=== PATIENT | female | born 1965 | race Caucasian/White ===

== ENCOUNTER 2017-02-14 14:12 | Day surgery (SDC) | payer OTHER ==
[~2017-02-14 14:12] MED LIST: METO50TA PO; MULT-65 PO; PROM25TA5 PO
[2017-02-14 14:48] VITALS: BP 124/96; PULSE 86; RESP 18; TEMP 98; O2SAT 98
[2017-02-14] MEDS ORDERED: METO50TA PO (14:54)
[2017-02-14] MEDS ORDERED: PROM12.54 PO (14:54)
[2017-02-14] MEDS ORDERED: MIRT30TA PO (14:54)
[2017-02-14] MEDS ORDERED: VENL75TA PO (14:54)
[2017-02-14] MEDS: SODIUM CHLORID 0.9% 500 ML INJ 500 ML IV SCH (15:15)
[2017-02-14] MEDS ORDERED: INSULIN HUMAN REGULAR 1,000 UNITS/10 ML VIAL SQ PRN (15:15)
[2017-02-14] MEDS ORDERED: POVIDONE IODINE 5% (ANTISEPSIS KIT) 4 APPLICATIONS EACH NARE PRN (15:15)
[2017-02-14] MEDS ORDERED: SODIUM CHLORID 0.9% 500 ML IV PRN (15:15)
[2017-02-14] MEDS ORDERED: METOPROLOL TARTRATE 25 MG TAB PO PRN (15:15)
[2017-02-14] MEDS ORDERED: LORazepam 1 MG TAB SL SCH (15:15)
[2017-02-14] MEDS ORDERED: CHLORHEXIDINE GLUCONATE 2 % 1 PACK (2 CLOTHS) TOPICAL PRN (15:15)
[2017-02-14] MEDS ORDERED: LACTATED RINGER'S 1000 ML IV PRN (15:15)
[2017-02-14] MEDS ORDERED: PROPOFOL 200 MG/20 ML AMP OTHER ONE (15:23)
[2017-02-14 15:24] LABS: AUTOMATED NEUTROPHIL # 3.7 TH/MM3 (1.8-7.7); BASOPHIL % 0.6 % (0.0-2.0); EOSINOPHIL % 0.7 % (0.0-4.0); HEMATOCRIT 39.7 % (35.0-46.0); HEMO FLAGS DIFF FINAL; LYMPH % 27.7 % (9.0-44.0); LYMPHOCYTE # 1.7 TH/MM3 (1.0-4.8); MEAN CELL VOLUME 109.4 FL (80.0-100.0); MEAN CORPUSCULAR HEMOGLOBIN 36.9 PG (27.0-34.0); MEAN CORPUSCULAR HGB CONC 33.7 % (32.0-36.0); MONO % 9.9 % (0.0-8.0); NEUT % 61.1 % (16.0-70.0); PLATELET COUNT 224 TH/MM3 (150-450); RED BLOOD COUNT 3.63 MIL/MM3 (4.00-5.30); RED CELL DISTRIBUTION WIDTH 13.8 % (11.6-17.2)
[2017-02-14 15:28] LABS: BICARBONATE 25.3 MEQ/L (21.0-32.0); POTASSIUM 4.3 MEQ/L (3.5-5.1)
[2017-02-14] MEDS ORDERED: MIDAZOLAM HCL 2 MG/2 ML VIAL ONE (15:28)
[2017-02-14] MEDS ORDERED: ISOPROTERENOL HCL 1 MG/5 ML AMP ONE (15:28)
[2017-02-14 15:35] LABS: APTT (PATIENT) 23.8 SEC (24.3-30.1); PROTHROMBIN TIME - PATIENT 10.5 SEC (9.8-11.6)
--- NOTE | 2017-02-14 17:08 | CATHPROC ---
[employer] HIS Report Study Information Study Number Admission Scheduled Start Study Start [id number] Feb 14 2017 2:12PM 02/14/2017 Feb 14 2017 3:21PM [place] Service Electrophysiology Study Admit Source Facility Department Other [facility] - Tech Ed/Woodshop Teacher Physician and Clinical Staff Initial Marcy Benson Automobile Parts Assembler Glenroy Sal,RT(R) Other Anesthesia, TMR TEACHER Other Leti Kruger,RT(R) TECH2 Recorder Corinna Palomino RN Procedures Performed Procedure Location (Site) Vessel Name RF Ablation Isthmus Other Equipment Time Dairy Specialist Description Size Mfg Part Number Used/Scraped BIOSENSE ARANA CATHETER, CELSIUS, 4MM, D [id number] 16:33 FR 7 Used INC. TYPE QUAD *[id number] 15:24 Virtual[employer] INDUSTRIES PACK, CCL CUSTOM * Used *[id number] 15:24 Virtual[employer] PACER BUCIO, LIMB * 2530 *[id number] Used [id number] 15:24 Dweho BLANKET,WARM AIR CCL * Used *[id number] 15:27 [employer] MEDICAL CATHETER, JSN, QUAD FR 5 Used *[id number] 15:25 [employer] MEDICAL CATHETER, JSN, QUAD FR 5 Used *[id number] 15:25 [employer] MEDICAL CATHETER, JSN, QUAD FR 5 Used *[id number] 15:25 [employer] MEDICAL CATHETER, JSN, QUAD FR 5 Used *[id number] 15:24 [employer] MEDICAL ELECTRODE KIT, UBALDO X SURFACE * [id number] Used [id number] 15:26 [employer] MEDICAL SHEATH, EPS, FR5 FAST CATH FR 5 Used *[id number] 15:26 [employer] MEDICAL SHEATH, EPS, FR5 FAST CATH FR 5 Used *[id number] 15:26 [employer] MEDICAL SHEATH, EPS, FR5 FAST CATH FR 5 Used *[id number] 15:26 [employer] MED[employer] SHEATH, EPS, FR6 FAST CATH FR [address] [id number] Used 15:26 [employer] MED[employer] SHEATH, EPS, FR8 FAST CATH FR 8 [id number] Used [facility], ELECTROSURGICAL 15:24 * [id number] *[id number] Used SURGICAL GROUNDING (BLUE) History: Risk Factors Family History of Hypertension Dyslipidemia Previous ND Previous Heart Failure Premature CAD Yes No No No No Prior Valve Prior PCI Prior CABG Surgery No No No Cerebrovascular Peripheral Artery Chronic Lung On Dialysis Diabetes Disease Disease Disease No No No Yes No Medication Medication Total Dose (Bolus/Oral) Medication Total Dosage/Unit 1% XYLOCAINE 40 mL Medications (Bolus/Oral) Medication Time Given Dosage/Unit Administered By Reason 1% XYLOCAINE 02/14/2017 4:22:07 PM 20 mL George, Matteoseema 20 mL 1% XYLOCAINE given in lab by Marcy Vazquez in Right Groin via Subcutaneous. Ordered by Ananth Vazquez. 1% XYLOCAINE 02/14/2017 4:26:00 PM 20 mL George, Hanscy 20 mL 1% XYLOCAINE given in lab by Marcy Vazquez in Right Groin via Subcutaneous. Ordered by Ananth Vazquez. Initial Case Assessment Cardiovascular HR Rhythm NIBP Chest Pain 87 SR 132/81 0 Edema Present Skin color Skin None Normal Warm Dry Circulatory - Right Pulses Dorsalis Pedis 2 Scale (0,1,2,3,4,d) Circulatory - Left Pulses Dorsalis Pedis 2 Scale (0,1,2,3,4,d) Neurological State Oriented to time-place- Alert Moves all extremities person Respiration - General Respiration Rate SpO2 (%) O2 (lpm) (B/min) 18 100 2 Final Case Assessment Cardiovascular HR Rhythm NIBP Chest Pain 100 ST 94/58 0 Edema Present Skin color Skin None Normal Warm Dry Circulatory - Right Pulses Dorsalis Pedis 2 Scale (0,1,2,3,4,d) Circulatory - Left Pulses Dorsalis Pedis 2 Scale (0,1,2,3,4,d) Neurological State Oriented to time-place- Alert Moves all extremities person Respiration - General Respiration Rate SpO2 (%) O2 (lpm) (B/min) 18 100 2 Chronological Log Time Study Chronological Log 15:23:54 Patient arrived via Bed. 15:23:56 Patient Name, D.O.B, / Armband Verified By R.N. 15:23:57 Consent signed by the physician and the patient and verified by the Tech Ed/Woodshop Teacher staff. 15:23:58 Pre-op and post- op instructions given; patient acknowledges understanding of instructions. 15:24:04 Anesthesia at bedside. Assumes care of patient. SEE RECORDS FOR ALL MEDS AND VITALS DURING PROCEDURE 15:24:05 Presedation assessment performed by Tech Ed/Woodshop Teacher RN. 15:43:52 Patient has been NPO for More than 6Hrs. 15:43:54 Skin Breakdown- RIGHT KNEE SCAB NOTED 15:44:17 Disposable Defibrillator Pads Placed On Patient. 15:44:19 Marcia Prominences Protected 15:44:20 A # 20 IV was noted in the Antecubital (left). Grade = 0 15:44:43 A # 22 IV was noted in the Forearm (right). Grade = 0 15:45:12 History and physical on the chart or being dictated. Assessment: Initial Case, HR=87 BPM, Rhythm=SR, GQBD=764/81 mmhg, Chest Pain=0, Edema=None, Col or=Normal, Skin = Warm, Dry Right Pulses: Gonzalo Ped=2 15:45:13 Left Pulses: Gonzalo Ped=2 Neurological: State=Alert, Ox3, DOZIER Respiration: Resp=18 B/min, WpH8=761 %, O2=2 lpm 15:46:17 Bilateral groins prepped with 2% chlorhexidine, and with a 3 min. waiting time. 15:49:39 Reference ECG taken Time Out. Correct patient, procedure, procedure equipment, site and side verified with physicia n present. Time 16:20:05 concurred by MD, individual staff and TMR TEACHER. Time Out #2 - Consents verified, patient in correct position, all results are labled and displa yed, safety precautions 16:20:10 taken, antibiotics administered. Time out concurred by MD, individual staff and TMR TEACHER in procedu re 16:21:40 Case Start 16:22:07 20 mL 1% XYLOCAINE given in lab by Marcy Vazquez in Right Groin via Subcutaneous. Ordered b y Marcy Vazquez. 16:22:26 Vascular access was obtained in the Fem Vein (left). 16:22:47 Vascular access was obtained in the Fem Vein (left). 16:22:48 Vascular access was obtained in the Fem Vein (left). 16:25:43 A SHEATH, EPS, FR5 FAST CATH FR 5 was advanced into the Fem Vein (left) using the Modified Seldinger technique. 16:25:51 A SHEATH, EPS, FR5 FAST CATH FR 5 was advanced into the Fem Vein (left) using the Modified Seldinger technique. 16:25:55 A SHEATH, EPS, FR5 FAST CATH FR 5 was advanced into the Fem Vein (left) using the Modified Seldinger technique. 16:26:00 20 mL 1% XYLOCAINE given in lab by Marcy Vazquez in Right Groin via Subcutaneous. Ordered b y Marcy Vazquez. 16:26:06 Vascular access was obtained in the Fem Vein (right). 16:26:09 Vascular access was obtained in the Fem Vein (right). 16:26:12 A SHEATH, EPS, FR6 FAST CATH FR 6 was advanced into the Fem Art (right) using the Modified Seldinger technique. 16:26:17 A SHEATH, EPS, FR8 FAST CATH FR 8 was advanced into the Fem Vein (left) using the Modified Seldinger technique. A CATHETER, JSN, QUAD FR 5 was advanced vis Fem Vein (right) and placed in the CS. Placement wa s visually 16:36:32 confirmed under fluoroscopy. A CATHETER, JSN, QUAD FR 5 was advanced vis Fem Vein (left) and placed in the HIS. Placement wa s visually 16:37:16 confirmed under fluoroscopy. A CATHETER, JSN, QUAD FR 5 was advanced vis Fem Vein (left) and placed in the HRA. Placement wa s visually 16:37:23 confirmed under fluoroscopy. A CATHETER, JSN, QUAD FR 5 was advanced vis Fem Vein (left) and placed in the RVA. Placement wa s visually 16:37:30 confirmed under fluoroscopy. 16:37:56 EP STUDY IN PROGRESS A CATHETER, CELSIUS, 4MM, D TYPE QUAD FR 7 was advanced vis Fem Vein (left) and placed in the I sthmus. 16:43:30 Placement was visually confirmed under fluoroscopy. 16:43:49 RF Ablation of the Isthmus with a CATHETER, CELSIUS, 4MM, D TYPE QUAD FR 7. 16:52:46 ABLATION IN PROGRESS 16:56:45 CATHETER REMOVED Assessment: Final Case, PE=636 BPM, Rhythm=ST, NIBP=94/58 mmhg, Chest Pain=0, Edema=None, Color =Normal, Skin = Warm, Dry Right Pulses: Gonzalo Ped=2 17:01:34 Left Pulses: Gonzalo Ped=2 Neurological: State=Alert, Ox3, DOZIER Respiration: Resp=18 B/min, KaC1=431 %, O2=2 lpm 17:01:35 Catheter(s) removed without difficulty 17:01:36 Sheath(s) left in place, will be removed in Holding Area 17:01:38 Case End 17:01:39 Sterile dressing applied to site 17:01:40 No case complications noted. 17:01:41 Cine recording checked. 17:01:42 Bedside Report will be given. 17:01:52 DOCU called. Spoke to LUPE 17:04:19 Defibrillator and ground pads removed. Skin intact. 17:04:20 Verbal Stimulation=2 Physical Stimulation=2 Airway=2 Respiration=2 TOTAL=8. (0=absent, 1=l imited, 2=present) End Study - Contrast Media Used In Study Contrast Total Opened (mL) Total Used (mL) Total Wasted (mL) Unspecified 0 0 0 End Study - Radiation Exposure Fluoro Time (minutes) 5.3 End Study - Patient Disposition Complications Transferred To Interventional Outcome No Telemetry Bed successful
[2017-02-14] MEDS ORDERED: ATROPINE SULFATE 1 MG/ML VIAL IV PRN (18:30)
[2017-02-14] MEDS ORDERED: METOCLOPRAMIDE HCL 10 MG/2 ML VIAL IV PRN (18:30)
[2017-02-14] MEDS ORDERED: LIDOCAINE HCL 1% 50 ML VIAL INFIL PRN (18:30)
[2017-02-14] MEDS ORDERED: SODIUM CHLOR 0.9% 250 ML INJ 250 ML IV PRN (18:30)
[2017-02-14] MEDS ORDERED: oxyCODONE/ACETAMINOPHEN 5 MG/325 MG TAB PO PRN ×2 (18:30)
[2017-02-14] MEDS ORDERED: ONDANSETRON HCL 4 MG/2 ML VIAL IV PRN (18:30)
[2017-02-14] MEDS ORDERED: LORazepam 2 MG/ML VIAL IV PRN (18:30)
--- NOTE | 2017-02-14 19:44 | EKG ---
Date Performed: 02/14/2017 Time Performed: 15:12:16 PTAGE: 51 years EKG: Sinus rhythm Indeterminate axis Borderline ECG NO PREVIOUS TRACING DOCTOR: Isidoro Styles Interpretating Date/Time 02/14/2017 19:42:37
[2017-02-14 20:00] VITALS: BP 118/81; PULSE 93; RESP 20; TEMP 98.4; O2SAT 97
[2017-02-14 21:00] VITALS: PULSE 94
[2017-02-14] MEDS ORDERED: MIRTAZAPINE 15 MG TAB PO SCH (21:00)
[2017-02-14 22:00] VITALS: PULSE 94
[2017-02-14] MEDS ORDERED: BACITRACIN OINT 0.9 GM PKT TOP ONE (22:00)
[2017-02-14] MEDS ORDERED: VENLAFAXINE 75 MG PO SCH (22:00)
--- NOTE | 2017-02-14 22:24 | EKG ---
Date Performed: 02/14/2017 Time Performed: 18:57:36 PTAGE: 51 years EKG: Sinus rhythm Normal ECG PREVIOUS TRACING : 02/14/2017 15.12 No significant change from previous tracing noted. DOCTOR: Isidoro Styles Interpretating Date/Time 02/14/2017 22:23:49
[2017-02-14 23:00] VITALS: PULSE 90
[2017-02-15] VITALS (14 sets, daily range): BP systolic 120–144; BP diastolic 87–96; PULSE 8–103; RESP 18–20; TEMP 98.2–98.4; O2SAT 97
[2017-02-15] MEDS: METOPROLOL TARTRATE 50 MG TAB PO SCH ×2 (00:22→08:48)
[2017-02-15] MEDS: SODIUM CHLORID 0.9% 500 ML INJ 500 ML IV SCH (07:55)
--- NOTE | 2017-02-15 13:13 | HHI.PR ---
Subjective Remarks Feel better. No palpitation. Objective Vital Signs Date Time Temp Pulse Resp B/P Pulse Ox O2 Delivery O2 Flow Rate FiO2 02/15/17 13:00 74 02/15/17 12:00 74 02/15/17 11:37 98.2 74 20 120/88 97 02/15/17 11:00 87 02/15/17 10:00 69 02/15/17 09:00 68 02/15/17 08:00 98.3 74 20 126/91 97 02/15/17 08:00 70 02/15/17 07:00 70 02/15/17 05:00 80 02/15/17 04:00 98.4 70 18 144/96 97 02/15/17 04:00 72 02/15/17 03:00 72 02/15/17 02:00 72 02/15/17 01:00 78 02/15/17 00:00 86 02/15/17 00:00 98.2 103 19 122/87 97 02/14/17 23:00 90 02/14/17 22:00 94 02/14/17 21:00 94 02/14/17 21:00 94 02/14/17 20:00 98.4 93 20 118/81 97 02/14/17 17:23 97 Room Air 02/14/17 14:48 98.0 86 18 124/96 98 I/O 02/14/17 02/14/17 02/14/17 02/15/17 02/15/17 02/15/17 07:00 15:00 23:00 07:00 15:00 23:00 Intake Total 240 ml Output Total 300 ml Balance -60 ml Intake Oral 240 ml Output Urine Total 300 ml Result Diagram: 02/14/17 1445 02/14/17 1445 Imaging Alert, fully oriented Lungs: Ventilated Heart: S1, S2 Abdomen: soft, no mass Ext: no edema Current Medications Medications (Trade) Dose Ordered Sig/Yunier Route Start Time Stop Time Status Last Admin Sodium Chloride 500 ml @ 30 mls/hr [id number] IV 02/14/17 15:15 Lactated Ringer's 1,000 ml @ 30 mls/hr Q24H PRN IV 02/14/17 15:15 02/17/17 15:14 (NS 500 ml Inj) 500 ml @ 30 mls/hr [id number] PRN IV 02/14/17 15:15 02/17/17 15:14 (Percocet 5-325 Mg) 1 tab Q4H PRN PO 02/14/17 18:30 (Percocet 5-325 Mg) 2 tab Q4H PRN PO 02/14/17 18:30 02/15/17 00:22 (Ativan Inj) 0.5 mg UNSCH PRN IV 02/14/17 18:30 02/15/17 18:29 Atropine Sulfate 0.5 mg 0.5 mg UNSCH PRN IV 02/14/17 18:30 (NS 250 ml Inj) 250 ml @ 500 mls/hr ONCE PRN IV 02/14/17 18:30 02/15/17 18:29 (Reglan Inj) 10 mg Q4H PRN IV 02/14/17 18:30 (Zofran Inj) 4 mg Q4H PRN IV 02/14/17 18:30 (Xylocaine 1% Inj (50 ml)) 10 ml UNSCH PRN INFIL 02/14/17 18:30 02/15/17 18:29 (Lopressor) 50 mg BID PO 02/14/17 21:00 02/15/17 08:48 (Remeron) 30 mg HS PO 02/14/17 21:00 02/15/17 00:21 Patient Own Medication PT OWN MED: Venlafax... Q12H PO 02/14/17 22:00 Hold (Pneumovax-23 Inj) 25 mcg ONCE ONCE IM 02/16/17 10:00 02/16/17 10:01 Assessment and Plan Problem List: (1) Palpitations Status: Acute Plan: No new episode reported (2) SVT (supraventricular tachycardia) Status: Acute Plan: SP ablation. Doing well. Will be Marcy Uribe MD Feb 15, 2017 13:13
--- NOTE | 2017-02-15 13:30 | MA ---
cc: IAN REBOLLEDO M.D. 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 INDICATIONS Mrs. Barakat is a 51-year-old female with an episode of frequent tachyarrhythmia previously emergency room visit, referred for electrophysiology study and ablation. The risks, the nature and the benefit of the procedure are clearly stated to her. The risks include pneumothorax, cardiac perforation, stroke, need for open heart surgery and even . The patient understood and agreed to proceed. PROCEDURE After written informed consent was obtained, the patient was brought to the EP lab where she was prepped and draped in the usual sterile fashion. Conscious sedation was initiated and maintained throughout the procedure by anesthesiologist. Once sedation verified, the left inguinal area was anesthetized with 2% Xylocaine. Using modified Seldinger technique, the left femoral vein was cannulated on three occasions and three guidewires were advanced over the wire, three 5-Bangladeshi Hemaquets were advanced. Then the right femoral vein was cannulated on two occasions and two guidewires were advanced. Over the wire, one 6 and one 8-Bangladeshi Hemaquet were advanced. Then under fluoroscopic guidance through the 5 and 6-Bangladeshi the Hemaquet, three 5-Bangladeshi Tatum curved quadripolar electrophysiology catheters were advanced and positioned on the His, upper right atrium, coronary sinus and right ventricular apex. During catheter manipulation, the patient was induced into supraventricular tachyarrhythmia with intracardiac characteristics of AV ann reentrant tachycardia. It was paced terminated. Then atrial pacing protocol was performed. During atrial pacing protocol during incremental atrial pacing, a Wenckebach was not reached. The patient went into AV ann reentrant tachycardia. Then again as program stimulation was performed, jump and echo beat observed and the patient went into a supraventricular tachyarrhythmia with intracardiac characteristics of AV ann reentrant tachycardia. Ventricular pacing protocol was performed. There was VA conduction it was concentric. At that point, through the 8-Bangladeshi Hemaquet, a Cordis Son a D curve 4 mm mapping radiofrequency ablation catheter was advanced. Using [employer] endocardial solution mapping system, a three-dimensional configuration of the right atrium was obtained. Then the catheter was placed at the tricuspid valve annulus. and a small trifurcated observed. Radiofrequency energy was delivered. The patient was in junctional rhythm. Further burn was delivered in the area. Then atrial pacing protocol was performed. Again Wenckebach reached around 380 milliseconds. Then atrial pacing protocol was performed. No tachyarrhythmia was induced. At that point because the heart rate was so high 115, there was no need for an Isuprel infusion. All catheters were removed. The patient tolerated the procedure. Blood loss minimal. No incident report. 1. Electrocardiogram: At baseline, the patient was in sinus, postprocedure electrocardiogram unchanged. 2. Basic interval. The base cycle length was around 610 milliseconds. AH was around 90 and HV was around 50 milliseconds. 3. Atrial pacing protocol. Wenckebach post ablation was around 380 milliseconds. 4. Ventricular pacing protocol. There was VA conduction. It was concentric. 5. Tachyarrhythmia. 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 Slow pathway was mapped and ablated. Ablation was successful. CONCLUSION Successful electrophysiology study, mapping and radiofrequency ablation of AV ann reentrant tachycardia, COMMENT AND RECOMMENDATIONS The patient going to be transferred to the telemetry unit. He will be observed and when stable can be discharged home. MD SADA Alvarado/NATIVIDAD /1:15 PM /1:24 PM
[2017-02-16] MEDS ORDERED: PNEUMOCOCCAL POLYVALENT INJ 25 MCG/0.5 ML SYR IM ONE (10:00)
== END 2017-02-15 13:58 | disposition home or self-care (01) ==
LOC: HDOC 14:12 → HDIC 14:15 → HCIS 20:08 → HDOC 02-15 13:58
PROVIDERS: ATTEND Internal Medicine Interventional Cardiology
DX: I47.1 Supraventricular tachycardia (principal); R00.2 Palpitations; J44.9 Chronic obstructive pulmonary disease, unspecified; F17.210 Nicotine dependence, cigarettes, uncomplicated; R79.1 Abnormal coagulation profile
CPT/HCPCS: 00537; 80048; 85025; 85610; 85730; 86850; 86900; 86901; 93005; 93613; 93623; 93653; C1730; C1732; C2630; J2250; J3010

== ENCOUNTER 2017-12-24 17:34 | Emergency (ER) | payer OTHER ==
[~2017-12-24 17:34] MED LIST changes: +MIRT30TA PO; -MULT-65 PO; +PROM12.54 PO; -PROM25TA5 PO; +VENL75TA PO
[2017-12-24 18:24] VITALS: BP 138/73; PULSE 81; RESP 20; O2SAT 100
[2017-12-24] MEDS ORDERED: LORA-392 PO (18:30)
[2017-12-24] MEDS ORDERED: SERO25TA PO (18:30)
[2017-12-24 19:10] VITALS: BP 96/59; PULSE 119; RESP 32
[2017-12-24 19:35] VITALS: TEMP 99.9
[2017-12-24 19:37] LABS: AUTOMATED NEUTROPHIL # 3.5 TH/MM3 (1.8-7.7); BASOPHIL # 0.1 TH/MM3 (0-0.2); EOSINOPHIL # 0.1 TH/MM3 (0-0.4); EOSINOPHIL % 0.9 % (0.0-4.0); HEMATOCRIT 28.4 % (35.0-46.0); HEMOGLOBIN 9.3 GM/DL (11.6-15.3); LYMPH % 31.3 % (9.0-44.0); LYMPHOCYTE # 1.9 TH/MM3 (1.0-4.8); MEAN CELL VOLUME 105.8 FL (80.0-100.0); MEAN CORPUSCULAR HEMOGLOBIN 34.7 PG (27.0-34.0); MEAN CORPUSCULAR HGB CONC 32.8 % (32.0-36.0); MEAN PLATELET VOLUME 9.5 FL (7.0-11.0); MONO % 9.8 % (0.0-8.0); MONOCYTE # 0.6 TH/MM3 (0-0.9); PLATELET COUNT 326 TH/MM3 (150-450); RED BLOOD COUNT 2.68 MIL/MM3 (4.00-5.30); RED CELL DISTRIBUTION WIDTH 17.8 % (11.6-17.2); WHITE BLOOD COUNT 6.1 TH/MM3 (4.0-11.0)
[2017-12-24 19:55] LABS: ALBUMIN 3.1 GM/DL (3.4-5.0); ALT (GPT) 27 U/L (10-53); AST (GOT) 28 U/L (15-37); BICARBONATE 26.1 MEQ/L (21.0-32.0); BLOOD UREA NITROGEN 15 MG/DL (7-18); CHLORIDE 107 MEQ/L (98-107); CREATININE 1.39 MG/DL (0.50-1.00); GLOMERULAR FILTRATION RATE 40 ML/MIN (>89); GLUCOSE,RANDOM 66 MG/DL (74-106); MAGNESIUM 1.2 MG/DL (1.5-2.5); SODIUM (NA) 142 MEQ/L (136-145)
[2017-12-24 19:57] LABS: ALKALINE PHOSPHATASE 99 U/L (45-117); TOTAL BILIRUBIN ADULT 0.4 MG/DL (0.2-1.0); TOTAL PROTEIN 7.1 GM/DL (6.4-8.2)
--- NOTE | 2017-12-24 19:59 | PD ---
HPI Chief Complaint: Abnormal Results Time Seen by Provider: 18:26 Travel History International Travel<30 days: No Contact w/Intl Traveler<30days: No Traveled to known affect area: No History of Present Illness HPI 52-year-old female that presents to the ED via [facility] for evaluation of abnormal results. Patient currently staying out of the sun but we will nursing center secondary to metabolic encephalopathy believed to be secondary to her alcohol abuse and possible Wernicke's encephalopathy. Patient apparently has been hallucinating having confusion as well as a UTI and kidney failure was evaluated at a different facility. Patient has been in his ROULA secondary to the confusion and behavioral changes. Apparently the had some blood work done today that showed that her hemoglobin was 7.9. She denies any other medical issues. She denies any symptoms to me what she does appear to be actively confused. Unclear if this is her baseline but per medical record she already has confusion. She denies any bowel movement changes but does tell me that her stools have been dark but she also tells me that she was started on iron recently. She denies taking any blood thinners. She denies any chest pain or shortness of breath. No weakness. Per patient she feels "good". Patient came here with paperwork from the SNF that show low hemoglobin of 7.9 blood work done today at outside facility. PFSH Past Medical History Asthma: Yes Bipolar Disorder: Yes Anxiety: Yes Depression: Yes Heart Rhythm Problems: Yes Cancer: No Cardiovascular Problems: Yes (SVT AND PROXIMAL ATERIAL TACHY) High Cholesterol: Yes Chest Pain: No Congestive Heart Failure: No COPD: Yes Diabetes: No Diminished Hearing: No GERD: No Genitourinary: No Hiatal Hernia: No Hypertension: Yes Immune Disorder: No Musculoskeletal: No Neurologic: No Psychiatric: Yes (HALLUCINATIONS) Reproductive: No Respiratory: Yes Immunizations Current: Yes Renal Failure: Yes Sickle Cell Disease: No Thyroid Disease: No Ulcer: No ?: Not Menopausal: Yes : 1 Para: 1 Past Surgical History AICD: No Arteriovenous Shunt: No Gynecologic Surgery: Yes (HYSTERECTOMY) Hysterectomy: Yes Social History Alcohol Use: Yes (DAILY- 3 LIQUOR/DAY) Tobacco Use: Yes (1PPD) Substance Use: No Allergies-Medications (Allergen,Severity, Reaction): Coded Allergies: No Known Allergies (Unverified , 03/07/16) Reported Meds & Prescriptions Reported Meds & Active Scripts Active Reported Seroquel (Quetiapine Fumarate) 25 Mg Tab 75 Mg PO DAILY Ativan (Lorazepam) 0.5 Mg Tab 0.5 Mg PO BID PRN Review of Systems ROS Limitations: Poor Historian Except as stated in HPI: all other systems reviewed are Neg Physical Exam Exam Limitations: Poor Historian Narrative GENERAL: SKIN: Warm and dry. HEAD: Atraumatic. Normocephalic. EYES: Pupils equal and round. No scleral icterus. No injection or drainage. ENT: No nasal bleeding or discharge. Mucous membranes pink and moist. Tongue is midline. No uvula deviation. NECK: Trachea midline. No JVD. CARDIOVASCULAR: Regular rate and rhythm. No murmurs, S3, S4. RESPIRATORY: No accessory muscle use. Clear to auscultation. Breath sounds equal bilaterally. GASTROINTESTINAL: Abdomen soft, non-tender, nondistended. Hepatic and splenic margins not palpable. MUSCULOSKELETAL: Extremities without clubbing, cyanosis, or edema. No obvious deformities. Full range of motion of the upper and lower extremities bilaterally. 2+ pulses bilaterally. NEUROLOGICAL: Awake and alert. No obvious cranial nerve deficits. Motor grossly within normal limits. Five out of 5 muscle strength in the arms and legs. Normal speech. PSYCHIATRIC: confused mood and affect; insight and judgment minimal Data Data Last Documented VS Vital Signs Date Time Temp Pulse Resp B/P (MAP) Pulse Ox O2 Delivery O2 Flow Rate FiO2 12/24/17 19:35 99.9 12/24/17 18:24 81 20 100 Room Air Orders Orders Complete Blood Count With Diff (12/24/17 18:27) Comprehensive Metabolic Panel (12/24/17 18:27) Prothrombin Time / Inr (Pt) (12/24/17 18:27) Act Partial Throm Time (Ptt) (12/24/17 18:27) Magnesium (Mg) (12/24/17 18:27) Iv Access Insert/Monitor (12/24/17 18:27) Type And Screen (12/24/17 18:27) Urinalysis - C+S If Indicated (12/24/17 18:50) Lactic Acid Sepsis Protocol (12/24/17 19:39) Ed Discharge Order (12/24/17 20:59) Labs Laboratory Tests Test 12/24/17 16:35 12/24/17 19:47 White Blood Count 6.1 TH/MM3 Red Blood Count 2.68 MIL/MM3 Hemoglobin 9.3 GM/DL Hematocrit 28.4 % Mean Corpuscular Volume 105.8 FL Mean Corpuscular Hemoglobin 34.7 PG Mean Corpuscular Hemoglobin Concent 32.8 % Red Cell Distribution Width 17.8 % Platelet Count 326 TH/MM3 Mean Platelet Volume 9.5 FL Neutrophils (%) (Auto) 57.0 % Lymphocytes (%) (Auto) 31.3 % Monocytes (%) (Auto) 9.8 % Eosinophils (%) (Auto) 0.9 % Basophils (%) (Auto) 1.0 % Neutrophils # (Auto) 3.5 TH/MM3 Lymphocytes # (Auto) 1.9 TH/MM3 Monocytes # (Auto) 0.6 TH/MM3 Eosinophils # (Auto) 0.1 TH/MM3 Basophils # (Auto) 0.1 TH/MM3 CBC Comment DIFF FINAL Differential Comment Prothrombin Time 9.8 SEC Prothromb Time International Ratio 1.0 RATIO Activated Partial Thromboplast Time 25.2 SEC Blood Urea Nitrogen 15 MG/DL Creatinine 1.39 MG/DL Random Glucose 66 MG/DL Total Protein 7.1 GM/DL Albumin 3.1 GM/DL Calcium Level 9.0 MG/DL Magnesium Level 1.2 MG/DL Alkaline Phosphatase 99 U/L Aspartate Amino Transf (AST/SGOT) 28 U/L Alanine Aminotransferase (ALT/SGPT) 27 U/L Total Bilirubin 0.4 MG/DL Sodium Level 142 MEQ/L Potassium Level 4.3 MEQ/L Chloride Level 107 MEQ/L Carbon Dioxide Level 26.1 MEQ/L Anion Gap 9 MEQ/L Estimat Glomerular Filtration Rate 40 ML/MIN Lactic Acid Level 1.6 mmol/L [facility] Medical Decision Making Medical Screen Exam Complete: Yes Emergency Medical Condition: Yes Medical Record Reviewed: Yes Interpretation(s) CBC & BMP Diagram 12/24/17 16:35 Total Protein 7.1, Albumin 3.1 L, Calcium Level 9.0, Magnesium Level 1.2 L, Alkaline Phosphatase 99, Aspartate Amino Transf (AST/SGOT) 28, Alanine Aminotransferase (ALT/SGPT) 27, Total Bilirubin 0.4 coags WNL Differential Diagnosis Low hemoglobin versus bleeding versus altered mental status Narrative Course 52-year-old female that presents to the ED for evaluation of low hemoglobin. Patient was properly examined and was found to have signs and symptoms of unclear etiology likely secondary to low hemoglobin. Blood work was done here. I reviewed her medical records and she did appear to have some normal hemoglobin on the 10th of this month. Hemoglobin here is in the nines. Hemoccult was done and was negative. Labs and imaging were essentially unremarkable return for low hemoglobin on the 9s. Patient has no signs of active bleeding at this time with Hemoccult negative. Patient's MCV is highly elevated and likely secondary to B12 deficiency secondary to alcohol abuse. Case discussed with my attending Dr Hurd who agrees with discharge back to SNF for further evaluation of anemia. See ED if worst. F/u with PCP. [facility] Point of Care Internal Pos. & Neg. Controls: Passed Fecal Specimen Occult Blood: Negative Diagnosis Primary Impression: Anemia Qualified Codes: D64.9 - Anemia, unspecified Patient Instructions: General Instructions Additional Instructions: F/u with PCP. See ED if worsening symptoms. Med/Other Pt SpecificInfo: No Change to Meds Disposition: 01 DISCHARGE HOME Condition: Stable Fredy Martinez December 24, 2017 19:59
[2017-12-24 20:05] LABS: PROTHROMBIN TIME - PATIENT 9.8 SEC (9.8-11.6)
--- NOTE | 2017-12-25 16:53 | EKG ---
Date Performed: 12/24/2017 Time Performed: 18:35:10 PTAGE: 52 years EKG: Sinus rhythm INDETERMINATE AXIS ATYPICAL ECG PREVIOUS TRACING 02/14/2017 @ 18.57.36 Since the previous tracing, no significant change noted DOCTOR: Richar Mccoy Interpretating Date/Time 12/25/2017 16:50:54
[2017-12-27] MEDS ORDERED: FERR325T18 PO (13:16)
[2017-12-27] MEDS ORDERED: COLA100C5 PO (13:16)
[2017-12-27] MEDS ORDERED: PANT20 PO (13:20)
[2017-12-27] MEDS ORDERED: LORA-392 PO (13:30)
[2017-12-30] MEDS ORDERED: AMLO5TAB2 PO (12:48)
== END 2017-12-24 21:47 | disposition home or self-care (01) ==
LOC: NEPE 17:34
DX: I12.9 Hypertensive chronic kidney disease with stage 1 through stage 4 chronic kidney disease, or unspecified chronic kidney disease (principal); F17.200 Nicotine dependence, unspecified, uncomplicated; N18.9 Chronic kidney disease, unspecified; D63.1 Anemia in chronic kidney disease
CPT/HCPCS: 80053; 83605; 83735; 85025; 85610; 85730; 86850; 86900; 86901; 93005; 99284

== ENCOUNTER 2017-12-26 00:35 | Inpatient (IN) ==
[2018-02-03] MEDS ORDERED: Acetaminophen 325 MG Tablet PO PRN (00:01)
[2018-02-03] MEDS ORDERED: Naloxone Inj 0.4 MG/ML Vial IV.PUSH PRN (00:01)
[2018-02-03] MEDS ORDERED: Bisacodyl 10 MG Supp RECTAL PRN (00:01)
[2018-02-03] MEDS ORDERED: Haloperidol Inj 5 MG/ML Ampul IM PRN (00:01)
[2018-02-03] MEDS: Senna/Docusate Sodium 8.6/50 MG Tablet PO SCH ×2 (08:22→22:04)
[2018-02-03] MEDS: Metoprolol Tartrate 50 MG Tablet PO SCH ×2 (08:22→22:04)
--- NOTE | 2018-02-03 16:22 | P.PNIM ---
Subjective Interval history: No acute changes overnight Physical Exam Vital signs: Intake & Output 02/02/18 02/03/18 02/03/18 18:59 06:59 18:59 Intake Total 444 / 444 Balance 444 / 444 Weight 53.6 kg 53.8 kg Intake: Oral 444 / 444 Other: # Voids 2 # Bowel Movements 0 Narrative: General: NAD, pleasantly confused Chest: CTA Cardiac: Regular Abd: +BS, soft, ND/NT Ext: No edema Results - Labs CBC & Chem 7: 01/07/18 08:55 12/25/17 22:10 Assessment and Plan - Assessment (1) Altered mental status Code(s): R41.82 - Altered mental status, unspecified Status: Acute Plan: - The patient is a 52 year old female with past medical history which includes Abnormal LFTs, EtOH abuse, chronic back pain, COPD, hypertension, SVT. Patient was brought to [facility] on 12/13 by friend for confusion x 2 weeks weakness and flu like symptoms. Patient was admitted to [facility] from 12/13/17 to 12/18/17 treated for metabolic encephalopathy related to UTI and then DC'd to [facility]. Patient was seen in the emergency department related to altered mentation and anemia . The patient at that time was had hemoglobin of 9.3 and her rectal examination was negative for blood. She was deemed safe for discharge with follow-up as an outpatient. Patient again presented to the ER 12/25/17 for increased altered mentation since falling at her half-way at approximately 8 :15 AM 12/25. The patient has a baseline history of altered mentation that is thought to be related to her history of alcohol abuse and Wernicke's encephalopathy. - CT head negative - CXR reviewed the lungs are clear - UA does not indicate UTI, no culture indicated - Patient has ETOH abuse - [facility] protocol - Cont. folic acid and thiamine - Ammonia level 15 - TSH 3.710 - RPR nonreactive - EtOH use and review of prior records patient had been drinking 1.5-2 bottles of wine a day and had been decreasing intake. Patient has recently been admitted to [facility] possibility of EtOH withdrawal causing altered mental status. - PT evaluated - Appreciate Psych evaluation. They did not feel that the patient met criteria for involuntary psychiatric admission. It was felt that the pt may benefit from comprehensive inpatient/outpatient alcohol rehabilitation program. - Supportive care - DC order placed on 12/27/17- case management working on safe DC - CM has enlisted help from Adult Protective Services. No progress has been made to obtain an accepting facility. - Psychiatry re-evaluated 01/08/18- patient does not meet inpatient psych admission criteria - Seroquel to 75mg qPM added on 01/12/18 - Awaiting safe discharge. - Re-consulted psych for competency evaluation, and they declared pt not competent to make her own medical decisions. - [place] [employer] assisting with Medicaid disability application and discharge planning. - Discussed with CM and RN. (2) Anemia Code(s): D64.9 - Anemia, unspecified Status: Chronic Plan: - On admission hgb 7.8, Hct 23.7, MCV 105.1 - 12/27/2017 hemoglobin improved 8.4 - 01/07/18 hemoglobin 10.3, Hct 31.2, MCV 101.9 - patient does have hx of ETOH abuse - B12 359 and folic acid 12.2 - Iron 48, total iron-binding capacity 183, percent saturation 26.2 - GI was consulted for possible EGD but unable to get consent so was recommended for outpt followup (3) Hypomagnesemia Code(s): E83.42 - Hypomagnesemia Status: Acute Plan: - magnesium 1.3 on admission - Pt was given replacement (4) Tachyarrhythmia Code(s): R00.0 - Tachycardia, unspecified Status: Chronic Plan: - Pt with history of tachyarrhythmia - s/p EPS with ablation of AV re-entry node tachycardia Dr. Vazquez 2016 - Pt started on Metoprolol 25mg po BID with initial improvement in HR - increased metoprolol to 50mg BID on 01/11/18, HR stable (5) ETOH abuse Code(s): F10.10 - Alcohol abuse, uncomplicated Status: Chronic Plan: - [facility] protocol - thiamine and folic acid - seizure precautions (6) COPD (chronic obstructive pulmonary disease) Code(s): J44.9 - Chronic obstructive pulmonary disease, unspecified Status: Chronic Plan: - Does not appear to be in acute exacerbation - duonebs if needed (7) HTN (hypertension) Code(s): I10 - Essential (primary) hypertension Status: Chronic Plan: - Blood pressure was elevated during admission - Pt was initially started on amlodipine 5 mg p.o. daily but with tachyarrhythmia the Norvasc was stopped and Metoprolol added - BP has been stable. - Attending Attestation Patient examined. Assessment and plan formulated with Deirdre Olmstead PA-C. I agree with the above. (2) Anemia Qualifiers: Anemia type: unspecified type Qualified Code(s): D64.9 - Anemia, unspecified
[2018-02-03] MEDS: LORazepam 0.5 MG Tablet PO PRN (22:05)
[2018-02-03] MEDS: QUEtiapine 25 MG Tablet PO SCH (22:05)
[2018-02-04] MEDS: Senna/Docusate Sodium 8.6/50 MG Tablet PO SCH ×2 (09:47→21:39)
[2018-02-04] MEDS: Metoprolol Tartrate 50 MG Tablet PO SCH ×2 (09:47→21:39)
[2018-02-04] MEDS: LORazepam 0.5 MG Tablet PO PRN ×2 (10:17→17:06)
--- NOTE | 2018-02-04 16:52 | P.PNIM ---
Subjective Interval history: No new complaints. Physical Exam Vital signs: Vital Signs 02/03/18 21:38 02/04/18 08:00 Temperature 97.5 F L 97.9 F Pulse Rate 90 81 Respiratory Rate 18 17 Blood Pressure 122/82 112/73 Pulse Oximetry 97 98 Intake & Output 02/03/18 02/04/18 02/04/18 18:59 06:59 18:59 Intake Total 600 / 600 Balance 600 / 600 Weight 53.7 kg Intake: Oral 600 / 600 Other: # Voids 3 Narrative: GENERAL: This is a well-nourished, well-developed patient, in no apparent distress. CARDIOVASCULAR: Regular rate and rhythm without murmurs, gallops, or rubs. RESPIRATORY: Clear to auscultation. Breath sounds equal bilaterally. No wheezes , rales, or rhonchi. GASTROINTESTINAL: Abdomen soft, non-tender, nondistended. Normal active bowel sounds MUSCULOSKELETAL: Extremities without clubbing, cyanosis, or edema. NEURO: Alert & Oriented x2, but confused at times. DOZIER Results - Labs CBC & Chem 7: 01/07/18 08:55 12/25/17 22:10 Assessment and Plan - Assessment (1) Altered mental status Code(s): R41.82 - Altered mental status, unspecified Status: Acute Plan: - The patient is a 52 year old female with past medical history which includes Abnormal LFTs, EtOH abuse, chronic back pain, COPD, hypertension, SVT. Patient was brought to [facility] on 12/13 by friend for confusion x 2 weeks weakness and flu like symptoms. Patient was admitted to [facility] from 12/13/17 to 12/18/17 treated for metabolic encephalopathy related to UTI and then DC'd to [facility]. Patient was seen in the emergency department related to altered mentation and anemia . The patient at that time was had hemoglobin of 9.3 and her rectal examination was negative for blood. She was deemed safe for discharge with follow-up as an outpatient. Patient again presented to the ER 12/25/17 for increased altered mentation since falling at her residential at approximately 8 :15 AM 12/25. The patient has a baseline history of altered mentation that is thought to be related to her history of alcohol abuse and Wernicke's encephalopathy. - CT head negative - CXR reviewed the lungs are clear - UA does not indicate UTI, no culture indicated - Patient has ETOH abuse - [facility] protocol - Cont. folic acid and thiamine - Ammonia level 15 - TSH 3.710 - RPR nonreactive - EtOH use and review of prior records patient had been drinking 1.5-2 bottles of wine a day and had been decreasing intake. Patient has recently been admitted to [facility] possibility of EtOH withdrawal causing altered mental status. - PT evaluated - Appreciate Psych evaluation. They did not feel that the patient met criteria for involuntary psychiatric admission. It was felt that the pt may benefit from comprehensive inpatient/outpatient alcohol rehabilitation program. - Supportive care - DC order placed on 12/27/17- case management working on safe DC - CM has enlisted help from Adult Protective Services. No progress has been made to obtain an accepting facility. - Psychiatry re-evaluated 01/08/18- patient does not meet inpatient psych admission criteria - Seroquel to 75mg qPM added on 01/12/18 - Awaiting safe discharge. - Re-consulted psych for competency evaluation, and they declared pt not competent to make her own medical decisions. - [place] [employer] assisting with Medicaid disability application and discharge planning. - Discussed with CM and RN. 02/05/28 - No clinical changes - continue current treatment plan - awaiting safe discharge plan. (2) Anemia Code(s): D64.9 - Anemia, unspecified Status: Chronic Plan: - On admission hgb 7.8, Hct 23.7, MCV 105.1 - 12/27/2017 hemoglobin improved 8.4 - 01/07/18 hemoglobin 10.3, Hct 31.2, MCV 101.9 - patient does have hx of ETOH abuse - B12 359 and folic acid 12.2 - Iron 48, total iron-binding capacity 183, percent saturation 26.2 - GI was consulted for possible EGD but unable to get consent so was recommended for outpt followup (3) Hypomagnesemia Code(s): E83.42 - Hypomagnesemia Status: Acute Plan: - magnesium 1.3 on admission - Pt was given replacement (4) Tachyarrhythmia Code(s): R00.0 - Tachycardia, unspecified Status: Chronic Plan: - Pt with history of tachyarrhythmia - s/p EPS with ablation of AV re-entry node tachycardia Dr. Vazquez 2016 - Pt started on Metoprolol 25mg po BID with initial improvement in HR - increased metoprolol to 50mg BID on 01/11/18, HR stable (5) ETOH abuse Code(s): F10.10 - Alcohol abuse, uncomplicated Status: Chronic Plan: - [facility] protocol - thiamine and folic acid - seizure precautions (6) COPD (chronic obstructive pulmonary disease) Code(s): J44.9 - Chronic obstructive pulmonary disease, unspecified Status: Chronic Plan: - Does not appear to be in acute exacerbation - duonebs if needed (7) HTN (hypertension) Code(s): I10 - Essential (primary) hypertension Status: Chronic Plan: - Blood pressure was elevated during admission - Pt was initially started on amlodipine 5 mg p.o. daily but with tachyarrhythmia the Norvasc was stopped and Metoprolol added - BP has been stable. (2) Anemia Qualifiers: Anemia type: unspecified type Qualified Code(s): D64.9 - Anemia, unspecified
[2018-02-04] MEDS: QUEtiapine 25 MG Tablet PO SCH (21:38)
[2018-02-05] MEDS: Senna/Docusate Sodium 8.6/50 MG Tablet PO SCH ×2 (12:48→22:09)
[2018-02-05] MEDS: Metoprolol Tartrate 50 MG Tablet PO SCH ×2 (12:49→22:09)
[2018-02-05] MEDS: LORazepam 0.5 MG Tablet PO PRN (12:50)
--- NOTE | 2018-02-05 16:09 | P.PNIM ---
Subjective Interval history: No new complaints No new progress on discharge has been made Physical Exam Vital signs: Vital Signs 02/04/18 20:00 02/05/18 08:00 Temperature 97.9 F 97.8 F Pulse Rate 80 81 Respiratory Rate 16 20 Blood Pressure 109/67 118/77 Pulse Oximetry 98 95 Intake & Output 02/04/18 02/05/18 02/05/18 18:59 06:59 18:59 Intake Total 720 / 720 480 / 480 Balance 720 / 720 480 / 480 Weight 53 kg Intake: Oral 720 / 720 480 / 480 Other: # Voids 3 1 # Bowel Movements 0 Narrative: General: GENERAL: NAD, pleasantly confused NECK: Supple, trachea midline. CARDIO: Regular rate and rhythm without murmurs, gallops, or rubs. RESP: Breath sounds equal bilaterally. No accessory muscle use. ABD: Abdomen soft, non-tender, nondistended. EXT: No cyanosis, or edema. Results - Labs CBC & Chem 7: 01/07/18 08:55 12/25/17 22:10 Assessment and Plan - Assessment (1) Altered mental status Code(s): R41.82 - Altered mental status, unspecified Status: Acute Plan: - The patient is a 52 year old female with past medical history which includes Abnormal LFTs, EtOH abuse, chronic back pain, COPD, hypertension, SVT. Patient was brought to [facility] on 12/13 by friend for confusion x 2 weeks weakness and flu like symptoms. Patient was admitted to [facility] from 12/13/17 to 12/18/17 treated for metabolic encephalopathy related to UTI and then DC'd to [facility]. Patient was seen in the emergency department related to altered mentation and anemia . The patient at that time was had hemoglobin of 9.3 and her rectal examination was negative for blood. She was deemed safe for discharge with follow-up as an outpatient. Patient again presented to the ER 12/25/17 for increased altered mentation since falling at her senior care at approximately 8 :15 AM 12/25. The patient has a baseline history of altered mentation that is thought to be related to her history of alcohol abuse and Wernicke's encephalopathy. - CT head negative - CXR reviewed the lungs are clear - UA does not indicate UTI, no culture indicated - Patient has ETOH abuse - [facility] protocol - Cont. folic acid and thiamine - Ammonia level 15 - TSH 3.710 - RPR nonreactive - EtOH use and review of prior records patient had been drinking 1.5-2 bottles of wine a day and had been decreasing intake. Patient has recently been admitted to [facility] possibility of EtOH withdrawal causing altered mental status. - PT evaluated - Appreciate Psych evaluation. They did not feel that the patient met criteria for involuntary psychiatric admission. It was felt that the pt may benefit from comprehensive inpatient/outpatient alcohol rehabilitation program. - Supportive care - DC order placed on 12/27/17- case management working on safe DC - CM has enlisted help from Adult Protective Services. No progress has been made to obtain an accepting facility. - Psychiatry re-evaluated 01/08/18- patient does not meet inpatient psych admission criteria - Seroquel to 75mg qPM added on 01/12/18 - Awaiting safe discharge. - Re-consulted psych for competency evaluation, and they declared pt not competent to make her own medical decisions. - [place] [employer] assisting with Medicaid disability application and discharge planning. - Discussed with CM and RN. (2) Anemia Code(s): D64.9 - Anemia, unspecified Status: Chronic Plan: - On admission hgb 7.8, Hct 23.7, MCV 105.1 - 12/27/2017 hemoglobin improved 8.4 - 01/07/18 hemoglobin 10.3, Hct 31.2, MCV 101.9 - patient does have hx of ETOH abuse - B12 359 and folic acid 12.2 - Iron 48, total iron-binding capacity 183, percent saturation 26.2 - GI was consulted for possible EGD but unable to get consent so was recommended for outpt followup (3) Hypomagnesemia Code(s): E83.42 - Hypomagnesemia Status: Acute Plan: - magnesium 1.3 on admission - Pt was given replacement (4) Tachyarrhythmia Code(s): R00.0 - Tachycardia, unspecified Status: Chronic Plan: - Pt with history of tachyarrhythmia - s/p EPS with ablation of AV re-entry node tachycardia Dr. Vazquez 2016 - Pt started on Metoprolol 25mg po BID with initial improvement in HR - increased metoprolol to 50mg BID on 01/11/18, HR stable (5) ETOH abuse Code(s): F10.10 - Alcohol abuse, uncomplicated Status: Chronic Plan: - [facility] protocol - thiamine and folic acid - seizure precautions (6) COPD (chronic obstructive pulmonary disease) Code(s): J44.9 - Chronic obstructive pulmonary disease, unspecified Status: Chronic Plan: - Does not appear to be in acute exacerbation - duonebs if needed (7) HTN (hypertension) Code(s): I10 - Essential (primary) hypertension Status: Chronic Plan: - Blood pressure was elevated during admission - Pt was initially started on amlodipine 5 mg p.o. daily but with tachyarrhythmia the Norvasc was stopped and Metoprolol added - BP has been stable. - Plan Patient examined. Assessment and plan formulated with Deirdre Olmstead PA-C. I agree with the above. (2) Anemia Qualifiers: Anemia type: unspecified type Qualified Code(s): D64.9 - Anemia, unspecified
[2018-02-05] MEDS: QUEtiapine 25 MG Tablet PO SCH (22:09)
[2018-02-06] MEDS: Metoprolol Tartrate 50 MG Tablet PO SCH ×2 (09:08→21:04)
[2018-02-06] MEDS: Senna/Docusate Sodium 8.6/50 MG Tablet PO SCH ×2 (09:09→21:04)
--- NOTE | 2018-02-06 13:05 | P.PNIM ---
Subjective Interval history: Patient sitting up in room eating lunch offers no medical complaints at this time no new concerns from nursing awaiting safe DC plan Physical Exam Vital signs: Vital Signs 02/05/18 22:05 02/06/18 08:00 Temperature 98.1 F 97.3 F L Pulse Rate 77 71 Respiratory Rate 14 20 Blood Pressure 110/70 115/64 Pulse Oximetry 97 98 Narrative: GENERAL: NAD, pleasantly confused NECK: Supple, trachea midline. CARDIO: Regular rate and rhythm RESP: Breath sounds equal bilaterally. No accessory muscle use. ABD: Abdomen soft, non-tender, nondistended. EXT: No cyanosis, or edema. Results - Labs CBC & Chem 7: 01/07/18 08:55 12/25/17 22:10 Assessment and Plan - Assessment (1) Altered mental status Code(s): R41.82 - Altered mental status, unspecified Status: Acute Plan: - The patient is a 52 year old female with past medical history which includes Abnormal LFTs, EtOH abuse, chronic back pain, COPD, hypertension, SVT. Patient was brought to [facility] on 12/13 by friend for confusion x 2 weeks weakness and flu like symptoms. Patient was admitted to [facility] from 12/13/17 to 12/18/17 treated for metabolic encephalopathy related to UTI and then DC'd to [facility]. Patient was seen in the emergency department related to altered mentation and anemia . The patient at that time was had hemoglobin of 9.3 and her rectal examination was negative for blood. She was deemed safe for discharge with follow-up as an outpatient. Patient again presented to the ER 12/25/17 for increased altered mentation since falling at her senior care at approximately 8 :15 AM 12/25. The patient has a baseline history of altered mentation that is thought to be related to her history of alcohol abuse and Wernicke's encephalopathy. - CT head negative - CXR reviewed the lungs are clear - UA does not indicate UTI, no culture indicated - Patient has ETOH abuse - [facility] protocol - Cont. folic acid and thiamine - Ammonia level 15 - TSH 3.710 - RPR nonreactive - EtOH use and review of prior records patient had been drinking 1.5-2 bottles of wine a day and had been decreasing intake. Patient has recently been admitted to [facility] possibility of EtOH withdrawal causing altered mental status. - PT evaluated - Appreciate Psych evaluation. They did not feel that the patient met criteria for involuntary psychiatric admission. It was felt that the pt may benefit from comprehensive inpatient/outpatient alcohol rehabilitation program. - Supportive care - DC order placed on 12/27/17- case management working on safe DC - CM has enlisted help from Adult Protective Services. No progress has been made to obtain an accepting facility. - Psychiatry re-evaluated 01/08/18- patient does not meet inpatient psych admission criteria - Seroquel to 75mg qPM added on 01/12/18 - Awaiting safe discharge. - Re-consulted psych for competency evaluation, and they declared pt not competent to make her own medical decisions. - [place] [employer] assisting with Medicaid disability application and discharge planning. - Discussed with CM and RN. (2) Anemia Code(s): D64.9 - Anemia, unspecified Status: Chronic Plan: - On admission hgb 7.8, Hct 23.7, MCV 105.1 - 12/27/2017 hemoglobin improved 8.4 - 01/07/18 hemoglobin 10.3, Hct 31.2, MCV 101.9 - patient does have hx of ETOH abuse - B12 359 and folic acid 12.2 - Iron 48, total iron-binding capacity 183, percent saturation 26.2 - GI was consulted for possible EGD but unable to get consent so was recommended for outpt followup (3) Hypomagnesemia Code(s): E83.42 - Hypomagnesemia Status: Acute Plan: - magnesium 1.3 on admission - Pt was given replacement (4) Tachyarrhythmia Code(s): R00.0 - Tachycardia, unspecified Status: Chronic Plan: - Pt with history of tachyarrhythmia - s/p EPS with ablation of AV re-entry node tachycardia Dr. Vazquez 2016 - Pt started on Metoprolol 25mg po BID with initial improvement in HR - increased metoprolol to 50mg BID on 01/11/18, HR stable (5) ETOH abuse Code(s): F10.10 - Alcohol abuse, uncomplicated Status: Chronic Plan: - [facility] protocol - thiamine and folic acid - seizure precautions (6) COPD (chronic obstructive pulmonary disease) Code(s): J44.9 - Chronic obstructive pulmonary disease, unspecified Status: Chronic Plan: - Does not appear to be in acute exacerbation - duonebs if needed (7) HTN (hypertension) Code(s): I10 - Essential (primary) hypertension Status: Chronic Plan: - Blood pressure was elevated during admission - Pt was initially started on amlodipine 5 mg p.o. daily but with tachyarrhythmia the Norvasc was stopped and Metoprolol added - BP has been stable. - Attending Attestation Patient examined. Assessment and plan formulated with Betsy BATEMAN I agree with the above. (2) Anemia Qualifiers: Anemia type: unspecified type Qualified Code(s): D64.9 - Anemia, unspecified
[2018-02-06] MEDS: QUEtiapine 25 MG Tablet PO SCH (21:04)
[2018-02-07] MEDS: Metoprolol Tartrate 50 MG Tablet PO SCH ×2 (08:43→21:01)
[2018-02-07] MEDS: Senna/Docusate Sodium 8.6/50 MG Tablet PO SCH ×2 (08:44→21:01)
--- NOTE | 2018-02-07 17:31 | P.PNIM ---
Subjective Interval history: Patient continues to be pleasantly confused, at mental baseline Offers no new medical complaints Physical Exam Vital signs: Vital Signs 02/06/18 20:00 02/07/18 08:00 02/07/18 15:24 Temperature 98.5 F 98.0 F Pulse Rate 90 77 Respiratory Rate 17 16 Blood Pressure 114/74 105/60 Pulse Oximetry 98 95 95 Intake & Output 02/06/18 02/07/18 02/07/18 18:59 06:59 18:59 Intake Total 480 / 480 Balance 480 / 480 Intake: Oral 480 / 480 Other: # Voids 3 Narrative: GENERAL: NAD, pleasantly confused NECK: Supple, trachea midline. CARDIO: Regular rate and rhythm RESP: Breath sounds equal bilaterally. No accessory muscle use. ABD: Abdomen soft, non-tender, nondistended. EXT: No cyanosis, or edema. Results - Labs CBC & Chem 7: 01/07/18 08:55 12/25/17 22:10 Assessment and Plan - Assessment (1) Altered mental status Code(s): R41.82 - Altered mental status, unspecified Status: Acute Plan: (1) Altered mental status - The patient is a 52 year old female with past medical history which includes Abnormal LFTs, EtOH abuse, chronic back pain, COPD, hypertension, SVT. Patient was brought to [facility] on 12/13 by friend for confusion x 2 weeks weakness and flu like symptoms. Patient was admitted to [facility] from 12/13/17 to 12/18/17 treated for metabolic encephalopathy related to UTI and then DC'd to [facility]. Patient was seen in the emergency department related to altered mentation and anemia . The patient at that time was had hemoglobin of 9.3 and her rectal examination was negative for blood. She was deemed safe for discharge with follow-up as an outpatient. Patient again presented to the ER 12/25/17 for increased altered mentation since falling at her custodial at approximately 8 :15 AM 12/25. The patient has a baseline history of altered mentation that is thought to be related to her history of alcohol abuse and Wernicke's encephalopathy. - CT head negative - CXR reviewed the lungs are clear - UA does not indicate UTI, no culture indicated - Patient has ETOH abuse - [facility] protocol - Cont. folic acid and thiamine - Ammonia level 15 - TSH 3.710 - RPR nonreactive - EtOH use and review of prior records patient had been drinking 1.5-2 bottles of wine a day and had been decreasing intake. Patient has recently been admitted to [facility] possibility of EtOH withdrawal causing altered mental status. - PT evaluated - Appreciate Psych evaluation. They did not feel that the patient met criteria for involuntary psychiatric admission. It was felt that the pt may benefit from comprehensive inpatient/outpatient alcohol rehabilitation program. - Supportive care - DC order placed on 12/27/17- case management working on safe DC - CM has enlisted help from Adult Protective Services. No progress has been made to obtain an accepting facility. - Psychiatry re-evaluated 01/08/18- patient does not meet inpatient psych admission criteria - Seroquel to 75mg qPM added on 01/12/18 - Awaiting safe discharge. - Re-consulted psych for competency evaluation, and they declared pt not competent to make her own medical decisions. - [place] [employer] assisting with Medicaid disability application and discharge planning. - Discussed with RN. (2) Anemia - On admission hgb 7.8, Hct 23.7, MCV 105.1 - 12/27/2017 hemoglobin improved 8.4 - 01/07/18 hemoglobin 10.3, Hct 31.2, MCV 101.9 - patient does have hx of ETOH abuse - B12 359 and folic acid 12.2 - Iron 48, total iron-binding capacity 183, percent saturation 26.2 - GI was consulted for possible EGD but unable to get consent so was recommended for outpt followup (3) Hypomagnesemia - magnesium 1.3 on admission - Pt was given replacement (4) Tachyarrhythmia - Pt with history of tachyarrhythmia - s/p EPS with ablation of AV re-entry node tachycardia Dr. Vazquez 2016 - Pt started on Metoprolol 25mg po BID with initial improvement in HR - increased metoprolol to 50mg BID on 01/11/18, HR stable (5) ETOH abuse - [facility] protocol - thiamine and folic acid - seizure precautions (6) COPD (chronic obstructive pulmonary disease) - Does not appear to be in acute exacerbation - duonebs if needed (7) HTN (hypertension) - Blood pressure was elevated during admission - Pt was initially started on amlodipine 5 mg p.o. daily but with tachyarrhythmia the Norvasc was stopped and Metoprolol added - BP has been stable. (2) Anemia Code(s): D64.9 - Anemia, unspecified Status: Chronic (3) Hypomagnesemia Code(s): E83.42 - Hypomagnesemia Status: Acute (4) Tachyarrhythmia Code(s): R00.0 - Tachycardia, unspecified Status: Chronic (5) ETOH abuse Code(s): F10.10 - Alcohol abuse, uncomplicated Status: Chronic (6) COPD (chronic obstructive pulmonary disease) Code(s): J44.9 - Chronic obstructive pulmonary disease, unspecified Status: Chronic (7) HTN (hypertension) Code(s): I10 - Essential (primary) hypertension Status: Chronic - Plan Patient examined. Assessment and plan formulated with Betsy Newman PA-C. I agree with the above. (2) Anemia Qualifiers: Anemia type: unspecified type Qualified Code(s): D64.9 - Anemia, unspecified
[2018-02-07] MEDS: QUEtiapine 25 MG Tablet PO SCH (21:01)
[2018-02-08] MEDS: Senna/Docusate Sodium 8.6/50 MG Tablet PO SCH ×2 (09:56→20:48)
[2018-02-08] MEDS: Metoprolol Tartrate 50 MG Tablet PO SCH ×2 (09:56→20:48)
--- NOTE | 2018-02-08 14:13 | P.PNIM ---
Subjective Interval history: Patient at mental baseline, pleasantly confused discussed with RN no new concerns awaiting safe DC arrangement Physical Exam Vital signs: Vital Signs 02/07/18 15:24 02/07/18 20:00 02/08/18 08:00 Temperature 97.8 F 97.9 F Pulse Rate 80 92 H Respiratory Rate 16 18 Blood Pressure 117/76 97/67 L Pulse Oximetry 95 99 97 Intake & Output 02/07/18 02/08/18 02/08/18 18:59 06:59 18:59 Intake Total 720 / 720 0 / 0 Output Total 1200 / 1200 Balance 720 / 720 -1200 / -1200 Intake: Oral 720 / 720 0 / 0 Output: Urine 1200 / 1200 Stool 0 / 0 Other: # Voids 3 3 Date of Last Bowel Movement 02/08/18 02/08/18 # Bowel Movements 1 Narrative: GENERAL: NAD, pleasantly confused NECK: Supple, trachea midline. CARDIO: Regular rate and rhythm RESP: Breath sounds equal bilaterally. No accessory muscle use. ABD: Abdomen soft, non-tender, nondistended. EXT: No cyanosis, or edema. Results - Labs CBC & Chem 7: 01/07/18 08:55 12/25/17 22:10 Assessment and Plan - Assessment (1) Altered mental status Code(s): R41.82 - Altered mental status, unspecified Status: Acute Plan: (1) Altered mental status - The patient is a 52 year old female with past medical history which includes Abnormal LFTs, EtOH abuse, chronic back pain, COPD, hypertension, SVT. Patient was brought to [facility] on 12/13 by friend for confusion x 2 weeks weakness and flu like symptoms. Patient was admitted to [facility] from 12/13/17 to 12/18/17 treated for metabolic encephalopathy related to UTI and then DC'd to [facility]. Patient was seen in the emergency department related to altered mentation and anemia . The patient at that time was had hemoglobin of 9.3 and her rectal examination was negative for blood. She was deemed safe for discharge with follow-up as an outpatient. Patient again presented to the ER 12/25/17 for increased altered mentation since falling at her correction at approximately 8 :15 AM 12/25. The patient has a baseline history of altered mentation that is thought to be related to her history of alcohol abuse and Wernicke's encephalopathy. - CT head negative - CXR reviewed the lungs are clear - UA does not indicate UTI, no culture indicated - Patient has ETOH abuse - [facility] protocol - Cont. folic acid and thiamine - Ammonia level 15 - TSH 3.710 - RPR nonreactive - EtOH use and review of prior records patient had been drinking 1.5-2 bottles of wine a day and had been decreasing intake. Patient has recently been admitted to [facility] possibility of EtOH withdrawal causing altered mental status. - PT evaluated - Appreciate Psych evaluation. They did not feel that the patient met criteria for involuntary psychiatric admission. It was felt that the pt may benefit from comprehensive inpatient/outpatient alcohol rehabilitation program. - Supportive care - DC order placed on 12/27/17- case management working on safe DC - CM has enlisted help from Adult Protective Services. No progress has been made to obtain an accepting facility. - Psychiatry re-evaluated 01/08/18- patient does not meet inpatient psych admission criteria - Seroquel to 75mg qPM added on 01/12/18 - Awaiting safe discharge. - Re-consulted psych for competency evaluation, and they declared pt not competent to make her own medical decisions. - [place] [employer] assisting with Medicaid disability application and discharge planning. - Discussed with RN. - awaiting safe DC arrangements (2) Anemia - On admission hgb 7.8, Hct 23.7, MCV 105.1 - 12/27/2017 hemoglobin improved 8.4 - 01/07/18 hemoglobin 10.3, Hct 31.2, MCV 101.9 - patient does have hx of ETOH abuse - B12 359 and folic acid 12.2 - Iron 48, total iron-binding capacity 183, percent saturation 26.2 - GI was consulted for possible EGD but unable to get consent so was recommended for outpt followup (3) Hypomagnesemia - magnesium 1.3 on admission - Pt was given replacement (4) Tachyarrhythmia - Pt with history of tachyarrhythmia - s/p EPS with ablation of AV re-entry node tachycardia Dr. Vazquez 2016 - Pt started on Metoprolol 25mg po BID with initial improvement in HR - increased metoprolol to 50mg BID on 01/11/18, HR stable (5) ETOH abuse - [facility] protocol - thiamine and folic acid - seizure precautions (6) COPD (chronic obstructive pulmonary disease) - Does not appear to be in acute exacerbation - duonebs if needed (7) HTN (hypertension) - Blood pressure was elevated during admission - Pt was initially started on amlodipine 5 mg p.o. daily but with tachyarrhythmia the Norvasc was stopped and Metoprolol added - BP has been stable. (2) Anemia Code(s): D64.9 - Anemia, unspecified Status: Chronic (3) Hypomagnesemia Code(s): E83.42 - Hypomagnesemia Status: Acute (4) Tachyarrhythmia Code(s): R00.0 - Tachycardia, unspecified Status: Chronic (5) ETOH abuse Code(s): F10.10 - Alcohol abuse, uncomplicated Status: Chronic (6) COPD (chronic obstructive pulmonary disease) Code(s): J44.9 - Chronic obstructive pulmonary disease, unspecified Status: Chronic (7) HTN (hypertension) Code(s): I10 - Essential (primary) hypertension Status: Chronic - Plan Patient examined. Assessment and plan formulated with Betsy Newman PA-C. I agree with the above. (2) Anemia Qualifiers: Anemia type: unspecified type Qualified Code(s): D64.9 - Anemia, unspecified
[2018-02-08] MEDS: QUEtiapine 25 MG Tablet PO SCH (20:48)
[2018-02-09] MEDS: Senna/Docusate Sodium 8.6/50 MG Tablet PO SCH ×2 (09:52→21:08)
[2018-02-09] MEDS: Metoprolol Tartrate 50 MG Tablet PO SCH ×2 (09:52→21:08)
--- NOTE | 2018-02-09 12:38 | P.PNIM ---
Subjective Interval history: Patient remains confused offers no medical complaints appear comfortable discussed with RN no concerns Physical Exam Vital signs: Vital Signs 02/09/18 08:00 Temperature 98.0 F Pulse Rate 100 H Respiratory Rate 20 Blood Pressure 96/67 L Pulse Oximetry 97 Intake & Output 02/08/18 02/09/18 02/09/18 18:59 06:59 18:59 Intake Total 800 / 800 Output Total 1200 / 1200 Balance -400 / -400 Weight 52.8 kg Intake: Oral 800 / 800 Output: Urine 1200 / 1200 Stool 0 / 0 Other: # Voids 3 Date of Last Bowel Movement 02/07/18 # Bowel Movements 0 Narrative: GENERAL: NAD, pleasantly confused NECK: Supple, trachea midline. CARDIO: Regular rate and rhythm RESP: Breath sounds equal bilaterally. No accessory muscle use. ABD: Abdomen soft, non-tender, nondistended. EXT: No cyanosis, or edema. Results - Labs CBC & Chem 7: 01/07/18 08:55 12/25/17 22:10 Assessment and Plan - Assessment (1) Altered mental status Code(s): R41.82 - Altered mental status, unspecified Status: Acute Plan: (1) Altered mental status - The patient is a 52 year old female with past medical history which includes Abnormal LFTs, EtOH abuse, chronic back pain, COPD, hypertension, SVT. Patient was brought to [facility] on 12/13 by friend for confusion x 2 weeks weakness and flu like symptoms. Patient was admitted to [facility] from 12/13/17 to 12/18/17 treated for metabolic encephalopathy related to UTI and then DC'd to [facility]. Patient was seen in the emergency department related to altered mentation and anemia . The patient at that time was had hemoglobin of 9.3 and her rectal examination was negative for blood. She was deemed safe for discharge with follow-up as an outpatient. Patient again presented to the ER 12/25/17 for increased altered mentation since falling at her snf at approximately 8 :15 AM 12/25. The patient has a baseline history of altered mentation that is thought to be related to her history of alcohol abuse and Wernicke's encephalopathy. - CT head negative - CXR reviewed the lungs are clear - UA does not indicate UTI, no culture indicated - Patient has ETOH abuse - [facility] protocol - Cont. folic acid and thiamine - Ammonia level 15 - TSH 3.710 - RPR nonreactive - EtOH use and review of prior records patient had been drinking 1.5-2 bottles of wine a day and had been decreasing intake. Patient has recently been admitted to [facility] possibility of EtOH withdrawal causing altered mental status. - PT evaluated - Appreciate Psych evaluation. They did not feel that the patient met criteria for involuntary psychiatric admission. It was felt that the pt may benefit from comprehensive inpatient/outpatient alcohol rehabilitation program. - Supportive care - DC order placed on 12/27/17- case management working on safe DC - CM has enlisted help from Adult Protective Services. No progress has been made to obtain an accepting facility. - Psychiatry re-evaluated 01/08/18- patient does not meet inpatient psych admission criteria - Seroquel to 75mg qPM added on 01/12/18 - Awaiting safe discharge. - Re-consulted psych for competency evaluation, and they declared pt not competent to make her own medical decisions. - [place] [employer] assisting with Medicaid disability application and discharge planning. - Discussed with RN. - awaiting safe DC arrangements - 02/09/18 no changes (2) Anemia - On admission hgb 7.8, Hct 23.7, MCV 105.1 - 12/27/2017 hemoglobin improved 8.4 - 01/07/18 hemoglobin 10.3, Hct 31.2, MCV 101.9 - patient does have hx of ETOH abuse - B12 359 and folic acid 12.2 - Iron 48, total iron-binding capacity 183, percent saturation 26.2 - GI was consulted for possible EGD but unable to get consent so was recommended for outpt followup (3) Hypomagnesemia - magnesium 1.3 on admission - Pt was given replacement (4) Tachyarrhythmia - Pt with history of tachyarrhythmia - s/p EPS with ablation of AV re-entry node tachycardia Dr. Vazquez 2016 - Pt started on Metoprolol 25mg po BID with initial improvement in HR - increased metoprolol to 50mg BID on 01/11/18, HR stable (5) ETOH abuse - [facility] protocol - thiamine and folic acid - seizure precautions (6) COPD (chronic obstructive pulmonary disease) - Does not appear to be in acute exacerbation - duonebs if needed (7) HTN (hypertension) - Blood pressure was elevated during admission - Pt was initially started on amlodipine 5 mg p.o. daily but with tachyarrhythmia the Norvasc was stopped and Metoprolol added - BP has been stable. (2) Anemia Code(s): D64.9 - Anemia, unspecified Status: Chronic (3) Hypomagnesemia Code(s): E83.42 - Hypomagnesemia Status: Acute (4) Tachyarrhythmia Code(s): R00.0 - Tachycardia, unspecified Status: Chronic (5) ETOH abuse Code(s): F10.10 - Alcohol abuse, uncomplicated Status: Chronic (6) COPD (chronic obstructive pulmonary disease) Code(s): J44.9 - Chronic obstructive pulmonary disease, unspecified Status: Chronic (7) HTN (hypertension) Code(s): I10 - Essential (primary) hypertension Status: Chronic - Plan Patient examined. Assessment and plan formulated with Betsy Newman PA-C. I agree with the above. (2) Anemia Qualifiers: Anemia type: unspecified type Qualified Code(s): D64.9 - Anemia, unspecified
[2018-02-09] MEDS: QUEtiapine 25 MG Tablet PO SCH (21:09)
[2018-02-10] MEDS: Metoprolol Tartrate 50 MG Tablet PO SCH ×2 (10:16→22:48)
[2018-02-10] MEDS: Senna/Docusate Sodium 8.6/50 MG Tablet PO SCH ×2 (10:16→22:48)
--- NOTE | 2018-02-10 12:28 | P.PNIM ---
Subjective Interval history: Follow up: Progression of alcoholic dementia awaiting safe DC Patient remains pleasantly confused offers no medical concerns/complaints Nursing staff reports that patient has been having agitation at night Physical Exam Vital signs: Vital Signs 02/09/18 20:00 02/10/18 08:00 Temperature 97.9 F 97.8 F Pulse Rate 92 H 96 H Respiratory Rate 18 17 Blood Pressure 110/65 127/83 Pulse Oximetry 96 98 Intake & Output 02/09/18 02/10/18 02/10/18 18:59 06:59 18:59 Intake Total 480 / 480 Balance 480 / 480 Weight 49 kg Intake: Oral 480 / 480 Other: # Voids 3 Date of Last Bowel Movement 02/07/18 Narrative: GENERAL: NAD, pleasantly confused oriented to self only NECK: Supple, trachea midline. CARDIO: Regular rate and rhythm RESP: Breath sounds equal bilaterally. No accessory muscle use. ABD: Abdomen soft, non-tender, nondistended. EXT: No cyanosis, or edema. Results - Labs CBC & Chem 7: 01/07/18 08:55 12/25/17 22:10 Assessment and Plan - Assessment (1) Altered mental status Code(s): R41.82 - Altered mental status, unspecified Status: Acute Plan: (1) Altered mental status - The patient is a 52 year old female with past medical history which includes Abnormal LFTs, EtOH abuse, chronic back pain, COPD, hypertension, SVT. Patient was brought to [facility] on 12/13 by friend for confusion x 2 weeks weakness and flu like symptoms. Patient was admitted to [facility] from 12/13/17 to 12/18/17 treated for metabolic encephalopathy related to UTI and then DC'd to [facility]. Patient was seen in the emergency department related to altered mentation and anemia . The patient at that time was had hemoglobin of 9.3 and her rectal examination was negative for blood. She was deemed safe for discharge with follow-up as an outpatient. Patient again presented to the ER 12/25/17 for increased altered mentation since falling at her long term at approximately 8 :15 AM 12/25. The patient has a baseline history of altered mentation that is thought to be related to her history of alcohol abuse and Wernicke's encephalopathy. - CT head negative - CXR reviewed the lungs are clear - UA does not indicate UTI, no culture indicated - Patient has ETOH abuse - [facility] protocol - Cont. folic acid and thiamine - Ammonia level 15 - TSH 3.710 - RPR nonreactive - EtOH use and review of prior records patient had been drinking 1.5-2 bottles of wine a day and had been decreasing intake. Patient has recently been admitted to [facility] possibility of EtOH withdrawal causing altered mental status. - PT evaluated - Appreciate Psych evaluation. They did not feel that the patient met criteria for involuntary psychiatric admission. It was felt that the pt may benefit from comprehensive inpatient/outpatient alcohol rehabilitation program. - Supportive care - DC order placed on 12/27/17- case management working on safe DC - CM has enlisted help from Adult Protective Services. No progress has been made to obtain an accepting facility. - Psychiatry re-evaluated 01/08/18- patient does not meet inpatient psych admission criteria - Awaiting safe discharge. - Re-consulted psych for competency evaluation, and they declared pt not competent to make her own medical decisions. - [place] [employer] assisting with Medicaid disability application and discharge planning. - Discussed with RN. - awaiting safe DC arrangements - 02/10/18 increase Seroquel to 100 mg PO QHS (2) Anemia - On admission hgb 7.8, Hct 23.7, MCV 105.1 - 12/27/2017 hemoglobin improved 8.4 - 01/07/18 hemoglobin 10.3, Hct 31.2, MCV 101.9 - patient does have hx of ETOH abuse - B12 359 and folic acid 12.2 - Iron 48, total iron-binding capacity 183, percent saturation 26.2 - GI was consulted for possible EGD but unable to get consent so was recommended for outpt followup (3) Hypomagnesemia - magnesium 1.3 on admission - Pt was given replacement (4) Tachyarrhythmia - Pt with history of tachyarrhythmia - s/p EPS with ablation of AV re-entry node tachycardia Dr. Vazquez 2016 - Pt started on Metoprolol 25mg po BID with initial improvement in HR - increased metoprolol to 50mg BID on 01/11/18, HR stable (5) ETOH abuse - [facility] protocol - thiamine and folic acid - seizure precautions (6) COPD (chronic obstructive pulmonary disease) - Does not appear to be in acute exacerbation - duonebs if needed (7) HTN (hypertension) - Blood pressure was elevated during admission - Pt was initially started on amlodipine 5 mg p.o. daily but with tachyarrhythmia the Norvasc was stopped and Metoprolol added - BP has been stable. (2) Anemia Code(s): D64.9 - Anemia, unspecified Status: Chronic (3) Hypomagnesemia Code(s): E83.42 - Hypomagnesemia Status: Acute (4) Tachyarrhythmia Code(s): R00.0 - Tachycardia, unspecified Status: Chronic (5) ETOH abuse Code(s): F10.10 - Alcohol abuse, uncomplicated Status: Chronic (6) COPD (chronic obstructive pulmonary disease) Code(s): J44.9 - Chronic obstructive pulmonary disease, unspecified Status: Chronic (7) HTN (hypertension) Code(s): I10 - Essential (primary) hypertension Status: Chronic - Plan Patient examined. Assessment and plan formulated with Betsy Newman PA-C. I agree with the above. (2) Anemia Qualifiers: Anemia type: unspecified type Qualified Code(s): D64.9 - Anemia, unspecified
[2018-02-10] MEDS: QUEtiapine 25 MG Tablet PO SCH (21:42)
--- NOTE | 2018-02-11 08:23 | P.PNIM ---
Subjective Interval history: no new events Physical Exam Vital signs: Vital Signs 02/10/18 20:00 Temperature 97.8 F Pulse Rate 86 Respiratory Rate 19 Blood Pressure 95/61 L Pulse Oximetry 98 Intake & Output 02/10/18 02/11/18 02/11/18 18:59 06:59 18:59 Intake Total 380 / 380 480 / 480 Output Total 400 / 400 Balance -20 / -20 480 / 480 Weight 50.2 kg Intake: Oral 380 / 380 480 / 480 Output: Urine 400 / 400 Other: # Voids 3 Date of Last Bowel Movement 02/07/18 # Bowel Movements 0 heent neg heart reg lung cta abd s/nt ext no edema Results - Labs CBC & Chem 7: 01/07/18 08:55 12/25/17 22:10 Assessment and Plan - Assessment (1) Altered mental status Code(s): R41.82 - Altered mental status, unspecified Status: Acute Plan: (1) Altered mental status - The patient is a 52 year old female with past medical history which includes Abnormal LFTs, EtOH abuse, chronic back pain, COPD, hypertension, SVT. Patient was brought to [facility] on 12/13 by friend for confusion x 2 weeks weakness and flu like symptoms. Patient was admitted to [facility] from 12/13/17 to 12/18/17 treated for metabolic encephalopathy related to UTI and then DC'd to [facility]. Patient was seen in the emergency department related to altered mentation and anemia . The patient at that time was had hemoglobin of 9.3 and her rectal examination was negative for blood. She was deemed safe for discharge with follow-up as an outpatient. Patient again presented to the ER 12/25/17 for increased altered mentation since falling at her group home at approximately 8 :15 AM 12/25. The patient has a baseline history of altered mentation that is thought to be related to her history of alcohol abuse and Wernicke's encephalopathy. - CT head negative - CXR reviewed the lungs are clear - UA does not indicate UTI, no culture indicated - Patient has ETOH abuse - [facility] protocol - Cont. folic acid and thiamine - Ammonia level 15 - TSH 3.710 - RPR nonreactive - EtOH use and review of prior records patient had been drinking 1.5-2 bottles of wine a day and had been decreasing intake. Patient has recently been admitted to [facility] possibility of EtOH withdrawal causing altered mental status. - PT evaluated - Appreciate Psych evaluation. They did not feel that the patient met criteria for involuntary psychiatric admission. It was felt that the pt may benefit from comprehensive inpatient/outpatient alcohol rehabilitation program. - Supportive care - DC order placed on 12/27/17- case management working on safe DC - CM has enlisted help from Adult Protective Services. No progress has been made to obtain an accepting facility. - Psychiatry re-evaluated 01/08/18- patient does not meet inpatient psych admission criteria - Awaiting safe discharge. - Re-consulted psych for competency evaluation, and they declared pt not competent to make her own medical decisions. - [place] [employer] assisting with Medicaid disability application and discharge planning. - Discussed with RN. - awaiting safe DC arrangements - 02/10/18 increase Seroquel to 100 mg PO QHS no new events overnight. discussed with RN. (2) Anemia - On admission hgb 7.8, Hct 23.7, MCV 105.1 - 12/27/2017 hemoglobin improved 8.4 - 01/07/18 hemoglobin 10.3, Hct 31.2, MCV 101.9 - patient does have hx of ETOH abuse - B12 359 and folic acid 12.2 - Iron 48, total iron-binding capacity 183, percent saturation 26.2 - GI was consulted for possible EGD but unable to get consent so was recommended for outpt followup (3) Hypomagnesemia - magnesium 1.3 on admission - Pt was given replacement (4) Tachyarrhythmia - Pt with history of tachyarrhythmia - s/p EPS with ablation of AV re-entry node tachycardia Dr. Vazquez 2016 - Pt started on Metoprolol 25mg po BID with initial improvement in HR - increased metoprolol to 50mg BID on 01/11/18, HR stable (5) ETOH abuse - [facility] protocol - thiamine and folic acid - seizure precautions (6) COPD (chronic obstructive pulmonary disease) - Does not appear to be in acute exacerbation - duonebs if needed (7) HTN (hypertension) - Blood pressure was elevated during admission - Pt was initially started on amlodipine 5 mg p.o. daily but with tachyarrhythmia the Norvasc was stopped and Metoprolol added - BP has been stable.
[2018-02-11] MEDS: Senna/Docusate Sodium 8.6/50 MG Tablet PO SCH ×2 (09:21→20:40)
[2018-02-11] MEDS: Metoprolol Tartrate 50 MG Tablet PO SCH ×2 (09:21→20:40)
[2018-02-11] MEDS: QUEtiapine 25 MG Tablet PO SCH (20:40)
--- NOTE | 2018-02-12 09:28 | P.PNIM ---
Subjective Interval history: no new events Physical Exam Vital signs: Vital Signs 02/11/18 20:00 Temperature 98.0 F Pulse Rate 84 Respiratory Rate 18 Blood Pressure 105/61 Pulse Oximetry 98 Intake & Output 02/11/18 02/12/18 02/12/18 18:59 06:59 18:59 Intake Total 480 / 480 Balance 480 / 480 Weight 51.6 kg Intake: Oral 480 / 480 Other: # Voids 1 # Bowel Movements 0 heart reg lung cta abd s/nt ext no edema Results - Labs CBC & Chem 7: 01/07/18 08:55 12/25/17 22:10 Assessment and Plan - Assessment (1) Altered mental status Code(s): R41.82 - Altered mental status, unspecified Status: Acute Plan: (1) Altered mental status - The patient is a 52 year old female with past medical history which includes Abnormal LFTs, EtOH abuse, chronic back pain, COPD, hypertension, SVT. Patient was brought to [facility] on 12/13 by friend for confusion x 2 weeks weakness and flu like symptoms. Patient was admitted to [facility] from 12/13/17 to 12/18/17 treated for metabolic encephalopathy related to UTI and then DC'd to [facility]. Patient was seen in the emergency department related to altered mentation and anemia . The patient at that time was had hemoglobin of 9.3 and her rectal examination was negative for blood. She was deemed safe for discharge with follow-up as an outpatient. Patient again presented to the ER 12/25/17 for increased altered mentation since falling at her snf at approximately 8 :15 AM 12/25. The patient has a baseline history of altered mentation that is thought to be related to her history of alcohol abuse and Wernicke's encephalopathy. - CT head negative - CXR reviewed the lungs are clear - UA does not indicate UTI, no culture indicated - Patient has ETOH abuse - [facility] protocol - Cont. folic acid and thiamine - Ammonia level 15 - TSH 3.710 - RPR nonreactive - EtOH use and review of prior records patient had been drinking 1.5-2 bottles of wine a day and had been decreasing intake. Patient has recently been admitted to [facility] possibility of EtOH withdrawal causing altered mental status. - PT evaluated - Appreciate Psych evaluation. They did not feel that the patient met criteria for involuntary psychiatric admission. It was felt that the pt may benefit from comprehensive inpatient/outpatient alcohol rehabilitation program. - Supportive care - DC order placed on 12/27/17- case management working on safe DC - CM has enlisted help from Adult Protective Services. No progress has been made to obtain an accepting facility. - Psychiatry re-evaluated 01/08/18- patient does not meet inpatient psych admission criteria - Awaiting safe discharge. - Re-consulted psych for competency evaluation, and they declared pt not competent to make her own medical decisions. - [place] [employer] assisting with Medicaid disability application and discharge planning. - Discussed with RN. - awaiting safe DC arrangements - 02/10/18 increase Seroquel to 100 mg PO QHS no new events overnight. cont current management (2) Anemia - On admission hgb 7.8, Hct 23.7, MCV 105.1 - 12/27/2017 hemoglobin improved 8.4 - 01/07/18 hemoglobin 10.3, Hct 31.2, MCV 101.9 - patient does have hx of ETOH abuse - B12 359 and folic acid 12.2 - Iron 48, total iron-binding capacity 183, percent saturation 26.2 - GI was consulted for possible EGD but unable to get consent so was recommended for outpt followup (3) Hypomagnesemia - magnesium 1.3 on admission - Pt was given replacement (4) Tachyarrhythmia - Pt with history of tachyarrhythmia - s/p EPS with ablation of AV re-entry node tachycardia Dr. Vazquez 2016 - Pt started on Metoprolol 25mg po BID with initial improvement in HR - increased metoprolol to 50mg BID on 01/11/18, HR stable (5) ETOH abuse - [facility] protocol - thiamine and folic acid - seizure precautions (6) COPD (chronic obstructive pulmonary disease) - Does not appear to be in acute exacerbation - duonebs if needed (7) HTN (hypertension) - Blood pressure was elevated during admission - Pt was initially started on amlodipine 5 mg p.o. daily but with tachyarrhythmia the Norvasc was stopped and Metoprolol added - BP has been stable.
[2018-02-12] MEDS: Metoprolol Tartrate 50 MG Tablet PO SCH ×2 (10:07→20:35)
[2018-02-12] MEDS: Senna/Docusate Sodium 8.6/50 MG Tablet PO SCH ×2 (10:07→20:35)
[2018-02-12] MEDS: QUEtiapine 25 MG Tablet PO SCH (20:35)
[2018-02-13] MEDS: Senna/Docusate Sodium 8.6/50 MG Tablet PO SCH ×2 (08:13→21:01)
[2018-02-13] MEDS: Metoprolol Tartrate 50 MG Tablet PO SCH ×2 (08:14→21:01)
--- NOTE | 2018-02-13 09:46 | P.PNIM ---
Subjective Interval history: no new problems overnight Physical Exam Vital signs: Vital Signs 02/12/18 20:00 02/13/18 08:00 Temperature 98.4 F 97.6 F Pulse Rate 84 85 Respiratory Rate 20 20 Blood Pressure 101/57 L 105/69 Pulse Oximetry 97 97 Intake & Output 02/12/18 02/13/18 02/13/18 18:59 06:59 18:59 Intake Total 480 / 480 Balance 480 / 480 Intake: Oral 480 / 480 Other: # Voids 1 # Bowel Movements 0 heart reg lung cta abd s/nt ext no edema Results - Labs CBC & Chem 7: 01/07/18 08:55 12/25/17 22:10 Assessment and Plan - Assessment (1) Altered mental status Code(s): R41.82 - Altered mental status, unspecified Status: Acute Plan: (1) Altered mental status - The patient is a 52 year old female with past medical history which includes Abnormal LFTs, EtOH abuse, chronic back pain, COPD, hypertension, SVT. Patient was brought to [facility] on 12/13 by friend for confusion x 2 weeks weakness and flu like symptoms. Patient was admitted to [facility] from 12/13/17 to 12/18/17 treated for metabolic encephalopathy related to UTI and then DC'd to [facility]. Patient was seen in the emergency department related to altered mentation and anemia . The patient at that time was had hemoglobin of 9.3 and her rectal examination was negative for blood. She was deemed safe for discharge with follow-up as an outpatient. Patient again presented to the ER 12/25/17 for increased altered mentation since falling at her longterm at approximately 8 :15 AM 12/25. The patient has a baseline history of altered mentation that is thought to be related to her history of alcohol abuse and Wernicke's encephalopathy. - CT head negative - CXR reviewed the lungs are clear - UA does not indicate UTI, no culture indicated - Patient has ETOH abuse - [facility] protocol - Cont. folic acid and thiamine - Ammonia level 15 - TSH 3.710 - RPR nonreactive - EtOH use and review of prior records patient had been drinking 1.5-2 bottles of wine a day and had been decreasing intake. Patient has recently been admitted to [facility] possibility of EtOH withdrawal causing altered mental status. - PT evaluated - Appreciate Psych evaluation. They did not feel that the patient met criteria for involuntary psychiatric admission. It was felt that the pt may benefit from comprehensive inpatient/outpatient alcohol rehabilitation program. - Supportive care - DC order placed on 12/27/17- case management working on safe DC - CM has enlisted help from Adult Protective Services. No progress has been made to obtain an accepting facility. - Psychiatry re-evaluated 01/08/18- patient does not meet inpatient psych admission criteria - Awaiting safe discharge. - Re-consulted psych for competency evaluation, and they declared pt not competent to make her own medical decisions. - [place] [employer] assisting with Medicaid disability application and discharge planning. - Discussed with RN. - awaiting safe DC arrangements - 02/10/18 increase Seroquel to 100 mg PO QHS cont current rx. await placement. (2) Anemia - On admission hgb 7.8, Hct 23.7, MCV 105.1 - 12/27/2017 hemoglobin improved 8.4 - 01/07/18 hemoglobin 10.3, Hct 31.2, MCV 101.9 - patient does have hx of ETOH abuse - B12 359 and folic acid 12.2 - Iron 48, total iron-binding capacity 183, percent saturation 26.2 - GI was consulted for possible EGD but unable to get consent so was recommended for outpt followup (3) Hypomagnesemia - magnesium 1.3 on admission - Pt was given replacement (4) Tachyarrhythmia - Pt with history of tachyarrhythmia - s/p EPS with ablation of AV re-entry node tachycardia Dr. Vazquez 2016 - Pt started on Metoprolol 25mg po BID with initial improvement in HR - increased metoprolol to 50mg BID on 01/11/18, HR stable (5) ETOH abuse - [facility] protocol - thiamine and folic acid - seizure precautions (6) COPD (chronic obstructive pulmonary disease) - Does not appear to be in acute exacerbation - duonebs if needed (7) HTN (hypertension) - Blood pressure was elevated during admission - Pt was initially started on amlodipine 5 mg p.o. daily but with tachyarrhythmia the Norvasc was stopped and Metoprolol added - BP has been stable.
[2018-02-13] MEDS: QUEtiapine 25 MG Tablet PO SCH (21:01)
--- NOTE | 2018-02-14 08:39 | P.PNIM ---
Subjective Interval history: doing ok. no events. Physical Exam Vital signs: Vital Signs 02/13/18 20:00 Temperature 98.1 F Pulse Rate 75 Respiratory Rate 16 Blood Pressure 108/60 Pulse Oximetry 98 Intake & Output 02/13/18 02/14/18 02/14/18 18:59 06:59 18:59 Intake Total 720 / 720 360 / 360 Output Total 500 / 500 Balance 220 / 220 360 / 360 Weight 51.5 kg Intake: Oral 720 / 720 360 / 360 Output: Urine 500 / 500 Other: # Voids 4 Date of Last Bowel Movement 02/12/18 heent neg heart reg lung cta abd s/nt ext no edema Results - Labs CBC & Chem 7: 01/07/18 08:55 12/25/17 22:10 Assessment and Plan - Assessment (1) Altered mental status Code(s): R41.82 - Altered mental status, unspecified Status: Acute Plan: (1) Altered mental status - The patient is a 52 year old female with past medical history which includes Abnormal LFTs, EtOH abuse, chronic back pain, COPD, hypertension, SVT. Patient was brought to [facility] on 12/13 by friend for confusion x 2 weeks weakness and flu like symptoms. Patient was admitted to [facility] from 12/13/17 to 12/18/17 treated for metabolic encephalopathy related to UTI and then DC'd to [facility]. Patient was seen in the emergency department related to altered mentation and anemia . The patient at that time was had hemoglobin of 9.3 and her rectal examination was negative for blood. She was deemed safe for discharge with follow-up as an outpatient. Patient again presented to the ER 12/25/17 for increased altered mentation since falling at her [facility] at approximately 8 :15 AM 12/25. The patient has a baseline history of altered mentation that is thought to be related to her history of alcohol abuse and Wernicke's encephalopathy. - CT head negative - CXR reviewed the lungs are clear - UA does not indicate UTI, no culture indicated - Patient has ETOH abuse - [facility] protocol - Cont. folic acid and thiamine - Ammonia level 15 - TSH 3.710 - RPR nonreactive - EtOH use and review of prior records patient had been drinking 1.5-2 bottles of wine a day and had been decreasing intake. Patient has recently been admitted to [facility] possibility of EtOH withdrawal causing altered mental status. - PT evaluated - Appreciate Psych evaluation. They did not feel that the patient met criteria for involuntary psychiatric admission. It was felt that the pt may benefit from comprehensive inpatient/outpatient alcohol rehabilitation program. - Supportive care - DC order placed on 12/27/17- case management working on safe DC - CM has enlisted help from Adult Protective Services. No progress has been made to obtain an accepting facility. - Psychiatry re-evaluated 01/08/18- patient does not meet inpatient psych admission criteria - Awaiting safe discharge. - Re-consulted psych for competency evaluation, and they declared pt not competent to make her own medical decisions. - [place] [employer] assisting with Medicaid disability application and discharge planning. - Discussed with RN. - awaiting safe DC arrangements - 02/10/18 increase Seroquel to 100 mg PO QHS cont current rx. await placement. check with CM on current status of her disposition. (2) Anemia - On admission hgb 7.8, Hct 23.7, MCV 105.1 - 12/27/2017 hemoglobin improved 8.4 - 01/07/18 hemoglobin 10.3, Hct 31.2, MCV 101.9 - patient does have hx of ETOH abuse - B12 359 and folic acid 12.2 - Iron 48, total iron-binding capacity 183, percent saturation 26.2 - GI was consulted for possible EGD but unable to get consent so was recommended for outpt followup (3) Hypomagnesemia - magnesium 1.3 on admission - Pt was given replacement (4) Tachyarrhythmia - Pt with history of tachyarrhythmia - s/p EPS with ablation of AV re-entry node tachycardia Dr. Vazquez 2016 - Pt started on Metoprolol 25mg po BID with initial improvement in HR - increased metoprolol to 50mg BID on 01/11/18, HR stable (5) ETOH abuse - [facility] protocol - thiamine and folic acid - seizure precautions (6) COPD (chronic obstructive pulmonary disease) - Does not appear to be in acute exacerbation - duonebs if needed (7) HTN (hypertension) - Blood pressure was elevated during admission - Pt was initially started on amlodipine 5 mg p.o. daily but with tachyarrhythmia the Norvasc was stopped and Metoprolol added - BP has been stable.
[2018-02-14] MEDS: Metoprolol Tartrate 50 MG Tablet PO SCH ×2 (09:06→20:47)
[2018-02-14] MEDS: Senna/Docusate Sodium 8.6/50 MG Tablet PO SCH ×2 (09:06→20:47)
[2018-02-14] MEDS: QUEtiapine 25 MG Tablet PO SCH (20:47)
[2018-02-15] MEDS: Metoprolol Tartrate 50 MG Tablet PO SCH ×2 (09:26→20:53)
[2018-02-15] MEDS: Senna/Docusate Sodium 8.6/50 MG Tablet PO SCH ×2 (09:26→20:52)
--- NOTE | 2018-02-15 09:46 | P.PNIM ---
Subjective Interval history: no new complaints Physical Exam Vital signs: Vital Signs 02/14/18 20:00 02/15/18 08:00 Temperature 98.2 F 98.2 F Pulse Rate 78 70 Respiratory Rate 16 18 Blood Pressure 107/62 Pulse Oximetry 97 98 Intake & Output 02/14/18 02/15/18 02/15/18 18:59 06:59 18:59 Intake Total 720 / 720 Balance 720 / 720 Weight 52.4 kg Intake: Oral 720 / 720 Other: # Voids 3 2 heart reg lng cta abd s/nt ext no edema Results - Labs CBC & Chem 7: 01/07/18 08:55 12/25/17 22:10 Assessment and Plan - Assessment (1) Altered mental status Code(s): R41.82 - Altered mental status, unspecified Status: Acute Plan: (1) Altered mental status - The patient is a 52 year old female with past medical history which includes Abnormal LFTs, EtOH abuse, chronic back pain, COPD, hypertension, SVT. Patient was brought to [facility] on 12/13 by friend for confusion x 2 weeks weakness and flu like symptoms. Patient was admitted to [facility] from 12/13/17 to 12/18/17 treated for metabolic encephalopathy related to UTI and then DC'd to [facility]. Patient was seen in the emergency department related to altered mentation and anemia . The patient at that time was had hemoglobin of 9.3 and her rectal examination was negative for blood. She was deemed safe for discharge with follow-up as an outpatient. Patient again presented to the ER 12/25/17 for increased altered mentation since falling at her [place] [facility] at approximately 8 :15 AM 12/25. The patient has a baseline history of altered mentation that is thought to be related to her history of alcohol abuse and Wernicke's encephalopathy. - CT head negative - CXR reviewed the lungs are clear - UA does not indicate UTI, no culture indicated - Patient has ETOH abuse - [facility] protocol - Cont. folic acid and thiamine - Ammonia level 15 - TSH 3.710 - RPR nonreactive - EtOH use and review of prior records patient had been drinking 1.5-2 bottles of wine a day and had been decreasing intake. Patient has recently been admitted to [facility] possibility of EtOH withdrawal causing altered mental status. - PT evaluated - Appreciate Psych evaluation. They did not feel that the patient met criteria for involuntary psychiatric admission. It was felt that the pt may benefit from comprehensive inpatient/outpatient alcohol rehabilitation program. - Supportive care - DC order placed on 12/27/17- case management working on safe DC - CM has enlisted help from Adult Protective Services. No progress has been made to obtain an accepting facility. - Psychiatry re-evaluated 01/08/18- patient does not meet inpatient psych admission criteria - Awaiting safe discharge. - Re-consulted psych for competency evaluation, and they declared pt not competent to make her own medical decisions. - [place] [employer] assisting with Medicaid disability application and discharge planning. - Discussed with RN. - awaiting safe DC arrangements - 02/10/18 increase Seroquel to 100 mg PO QHS cont current rx. await placement. (2) Anemia - On admission hgb 7.8, Hct 23.7, MCV 105.1 - 12/27/2017 hemoglobin improved 8.4 - 01/07/18 hemoglobin 10.3, Hct 31.2, MCV 101.9 - patient does have hx of ETOH abuse - B12 359 and folic acid 12.2 - Iron 48, total iron-binding capacity 183, percent saturation 26.2 - GI was consulted for possible EGD but unable to get consent so was recommended for outpt followup (3) Hypomagnesemia - magnesium 1.3 on admission - Pt was given replacement (4) Tachyarrhythmia - Pt with history of tachyarrhythmia - s/p EPS with ablation of AV re-entry node tachycardia Dr. Vazquez 2016 - Pt started on Metoprolol 25mg po BID with initial improvement in HR - increased metoprolol to 50mg BID on 01/11/18, HR stable (5) ETOH abuse - [facility] protocol - thiamine and folic acid - seizure precautions (6) COPD (chronic obstructive pulmonary disease) - Does not appear to be in acute exacerbation - duonebs if needed (7) HTN (hypertension) - Blood pressure was elevated during admission - Pt was initially started on amlodipine 5 mg p.o. daily but with tachyarrhythmia the Norvasc was stopped and Metoprolol added - BP has been stable.
[2018-02-15] MEDS: QUEtiapine 25 MG Tablet PO SCH (20:51)
[2018-02-16] MEDS: Metoprolol Tartrate 50 MG Tablet PO SCH ×2 (09:12→20:48)
[2018-02-16] MEDS: Senna/Docusate Sodium 8.6/50 MG Tablet PO SCH ×2 (09:13→20:48)
--- NOTE | 2018-02-16 09:59 | P.PNIM ---
Subjective Interval history: no events Physical Exam Vital signs: Vital Signs 02/15/18 16:00 02/15/18 20:00 02/16/18 08:00 Temperature 98.3 F 97.8 F Pulse Rate 80 82 Respiratory Rate 16 17 Blood Pressure 95/60 L 129/69 Pulse Oximetry 98 96 98 Intake & Output 02/15/18 02/16/18 02/16/18 18:59 06:59 18:59 Intake Total 240 / 240 Balance 240 / 240 Weight 53.1 kg Intake: Oral 240 / 240 Other: # Voids 2 Date of Last Bowel Movement 02/12/18 02/15/18 # Bowel Movements 1 heart reg lung cta abd s/nt ext no edema Results - Labs CBC & Chem 7: 01/07/18 08:55 12/25/17 22:10 Assessment and Plan - Assessment (1) Altered mental status Code(s): R41.82 - Altered mental status, unspecified Status: Acute Plan: (1) Altered mental status - The patient is a 52 year old female with past medical history which includes Abnormal LFTs, EtOH abuse, chronic back pain, COPD, hypertension, SVT. Patient was brought to [facility] on 12/13 by friend for confusion x 2 weeks weakness and flu like symptoms. Patient was admitted to [facility] from 12/13/17 to 12/18/17 treated for metabolic encephalopathy related to UTI and then DC'd to [facility]. Patient was seen in the emergency department related to altered mentation and anemia . The patient at that time was had hemoglobin of 9.3 and her rectal examination was negative for blood. She was deemed safe for discharge with follow-up as an outpatient. Patient again presented to the ER 12/25/17 for increased altered mentation [facility] The patient has a baseline history of altered mentation that is thought to be related to her history of alcohol abuse and Wernicke's encephalopathy. - CT head negative - CXR reviewed the lungs are clear - UA does not indicate UTI, no culture indicated - Patient has ETOH abuse - [facility] protocol - Cont. folic acid and thiamine - Ammonia level 15 - TSH 3.710 - RPR nonreactive - EtOH use and review of prior records patient had been drinking 1.5-2 bottles of wine a day and had been decreasing intake. Patient has recently been admitted to [facility] possibility of EtOH withdrawal causing altered mental status. - PT evaluated - Appreciate Psych evaluation. They did not feel that the patient met criteria for involuntary psychiatric admission. It was felt that the pt may benefit from comprehensive inpatient/outpatient alcohol rehabilitation program. - Supportive care - DC order placed on 12/27/17- case management working on safe DC - CM has enlisted help from Adult Protective Services. No progress has been made to obtain an accepting facility. - Psychiatry re-evaluated 01/08/18- patient does not meet inpatient psych admission criteria - Awaiting safe discharge. - Re-consulted psych for competency evaluation, and they declared pt not competent to make her own medical decisions. - [place] [employer] assisting with Medicaid disability application and discharge planning. - Discussed with RN. - awaiting safe DC arrangements - 02/10/18 increase Seroquel to 100 mg PO QHS cont rx. await placement decisions. (2) Anemia - On admission hgb 7.8, Hct 23.7, MCV 105.1 - 12/27/2017 hemoglobin improved 8.4 - 01/07/18 hemoglobin 10.3, Hct 31.2, MCV 101.9 - patient does have hx of ETOH abuse - B12 359 and folic acid 12.2 - Iron 48, total iron-binding capacity 183, percent saturation 26.2 - GI was consulted for possible EGD but unable to get consent so was recommended for outpt followup (3) Hypomagnesemia - magnesium 1.3 on admission - Pt was given replacement (4) Tachyarrhythmia - Pt with history of tachyarrhythmia - s/p EPS with ablation of AV re-entry node tachycardia Dr. Vazquez 2016 - Pt started on Metoprolol 25mg po BID with initial improvement in HR - increased metoprolol to 50mg BID on 01/11/18, HR stable (5) ETOH abuse - [facility] protocol - thiamine and folic acid - seizure precautions (6) COPD (chronic obstructive pulmonary disease) - Does not appear to be in acute exacerbation - duonebs if needed (7) HTN (hypertension) - Blood pressure was elevated during admission - Pt was initially started on amlodipine 5 mg p.o. daily but with tachyarrhythmia the Norvasc was stopped and Metoprolol added - BP has been stable.
[2018-02-16] MEDS: QUEtiapine 25 MG Tablet PO SCH (20:48)
[2018-02-17] MEDS: Senna/Docusate Sodium 8.6/50 MG Tablet PO SCH ×2 (08:42→19:59)
[2018-02-17] MEDS: Metoprolol Tartrate 50 MG Tablet PO SCH ×2 (08:43→19:59)
--- NOTE | 2018-02-17 09:52 | P.PNIM ---
Subjective Interval history: no events Physical Exam Vital signs: Vital Signs 02/16/18 16:00 02/16/18 20:00 02/17/18 00:00 Temperature 98.3 F Pulse Rate 78 Respiratory Rate 18 Blood Pressure 103/69 Pulse Oximetry 97 98 98 02/17/18 04:00 02/17/18 08:00 Temperature 97.8 F Pulse Rate 69 Respiratory Rate 20 Blood Pressure 101/63 Pulse Oximetry 98 98 Intake & Output 02/16/18 02/17/18 02/17/18 18:59 06:59 18:59 Intake Total 720 / 720 120 / 120 Balance 720 / 720 120 / 120 Weight 51.5 kg Intake: Oral 720 / 720 120 / 120 Other: # Voids 3 2 Date of Last Bowel Movement 02/15/18 # Bowel Movements 0 heart reg lung cta abd s/nt ext no edema Results - Labs CBC & Chem 7: 01/07/18 08:55 12/25/17 22:10 Assessment and Plan - Assessment (1) Altered mental status Code(s): R41.82 - Altered mental status, unspecified Status: Acute Plan: (1) Altered mental status - The patient is a 52 year old female with past medical history which includes Abnormal LFTs, EtOH abuse, chronic back pain, COPD, hypertension, SVT. Patient was brought to [facility] on 12/13 by friend for confusion x 2 weeks weakness and flu like symptoms. Patient was admitted to [facility] from 12/13/17 to 12/18/17 treated for metabolic encephalopathy related to UTI and then DC'd to [facility]. Patient was seen in the emergency department related to altered mentation and anemia . The patient at that time was had hemoglobin of 9.3 and her rectal examination was negative for blood. She was deemed safe for discharge with follow-up as an outpatient. Patient again presented to the ER 12/25/17 for increased altered mentation since falling at her [facility] at approximately 8 :15 AM 12/25. The patient has a baseline history of altered mentation that is thought to be related to her history of alcohol abuse and Wernicke's encephalopathy. - CT head negative - CXR reviewed the lungs are clear - UA does not indicate UTI, no culture indicated - Patient has ETOH abuse - [facility] protocol - Cont. folic acid and thiamine - Ammonia level 15 - TSH 3.710 - RPR nonreactive - EtOH use and review of prior records patient had been drinking 1.5-2 bottles of wine a day and had been decreasing intake. Patient has recently been admitted to [facility] nursing [facility] possibility of EtOH withdrawal causing altered mental status. - PT evaluated - Appreciate Psych evaluation. They did not feel that the patient met criteria for involuntary psychiatric admission. It was felt that the pt may benefit from comprehensive inpatient/outpatient alcohol rehabilitation program. - Supportive care - DC order placed on 12/27/17- case management working on safe DC - CM has enlisted help from Adult Protective Services. No progress has been made to obtain an accepting facility. - Psychiatry re-evaluated 01/08/18- patient does not meet inpatient psych admission criteria - Awaiting safe discharge. - Re-consulted psych for competency evaluation, and they declared pt not competent to make her own medical decisions. - [place] [employer] assisting with Medicaid disability application and discharge planning. - Discussed with RN. - awaiting safe DC arrangements - 02/10/18 increase Seroquel to 100 mg PO QHS cont rx. await placement decisions. (2) Anemia - On admission hgb 7.8, Hct 23.7, MCV 105.1 - 12/27/2017 hemoglobin improved 8.4 - 01/07/18 hemoglobin 10.3, Hct 31.2, MCV 101.9 - patient does have hx of ETOH abuse - B12 359 and folic acid 12.2 - Iron 48, total iron-binding capacity 183, percent saturation 26.2 - GI was consulted for possible EGD but unable to get consent so was recommended for outpt followup (3) Hypomagnesemia - magnesium 1.3 on admission - Pt was given replacement (4) Tachyarrhythmia - Pt with history of tachyarrhythmia - s/p EPS with ablation of AV re-entry node tachycardia Dr. Vazquez 2016 - Pt started on Metoprolol 25mg po BID with initial improvement in HR - increased metoprolol to 50mg BID on 01/11/18, HR stable (5) ETOH abuse - [facility] protocol - thiamine and folic acid - seizure precautions (6) COPD (chronic obstructive pulmonary disease) - Does not appear to be in acute exacerbation - duonebs if needed (7) HTN (hypertension) - Blood pressure was elevated during admission - Pt was initially started on amlodipine 5 mg p.o. daily but with tachyarrhythmia the Norvasc was stopped and Metoprolol added - BP has been stable.
[2018-02-17] MEDS: QUEtiapine 25 MG Tablet PO SCH (19:59)
[2018-02-18] MEDS: Senna/Docusate Sodium 8.6/50 MG Tablet PO SCH ×2 (10:35→21:01)
[2018-02-18] MEDS: Metoprolol Tartrate 50 MG Tablet PO SCH ×2 (10:35→21:04)
--- NOTE | 2018-02-18 14:29 | P.PNIM ---
Subjective Interval history: No new complaints or changes per nursing staff Physical Exam Vital signs: Vital Signs 02/17/18 16:00 02/17/18 20:00 02/18/18 04:00 Temperature 98.1 F Pulse Rate 88 Respiratory Rate 18 Blood Pressure 107/63 Pulse Oximetry 96 97 97 02/18/18 08:00 Temperature 97.3 F L Pulse Rate 76 Respiratory Rate 18 Blood Pressure 109/67 Pulse Oximetry 100 Intake & Output 02/17/18 02/18/18 02/18/18 18:59 06:59 18:59 Intake Total 222 / 222 Balance 222 / 222 Weight 51.8 kg Intake: Oral 222 / 222 Other: # Voids 2 Date of Last Bowel Movement 02/17/18 # Bowel Movements 0 Narrative: GENERAL: NAD, pleasantly confused oriented to self only NECK: Supple, trachea midline. CARDIO: Regular rate and rhythm RESP: Breath sounds equal bilaterally. No accessory muscle use. ABD: Abdomen soft, non-tender, nondistended. EXT: No cyanosis, or edema. Results - Labs CBC & Chem 7: 01/07/18 08:55 12/25/17 22:10 Assessment and Plan - Assessment (1) Altered mental status Code(s): R41.82 - Altered mental status, unspecified Status: Acute Plan: (1) Altered mental status - The patient is a 52 year old female with past medical history which includes Abnormal LFTs, EtOH abuse, chronic back pain, COPD, hypertension, SVT. Patient was brought to [facility] on 12/13 by friend for confusion x 2 weeks weakness and flu like symptoms. Patient was admitted to [facility] from 12/13/17 to 12/18/17 treated for metabolic encephalopathy related to UTI and then DC'd to [facility]. Patient was seen in the emergency department related to altered mentation and anemia . The patient at that time was had hemoglobin of 9.3 and her rectal examination was negative for blood. She was deemed safe for discharge with follow-up as an outpatient. Patient again presented to the ER 12/25/17 for increased altered mentation since falling at her [facility] at approximately 8 :15 AM 12/25. The patient has a baseline history of altered mentation that is thought to be related to her history of alcohol abuse and Wernicke's encephalopathy. - CT head negative - CXR reviewed the lungs are clear - UA does not indicate UTI, no culture indicated - Patient has ETOH abuse - [facility] protocol - Cont. folic acid and thiamine - Ammonia level 15 - TSH 3.710 - RPR nonreactive - EtOH use and review of prior records patient had been drinking 1.5-2 bottles of wine a day and had been decreasing intake. Patient has recently been admitted to [facility] possibility of EtOH withdrawal causing altered mental status. - PT evaluated - Appreciate Psych evaluation. They did not feel that the patient met criteria for involuntary psychiatric admission. It was felt that the pt may benefit from comprehensive inpatient/outpatient alcohol rehabilitation program. - Supportive care - DC order placed on 12/27/17- case management working on safe DC - CM has enlisted help from Adult Protective Services. No progress has been made to obtain an accepting facility. - Psychiatry re-evaluated 01/08/18- patient does not meet inpatient psych admission criteria - Awaiting safe discharge. - Re-consulted psych for competency evaluation, and they declared pt not competent to make her own medical decisions. - [place] [employer] assisting with Medicaid disability application and discharge planning. Discussed with CM on 02/17/18 and pts medicaid application at this point has not been approved so awaiting approval to try to find placement. - Discussed with RN. - Awaiting safe DC arrangements - 02/10/18 increase Seroquel to 100 mg PO QHS (2) Anemia - On admission hgb 7.8, Hct 23.7, MCV 105.1 - 12/27/2017 hemoglobin improved 8.4 - 01/07/18 hemoglobin 10.3, Hct 31.2, MCV 101.9 - patient does have hx of ETOH abuse - B12 359 and folic acid 12.2 - Iron 48, total iron-binding capacity 183, percent saturation 26.2 - GI was consulted for possible EGD but unable to get consent so was recommended for outpt followup (3) Hypomagnesemia - magnesium 1.3 on admission - Pt was given replacement (4) Tachyarrhythmia - Pt with history of tachyarrhythmia - s/p EPS with ablation of AV re-entry node tachycardia Dr. Vazquez 2016 - Pt started on Metoprolol 25mg po BID with initial improvement in HR - increased metoprolol to 50mg BID on 01/11/18, HR stable (5) ETOH abuse - [facility] protocol - thiamine and folic acid - seizure precautions (6) COPD (chronic obstructive pulmonary disease) - Does not appear to be in acute exacerbation - duonebs if needed (7) HTN (hypertension) - Blood pressure was elevated during admission - Pt was initially started on amlodipine 5 mg p.o. daily but with tachyarrhythmia the Norvasc was stopped and Metoprolol added - BP has been stable. (2) Anemia Code(s): D64.9 - Anemia, unspecified Status: Chronic (3) Hypomagnesemia Code(s): E83.42 - Hypomagnesemia Status: Acute (4) Tachyarrhythmia Code(s): R00.0 - Tachycardia, unspecified Status: Chronic (5) ETOH abuse Code(s): F10.10 - Alcohol abuse, uncomplicated Status: Chronic (6) COPD (chronic obstructive pulmonary disease) Code(s): J44.9 - Chronic obstructive pulmonary disease, unspecified Status: Chronic (7) HTN (hypertension) Code(s): I10 - Essential (primary) hypertension Status: Chronic - Plan Patient examined. Assessment and plan formulated with Deirdre Olmstead PA-C. I agree with the above. (2) Anemia Qualifiers: Anemia type: unspecified type Qualified Code(s): D64.9 - Anemia, unspecified
[2018-02-18] MEDS: QUEtiapine 25 MG Tablet PO SCH (21:01)
[2018-02-19] MEDS: Senna/Docusate Sodium 8.6/50 MG Tablet PO SCH ×2 (09:00→21:18)
[2018-02-19] MEDS: Metoprolol Tartrate 50 MG Tablet PO SCH ×2 (09:00→21:17)
--- NOTE | 2018-02-19 14:34 | P.PNIM ---
Subjective Interval history: No new changes overnight Vitals are stable Physical Exam Vital signs: Vital Signs 02/18/18 20:00 02/19/18 08:00 Temperature 97 F L 98.4 F Pulse Rate 78 68 Respiratory Rate 18 18 Blood Pressure 107/64 122/69 Pulse Oximetry 98 99 Intake & Output 02/18/18 02/19/18 02/19/18 18:59 06:59 18:59 Intake Total 720 / 720 240 / 240 Balance 720 / 720 240 / 240 Weight 52.5 kg Intake: Oral 720 / 720 240 / 240 Other: # Voids 1 3 Date of Last Bowel Movement 02/17/18 02/17/18 02/17/18 # Bowel Movements 0 1 Narrative: GENERAL: NAD, pleasantly confused oriented to self only NECK: Supple, trachea midline. CARDIO: Regular rate and rhythm RESP: Breath sounds equal bilaterally. No accessory muscle use. ABD: Abdomen soft, non-tender, nondistended. EXT: No cyanosis, or edema. Results - Labs CBC & Chem 7: 01/07/18 08:55 12/25/17 22:10 Assessment and Plan - Assessment (1) Altered mental status Code(s): R41.82 - Altered mental status, unspecified Status: Acute Plan: (1) Altered mental status - The patient is a 52 year old female with past medical history which includes Abnormal LFTs, EtOH abuse, chronic back pain, COPD, hypertension, SVT. Patient was brought to [facility] on 12/13 by friend for confusion x 2 weeks weakness and flu like symptoms. Patient was admitted to [facility] from 12/13/17 to 12/18/17 treated for metabolic encephalopathy related to UTI and then DC'd to [facility]. Patient was seen in the emergency department related to altered mentation and anemia . The patient at that time was had hemoglobin of 9.3 and her rectal examination was negative for blood. She was deemed safe for discharge with follow-up as an outpatient. Patient again presented to the ER 12/25/17 for increased altered mentation since falling at her [facility] at approximately 8 :15 AM 12/25. The patient has a baseline history of altered mentation that is thought to be related to her history of alcohol abuse and Wernicke's encephalopathy. - CT head negative - CXR reviewed the lungs are clear - UA does not indicate UTI, no culture indicated - Patient has ETOH abuse - [facility] protocol - Cont. folic acid and thiamine - Ammonia level 15 - TSH 3.710 - RPR nonreactive - EtOH use and review of prior records patient had been drinking 1.5-2 bottles of wine a day and had been decreasing intake. Patient has recently been admitted to [facility] possibility of EtOH withdrawal causing altered mental status. - PT evaluated - Appreciate Psych evaluation. They did not feel that the patient met criteria for involuntary psychiatric admission. It was felt that the pt may benefit from comprehensive inpatient/outpatient alcohol rehabilitation program. - Supportive care - DC order placed on 12/27/17- case management working on safe DC - CM has enlisted help from Adult Protective Services. No progress has been made to obtain an accepting facility. - Psychiatry re-evaluated 01/08/18- patient does not meet inpatient psych admission criteria - Re-consulted psych for competency evaluation, and they declared pt not competent to make her own medical decisions. - [place] [employer] assisting with Medicaid disability application and discharge planning. Discussed with CM on 02/17/18 and pts medicaid application at this point has not been approved so awaiting approval to try to find placement. - Discussed with RN. - Awaiting safe DC arrangements - 02/10/18 increase Seroquel to 100 mg PO QHS (2) Anemia - On admission hgb 7.8, Hct 23.7, MCV 105.1 - 12/27/2017 hemoglobin improved 8.4 - 01/07/18 hemoglobin 10.3, Hct 31.2, MCV 101.9 - patient does have hx of ETOH abuse - B12 359 and folic acid 12.2 - Iron 48, total iron-binding capacity 183, percent saturation 26.2 - GI was consulted for possible EGD but unable to get consent so was recommended for outpt followup (3) Hypomagnesemia - magnesium 1.3 on admission - Pt was given replacement (4) Tachyarrhythmia - Pt with history of tachyarrhythmia - s/p EPS with ablation of AV re-entry node tachycardia Dr. Vazquez 2016 - Pt started on Metoprolol 25mg po BID with initial improvement in HR - increased metoprolol to 50mg BID on 01/11/18, HR stable (5) ETOH abuse - [facility] protocol - thiamine and folic acid - seizure precautions (6) COPD (chronic obstructive pulmonary disease) - Does not appear to be in acute exacerbation - duonebs if needed (7) HTN (hypertension) - Blood pressure was elevated during admission - Pt was initially started on amlodipine 5 mg p.o. daily but with tachyarrhythmia the Norvasc was stopped and Metoprolol added - BP has been stable. (2) Anemia Code(s): D64.9 - Anemia, unspecified Status: Chronic (3) Hypomagnesemia Code(s): E83.42 - Hypomagnesemia Status: Acute (4) Tachyarrhythmia Code(s): R00.0 - Tachycardia, unspecified Status: Chronic (5) ETOH abuse Code(s): F10.10 - Alcohol abuse, uncomplicated Status: Chronic (6) COPD (chronic obstructive pulmonary disease) Code(s): J44.9 - Chronic obstructive pulmonary disease, unspecified Status: Chronic (7) HTN (hypertension) Code(s): I10 - Essential (primary) hypertension Status: Chronic - Plan Patient examined. Assessment and plan formulated with Deirdre Olmstead PA-C. I agree with the above. (2) Anemia Qualifiers: Anemia type: unspecified type Qualified Code(s): D64.9 - Anemia, unspecified
[2018-02-19] MEDS: QUEtiapine 25 MG Tablet PO SCH (21:18)
[2018-02-20] MEDS: Senna/Docusate Sodium 8.6/50 MG Tablet PO SCH ×2 (08:24→21:38)
[2018-02-20] MEDS: Metoprolol Tartrate 50 MG Tablet PO SCH ×2 (09:34→21:38)
--- NOTE | 2018-02-20 15:20 | P.PNIM ---
Subjective Interval history: No new complaints. Physical Exam Vital signs: Vital Signs 02/19/18 20:00 02/20/18 08:00 Temperature 98.1 F 98.6 F Pulse Rate 72 72 Respiratory Rate 18 17 Blood Pressure 96/66 L 113/74 Pulse Oximetry 97 99 Intake & Output 02/19/18 02/20/18 02/20/18 18:59 06:59 18:59 Intake Total 240 / 240 Balance 240 / 240 Weight 52.3 kg Intake: Oral 240 / 240 Other: # Voids 1 Date of Last Bowel Movement 02/17/18 02/17/18 02/17/18 Narrative: GENERAL: NAD, pleasantly confused oriented to self only NECK: Supple, trachea midline. CARDIO: Regular rate and rhythm RESP: Breath sounds equal bilaterally. No accessory muscle use. ABD: Abdomen soft, non-tender, nondistended. EXT: No cyanosis, or edema. Results - Labs CBC & Chem 7: 01/07/18 08:55 12/25/17 22:10 Assessment and Plan - Assessment (1) Altered mental status Code(s): R41.82 - Altered mental status, unspecified Status: Acute Plan: (1) Altered mental status - The patient is a 52 year old female with past medical history which includes Abnormal LFTs, EtOH abuse, chronic back pain, COPD, hypertension, SVT. Patient was brought to [facility] on 12/13 by friend for confusion x 2 weeks weakness and flu like symptoms. Patient was admitted to [facility] from 12/13/17 to 12/18/17 treated for metabolic encephalopathy related to UTI and then DC'd to [facility]. Patient was seen in the emergency department related to altered mentation and anemia . The patient at that time was had hemoglobin of 9.3 and her rectal examination was negative for blood. She was deemed safe for discharge with follow-up as an outpatient. Patient again presented to the ER 12/25/17 for increased altered mentation since [facility] at approximately 8 :15 AM 12/25. The patient has a baseline history of altered mentation that is thought to be related to her history of alcohol abuse and Wernicke's encephalopathy. - CT head negative - CXR reviewed the lungs are clear - UA does not indicate UTI, no culture indicated - Patient has ETOH abuse - [facility] protocol - Cont. folic acid and thiamine - Ammonia level 15 - TSH 3.710 - RPR nonreactive - EtOH use and review of prior records patient had been drinking 1.5-2 bottles of wine a day and had been decreasing intake. Patient has recently been admitted to [facility] possibility of EtOH withdrawal causing altered mental status. - PT evaluated - Appreciate Psych evaluation. They did not feel that the patient met criteria for involuntary psychiatric admission. It was felt that the pt may benefit from comprehensive inpatient/outpatient alcohol rehabilitation program. - Supportive care - DC order placed on 12/27/17- case management working on safe DC - CM has enlisted help from Adult Protective Services. No progress has been made to obtain an accepting facility. - Psychiatry re-evaluated 01/08/18- patient does not meet inpatient psych admission criteria - Re-consulted psych for competency evaluation, and they declared pt not competent to make her own medical decisions. - [place] [employer] assisting with Medicaid disability application and discharge planning. Discussed with CM on 02/17/18 and pts medicaid application at this point has not been approved so awaiting approval to try to find placement. - Discussed with RN. - Awaiting safe DC arrangements - 02/10/18 increase Seroquel to 100 mg PO QHS - continue current treatment plan. - awaiting placement arrangements. (2) Anemia - On admission hgb 7.8, Hct 23.7, MCV 105.1 - 12/27/2017 hemoglobin improved 8.4 - 01/07/18 hemoglobin 10.3, Hct 31.2, MCV 101.9 - patient does have hx of ETOH abuse - B12 359 and folic acid 12.2 - Iron 48, total iron-binding capacity 183, percent saturation 26.2 - GI was consulted for possible EGD but unable to get consent so was recommended for outpt followup (3) Hypomagnesemia - magnesium 1.3 on admission - Pt was given replacement (4) Tachyarrhythmia - Pt with history of tachyarrhythmia - s/p EPS with ablation of AV re-entry node tachycardia Dr. Vazquez 2016 - Pt started on Metoprolol 25mg po BID with initial improvement in HR - increased metoprolol to 50mg BID on 01/11/18, HR stable (5) ETOH abuse - [facility] protocol - thiamine and folic acid - seizure precautions (6) COPD (chronic obstructive pulmonary disease) - Does not appear to be in acute exacerbation - duonebs if needed (7) HTN (hypertension) - Blood pressure was elevated during admission - Pt was initially started on amlodipine 5 mg p.o. daily but with tachyarrhythmia the Norvasc was stopped and Metoprolol added - BP has been stable. (2) Anemia Code(s): D64.9 - Anemia, unspecified Status: Chronic Plan: - On admission hgb 7.8, Hct 23.7, MCV 105.1 - 12/27/2017 hemoglobin improved 8.4 - 01/07/18 hemoglobin 10.3, Hct 31.2, MCV 101.9 - patient does have hx of ETOH abuse - B12 359 and folic acid 12.2 - Iron 48, total iron-binding capacity 183, percent saturation 26.2 - GI was consulted for possible EGD but unable to get consent so was recommended for outpt followup (3) Hypomagnesemia Code(s): E83.42 - Hypomagnesemia Status: Acute Plan: - magnesium 1.3 on admission - Pt was given replacement (4) Tachyarrhythmia Code(s): R00.0 - Tachycardia, unspecified Status: Chronic Plan: - Pt with history of tachyarrhythmia - s/p EPS with ablation of AV re-entry node tachycardia Dr. Vazquez 2016 - Pt started on Metoprolol 25mg po BID with initial improvement in HR - increased metoprolol to 50mg BID on 01/11/18, HR stable (5) ETOH abuse Code(s): F10.10 - Alcohol abuse, uncomplicated Status: Chronic Plan: - [facility] protocol - thiamine and folic acid - seizure precautions (6) COPD (chronic obstructive pulmonary disease) Code(s): J44.9 - Chronic obstructive pulmonary disease, unspecified Status: Chronic Plan: - Does not appear to be in acute exacerbation - duonebs if needed (7) HTN (hypertension) Code(s): I10 - Essential (primary) hypertension Status: Chronic Plan: - Blood pressure was elevated during admission - Pt was initially started on amlodipine 5 mg p.o. daily but with tachyarrhythmia the Norvasc was stopped and Metoprolol added - BP has been stable. - Plan Patient examined. Assessment and plan formulated with Deirdre Olmstead PA-C. I agree with the above. (2) Anemia Qualifiers: Anemia type: unspecified type Qualified Code(s): D64.9 - Anemia, unspecified
[2018-02-20] MEDS: QUEtiapine 25 MG Tablet PO SCH (21:39)
[2018-02-21] MEDS: Senna/Docusate Sodium 8.6/50 MG Tablet PO SCH ×2 (08:19→21:14)
[2018-02-21] MEDS: Metoprolol Tartrate 50 MG Tablet PO SCH ×2 (08:55→21:14)
--- NOTE | 2018-02-21 16:45 | P.PN ---
Subjective Interval history: Patient sitting in chair by nursing desk oriented to person only offers no concerns/complaints Physical Exam Vital signs: Vital Signs 02/20/18 20:00 02/21/18 08:00 Temperature 97.8 F 97.0 F L Pulse Rate 69 96 H Respiratory Rate 16 17 Blood Pressure 104/55 L 91/73 L Pulse Oximetry 98 99 Intake & Output 02/20/18 02/21/18 02/21/18 18:59 06:59 18:59 Intake Total 720 / 720 240 / 240 Balance 720 / 720 240 / 240 Intake: Oral 720 / 720 240 / 240 Other: # Voids 4 2 Date of Last Bowel Movement 02/17/18 02/20/18 # Bowel Movements 0 0 Narrative: GENERAL: NAD, pleasantly confused oriented to self only NECK: Supple, trachea midline. CARDIO: Regular rate and rhythm RESP: Breath sounds equal bilaterally. No accessory muscle use. ABD: Abdomen soft, non-tender, nondistended. EXT: No cyanosis, or edema. Results - Labs CBC & Chem 7: 01/07/18 08:55 12/25/17 22:10 Assessment and Plan - Assessment (1) Altered mental status Code(s): R41.82 - Altered mental status, unspecified Status: Acute Plan: (1) Altered mental status - The patient is a 52 year old female with past medical history which includes Abnormal LFTs, EtOH abuse, chronic back pain, COPD, hypertension, SVT. Patient was brought to [facility] on 12/13 by friend for confusion x 2 weeks weakness and flu like symptoms. Patient was admitted to [facility] from 12/13/17 to 12/18/17 treated for metabolic encephalopathy related to UTI and then DC'd to [facility]. Patient was seen in the emergency department related to altered mentation and anemia . The patient at that time was had hemoglobin of 9.3 and her rectal examination was negative for blood. She was deemed safe for discharge with follow-up as an outpatient. Patient again presented to the ER 12/25/17 for increased altered mentation since falling at her assisted at approximately 8 :15 AM 12/25. The patient has a baseline history of altered mentation that is thought to be related to her history of alcohol abuse and Wernicke's encephalopathy. - CT head negative - CXR reviewed the lungs are clear - UA does not indicate UTI, no culture indicated - Patient has ETOH abuse - [facility] protocol - Cont. folic acid and thiamine - Ammonia level 15 - TSH 3.710 - RPR nonreactive - EtOH use and review of prior records patient had been drinking 1.5-2 bottles of wine a day and had been decreasing intake. Patient has recently been admitted to [facility] possibility of EtOH withdrawal causing altered mental status. - PT evaluated - Appreciate Psych evaluation. They did not feel that the patient met criteria for involuntary psychiatric admission. It was felt that the pt may benefit from comprehensive inpatient/outpatient alcohol rehabilitation program. - Supportive care - DC order placed on 12/27/17- case management working on safe DC - CM has enlisted help from Adult Protective Services. No progress has been made to obtain an accepting facility. - Psychiatry re-evaluated 01/08/18- patient does not meet inpatient psych admission criteria - Re-consulted psych for competency evaluation, and they declared pt not competent to make her own medical decisions. - [place] [employer] assisting with Medicaid disability application and discharge planning. Discussed with CM on 02/17/18 and pts medicaid application at this point has not been approved so awaiting approval to try to find placement. - Discussed with RN. - Awaiting safe DC arrangements - 02/10/18 increase Seroquel to 100 mg PO QHS - continue current treatment plan. - awaiting placement arrangements. (2) Anemia - On admission hgb 7.8, Hct 23.7, MCV 105.1 - 12/27/2017 hemoglobin improved 8.4 - 01/07/18 hemoglobin 10.3, Hct 31.2, MCV 101.9 - patient does have hx of ETOH abuse - B12 359 and folic acid 12.2 - Iron 48, total iron-binding capacity 183, percent saturation 26.2 - GI was consulted for possible EGD but unable to get consent so was recommended for outpt followup (3) Hypomagnesemia - magnesium 1.3 on admission - Pt was given replacement (4) Tachyarrhythmia - Pt with history of tachyarrhythmia - s/p EPS with ablation of AV re-entry node tachycardia Dr. Vazquez 2016 - Pt started on Metoprolol 25mg po BID with initial improvement in HR - increased metoprolol to 50mg BID on 01/11/18, HR stable (5) ETOH abuse - [facility] protocol - thiamine and folic acid - seizure precautions (6) COPD (chronic obstructive pulmonary disease) - Does not appear to be in acute exacerbation - duonebs if needed (7) HTN (hypertension) - Blood pressure was elevated during admission - Pt was initially started on amlodipine 5 mg p.o. daily but with tachyarrhythmia the Norvasc was stopped and Metoprolol added - BP has been stable. (2) Anemia Code(s): D64.9 - Anemia, unspecified Status: Chronic (3) Hypomagnesemia Code(s): E83.42 - Hypomagnesemia Status: Acute (4) Tachyarrhythmia Code(s): R00.0 - Tachycardia, unspecified Status: Chronic (5) ETOH abuse Code(s): F10.10 - Alcohol abuse, uncomplicated Status: Chronic (6) COPD (chronic obstructive pulmonary disease) Code(s): J44.9 - Chronic obstructive pulmonary disease, unspecified Status: Chronic (7) HTN (hypertension) Code(s): I10 - Essential (primary) hypertension Status: Chronic - Attending Attestation Patient examined. Assessment and plan formulated with Betsy Newman PA-C. I agree with the above. (2) Anemia Qualifiers: Anemia type: unspecified type Qualified Code(s): D64.9 - Anemia, unspecified
[2018-02-21] MEDS: QUEtiapine 25 MG Tablet PO SCH (21:14)
[2018-02-22] MEDS: Senna/Docusate Sodium 8.6/50 MG Tablet PO SCH ×2 (08:45→21:38)
[2018-02-22] MEDS: Metoprolol Tartrate 50 MG Tablet PO SCH ×2 (08:45→21:38)
--- NOTE | 2018-02-22 14:14 | P.PNIM ---
Subjective Interval history: Patient resting in bed remains pleasantly confused offers no medical complaints, does not appear to be in any acute distress Physical Exam Vital signs: Vital Signs 02/21/18 16:00 02/21/18 20:00 02/21/18 22:27 Temperature 98 F Pulse Rate 88 Respiratory Rate 16 Blood Pressure 98/57 L Pulse Oximetry 99 98 98 02/22/18 08:00 Temperature 97.8 F Pulse Rate 76 Respiratory Rate 20 Blood Pressure 101/59 L Pulse Oximetry 97 Intake & Output 02/21/18 02/22/18 02/22/18 18:59 06:59 18:59 Intake Total 720 / 720 240 / 240 Balance 720 / 720 240 / 240 Weight 53 kg Intake: Oral 720 / 720 240 / 240 Other: # Voids 3 2 Date of Last Bowel Movement 02/20/18 # Bowel Movements 0 0 Narrative: GENERAL: NAD, pleasantly confused oriented to self only NECK: Supple, trachea midline. CARDIO: Regular rate and rhythm RESP: Breath sounds equal bilaterally. No accessory muscle use. ABD: Abdomen soft, non-tender, nondistended. EXT: No cyanosis, or edema. Results - Labs CBC & Chem 7: 01/07/18 08:55 12/25/17 22:10 Assessment and Plan - Assessment (1) Altered mental status Code(s): R41.82 - Altered mental status, unspecified Status: Acute Plan: (1) Altered mental status - The patient is a 52 year old female with past medical history which includes Abnormal LFTs, EtOH abuse, chronic back pain, COPD, hypertension, SVT. Patient was brought to [facility] on 12/13 by friend for confusion x 2 weeks weakness and flu like symptoms. Patient was admitted to [facility] from 12/13/17 to 12/18/17 treated for metabolic encephalopathy related to UTI and then DC'd to [facility]. Patient was seen in the emergency department related to altered mentation and anemia . The patient at that time was had hemoglobin of 9.3 and her rectal examination was negative for blood. She was deemed safe for discharge with follow-up as an outpatient. Patient again presented to the ER 12/25/17 for increased altered mentation [facility] The patient has a baseline history of altered mentation that is thought to be related to her history of alcohol abuse and Wernicke's encephalopathy. - CT head negative - CXR reviewed the lungs are clear - UA does not indicate UTI, no culture indicated - Patient has ETOH abuse - [facility] protocol - Cont. folic acid and thiamine - Ammonia level 15 - TSH 3.710 - RPR nonreactive - EtOH use and review of prior records patient had been drinking 1.5-2 bottles of wine a day and had been decreasing intake. Patient has recently been admitted to [facility] possibility of EtOH withdrawal causing altered mental status. - PT evaluated - Appreciate Psych evaluation. They did not feel that the patient met criteria for involuntary psychiatric admission. It was felt that the pt may benefit from comprehensive inpatient/outpatient alcohol rehabilitation program. - Supportive care - DC order placed on 12/27/17- case management working on safe DC - CM has enlisted help from Adult Protective Services. No progress has been made to obtain an accepting facility. - Psychiatry re-evaluated 01/08/18- patient does not meet inpatient psych admission criteria - Re-consulted psych for competency evaluation, and they declared pt not competent to make her own medical decisions. - [place] [employer] assisting with Medicaid disability application and discharge planning. Discussed with CM on 02/17/18 and pts medicaid application at this point has not been approved so awaiting approval to try to find placement. - Discussed with RN. - Awaiting safe DC arrangements - 02/10/18 increase Seroquel to 100 mg PO QHS - continue current treatment plan. - awaiting placement arrangements. (2) Anemia - On admission hgb 7.8, Hct 23.7, MCV 105.1 - 12/27/2017 hemoglobin improved 8.4 - 01/07/18 hemoglobin 10.3, Hct 31.2, MCV 101.9 - patient does have hx of ETOH abuse - B12 359 and folic acid 12.2 - Iron 48, total iron-binding capacity 183, percent saturation 26.2 - GI was consulted for possible EGD but unable to get consent so was recommended for outpt followup (3) Hypomagnesemia - magnesium 1.3 on admission - Pt was given replacement (4) Tachyarrhythmia - Pt with history of tachyarrhythmia - s/p EPS with ablation of AV re-entry node tachycardia Dr. Vazquez 2016 - Pt started on Metoprolol 25mg po BID with initial improvement in HR - increased metoprolol to 50mg BID on 01/11/18, HR stable (5) ETOH abuse - [facility] protocol - thiamine and folic acid - seizure precautions (6) COPD (chronic obstructive pulmonary disease) - Does not appear to be in acute exacerbation - duonebs if needed (7) HTN (hypertension) - Blood pressure was elevated during admission - Pt was initially started on amlodipine 5 mg p.o. daily but with tachyarrhythmia the Norvasc was stopped and Metoprolol added - BP has been stable. 02/22/18: No medical changes continue to await safe placement (2) Anemia Code(s): D64.9 - Anemia, unspecified Status: Chronic (3) Hypomagnesemia Code(s): E83.42 - Hypomagnesemia Status: Acute (4) Tachyarrhythmia Code(s): R00.0 - Tachycardia, unspecified Status: Chronic (5) ETOH abuse Code(s): F10.10 - Alcohol abuse, uncomplicated Status: Chronic (6) COPD (chronic obstructive pulmonary disease) Code(s): J44.9 - Chronic obstructive pulmonary disease, unspecified Status: Chronic (7) HTN (hypertension) Code(s): I10 - Essential (primary) hypertension Status: Chronic - Plan Discharge Planning: Patient examined. Assessment and plan formulated with Betsy Newman PA-C. I agree with the above. (2) Anemia Qualifiers: Anemia type: unspecified type Qualified Code(s): D64.9 - Anemia, unspecified
[2018-02-22] MEDS: QUEtiapine 25 MG Tablet PO SCH (21:37)
[2018-02-23] MEDS: Senna/Docusate Sodium 8.6/50 MG Tablet PO SCH ×2 (09:50→20:49)
[2018-02-23] MEDS: Metoprolol Tartrate 50 MG Tablet PO SCH ×2 (09:50→20:49)
--- NOTE | 2018-02-23 14:39 | P.PNIM ---
Subjective Interval history: No new issues reported by nursing staff Pt continues to be pleasantly confused. No complaints from the patient. Physical Exam Vital signs: Vital Signs 02/22/18 20:00 02/22/18 20:41 02/23/18 08:00 Temperature 98.0 F 97.8 F Pulse Rate 77 78 Respiratory Rate 18 20 Blood Pressure 94/73 L 111/76 Pulse Oximetry 98 98 99 Intake & Output 02/22/18 02/23/18 02/23/18 18:59 06:59 18:59 Intake Total 480 / 480 720 / 720 Balance 480 / 480 720 / 720 Intake: Oral 480 / 480 720 / 720 Other: # Voids 4 3 Date of Last Bowel Movement 02/20/18 02/20/18 Narrative: GENERAL: NAD, pleasantly confused oriented to self only NECK: Supple, trachea midline. CARDIO: Regular rate and rhythm RESP: Breath sounds equal bilaterally. No accessory muscle use. ABD: Abdomen soft, non-tender, nondistended. EXT: No cyanosis, or edema. Results - Labs CBC & Chem 7: 01/07/18 08:55 12/25/17 22:10 Assessment and Plan - Assessment (1) Altered mental status Code(s): R41.82 - Altered mental status, unspecified Status: Acute Plan: (1) Altered mental status - The patient is a 52 year old female with past medical history which includes Abnormal LFTs, EtOH abuse, chronic back pain, COPD, hypertension, SVT. Patient was brought to [facility] on 12/13 by friend for confusion x 2 weeks weakness and flu like symptoms. Patient was admitted to [facility] from 12/13/17 to 12/18/17 treated for metabolic encephalopathy related to UTI and then DC'd to [facility]. Patient was seen in the emergency department related to altered mentation and anemia . The patient at that time was had hemoglobin of 9.3 and her rectal examination was negative for blood. She was deemed safe for discharge with follow-up as an outpatient. Patient again presented to the ER 12/25/17 for increased altered mentation since [facility] at approximately 8 :15 AM 12/25. The patient has a baseline history of altered mentation that is thought to be related to her history of alcohol abuse and Wernicke's encephalopathy. - CT head negative - CXR reviewed the lungs are clear - UA does not indicate UTI, no culture indicated - Patient has ETOH abuse - [facility] protocol - Cont. folic acid and thiamine - Ammonia level 15 - TSH 3.710 - RPR nonreactive - EtOH use and review of prior records patient had been drinking 1.5-2 bottles of wine a day and had been decreasing intake. Patient has recently been admitted to [facility] possibility of EtOH withdrawal causing altered mental status. - PT evaluated - Appreciate Psych evaluation. They did not feel that the patient met criteria for involuntary psychiatric admission. It was felt that the pt may benefit from comprehensive inpatient/outpatient alcohol rehabilitation program. - Supportive care - DC order placed on 12/27/17- case management working on safe DC - CM has enlisted help from Adult Protective Services. No progress has been made to obtain an accepting facility. - Psychiatry re-evaluated 01/08/18- patient does not meet inpatient psych admission criteria - Re-consulted psych for competency evaluation, and they declared pt not competent to make her own medical decisions. - [place] [employer] assisting with Medicaid disability application and discharge planning. Discussed with CM on 02/17/18 and pts medicaid application at this point has not been approved so awaiting approval to try to find placement. - Discussed with RN. - Awaiting safe DC arrangements - 02/10/18 increase Seroquel to 100 mg PO QHS (2) Anemia - On admission hgb 7.8, Hct 23.7, MCV 105.1 - 12/27/2017 hemoglobin improved 8.4 - 01/07/18 hemoglobin 10.3, Hct 31.2, MCV 101.9 - patient does have hx of ETOH abuse - B12 359 and folic acid 12.2 - Iron 48, total iron-binding capacity 183, percent saturation 26.2 - GI was consulted for possible EGD but unable to get consent so was recommended for outpt followup (3) Hypomagnesemia - magnesium 1.3 on admission - Pt was given replacement (4) Tachyarrhythmia - Pt with history of tachyarrhythmia - s/p EPS with ablation of AV re-entry node tachycardia Dr. Vazquez 2016 - Pt started on Metoprolol 25mg po BID with initial improvement in HR - increased metoprolol to 50mg BID on 01/11/18, HR stable (5) ETOH abuse - [facility] protocol - thiamine and folic acid - seizure precautions (6) COPD (chronic obstructive pulmonary disease) - Does not appear to be in acute exacerbation - duonebs if needed (7) HTN (hypertension) - Blood pressure was elevated during admission - Pt was initially started on amlodipine 5 mg p.o. daily but with tachyarrhythmia the Norvasc was stopped and Metoprolol added - BP has been stable. (2) Anemia Code(s): D64.9 - Anemia, unspecified Status: Chronic (3) Hypomagnesemia Code(s): E83.42 - Hypomagnesemia Status: Acute (4) Tachyarrhythmia Code(s): R00.0 - Tachycardia, unspecified Status: Chronic (5) ETOH abuse Code(s): F10.10 - Alcohol abuse, uncomplicated Status: Chronic (6) COPD (chronic obstructive pulmonary disease) Code(s): J44.9 - Chronic obstructive pulmonary disease, unspecified Status: Chronic (7) HTN (hypertension) Code(s): I10 - Essential (primary) hypertension Status: Chronic - Attending Attestation Patient examined. Assessment and plan formulated with Deirdre Olmstead PA-C. I agree with the above. (2) Anemia Qualifiers: Anemia type: unspecified type Qualified Code(s): D64.9 - Anemia, unspecified
[2018-02-23] MEDS: QUEtiapine 25 MG Tablet PO SCH (20:48)
[2018-02-24] MEDS: Senna/Docusate Sodium 8.6/50 MG Tablet PO SCH ×2 (09:16→20:25)
[2018-02-24] MEDS: Metoprolol Tartrate 50 MG Tablet PO SCH ×2 (09:16→20:25)
--- NOTE | 2018-02-24 09:56 | P.PNIM ---
Subjective Interval history: No new issues overnight No complaints from the patients Physical Exam Vital signs: Vital Signs 02/23/18 20:00 02/24/18 08:00 Temperature 98 F 97.8 F Pulse Rate 69 65 Respiratory Rate 18 20 Blood Pressure 95/54 L 104/62 Pulse Oximetry 99 98 Intake & Output 02/23/18 02/24/18 02/24/18 18:59 06:59 18:59 Intake Total 720 / 720 Balance 720 / 720 Intake: Oral 720 / 720 Other: # Voids 2 Narrative: GENERAL: NAD, pleasantly confused oriented to self only NECK: Supple, trachea midline. CARDIO: Regular rate and rhythm RESP: Breath sounds equal bilaterally. No accessory muscle use. ABD: Abdomen soft, non-tender, nondistended. EXT: No cyanosis, or edema. Results - Labs CBC & Chem 7: 01/07/18 08:55 12/25/17 22:10 Assessment and Plan - Assessment (1) Altered mental status Code(s): R41.82 - Altered mental status, unspecified Status: Acute Plan: (1) Altered mental status - The patient is a 52 year old female with past medical history which includes Abnormal LFTs, EtOH abuse, chronic back pain, COPD, hypertension, SVT. Patient was brought to [facility] on 12/13 by friend for confusion x 2 weeks weakness and flu like symptoms. Patient was admitted to [facility] from 12/13/17 to 12/18/17 treated for metabolic encephalopathy related to UTI and then DC'd to [facility]. Patient was seen in the emergency department related to altered mentation and anemia . The patient at that time was had hemoglobin of 9.3 and her rectal examination was negative for blood. She was deemed safe for discharge with follow-up as an outpatient. Patient again presented to the ER 12/25/17 for increased altered mentation since falling at her residential at approximately 8 :15 AM 12/25. The patient has a baseline history of altered mentation that is thought to be related to her history of alcohol abuse and Wernicke's encephalopathy. - CT head negative - CXR reviewed the lungs are clear - UA does not indicate UTI, no culture indicated - Patient has ETOH abuse - [facility] protocol - Cont. folic acid and thiamine - Ammonia level 15 - TSH 3.710 - RPR nonreactive - EtOH use and review of prior records patient had been drinking 1.5-2 bottles of wine a day and had been decreasing intake. Patient has recently been admitted to [facility] possibility of EtOH withdrawal causing altered mental status. - PT evaluated - Appreciate Psych evaluation. They did not feel that the patient met criteria for involuntary psychiatric admission. It was felt that the pt may benefit from comprehensive inpatient/outpatient alcohol rehabilitation program. - Supportive care - DC order placed on 12/27/17- case management working on safe DC - CM has enlisted help from Adult Protective Services. No progress has been made to obtain an accepting facility. - Psychiatry re-evaluated 01/08/18- patient does not meet inpatient psych admission criteria - Re-consulted psych for competency evaluation, and they declared pt not competent to make her own medical decisions. - [place] [employer] assisting with Medicaid disability application and discharge planning. Discussed with CM on 02/17/18 and pts medicaid application at this point has not been approved so awaiting approval to try to find placement. - Discussed with RN. - Awaiting safe DC arrangements - 02/10/18 increase Seroquel to 100 mg PO QHS (2) Anemia - On admission hgb 7.8, Hct 23.7, MCV 105.1 - 12/27/2017 hemoglobin improved 8.4 - 01/07/18 hemoglobin 10.3, Hct 31.2, MCV 101.9 - patient does have hx of ETOH abuse - B12 359 and folic acid 12.2 - Iron 48, total iron-binding capacity 183, percent saturation 26.2 - GI was consulted for possible EGD but unable to get consent so was recommended for outpt followup (3) Hypomagnesemia - magnesium 1.3 on admission - Pt was given replacement (4) Tachyarrhythmia - Pt with history of tachyarrhythmia - s/p EPS with ablation of AV re-entry node tachycardia Dr. Vazquez 2016 - Pt started on Metoprolol 25mg po BID with initial improvement in HR - increased metoprolol to 50mg BID on 01/11/18, HR stable (5) ETOH abuse - [facility] protocol - thiamine and folic acid - seizure precautions (6) COPD (chronic obstructive pulmonary disease) - Does not appear to be in acute exacerbation - duonebs if needed (7) HTN (hypertension) - Blood pressure was elevated during admission - Pt was initially started on amlodipine 5 mg p.o. daily but with tachyarrhythmia the Norvasc was stopped and Metoprolol added - BP has been stable. (2) Anemia Code(s): D64.9 - Anemia, unspecified Status: Chronic (3) Hypomagnesemia Code(s): E83.42 - Hypomagnesemia Status: Acute (4) Tachyarrhythmia Code(s): R00.0 - Tachycardia, unspecified Status: Chronic (5) ETOH abuse Code(s): F10.10 - Alcohol abuse, uncomplicated Status: Chronic (6) COPD (chronic obstructive pulmonary disease) Code(s): J44.9 - Chronic obstructive pulmonary disease, unspecified Status: Chronic (7) HTN (hypertension) Code(s): I10 - Essential (primary) hypertension Status: Chronic - Attending Attestation Patient examined. Assessment and plan formulated with Deirdre Olmstead PA-C. I agree with the above. (2) Anemia Qualifiers: Anemia type: unspecified type Qualified Code(s): D64.9 - Anemia, unspecified
[2018-02-24] MEDS: QUEtiapine 25 MG Tablet PO SCH (20:25)
[2018-02-25] MEDS: Senna/Docusate Sodium 8.6/50 MG Tablet PO SCH ×2 (08:24→21:01)
[2018-02-25] MEDS: Metoprolol Tartrate 50 MG Tablet PO SCH ×2 (08:24→21:01)
--- NOTE | 2018-02-25 09:52 | P.PNIM ---
Subjective Interval history: no overnight issues Physical Exam Vital signs: Vital Signs 02/24/18 20:00 02/25/18 08:00 Temperature 98.1 F 97.9 F Pulse Rate 71 63 Respiratory Rate 16 19 Blood Pressure 107/59 L 100/70 Pulse Oximetry 97 97 Intake & Output 02/24/18 02/25/18 02/25/18 18:59 06:59 18:59 Intake Total 480 / 480 420 / 420 Balance 480 / 480 420 / 420 Weight 54.2 kg Intake: Oral 480 / 480 420 / 420 Other: # Voids 3 3 nad heart reg lung cta abd s/nt ext no edema Results - Labs CBC & Chem 7: 01/07/18 08:55 12/25/17 22:10 Assessment and Plan - Assessment (1) Altered mental status Code(s): R41.82 - Altered mental status, unspecified Status: Acute Plan: (1) Altered mental status - The patient is a 52 year old female with past medical history which includes Abnormal LFTs, EtOH abuse, chronic back pain, COPD, hypertension, SVT. Patient was brought to [facility] on 12/13 by friend for confusion x 2 weeks weakness and flu like symptoms. Patient was admitted to [facility] from 12/13/17 to 12/18/17 treated for metabolic encephalopathy related to UTI and then DC'd to [facility]. Patient was seen in the emergency department related to altered mentation and anemia . The patient at that time was had hemoglobin of 9.3 and her rectal examination was negative for blood. She was deemed safe for discharge with follow-up as an outpatient. Patient again presented to the ER 12/25/17 for increased altered mentation since [facility]15 [facility]. The patient has a baseline history of altered mentation that is thought to be related to her history of alcohol abuse and Wernicke's encephalopathy. - CT head negative - CXR reviewed the lungs are clear - UA does not indicate UTI, no culture indicated - Patient has ETOH abuse - [facility] protocol - Cont. folic acid and thiamine - Ammonia level 15 - TSH 3.710 - RPR nonreactive - EtOH use and review of prior records patient had been drinking 1.5-2 bottles of wine a day and had been decreasing intake. Patient has recently been admitted to [facility] possibility of EtOH withdrawal causing altered mental status. - PT evaluated - Appreciate Psych evaluation. They did not feel that the patient met criteria for involuntary psychiatric admission. It was felt that the pt may benefit from comprehensive inpatient/outpatient alcohol rehabilitation program. - Supportive care - DC order placed on 12/27/17- case management working on safe DC - CM has enlisted help from Adult Protective Services. No progress has been made to obtain an accepting facility. - Psychiatry re-evaluated 01/08/18- patient does not meet inpatient psych admission criteria - Re-consulted psych for competency evaluation, and they declared pt not competent to make her own medical decisions. - [place] [employer] assisting with Medicaid disability application and discharge planning. Discussed with CM on 02/17/18 and pts medicaid application at this point has not been approved so awaiting approval to try to find placement. - Discussed with RN. - Awaiting safe DC arrangements - 02/10/18 increase Seroquel to 100 mg PO QHS cont current rx. await placement. (2) Anemia - On admission hgb 7.8, Hct 23.7, MCV 105.1 - 12/27/2017 hemoglobin improved 8.4 - 01/07/18 hemoglobin 10.3, Hct 31.2, MCV 101.9 - patient does have hx of ETOH abuse - B12 359 and folic acid 12.2 - Iron 48, total iron-binding capacity 183, percent saturation 26.2 - GI was consulted for possible EGD but unable to get consent so was recommended for outpt followup (3) Hypomagnesemia - magnesium 1.3 on admission - Pt was given replacement (4) Tachyarrhythmia - Pt with history of tachyarrhythmia - s/p EPS with ablation of AV re-entry node tachycardia Dr. Vazquez 2016 - Pt started on Metoprolol 25mg po BID with initial improvement in HR - increased metoprolol to 50mg BID on 01/11/18, HR stable (5) ETOH abuse - [facility] protocol - thiamine and folic acid - seizure precautions (6) COPD (chronic obstructive pulmonary disease) - Does not appear to be in acute exacerbation - duonebs if needed (7) HTN (hypertension) - Blood pressure was elevated during admission - Pt was initially started on amlodipine 5 mg p.o. daily but with tachyarrhythmia the Norvasc was stopped and Metoprolol added - BP has been stable.
[2018-02-25] MEDS: QUEtiapine 25 MG Tablet PO SCH (21:01)
[2018-02-26] MEDS: Senna/Docusate Sodium 8.6/50 MG Tablet PO SCH ×2 (08:13→20:27)
[2018-02-26] MEDS: Metoprolol Tartrate 50 MG Tablet PO SCH ×2 (08:13→20:27)
--- NOTE | 2018-02-26 09:09 | P.PNIM ---
Subjective Interval history: no new events Physical Exam Vital signs: Vital Signs 02/25/18 20:00 Temperature 98.1 F Pulse Rate 69 Respiratory Rate 18 Blood Pressure 98/58 L Pulse Oximetry 97 Intake & Output 02/25/18 02/26/18 02/26/18 18:59 06:59 18:59 Intake Total 240 / 240 Output Total 2 / 2 Balance 238 / 238 Weight 54.9 kg Intake: Oral 240 / 240 Output: Urine 2 / 2 Other: # Bowel Movements 0 heart reg lung cta abd s/nt ext no edema Results - Labs CBC & Chem 7: 01/07/18 08:55 12/25/17 22:10 Assessment and Plan - Assessment (1) Altered mental status Code(s): R41.82 - Altered mental status, unspecified Status: Acute Plan: (1) Altered mental status - The patient is a 52 year old female with past medical history which includes Abnormal LFTs, EtOH abuse, chronic back pain, COPD, hypertension, SVT. Patient was brought to [facility] on 12/13 by friend for confusion x 2 weeks weakness and flu like symptoms. Patient was admitted to [facility] from 12/13/17 to 12/18/17 treated for metabolic encephalopathy related to UTI and then DC'd to [facility]. Patient was seen in the emergency department related to altered mentation and anemia . The patient at that time was had hemoglobin of 9.3 and her rectal examination was negative for blood. She was deemed safe for discharge with follow-up as an outpatient. Patient again presented to the ER 12/25/17 for increased altered mentation since falling at her [facility] at approximately 8 :15 AM 12/25. The patient has a baseline history of altered mentation that is thought to be related to her history of alcohol abuse and Wernicke's encephalopathy. - CT head negative - CXR reviewed the lungs are clear - UA does not indicate UTI, no culture indicated - Patient has ETOH abuse - [facility] protocol - Cont. folic acid and thiamine - Ammonia level 15 - TSH 3.710 - RPR nonreactive - EtOH use and review of prior records patient had been drinking 1.5-2 bottles of wine a day and had been decreasing intake. Patient has recently been admitted to [facility] possibility of EtOH withdrawal causing altered mental status. - PT evaluated - Appreciate Psych evaluation. They did not feel that the patient met criteria for involuntary psychiatric admission. It was felt that the pt may benefit from comprehensive inpatient/outpatient alcohol rehabilitation program. - Supportive care - DC order placed on 12/27/17- case management working on safe DC - CM has enlisted help from Adult Protective Services. No progress has been made to obtain an accepting facility. - Psychiatry re-evaluated 01/08/18- patient does not meet inpatient psych admission criteria - Re-consulted psych for competency evaluation, and they declared pt not competent to make her own medical decisions. - [place] [employer] assisting with Medicaid disability application and discharge planning. Discussed with CM on 02/17/18 and pts medicaid application at this point has not been approved so awaiting approval to try to find placement. - Discussed with RN. - Awaiting safe DC arrangements - 02/10/18 increase Seroquel to 100 mg PO QHS cont current rx plan (2) Anemia - On admission hgb 7.8, Hct 23.7, MCV 105.1 - 12/27/2017 hemoglobin improved 8.4 - 01/07/18 hemoglobin 10.3, Hct 31.2, MCV 101.9 - patient does have hx of ETOH abuse - B12 359 and folic acid 12.2 - Iron 48, total iron-binding capacity 183, percent saturation 26.2 - GI was consulted for possible EGD but unable to get consent so was recommended for outpt followup (3) Hypomagnesemia - magnesium 1.3 on admission - Pt was given replacement (4) Tachyarrhythmia - Pt with history of tachyarrhythmia - s/p EPS with ablation of AV re-entry node tachycardia Dr. Vazquez 2016 - Pt started on Metoprolol 25mg po BID with initial improvement in HR - increased metoprolol to 50mg BID on 01/11/18, HR stable (5) ETOH abuse - [facility] protocol - thiamine and folic acid - seizure precautions (6) COPD (chronic obstructive pulmonary disease) - Does not appear to be in acute exacerbation - duonebs if needed (7) HTN (hypertension) - Blood pressure was elevated during admission - Pt was initially started on amlodipine 5 mg p.o. daily but with tachyarrhythmia the Norvasc was stopped and Metoprolol added - BP has been stable.
[2018-02-26] MEDS: QUEtiapine 25 MG Tablet PO SCH (20:27)
[2018-02-27] MEDS: Senna/Docusate Sodium 8.6/50 MG Tablet PO SCH ×2 (09:35→20:40)
[2018-02-27] MEDS: Metoprolol Tartrate 50 MG Tablet PO SCH ×2 (09:35→20:40)
--- NOTE | 2018-02-27 11:22 | P.PNIM ---
Subjective Interval history: pt on couch looking out window. nad Physical Exam Vital signs: Vital Signs 02/26/18 20:00 02/27/18 08:00 Temperature 97.9 F 97.9 F Pulse Rate 75 64 Respiratory Rate 16 18 Blood Pressure 88/54 L 110/68 Pulse Oximetry 98 98 Intake & Output 02/26/18 02/27/18 02/27/18 18:59 06:59 18:59 Intake Total 120 / 120 Balance 120 / 120 Weight 55.9 kg Intake: Oral 120 / 120 Other: # Voids 2 Date of Last Bowel Movement 02/26/18 # Bowel Movements 0 heart reg lung cta abd s/nt ext no edema Results - Labs CBC & Chem 7: 01/07/18 08:55 12/25/17 22:10 Assessment and Plan - Assessment (1) Altered mental status Code(s): R41.82 - Altered mental status, unspecified Status: Acute Plan: (1) Altered mental status - The patient is a 52 year old female with past medical history which includes Abnormal LFTs, EtOH abuse, chronic back pain, COPD, hypertension, SVT. Patient was brought to [facility] on 12/13 by friend for confusion x 2 weeks weakness and flu like symptoms. Patient was admitted to [facility] from 12/13/17 to 12/18/17 treated for metabolic encephalopathy related to UTI and then DC'd to [facility]. Patient was seen in the emergency department related to altered mentation and anemia . The patient at that time was had hemoglobin of 9.3 and her rectal examination was negative for blood. She was deemed safe for discharge with follow-up as an outpatient. Patient again presented to the ER 12/25/17 for increased altered mentation since falling at her half-way at approximately 8 :15 AM 12/25. The patient has a baseline history of altered mentation that is thought to be related to her history of alcohol abuse and Wernicke's encephalopathy. - CT head negative - CXR reviewed the lungs are clear - UA does not indicate UTI, no culture indicated - Patient has ETOH abuse - [facility] protocol - Cont. folic acid and thiamine - Ammonia level 15 - TSH 3.710 - RPR nonreactive - EtOH use and review of prior records patient had been drinking 1.5-2 bottles of wine a day and had been decreasing intake. Patient has recently been admitted to [facility] possibility of EtOH withdrawal causing altered mental status. - PT evaluated - Appreciate Psych evaluation. They did not feel that the patient met criteria for involuntary psychiatric admission. It was felt that the pt may benefit from comprehensive inpatient/outpatient alcohol rehabilitation program. - Supportive care - DC order placed on 12/27/17- case management working on safe DC - CM has enlisted help from Adult Protective Services. No progress has been made to obtain an accepting facility. - Psychiatry re-evaluated 01/08/18- patient does not meet inpatient psych admission criteria - Re-consulted psych for competency evaluation, and they declared pt not competent to make her own medical decisions. - [place] [employer] assisting with Medicaid disability application and discharge planning. Discussed with CM on 02/17/18 and pts medicaid application at this point has not been approved so awaiting approval to try to find placement. - Discussed with RN. - Awaiting safe DC arrangements - 02/10/18 increase Seroquel to 100 mg PO QHS cont current rx plan. discussed with nurse position classification manager. no placement plan as of now. (2) Anemia - On admission hgb 7.8, Hct 23.7, MCV 105.1 - 12/27/2017 hemoglobin improved 8.4 - 01/07/18 hemoglobin 10.3, Hct 31.2, MCV 101.9 - patient does have hx of ETOH abuse - B12 359 and folic acid 12.2 - Iron 48, total iron-binding capacity 183, percent saturation 26.2 - GI was consulted for possible EGD but unable to get consent so was recommended for outpt followup (3) Hypomagnesemia - magnesium 1.3 on admission - Pt was given replacement (4) Tachyarrhythmia - Pt with history of tachyarrhythmia - s/p EPS with ablation of AV re-entry node tachycardia Dr. Vazquez 2016 - Pt started on Metoprolol 25mg po BID with initial improvement in HR - increased metoprolol to 50mg BID on 01/11/18, HR stable (5) ETOH abuse - [facility] protocol - thiamine and folic acid - seizure precautions (6) COPD (chronic obstructive pulmonary disease) - Does not appear to be in acute exacerbation - duonebs if needed (7) HTN (hypertension) - Blood pressure was elevated during admission - Pt was initially started on amlodipine 5 mg p.o. daily but with tachyarrhythmia the Norvasc was stopped and Metoprolol added - BP has been stable.
[2018-02-27] MEDS: QUEtiapine 25 MG Tablet PO SCH (20:40)
[2018-02-28] MEDS: Metoprolol Tartrate 50 MG Tablet PO SCH ×2 (08:28→20:47)
[2018-02-28] MEDS: Senna/Docusate Sodium 8.6/50 MG Tablet PO SCH ×2 (08:28→20:47)
--- NOTE | 2018-02-28 09:51 | P.PNIM ---
Subjective Interval history: no events. Physical Exam Vital signs: Vital Signs 02/27/18 20:00 02/28/18 08:00 Temperature 98.1 F 97.3 F L Pulse Rate 70 74 Respiratory Rate 18 17 Blood Pressure 93/56 L 102/74 Pulse Oximetry 96 96 Intake & Output 02/27/18 02/28/18 02/28/18 18:59 06:59 18:59 Intake Total 500 / 500 Balance 500 / 500 Weight 55.5 kg Intake: Oral 500 / 500 Other: Date of Last Bowel Movement 02/26/18 02/27/18 heent neg heart reg lung cta abd s/nt ext no edema Results - Labs CBC & Chem 7: 01/07/18 08:55 12/25/17 22:10 Assessment and Plan - Assessment (1) Altered mental status Code(s): R41.82 - Altered mental status, unspecified Status: Acute Plan: (1) Altered mental status - The patient is a 52 year old female with past medical history which includes Abnormal LFTs, EtOH abuse, chronic back pain, COPD, hypertension, SVT. Patient was brought to [facility] on 12/13 by friend for confusion x 2 weeks weakness and flu like symptoms. Patient was admitted to [facility] from 12/13/17 to 12/18/17 treated for metabolic encephalopathy related to UTI and then DC'd to [facility]. Patient was seen in the emergency department related to altered mentation and anemia . The patient at that time was had hemoglobin of 9.3 and her rectal examination was negative for blood. She was deemed safe for discharge with follow-up as an outpatient. Patient again presented to the ER 12/25/17 for increased altered mentation since falling at her group home at approximately 8 :15 AM 12/25. The patient has a baseline history of altered mentation that is thought to be related to her history of alcohol abuse and Wernicke's encephalopathy. - CT head negative - CXR reviewed the lungs are clear - UA does not indicate UTI, no culture indicated - Patient has ETOH abuse - [facility] protocol - Cont. folic acid and thiamine - Ammonia level 15 - TSH 3.710 - RPR nonreactive - EtOH use and review of prior records patient had been drinking 1.5-2 bottles of wine a day and had been decreasing intake. Patient has recently been admitted to [facility] possibility of EtOH withdrawal causing altered mental status. - PT evaluated - Appreciate Psych evaluation. They did not feel that the patient met criteria for involuntary psychiatric admission. It was felt that the pt may benefit from comprehensive inpatient/outpatient alcohol rehabilitation program. - Supportive care - DC order placed on 12/27/17- case management working on safe DC - CM has enlisted help from Adult Protective Services. No progress has been made to obtain an accepting facility. - Psychiatry re-evaluated 01/08/18- patient does not meet inpatient psych admission criteria - Re-consulted psych for competency evaluation, and they declared pt not competent to make her own medical decisions. - [place] Case [employer] assisting with Medicaid disability application and discharge planning. Discussed with CM on 02/17/18 and pts medicaid application at this point has not been approved so awaiting approval to try to find placement. - Discussed with RN. - Awaiting safe DC arrangements - 02/10/18 increase Seroquel to 100 mg PO QHS cont current rx plan. no placement plan as of now. (2) Anemia - On admission hgb 7.8, Hct 23.7, MCV 105.1 - 12/27/2017 hemoglobin improved 8.4 - 01/07/18 hemoglobin 10.3, Hct 31.2, MCV 101.9 - patient does have hx of ETOH abuse - B12 359 and folic acid 12.2 - Iron 48, total iron-binding capacity 183, percent saturation 26.2 - GI was consulted for possible EGD but unable to get consent so was recommended for outpt followup (3) Hypomagnesemia - magnesium 1.3 on admission - Pt was given replacement (4) Tachyarrhythmia - Pt with history of tachyarrhythmia - s/p EPS with ablation of AV re-entry node tachycardia Dr. Vazquez 2016 - Pt started on Metoprolol 25mg po BID with initial improvement in HR - increased metoprolol to 50mg BID on 01/11/18, HR stable (5) ETOH abuse - [facility] protocol - thiamine and folic acid - seizure precautions (6) COPD (chronic obstructive pulmonary disease) - Does not appear to be in acute exacerbation - duonebs if needed (7) HTN (hypertension) - Blood pressure was elevated during admission - Pt was initially started on amlodipine 5 mg p.o. daily but with tachyarrhythmia the Norvasc was stopped and Metoprolol added - BP has been stable.
[2018-02-28] MEDS: QUEtiapine 25 MG Tablet PO SCH (20:47)
[2018-03-01] MEDS: Senna/Docusate Sodium 8.6/50 MG Tablet PO SCH ×2 (09:14→21:06)
[2018-03-01] MEDS: Metoprolol Tartrate 50 MG Tablet PO SCH ×2 (09:14→21:05)
--- NOTE | 2018-03-01 09:59 | P.PNIM ---
Subjective Interval history: no new events. Physical Exam Vital signs: Vital Signs 02/28/18 20:00 03/01/18 08:00 Temperature 98 F 97.6 F Pulse Rate 69 70 Respiratory Rate 16 16 Blood Pressure 96/62 L 104/59 L Pulse Oximetry 98 99 Intake & Output 02/28/18 03/01/18 03/01/18 18:59 06:59 18:59 Intake Total 720 / 720 480 / 480 Balance 720 / 720 480 / 480 Weight 53.9 kg Intake: Oral 720 / 720 480 / 480 Other: # Voids 3 3 Date of Last Bowel Movement 02/27/18 # Bowel Movements 0 0 heart reg lung cta abd s/nt ext no edema Results - Labs CBC & Chem 7: 01/07/18 08:55 12/25/17 22:10 Assessment and Plan - Assessment (1) Altered mental status Code(s): R41.82 - Altered mental status, unspecified Status: Acute Plan: (1) Altered mental status - The patient is a 52 year old female with past medical history which includes Abnormal LFTs, EtOH abuse, chronic back pain, COPD, hypertension, SVT. Patient was brought to [facility] on 12/13 by friend for confusion x 2 weeks weakness and flu like symptoms. Patient was admitted to [facility] from 12/13/17 to 12/18/17 treated for metabolic encephalopathy related to UTI and then DC'd to [facility]. Patient was seen in the emergency department related to altered mentation and anemia . The patient at that time was had hemoglobin of 9.3 and her rectal examination was negative for blood. She was deemed safe for discharge with follow-up as an outpatient. Patient again presented to the ER 12/25/17 for increased altered mentation since [facility] at approximately 8 :15 AM 12/25. The patient has a baseline history of altered mentation that is thought to be related to her history of alcohol abuse and Wernicke's encephalopathy. - CT head negative - CXR reviewed the lungs are clear - UA does not indicate UTI, no culture indicated - Patient has ETOH abuse - [facility] protocol - Cont. folic acid and thiamine - Ammonia level 15 - TSH 3.710 - RPR nonreactive - EtOH use and review of prior records patient had been drinking 1.5-2 bottles of wine a day and had been decreasing intake. Patient has recently been admitted to [facility] nursing [facility] possibility of EtOH withdrawal causing altered mental status. - PT evaluated - Appreciate Psych evaluation. They did not feel that the patient met criteria for involuntary psychiatric admission. It was felt that the pt may benefit from comprehensive inpatient/outpatient alcohol rehabilitation program. - Supportive care - DC order placed on 12/27/17- case management working on safe DC - CM has enlisted help from Adult Protective Services. No progress has been made to obtain an accepting facility. - Psychiatry re-evaluated 01/08/18- patient does not meet inpatient psych admission criteria - Re-consulted psych for competency evaluation, and they declared pt not competent to make her own medical decisions. - [place] [employer] assisting with Medicaid disability application and discharge planning. Discussed with CM on 02/17/18 and pts medicaid application at this point has not been approved so awaiting approval to try to find placement. - Discussed with RN. - Awaiting safe DC arrangements - 02/10/18 increase Seroquel to 100 mg PO QHS cont rx plan. no placement plan as of now. (2) Anemia - On admission hgb 7.8, Hct 23.7, MCV 105.1 - 12/27/2017 hemoglobin improved 8.4 - 01/07/18 hemoglobin 10.3, Hct 31.2, MCV 101.9 - patient does have hx of ETOH abuse - B12 359 and folic acid 12.2 - Iron 48, total iron-binding capacity 183, percent saturation 26.2 - GI was consulted for possible EGD but unable to get consent so was recommended for outpt followup (3) Hypomagnesemia - magnesium 1.3 on admission - Pt was given replacement (4) Tachyarrhythmia - Pt with history of tachyarrhythmia - s/p EPS with ablation of AV re-entry node tachycardia Dr. Vazquez 2016 - Pt started on Metoprolol 25mg po BID with initial improvement in HR - increased metoprolol to 50mg BID on 01/11/18, HR stable (5) ETOH abuse - [facility] protocol - thiamine and folic acid - seizure precautions (6) COPD (chronic obstructive pulmonary disease) - Does not appear to be in acute exacerbation - duonebs if needed (7) HTN (hypertension) - Blood pressure was elevated during admission - Pt was initially started on amlodipine 5 mg p.o. daily but with tachyarrhythmia the Norvasc was stopped and Metoprolol added - BP has been stable.
[2018-03-01] MEDS: QUEtiapine 25 MG Tablet PO SCH (21:05)
[2018-03-02] MEDS: Metoprolol Tartrate 50 MG Tablet PO SCH ×2 (08:11→20:21)
[2018-03-02] MEDS: Senna/Docusate Sodium 8.6/50 MG Tablet PO SCH ×2 (08:11→20:21)
--- NOTE | 2018-03-02 09:39 | P.PNIM ---
Subjective Interval history: no events Physical Exam Vital signs: Vital Signs 03/01/18 20:00 03/02/18 05:49 Temperature 98.7 F 98.0 F Pulse Rate 69 67 Respiratory Rate 14 16 Blood Pressure 117/60 120/68 Pulse Oximetry 99 96 Intake & Output 03/01/18 03/02/18 03/02/18 18:59 06:59 18:59 Intake Total 840 / 840 Balance 840 / 840 Weight 53.9 kg Intake: Oral 840 / 840 Other: # Voids 3 Date of Last Bowel Movement 02/27/18 # Bowel Movements 0 heart reg lung cta abd s/nt ext no edema Results - Labs CBC & Chem 7: 01/07/18 08:55 12/25/17 22:10 Assessment and Plan - Assessment (1) Altered mental status Code(s): R41.82 - Altered mental status, unspecified Status: Acute Plan: (1) Altered mental status - The patient is a 52 year old female with past medical history which includes Abnormal LFTs, EtOH abuse, chronic back pain, COPD, hypertension, SVT. Patient was brought to [facility] on 12/13 by friend for confusion x 2 weeks weakness and flu like symptoms. Patient was admitted to [facility] from 12/13/17 to 12/18/17 treated for metabolic encephalopathy related to UTI and then DC'd to [facility]. Patient was seen in the emergency department related to altered mentation and anemia . The patient at that time was had hemoglobin of 9.3 and her rectal examination was negative for blood. She was deemed safe for discharge with follow-up as an outpatient. Patient again presented to the ER 12/25/17 for increased altered mentation since falling at her [facility] at approximately 8 :15 AM 12/25. The patient has a baseline history of altered mentation that is thought to be related to her history of alcohol abuse and Wernicke's encephalopathy. - CT head negative - CXR reviewed the lungs are clear - UA does not indicate UTI, no culture indicated - Patient has ETOH abuse - [facility] protocol - Cont. folic acid and thiamine - Ammonia level 15 - TSH 3.710 - RPR nonreactive - EtOH use and review of prior records patient had been drinking 1.5-2 bottles of wine a day and had been decreasing intake. Patient has recently been admitted to [facility] possibility of EtOH withdrawal causing altered mental status. - PT evaluated - Appreciate Psych evaluation. They did not feel that the patient met criteria for involuntary psychiatric admission. It was felt that the pt may benefit from comprehensive inpatient/outpatient alcohol rehabilitation program. - Supportive care - DC order placed on 12/27/17- case management working on safe DC - CM has enlisted help from Adult Protective Services. No progress has been made to obtain an accepting facility. - Psychiatry re-evaluated 01/08/18- patient does not meet inpatient psych admission criteria - Re-consulted psych for competency evaluation, and they declared pt not competent to make her own medical decisions. - [place] [employer] assisting with Medicaid disability application and discharge planning. Discussed with CM on 02/17/18 and pts medicaid application at this point has not been approved so awaiting approval to try to find placement. - Discussed with RN. - Awaiting safe DC arrangements - 02/10/18 increase Seroquel to 100 mg PO QHS cont rx plan. no placement plan as of now. (2) Anemia - On admission hgb 7.8, Hct 23.7, MCV 105.1 - 12/27/2017 hemoglobin improved 8.4 - 01/07/18 hemoglobin 10.3, Hct 31.2, MCV 101.9 - patient does have hx of ETOH abuse - B12 359 and folic acid 12.2 - Iron 48, total iron-binding capacity 183, percent saturation 26.2 - GI was consulted for possible EGD but unable to get consent so was recommended for outpt followup (3) Hypomagnesemia - magnesium 1.3 on admission - Pt was given replacement (4) Tachyarrhythmia - Pt with history of tachyarrhythmia - s/p EPS with ablation of AV re-entry node tachycardia Dr. Vazquez 2016 - Pt started on Metoprolol 25mg po BID with initial improvement in HR - increased metoprolol to 50mg BID on 01/11/18, HR stable (5) ETOH abuse - [facility] protocol - thiamine and folic acid - seizure precautions (6) COPD (chronic obstructive pulmonary disease) - Does not appear to be in acute exacerbation - duonebs if needed (7) HTN (hypertension) - Blood pressure was elevated during admission - Pt was initially started on amlodipine 5 mg p.o. daily but with tachyarrhythmia the Norvasc was stopped and Metoprolol added - BP has been stable.
[2018-03-02] MEDS: QUEtiapine 25 MG Tablet PO SCH (20:21)
[2018-03-03] MEDS: Senna/Docusate Sodium 8.6/50 MG Tablet PO SCH ×2 (08:25→20:54)
[2018-03-03] MEDS: Metoprolol Tartrate 50 MG Tablet PO SCH ×2 (08:25→20:54)
--- NOTE | 2018-03-03 09:08 | P.PNIM ---
Subjective Interval history: no reported problems Physical Exam Vital signs: Vital Signs 03/02/18 20:00 Temperature 97.7 F Pulse Rate 67 Respiratory Rate 14 Blood Pressure 111/56 L Pulse Oximetry 94 L Intake & Output 03/02/18 03/03/18 03/03/18 18:59 06:59 18:59 Intake Total 720 / 720 Balance 720 / 720 Weight 54 kg Intake: Oral 720 / 720 Other: # Voids 3 1 heart reg lung cta abd s/nt ext no edema Results - Labs CBC & Chem 7: 01/07/18 08:55 12/25/17 22:10 Assessment and Plan - Assessment (1) Altered mental status Code(s): R41.82 - Altered mental status, unspecified Status: Acute Plan: (1) Altered mental status - The patient is a 52 year old female with past medical history which includes Abnormal LFTs, EtOH abuse, chronic back pain, COPD, hypertension, SVT. Patient was brought to [facility] on 12/13 by friend for confusion x 2 weeks weakness and flu like symptoms. Patient was admitted to [facility] from 12/13/17 to 12/18/17 treated for metabolic encephalopathy related to UTI and then DC'd to [facility]. Patient was seen in the emergency department related to altered mentation and anemia . The patient at that time was had hemoglobin of 9.3 and her rectal examination was negative for blood. She was deemed safe for discharge with follow-up as an outpatient. Patient again presented to the ER 12/25/17 for increased altered mentation since falling at her group home at approximately 8 :15 AM 12/25. The patient has a baseline history of altered mentation that is thought to be related to her history of alcohol abuse and Wernicke's encephalopathy. - CT head negative - CXR reviewed the lungs are clear - UA does not indicate UTI, no culture indicated - Patient has ETOH abuse - [facility] protocol - Cont. folic acid and thiamine - Ammonia level 15 - TSH 3.710 - RPR nonreactive - EtOH use and review of prior records patient had been drinking 1.5-2 bottles of wine a day and had been decreasing intake. Patient has recently been admitted to [facility] possibility of EtOH withdrawal causing altered mental status. - PT evaluated - Appreciate Psych evaluation. They did not feel that the patient met criteria for involuntary psychiatric admission. It was felt that the pt may benefit from comprehensive inpatient/outpatient alcohol rehabilitation program. - Supportive care - DC order placed on 12/27/17- case management working on safe DC - CM has enlisted help from Adult Protective Services. No progress has been made to obtain an accepting facility. - Psychiatry re-evaluated 01/08/18- patient does not meet inpatient psych admission criteria - Re-consulted psych for competency evaluation, and they declared pt not competent to make her own medical decisions. - [place] [employer] assisting with Medicaid disability application and discharge planning. Discussed with CM on 02/17/18 and pts medicaid application at this point has not been approved so awaiting approval to try to find placement. - Discussed with RN. - Awaiting safe DC arrangements - 02/10/18 increase Seroquel to 100 mg PO QHS cont rx plan. (2) Anemia - On admission hgb 7.8, Hct 23.7, MCV 105.1 - 12/27/2017 hemoglobin improved 8.4 - 01/07/18 hemoglobin 10.3, Hct 31.2, MCV 101.9 - patient does have hx of ETOH abuse - B12 359 and folic acid 12.2 - Iron 48, total iron-binding capacity 183, percent saturation 26.2 - GI was consulted for possible EGD but unable to get consent so was recommended for outpt followup (3) Hypomagnesemia - magnesium 1.3 on admission - Pt was given replacement (4) Tachyarrhythmia - Pt with history of tachyarrhythmia - s/p EPS with ablation of AV re-entry node tachycardia Dr. Vazquez 2016 - Pt started on Metoprolol 25mg po BID with initial improvement in HR - increased metoprolol to 50mg BID on 01/11/18, HR stable (5) ETOH abuse - [facility] protocol - thiamine and folic acid - seizure precautions (6) COPD (chronic obstructive pulmonary disease) - Does not appear to be in acute exacerbation - duonebs if needed (7) HTN (hypertension) - Blood pressure was elevated during admission - Pt was initially started on amlodipine 5 mg p.o. daily but with tachyarrhythmia the Norvasc was stopped and Metoprolol added - BP has been stable.
[2018-03-03] MEDS: QUEtiapine 25 MG Tablet PO SCH (20:54)
[2018-03-04] MEDS: Metoprolol Tartrate 50 MG Tablet PO SCH ×2 (08:13→20:35)
[2018-03-04] MEDS: Senna/Docusate Sodium 8.6/50 MG Tablet PO SCH ×2 (08:14→20:33)
--- NOTE | 2018-03-04 12:14 | P.PNIM ---
Subjective Interval history: No new issues overnight. Vitals signs stable Physical Exam Vital signs: Vital Signs 03/03/18 20:00 03/04/18 08:00 Temperature 98.1 F 97.6 F Pulse Rate 77 63 Respiratory Rate 18 16 Blood Pressure 100/59 L 96/54 L Pulse Oximetry 96 98 Intake & Output 03/03/18 03/04/18 03/04/18 18:59 06:59 18:59 Intake Total 480 / 480 240 / 240 Balance 480 / 480 240 / 240 Weight 53.9 kg Intake: Oral 480 / 480 240 / 240 Other: # Voids 3 2 Narrative: GENERAL: NAD, pleasantly confused oriented to self only NECK: Supple, trachea midline. CARDIO: Regular RESP: Breath sounds equal bilaterally. ABD: Abdomen soft, non-tender, nondistended. EXT: No cyanosis, or edema. Results - Labs CBC & Chem 7: 01/07/18 08:55 12/25/17 22:10 Assessment and Plan - Assessment (1) Altered mental status Code(s): R41.82 - Altered mental status, unspecified Status: Acute Plan: (1) Altered mental status - The patient is a 52 year old female with past medical history which includes Abnormal LFTs, EtOH abuse, chronic back pain, COPD, hypertension, SVT. Patient was brought to [facility] on 12/13 by friend for confusion x 2 weeks weakness and flu like symptoms. Patient was admitted to [facility] from 12/13/17 to 12/18/17 treated for metabolic encephalopathy related to UTI and then DC'd to [facility]. Patient was seen in the emergency department related to altered mentation and anemia . The patient at that time was had hemoglobin of 9.3 and her rectal examination was negative for blood. She was deemed safe for discharge with follow-up as an outpatient. Patient again presented to the ER 12/25/17 for increased altered mentation since falling at her [facility] at approximately 8 :15 AM 12/25. The patient has a baseline history of altered mentation that is thought to be related to her history of alcohol abuse and Wernicke's encephalopathy. - CT head negative - CXR reviewed the lungs are clear - UA does not indicate UTI, no culture indicated - Patient has ETOH abuse - [facility] protocol - Cont. folic acid and thiamine - Ammonia level 15 - TSH 3.710 - RPR nonreactive - EtOH use and review of prior records patient had been drinking 1.5-2 bottles of wine a day and had been decreasing intake. Patient has recently been admitted to [facility] possibility of EtOH withdrawal causing altered mental status. - PT evaluated - Appreciate Psych evaluation. They did not feel that the patient met criteria for involuntary psychiatric admission. It was felt that the pt may benefit from comprehensive inpatient/outpatient alcohol rehabilitation program. - Supportive care - DC order placed on 12/27/17- case management working on safe DC - CM has enlisted help from Adult Protective Services. No progress has been made to obtain an accepting facility. - Psychiatry re-evaluated 01/08/18- patient does not meet inpatient psych admission criteria - 02/10/18 increase Seroquel to 100 mg PO QHS - Re-consulted psych for competency evaluation, and they declared pt not competent to make her own medical decisions. - [place] [employer] assisting with Medicaid disability application and discharge planning. Discussed with CM on 02/17/18 and pts medicaid application at this point has not been approved so awaiting approval to try to find placement. - Review of CM notes from 02/27/18 note that the pts mother will be meeting with Kishore form [employer] on Sunday @2:30 to complete application - Discussed with RN. - Awaiting safe DC arrangements (2) Anemia - On admission hgb 7.8, Hct 23.7, MCV 105.1 - 12/27/2017 hemoglobin improved 8.4 - 01/07/18 hemoglobin 10.3, Hct 31.2, MCV 101.9 - patient does have hx of ETOH abuse - B12 359 and folic acid 12.2 - Iron 48, total iron-binding capacity 183, percent saturation 26.2 - GI was consulted for possible EGD but unable to get consent so was recommended for outpt followup (3) Hypomagnesemia - magnesium 1.3 on admission - Pt was given replacement (4) Tachyarrhythmia - Pt with history of tachyarrhythmia - s/p EPS with ablation of AV re-entry node tachycardia Dr. Vazquez 2016 - Pt started on Metoprolol 25mg po BID with initial improvement in HR - increased metoprolol to 50mg BID on 01/11/18, HR stable (5) ETOH abuse - [facility] protocol - thiamine and folic acid - seizure precautions (6) COPD (chronic obstructive pulmonary disease) - Does not appear to be in acute exacerbation - duonebs if needed (7) HTN (hypertension) - Blood pressure was elevated during admission - Pt was initially started on amlodipine 5 mg p.o. daily but with tachyarrhythmia the Norvasc was stopped and Metoprolol added - BP has been stable. (2) Anemia Code(s): D64.9 - Anemia, unspecified Status: Chronic (3) Hypomagnesemia Code(s): E83.42 - Hypomagnesemia Status: Acute (4) Tachyarrhythmia Code(s): R00.0 - Tachycardia, unspecified Status: Chronic (5) ETOH abuse Code(s): F10.10 - Alcohol abuse, uncomplicated Status: Chronic (6) COPD (chronic obstructive pulmonary disease) Code(s): J44.9 - Chronic obstructive pulmonary disease, unspecified Status: Chronic (7) HTN (hypertension) Code(s): I10 - Essential (primary) hypertension Status: Chronic - Attending Attestation Patient examined. Assessment and plan formulated with Deirdre Olmstead PA-C. I agree with the above. (2) Anemia Qualifiers: Anemia type: unspecified type Qualified Code(s): D64.9 - Anemia, unspecified
[2018-03-04] MEDS: QUEtiapine 25 MG Tablet PO SCH (20:33)
[2018-03-05] MEDS: Metoprolol Tartrate 50 MG Tablet PO SCH ×2 (08:44→21:42)
[2018-03-05] MEDS: Senna/Docusate Sodium 8.6/50 MG Tablet PO SCH ×2 (08:45→21:42)
--- NOTE | 2018-03-05 15:01 | P.PNIM ---
Subjective Interval history: No acute events overnight Pt pleasantly confused Physical Exam Vital signs: Vital Signs 03/04/18 20:00 03/05/18 08:00 Temperature 97.9 F 97.5 F L Pulse Rate 70 62 Respiratory Rate 16 16 Blood Pressure 114/56 L 96/54 L Pulse Oximetry 98 96 Intake & Output 03/04/18 03/05/18 03/05/18 18:59 06:59 18:59 Intake Total 485 / 485 240 / 240 Balance 485 / 485 240 / 240 Weight 54.7 kg Intake: Oral 480 / 480 240 / 240 Other Other: # Voids 2 # Bowel Movements 0 Narrative: GENERAL: NAD, pleasantly confused oriented to self only NECK: Supple, trachea midline. CARDIO: Regular RESP: Breath sounds equal bilaterally. ABD: Abdomen soft, non-tender, nondistended. EXT: No cyanosis, or edema. Results - Labs CBC & Chem 7: 01/07/18 08:55 12/25/17 22:10 Assessment and Plan - Assessment (1) Altered mental status Code(s): R41.82 - Altered mental status, unspecified Status: Acute Plan: (1) Altered mental status - The patient is a 52 year old female with past medical history which includes Abnormal LFTs, EtOH abuse, chronic back pain, COPD, hypertension, SVT. Patient was brought to [facility] on 12/13 by friend for confusion x 2 weeks weakness and flu like symptoms. Patient was admitted to [facility] from 12/13/17 to 12/18/17 treated for metabolic encephalopathy related to UTI and then DC'd to [facility]. Patient was seen in the emergency department related to altered mentation and anemia . The patient at that time was had hemoglobin of 9.3 and her rectal examination was negative for blood. She was deemed safe for discharge with follow-up as an outpatient. Patient again presented to the ER 12/25/17 for increased altered mentation since falling at her custodial at approximately 8 :15 AM 12/25. The patient has a baseline history of altered mentation that is thought to be related to her history of alcohol abuse and Wernicke's encephalopathy. - CT head negative - CXR reviewed the lungs are clear - UA does not indicate UTI, no culture indicated - Patient has ETOH abuse - [facility] protocol - Cont. folic acid and thiamine - Ammonia level 15 - TSH 3.710 - RPR nonreactive - EtOH use and review of prior records patient had been drinking 1.5-2 bottles of wine a day and had been decreasing intake. Patient has recently been admitted to [facility] possibility of EtOH withdrawal causing altered mental status. - PT evaluated - Appreciate Psych evaluation. They did not feel that the patient met criteria for involuntary psychiatric admission. It was felt that the pt may benefit from comprehensive inpatient/outpatient alcohol rehabilitation program. - Supportive care - DC order placed on 12/27/17- case management working on safe DC - CM has enlisted help from Adult Protective Services. No progress has been made to obtain an accepting facility. - Psychiatry re-evaluated 01/08/18- patient does not meet inpatient psych admission criteria - 02/10/18 increase Seroquel to 100 mg PO QHS - Re-consulted psych for competency evaluation, and they declared pt not competent to make her own medical decisions. - [place] [employer] assisting with Medicaid disability application and discharge planning. Discussed with CM on 02/17/18 and pts medicaid application at this point has not been approved so awaiting approval to try to find placement. - Review of CM notes from 02/27/18 note that the pts mother will be meeting with Kishore form [employer] on Sunday @2:30 to complete application - Discussed with RN. - Awaiting safe DC arrangements (2) Anemia - On admission hgb 7.8, Hct 23.7, MCV 105.1 - 12/27/2017 hemoglobin improved 8.4 - 01/07/18 hemoglobin 10.3, Hct 31.2, MCV 101.9 - patient does have hx of ETOH abuse - B12 359 and folic acid 12.2 - Iron 48, total iron-binding capacity 183, percent saturation 26.2 - GI was consulted for possible EGD but unable to get consent so was recommended for outpt followup (3) Hypomagnesemia - magnesium 1.3 on admission - Pt was given replacement (4) Tachyarrhythmia - Pt with history of tachyarrhythmia - s/p EPS with ablation of AV re-entry node tachycardia Dr. Vazquez 2016 - Pt started on Metoprolol 25mg po BID with initial improvement in HR - increased metoprolol to 50mg BID on 01/11/18, HR stable (5) ETOH abuse - [facility] protocol - thiamine and folic acid - seizure precautions (6) COPD (chronic obstructive pulmonary disease) - Does not appear to be in acute exacerbation - duonebs if needed (7) HTN (hypertension) - Blood pressure was elevated during admission - Pt was initially started on amlodipine 5 mg p.o. daily but with tachyarrhythmia the Norvasc was stopped and Metoprolol added - BP has been stable. (2) Anemia Code(s): D64.9 - Anemia, unspecified Status: Chronic (3) Hypomagnesemia Code(s): E83.42 - Hypomagnesemia Status: Acute (4) Tachyarrhythmia Code(s): R00.0 - Tachycardia, unspecified Status: Chronic (5) ETOH abuse Code(s): F10.10 - Alcohol abuse, uncomplicated Status: Chronic (6) COPD (chronic obstructive pulmonary disease) Code(s): J44.9 - Chronic obstructive pulmonary disease, unspecified Status: Chronic (7) HTN (hypertension) Code(s): I10 - Essential (primary) hypertension Status: Chronic - Attending Attestation Patient examined. Assessment and plan formulated with Deirdre Olmstead PA-C. I agree with the above. (2) Anemia Qualifiers: Anemia type: unspecified type Qualified Code(s): D64.9 - Anemia, unspecified
[2018-03-05] MEDS: QUEtiapine 25 MG Tablet PO SCH (21:42)
[2018-03-06] MEDS: Metoprolol Tartrate 50 MG Tablet PO SCH ×2 (09:19→20:45)
[2018-03-06] MEDS: Senna/Docusate Sodium 8.6/50 MG Tablet PO SCH ×2 (09:19→20:46)
--- NOTE | 2018-03-06 15:07 | P.PNIM ---
Subjective Interval history: Pt has NO new complaints. Pt ambulating in the hallways without difficulties. Physical Exam Vital signs: Vital Signs 03/05/18 20:00 03/06/18 08:00 Temperature 97.6 F 97.4 F L Pulse Rate 78 60 Respiratory Rate 16 17 Blood Pressure 112/66 106/62 Pulse Oximetry 98 98 Narrative: GENERAL: NAD, pleasantly confused oriented to self only NECK: Supple, trachea midline. CARDIO: Regular RESP: Breath sounds equal bilaterally. ABD: Abdomen soft, non-tender, nondistended. EXT: No cyanosis, or edema. Results - Labs CBC & Chem 7: 01/07/18 08:55 12/25/17 22:10 Assessment and Plan - Assessment (1) Altered mental status Code(s): R41.82 - Altered mental status, unspecified Status: Acute Plan: (1) Altered mental status - The patient is a 52 year old female with past medical history which includes Abnormal LFTs, EtOH abuse, chronic back pain, COPD, hypertension, SVT. Patient was brought to [facility] on 12/13 by friend for confusion x 2 weeks weakness and flu like symptoms. Patient was admitted to [facility] from 12/13/17 to 12/18/17 treated for metabolic encephalopathy related to UTI and then DC'd to [facility]. Patient was seen in the emergency department related to altered mentation and anemia . The patient at that time was had hemoglobin of 9.3 and her rectal examination was negative for blood. She was deemed safe for discharge with follow-up as an outpatient. Patient again presented to the ER 12/25/17 for increased altered mentation since [facility] at approximately 8 :15 AM 12/25. The patient has a baseline history of altered mentation that is thought to be related to her history of alcohol abuse and Wernicke's encephalopathy. - CT head negative - CXR reviewed the lungs are clear - UA does not indicate UTI, no culture indicated - Patient has ETOH abuse - [facility] protocol - Cont. folic acid and thiamine - Ammonia level 15 - TSH 3.710 - RPR nonreactive - EtOH use and review of prior records patient had been drinking 1.5-2 bottles of wine a day and had been decreasing intake. Patient has recently been admitted to [facility] possibility of EtOH withdrawal causing altered mental status. - PT evaluated - Appreciate Psych evaluation. They did not feel that the patient met criteria for involuntary psychiatric admission. It was felt that the pt may benefit from comprehensive inpatient/outpatient alcohol rehabilitation program. - Supportive care - DC order placed on 12/27/17- case management working on safe DC - CM has enlisted help from Adult Prote[employer] Services. No progress has been made to obtain an accepting facility. - Psychiatry re-evaluated 01/08/18- patient does not meet inpatient psych admission criteria - 02/10/18 increase Seroquel to 100 mg PO QHS - Re-consulted psych for competency evaluation, and they declared pt not competent to make her own medical decisions. - [place] [employer] assisting with Medicaid disability application and discharge planning. Discussed with CM on 02/17/18 and pts medicaid application at this point has not been approved so awaiting approval to try to find placement. - Review of CM notes from 02/27/18 note that the pts mother will be meeting with Kishore form [employer] on Sunday @2:30 to complete application - Discussed with RN. - Pt has NO new clinical medical issues - continue to await safe discharge arrangements. (2) Anemia - On admission hgb 7.8, Hct 23.7, MCV 105.1 - 12/27/2017 hemoglobin improved 8.4 - 01/07/18 hemoglobin 10.3, Hct 31.2, MCV 101.9 - patient does have hx of ETOH abuse - B12 359 and folic acid 12.2 - Iron 48, total iron-binding capacity 183, percent saturation 26.2 - GI was consulted for possible EGD but unable to get consent so was recommended for outpt followup (3) Hypomagnesemia - magnesium 1.3 on admission - Pt was given replacement (4) Tachyarrhythmia - Pt with history of tachyarrhythmia - s/p EPS with ablation of AV re-entry node tachycardia Dr. Vazquez 2016 - Pt started on Metoprolol 25mg po BID with initial improvement in HR - increased metoprolol to 50mg BID on 01/11/18, HR stable (5) ETOH abuse - [facility] protocol - thiamine and folic acid - seizure precautions (6) COPD (chronic obstructive pulmonary disease) - Does not appear to be in acute exacerbation - duonebs if needed (7) HTN (hypertension) - Blood pressure was elevated during admission - Pt was initially started on amlodipine 5 mg p.o. daily but with tachyarrhythmia the Norvasc was stopped and Metoprolol added - BP has been stable. (2) Anemia Code(s): D64.9 - Anemia, unspecified Status: Chronic Plan: - On admission hgb 7.8, Hct 23.7, MCV 105.1 - 12/27/2017 hemoglobin improved 8.4 - 01/07/18 hemoglobin 10.3, Hct 31.2, MCV 101.9 - patient does have hx of ETOH abuse - B12 359 and folic acid 12.2 - Iron 48, total iron-binding capacity 183, percent saturation 26.2 - GI was consulted for possible EGD but unable to get consent so was recommended for outpt followup (3) Hypomagnesemia Code(s): E83.42 - Hypomagnesemia Status: Acute Plan: - magnesium 1.3 on admission - Pt was given replacement (4) Tachyarrhythmia Code(s): R00.0 - Tachycardia, unspecified Status: Chronic Plan: - Pt with history of tachyarrhythmia - s/p EPS with ablation of AV re-entry node tachycardia Dr. Vazquez 2016 - Pt started on Metoprolol 25mg po BID with initial improvement in HR - increased metoprolol to 50mg BID on 01/11/18, HR stable (5) ETOH abuse Code(s): F10.10 - Alcohol abuse, uncomplicated Status: Chronic Plan: - [facility] protocol - thiamine and folic acid - seizure precautions (6) COPD (chronic obstructive pulmonary disease) Code(s): J44.9 - Chronic obstructive pulmonary disease, unspecified Status: Chronic Plan: - Does not appear to be in acute exacerbation - duonebs if needed (7) HTN (hypertension) Code(s): I10 - Essential (primary) hypertension Status: Chronic Plan: - Blood pressure was elevated during admission - Pt was initially started on amlodipine 5 mg p.o. daily but with tachyarrhythmia the Norvasc was stopped and Metoprolol added - BP has been stable. - Plan Patient examined. Assessment and plan formulated with Deirdre BATEMAN I agree with the above. Discharge Planning: Patient examined. Assessment and plan formulated with Betsy BATEMAN I agree with the above. (2) Anemia Qualifiers: Anemia type: unspecified type Qualified Code(s): D64.9 - Anemia, unspecified
[2018-03-06] MEDS: QUEtiapine 25 MG Tablet PO SCH (20:46)
[2018-03-07] MEDS: Senna/Docusate Sodium 8.6/50 MG Tablet PO SCH ×2 (09:08→20:02)
[2018-03-07] MEDS: Metoprolol Tartrate 50 MG Tablet PO SCH ×2 (09:08→20:02)
[2018-03-07 09:41] LABS: Baso % (Auto) 0.8 % (0.0-2.0); Eos # (Auto) 0.1 th/mm3 (0.0-0.4); Eos % (Auto) 2.4 % (0.0-4.0); Hematocrit 38.4 % (35.0-46.0); Hemoglobin 12.8 gm/dL (11.6-15.3); Lymph # (Auto) 2.6 th/mm3 (1.0-4.8); Lymph % (Auto) 43.7 % (9.0-44.0); Mean Corpuscular HGB Conc 33.4 % (32.0-36.0); Mean Platelet Volume 9.5 fL (7.0-11.0); Mono # (Auto) 0.6 th/mm3 (0.0-0.9); Mono % (Auto) 9.3 % (0.0-8.0); Neut # (Auto) 2.6 th/mm3 (1.8-7.7); Neut % (Auto) 43.8 % (16.0-70.0); Platelet Count 226 th/mm3 (150-450); Red Blood Count 4.13 mil/mm3 (4.00-5.30)
[2018-03-07 10:06] LABS: Carbon Dioxide 27.5 meq/L (21.0-32.0); Magnesium 1.6 mg/dL (1.5-2.5); Potassium 3.8 meq/L (3.5-5.1)
--- NOTE | 2018-03-07 14:01 | P.PNIM ---
Subjective Interval history: Patient remains pleasantly confused Offers no new medical complaints Physical Exam Vital signs: Vital Signs 03/06/18 20:43 03/07/18 04:00 03/07/18 08:00 Temperature 98.2 F 98 F 97.4 F L Pulse Rate 68 71 74 Respiratory Rate 20 16 18 Blood Pressure 100/64 95/52 L 100/66 Pulse Oximetry 98 96 98 Intake & Output 03/06/18 03/07/18 03/07/18 18:59 06:59 18:59 Intake Total 720 / 720 Balance 720 / 720 Weight 53.9 kg Intake: Oral 720 / 720 Other: # Voids 3 Date of Last Bowel Movement 02/27/18 02/27/18 02/27/18 # Bowel Movements 0 Narrative: GENERAL: NAD, pleasantly confused oriented to self only NECK: Supple, trachea midline. CARDIO: Regular RESP: Breath sounds equal bilaterally. ABD: Abdomen soft, non-tender, nondistended. EXT: No cyanosis, or edema. Results - Labs CBC & Chem 7: 03/07/18 08:25 03/09/18 08:00 Laboratory Results - last 24 hr 03/07/18 03/07/18 08:25 08:25 WBC 6.0 RBC 4.13 Hgb 12.8 Hct 38.4 MCV 93.0 MCH 31.0 MCHC 33.4 RDW 13.0 Plt Count 226 MPV 9.5 Neut % (Auto) 43.8 Lymph % (Auto) 43.7 Teller % (Auto) 9.3 H Eos % (Auto) 2.4 Baso % (Auto) 0.8 Neut # (Auto) 2.6 Lymph # (Auto) 2.6 Teller # (Auto) 0.6 Eos # (Auto) 0.1 Baso # (Auto) 0.0 WBC Differential . Differential Comment Auto diff final Sodium 139 Potassium 3.8 Chloride 102 Carbon Dioxide 27.5 Anion Gap 10 BUN 28 H Creatinine 1.38 H Estimated GFR 40 L Random Glucose 88 Calcium 11.0 H Magnesium 1.6 Assessment and Plan - Assessment (1) Altered mental status Code(s): R41.82 - Altered mental status, unspecified Status: Acute Plan: (1) Altered mental status - The patient is a 52 year old female with past medical history which includes Abnormal LFTs, EtOH abuse, chronic back pain, COPD, hypertension, SVT. Patient was brought to [facility] on 12/13 by friend for confusion x 2 weeks weakness and flu like symptoms. Patient was admitted to [facility] from 12/13/17 to 12/18/17 treated for metabolic encephalopathy related to UTI and then DC'd to [facility]. Patient was seen in the emergency department related to altered mentation and anemia . The patient at that time was had hemoglobin of 9.3 and her rectal examination was negative for blood. She was deemed safe for discharge with follow-up as an outpatient. Patient again presented to the ER 12/25/17 for increased altered mentation since falling at her retirement at approximately 8 :15 AM 12/25. The patient has a baseline history of altered mentation that is thought to be related to her history of alcohol abuse and Wernicke's encephalopathy. - CT head negative - CXR reviewed the lungs are clear - UA does not indicate UTI, no culture indicated - Patient has ETOH abuse - [facility] protocol - Cont. folic acid and thiamine - Ammonia level 15 - TSH 3.710 - RPR nonreactive - EtOH use and review of prior records patient had been drinking 1.5-2 bottles of wine a day and had been decreasing intake. Patient has recently been admitted to [facility] nursing [facility] possibility of EtOH withdrawal causing altered mental status. - PT evaluated - Appreciate Psych evaluation. They did not feel that the patient met criteria for involuntary psychiatric admission. It was felt that the pt may benefit from comprehensive inpatient/outpatient alcohol rehabilitation program. - Supportive care - DC order placed on 12/27/17- case management working on safe DC - CM has enlisted help from Adult Protective Services. No progress has been made to obtain an accepting facility. - Psychiatry re-evaluated 01/08/18- patient does not meet inpatient psych admission criteria - 02/10/18 increase Seroquel to 100 mg PO QHS - Re-consulted psych for competency evaluation, and they declared pt not competent to make her own medical decisions. - [place] [employer] assisting with Medicaid disability application and discharge planning. Discussed with CM on 02/17/18 and pts medicaid application at this point has not been approved so awaiting approval to try to find placement. - Review of CM notes from 02/27/18 note that the pts mother will be meeting with Kishore form [employer] on Sunday @2:30 to complete application - Discussed with RN. - Pt has NO new clinical medical issues - continue to await safe discharge arrangements. (2) Anemia - On admission hgb 7.8, Hct 23.7, MCV 105.1 - 12/27/2017 hemoglobin improved 8.4 - 01/07/18 hemoglobin 10.3, Hct 31.2, MCV 101.9 - patient does have hx of ETOH abuse - B12 359 and folic acid 12.2 - Iron 48, total iron-binding capacity 183, percent saturation 26.2 - GI was consulted for possible EGD but unable to get consent so was recommended for outpt followup (3) Hypomagnesemia - magnesium 1.3 on admission - Pt was given replacement (4) Tachyarrhythmia - Pt with history of tachyarrhythmia - s/p EPS with ablation of AV re-entry node tachycardia Dr. Vazquez 2016 - Pt started on Metoprolol 25mg po BID with initial improvement in HR - increased metoprolol to 50mg BID on 01/11/18, HR stable (5) ETOH abuse - [facility] protocol - thiamine and folic acid - seizure precautions (6) COPD (chronic obstructive pulmonary disease) - Does not appear to be in acute exacerbation - duonebs if needed (7) HTN (hypertension) - Blood pressure was elevated during admission - Pt was initially started on amlodipine 5 mg p.o. daily but with tachyarrhythmia the Norvasc was stopped and Metoprolol added - BP has been stable. (03/07/18) BUN 28, creatinine 1.38, GFR 40 encourage PO hydration recheck BMP in 2 days - Plan Patient examined. Assessment and plan formulated with Betsy BATEMAN I agree with the above.
[2018-03-07] MEDS: QUEtiapine 25 MG Tablet PO SCH (20:02)
[2018-03-08] MEDS: Metoprolol Tartrate 50 MG Tablet PO SCH ×2 (09:37→21:26)
[2018-03-08] MEDS: Senna/Docusate Sodium 8.6/50 MG Tablet PO SCH ×2 (09:37→21:26)
--- NOTE | 2018-03-08 10:53 | P.PNIM ---
Subjective Interval history: Patient resting in bed offers no medical complaints at this time discussed with nursing no new concerns awaiting safe placement Physical Exam Vital signs: Vital Signs 03/07/18 20:00 03/08/18 08:00 Temperature 97.8 F 97.4 F L Pulse Rate 73 70 Respiratory Rate 18 18 Blood Pressure 103/66 100/64 Pulse Oximetry 97 98 Intake & Output 03/07/18 03/08/18 03/08/18 18:59 06:59 18:59 Intake Total 720 / 720 Balance 720 / 720 Intake: Oral 720 / 720 Other 0 / 0 Other: # Voids 3 Date of Last Bowel Movement 02/27/18 Narrative: GENERAL: NAD, pleasantly confused oriented to self only NECK: Supple, trachea midline. CARDIO: Regular RESP: Breath sounds equal bilaterally. ABD: Abdomen soft, non-tender, nondistended. EXT: No cyanosis, or edema. Results - Labs CBC & Chem 7: 03/07/18 08:25 03/09/18 08:00 Assessment and Plan - Assessment (1) Altered mental status Code(s): R41.82 - Altered mental status, unspecified Status: Acute Plan: (1) Altered mental status - The patient is a 52 year old female with past medical history which includes Abnormal LFTs, EtOH abuse, chronic back pain, COPD, hypertension, SVT. Patient was brought to [facility] on 12/13 by friend for confusion x 2 weeks weakness and flu like symptoms. Patient was admitted to [facility] from 12/13/17 to 12/18/17 treated for metabolic encephalopathy related to UTI and then DC'd to [facility]. Patient was seen in the emergency department related to altered mentation and anemia . The patient at that time was had hemoglobin of 9.3 and her rectal examination was negative for blood. She was deemed safe for discharge with follow-up as an outpatient. Patient again presented to the ER 12/25/17 for increased altered mentation since falling at her senior living at approximately 8 :15 AM 12/25. The patient has a baseline history of altered mentation that is thought to be related to her history of alcohol abuse and Wernicke's encephalopathy. - CT head negative - CXR reviewed the lungs are clear - UA does not indicate UTI, no culture indicated - Patient has ETOH abuse - [facility] protocol - Cont. folic acid and thiamine - Ammonia level 15 - TSH 3.710 - RPR nonreactive - EtOH use and review of prior records patient had been drinking 1.5-2 bottles of wine a day and had been decreasing intake. Patient has recently been admitted to [facility] nursing [facility] possibility of EtOH withdrawal causing altered mental status. - PT evaluated - Appreciate Psych evaluation. They did not feel that the patient met criteria for involuntary psychiatric admission. It was felt that the pt may benefit from comprehensive inpatient/outpatient alcohol rehabilitation program. - Supportive care - DC order placed on 12/27/17- case management working on safe DC - CM has enlisted help from Adult Protective Services. No progress has been made to obtain an accepting facility. - Psychiatry re-evaluated 01/08/18- patient does not meet inpatient psych admission criteria - 02/10/18 increase Seroquel to 100 mg PO QHS - Re-consulted psych for competency evaluation, and they declared pt not competent to make her own medical decisions. - [place] [employer] assisting with Medicaid disability application and discharge planning. Discussed with CM on 02/17/18 and pts medicaid application at this point has not been approved so awaiting approval to try to find placement. - Review of CM notes from 02/27/18 note that the pts mother will be meeting with Kishore form [employer] on Sunday @2:30 to complete application - Discussed with RN. - Pt has NO new clinical medical issues - continue to await safe discharge arrangements. (2) Anemia - On admission hgb 7.8, Hct 23.7, MCV 105.1 - 12/27/2017 hemoglobin improved 8.4 - 01/07/18 hemoglobin 10.3, Hct 31.2, MCV 101.9 - patient does have hx of ETOH abuse - B12 359 and folic acid 12.2 - Iron 48, total iron-binding capacity 183, percent saturation 26.2 - GI was consulted for possible EGD but unable to get consent so was recommended for outpt followup (3) Hypomagnesemia - magnesium 1.3 on admission - Pt was given replacement (4) Tachyarrhythmia - Pt with history of tachyarrhythmia - s/p EPS with ablation of AV re-entry node tachycardia Dr. Vazquez 2016 - Pt started on Metoprolol 25mg po BID with initial improvement in HR - increased metoprolol to 50mg BID on 01/11/18, HR stable (5) ETOH abuse - [facility] protocol - thiamine and folic acid - seizure precautions (6) COPD (chronic obstructive pulmonary disease) - Does not appear to be in acute exacerbation - duonebs if needed (7) HTN (hypertension) - Blood pressure was elevated during admission - Pt was initially started on amlodipine 5 mg p.o. daily but with tachyarrhythmia the Norvasc was stopped and Metoprolol added - BP has been stable. (03/07/18) BUN 28, creatinine 1.38, GFR 40 encourage PO hydration recheck BMP in AM - Attending Attestation Patient examined. Assessment and plan formulated with Betsy Newman PA-C. I agree with the above.
[2018-03-08] MEDS: QUEtiapine 25 MG Tablet PO SCH (21:26)
[2018-03-09 10:05] LABS: Calcium 10.6 mg/dL (8.5-10.1); Carbon Dioxide 26.8 meq/L (21.0-32.0); Potassium 3.8 meq/L (3.5-5.1)
[2018-03-09] MEDS: Metoprolol Tartrate 50 MG Tablet PO SCH ×2 (10:43→20:57)
[2018-03-09] MEDS: Senna/Docusate Sodium 8.6/50 MG Tablet PO SCH ×2 (10:43→20:57)
--- NOTE | 2018-03-09 10:43 | P.PNIM ---
Subjective Interval history: Patient remains pleasantly confused offer no medical complaints at this time discussed with nursing - offers no new concerns Physical Exam Vital signs: Vital Signs 03/08/18 20:00 03/09/18 08:00 Temperature 97.7 F 97.7 F Pulse Rate 81 64 Respiratory Rate 16 18 Blood Pressure 92/65 L 108/63 Pulse Oximetry 97 98 Intake & Output 03/08/18 03/09/18 03/09/18 18:59 06:59 18:59 Intake Total 480 / 480 360 / 360 Balance 480 / 480 360 / 360 Weight 53.1 kg Intake: Oral 480 / 480 360 / 360 Other: # Voids 3 2 Date of Last Bowel Movement 03/08/18 # Bowel Movements 0 Narrative: GENERAL: NAD, pleasantly confused oriented to self only NECK: Supple, trachea midline. CARDIO: Regular RESP: Breath sounds equal bilaterally. ABD: Abdomen soft, non-tender, nondistended. EXT: No cyanosis, or edema. Results - Labs CBC & Chem 7: 03/07/18 08:25 03/09/18 08:00 Laboratory Results - last 24 hr 03/09/18 08:00 Sodium 138 Potassium 3.8 Chloride 102 Carbon Dioxide 26.8 Anion Gap 9 BUN 26 H Creatinine 1.37 H Estimated GFR 40 L Random Glucose 80 Calcium 10.6 H Assessment and Plan - Assessment (1) Altered mental status Code(s): R41.82 - Altered mental status, unspecified Status: Acute Plan: (1) Altered mental status - The patient is a 52 year old female with past medical history which includes Abnormal LFTs, EtOH abuse, chronic back pain, COPD, hypertension, SVT. Patient was brought to [facility] on 12/13 by friend for confusion x 2 weeks weakness and flu like symptoms. Patient was admitted to [facility] from 12/13/17 to 12/18/17 treated for metabolic encephalopathy related to UTI and then DC'd to [facility]. Patient was seen in the emergency department related to altered mentation and anemia . The patient at that time was had hemoglobin of 9.3 and her rectal examination was negative for blood. She was deemed safe for discharge with follow-up as an outpatient. Patient again presented to the ER 12/25/17 for increased altered mentation since falling at her longterm at approximately 8 :15 AM 12/25. The patient has a baseline history of altered mentation that is thought to be related to her history of alcohol abuse and Wernicke's encephalopathy. - CT head negative - CXR reviewed the lungs are clear - UA does not indicate UTI, no culture indicated - Patient has ETOH abuse - [facility] protocol - Cont. folic acid and thiamine - Ammonia level 15 - TSH 3.710 - RPR nonreactive - EtOH use and review of prior records patient had been drinking 1.5-2 bottles of wine a day and had been decreasing intake. Patient has recently been admitted to [facility] possibility of EtOH withdrawal causing altered mental status. - PT evaluated - Appreciate Psych evaluation. They did not feel that the patient met criteria for involuntary psychiatric admission. It was felt that the pt may benefit from comprehensive inpatient/outpatient alcohol rehabilitation program. - Supportive care - DC order placed on 12/27/17- case management working on safe DC - CM has enlisted help from Adult Protective Services. No progress has been made to obtain an accepting facility. - Psychiatry re-evaluated 01/08/18- patient does not meet inpatient psych admission criteria - 02/10/18 increase Seroquel to 100 mg PO QHS - Re-consulted psych for competency evaluation, and they declared pt not competent to make her own medical decisions. - [place] [facility] assisting with Medicaid disability application and discharge planning. Discussed with CM on 02/17/18 and pts medicaid application at this point has not been approved so awaiting approval to try to find placement. - Review of CM notes from 02/27/18 note that the pts mother will be meeting with Kishore form [facility] on Sunday @2:30 to complete application - Discussed with RN. - Pt has NO new clinical medical issues - continue to await safe discharge arrangements. (2) Anemia - On admission hgb 7.8, Hct 23.7, MCV 105.1 - 12/27/2017 hemoglobin improved 8.4 - 01/07/18 hemoglobin 10.3, Hct 31.2, MCV 101.9 - patient does have hx of ETOH abuse - B12 359 and folic acid 12.2 - Iron 48, total iron-binding capacity 183, percent saturation 26.2 - GI was consulted for possible EGD but unable to get consent so was recommended for outpt followup (3) Hypomagnesemia - magnesium 1.3 on admission - Pt was given replacement (4) Tachyarrhythmia - Pt with history of tachyarrhythmia - s/p EPS with ablation of AV re-entry node tachycardia Dr. Vazquez 2016 - Pt started on Metoprolol 25mg po BID with initial improvement in HR - increased metoprolol to 50mg BID on 01/11/18, HR stable (5) ETOH abuse - [facility] protocol - thiamine and folic acid - seizure precautions (6) COPD (chronic obstructive pulmonary disease) - Does not appear to be in acute exacerbation - duonebs if needed (7) HTN (hypertension) - Blood pressure was elevated during admission - Pt was initially started on amlodipine 5 mg p.o. daily but with tachyarrhythmia the Norvasc was stopped and Metoprolol added - BP has been stable. (03/07/18) BUN 28, creatinine 1.38, GFR 40 encourage PO hydration (03/09/18) recheck BMP appears stable continue to encourage PO fluid intake - Plan Patient examined. Assessment and plan formulated with Betsy BATEMAN I agree with the above.
[2018-03-09] MEDS: QUEtiapine 25 MG Tablet PO SCH (20:57)
[2018-03-10] MEDS: Senna/Docusate Sodium 8.6/50 MG Tablet PO SCH ×2 (08:53→20:57)
[2018-03-10] MEDS: Metoprolol Tartrate 50 MG Tablet PO SCH ×2 (08:54→20:58)
--- NOTE | 2018-03-10 12:57 | P.PNIM ---
Subjective Interval history: Patient remains pleasantly confused offer no medical complaints at this time appears to be in no acute distress awaiting placement Physical Exam Vital signs: Vital Signs 03/09/18 20:00 03/10/18 08:00 Temperature 97.9 F 97.5 F L Pulse Rate 78 64 Respiratory Rate 17 20 Blood Pressure 106/75 90/50 L Pulse Oximetry 99 98 Intake & Output 03/09/18 03/10/18 03/10/18 18:59 06:59 18:59 Intake Total 600 / 600 Balance 600 / 600 Weight 53.8 kg Intake: Oral 600 / 600 Other: # Voids 3 Date of Last Bowel Movement 03/08/18 03/08/18 # Bowel Movements 1 Narrative: GENERAL: NAD, pleasantly confused oriented to self only NECK: Supple, trachea midline. CARDIO: Regular RESP: Breath sounds equal bilaterally. ABD: Abdomen soft, non-tender, nondistended. EXT: No cyanosis, or edema. Results - Labs CBC & Chem 7: 03/07/18 08:25 03/09/18 08:00 Assessment and Plan - Assessment (1) Altered mental status Code(s): R41.82 - Altered mental status, unspecified Status: Acute Plan: (1) Altered mental status - The patient is a 52 year old female with past medical history which includes Abnormal LFTs, EtOH abuse, chronic back pain, COPD, hypertension, SVT. Patient was brought to [facility] on 12/13 by friend for confusion x 2 weeks weakness and flu like symptoms. Patient was admitted to [facility] from 12/13/17 to 12/18/17 treated for metabolic encephalopathy related to UTI and then DC'd to [facility]. Patient was seen in the emergency department related to altered mentation and anemia . The patient at that time was had hemoglobin of 9.3 and her rectal examination was negative for blood. She was deemed safe for discharge with follow-up as an outpatient. Patient again presented to the ER 12/25/17 for increased altered mentation since falling at her group home at approximately 8 :15 AM 12/25. The patient has a baseline history of altered mentation that is thought to be related to her history of alcohol abuse and Wernicke's encephalopathy. - CT head negative - CXR reviewed the lungs are clear - UA does not indicate UTI, no culture indicated - Patient has ETOH abuse - [facility] protocol - Cont. folic acid and thiamine - Ammonia level 15 - TSH 3.710 - RPR nonreactive - EtOH use and review of prior records patient had been drinking 1.5-2 bottles of wine a day and had been decreasing intake. Patient has recently been admitted to [facility] possibility of EtOH withdrawal causing altered mental status. - PT evaluated - Appreciate Psych evaluation. They did not feel that the patient met criteria for involuntary psychiatric admission. It was felt that the pt may benefit from comprehensive inpatient/outpatient alcohol rehabilitation program. - Supportive care - DC order placed on 12/27/17- case management working on safe DC - CM has enlisted help from Adult Protective Services. No progress has been made to obtain an accepting facility. - Psychiatry re-evaluated 01/08/18- patient does not meet inpatient psych admission criteria - 02/10/18 increase Seroquel to 100 mg PO QHS - Re-consulted psych for competency evaluation, and they declared pt not competent to make her own medical decisions. - [place] [facility] assisting with Medicaid disability application and discharge planning. Discussed with CM on 02/17/18 and pts medicaid application at this point has not been approved so awaiting approval to try to find placement. - Review of CM notes from 02/27/18 note that the pts mother will be meeting with Kishore form [employer] on Sunday @2:30 to complete application - Discussed with RN. - Pt has NO new clinical medical issues - continue to await safe discharge arrangements. (2) Anemia - On admission hgb 7.8, Hct 23.7, MCV 105.1 - 12/27/2017 hemoglobin improved 8.4 - 01/07/18 hemoglobin 10.3, Hct 31.2, MCV 101.9 - patient does have hx of ETOH abuse - B12 359 and folic acid 12.2 - Iron 48, total iron-binding capacity 183, percent saturation 26.2 - GI was consulted for possible EGD but unable to get consent so was recommended for outpt followup (3) Hypomagnesemia - magnesium 1.3 on admission - Pt was given replacement (4) Tachyarrhythmia - Pt with history of tachyarrhythmia - s/p EPS with ablation of AV re-entry node tachycardia Dr. Vazquez 2016 - Pt started on Metoprolol 25mg po BID with initial improvement in HR - increased metoprolol to 50mg BID on 01/11/18, HR stable (5) ETOH abuse - [facility] protocol - thiamine and folic acid - seizure precautions (6) COPD (chronic obstructive pulmonary disease) - Does not appear to be in acute exacerbation - duonebs if needed (7) HTN (hypertension) - Blood pressure was elevated during admission - Pt was initially started on amlodipine 5 mg p.o. daily but with tachyarrhythmia the Norvasc was stopped and Metoprolol added - BP has been stable. (03/07/18) BUN 28, creatinine 1.38, GFR 40 encourage PO hydration (03/09/18) recheck BMP appears stable continue to encourage PO fluid intake (03/10/18) No changes - Attending Attestation Patient examined. Assessment and plan formulated with Betsy BATEMAN I agree with the above.
[2018-03-10] MEDS: QUEtiapine 25 MG Tablet PO SCH (20:57)
[2018-03-11] MEDS: Senna/Docusate Sodium 8.6/50 MG Tablet PO SCH ×2 (08:23→21:13)
[2018-03-11] MEDS: Metoprolol Tartrate 50 MG Tablet PO SCH ×2 (08:24→21:13)
--- NOTE | 2018-03-11 10:18 | P.PNIM ---
Subjective Interval history: Patient remains pleasantly confused offer no medical complaints at this time appears to be in no acute distress awaiting placement Physical Exam Vital signs: Vital Signs 03/10/18 20:00 Temperature 97.7 F Pulse Rate 75 Respiratory Rate 18 Blood Pressure 109/61 Pulse Oximetry 98 Intake & Output 03/10/18 03/11/18 03/11/18 18:59 06:59 18:59 Intake Total 240 / 240 Balance 240 / 240 Weight 55.1 kg Intake: Oral 240 / 240 Other: # Voids 2 Date of Last Bowel Movement 03/08/18 03/10/18 # Bowel Movements 1 Narrative: GENERAL: NAD, pleasantly confused oriented to self only NECK: Supple, trachea midline. CARDIO: Regular RESP: Breath sounds equal bilaterally. ABD: Abdomen soft, non-tender, nondistended. EXT: No cyanosis, or edema. Results - Labs CBC & Chem 7: 03/07/18 08:25 03/09/18 08:00 Assessment and Plan - Assessment (1) Altered mental status Code(s): R41.82 - Altered mental status, unspecified Status: Acute Plan: (1) Altered mental status - The patient is a 52 year old female with past medical history which includes Abnormal LFTs, EtOH abuse, chronic back pain, COPD, hypertension, SVT. Patient was brought to [facility] on 12/13 by friend for confusion x 2 weeks weakness and flu like symptoms. Patient was admitted to [facility] from 12/13/17 to 12/18/17 treated for metabolic encephalopathy related to UTI and then DC'd to [facility]. Patient was seen in the emergency department related to altered mentation and anemia . The patient at that time was had hemoglobin of 9.3 and her rectal examination was negative for blood. She was deemed safe for discharge with follow-up as an outpatient. Patient again presented to the ER 12/25/17 for increased altered mentation since falling at her snf at approximately 8 :15 AM 12/25. The patient has a baseline history of altered mentation that is thought to be related to her history of alcohol abuse and Wernicke's encephalopathy. - CT head negative - CXR reviewed the lungs are clear - UA does not indicate UTI, no culture indicated - Patient has ETOH abuse - [facility] protocol - Cont. folic acid and thiamine - Ammonia level 15 - TSH 3.710 - RPR nonreactive - EtOH use and review of prior records patient had been drinking 1.5-2 bottles of wine a day and had been decreasing intake. Patient has recently been admitted to [facility] possibility of EtOH withdrawal causing altered mental status. - PT evaluated - Appreciate Psych evaluation. They did not feel that the patient met criteria for involuntary psychiatric admission. It was felt that the pt may benefit from comprehensive inpatient/outpatient alcohol rehabilitation program. - Supportive care - DC order placed on 12/27/17- case management working on safe DC - CM has enlisted help from Adult Protective Services. No progress has been made to obtain an accepting facility. - Psychiatry re-evaluated 01/08/18- patient does not meet inpatient psych admission criteria - 02/10/18 increase Seroquel to 100 mg PO QHS - Re-consulted psych for competency evaluation, and they declared pt not competent to make her own medical decisions. - [place] [facility] assisting with Medicaid disability application and discharge planning. Discussed with CM on 02/17/18 and pts medicaid application at this point has not been approved so awaiting approval to try to find placement. - Review of CM notes from 02/27/18 note that the pts mother will be meeting with Kishore form [employer] on Sunday @2:30 to complete application - Discussed with RN. - Pt has NO new clinical medical issues - continue to await safe discharge arrangements. (2) Anemia - On admission hgb 7.8, Hct 23.7, MCV 105.1 - 12/27/2017 hemoglobin improved 8.4 - 01/07/18 hemoglobin 10.3, Hct 31.2, MCV 101.9 - patient does have hx of ETOH abuse - B12 359 and folic acid 12.2 - Iron 48, total iron-binding capacity 183, percent saturation 26.2 - GI was consulted for possible EGD but unable to get consent so was recommended for outpt followup (3) Hypomagnesemia - magnesium 1.3 on admission - Pt was given replacement (4) Tachyarrhythmia - Pt with history of tachyarrhythmia - s/p EPS with ablation of AV re-entry node tachycardia Dr. Vazquez 2016 - Pt started on Metoprolol 25mg po BID with initial improvement in HR - increased metoprolol to 50mg BID on 6/8/18, HR stable (5) ETOH abuse - [facility] protocol - thiamine and folic acid - seizure precautions (6) COPD (chronic obstructive pulmonary disease) - Does not appear to be in acute exacerbation - duonebs if needed (7) HTN (hypertension) - Blood pressure was elevated during admission - Pt was initially started on amlodipine 5 mg p.o. daily but with tachyarrhythmia the Norvasc was stopped and Metoprolol added - BP has been running low will decrease metoprolol to 25 mg PO BID with hold parameters (03/07/18) BUN 28, creatinine 1.38, GFR 40 encourage PO hydration (03/09/18) recheck BMP appears stable continue to encourage PO fluid intake The exam, history, and the medical decision-making described in the above note were completed with the assistance of the mid-level provider. I reviewed and agree with the findings presented. I attest that I had a [id number] encounter with the patient on the same day, and personally performed and documented my assessment and findings in the medical record.
[2018-03-11] MEDS ORDERED: Metoprolol Tartrate 50 MG Tablet PO SCH (10:30)
[2018-03-11] MEDS: QUEtiapine 25 MG Tablet PO SCH (21:14)
--- NOTE | 2018-03-12 10:14 | P.PNIM ---
Subjective Interval history: no events Physical Exam Vital signs: Vital Signs 03/11/18 20:00 Temperature 98 F Pulse Rate 85 Respiratory Rate 16 Blood Pressure 109/65 Pulse Oximetry 95 Intake & Output 03/11/18 03/12/18 03/12/18 18:59 06:59 18:59 Intake Total 240 / 240 Balance 240 / 240 Intake: Oral 240 / 240 Other: # Voids 2 # Bowel Movements 0 heart reg lung cta abd s/nt ext no edema Results - Labs CBC & Chem 7: 03/07/18 08:25 03/09/18 08:00 Assessment and Plan - Assessment (1) Altered mental status Code(s): R41.82 - Altered mental status, unspecified Status: Acute Plan: (1) Altered mental status - The patient is a 52 year old female with past medical history which includes Abnormal LFTs, EtOH abuse, chronic back pain, COPD, hypertension, SVT. Patient was brought to [facility] on 12/13 by friend for confusion x 2 weeks weakness and flu like symptoms. Patient was admitted to [facility] from 12/13/17 to 12/18/17 treated for metabolic encephalopathy related to UTI and then DC'd to [facility]. Patient was seen in the emergency department related to altered mentation and anemia . The patient at that time was had hemoglobin of 9.3 and her rectal examination was negative for blood. She was deemed safe for discharge with follow-up as an outpatient. Patient again presented to the ER 12/25/17 for increased altered mentation since falling at her alf at approximately 8 :15 AM 12/25. The patient has a baseline history of altered mentation that is thought to be related to her history of alcohol abuse and Wernicke's encephalopathy. - CT head negative - CXR reviewed the lungs are clear - UA does not indicate UTI, no culture indicated - Patient has ETOH abuse - [facility] protocol - Cont. folic acid and thiamine - Ammonia level 15 - TSH 3.710 - RPR nonreactive - EtOH use and review of prior records patient had been drinking 1.5-2 bottles of wine a day and had been decreasing intake. Patient has recently been admitted to [facility] possibility of EtOH withdrawal causing altered mental status. - PT evaluated - Appreciate Psych evaluation. They did not feel that the patient met criteria for involuntary psychiatric admission. It was felt that the pt may benefit from comprehensive inpatient/outpatient alcohol rehabilitation program. - Supportive care - DC order placed on 12/27/17- case management working on safe DC - CM has enlisted help from Adult Protective Services. No progress has been made to obtain an accepting facility. - Psychiatry re-evaluated 01/08/18- patient does not meet inpatient psych admission criteria - 02/10/18 increase Seroquel to 100 mg PO QHS - Re-consulted psych for competency evaluation, and they declared pt not competent to make her own medical decisions. - [place] [facility] [employer] assisting with Medicaid disability application and discharge planning. Discussed with CM on 02/17/18 and pts medicaid application at this point has not been approved so awaiting approval to try to find placement. - Review of CM notes from 02/27/18 note that the pts mother will be meeting with Kishore alcaraz [employer] on Sunday @2:30 to complete application - Discussed with RN. - Pt has NO new clinical medical issues - continue to await safe discharge arrangements. (2) Anemia - On admission hgb 7.8, Hct 23.7, MCV 105.1 - 12/27/2017 hemoglobin improved 8.4 - 01/07/18 hemoglobin 10.3, Hct 31.2, MCV 101.9 - patient does have hx of ETOH abuse - B12 359 and folic acid 12.2 - Iron 48, total iron-binding capacity 183, percent saturation 26.2 - GI was consulted for possible EGD but unable to get consent so was recommended for outpt followup (3) Hypomagnesemia - magnesium 1.3 on admission - Pt was given replacement (4) Tachyarrhythmia - Pt with history of tachyarrhythmia - s/p EPS with ablation of AV re-entry node tachycardia Dr. Vazquez 2017 cont current bb dose (5) ETOH abuse - [facility] protocol - thiamine and folic acid - seizure precautions (6) COPD (chronic obstructive pulmonary disease) - Does not appear to be in acute exacerbation - duonebs if needed (7) HTN (hypertension) - Blood pressure was elevated during admission - Pt was initially started on amlodipine 5 mg p.o. daily but with tachyarrhythmia the Norvasc was stopped and Metoprolol added - BP has been running low will decrease metoprolol to 25 mg PO BID with hold parameters (03/07/18) BUN 28, creatinine 1.38, GFR 40 encourage PO hydration (03/09/18) recheck BMP appears stable continue to encourage PO fluid intake
[2018-03-12] MEDS: Senna/Docusate Sodium 8.6/50 MG Tablet PO SCH ×2 (10:19→20:26)
[2018-03-12] MEDS: Metoprolol Tartrate 50 MG Tablet PO SCH ×2 (10:19→20:25)
[2018-03-12] MEDS: QUEtiapine 25 MG Tablet PO SCH (20:26)
[2018-03-13] MEDS: Senna/Docusate Sodium 8.6/50 MG Tablet PO SCH ×2 (09:51→20:43)
[2018-03-13] MEDS: Metoprolol Tartrate 50 MG Tablet PO SCH ×2 (09:51→20:43)
--- NOTE | 2018-03-13 10:09 | P.PNIM ---
Subjective Interval history: doing ok. no events. Physical Exam Vital signs: Vital Signs 03/12/18 20:00 Temperature 97.6 F Pulse Rate 75 Respiratory Rate 16 Blood Pressure 114/60 Pulse Oximetry 98 Intake & Output 03/12/18 03/13/18 03/13/18 18:59 06:59 18:59 Intake Total 600 / 600 240 / 240 Balance 600 / 600 240 / 240 Weight 55.6 kg Intake: Oral 600 / 600 240 / 240 Other: # Voids 1 2 Date of Last Bowel Movement 03/12/18 # Bowel Movements 0 1 heart reg lung cta abd s/nt ext no edema Results - Labs CBC & Chem 7: 03/07/18 08:25 03/09/18 08:00 Assessment and Plan - Assessment (1) Altered mental status Code(s): R41.82 - Altered mental status, unspecified Status: Acute Plan: (1) Altered mental status - The patient is a 52 year old female with past medical history which includes Abnormal LFTs, EtOH abuse, chronic back pain, COPD, hypertension, SVT. Patient was brought to [facility] [place] on 12/13 by friend for confusion x 2 weeks weakness and flu like symptoms. Patient was admitted to [facility] [place] from 12/13/17 to 12/18/17 treated for metabolic encephalopathy related to UTI and then DC'd to [facility]. Patient was seen in the emergency department related to altered mentation and anemia . The patient at that time was had hemoglobin of 9.3 and her rectal examination was negative for blood. She was deemed safe for discharge with follow-up as an outpatient. Patient again presented to the ER 12/25/17 for increased altered mentation since [facility] at approximately 8 :15 AM 12/25. The patient has a baseline history of altered mentation that is thought to be related to her history of alcohol abuse and Wernicke's encephalopathy. - CT head negative - CXR reviewed the lungs are clear - UA does not indicate UTI, no culture indicated - Patient has ETOH abuse - [facility] protocol - Cont. folic acid and thiamine - Ammonia level 15 - TSH 3.710 - RPR nonreactive - EtOH use and review of prior records patient had been drinking 1.5-2 bottles of wine a day and had been decreasing intake. Patient has recently been admitted to [facility] possibility of EtOH withdrawal causing altered mental status. - PT evaluated - Appreciate Psych evaluation. They did not feel that the patient met criteria for involuntary psychiatric admission. It was felt that the pt may benefit from comprehensive inpatient/outpatient alcohol rehabilitation program. - Supportive care - DC order placed on 12/27/17- case management working on safe DC - CM has enlisted help from Adult Protective Services. No progress has been made to obtain an accepting facility. - Psychiatry re-evaluated 01/08/18- patient does not meet inpatient psych admission criteria - 02/10/18 increase Seroquel to 100 mg PO QHS - Re-consulted psych for competency evaluation, and they declared pt not competent to make her own medical decisions. - [place] [employer] assisting with Medicaid disability application and discharge planning. Discussed with CM on 02/17/18 and pts medicaid application at this point has not been approved so awaiting approval to try to find placement. - Review of CM notes from 02/27/18 note that the pts mother will be meeting with Kishore form [employer] on Sunday @2:30 to complete application - Discussed with RN. - Pt has NO new clinical medical issues - continue to await safe discharge arrangements. cont current rx (2) Anemia - On admission hgb 7.8, Hct 23.7, MCV 105.1 - 12/27/2017 hemoglobin improved 8.4 - 01/07/18 hemoglobin 10.3, Hct 31.2, MCV 101.9 - patient does have hx of ETOH abuse - B12 359 and folic acid 12.2 - Iron 48, total iron-binding capacity 183, percent saturation 26.2 - GI was consulted for possible EGD but unable to get consent so was recommended for outpt followup (3) Hypomagnesemia - magnesium 1.3 on admission - Pt was given replacement (4) Tachyarrhythmia - Pt with history of tachyarrhythmia - s/p EPS with ablation of AV re-entry node tachycardia Dr. Vazquez 2016 cont current bb dose (5) ETOH abuse - [facility] protocol - thiamine and folic acid - seizure precautions (6) COPD (chronic obstructive pulmonary disease) - Does not appear to be in acute exacerbation - duonebs if needed (7) HTN (hypertension) - Blood pressure was elevated during admission - Pt was initially started on amlodipine 5 mg p.o. daily but with tachyarrhythmia the Norvasc was stopped and Metoprolol added - BP has been running low will decrease metoprolol to 25 mg PO BID with hold parameters (03/07/18) BUN 28, creatinine 1.38, GFR 40 encourage PO hydration (03/09/18) recheck BMP appears stable continue to encourage PO fluid intake
[2018-03-13] MEDS: QUEtiapine 25 MG Tablet PO SCH (20:43)
[2018-03-14] MEDS: Metoprolol Tartrate 50 MG Tablet PO SCH ×2 (08:42→20:04)
[2018-03-14] MEDS: Senna/Docusate Sodium 8.6/50 MG Tablet PO SCH ×2 (08:44→20:04)
--- NOTE | 2018-03-14 12:20 | P.PNIM ---
Subjective Interval history: doing ok. no events Physical Exam Vital signs: Vital Signs 03/13/18 20:00 03/14/18 08:00 Temperature 98.5 F 97.9 F Pulse Rate 88 87 Respiratory Rate 18 17 Blood Pressure 114/70 95/46 L Pulse Oximetry 96 97 Intake & Output 03/13/18 03/14/18 03/14/18 18:59 06:59 18:59 Intake Total 840 / 840 240 / 240 Output Total 1000 / 1000 Balance -160 / -160 240 / 240 Weight 57.9 kg Intake: Oral 840 / 840 240 / 240 Output: Urine 1000 / 1000 Other: # Voids 1 Date of Last Bowel Movement 03/12/18 03/12/18 # Bowel Movements 1 heart reg lung cta abd s/nt ext no edema Results - Labs CBC & Chem 7: 03/07/18 08:25 03/09/18 08:00 Assessment and Plan - Assessment (1) Altered mental status Code(s): R41.82 - Altered mental status, unspecified Status: Acute Plan: (1) Altered mental status - The patient is a 52 year old female with past medical history which includes Abnormal LFTs, EtOH abuse, chronic back pain, COPD, hypertension, SVT. Patient was brought to [facility] on 12/13 by friend for confusion x 2 weeks weakness and flu like symptoms. Patient was admitted to [facility] from 12/13/17 to 12/18/17 treated for metabolic encephalopathy related to UTI and then DC'd to [facility]. Patient was seen in the emergency department related to altered mentation and anemia . The patient at that time was had hemoglobin of 9.3 and her rectal examination was negative for blood. She was deemed safe for discharge with follow-up as an outpatient. Patient again presented to the ER 12/25/17 for increased altered mentation since falling at her assisted at approximately 8 :15 AM 12/25. The patient has a baseline history of altered mentation that is thought to be related to her history of alcohol abuse and Wernicke's encephalopathy. - CT head negative - CXR reviewed the lungs are clear - UA does not indicate UTI, no culture indicated - Patient has ETOH abuse - [facility] protocol - Cont. folic acid and thiamine - Ammonia level 15 - TSH 3.710 - RPR nonreactive - EtOH use and review of prior records patient had been drinking 1.5-2 bottles of wine a day and had been decreasing intake. Patient has recently been admitted to [facility] possibility of EtOH withdrawal causing altered mental status. - PT evaluated - Appreciate Psych evaluation. They did not feel that the patient met criteria for involuntary psychiatric admission. It was felt that the pt may benefit from comprehensive inpatient/outpatient alcohol rehabilitation program. - Supportive care - DC order placed on 12/27/17- case management working on safe DC - CM has enlisted help from Adult Prote[employer] Services. No progress has been made to obtain an accepting facility. - Psychiatry re-evaluated 01/08/18- patient does not meet inpatient psych admission criteria - 02/10/18 increase Seroquel to 100 mg PO QHS - Re-consulted psych for competency evaluation, and they declared pt not competent to make her own medical decisions. - [place] [employer] assisting with Medicaid disability application and discharge planning. Discussed with CM on 02/17/18 and pts medicaid application at this point has not been approved so awaiting approval to try to find placement. - Review of CM notes from 02/27/18 note that the pts mother will be meeting with Kishore form [employer] on Sunday @2:30 to complete application - Discussed with RN. - Pt has NO new clinical medical issues - continue to await safe discharge arrangements. cont current rx. (2) Anemia - On admission hgb 7.8, Hct 23.7, MCV 105.1 - 12/27/2017 hemoglobin improved 8.4 - 01/07/18 hemoglobin 10.3, Hct 31.2, MCV 101.9 - patient does have hx of ETOH abuse - B12 359 and folic acid 12.2 - Iron 48, total iron-binding capacity 183, percent saturation 26.2 - GI was consulted for possible EGD but unable to get consent so was recommended for outpt followup (3) Hypomagnesemia - magnesium 1.3 on admission - Pt was given replacement (4) Tachyarrhythmia - Pt with history of tachyarrhythmia - s/p EPS with ablation of AV re-entry node tachycardia Dr. Vazquez 2016 cont current bb dose (5) ETOH abuse - [facility] protocol - thiamine and folic acid - seizure precautions (6) COPD (chronic obstructive pulmonary disease) - Does not appear to be in acute exacerbation - duonebs if needed (7) HTN (hypertension) - Blood pressure was elevated during admission - Pt was initially started on amlodipine 5 mg p.o. daily but with tachyarrhythmia the Norvasc was stopped and Metoprolol added - BP has been running low will decrease metoprolol to 25 mg PO BID with hold parameters (03/07/18) BUN 28, creatinine 1.38, GFR 40 encourage PO hydration (03/09/18) recheck BMP appears stable continue to encourage PO fluid intake
[2018-03-14] MEDS: QUEtiapine 25 MG Tablet PO SCH (20:04)
[2018-03-15] MEDS: Senna/Docusate Sodium 8.6/50 MG Tablet PO SCH ×2 (09:05→21:23)
[2018-03-15] MEDS: Metoprolol Tartrate 50 MG Tablet PO SCH ×2 (09:05→21:23)
--- NOTE | 2018-03-15 11:23 | P.PNIM ---
Subjective Interval history: no new events. Physical Exam Vital signs: Vital Signs 03/14/18 19:55 03/15/18 08:00 Temperature 98.6 F 97.1 F L Pulse Rate 93 H 63 Respiratory Rate 18 18 Blood Pressure 104/63 111/71 Pulse Oximetry 98 98 Intake & Output 03/14/18 03/15/18 03/15/18 18:59 06:59 18:59 Intake Total 240 / 240 Balance 240 / 240 Weight 55.7 kg Intake: Oral 240 / 240 Other: # Voids 2 heart reg lung cta abd s/nt ext no edema Results - Labs CBC & Chem 7: 03/07/18 08:25 03/09/18 08:00 Assessment and Plan - Assessment (1) Altered mental status Code(s): R41.82 - Altered mental status, unspecified Status: Acute Plan: (1) Altered mental status - The patient is a 52 year old female with past medical history which includes Abnormal LFTs, EtOH abuse, chronic back pain, COPD, hypertension, SVT. Patient was brought to [facility] on 12/13 by friend for confusion x 2 weeks weakness and flu like symptoms. Patient was admitted to [facility] from 12/13/17 to 12/18/17 treated for metabolic encephalopathy related to UTI and then DC'd to [facility]. Patient was seen in the emergency department related to altered mentation and anemia . The patient at that time was had hemoglobin of 9.3 and her rectal examination was negative for blood. She was deemed safe for discharge with follow-up as an outpatient. Patient again presented to the ER 12/25/17 for increased altered mentation since [facility] at approximately 8 :15 AM 12/25. The patient has a baseline history of altered mentation that is thought to be related to her history of alcohol abuse and Wernicke's encephalopathy. - CT head negative - CXR reviewed the lungs are clear - UA does not indicate UTI, no culture indicated - Patient has ETOH abuse - [facility] protocol - Cont. folic acid and thiamine - Ammonia level 15 - TSH 3.710 - RPR nonreactive - EtOH use and review of prior records patient had been drinking 1.5-2 bottles of wine a day and had been decreasing intake. Patient has recently been admitted to [facility] [place] possibility of EtOH withdrawal causing altered mental status. - PT evaluated - Appreciate Psych evaluation. They did not feel that the patient met criteria for involuntary psychiatric admission. It was felt that the pt may benefit from comprehensive inpatient/outpatient alcohol rehabilitation program. - Supportive care - DC order placed on 12/27/17- case management working on safe DC - CM has enlisted help from Adult Prote[employer] Services. No progress has been made to obtain an accepting facility. - Psychiatry re-evaluated 01/08/18- patient does not meet inpatient psych admission criteria - 02/10/18 increase Seroquel to 100 mg PO QHS - Re-consulted psych for competency evaluation, and they declared pt not competent to make her own medical decisions. - [place] [employer] assisting with Medicaid disability application and discharge planning. Discussed with CM on 02/17/18 and pts medicaid application at this point has not been approved so awaiting approval to try to find placement. - Review of CM notes from 02/27/18 note that the pts mother will be meeting with Kishore form [employer] on Sunday @2:30 to complete application - Discussed with RN. - Pt has NO new clinical medical issues - continue to await safe discharge arrangements. cont current rx. (2) Anemia - On admission hgb 7.8, Hct 23.7, MCV 105.1 - 12/27/2017 hemoglobin improved 8.4 - 01/07/18 hemoglobin 10.3, Hct 31.2, MCV 101.9 - patient does have hx of ETOH abuse - B12 359 and folic acid 12.2 - Iron 48, total iron-binding capacity 183, percent saturation 26.2 - GI was consulted for possible EGD but unable to get consent so was recommended for outpt followup (3) Hypomagnesemia - magnesium 1.3 on admission - Pt was given replacement (4) Tachyarrhythmia - Pt with history of tachyarrhythmia - s/p EPS with ablation of AV re-entry node tachycardia Dr. Vazquez 2016 cont current bb dose (5) ETOH abuse - [facility] protocol - thiamine and folic acid - seizure precautions (6) COPD (chronic obstructive pulmonary disease) - Does not appear to be in acute exacerbation - duonebs if needed (7) HTN (hypertension) - Blood pressure was elevated during admission - Pt was initially started on amlodipine 5 mg p.o. daily but with tachyarrhythmia the Norvasc was stopped and Metoprolol added - BP has been running low will decrease metoprolol to 25 mg PO BID with hold parameters (03/07/18) BUN 28, creatinine 1.38, GFR 40 encourage PO hydration (03/09/18) recheck BMP appears stable continue to encourage PO fluid intake
[2018-03-15] MEDS: QUEtiapine 25 MG Tablet PO SCH (21:23)
[2018-03-16] MEDS: Senna/Docusate Sodium 8.6/50 MG Tablet PO SCH ×2 (09:39→21:22)
[2018-03-16] MEDS: Metoprolol Tartrate 50 MG Tablet PO SCH ×2 (09:39→21:22)
--- NOTE | 2018-03-16 11:49 | P.PNIM ---
Subjective Interval history: no events Physical Exam Vital signs: Vital Signs 03/16/18 02:25 Temperature 97.5 F L Pulse Rate 77 Respiratory Rate 18 Blood Pressure 139/85 Pulse Oximetry 99 Intake & Output 03/15/18 03/16/18 03/16/18 18:59 06:59 18:59 Intake Total 240 / 240 Balance 240 / 240 Weight 57.5 kg Intake: Oral 240 / 240 Other: # Voids 2 Date of Last Bowel Movement 03/12/18 heart reg lung cta abd s/nt ext no edema Results - Labs CBC & Chem 7: 03/07/18 08:25 03/09/18 08:00 Assessment and Plan - Assessment (1) Altered mental status Code(s): R41.82 - Altered mental status, unspecified Status: Acute Plan: (1) Altered mental status - The patient is a 52 year old female with past medical history which includes Abnormal LFTs, EtOH abuse, chronic back pain, COPD, hypertension, SVT. Patient was brought to [facility] on 12/13 by friend for confusion x 2 weeks weakness and flu like symptoms. Patient was admitted to [facility] from 12/13/17 to 12/18/17 treated for metabolic encephalopathy related to UTI and then DC'd to [facility]. Patient was seen in the emergency department related to altered mentation and anemia . The patient at that time was had hemoglobin of 9.3 and her rectal examination was negative for blood. She was deemed safe for discharge with follow-up as an outpatient. Patient again presented to the ER 12/25/17 for increased altered mentation since falling at her detention at approximately 8 :15 AM 12/25. The patient has a baseline history of altered mentation that is thought to be related to her history of alcohol abuse and Wernicke's encephalopathy. - CT head negative - CXR reviewed the lungs are clear - UA does not indicate UTI, no culture indicated - Patient has ETOH abuse - [facility] protocol - Cont. folic acid and thiamine - Ammonia level 15 - TSH 3.710 - RPR nonreactive - EtOH use and review of prior records patient had been drinking 1.5-2 bottles of wine a day and had been decreasing intake. Patient has recently been admitted to [facility] possibility of EtOH withdrawal causing altered mental status. - PT evaluated - Appreciate Psych evaluation. They did not feel that the patient met criteria for involuntary psychiatric admission. It was felt that the pt may benefit from comprehensive inpatient/outpatient alcohol rehabilitation program. - Supportive care - DC order placed on 12/27/17- case management working on safe DC - CM has enlisted help from Adult Prote[employer] Services. No progress has been made to obtain an accepting facility. - Psychiatry re-evaluated 01/08/18- patient does not meet inpatient psych admission criteria - 02/10/18 increase Seroquel to 100 mg PO QHS - Re-consulted psych for competency evaluation, and they declared pt not competent to make her own medical decisions. - [place] [employer] assisting with Medicaid disability application and discharge planning. Discussed with CM on 02/17/18 and pts medicaid application at this point has not been approved so awaiting approval to try to find placement. - Review of CM notes from 02/27/18 note that the pts mother will be meeting with Kishore form [employer] on Sunday @2:30 to complete application - Discussed with RN. - Pt has NO new clinical medical issues - continue to await safe discharge arrangements. cont current rx. (2) Anemia - On admission hgb 7.8, Hct 23.7, MCV 105.1 - 12/27/2017 hemoglobin improved 8.4 - 01/07/18 hemoglobin 10.3, Hct 31.2, MCV 101.9 - patient does have hx of ETOH abuse - B12 359 and folic acid 12.2 - Iron 48, total iron-binding capacity 183, percent saturation 26.2 - GI was consulted for possible EGD but unable to get consent so was recommended for outpt followup (3) Hypomagnesemia - magnesium 1.3 on admission - Pt was given replacement (4) Tachyarrhythmia - Pt with history of tachyarrhythmia - s/p EPS with ablation of AV re-entry node tachycardia Dr. Vazquez 2016 cont current bb dose (5) ETOH abuse - [facility] protocol - thiamine and folic acid - seizure precautions (6) COPD (chronic obstructive pulmonary disease) - Does not appear to be in acute exacerbation - duonebs if needed (7) HTN (hypertension) - Blood pressure was elevated during admission - Pt was initially started on amlodipine 5 mg p.o. daily but with tachyarrhythmia the Norvasc was stopped and Metoprolol added - BP has been running low will decrease metoprolol to 25 mg PO BID with hold parameters (03/07/18) BUN 28, creatinine 1.38, GFR 40 encourage PO hydration (03/09/18) recheck BMP appears stable continue to encourage PO fluid intake
[2018-03-16] MEDS: QUEtiapine 25 MG Tablet PO SCH (21:22)
[2018-03-17] MEDS: Metoprolol Tartrate 50 MG Tablet PO SCH ×2 (08:19→21:30)
[2018-03-17] MEDS: Senna/Docusate Sodium 8.6/50 MG Tablet PO SCH ×2 (08:19→21:30)
--- NOTE | 2018-03-17 10:06 | P.PNIM ---
Subjective Interval history: no new problems Physical Exam Vital signs: Vital Signs 03/16/18 20:00 Temperature 98.7 F Pulse Rate 106 H Respiratory Rate 18 Blood Pressure 149/83 H Pulse Oximetry 94 L Intake & Output 03/16/18 03/17/18 03/17/18 18:59 06:59 18:59 Intake Total 360 / 360 Balance 360 / 360 Weight 57.8 kg Intake: Oral 360 / 360 Other: # Voids 2 Date of Last Bowel Movement 03/12/18 03/12/18 # Bowel Movements 0 heart reg lung cta abd s/nt ext no edema Results - Labs CBC & Chem 7: 03/07/18 08:25 03/09/18 08:00 Assessment and Plan - Assessment (1) Altered mental status Code(s): R41.82 - Altered mental status, unspecified Status: Acute Plan: (1) Altered mental status - The patient is a 52 year old female with past medical history which includes Abnormal LFTs, EtOH abuse, chronic back pain, COPD, hypertension, SVT. Patient was brought to [facility] on 12/13 by friend for confusion x 2 weeks weakness and flu like symptoms. Patient was admitted to [facility] from 12/13/17 to 12/18/17 treated for metabolic encephalopathy related to UTI and then DC'd to [facility]. Patient was seen in the emergency department related to altered mentation and anemia . The patient at that time was had hemoglobin of 9.3 and her rectal examination was negative for blood. She was deemed safe for discharge with follow-up as an outpatient. Patient again presented to the ER 12/25/17 for increased altered mentation since falling [facility] her [facility] at approximately 8 :15 AM 12/25. The patient has a baseline history of altered mentation that is thought to be related to her history of alcohol abuse and Wernicke's encephalopathy. - CT head negative - CXR reviewed the lungs are clear - UA does not indicate UTI, no culture indicated - Patient has ETOH abuse - [facility] protocol - Cont. folic acid and thiamine - Ammonia level 15 - TSH 3.710 - RPR nonreactive - EtOH use and review of prior records patient had been drinking 1.5-2 bottles of wine a day and had been decreasing intake. Patient has recently been admitted to [facility] possibility of EtOH withdrawal causing altered mental status. - PT evaluated - Appreciate Psych evaluation. They did not feel that the patient met criteria for involuntary psychiatric admission. It was felt that the pt may benefit from comprehensive inpatient/outpatient alcohol rehabilitation program. - Supportive care - DC order placed on 12/27/17- case management working on safe DC - CM has enlisted help from Adult Prote[employer] Services. No progress has been made to obtain an accepting facility. - Psychiatry re-evaluated 01/08/18- patient does not meet inpatient psych admission criteria - 02/10/18 increase Seroquel to 100 mg PO QHS - Re-consulted psych for competency evaluation, and they declared pt not competent to make her own medical decisions. - [place] [employer] assisting with Medicaid disability application and discharge planning. Discussed with CM on 02/17/18 and pts medicaid application at this point has not been approved so awaiting approval to try to find placement. - Review of CM notes from 02/27/18 note that the pts mother will be meeting with Kishore form [employer] on Sunday @2:30 to complete application - Discussed with RN. - Pt has NO new clinical medical issues - continue to await safe discharge arrangements. no changes. (2) Anemia - On admission hgb 7.8, Hct 23.7, MCV 105.1 - 12/27/2017 hemoglobin improved 8.4 - 01/07/18 hemoglobin 10.3, Hct 31.2, MCV 101.9 - patient does have hx of ETOH abuse - B12 359 and folic acid 12.2 - Iron 48, total iron-binding capacity 183, percent saturation 26.2 - GI was consulted for possible EGD but unable to get consent so was recommended for outpt followup (3) Hypomagnesemia - magnesium 1.3 on admission - Pt was given replacement (4) Tachyarrhythmia - Pt with history of tachyarrhythmia - s/p EPS with ablation of AV re-entry node tachycardia Dr. Vazquez 2017 cont current bb dose (5) ETOH abuse - [facility] protocol - thiamine and folic acid - seizure precautions (6) COPD (chronic obstructive pulmonary disease) - Does not appear to be in acute exacerbation - duonebs if needed (7) HTN (hypertension) - Blood pressure was elevated during admission - Pt was initially started on amlodipine 5 mg p.o. daily but with tachyarrhythmia the Norvasc was stopped and Metoprolol added - BP has been running low will decrease metoprolol to 25 mg PO BID with hold parameters (03/07/18) BUN 28, creatinine 1.38, GFR 40 encourage PO hydration (03/09/18) recheck BMP appears stable continue to encourage PO fluid intake
[2018-03-17] MEDS: QUEtiapine 25 MG Tablet PO SCH (21:30)
[2018-03-18] MEDS: Metoprolol Tartrate 50 MG Tablet PO SCH ×2 (08:19→20:45)
[2018-03-18] MEDS: Senna/Docusate Sodium 8.6/50 MG Tablet PO SCH ×2 (08:19→20:45)
--- NOTE | 2018-03-18 10:09 | P.PNIM ---
Subjective Interval history: Patient resting in bed offers no new concerns/complaints continues to be pleasantly confused Physical Exam Vital signs: Vital Signs 03/17/18 20:00 03/18/18 08:00 Temperature 98.1 F 98.0 F Pulse Rate 71 70 Respiratory Rate 18 18 Blood Pressure 93/66 L 94/84 L Pulse Oximetry 98 94 L Intake & Output 03/17/18 03/18/18 03/18/18 18:59 06:59 18:59 Intake Total 480 / 480 Balance 480 / 480 Weight 57.8 kg Intake: Oral 480 / 480 Other: # Voids 2 Date of Last Bowel Movement 03/12/18 # Bowel Movements 0 Narrative: GENERAL: NAD, pleasantly confused oriented to self only NECK: Supple, trachea midline. CARDIO: Regular RESP: Breath sounds equal bilaterally. ABD: Abdomen soft, non-tender, nondistended. EXT: No cyanosis, or edema. Results - Labs CBC & Chem 7: 03/07/18 08:25 03/09/18 08:00 Assessment and Plan - Assessment (1) Altered mental status Code(s): R41.82 - Altered mental status, unspecified Status: Acute Plan: (1) Altered mental status - The patient is a 52 year old female with past medical history which includes Abnormal LFTs, EtOH abuse, chronic back pain, COPD, hypertension, SVT. Patient was brought to [facility] on 12/13 by friend for confusion x 2 weeks weakness and flu like symptoms. Patient was admitted to [facility] from 12/13/17 to 12/18/17 treated for metabolic encephalopathy related to UTI and then DC'd to [facility]. Patient was seen in the emergency department related to altered mentation and anemia . The patient at that time was had hemoglobin of 9.3 and her rectal examination was negative for blood. She was deemed safe for discharge with follow-up as an outpatient. Patient again presented to the ER 12/25/17 for increased altered mentation since falling at her skilled nursing at approximately 8 :15 AM 12/25. The patient has a baseline history of altered mentation that is thought to be related to her history of alcohol abuse and Wernicke's encephalopathy. - CT head negative - CXR reviewed the lungs are clear - UA does not indicate UTI, no culture indicated - Patient has ETOH abuse - [facility] protocol - Cont. folic acid and thiamine - Ammonia level 15 - TSH 3.710 - RPR nonreactive - EtOH use and review of prior records patient had been drinking 1.5-2 bottles of wine a day and had been decreasing intake. Patient has recently been admitted to [facility] nursing [facility] possibility of EtOH withdrawal causing altered mental status. - PT evaluated - Appreciate Psych evaluation. They did not feel that the patient met criteria for involuntary psychiatric admission. It was felt that the pt may benefit from comprehensive inpatient/outpatient alcohol rehabilitation program. - Supportive care - DC order placed on 12/27/17- case management working on safe DC - CM has enlisted help from Adult Protective Services. No progress has been made to obtain an accepting facility. - Psychiatry re-evaluated 01/08/18- patient does not meet inpatient psych admission criteria - 02/10/18 increase Seroquel to 100 mg PO QHS - Re-consulted psych for competency evaluation, and they declared pt not competent to make her own medical decisions. - [place] [facility] assisting with Medicaid disability application and discharge planning. Discussed with CM on 02/17/18 and pts medicaid application at this point has not been approved so awaiting approval to try to find placement. - Review of CM notes from 02/27/18 note that the pts mother will be meeting with Kishore form [employer] on Sunday @2:30 to complete application - Discussed with RN. - Pt has NO new clinical medical issues - continue to await safe discharge arrangements. no changes. (2) Anemia - On admission hgb 7.8, Hct 23.7, MCV 105.1 - 12/27/2017 hemoglobin improved 8.4 - 01/07/18 hemoglobin 10.3, Hct 31.2, MCV 101.9 - patient does have hx of ETOH abuse - B12 359 and folic acid 12.2 - Iron 48, total iron-binding capacity 183, percent saturation 26.2 - GI was consulted for possible EGD but unable to get consent so was recommended for outpt followup (3) Hypomagnesemia - magnesium 1.3 on admission - Pt was given replacement (4) Tachyarrhythmia - Pt with history of tachyarrhythmia - s/p EPS with ablation of AV re-entry node tachycardia Dr. Vazquez 2017 cont current bb dose (5) ETOH abuse - [facility] protocol - thiamine and folic acid - seizure precautions (6) COPD (chronic obstructive pulmonary disease) - Does not appear to be in acute exacerbation - duonebs if needed (7) HTN (hypertension) - Blood pressure was elevated during admission - Pt was initially started on amlodipine 5 mg p.o. daily but with tachyarrhythmia the Norvasc was stopped and Metoprolol added - BP has been running low will decrease metoprolol to 25 mg PO BID with hold parameters (03/07/18) BUN 28, creatinine 1.38, GFR 40 encourage PO hydration (03/09/18) recheck BMP appears stable continue to encourage PO fluid intake
[2018-03-18] MEDS: QUEtiapine 25 MG Tablet PO SCH (20:45)
[2018-03-19] MEDS: Metoprolol Tartrate 50 MG Tablet PO SCH ×2 (09:48→21:46)
[2018-03-19] MEDS: Senna/Docusate Sodium 8.6/50 MG Tablet PO SCH ×2 (09:49→21:46)
--- NOTE | 2018-03-19 18:30 | P.PNIM ---
Subjective Interval history: Patient remains pleasantly confused no new concerns/complaints Physical Exam Vital signs: Vital Signs 03/18/18 20:00 03/19/18 08:00 Temperature 98.0 F 98.0 F Pulse Rate 77 71 Respiratory Rate 17 18 Blood Pressure 102/66 112/67 Pulse Oximetry 98 99 Intake & Output 03/18/18 03/19/18 03/19/18 18:59 06:59 18:59 Intake Total 480 / 480 600 / 600 Balance 480 / 480 600 / 600 Weight 58.8 kg Intake: Oral 480 / 480 600 / 600 Other: # Voids 2 2 Date of Last Bowel Movement 03/12/18 Narrative: GENERAL: NAD, pleasantly confused oriented to self only NECK: Supple, trachea midline. CARDIO: Regular RESP: Breath sounds equal bilaterally. ABD: Abdomen soft, non-tender, nondistended. EXT: No cyanosis, or edema. Results - Labs CBC & Chem 7: 03/07/18 08:25 03/09/18 08:00 Assessment and Plan - Assessment (1) Altered mental status Code(s): R41.82 - Altered mental status, unspecified Status: Acute Plan: (1) Altered mental status - The patient is a 52 year old female with past medical history which includes Abnormal LFTs, EtOH abuse, chronic back pain, COPD, hypertension, SVT. Patient was brought to [facility] on 12/13 by friend for confusion x 2 weeks weakness and flu like symptoms. Patient was admitted to [facility] from 12/13/17 to 12/18/17 treated for metabolic encephalopathy related to UTI and then DC'd to [facility]. Patient was seen in the emergency department related to altered mentation and anemia . The patient at that time was had hemoglobin of 9.3 and her rectal examination was negative for blood. She was deemed safe for discharge with follow-up as an outpatient. Patient again presented to the ER 12/25/17 for increased altered mentation since falling at her [facility] at approximately 8 :15 AM 12/25. The patient has a baseline history of altered mentation that is thought to be related to her history of alcohol abuse and Wernicke's encephalopathy. - CT head negative - CXR reviewed the lungs are clear - UA does not indicate UTI, no culture indicated - Patient has ETOH abuse - [facility] protocol - Cont. folic acid and thiamine - Ammonia level 15 - TSH 3.710 - RPR nonreactive - EtOH use and review of prior records patient had been drinking 1.5-2 bottles of wine a day and had been decreasing intake. Patient has recently been admitted to [facility] nursing [facility] possibility of EtOH withdrawal causing altered mental status. - PT evaluated - Appreciate Psych evaluation. They did not feel that the patient met criteria for involuntary psychiatric admission. It was felt that the pt may benefit from comprehensive inpatient/outpatient alcohol rehabilitation program. - Supportive care - DC order placed on 12/27/17- case management working on safe DC - CM has enlisted help from Adult Protective Services. No progress has been made to obtain an accepting facility. - Psychiatry re-evaluated 01/08/18- patient does not meet inpatient psych admission criteria - 02/10/18 increase Seroquel to 100 mg PO QHS - Re-consulted psych for competency evaluation, and they declared pt not competent to make her own medical decisions. - [place] [facility] assisting with Medicaid disability application and discharge planning. Discussed with CM on 02/17/18 and pts medicaid application at this point has not been approved so awaiting approval to try to find placement. - Review of CM notes from 02/27/18 note that the pts mother will be meeting with Kishore form [employer] on Sunday @2:30 to complete application - Discussed with RN. - Pt has NO new clinical medical issues - continue to await safe discharge arrangements. no changes. (2) Anemia - On admission hgb 7.8, Hct 23.7, MCV 105.1 - 12/27/2017 hemoglobin improved 8.4 - 01/07/18 hemoglobin 10.3, Hct 31.2, MCV 101.9 - patient does have hx of ETOH abuse - B12 359 and folic acid 12.2 - Iron 48, total iron-binding capacity 183, percent saturation 26.2 - GI was consulted for possible EGD but unable to get consent so was recommended for outpt followup (3) Hypomagnesemia - magnesium 1.3 on admission - Pt was given replacement (4) Tachyarrhythmia - Pt with history of tachyarrhythmia - s/p EPS with ablation of AV re-entry node tachycardia Dr. Vazquez 2016 cont current bb dose (5) ETOH abuse - [facility] protocol - thiamine and folic acid - seizure precautions (6) COPD (chronic obstructive pulmonary disease) - Does not appear to be in acute exacerbation - duonebs if needed (7) HTN (hypertension) - Blood pressure was elevated during admission - Pt was initially started on amlodipine 5 mg p.o. daily but with tachyarrhythmia the Norvasc was stopped and Metoprolol added - BP has been running low will decrease metoprolol to 25 mg PO BID with hold parameters (03/07/18) BUN 28, creatinine 1.38, GFR 40 encourage PO hydration (03/09/18) recheck BMP appears stable continue to encourage PO fluid intake - Attending Attestation Patient examined. Assessment and plan formulated with Betsy BATEMAN I agree with the above.
[2018-03-19] MEDS: QUEtiapine 25 MG Tablet PO SCH (21:46)
[2018-03-20] MEDS: Senna/Docusate Sodium 8.6/50 MG Tablet PO SCH ×2 (08:55→21:01)
[2018-03-20] MEDS: Metoprolol Tartrate 50 MG Tablet PO SCH ×2 (08:55→21:01)
--- NOTE | 2018-03-20 12:34 | P.PNIM ---
Subjective Interval history: patient remains pleasantly confused no new medical concerns awaiting placement Physical Exam Vital signs: Vital Signs 03/19/18 20:00 03/20/18 08:00 Temperature 97.5 F L 98.0 F Pulse Rate 87 79 Respiratory Rate 18 18 Blood Pressure 120/81 133/77 Pulse Oximetry 96 100 Intake & Output 03/19/18 03/20/18 03/20/18 18:59 06:59 18:59 Intake Total 600 / 600 240 / 240 Balance 600 / 600 240 / 240 Weight 58.9 kg Intake: Oral 600 / 600 240 / 240 Other: # Voids 2 3 # Bowel Movements 0 Narrative: GENERAL: NAD, pleasantly confused oriented to self only NECK: Supple, trachea midline. CARDIO: Regular RESP: Breath sounds equal bilaterally. ABD: Abdomen soft, non-tender, nondistended. EXT: No cyanosis, or edema. Results - Labs CBC & Chem 7: 03/07/18 08:25 03/09/18 08:00 Assessment and Plan - Assessment (1) Altered mental status Code(s): R41.82 - Altered mental status, unspecified Status: Acute Plan: (1) Altered mental status - The patient is a 52 year old female with past medical history which includes Abnormal LFTs, EtOH abuse, chronic back pain, COPD, hypertension, SVT. Patient was brought to [facility] on 12/13 by friend for confusion x 2 weeks weakness and flu like symptoms. Patient was admitted to [facility] from 12/13/17 to 12/18/17 treated for metabolic encephalopathy related to UTI and then DC'd to [facility]. Patient was seen in the emergency department related to altered mentation and anemia . The patient at that time was had hemoglobin of 9.3 and her rectal examination was negative for blood. She was deemed safe for discharge with follow-up as an outpatient. Patient again presented to the ER 12/25/17 for increased altered mentation since falling at her [facility] at approximately 8 :15 AM 12/25. The patient has a baseline history of altered mentation that is thought to be related to her history of alcohol abuse and Wernicke's encephalopathy. - CT head negative - CXR reviewed the lungs are clear - UA does not indicate UTI, no culture indicated - Patient has ETOH abuse - [facility] protocol - Cont. folic acid and thiamine - Ammonia level 15 - TSH 3.710 - RPR nonreactive - EtOH use and review of prior records patient had been drinking 1.5-2 bottles of wine a day and had been decreasing intake. Patient has recently been admitted to [facility] nursing [facility] possibility of EtOH withdrawal causing altered mental status. - PT evaluated - Appreciate Psych evaluation. They did not feel that the patient met criteria for involuntary psychiatric admission. It was felt that the pt may benefit from comprehensive inpatient/outpatient alcohol rehabilitation program. - Supportive care - DC order placed on 12/27/17- case management working on safe DC - CM has enlisted help from Adult Protective Services. No progress has been made to obtain an accepting facility. - Psychiatry re-evaluated 01/08/18- patient does not meet inpatient psych admission criteria - 02/10/18 increase Seroquel to 100 mg PO QHS - Re-consulted psych for competency evaluation, and they declared pt not competent to make her own medical decisions. - [place] [facility] [employer] assisting with Medicaid disability application and discharge planning. Discussed with CM on 02/17/18 and pts medicaid application at this point has not been approved so awaiting approval to try to find placement. - Review of CM notes from 02/27/18 note that the pts mother will be meeting with Kishore form [employer] on Sunday @2:30 to complete application - Discussed with RN. - Pt has NO new clinical medical issues - continue to await safe discharge arrangements. no changes. (2) Anemia - On admission hgb 7.8, Hct 23.7, MCV 105.1 - 12/27/2017 hemoglobin improved 8.4 - 01/07/18 hemoglobin 10.3, Hct 31.2, MCV 101.9 - patient does have hx of ETOH abuse - B12 359 and folic acid 12.2 - Iron 48, total iron-binding capacity 183, percent saturation 26.2 - GI was consulted for possible EGD but unable to get consent so was recommended for outpt followup (3) Hypomagnesemia - magnesium 1.3 on admission - Pt was given replacement (4) Tachyarrhythmia - Pt with history of tachyarrhythmia - s/p EPS with ablation of AV re-entry node tachycardia Dr. Vazquez 2017 cont current bb dose (5) ETOH abuse - [facility] protocol - thiamine and folic acid - seizure precautions (6) COPD (chronic obstructive pulmonary disease) - Does not appear to be in acute exacerbation - duonebs if needed (7) HTN (hypertension) - Blood pressure was elevated during admission - Pt was initially started on amlodipine 5 mg p.o. daily but with tachyarrhythmia the Norvasc was stopped and Metoprolol added - BP has been running low will decrease metoprolol to 25 mg PO BID with hold parameters (03/07/18) BUN 28, creatinine 1.38, GFR 40 encourage PO hydration (03/09/18) recheck BMP appears stable continue to encourage PO fluid intake no new medical concerns, awaiting placement - Attending Attestation Patient examined. Assessment and plan formulated with Betsy Newman PA-C. I agree with the above.
[2018-03-20] MEDS: QUEtiapine 25 MG Tablet PO SCH (21:02)
[2018-03-20] MEDS: LORazepam 0.5 MG Tablet PO PRN (21:02)
[2018-03-21] MEDS: Senna/Docusate Sodium 8.6/50 MG Tablet PO SCH ×2 (08:49→20:37)
[2018-03-21] MEDS: Metoprolol Tartrate 50 MG Tablet PO SCH ×2 (08:49→20:37)
--- NOTE | 2018-03-21 16:04 | P.PNIM ---
Subjective Interval history: No new complaints. Physical Exam Vital signs: Vital Signs 03/21/18 08:00 Temperature 97.9 F Pulse Rate 82 Respiratory Rate 16 Blood Pressure 106/68 Pulse Oximetry 98 Narrative: GENERAL: NAD, pleasantly confused oriented to self only NECK: Supple, trachea midline. CARDIO: Regular RESP: Breath sounds equal bilaterally. ABD: Abdomen soft, non-tender, nondistended. EXT: No cyanosis, or edema. Results - Labs CBC & Chem 7: 03/07/18 08:25 03/09/18 08:00 Assessment and Plan - Assessment (1) Altered mental status Code(s): R41.82 - Altered mental status, unspecified Status: Acute Plan: (1) Altered mental status - The patient is a 52 year old female with past medical history which includes Abnormal LFTs, EtOH abuse, chronic back pain, COPD, hypertension, SVT. Patient was brought to [facility] on 12/13 by friend for confusion x 2 weeks weakness and flu like symptoms. Patient was admitted to [facility] from 12/13/17 to 12/18/17 treated for metabolic encephalopathy related to UTI and then DC'd to [facility]. Patient was seen in the emergency department related to altered mentation and anemia . The patient at that time was had hemoglobin of 9.3 and her rectal examination was negative for blood. She was deemed safe for discharge with follow-up as an outpatient. Patient again presented to the ER 12/25/17 for increased altered mentation since falling at her [facility] at approximately 8 :15 AM 12/25. The patient has a baseline history of altered mentation that is thought to be related to her history of alcohol abuse and Wernicke's encephalopathy. - CT head negative - CXR reviewed the lungs are clear - UA does not indicate UTI, no culture indicated - Patient has ETOH abuse - [facility] protocol - Cont. folic acid and thiamine - Ammonia level 15 - TSH 3.710 - RPR nonreactive - EtOH use and review of prior records patient had been drinking 1.5-2 bottles of wine a day and had been decreasing intake. Patient has recently been admitted to [facility] possibility of EtOH withdrawal causing altered mental status. - PT evaluated - Appreciate Psych evaluation. They did not feel that the patient met criteria for involuntary psychiatric admission. It was felt that the pt may benefit from comprehensive inpatient/outpatient alcohol rehabilitation program. - Supportive care - DC order placed on 12/27/17- case management working on safe DC - CM has enlisted help from Adult Protective Services. No progress has been made to obtain an accepting facility. - Psychiatry re-evaluated 01/08/18- patient does not meet inpatient psych admission criteria - 02/10/18 increase Seroquel to 100 mg PO QHS - Re-consulted psych for competency evaluation, and they declared pt not competent to make her own medical decisions. - [place] [facility] [employer] assisting with Medicaid disability application and discharge planning. Discussed with CM on 02/17/18 and pts medicaid application at this point has not been approved so awaiting approval to try to find placement. - Review of CM notes from 02/27/18 note that the pts mother will be meeting with Kishore form [employer] on Sunday @2:30 to complete application - Discussed with RN. - Pt has NO new clinical medical issues - continue to await safe discharge arrangements. no changes. (2) Anemia - On admission hgb 7.8, Hct 23.7, MCV 105.1 - 12/27/2017 hemoglobin improved 8.4 - 01/07/18 hemoglobin 10.3, Hct 31.2, MCV 101.9 - patient does have hx of ETOH abuse - B12 359 and folic acid 12.2 - Iron 48, total iron-binding capacity 183, percent saturation 26.2 - GI was consulted for possible EGD but unable to get consent so was recommended for outpt followup (3) Hypomagnesemia - magnesium 1.3 on admission - Pt was given replacement (4) Tachyarrhythmia - Pt with history of tachyarrhythmia - s/p EPS with ablation of AV re-entry node tachycardia Dr. Vazquez 2017 cont current bb dose (5) ETOH abuse - [facility] protocol - thiamine and folic acid - seizure precautions (6) COPD (chronic obstructive pulmonary disease) - Does not appear to be in acute exacerbation - duonebs if needed (7) HTN (hypertension) - Blood pressure was elevated during admission - Pt was initially started on amlodipine 5 mg p.o. daily but with tachyarrhythmia the Norvasc was stopped and Metoprolol added - BP has been running low will decrease metoprolol to 25 mg PO BID with hold parameters (03/07/18) BUN 28, creatinine 1.38, GFR 40 encourage PO hydration (03/09/18) recheck BMP appears stable continue to encourage PO fluid intake no new medical concerns, awaiting placement
[2018-03-21] MEDS: QUEtiapine 25 MG Tablet PO SCH (20:37)
[2018-03-22] MEDS: Metoprolol Tartrate 50 MG Tablet PO SCH ×2 (08:56→21:19)
--- NOTE | 2018-03-22 11:56 | P.PNIM ---
Subjective Interval history: in no acute distress. looks comfortable. d/w the RN and no acute issues over night. Physical Exam Vital signs: Vital Signs 03/21/18 19:53 03/21/18 20:00 03/22/18 08:00 Temperature 97.5 F L 97.5 F L 97.7 F Pulse Rate 77 77 71 Respiratory Rate 16 16 20 Blood Pressure 105/72 105/72 95/60 L Pulse Oximetry 98 98 98 Intake & Output 03/21/18 03/22/18 03/22/18 18:59 06:59 18:59 Intake Total 740 / 740 240 / 240 Balance 740 / 740 240 / 240 Intake: Oral 740 / 740 240 / 240 Other: # Voids 3 2 Date of Last Bowel Movement 03/20/18 # Bowel Movements 0 0 - Constitutional no acute distress - Routine Respiratory Exam Present: CTA bilaterally - Routine Cardiovascular Exam Present: RRR - Routine Abdominal Exam Present: soft - Routine Extremities Exam Comments: no pedal edema. - Routine Neurological Exam Present: alert Results - Labs CBC & Chem 7: 03/07/18 08:25 03/09/18 08:00 Assessment and Plan - Assessment (1) Altered mental status Code(s): R41.82 - Altered mental status, unspecified Status: Acute Plan: (1) Altered mental status - The patient is a 52 year old female with past medical history which includes Abnormal LFTs, EtOH abuse, chronic back pain, COPD, hypertension, SVT. Patient was brought to [facility] on 12/13 by friend for confusion x 2 weeks weakness and flu like symptoms. Patient was admitted to [facility] from 12/13/17 to 12/18/17 treated for metabolic encephalopathy related to UTI and then DC'd to [facility]. Patient was seen in the emergency department related to altered mentation and anemia . The patient at that time was had hemoglobin of 9.3 and her rectal examination was negative for blood. She was deemed safe for discharge with follow-up as an outpatient. Patient again presented to the ER 12/25/17 for increased altered mentation since falling at her skilled nursing at approximately 8 :15 AM 12/25. The patient has a baseline history of altered mentation that is thought to be related to her history of alcohol abuse and Wernicke's encephalopathy. - CT head negative - CXR reviewed the lungs are clear - UA does not indicate UTI, no culture indicated - Patient has ETOH abuse - [facility] protocol - Cont. folic acid and thiamine - Ammonia level 15 - TSH 3.710 - RPR nonreactive - EtOH use and review of prior records patient had been drinking 1.5-2 bottles of wine a day and had been decreasing intake. Patient has recently been admitted to [facility] possibility of EtOH withdrawal causing altered mental status. - PT evaluated - Appreciate Psych evaluation. They did not feel that the patient met criteria for involuntary psychiatric admission. It was felt that the pt may benefit from comprehensive inpatient/outpatient alcohol rehabilitation program. - Supportive care - DC order placed on 12/27/17- case management working on safe DC - CM has enlisted help from Adult Protective Services. No progress has been made to obtain an accepting facility. - Psychiatry re-evaluated 01/08/18- patient does not meet inpatient psych admission criteria - 02/10/18 increase Seroquel to 100 mg PO QHS - Re-consulted psych for competency evaluation, and they declared pt not competent to make her own medical decisions. - [place] [employer] assisting with Medicaid disability application and discharge planning. (2) Anemia - On admission hgb 7.8, Hct 23.7, MCV 105.1 - 12/27/2017 hemoglobin improved 8.4 - 01/07/18 hemoglobin 10.3, Hct 31.2, MCV 101.9 - patient does have hx of ETOH abuse - B12 359 and folic acid 12.2 - Iron 48, total iron-binding capacity 183, percent saturation 26.2 - GI was consulted for possible EGD but unable to get consent so was recommended for outpt followup (3) Hypomagnesemia - magnesium 1.3 on admission - Pt was given replacement (4) Tachyarrhythmia - Pt with history of tachyarrhythmia - s/p EPS with ablation of AV re-entry node tachycardia Dr. Vazquez 2016 cont current bb dose (5) ETOH abuse - [facility] protocol - thiamine and folic acid - seizure precautions (6) COPD (chronic obstructive pulmonary disease) - Does not appear to be in acute exacerbation - duonebs if needed (7) HTN (hypertension) - Blood pressure was elevated during admission - Pt was initially started on amlodipine 5 mg p.o. daily but with tachyarrhythmia the Norvasc was stopped and Metoprolol added - continue with BB with holding parameters. - Plan Discharge Planning: awaiting placement.
[2018-03-22] MEDS: Senna/Docusate Sodium 8.6/50 MG Tablet PO SCH ×2 (15:09→21:19)
[2018-03-22] MEDS: QUEtiapine 25 MG Tablet PO SCH (21:19)
[2018-03-23] MEDS: Senna/Docusate Sodium 8.6/50 MG Tablet PO SCH ×3 (09:16→20:40)
[2018-03-23] MEDS: Metoprolol Tartrate 50 MG Tablet PO SCH ×3 (09:16→20:40)
--- NOTE | 2018-03-23 11:02 | P.PNIM ---
Subjective Interval history: in no acute distress. no new complaints. Physical Exam Vital signs: Vital Signs 03/22/18 20:00 03/23/18 08:00 Temperature 97.8 F 97.7 F Pulse Rate 75 81 Respiratory Rate 20 18 Blood Pressure 97/60 L 113/78 Pulse Oximetry 98 97 Intake & Output 03/22/18 03/23/18 03/23/18 18:59 06:59 18:59 Intake Total 480 / 480 Balance 480 / 480 Weight 56.2 kg Intake: Oral 480 / 480 Other: # Voids 2 Date of Last Bowel Movement 03/21/18 # Bowel Movements 0 - Constitutional no acute distress - Routine Respiratory Exam Present: CTA bilaterally - Routine Cardiovascular Exam Present: RRR - Routine Abdominal Exam Present: soft Results - Labs CBC & Chem 7: 03/07/18 08:25 03/09/18 08:00 Assessment and Plan - Assessment (1) Altered mental status Code(s): R41.82 - Altered mental status, unspecified Status: Acute Plan: - Plan (1) Altered mental status - The patient is a 52 year old female with past medical history which includes Abnormal LFTs, EtOH abuse, chronic back pain, COPD, hypertension, SVT. Patient was brought to [facility] on 12/13 by friend for confusion x 2 weeks weakness and flu like symptoms. Patient was admitted to [facility] from 12/13/17 to 12/18/17 treated for metabolic encephalopathy related to UTI and then DC'd to [facility]. Patient was seen in the emergency department related to altered mentation and anemia . The patient at that time was had hemoglobin of 9.3 and her rectal examination was negative for blood. She was deemed safe for discharge with follow-up as an outpatient. Patient again presented to the ER 12/25/17 for increased altered mentation since [facility] at approximately 8 :15 AM 12/25. The patient has a baseline history of altered mentation that is thought to be related to her history of alcohol abuse and Wernicke's encephalopathy. - CT head negative - CXR reviewed the lungs are clear - UA does not indicate UTI, no culture indicated - Patient has ETOH abuse - [facility] protocol - Cont. folic acid and thiamine - Ammonia level 15 - TSH 3.710 - RPR nonreactive - EtOH use and review of prior records patient had been drinking 1.5-2 bottles of wine a day and had been decreasing intake. Patient has recently been admitted to [facility] possibility of EtOH withdrawal causing altered mental status. - PT evaluated - Appreciate Psych evaluation. They did not feel that the patient met criteria for involuntary psychiatric admission. It was felt that the pt may benefit from comprehensive inpatient/outpatient alcohol rehabilitation program. - Supportive care - DC order placed on 12/27/17- case management working on safe DC - CM has enlisted help from Adult Protective Services. No progress has been made to obtain an accepting facility. - Psychiatry re-evaluated 01/08/18- patient does not meet inpatient psych admission criteria - 02/10/18 increase Seroquel to 100 mg PO QHS - Re-consulted psych for competency evaluation, and they declared pt not competent to make her own medical decisions. - [place] [employer] assisting with Medicaid disability application and discharge planning. (2) Anemia - On admission hgb 7.8, Hct 23.7, MCV 105.1 - 12/27/2017 hemoglobin improved 8.4 - 01/07/18 hemoglobin 10.3, Hct 31.2, MCV 101.9 - patient does have hx of ETOH abuse - B12 359 and folic acid 12.2 - Iron 48, total iron-binding capacity 183, percent saturation 26.2 - GI was consulted for possible EGD but unable to get consent so was recommended for outpt followup (3) Hypomagnesemia - magnesium 1.3 on admission - Pt was given replacement (4) Tachyarrhythmia - Pt with history of tachyarrhythmia - s/p EPS with ablation of AV re-entry node tachycardia Dr. Vazquez 2017 cont current bb dose (5) ETOH abuse - [facility] protocol - thiamine and folic acid - seizure precautions (6) COPD (chronic obstructive pulmonary disease) - Does not appear to be in acute exacerbation - duonebs if needed (7) HTN (hypertension) - Blood pressure was elevated during admission - Pt was initially started on amlodipine 5 mg p.o. daily but with tachyarrhythmia the Norvasc was stopped and Metoprolol added - continue with BB with holding parameters. Discharge Planning: awaiting placement.
[2018-03-23] MEDS: QUEtiapine 25 MG Tablet PO SCH (20:40)
[2018-03-24] MEDS: Metoprolol Tartrate 50 MG Tablet PO SCH ×2 (08:57→20:15)
[2018-03-24] MEDS: Senna/Docusate Sodium 8.6/50 MG Tablet PO SCH ×2 (08:57→20:15)
--- NOTE | 2018-03-24 10:35 | P.PNIM ---
Subjective Interval history: in no distress. no new complaints. d/w the RN and no acute issues over night. Physical Exam Vital signs: Vital Signs 03/23/18 20:00 03/24/18 08:00 Temperature 98 F 97.8 F Pulse Rate 83 76 Respiratory Rate 19 16 Blood Pressure 100/67 93/64 L Pulse Oximetry 97 Intake & Output 03/23/18 03/24/18 03/24/18 18:59 06:59 18:59 Intake Total 720 / 720 240 / 240 Balance 720 / 720 240 / 240 Weight 57 kg Intake: Oral 720 / 720 240 / 240 Other: # Voids 4 2 Date of Last Bowel Movement 03/21/18 03/23/18 - Constitutional no acute distress - Routine Respiratory Exam Present: CTA bilaterally - Routine Cardiovascular Exam Present: RRR - Routine Abdominal Exam Present: soft Results - Labs CBC & Chem 7: 03/07/18 08:25 03/09/18 08:00 Assessment and Plan - Assessment (1) Altered mental status Code(s): R41.82 - Altered mental status, unspecified Status: Acute Plan: - Plan (1) Altered mental status - The patient is a 52 year old female with past medical history which includes Abnormal LFTs, EtOH abuse, chronic back pain, COPD, hypertension, SVT. Patient was brought to [facility] on 12/13 by friend for confusion x 2 weeks weakness and flu like symptoms. Patient was admitted to [facility] from 12/13/17 to 12/18/17 treated for metabolic encephalopathy related to UTI and then DC'd to [facility]. Patient was seen in the emergency department related to altered mentation and anemia . The patient at that time was had hemoglobin of 9.3 and her rectal examination was negative for blood. She was deemed safe for discharge with follow-up as an outpatient. Patient again presented to the ER 12/25/17 for increased altered mentation since falling at her retirement at approximately 8 :15 AM 12/25. The patient has a baseline history of altered mentation that is thought to be related to her history of alcohol abuse and Wernicke's encephalopathy. - CT head negative - CXR reviewed the lungs are clear - UA does not indicate UTI, no culture indicated - Patient has ETOH abuse - [facility] protocol - Cont. folic acid and thiamine - Ammonia level 15 - TSH 3.710 - RPR nonreactive - EtOH use and review of prior records patient had been drinking 1.5-2 bottles of wine a day and had been decreasing intake. Patient has recently been admitted to [facility] possibility of EtOH withdrawal causing altered mental status. - PT evaluated - Appreciate Psych evaluation. They did not feel that the patient met criteria for involuntary psychiatric admission. It was felt that the pt may benefit from comprehensive inpatient/outpatient alcohol rehabilitation program. - Supportive care - DC order placed on 12/27/17- case management working on safe DC - CM has enlisted help from Adult Protective Services. No progress has been made to obtain an accepting facility. - Psychiatry re-evaluated 01/08/18- patient does not meet inpatient psych admission criteria - 02/10/18 increase Seroquel to 100 mg PO QHS - Re-consulted psych for competency evaluation, and they declared pt not competent to make her own medical decisions. - [place] [employer] assisting with Medicaid disability application and discharge planning. (2) Anemia - On admission hgb 7.8, Hct 23.7, MCV 105.1 - 12/27/2017 hemoglobin improved 8.4 - 01/07/18 hemoglobin 10.3, Hct 31.2, MCV 101.9 - patient does have hx of ETOH abuse - B12 359 and folic acid 12.2 - Iron 48, total iron-binding capacity 183, percent saturation 26.2 - GI was consulted for possible EGD but unable to get consent so was recommended for outpt followup (3) Hypomagnesemia - magnesium 1.3 on admission - Pt was given replacement (4) Tachyarrhythmia - Pt with history of tachyarrhythmia - s/p EPS with ablation of AV re-entry node tachycardia Dr. Vazquez 2017 cont current bb dose (5) ETOH abuse - [facility] protocol - thiamine and folic acid - seizure precautions (6) COPD (chronic obstructive pulmonary disease) - Does not appear to be in acute exacerbation - duonebs if needed (7) HTN (hypertension) - Blood pressure was elevated during admission - Pt was initially started on amlodipine 5 mg p.o. daily but with tachyarrhythmia the Norvasc was stopped and Metoprolol added - continue with BB with holding parameters. Discharge Planning: awaiting placement.
[2018-03-24] MEDS: QUEtiapine 25 MG Tablet PO SCH (20:15)
[2018-03-25] MEDS: Senna/Docusate Sodium 8.6/50 MG Tablet PO SCH ×2 (09:34→20:53)
[2018-03-25] MEDS: Metoprolol Tartrate 50 MG Tablet PO SCH ×2 (09:35→20:53)
--- NOTE | 2018-03-25 11:14 | P.PNIM ---
Subjective Interval history: in no distress. clinically the same. no new complaints. Physical Exam Vital signs: Vital Signs 03/24/18 20:00 03/25/18 08:00 Temperature 98.1 F 97.6 F Pulse Rate 84 104 H Respiratory Rate 17 20 Blood Pressure 114/70 104/70 Pulse Oximetry 99 96 Intake & Output 03/24/18 03/25/18 03/25/18 18:59 06:59 18:59 Intake Total 240 / 240 Balance 240 / 240 Weight 56.6 kg Intake: Oral 240 / 240 Other: # Voids 2 Date of Last Bowel Movement 03/23/18 # Bowel Movements 1 - Constitutional no acute distress - Routine Respiratory Exam Present: CTA bilaterally - Routine Cardiovascular Exam Present: RRR - Routine Abdominal Exam Present: soft Results - Labs CBC & Chem 7: 03/07/18 08:25 03/09/18 08:00 Assessment and Plan - Assessment (1) Altered mental status Code(s): R41.82 - Altered mental status, unspecified Status: Acute Plan: - Plan (1) Altered mental status - The patient is a 52 year old female with past medical history which includes Abnormal LFTs, EtOH abuse, chronic back pain, COPD, hypertension, SVT. Patient was brought to [facility] on 12/13 by friend for confusion x 2 weeks weakness and flu like symptoms. Patient was admitted to [facility] from 12/13/17 to 12/18/17 treated for metabolic encephalopathy related to UTI and then DC'd to [facility]. Patient was seen in the emergency department related to altered mentation and anemia . The patient at that time was had hemoglobin of 9.3 and her rectal examination was negative for blood. She was deemed safe for discharge with follow-up as an outpatient. Patient again presented to the ER 12/25/17 for increased altered mentation since falling at her [facility] at approximately 8 :15 AM 12/25. The patient has a baseline history of altered mentation that is thought to be related to her history of alcohol abuse and Wernicke's encephalopathy. - CT head negative - CXR reviewed the lungs are clear - UA does not indicate UTI, no culture indicated - Patient has ETOH abuse - [facility] protocol - Cont. folic acid and thiamine - Ammonia level 15 - TSH 3.710 - RPR nonreactive - EtOH use and review of prior records patient had been drinking 1.5-2 bottles of wine a day and had been decreasing intake. Patient has recently been admitted to [facility] possibility of EtOH withdrawal causing altered mental status. - PT evaluated - Appreciate Psych evaluation. They did not feel that the patient met criteria for involuntary psychiatric admission. It was felt that the pt may benefit from comprehensive inpatient/outpatient alcohol rehabilitation program. - Supportive care - DC order placed on 12/27/17- case management working on safe DC - CM has enlisted help from Adult Protective Services. No progress has been made to obtain an accepting facility. - Psychiatry re-evaluated 01/08/18- patient does not meet inpatient psych admission criteria - 02/10/18 increase Seroquel to 100 mg PO QHS - Re-consulted psych for competency evaluation, and they declared pt not competent to make her own medical decisions. - [place] [employer] assisting with Medicaid disability application and discharge planning. (2) Anemia - On admission hgb 7.8, Hct 23.7, MCV 105.1 - 12/27/2017 hemoglobin improved 8.4 - 01/07/18 hemoglobin 10.3, Hct 31.2, MCV 101.9 - patient does have hx of ETOH abuse - B12 359 and folic acid 12.2 - Iron 48, total iron-binding capacity 183, percent saturation 26.2 - GI was consulted for possible EGD but unable to get consent so was recommended for outpt followup (3) Hypomagnesemia - magnesium 1.3 on admission - Pt was given replacement (4) Tachyarrhythmia - Pt with history of tachyarrhythmia - s/p EPS with ablation of AV re-entry node tachycardia Dr. Vazquez 2017 cont current bb dose (5) ETOH abuse - [facility] protocol - thiamine and folic acid - seizure precautions (6) COPD (chronic obstructive pulmonary disease) - Does not appear to be in acute exacerbation - duonebs if needed (7) HTN (hypertension) - Blood pressure was elevated during admission - Pt was initially started on amlodipine 5 mg p.o. daily but with tachyarrhythmia the Norvasc was stopped and Metoprolol added - continue with BB with holding parameters. Discharge Planning: awaiting placement.
[2018-03-25] MEDS: QUEtiapine 25 MG Tablet PO SCH (20:53)
[2018-03-26] MEDS: Metoprolol Tartrate 50 MG Tablet PO SCH ×4 (08:57→20:18)
[2018-03-26] MEDS: Senna/Docusate Sodium 8.6/50 MG Tablet PO SCH ×2 (08:58→20:19)
--- NOTE | 2018-03-26 11:45 | P.PNIM ---
Subjective Interval history: in no distress. no new complaints. Physical Exam Vital signs: Vital Signs 03/25/18 20:00 03/26/18 08:00 Temperature 97.4 F L 97.6 F Pulse Rate 77 76 Respiratory Rate 18 18 Blood Pressure 97/73 L 93/63 L Pulse Oximetry 100 95 Intake & Output 03/25/18 03/26/18 03/26/18 18:59 06:59 18:59 Intake Total 240 / 240 Balance 240 / 240 Weight 57.6 kg Intake: Oral 240 / 240 Other: # Voids 2 Date of Last Bowel Movement 03/23/18 # Bowel Movements 0 - Constitutional no acute distress - Routine Respiratory Exam Present: CTA bilaterally - Routine Cardiovascular Exam Present: RRR - Routine Abdominal Exam Present: soft Results - Labs CBC & Chem 7: 03/07/18 08:25 03/09/18 08:00 Assessment and Plan - Assessment (1) Altered mental status Code(s): R41.82 - Altered mental status, unspecified Status: Acute Plan: - Plan (1) Altered mental status - The patient is a 52 year old female with past medical history which includes Abnormal LFTs, EtOH abuse, chronic back pain, COPD, hypertension, SVT. Patient was brought to [facility] on 12/13 by friend for confusion x 2 weeks weakness and flu like symptoms. Patient was admitted to [facility] from 12/13/17 to 12/18/17 treated for metabolic encephalopathy related to UTI and then DC'd to [facility]. Patient was seen in the emergency department related to altered mentation and anemia . The patient at that time was had hemoglobin of 9.3 and her rectal examination was negative for blood. She was deemed safe for discharge with follow-up as an outpatient. Patient again presented to the ER 12/25/17 for increased altered mentation since falling at her residential at approximately 8 :15 AM 12/25. The patient has a baseline history of altered mentation that is thought to be related to her history of alcohol abuse and Wernicke's encephalopathy. - CT head negative - CXR reviewed the lungs are clear - UA does not indicate UTI, no culture indicated - Patient has ETOH abuse - [facility] protocol - Cont. folic acid and thiamine - Ammonia level 15 - TSH 3.710 - RPR nonreactive - EtOH use and review of prior records patient had been drinking 1.5-2 bottles of wine a day and had been decreasing intake. Patient has recently been admitted to [facility] nursing [facility] possibility of EtOH withdrawal causing altered mental status. - PT evaluated - Appreciate Psych evaluation. They did not feel that the patient met criteria for involuntary psychiatric admission. It was felt that the pt may benefit from comprehensive inpatient/outpatient alcohol rehabilitation program. - Supportive care - DC order placed on 12/27/17- case management working on safe DC - CM has enlisted help from Adult Protective Services. No progress has been made to obtain an accepting facility. - Psychiatry re-evaluated 01/08/18- patient does not meet inpatient psych admission criteria - 02/10/18 increase Seroquel to 100 mg PO QHS - Re-consulted psych for competency evaluation, and they declared pt not competent to make her own medical decisions. - [place] [employer] assisting with Medicaid disability application and discharge planning. (2) Anemia - On admission hgb 7.8, Hct 23.7, MCV 105.1 - 12/27/2017 hemoglobin improved 8.4 - 01/07/18 hemoglobin 10.3, Hct 31.2, MCV 101.9 - patient does have hx of ETOH abuse - B12 359 and folic acid 12.2 - Iron 48, total iron-binding capacity 183, percent saturation 26.2 - GI was consulted for possible EGD but unable to get consent so was recommended for outpt followup (3) Hypomagnesemia - magnesium 1.3 on admission - Pt was given replacement (4) Tachyarrhythmia - Pt with history of tachyarrhythmia - s/p EPS with ablation of AV re-entry node tachycardia Dr. Vazquez 2017 cont current bb dose (5) ETOH abuse - [facility] protocol - thiamine and folic acid - seizure precautions (6) COPD (chronic obstructive pulmonary disease) - Does not appear to be in acute exacerbation - duonebs if needed (7) HTN (hypertension) - Blood pressure was elevated during admission - Pt was initially started on amlodipine 5 mg p.o. daily but with tachyarrhythmia the Norvasc was stopped and Metoprolol added - continue with BB with holding parameters. Discharge Planning: awaiting placement.
[2018-03-26] MEDS: QUEtiapine 25 MG Tablet PO SCH (20:18)
[2018-03-27] MEDS: LORazepam 0.5 MG Tablet PO PRN (01:39)
[2018-03-27] MEDS: Metoprolol Tartrate 50 MG Tablet PO SCH ×2 (08:57→20:32)
[2018-03-27] MEDS: Senna/Docusate Sodium 8.6/50 MG Tablet PO SCH ×2 (08:58→20:32)
--- NOTE | 2018-03-27 11:18 | P.PNIM ---
Subjective Interval history: in no distress. no new complaints. Physical Exam Vital signs: Vital Signs 03/26/18 20:00 03/27/18 08:00 Temperature 97.7 F 98.0 F Pulse Rate 107 H 87 Respiratory Rate 18 18 Blood Pressure 112/78 83/60 L Pulse Oximetry 98 96 Intake & Output 03/26/18 03/27/18 03/27/18 18:59 06:59 18:59 Weight 57.3 kg - Constitutional no acute distress - Routine Respiratory Exam Present: CTA bilaterally - Routine Cardiovascular Exam Present: RRR - Routine Abdominal Exam Present: soft Results - Labs CBC & Chem 7: 03/07/18 08:25 03/09/18 08:00 Assessment and Plan - Assessment (1) Altered mental status Code(s): R41.82 - Altered mental status, unspecified Status: Acute Plan: - Plan (1) Altered mental status - The patient is a 52 year old female with past medical history which includes Abnormal LFTs, EtOH abuse, chronic back pain, COPD, hypertension, SVT. Patient was brought to [facility] on 12/13 by friend for confusion x 2 weeks weakness and flu like symptoms. Patient was admitted to [facility] from 12/13/17 to 12/18/17 treated for metabolic encephalopathy related to UTI and then DC'd to [facility]. Patient was seen in the emergency department related to altered mentation and anemia . The patient at that time was had hemoglobin of 9.3 and her rectal examination was negative for blood. She was deemed safe for discharge with follow-up as an outpatient. Patient again presented to the ER 12/25/17 for increased altered mentation since falling at her longterm at approximately 8 :15 AM 12/25. The patient has a baseline history of altered mentation that is thought to be related to her history of alcohol abuse and Wernicke's encephalopathy. - CT head negative - CXR reviewed the lungs are clear - UA does not indicate UTI, no culture indicated - Patient has ETOH abuse - [facility] protocol - Cont. folic acid and thiamine - Ammonia level 15 - TSH 3.710 - RPR nonreactive - EtOH use and review of prior records patient had been drinking 1.5-2 bottles of wine a day and had been decreasing intake. Patient has recently been admitted to [facility] possibility of EtOH withdrawal causing altered mental status. - PT evaluated - Appreciate Psych evaluation. They did not feel that the patient met criteria for involuntary psychiatric admission. It was felt that the pt may benefit from comprehensive inpatient/outpatient alcohol rehabilitation program. - Supportive care - DC order placed on 12/27/17- case management working on safe DC - CM has enlisted help from Adult Protective Services. No progress has been made to obtain an accepting facility. - Psychiatry re-evaluated 01/08/18- patient does not meet inpatient psych admission criteria - 02/10/18 increase Seroquel to 100 mg PO QHS - Re-consulted psych for competency evaluation, and they declared pt not competent to make her own medical decisions. - [place] [employer] assisting with Medicaid disability application and discharge planning. (2) Anemia - On admission hgb 7.8, Hct 23.7, MCV 105.1 - 12/27/2017 hemoglobin improved 8.4 - 01/07/18 hemoglobin 10.3, Hct 31.2, MCV 101.9 - patient does have hx of ETOH abuse - B12 359 and folic acid 12.2 - Iron 48, total iron-binding capacity 183, percent saturation 26.2 - GI was consulted for possible EGD but unable to get consent so was recommended for outpt followup (3) Hypomagnesemia - magnesium 1.3 on admission - Pt was given replacement (4) Tachyarrhythmia - Pt with history of tachyarrhythmia - s/p EPS with ablation of AV re-entry node tachycardia Dr. Vazquez 2017 cont current bb dose (5) ETOH abuse - [facility] protocol - thiamine and folic acid - seizure precautions (6) COPD (chronic obstructive pulmonary disease) - Does not appear to be in acute exacerbation - duonebs if needed (7) HTN (hypertension) - Blood pressure was elevated during admission - Pt was initially started on amlodipine 5 mg p.o. daily but with tachyarrhythmia the Norvasc was stopped and Metoprolol added - continue with BB with holding parameters. Discharge Planning: awaiting placement.
[2018-03-27] MEDS: QUEtiapine 25 MG Tablet PO SCH (20:32)
[2018-03-28] MEDS: Metoprolol Tartrate 50 MG Tablet PO SCH ×2 (08:25→20:16)
[2018-03-28] MEDS: Senna/Docusate Sodium 8.6/50 MG Tablet PO SCH ×2 (08:25→20:16)
--- NOTE | 2018-03-28 11:16 | P.PNIM ---
Subjective Interval history: in no distress. no new complaints. Physical Exam Vital signs: Vital Signs 03/27/18 20:00 03/28/18 08:00 Temperature 98.2 F 97.3 F L Pulse Rate 65 97 H Respiratory Rate 18 17 Blood Pressure 100/65 104/59 L Pulse Oximetry 97 98 Intake & Output 03/27/18 03/28/18 03/28/18 18:59 06:59 18:59 Intake Total 720 / 720 Balance 720 / 720 Intake: Oral 720 / 720 Other: # Voids 5 Date of Last Bowel Movement 03/25/18 03/26/18 - Constitutional no acute distress - Routine Respiratory Exam Present: CTA bilaterally - Routine Cardiovascular Exam Present: RRR - Routine Abdominal Exam Present: soft Results - Labs CBC & Chem 7: 03/07/18 08:25 03/09/18 08:00 Assessment and Plan - Assessment (1) Altered mental status Code(s): R41.82 - Altered mental status, unspecified Status: Acute Plan: - Plan (1) Altered mental status - The patient is a 52 year old female with past medical history which includes Abnormal LFTs, EtOH abuse, chronic back pain, COPD, hypertension, SVT. Patient was brought to [facility] on 12/13 by friend for confusion x 2 weeks weakness and flu like symptoms. Patient was admitted to [facility] from 12/13/17 to 12/18/17 treated for metabolic encephalopathy related to UTI and then DC'd to [facility]. Patient was seen in the emergency department related to altered mentation and anemia . The patient at that time was had hemoglobin of 9.3 and her rectal examination was negative for blood. She was deemed safe for discharge with follow-up as an outpatient. Patient again presented to the ER 12/25/17 for increased altered mentation since falling at her long term at approximately 8 :15 AM 12/25. The patient has a baseline history of altered mentation that is thought to be related to her history of alcohol abuse and Wernicke's encephalopathy. - CT head negative - CXR reviewed the lungs are clear - UA does not indicate UTI, no culture indicated - Patient has ETOH abuse - [facility] protocol - Cont. folic acid and thiamine - Ammonia level 15 - TSH 3.710 - RPR nonreactive - EtOH use and review of prior records patient had been drinking 1.5-2 bottles of wine a day and had been decreasing intake. Patient has recently been admitted to [facility] nursing [facility] possibility of EtOH withdrawal causing altered mental status. - PT evaluated - Appreciate Psych evaluation. They did not feel that the patient met criteria for involuntary psychiatric admission. It was felt that the pt may benefit from comprehensive inpatient/outpatient alcohol rehabilitation program. - Supportive care - DC order placed on 12/27/17- case management working on safe DC - CM has enlisted help from Adult Protective Services. No progress has been made to obtain an accepting facility. - Psychiatry re-evaluated 01/08/18- patient does not meet inpatient psych admission criteria - 02/10/18 increase Seroquel to 100 mg PO QHS - Re-consulted psych for competency evaluation, and they declared pt not competent to make her own medical decisions. - [place] [employer] assisting with Medicaid disability application and discharge planning. (2) Anemia - On admission hgb 7.8, Hct 23.7, MCV 105.1 - 12/27/2017 hemoglobin improved 8.4 - 01/07/18 hemoglobin 10.3, Hct 31.2, MCV 101.9 - patient does have hx of ETOH abuse - B12 359 and folic acid 12.2 - Iron 48, total iron-binding capacity 183, percent saturation 26.2 - GI was consulted for possible EGD but unable to get consent so was recommended for outpt followup (3) Hypomagnesemia - magnesium 1.3 on admission - Pt was given replacement (4) Tachyarrhythmia - Pt with history of tachyarrhythmia - s/p EPS with ablation of AV re-entry node tachycardia Dr. Vazquez 2017 cont current bb dose (5) ETOH abuse - [facility] protocol - thiamine and folic acid - seizure precautions (6) COPD (chronic obstructive pulmonary disease) - Does not appear to be in acute exacerbation - duonebs if needed (7) HTN (hypertension) - Blood pressure was elevated during admission - Pt was initially started on amlodipine 5 mg p.o. daily but with tachyarrhythmia the Norvasc was stopped and Metoprolol added - continue with BB with holding parameters. Discharge Planning: awaiting placement.
[2018-03-28] MEDS: QUEtiapine 25 MG Tablet PO SCH (20:17)
[2018-03-29] MEDS: Senna/Docusate Sodium 8.6/50 MG Tablet PO SCH ×2 (10:25→20:40)
[2018-03-29] MEDS: Metoprolol Tartrate 50 MG Tablet PO SCH ×2 (10:26→20:40)
--- NOTE | 2018-03-29 12:08 | P.PNIM ---
Subjective Interval history: in no distress. clinically no change with no new complaints. Physical Exam Vital signs: Vital Signs 03/28/18 20:00 03/29/18 08:00 Temperature 98.5 F 97.8 F Pulse Rate 112 H 73 Respiratory Rate 18 18 Blood Pressure 117/78 115/69 Pulse Oximetry 96 98 Intake & Output 03/28/18 03/29/18 03/29/18 18:59 06:59 18:59 Intake Total 480 / 480 Balance 480 / 480 Weight 57.3 kg Intake: Oral 480 / 480 Other: # Voids 2 Date of Last Bowel Movement 03/26/18 03/26/18 03/26/18 - Constitutional no acute distress - Routine Respiratory Exam Present: CTA bilaterally - Routine Cardiovascular Exam Present: RRR - Routine Abdominal Exam Present: soft Results - Labs CBC & Chem 7: 03/07/18 08:25 03/09/18 08:00 Assessment and Plan - Assessment (1) Altered mental status Code(s): R41.82 - Altered mental status, unspecified Status: Acute Plan: - Plan (1) Altered mental status - The patient is a 52 year old female with past medical history which includes Abnormal LFTs, EtOH abuse, chronic back pain, COPD, hypertension, SVT. Patient was brought to [facility] on 12/13 by friend for confusion x 2 weeks weakness and flu like symptoms. Patient was admitted to [facility] from 12/13/17 to 12/18/17 treated for metabolic encephalopathy related to UTI and then DC'd to [facility]. Patient was seen in the emergency department related to altered mentation and anemia . The patient at that time was had hemoglobin of 9.3 and her rectal examination was negative for blood. She was deemed safe for discharge with follow-up as an outpatient. Patient again presented to the ER 12/25/17 for increased altered mentation since falling at her [facility] at approximately 8 :15 AM 12/25. The patient has a baseline history of altered mentation that is thought to be related to her history of alcohol abuse and Wernicke's encephalopathy. - CT head negative - CXR reviewed the lungs are clear - UA does not indicate UTI, no culture indicated - Patient has ETOH abuse - [facility] protocol - Cont. folic acid and thiamine - Ammonia level 15 - TSH 3.710 - RPR nonreactive - EtOH use and review of prior records patient had been drinking 1.5-2 bottles of wine a day and had been decreasing intake. Patient has recently been admitted to [facility] nursing [facility] possibility of EtOH withdrawal causing altered mental status. - PT evaluated - Appreciate Psych evaluation. They did not feel that the patient met criteria for involuntary psychiatric admission. It was felt that the pt may benefit from comprehensive inpatient/outpatient alcohol rehabilitation program. - Supportive care - DC order placed on 12/27/17- case management working on safe DC - CM has enlisted help from Adult Protective Services. No progress has been made to obtain an accepting facility. - Psychiatry re-evaluated 01/08/18- patient does not meet inpatient psych admission criteria - 02/10/18 increase Seroquel to 100 mg PO QHS - Re-consulted psych for competency evaluation, and they declared pt not competent to make her own medical decisions. - [place] [employer] assisting with Medicaid disability application and discharge planning. (2) Anemia - On admission hgb 7.8, Hct 23.7, MCV 105.1 - patient does have hx of ETOH abuse - B12 359 and folic acid 12.2 - Iron 48, total iron-binding capacity 183, percent saturation 26.2 - GI was consulted for possible EGD but unable to get consent so was recommended for outpt followup (3) Hypomagnesemia - magnesium 1.3 on admission - Pt was given replacement (4) Tachyarrhythmia - Pt with history of tachyarrhythmia - s/p EPS with ablation of AV re-entry node tachycardia Dr. Vazquez 2017 cont current bb dose (5) ETOH abuse - [facility] protocol - thiamine and folic acid - seizure precautions (6) COPD (chronic obstructive pulmonary disease) - Does not appear to be in acute exacerbation - duonebs if needed (7) HTN (hypertension) - Blood pressure was elevated during admission - Pt was initially started on amlodipine 5 mg p.o. daily but with tachyarrhythmia the Norvasc was stopped and Metoprolol added - continue with BB with holding parameters. Discharge Planning: awaiting placement.
[2018-03-29] MEDS: QUEtiapine 25 MG Tablet PO SCH (20:40)
[2018-03-30] MEDS: Metoprolol Tartrate 50 MG Tablet PO SCH ×2 (09:56→20:36)
[2018-03-30] MEDS: Senna/Docusate Sodium 8.6/50 MG Tablet PO SCH ×2 (09:56→20:36)
--- NOTE | 2018-03-30 15:52 | P.PNIM ---
Subjective Interval history: Nursing denies any deterioration since last night. Patient herself is alert and oriented 3. Physical Exam Vital signs: Vital Signs 03/29/18 20:00 03/30/18 08:00 Temperature 98.3 F 97.8 F Pulse Rate 81 86 Respiratory Rate 17 20 Blood Pressure 111/68 106/73 Pulse Oximetry 99 96 Intake & Output 03/29/18 03/30/18 03/30/18 18:59 06:59 18:59 Intake Total 560 / 560 Balance 560 / 560 Weight 57.3 kg Intake: Oral 560 / 560 Other: # Voids 4 Date of Last Bowel Movement 03/26/18 Narrative: Heart sounds regular rhythm, no murmurs Lungs are clear bilaterally, unlabored breathing Alert and oriented 3, pleasant demeanor Results - Labs CBC & Chem 7: 03/07/18 08:25 03/09/18 08:00 Assessment and Plan - Assessment (1) Altered mental status Code(s): R41.82 - Altered mental status, unspecified Status: Acute Plan: - Plan (1) Altered mental status - The patient is a 52 year old female with past medical history which includes Abnormal LFTs, EtOH abuse, chronic back pain, COPD, hypertension, SVT. Patient was brought to [facility] on 12/13 by friend for confusion x 2 weeks weakness and flu like symptoms. Patient was admitted to [facility] from 12/13/17 to 12/18/17 treated for metabolic encephalopathy related to UTI and then DC'd to [facility]. Patient was seen in the emergency department related to altered mentation and anemia . The patient at that time was had hemoglobin of 9.3 and her rectal examination was negative for blood. She was deemed safe for discharge with follow-up as an outpatient. Patient again presented to the ER 12/25/17 for increased altered mentation since [facility] at approximately 8 :15 AM 12/25. The patient has a baseline history of altered mentation that is thought to be related to her history of alcohol abuse and Wernicke's encephalopathy. - CT head negative - CXR reviewed the lungs are clear - UA does not indicate UTI, no culture indicated - Patient has ETOH abuse - [facility] protocol - Cont. folic acid and thiamine - Ammonia level 15 - TSH 3.710 - RPR nonreactive - EtOH use and review of prior records patient had been drinking 1.5-2 bottles of wine a day and had been decreasing intake. Patient has recently been admitted to [facility] nursing [facility] possibility of EtOH withdrawal causing altered mental status. - PT evaluated - Appreciate Psych evaluation. They did not feel that the patient met criteria for involuntary psychiatric admission. It was felt that the pt may benefit from comprehensive inpatient/outpatient alcohol rehabilitation program. - Supportive care - DC order placed on 12/27/17- case management working on safe DC - CM has enlisted help from Adult Protective Services. No progress has been made to obtain an accepting facility. - Psychiatry re-evaluated 01/08/18- patient does not meet inpatient psych admission criteria - 02/10/18 increase Seroquel to 100 mg PO QHS - Re-consulted psych for competency evaluation, and they declared pt not competent to make her own medical decisions. - [place] [employer] assisting with Medicaid disability application and discharge planning. (2) Anemia - On admission hgb 7.8, Hct 23.7, MCV 105.1 - patient does have hx of ETOH abuse - B12 359 and folic acid 12.2 - Iron 48, total iron-binding capacity 183, percent saturation 26.2 - GI was consulted for possible EGD but unable to get consent so was recommended for outpt followup (3) Hypomagnesemia - magnesium 1.3 on admission - Pt was given replacement (4) Tachyarrhythmia - Pt with history of tachyarrhythmia - s/p EPS with ablation of AV re-entry node tachycardia Dr. Vazquez 2017 cont current bb dose (5) ETOH abuse - [facility] protocol - thiamine and folic acid - seizure precautions (6) COPD (chronic obstructive pulmonary disease) - Does not appear to be in acute exacerbation - duonebs if needed (7) HTN (hypertension) - Blood pressure was elevated during admission - Pt was initially started on amlodipine 5 mg p.o. daily but with tachyarrhythmia the Norvasc was stopped and Metoprolol added - continue with BB with holding parameters.
[2018-03-30] MEDS: QUEtiapine 25 MG Tablet PO SCH (20:36)
[2018-03-31] MEDS: Metoprolol Tartrate 50 MG Tablet PO SCH ×2 (09:37→21:19)
[2018-03-31] MEDS: Senna/Docusate Sodium 8.6/50 MG Tablet PO SCH ×2 (09:37→21:19)
--- NOTE | 2018-03-31 15:22 | P.PNIM ---
Subjective Interval history: Nursing denies any deterioration since last night. Patient herself is pleasant. She asks me if she is only here because she just needs to deliver a baby. Physical Exam Vital signs: Vital Signs 03/30/18 20:00 03/31/18 08:00 Temperature 97.9 F 98 F Pulse Rate 69 69 Respiratory Rate 16 18 Blood Pressure 109/74 96/64 L Pulse Oximetry 97 100 Intake & Output 03/30/18 03/31/18 03/31/18 18:59 06:59 18:59 Weight 57.3 kg Narrative: Lying in bed, awake, alert, no acute distress Clear lungs bilaterally, unlabored breathing Heart sounds regular rate and rhythm Results - Labs CBC & Chem 7: 03/07/18 08:25 03/09/18 08:00 Assessment and Plan - Assessment (1) Altered mental status Code(s): R41.82 - Altered mental status, unspecified Status: Acute Plan: - Plan (1) Altered mental status - The patient is a 52 year old female with past medical history which includes Abnormal LFTs, EtOH abuse, chronic back pain, COPD, hypertension, SVT. Patient was brought to [facility] on 12/13 by friend for confusion x 2 weeks weakness and flu like symptoms. Patient was admitted to [facility] from 12/13/17 to 12/18/17 treated for metabolic encephalopathy related to UTI and then DC'd to [facility]. Patient was seen in the emergency department related to altered mentation and anemia . The patient at that time was had hemoglobin of 9.3 and her rectal examination was negative for blood. She was deemed safe for discharge with follow-up as an outpatient. Patient again presented to the ER 12/25/17 for increased altered mentation since falling at her assisted at approximately 8 :15 AM 12/25. The patient has a baseline history of altered mentation that is thought to be related to her history of alcohol abuse and Wernicke's encephalopathy. Psychiatry is to clear the patient not competent to make her own medical decisions. - CT head negative - Cont. folic acid and thiamine - Ammonia level 15 - TSH 3.710 - RPR nonreactive - EtOH use and review of prior records patient had been drinking 1.5-2 bottles of wine a day and had been decreasing intake. Patient has recently been admitted to [facility] possibility of EtOH withdrawal causing altered mental status. - PT evaluated - Appreciate Psych evaluation. They did not feel that the patient met criteria for involuntary psychiatric admission. It was felt that the pt may benefit from comprehensive inpatient/outpatient alcohol rehabilitation program. - Supportive care - DC order placed on 12/27/17- case management working on safe DC - CM has enlisted help from Adult Protective Services. No progress has been made to obtain an accepting facility. - Psychiatry re-evaluated 01/08/18- patient does not meet inpatient psych admission criteria - 02/10/18 increase Seroquel to 100 mg PO QHS - Re-consulted psych for competency evaluation, and they declared pt not competent to make her own medical decisions. - [place] [employer] assisting with Medicaid disability application and discharge planning. (2) Anemia - On admission hgb 7.8, Hct 23.7, MCV 105.1 - patient does have hx of ETOH abuse - B12 359 and folic acid 12.2 - Iron 48, total iron-binding capacity 183, percent saturation 26.2 - GI was consulted for possible EGD but unable to get consent so was recommended for outpt followup (3) Hypomagnesemia - replace as warranted (4) Tachyarrhythmia - resolved - s/p EPS with ablation of AV re-entry node tachycardia Dr. Vazquez 2017 cont current bb dose (5) ETOH abuse -- thiamine and folic acid - seizure precautions (6) COPD (chronic obstructive pulmonary disease) - duonebs if needed (7) HTN (hypertension) - Blood pressure was elevated during admission - Pt was initially started on amlodipine 5 mg p.o. daily but with tachyarrhythmia the Norvasc was stopped and Metoprolol added - continue with BB with holding parameters.
[2018-03-31] MEDS: QUEtiapine 25 MG Tablet PO SCH (21:19)
[2018-04-01] MEDS: Senna/Docusate Sodium 8.6/50 MG Tablet PO SCH ×2 (09:01→21:40)
[2018-04-01] MEDS: Metoprolol Tartrate 50 MG Tablet PO SCH ×2 (09:01→21:40)
--- NOTE | 2018-04-01 16:23 | P.PNIM ---
Subjective Interval history: Nursing denies any deterioration since last night. Patient herself has no complaints. Physical Exam Vital signs: Vital Signs 03/31/18 20:00 04/01/18 08:00 Temperature 97.8 F 97.8 F Pulse Rate 87 64 Respiratory Rate 18 16 Blood Pressure 156/69 H 107/60 Pulse Oximetry 98 98 Intake & Output 03/31/18 04/01/18 04/01/18 18:59 06:59 18:59 Weight 57.8 kg Other: Date of Last Bowel Movement 03/26/18 Narrative: Lying in bed, sleeping, easily woken, no acute distress, unlabored breathing, pleasant demeanor Results - Labs CBC & Chem 7: 03/07/18 08:25 03/09/18 08:00 Assessment and Plan - Assessment (1) Altered mental status Code(s): R41.82 - Altered mental status, unspecified Status: Acute Plan: - Plan (1) Altered mental status - The patient is a 52 year old female with past medical history which includes Abnormal LFTs, EtOH abuse, chronic back pain, COPD, hypertension, SVT. Patient was brought to [facility] on 12/13 by friend for confusion x 2 weeks weakness and flu like symptoms. Patient was admitted to [facility] from 12/13/17 to 12/18/17 treated for metabolic encephalopathy related to UTI and then DC'd to [facility]. Patient was seen in the emergency department related to altered mentation and anemia . The patient at that time was had hemoglobin of 9.3 and her rectal examination was negative for blood. She was deemed safe for discharge with follow-up as an outpatient. Patient again presented to the ER 12/25/17 for increased altered mentation since falling at her fpc at approximately 8 :15 AM 12/25. The patient has a baseline history of altered mentation that is thought to be related to her history of alcohol abuse and Wernicke's encephalopathy. Psychiatry is to clear the patient not competent to make her own medical decisions. - CT head negative - Cont. folic acid and thiamine - Ammonia level 15 - TSH 3.710 - RPR nonreactive - EtOH use and review of prior records patient had been drinking 1.5-2 bottles of wine a day and had been decreasing intake. Patient has recently been admitted to [facility] possibility of EtOH withdrawal causing altered mental status. - PT evaluated - Appreciate Psych evaluation. They did not feel that the patient met criteria for involuntary psychiatric admission. It was felt that the pt may benefit from comprehensive inpatient/outpatient alcohol rehabilitation program. - Supportive care - DC order placed on 12/27/17- case management working on safe DC - CM has enlisted help from Adult Protective Services. No progress has been made to obtain an accepting facility. - Psychiatry re-evaluated 01/08/18- patient does not meet inpatient psych admission criteria - 02/10/18 increase Seroquel to 100 mg PO QHS - Re-consulted psych for competency evaluation, and they declared pt not competent to make her own medical decisions. - [place] [employer] assisting with Medicaid disability application and discharge planning. (2) Anemia - On admission hgb 7.8, Hct 23.7, MCV 105.1 - patient does have hx of ETOH abuse - B12 359 and folic acid 12.2 - Iron 48, total iron-binding capacity 183, percent saturation 26.2 - GI was consulted for possible EGD but unable to get consent so was recommended for outpt followup (3) Hypomagnesemia - replace as warranted (4) Tachyarrhythmia - resolved - s/p EPS with ablation of AV re-entry node tachycardia Dr. Vazquez 2017 cont current bb dose (5) ETOH abuse -- thiamine and folic acid - seizure precautions (6) COPD (chronic obstructive pulmonary disease) - duonebs if needed (7) HTN (hypertension) - Blood pressure was elevated during admission - Pt was initially started on amlodipine 5 mg p.o. daily but with tachyarrhythmia the Norvasc was stopped and Metoprolol added - continue with BB with holding parameters.
[2018-04-01] MEDS: QUEtiapine 25 MG Tablet PO SCH (21:40)
[2018-04-02] MEDS: Metoprolol Tartrate 50 MG Tablet PO SCH ×2 (09:00→20:11)
[2018-04-02] MEDS: Senna/Docusate Sodium 8.6/50 MG Tablet PO SCH ×2 (09:01→20:11)
--- NOTE | 2018-04-02 14:27 | P.PNIM ---
Subjective Interval history: Nursing denies any deterioration since last night. Patient herself has no new complaints. She asks me who I am, I tell her I am her doctor. Physical Exam Vital signs: Vital Signs 04/01/18 20:00 04/02/18 08:00 Temperature 97.8 F 98.2 F Pulse Rate 73 69 Respiratory Rate 17 20 Blood Pressure 150/65 H 118/57 L Pulse Oximetry 95 96 Intake & Output 04/01/18 04/02/18 04/02/18 18:59 06:59 18:59 Intake Total 240 / 240 Balance 240 / 240 Weight 58 kg Intake: Oral 240 / 240 Other: # Voids 2 Date of Last Bowel Movement 03/26/18 03/31/18 03/31/18 # Bowel Movements 1 Narrative: Lying in bed, sleeping easily, easily woken Unlabored breathing, no acute distress, pleasant demeanor Results - Labs CBC & Chem 7: 03/07/18 08:25 03/09/18 08:00 Assessment and Plan - Assessment (1) Altered mental status Code(s): R41.82 - Altered mental status, unspecified Status: Acute Plan: - Plan (1) Altered mental status - The patient is a 52 year old female with past medical history which includes Abnormal LFTs, EtOH abuse, chronic back pain, COPD, hypertension, SVT. Patient was brought to [facility] on 12/13 by friend for confusion x 2 weeks weakness and flu like symptoms. Patient was admitted to [facility] from 12/13/17 to 12/18/17 treated for metabolic encephalopathy related to UTI and then DC'd to [facility]. Patient was seen in the emergency department related to altered mentation and anemia . The patient at that time was had hemoglobin of 9.3 and her rectal examination was negative for blood. She was deemed safe for discharge with follow-up as an outpatient. Patient again presented to the ER 12/25/17 for increased altered mentation since falling at her assisted at approximately 8 :15 AM 12/25. The patient has a baseline history of altered mentation that is thought to be related to her history of alcohol abuse and Wernicke's encephalopathy. Psychiatry is to clear the patient not competent to make her own medical decisions. - CT head negative - Cont. folic acid and thiamine - Ammonia level 15 - TSH 3.710 - RPR nonreactive - EtOH use and review of prior records patient had been drinking 1.5-2 bottles of wine a day and had been decreasing intake. Patient has recently been admitted to [facility] possibility of EtOH withdrawal causing altered mental status. - PT evaluated - Appreciate Psych evaluation. They did not feel that the patient met criteria for involuntary psychiatric admission. It was felt that the pt may benefit from comprehensive inpatient/outpatient alcohol rehabilitation program. - Supportive care - DC order placed on 12/27/17- case management working on safe DC - CM has enlisted help from Adult Protective Services. No progress has been made to obtain an accepting facility. - Psychiatry re-evaluated 01/08/18- patient does not meet inpatient psych admission criteria - 02/10/18 increase Seroquel to 100 mg PO QHS - Re-consulted psych for competency evaluation, and they declared pt not competent to make her own medical decisions. - [place] [employer] assisting with Medicaid disability application and discharge planning. (2) Anemia - On admission hgb 7.8, Hct 23.7, MCV 105.1 - patient does have hx of ETOH abuse - B12 359 and folic acid 12.2 - Iron 48, total iron-binding capacity 183, percent saturation 26.2 - GI was consulted for possible EGD but unable to get consent so was recommended for outpt followup (3) Hypomagnesemia - replace as warranted (4) Tachyarrhythmia - resolved - s/p EPS with ablation of AV re-entry node tachycardia Dr. Vazquez 2017 cont current bb dose (5) ETOH abuse -- thiamine and folic acid - seizure precautions (6) COPD (chronic obstructive pulmonary disease) - duonebs if needed (7) HTN (hypertension) - Blood pressure was elevated during admission - Pt was initially started on amlodipine 5 mg p.o. daily but with tachyarrhythmia the Norvasc was stopped and Metoprolol added - continue with BB with holding parameters.
[2018-04-02] MEDS: QUEtiapine 25 MG Tablet PO SCH (20:12)
[2018-04-03] MEDS: Metoprolol Tartrate 50 MG Tablet PO SCH ×2 (08:46→20:33)
[2018-04-03] MEDS: Senna/Docusate Sodium 8.6/50 MG Tablet PO SCH ×2 (08:46→20:32)
--- NOTE | 2018-04-03 14:44 | P.PNIM ---
Subjective Interval history: Nursing denies any deterioration. Admits she has to adequate appetite. Physical Exam Vital signs: Vital Signs 04/02/18 20:00 04/03/18 08:00 Temperature 98 F 97.9 F Pulse Rate 95 H 80 Respiratory Rate 15 16 Blood Pressure 126/57 L 95/58 L Pulse Oximetry 98 98 Intake & Output 04/02/18 04/03/18 04/03/18 18:59 06:59 18:59 Intake Total 600 / 600 Balance 600 / 600 Weight 58.1 kg Intake: Oral 600 / 600 Other: # Voids 3 Date of Last Bowel Movement 03/31/18 04/01/18 # Bowel Movements 0 Narrative: Lying in bed, easily awoken, no acute distress, pleasant mood Results - Labs CBC & Chem 7: 03/07/18 08:25 03/09/18 08:00 Assessment and Plan - Assessment (1) Altered mental status Code(s): R41.82 - Altered mental status, unspecified Status: Acute Plan: - Plan (1) Altered mental status - The patient is a 52 year old female with past medical history which includes Abnormal LFTs, EtOH abuse, chronic back pain, COPD, hypertension, SVT. Patient was brought to [facility] on 12/13 by friend for confusion x 2 weeks weakness and flu like symptoms. Patient was admitted to [facility] from 12/13/17 to 12/18/17 treated for metabolic encephalopathy related to UTI and then DC'd to [facility]. Patient was seen in the emergency department related to altered mentation and anemia . The patient at that time was had hemoglobin of 9.3 and her rectal examination was negative for blood. She was deemed safe for discharge with follow-up as an outpatient. Patient again presented to the ER 12/25/17 for increased altered mentation since falling at her snf at approximately 8 :15 AM 12/25. The patient has a baseline history of altered mentation that is thought to be related to her history of alcohol abuse and Wernicke's encephalopathy. Psychiatry is to clear the patient not competent to make her own medical decisions. - CT head negative - Cont. folic acid and thiamine - Ammonia level 15 - TSH 3.710 - RPR nonreactive - EtOH use and review of prior records patient had been drinking 1.5-2 bottles of wine a day and had been decreasing intake. Patient has recently been admitted to [facility] possibility of EtOH withdrawal causing altered mental status. - PT evaluated - Appreciate Psych evaluation. They did not feel that the patient met criteria for involuntary psychiatric admission. It was felt that the pt may benefit from comprehensive inpatient/outpatient alcohol rehabilitation program. - Supportive care - DC order placed on 12/27/17- case management working on safe DC - CM has enlisted help from Adult Protective Services. No progress has been made to obtain an accepting facility. - Psychiatry re-evaluated 01/08/18- patient does not meet inpatient psych admission criteria - 02/10/18 increase Seroquel to 100 mg PO QHS - Re-consulted psych for competency evaluation, and they declared pt not competent to make her own medical decisions. - [place] [employer] assisting with Medicaid disability application and discharge planning. (2) Anemia - On admission hgb 7.8, Hct 23.7, MCV 105.1 - patient does have hx of ETOH abuse - B12 359 and folic acid 12.2 - Iron 48, total iron-binding capacity 183, percent saturation 26.2 - GI was consulted for possible EGD but unable to get consent so was recommended for outpt followup (3) Hypomagnesemia - replace as warranted (4) Tachyarrhythmia - resolved - s/p EPS with ablation of AV re-entry node tachycardia Dr. Vazquez 2017 cont current bb dose (5) ETOH abuse -- thiamine and folic acid - seizure precautions (6) COPD (chronic obstructive pulmonary disease) - duonebs if needed (7) HTN (hypertension) - Blood pressure was elevated during admission - Pt was initially started on amlodipine 5 mg p.o. daily but with tachyarrhythmia the Norvasc was stopped and Metoprolol added - continue with BB with holding parameters.
[2018-04-03] MEDS: QUEtiapine 25 MG Tablet PO SCH (20:29)
[2018-04-04] MEDS: Metoprolol Tartrate 50 MG Tablet PO SCH ×2 (09:56→21:12)
[2018-04-04] MEDS: Senna/Docusate Sodium 8.6/50 MG Tablet PO SCH ×2 (09:56→21:12)
--- NOTE | 2018-04-04 16:13 | P.PNIM ---
Subjective Interval history: Nursing denies any deterioration since last night. Patient has no new complaints. Physical Exam Vital signs: Vital Signs 04/03/18 20:00 04/04/18 08:00 Temperature 98.1 F 97.9 F Pulse Rate 81 77 Respiratory Rate 20 18 Blood Pressure 105/74 107/63 Pulse Oximetry 98 98 Intake & Output 04/03/18 04/04/18 04/04/18 18:59 06:59 18:59 Intake Total 360 / 360 Balance 360 / 360 Weight 57 kg Intake: Oral 360 / 360 Other: # Voids 2 Date of Last Bowel Movement 04/01/18 # Bowel Movements 0 Narrative: Seen standing, ambulating in hallway Results - Labs CBC & Chem 7: 03/07/18 08:25 03/09/18 08:00 Assessment and Plan - Assessment (1) Altered mental status Code(s): R41.82 - Altered mental status, unspecified Status: Acute Plan: - Plan (1) Altered mental status - The patient is a 52 year old female with past medical history which includes Abnormal LFTs, EtOH abuse, chronic back pain, COPD, hypertension, SVT. Patient was brought to [facility] on 12/13 by friend for confusion x 2 weeks weakness and flu like symptoms. Patient was admitted to [facility] from 12/13/17 to 12/18/17 treated for metabolic encephalopathy related to UTI and then DC'd to [facility]. Patient was seen in the emergency department related to altered mentation and anemia . The patient at that time was had hemoglobin of 9.3 and her rectal examination was negative for blood. She was deemed safe for discharge with follow-up as an outpatient. Patient again presented to the ER 12/25/17 for increased altered mentation since falling at her custodial at approximately 8 :15 AM 12/25. The patient has a baseline history of altered mentation that is thought to be related to her history of alcohol abuse and Wernicke's encephalopathy. Psychiatry is to clear the patient not competent to make her own medical decisions. - CT head negative - Cont. folic acid and thiamine - Ammonia level 15 - TSH 3.710 - RPR nonreactive - EtOH use and review of prior records patient had been drinking 1.5-2 bottles of wine a day and had been decreasing intake. Patient has recently been admitted to [facility] possibility of EtOH withdrawal causing altered mental status. - PT evaluated - Appreciate Psych evaluation. They did not feel that the patient met criteria for involuntary psychiatric admission. It was felt that the pt may benefit from comprehensive inpatient/outpatient alcohol rehabilitation program. - Supportive care - DC order placed on 12/27/17- case management working on safe DC - CM has enlisted help from Adult Protective Services. No progress has been made to obtain an accepting facility. - Psychiatry re-evaluated 01/08/18- patient does not meet inpatient psych admission criteria - 02/10/18 increase Seroquel to 100 mg PO QHS - Re-consulted psych for competency evaluation, and they declared pt not competent to make her own medical decisions. - [place] [employer] assisting with Medicaid disability application and discharge planning. (2) Anemia - On admission hgb 7.8, Hct 23.7, MCV 105.1 - patient does have hx of ETOH abuse - B12 359 and folic acid 12.2 - Iron 48, total iron-binding capacity 183, percent saturation 26.2 - GI was consulted for possible EGD but unable to get consent so was recommended for outpt followup (3) Hypomagnesemia - replace as warranted (4) Tachyarrhythmia - resolved - s/p EPS with ablation of AV re-entry node tachycardia Dr. Vazquez 2017 cont current bb dose (5) ETOH abuse -- thiamine and folic acid - seizure precautions (6) COPD (chronic obstructive pulmonary disease) - duonebs if needed (7) HTN (hypertension) - Blood pressure was elevated during admission - Pt was initially started on amlodipine 5 mg p.o. daily but with tachyarrhythmia the Norvasc was stopped and Metoprolol added - continue with BB with holding parameters.
[2018-04-04] MEDS: QUEtiapine 25 MG Tablet PO SCH (21:13)
[2018-04-04] MEDS: LORazepam 0.5 MG Tablet PO PRN (21:13)
[2018-04-05] MEDS: Senna/Docusate Sodium 8.6/50 MG Tablet PO SCH ×2 (09:36→21:22)
[2018-04-05] MEDS: Metoprolol Tartrate 50 MG Tablet PO SCH ×2 (09:37→21:00)
--- NOTE | 2018-04-05 17:08 | P.PNIM ---
Subjective Interval history: Any deterioration since last night. Patient herself has no new complaints. She asks me who I am, as I say I am her doctor, she is happy with my response. Physical Exam Vital signs: Vital Signs 04/04/18 20:00 04/05/18 08:00 Temperature 98.2 F 97.9 F Pulse Rate 86 68 Respiratory Rate 16 18 Blood Pressure 124/62 89/58 L Pulse Oximetry 96 96 Intake & Output 04/04/18 04/05/18 04/05/18 18:59 06:59 18:59 Intake Total 480 / 480 Balance 480 / 480 Weight 57 kg 52.1 kg Intake: Oral 480 / 480 Other: # Voids 4 Narrative: Lying in bed, sleeping comfortably Easily woken, no acute distress, unlabored breathing Results - Labs CBC & Chem 7: 03/07/18 08:25 03/09/18 08:00 Assessment and Plan - Assessment (1) Altered mental status Code(s): R41.82 - Altered mental status, unspecified Status: Acute Plan: - Plan (1) Altered mental status - The patient is a 52 year old female with past medical history which includes Abnormal LFTs, EtOH abuse, chronic back pain, COPD, hypertension, SVT. Patient was brought to [facility] on 12/13 by friend for confusion x 2 weeks weakness and flu like symptoms. Patient was admitted to [facility] from 12/13/17 to 12/18/17 treated for metabolic encephalopathy related to UTI and then DC'd to [facility]. Patient was seen in the emergency department related to altered mentation and anemia . The patient at that time was had hemoglobin of 9.3 and her rectal examination was negative for blood. She was deemed safe for discharge with follow-up as an outpatient. Patient again presented to the ER 12/25/17 for increased altered mentation since falling at her [facility] at approximately 8 :15 AM 12/25. The patient has a baseline history of altered mentation that is thought to be related to her history of alcohol abuse and Wernicke's encephalopathy. Psychiatry is to clear the patient not competent to make her own medical decisions. - CT head negative - Cont. folic acid and thiamine - Ammonia level 15 - TSH 3.710 - RPR nonreactive - EtOH use and review of prior records patient had been drinking 1.5-2 bottles of wine a day and had been decreasing intake. Patient has recently been admitted to [facility] nursing [facility] possibility of EtOH withdrawal causing altered mental status. - PT evaluated - Appreciate Psych evaluation. They did not feel that the patient met criteria for involuntary psychiatric admission. It was felt that the pt may benefit from comprehensive inpatient/outpatient alcohol rehabilitation program. - Supportive care - DC order placed on 12/27/17- case management working on safe DC - CM has enlisted help from Adult Protective Services. No progress has been made to obtain an accepting facility. - Psychiatry re-evaluated 01/08/18- patient does not meet inpatient psych admission criteria - 02/10/18 increase Seroquel to 100 mg PO QHS - Re-consulted psych for competency evaluation, and they declared pt not competent to make her own medical decisions. - [place] [employer] assisting with Medicaid disability application and discharge planning. (2) Anemia - On admission hgb 7.8, Hct 23.7, MCV 105.1 - patient does have hx of ETOH abuse - B12 359 and folic acid 12.2 - Iron 48, total iron-binding capacity 183, percent saturation 26.2 - GI was consulted for possible EGD but unable to get consent so was recommended for outpt followup (3) Hypomagnesemia - replace as warranted (4) Tachyarrhythmia - resolved - s/p EPS with ablation of AV re-entry node tachycardia Dr. Vazquez 2017 cont current bb dose (5) ETOH abuse -- thiamine and folic acid - seizure precautions (6) COPD (chronic obstructive pulmonary disease) - duonebs if needed (7) HTN (hypertension) - Blood pressure was elevated during admission - Pt was initially started on amlodipine 5 mg p.o. daily but with tachyarrhythmia the Norvasc was stopped and Metoprolol added - continue with BB with holding parameters.
[2018-04-05] MEDS: QUEtiapine 25 MG Tablet PO SCH (21:22)
[2018-04-06] MEDS: Metoprolol Tartrate 50 MG Tablet PO SCH ×2 (08:36→20:38)
[2018-04-06] MEDS: Senna/Docusate Sodium 8.6/50 MG Tablet PO SCH ×2 (08:37→20:38)
--- NOTE | 2018-04-06 13:03 | P.PN ---
Subjective Interval history: No change in status per nursing staff. Patient remains pleasantly confused. Physical Exam Vital signs: Vital Signs 04/05/18 20:00 04/06/18 08:00 Temperature 98 F 97.7 F Pulse Rate 86 79 Respiratory Rate 18 18 Blood Pressure 105/56 L 89/58 L Pulse Oximetry 98 96 Intake & Output 04/05/18 04/06/18 04/06/18 18:59 06:59 18:59 Weight 52.1 kg Other: Date of Last Bowel Movement 04/05/18 04/05/18 Narrative: Gen: Patient sitting at the side of her bed, eating breakfast, very pleasant Skin: Warm and dry CV: Regular rate and rhythm Resp: CTAB, unlabored breathing Abd: Normoactive bowel sounds, NTTP Ext: No cyanosis or edema, calves nontender to palpation Psych: Normal affect Results - Labs CBC & Chem 7: 03/07/18 08:25 03/09/18 08:00 Assessment and Plan - Assessment (1) Altered mental status Code(s): R41.82 - Altered mental status, unspecified Status: Chronic (2) Anemia Code(s): D64.9 - Anemia, unspecified Status: Chronic (3) Hypomagnesemia Code(s): E83.42 - Hypomagnesemia Status: Chronic (4) Tachyarrhythmia Code(s): R00.0 - Tachycardia, unspecified Status: Chronic (5) ETOH abuse Code(s): F10.10 - Alcohol abuse, uncomplicated Status: Chronic (6) COPD (chronic obstructive pulmonary disease) Code(s): J44.9 - Chronic obstructive pulmonary disease, unspecified Status: Chronic (7) HTN (hypertension) Code(s): I10 - Essential (primary) hypertension Status: Chronic - Plan (1) Altered mental status - The patient is a 52 year old female with past medical history which includes Abnormal LFTs, EtOH abuse, chronic back pain, COPD, hypertension, SVT. Patient was brought to [facility] on 12/13 by friend for confusion x 2 weeks weakness and flu like symptoms. Patient was admitted to [facility] from 12/13/17 to 12/18/17 treated for metabolic encephalopathy related to UTI and then DC'd to [facility]. Patient was seen in the emergency department related to altered mentation and anemia . The patient at that time was had hemoglobin of 9.3 and her rectal examination was negative for blood. She was deemed safe for discharge with follow-up as an outpatient. Patient again presented to the ER 12/25/17 for increased altered mentation since falling at her detention at approximately 8 :15 AM 12/25. The patient has a baseline history of altered mentation that is thought to be related to her history of alcohol abuse and Wernicke's encephalopathy. Psychiatry determined that she is not competent to make her own medical decisions. - CT head negative - Cont. folic acid and thiamine - Ammonia level 15 - TSH 3.710 - RPR nonreactive - EtOH use and review of prior records patient had been drinking 1.5-2 bottles of wine a day and had been decreasing intake. Patient has recently been admitted to [facility] possibility of EtOH withdrawal causing altered mental status. - PT evaluated - Appreciate Psych evaluation. They did not feel that the patient met criteria for involuntary psychiatric admission. It was felt that the pt may benefit from comprehensive inpatient/outpatient alcohol rehabilitation program. - Supportive care - DC order placed on 12/27/17- case management working on safe DC - CM has enlisted help from Adult Protective Services. No progress has been made to obtain an accepting facility. - Psychiatry re-evaluated 01/08/18- patient does not meet inpatient psych admission criteria - 02/10/18 increase Seroquel to 100 mg PO QHS - Re-consulted psych for competency evaluation, and they declared pt not competent to make her own medical decisions. - [place] [employer] assisting with Medicaid disability application and discharge planning. (2) Anemia - On admission hgb 7.8, Hct 23.7, MCV 105.1 - Patient does have hx of ETOH abuse - B12 359 and folic acid 12.2 - Iron 48, total iron-binding capacity 183, percent saturation 26.2 - GI was consulted for possible EGD but unable to get consent so was recommended for outpt followup (3) Hypomagnesemia - replace as warranted (4) Tachyarrhythmia - resolved - s/p EPS with ablation of AV re-entry node tachycardia Dr. Vazquez 2017 cont current bb dose (5) ETOH abuse -- thiamine and folic acid - seizure precautions (6) COPD (chronic obstructive pulmonary disease) - duonebs if needed (7) HTN (hypertension) - Blood pressure was elevated during admission - continue with BB with holding parameters (2) Anemia Qualifiers: Anemia type: unspecified type Qualified Code(s): D64.9 - Anemia, unspecified
[2018-04-06] MEDS: QUEtiapine 25 MG Tablet PO SCH (20:38)
--- NOTE | 2018-04-07 07:40 | P.PN ---
Subjective Interval history: Patient this morning. When asked how she is doing, she stated that she has had better days because she is trying to decide where to go from year. She does not remember when she leaves but states that she lived with her grandmother. Otherwise, she has no physical or clinical symptoms or complaints. Physical Exam Vital signs: Vital Signs 04/06/18 08:00 04/06/18 20:00 Temperature 97.7 F 98.0 F Pulse Rate 79 78 Respiratory Rate 18 17 Blood Pressure 89/58 L 114/64 Pulse Oximetry 96 98 Intake & Output 04/06/18 04/07/18 04/07/18 18:59 06:59 18:59 Intake Total 480 / 480 240 / 240 Balance 480 / 480 240 / 240 Weight 55.4 kg Intake: Oral 480 / 480 240 / 240 Other: # Voids 4 2 Date of Last Bowel Movement 04/05/18 04/06/18 Narrative: Gen: Patient lying in bed, in no acute distress Skin: Warm and dry CV: Regular rate and rhythm Resp: CTAB, unlabored breathing Abd: Normoactive bowel sounds, NTTP Ext: No cyanosis or edema, calves nontender to palpation Psych: Normal affect Results - Labs CBC & Chem 7: 03/07/18 08:25 03/09/18 08:00 Assessment and Plan - Assessment (1) Altered mental status Code(s): R41.82 - Altered mental status, unspecified Status: Chronic (2) Anemia Code(s): D64.9 - Anemia, unspecified Status: Chronic (3) Hypomagnesemia Code(s): E83.42 - Hypomagnesemia Status: Chronic (4) Tachyarrhythmia Code(s): R00.0 - Tachycardia, unspecified Status: Chronic (5) ETOH abuse Code(s): F10.10 - Alcohol abuse, uncomplicated Status: Chronic (6) COPD (chronic obstructive pulmonary disease) Code(s): J44.9 - Chronic obstructive pulmonary disease, unspecified Status: Chronic (7) HTN (hypertension) Code(s): I10 - Essential (primary) hypertension Status: Chronic - Plan (1) Altered mental status - The patient is a 52 year old female with past medical history which includes Abnormal LFTs, EtOH abuse, chronic back pain, COPD, hypertension, SVT. Patient was brought to [facility] on 12/13 by friend for confusion x 2 weeks weakness and flu like symptoms. Patient was admitted to [facility] from 12/13/17 to 12/18/17 treated for metabolic encephalopathy related to UTI and then DC'd to [facility]. Patient was seen in the emergency department related to altered mentation and anemia . The patient at that time was had hemoglobin of 9.3 and her rectal examination was negative for blood. She was deemed safe for discharge with follow-up as an outpatient. Patient again presented to the ER 12/25/17 for increased altered mentation since falling at her detention at approximately 8 :15 AM 12/25. The patient has a baseline history of altered mentation that is thought to be related to her history of alcohol abuse and Wernicke's encephalopathy. Psychiatry determined that she is not competent to make her own medical decisions. - CT head negative - Cont. folic acid and thiamine - Ammonia level 15 - TSH 3.710 - RPR nonreactive - EtOH use and review of prior records patient had been drinking 1.5-2 bottles of wine a day and had been decreasing intake. Patient has recently been admitted to [facility] possibility of EtOH withdrawal causing altered mental status. - PT evaluated - Appreciate Psych evaluation. They did not feel that the patient met criteria for involuntary psychiatric admission. It was felt that the pt may benefit from comprehensive inpatient/outpatient alcohol rehabilitation program. - Supportive care - DC order placed on 12/27/17- case management working on safe DC - CM has enlisted help from Adult Protective Services. No progress has been made to obtain an accepting facility. - Psychiatry re-evaluated 01/08/18- patient does not meet inpatient psych admission criteria - 02/10/18 increase Seroquel to 100 mg PO QHS - Re-consulted psych for competency evaluation, and they declared pt not competent to make her own medical decisions. - [place] [employer] assisting with Medicaid disability application and discharge planning. (2) Anemia - On admission hgb 7.8, Hct 23.7, MCV 105.1 - Patient does have hx of ETOH abuse - B12 359 and folic acid 12.2 - Iron 48, total iron-binding capacity 183, percent saturation 26.2 - GI was consulted for possible EGD but unable to get consent so was recommended for outpt followup (3) Hypomagnesemia - replace as warranted (4) Tachyarrhythmia - resolved - s/p EPS with ablation of AV re-entry node tachycardia Dr. Vazquez 2017 cont current bb dose (5) ETOH abuse -- thiamine and folic acid - seizure precautions (6) COPD (chronic obstructive pulmonary disease) - duonebs if needed (7) HTN (hypertension) - Blood pressure was elevated during admission - continue with BB with holding parameters (2) Anemia Qualifiers: Anemia type: unspecified type Qualified Code(s): D64.9 - Anemia, unspecified
[2018-04-07] MEDS: Metoprolol Tartrate 50 MG Tablet PO SCH ×2 (09:12→21:57)
[2018-04-07] MEDS: Senna/Docusate Sodium 8.6/50 MG Tablet PO SCH ×2 (09:12→21:57)
[2018-04-07] MEDS: QUEtiapine 25 MG Tablet PO SCH (21:50)
[2018-04-08] MEDS: Metoprolol Tartrate 50 MG Tablet PO SCH ×2 (09:37→20:54)
[2018-04-08] MEDS: Senna/Docusate Sodium 8.6/50 MG Tablet PO SCH ×2 (09:37→20:53)
--- NOTE | 2018-04-08 16:55 | P.PNIM ---
Subjective Interval history: Patient says she is feeling right. Denies any chest pain shortness of breath. She volunteers that she is afraid of leaving the hospital as she has nowhere to go. Physical Exam Vital signs: Vital Signs 04/07/18 20:00 04/08/18 07:53 Temperature 98.1 F 97.5 F L Pulse Rate 78 63 Respiratory Rate 20 17 Blood Pressure 109/64 94/58 L Pulse Oximetry 98 98 Intake & Output 04/07/18 04/08/18 04/08/18 18:59 06:59 18:59 Intake Total 500 / 500 Balance 500 / 500 Weight 55.4 kg Intake: Oral 500 / 500 Other: # Voids 4 Date of Last Bowel Movement 04/06/18 Narrative: GENERAL: Patient sitting up in bed. Appears comfortable. SKIN: Warm and dry. HEAD: Normocephalic. EYES: No scleral icterus. No injection or drainage. NECK: Supple, trachea midline. No JVD. CARDIOVASCULAR: Regular rate and rhythm without murmurs, gallops, or rubs. RESPIRATORY: Breath sounds equal bilaterally. No accessory muscle use. GASTROINTESTINAL: Abdomen soft, non-tender, nondistended. MUSCULOSKELETAL: No cyanosis, or edema. BACK: Nontender without obvious deformity. No CVA tenderness. Results - Labs CBC & Chem 7: 03/07/18 08:25 03/09/18 08:00 Assessment and Plan - Assessment (1) Altered mental status Code(s): R41.82 - Altered mental status, unspecified Status: Chronic Plan: - Plan = 04/08. Patient seen and examined. Discussed with case management and nursing. No changes in medical management. //Altered mental status - The patient is a 52 year old female with past medical history which includes Abnormal LFTs, EtOH abuse, chronic back pain, COPD, hypertension, SVT. Patient was brought to [facility] on 12/13 by friend for confusion x 2 weeks weakness and flu like symptoms. Patient was admitted to [facility] from 12/13/17 to 12/18/17 treated for metabolic encephalopathy related to UTI and then DC'd to [facility]. Patient was seen in the emergency department related to altered mentation and anemia . The patient at that time was had hemoglobin of 9.3 and her rectal examination was negative for blood. She was deemed safe for discharge with follow-up as an outpatient. Patient again presented to the ER 12/25/17 for increased altered mentation since falling at her [facility] at approximately 8 :15 AM 12/25. The patient has a baseline history of altered mentation that is thought to be related to her history of alcohol abuse and Wernicke's encephalopathy. Psychiatry determined that she is not competent to make her own medical decisions. - CT head negative - Cont. folic acid and thiamine - Ammonia level 15 - TSH 3.710 - RPR nonreactive - EtOH use and review of prior records patient had been drinking 1.5-2 bottles of wine a day and had been decreasing intake. Patient has recently been admitted to [facility] possibility of EtOH withdrawal causing altered mental status. - PT evaluated - Appreciate Psych evaluation. They did not feel that the patient met criteria for involuntary psychiatric admission. It was felt that the pt may benefit from comprehensive inpatient/outpatient alcohol rehabilitation program. - Supportive care - DC order placed on 12/27/17- case management working on safe DC - CM has enlisted help from Adult Protective Services. No progress has been made to obtain an accepting facility. - Psychiatry re-evaluated 01/08/18- patient does not meet inpatient psych admission criteria - 02/10/18 increase Seroquel to 100 mg PO QHS - Re-consulted psych for competency evaluation, and they declared pt not competent to make her own medical decisions. - [place] [employer] assisting with Medicaid disability application and discharge planning. //Anemia - On admission hgb 7.8, Hct 23.7, MCV 105.1 - Patient does have hx of ETOH abuse - B12 359 and folic acid 12.2 - Iron 48, total iron-binding capacity 183, percent saturation 26.2 - GI was consulted for possible EGD but unable to get consent so was recommended for outpt followup //Hypomagnesemia - replace as warranted //Tachyarrhythmia - resolved - s/p EPS with ablation of AV re-entry node tachycardia Dr. Vazquez 2016 cont current bb dose //ETOH abuse -- thiamine and folic acid - seizure precautions //COPD (chronic obstructive pulmonary disease) - duonebs if needed //HTN (hypertension) - Blood pressure was elevated during admission - continue with BB with holding parameters Discussed Condition With: Patient, nurse, keycase assembler.
[2018-04-08] MEDS: QUEtiapine 25 MG Tablet PO SCH (20:53)
[2018-04-09] MEDS: Metoprolol Tartrate 50 MG Tablet PO SCH ×2 (09:04→20:06)
[2018-04-09] MEDS: Senna/Docusate Sodium 8.6/50 MG Tablet PO SCH ×2 (09:05→20:07)
--- NOTE | 2018-04-09 11:37 | P.PNIM ---
Subjective Interval history: Patient says she is feeling right. No complaints. Says she is pleased to meet me, does not remember meeting me yesterday. Physical Exam Vital signs: Vital Signs 04/08/18 20:00 04/09/18 08:00 Temperature 97.9 F 97.7 F Pulse Rate 80 71 Respiratory Rate 18 18 Blood Pressure 114/80 113/66 Pulse Oximetry 99 98 Intake & Output 04/08/18 04/09/18 04/09/18 18:59 06:59 18:59 Intake Total 420 / 420 Balance 420 / 420 Weight 55.8 kg Intake: Oral 420 / 420 Other: # Voids 4 Date of Last Bowel Movement 04/06/18 # Bowel Movements 0 Narrative: GENERAL: Patient sleeping, wakes up for exam. Appears comfortable. SKIN: Warm and dry. HEAD: Normocephalic. EYES: No scleral icterus. No injection or drainage. NECK: Supple, trachea midline. No JVD. CARDIOVASCULAR: Regular rate and rhythm without murmurs, gallops, or rubs. RESPIRATORY: Breath sounds equal bilaterally. No accessory muscle use. GASTROINTESTINAL: Abdomen soft, non-tender, nondistended. MUSCULOSKELETAL: No cyanosis, or edema. BACK: Nontender without obvious deformity. No CVA tenderness. Results - Labs CBC & Chem 7: 03/07/18 08:25 03/09/18 08:00 Assessment and Plan - Assessment (1) Altered mental status Code(s): R41.82 - Altered mental status, unspecified Status: Chronic Plan: - Plan = 04/09. Patient seen and examined. Discussed with case management and nursing. Continue to work on safe discharge. No changes in medical management. //Altered mental status - The patient is a 52 year old female with past medical history which includes Abnormal LFTs, EtOH abuse, chronic back pain, COPD, hypertension, SVT. Patient was brought to [facility] on 12/13 by friend for confusion x 2 weeks weakness and flu like symptoms. Patient was admitted to [facility] from 12/13/17 to 12/18/17 treated for metabolic encephalopathy related to UTI and then DC'd to [facility]. Patient was seen in the emergency department related to altered mentation and anemia . The patient at that time was had hemoglobin of 9.3 and her rectal examination was negative for blood. She was deemed safe for discharge with follow-up as an outpatient. Patient again presented to the ER 12/25/17 for increased altered mentation since falling at her custodial at approximately 8 :15 AM 12/25. The patient has a baseline history of altered mentation that is thought to be related to her history of alcohol abuse and Wernicke's encephalopathy. Psychiatry determined that she is not competent to make her own medical decisions. - CT head negative - Cont. folic acid and thiamine - Ammonia level 15 - TSH 3.710 - RPR nonreactive - EtOH use and review of prior records patient had been drinking 1.5-2 bottles of wine a day and had been decreasing intake. Patient has recently been admitted to [facility] possibility of EtOH withdrawal causing altered mental status. - PT evaluated - Appreciate Psych evaluation. They did not feel that the patient met criteria for involuntary psychiatric admission. It was felt that the pt may benefit from comprehensive inpatient/outpatient alcohol rehabilitation program. - Supportive care - DC order placed on 12/27/17- case management working on safe DC - CM has enlisted help from Adult Protective Services. No progress has been made to obtain an accepting facility. - Psychiatry re-evaluated 01/08/18- patient does not meet inpatient psych admission criteria - 02/10/18 increase Seroquel to 100 mg PO QHS - Re-consulted psych for competency evaluation, and they declared pt not competent to make her own medical decisions. - [place] [employer] assisting with Medicaid disability application and discharge planning. //Anemia - On admission hgb 7.8, Hct 23.7, MCV 105.1 - Patient does have hx of ETOH abuse - B12 359 and folic acid 12.2 - Iron 48, total iron-binding capacity 183, percent saturation 26.2 - GI was consulted for possible EGD but unable to get consent so was recommended for outpt followup //Hypomagnesemia - replace as warranted //Tachyarrhythmia - resolved - s/p EPS with ablation of AV re-entry node tachycardia Dr. Vazquez 2016 cont current bb dose //ETOH abuse -- thiamine and folic acid - seizure precautions //COPD (chronic obstructive pulmonary disease) - duonebs if needed //HTN (hypertension) - Blood pressure was elevated during admission - continue with BB with holding parameters
[2018-04-09] MEDS: QUEtiapine 25 MG Tablet PO SCH (20:07)
[2018-04-10] MEDS: Metoprolol Tartrate 50 MG Tablet PO SCH ×2 (09:13→20:11)
[2018-04-10] MEDS: Senna/Docusate Sodium 8.6/50 MG Tablet PO SCH ×2 (09:15→20:11)
--- NOTE | 2018-04-10 17:11 | P.PNIM ---
Subjective Interval history: Patient says he feeling all right. Denies any chest pain shortness of breath. Denies nausea or vomiting. Says it is nice to meet me Physical Exam Vital signs: Vital Signs 04/09/18 20:00 04/10/18 08:00 Temperature 98.6 F 97.4 F L Pulse Rate 92 H 87 Respiratory Rate 16 18 Blood Pressure 95/70 L 97/80 L Pulse Oximetry 100 97 Intake & Output 04/09/18 04/10/18 04/10/18 18:59 06:59 18:59 Intake Total 480 / 480 Balance 480 / 480 Weight 55.8 kg Intake: Oral 480 / 480 Other: # Voids 5 Narrative: GENERAL: Patient sleeping, wakes up for exam. Appears comfortable. Exam unchanged from yesterday. SKIN: Warm and dry. HEAD: Normocephalic. EYES: No scleral icterus. No injection or drainage. NECK: Supple, trachea midline. No JVD. CARDIOVASCULAR: Regular rate and rhythm without murmurs, gallops, or rubs. RESPIRATORY: Breath sounds equal bilaterally. No accessory muscle use. GASTROINTESTINAL: Abdomen soft, non-tender, nondistended. MUSCULOSKELETAL: No cyanosis, or edema. BACK: Nontender without obvious deformity. No CVA tenderness. Results - Labs CBC & Chem 7: 03/07/18 08:25 03/09/18 08:00 Assessment and Plan - Assessment (1) Altered mental status Code(s): R41.82 - Altered mental status, unspecified Status: Chronic Plan: - Plan = 04/10. Patient seen and examined again. Discussed with case management and nursing. Continue to work on safe discharge. No changes in medical management. //Altered mental status - The patient is a 52 year old female with past medical history which includes Abnormal LFTs, EtOH abuse, chronic back pain, COPD, hypertension, SVT. Patient was brought to [facility] on 12/13 by friend for confusion x 2 weeks weakness and flu like symptoms. Patient was admitted to [facility] from 12/13/17 to 12/18/17 treated for metabolic encephalopathy related to UTI and then DC'd to [facility]. Patient was seen in the emergency department related to altered mentation and anemia . The patient at that time was had hemoglobin of 9.3 and her rectal examination was negative for blood. She was deemed safe for discharge with follow-up as an outpatient. Patient again presented to the ER 12/25/17 for increased altered mentation since falling at her long-term at approximately 8 :15 AM 12/25. The patient has a baseline history of altered mentation that is thought to be related to her history of alcohol abuse and Wernicke's encephalopathy. Psychiatry determined that she is not competent to make her own medical decisions. - CT head negative - Cont. folic acid and thiamine - Ammonia level 15 - TSH 3.710 - RPR nonreactive - EtOH use and review of prior records patient had been drinking 1.5-2 bottles of wine a day and had been decreasing intake. Patient has recently been admitted to [facility] possibility of EtOH withdrawal causing altered mental status. - PT evaluated - Appreciate Psych evaluation. They did not feel that the patient met criteria for involuntary psychiatric admission. It was felt that the pt may benefit from comprehensive inpatient/outpatient alcohol rehabilitation program. - Supportive care - DC order placed on 12/27/17- case management working on safe DC - CM has enlisted help from Adult Protective Services. No progress has been made to obtain an accepting facility. - Psychiatry re-evaluated 01/08/18- patient does not meet inpatient psych admission criteria - 02/10/18 increase Seroquel to 100 mg PO QHS - Re-consulted psych for competency evaluation, and they declared pt not competent to make her own medical decisions. - [place] [employer] assisting with Medicaid disability application and discharge planning. //Anemia - On admission hgb 7.8, Hct 23.7, MCV 105.1 - Patient does have hx of ETOH abuse - B12 359 and folic acid 12.2 - Iron 48, total iron-binding capacity 183, percent saturation 26.2 - GI was consulted for possible EGD but unable to get consent so was recommended for outpt followup //Hypomagnesemia - replace as warranted //Tachyarrhythmia - resolved - s/p EPS with ablation of AV re-entry node tachycardia Dr. Vazquez 2016 cont current bb dose //ETOH abuse -- thiamine and folic acid - seizure precautions //COPD (chronic obstructive pulmonary disease) - duonebs if needed //HTN (hypertension) - Blood pressure was elevated during admission - continue with BB with holding parameters Discharge Planning: Discussed with case management and nursing and MDR. Continue to await safe discharge plan.
[2018-04-10] MEDS: QUEtiapine 25 MG Tablet PO SCH (20:11)
[2018-04-11] MEDS: Senna/Docusate Sodium 8.6/50 MG Tablet PO SCH ×2 (09:20→20:51)
[2018-04-11] MEDS: Metoprolol Tartrate 50 MG Tablet PO SCH ×2 (09:21→20:51)
--- NOTE | 2018-04-11 19:10 | P.PNIM ---
Subjective Interval history: patient says she is feeling all right. Says it is nice to see me again. Physical Exam Vital signs: Vital Signs 04/10/18 19:52 04/11/18 08:00 Temperature 98.2 F 98.1 F Pulse Rate 100 H 76 Respiratory Rate 18 16 Blood Pressure 126/83 90/51 L Pulse Oximetry 100 95 Intake & Output 04/11/18 04/11/18 04/12/18 06:59 18:59 06:59 Intake Total 600 / 600 Balance 600 / 600 Weight 55.7 kg Intake: Oral 600 / 600 Other: # Voids 3 Date of Last Bowel Movement 04/10/18 # Bowel Movements 0 Narrative: GENERAL: Patient sleeping, wakes up for exam. Appears comfortable. exam unchanged. SKIN: Warm and dry. HEAD: Normocephalic. EYES: No scleral icterus. No injection or drainage. NECK: Supple, trachea midline. No JVD. CARDIOVASCULAR: Regular rate and rhythm without murmurs, gallops, or rubs. RESPIRATORY: Breath sounds equal bilaterally. No accessory muscle use. GASTROINTESTINAL: Abdomen soft, non-tender, nondistended. MUSCULOSKELETAL: No cyanosis, or edema. BACK: Nontender without obvious deformity. No CVA tenderness. Results - Labs CBC & Chem 7: 03/07/18 08:25 03/09/18 08:00 Assessment and Plan - Assessment (1) Altered mental status Code(s): R41.82 - Altered mental status, unspecified Status: Chronic Plan: - Plan = 04/11. Patient seen and examined. Discussed with case management and nursing at [facility]. no changes in management. //Altered mental status - The patient is a 52 year old female with past medical history which includes Abnormal LFTs, EtOH abuse, chronic back pain, COPD, hypertension, SVT. Patient was brought to [facility] on 12/13 by friend for confusion x 2 weeks weakness and flu like symptoms. Patient was admitted to [facility] from 12/13/17 to 12/18/17 treated for metabolic encephalopathy related to UTI and then DC'd to [facility]. Patient was seen in the emergency department related to altered mentation and anemia . The patient at that time was had hemoglobin of 9.3 and her rectal examination was negative for blood. She was deemed safe for discharge with follow-up as an outpatient. Patient again presented to the ER 12/25/17 for increased altered mentation since [facility] at approximately 8 :15 AM 12/25. The patient has a baseline history of altered mentation that is thought to be related to her history of alcohol abuse and Wernicke's encephalopathy. Psychiatry determined that she is not competent to make her own medical decisions. - CT head negative - Cont. folic acid and thiamine - Ammonia level 15 - TSH 3.710 - RPR nonreactive - EtOH use and review of prior records patient had been drinking 1.5-2 bottles of wine a day and had been decreasing intake. Patient has recently been admitted to [facility] possibility of EtOH withdrawal causing altered mental status. - PT evaluated - Appreciate Psych evaluation. They did not feel that the patient met criteria for involuntary psychiatric admission. It was felt that the pt may benefit from comprehensive inpatient/outpatient alcohol rehabilitation program. - Supportive care - DC order placed on 12/27/17- case management working on safe DC - CM has enlisted help from Adult Protective Services. No progress has been made to obtain an accepting facility. - Psychiatry re-evaluated 01/08/18- patient does not meet inpatient psych admission criteria - 02/10/18 increase Seroquel to 100 mg PO QHS - Re-consulted psych for competency evaluation, and they declared pt not competent to make her own medical decisions. - [place] [employer] assisting with Medicaid disability application and discharge planning. //Anemia - On admission hgb 7.8, Hct 23.7, MCV 105.1 - Patient does have hx of ETOH abuse - B12 359 and folic acid 12.2 - Iron 48, total iron-binding capacity 183, percent saturation 26.2 - GI was consulted for possible EGD but unable to get consent so was recommended for outpt followup //Hypomagnesemia - replace as warranted //Tachyarrhythmia - resolved - s/p EPS with ablation of AV re-entry node tachycardia Dr. Vazquez 2016 cont current bb dose //ETOH abuse -- thiamine and folic acid - seizure precautions //COPD (chronic obstructive pulmonary disease) - duonebs if needed //HTN (hypertension) - Blood pressure was elevated during admission - continue with BB with holding parameters Discharge Planning: Discussed with case management and nursing and MDR. Continue to await safe discharge plan.
[2018-04-11] MEDS: QUEtiapine 25 MG Tablet PO SCH (20:50)
[2018-04-12] MEDS: Metoprolol Tartrate 50 MG Tablet PO SCH ×2 (08:00→21:14)
[2018-04-12] MEDS: Senna/Docusate Sodium 8.6/50 MG Tablet PO SCH ×2 (08:05→21:14)
--- NOTE | 2018-04-12 15:53 | P.PNIM ---
Subjective Interval history: Smells like E cigarettes in the room. Patient says she used to smoke E cigarettes but has not since she has been here. Then she says it is nice to see me again, wants to make sure she is going to stay here over the weekend. Physical Exam Vital signs: Vital Signs 04/11/18 20:00 04/12/18 08:00 Temperature 98.5 F 97.6 F Pulse Rate 88 70 Respiratory Rate 17 19 Blood Pressure 126/65 96/60 L Pulse Oximetry 97 99 Intake & Output 04/11/18 04/12/18 04/12/18 18:59 06:59 18:59 Intake Total 600 / 600 240 / 240 Balance 600 / 600 240 / 240 Weight 54.9 kg Intake: Oral 600 / 600 240 / 240 Other: # Voids 3 2 Date of Last Bowel Movement 04/10/18 04/10/18 # Bowel Movements 0 Narrative: GENERAL: Patient sleeping, wakes up for exam. Appears comfortable. exam again unchanged. SKIN: Warm and dry. HEAD: Normocephalic. EYES: No scleral icterus. No injection or drainage. NECK: Supple, trachea midline. No JVD. CARDIOVASCULAR: Regular rate and rhythm without murmurs, gallops, or rubs. RESPIRATORY: Breath sounds equal bilaterally. No accessory muscle use. GASTROINTESTINAL: Abdomen soft, non-tender, nondistended. MUSCULOSKELETAL: No cyanosis, or edema. BACK: Nontender without obvious deformity. No CVA tenderness. Results - Labs CBC & Chem 7: 03/07/18 08:25 03/09/18 08:00 Assessment and Plan - Assessment (1) Altered mental status Code(s): R41.82 - Altered mental status, unspecified Status: Chronic Plan: - Plan = 04/12. Patient seen and examined. Discussed with case management and nursing at [facility]. no changes in management. //Altered mental status - The patient is a 52 year old female with past medical history which includes Abnormal LFTs, EtOH abuse, chronic back pain, COPD, hypertension, SVT. Patient was brought to [facility] on 12/13 by friend for confusion x 2 weeks weakness and flu like symptoms. Patient was admitted to [facility] from 12/13/17 to 12/18/17 treated for metabolic encephalopathy related to UTI and then DC'd to [facility]. Patient was seen in the emergency department related to altered mentation and anemia . The patient at that time was had hemoglobin of 9.3 and her rectal examination was negative for blood. She was deemed safe for discharge with follow-up as an outpatient. Patient again presented to the ER 12/25/17 for increased altered mentation since falling at her group home at approximately 8 :15 AM 12/25. The patient has a baseline history of altered mentation that is thought to be related to her history of alcohol abuse and Wernicke's encephalopathy. Psychiatry determined that she is not competent to make her own medical decisions. - CT head negative - Cont. folic acid and thiamine - Ammonia level 15 - TSH 3.710 - RPR nonreactive - EtOH use and review of prior records patient had been drinking 1.5-2 bottles of wine a day and had been decreasing intake. Patient has recently been admitted to [facility] possibility of EtOH withdrawal causing altered mental status. - PT evaluated - Appreciate Psych evaluation. They did not feel that the patient met criteria for involuntary psychiatric admission. It was felt that the pt may benefit from comprehensive inpatient/outpatient alcohol rehabilitation program. - Supportive care - DC order placed on 12/27/17- case management working on safe DC - CM has enlisted help from Adult Protective Services. No progress has been made to obtain an accepting facility. - Psychiatry re-evaluated 01/08/18- patient does not meet inpatient psych admission criteria - 02/10/18 increase Seroquel to 100 mg PO QHS - Re-consulted psych for competency evaluation, and they declared pt not competent to make her own medical decisions. - [place] [employer] assisting with Medicaid disability application and discharge planning. //Anemia - On admission hgb 7.8, Hct 23.7, MCV 105.1 - Patient does have hx of ETOH abuse - B12 359 and folic acid 12.2 - Iron 48, total iron-binding capacity 183, percent saturation 26.2 - GI was consulted for possible EGD but unable to get consent so was recommended for outpt followup //Hypomagnesemia - replace as warranted //Tachyarrhythmia - resolved - s/p EPS with ablation of AV re-entry node tachycardia Dr. Vazquez 2016 cont current bb dose //ETOH abuse -- thiamine and folic acid - seizure precautions //COPD (chronic obstructive pulmonary disease) - duonebs if needed //HTN (hypertension) - Blood pressure was elevated during admission - continue with BB with holding parameters Discharge Planning: Discussed with case management and nursing and MDR. Continue to await safe discharge plan.
[2018-04-12] MEDS: QUEtiapine 25 MG Tablet PO SCH (21:13)
[2018-04-13] MEDS: Senna/Docusate Sodium 8.6/50 MG Tablet PO SCH ×2 (11:52→20:53)
[2018-04-13] MEDS: Metoprolol Tartrate 50 MG Tablet PO SCH ×2 (11:52→20:52)
--- NOTE | 2018-04-13 15:34 | P.PNIM ---
Subjective Interval history: Patient says she is feeling right. Denies any chest pain shortness of breath. Physical Exam Vital signs: Vital Signs 04/12/18 20:00 04/13/18 08:00 Temperature 98.7 F 98.2 F Pulse Rate 76 67 Respiratory Rate 15 20 Blood Pressure 118/65 112/62 Pulse Oximetry 95 99 Intake & Output 04/12/18 04/13/18 04/13/18 18:59 06:59 18:59 Intake Total 240 / 240 Balance 240 / 240 Weight 57.9 kg Intake: Oral 240 / 240 Other: # Voids 2 Date of Last Bowel Movement 04/10/18 Narrative: GENERAL: Awake, alert. Oriented to place. SKIN: Warm and dry. HEAD: Normocephalic. EYES: No scleral icterus. No injection or drainage. NECK: Supple, trachea midline. No JVD. CARDIOVASCULAR: Regular rate and rhythm without murmurs, gallops, or rubs. RESPIRATORY: Breath sounds equal bilaterally. No accessory muscle use. GASTROINTESTINAL: Abdomen soft, non-tender, nondistended. MUSCULOSKELETAL: No cyanosis, or edema. BACK: Nontender without obvious deformity. No CVA tenderness. Results - Labs CBC & Chem 7: 03/07/18 08:25 03/09/18 08:00 Assessment and Plan - Assessment (1) Altered mental status Code(s): R41.82 - Altered mental status, unspecified Status: Chronic Plan: - Plan 04/13. Patient seen and examined again. No bowel movement recorded in several days. Order laxative. There is an odor of the e-cigarette use, and room will be search by nursing. Appreciate assistance. No other changes in management. = 04/12. Patient seen and examined. Discussed with case management and nursing at [facility]. no changes in management. //Altered mental status - The patient is a 52 year old female with past medical history which includes Abnormal LFTs, EtOH abuse, chronic back pain, COPD, hypertension, SVT. Patient was brought to [facility] on 12/13 by friend for confusion x 2 weeks weakness and flu like symptoms. Patient was admitted to [facility] from 12/13/17 to 12/18/17 treated for metabolic encephalopathy related to UTI and then DC'd to [facility]. Patient was seen in the emergency department related to altered mentation and anemia . The patient at that time was had hemoglobin of 9.3 and her rectal examination was negative for blood. She was deemed safe for discharge with follow-up as an outpatient. Patient again presented to the ER 12/25/17 for increased altered mentation since falling at her [facility] at approximately 8 :15 AM 12/25. The patient has a baseline history of altered mentation that is thought to be related to her history of alcohol abuse and Wernicke's encephalopathy. Psychiatry determined that she is not competent to make her own medical decisions. - CT head negative - Cont. folic acid and thiamine - Ammonia level 15 - TSH 3.710 - RPR nonreactive - EtOH use and review of prior records patient had been drinking 1.5-2 bottles of wine a day and had been decreasing intake. Patient has recently been admitted to [facility] possibility of EtOH withdrawal causing altered mental status. - PT evaluated - Appreciate Psych evaluation. They did not feel that the patient met criteria for involuntary psychiatric admission. It was felt that the pt may benefit from comprehensive inpatient/outpatient alcohol rehabilitation program. - Supportive care - DC order placed on 12/27/17- case management working on safe DC - CM has enlisted help from Adult Protective Services. No progress has been made to obtain an accepting facility. - Psychiatry re-evaluated 01/08/18- patient does not meet inpatient psych admission criteria - 02/10/18 increase Seroquel to 100 mg PO QHS - Re-consulted psych for competency evaluation, and they declared pt not competent to make her own medical decisions. - [place] [employer] assisting with Medicaid disability application and discharge planning. //Anemia - On admission hgb 7.8, Hct 23.7, MCV 105.1 - Patient does have hx of ETOH abuse - B12 359 and folic acid 12.2 - Iron 48, total iron-binding capacity 183, percent saturation 26.2 - GI was consulted for possible EGD but unable to get consent so was recommended for outpt followup //Hypomagnesemia - replace as warranted //Tachyarrhythmia - resolved - s/p EPS with ablation of AV re-entry node tachycardia Dr. Vazquez 2016 cont current bb dose //ETOH abuse -- thiamine and folic acid - seizure precautions //COPD (chronic obstructive pulmonary disease) - duonebs if needed //HTN (hypertension) - Blood pressure was elevated during admission - continue with BB with holding parameters Discharge Planning: Discussed with case management and nursing and MDR. Continue to await safe discharge plan.
[2018-04-13] MEDS: QUEtiapine 25 MG Tablet PO SCH (20:52)
--- NOTE | 2018-04-14 08:50 | P.PNIM ---
Subjective Interval history: Patient sleeping, wakes up for exam. Denies any chest pain or shortness of breath. She is feeling well. Physical Exam Vital signs: Vital Signs 04/13/18 20:00 Temperature 97.9 F Pulse Rate 82 Respiratory Rate 20 Blood Pressure 117/71 Pulse Oximetry 99 Intake & Output 04/13/18 04/14/18 04/14/18 18:59 06:59 18:59 Intake Total 720 / 720 480 / 480 Balance 720 / 720 480 / 480 Weight 57.9 kg Intake: Oral 720 / 720 480 / 480 Other: # Voids 3 1 Date of Last Bowel Movement 04/10/18 Narrative: GENERAL: Sleeping, wakes up for exam. Awake, alert. Oriented to place. No change on exam. SKIN: Warm and dry. HEAD: Normocephalic. EYES: No scleral icterus. No injection or drainage. NECK: Supple, trachea midline. No JVD. CARDIOVASCULAR: Regular rate and rhythm without murmurs, gallops, or rubs. RESPIRATORY: Breath sounds equal bilaterally. No accessory muscle use. GASTROINTESTINAL: Abdomen soft, non-tender, nondistended. MUSCULOSKELETAL: No cyanosis, or edema. BACK: Nontender without obvious deformity. No CVA tenderness. Results - Labs CBC & Chem 7: 03/07/18 08:25 03/09/18 08:00 Assessment and Plan - Assessment (1) Altered mental status Code(s): R41.82 - Altered mental status, unspecified Status: Chronic Plan: - Plan 04/14. Patient seen and examined again. No changes in management. Last bowel movement 04/10. Follow-up Dr. Blank evaluation. //Altered mental status - The patient is a 52 year old female with past medical history which includes Abnormal LFTs, EtOH abuse, chronic back pain, COPD, hypertension, SVT. Patient was brought to [facility] on 12/13 by friend for confusion x 2 weeks weakness and flu like symptoms. Patient was admitted to [facility] from 12/13/17 to 12/18/17 treated for metabolic encephalopathy related to UTI and then DC'd to [facility]. Patient was seen in the emergency department related to altered mentation and anemia . The patient at that time was had hemoglobin of 9.3 and her rectal examination was negative for blood. She was deemed safe for discharge with follow-up as an outpatient. Patient again presented to the ER 12/25/17 for increased altered mentation since falling at her [facility] at approximately 8 :15 AM 12/25. The patient has a baseline history of altered mentation that is thought to be related to her history of alcohol abuse and Wernicke's encephalopathy. Psychiatry determined that she is not competent to make her own medical decisions. - CT head negative - Cont. folic acid and thiamine - Ammonia level 15 - TSH 3.710 - RPR nonreactive - EtOH use and review of prior records patient had been drinking 1.5-2 bottles of wine a day and had been decreasing intake. Patient has recently been admitted to [facility] possibility of EtOH withdrawal causing altered mental status. - PT evaluated - Appreciate Psych evaluation. They did not feel that the patient met criteria for involuntary psychiatric admission. It was felt that the pt may benefit from comprehensive inpatient/outpatient alcohol rehabilitation program. - Supportive care - DC order placed on 12/27/17- case management working on safe DC - CM has enlisted help from Adult Protective Services. No progress has been made to obtain an accepting facility. - Psychiatry re-evaluated 01/08/18- patient does not meet inpatient psych admission criteria - 02/10/18 increase Seroquel to 100 mg PO QHS - Re-consulted psych for competency evaluation, and they declared pt not competent to make her own medical decisions. - [place] [employer] assisting with Medicaid disability application and discharge planning. //Anemia - On admission hgb 7.8, Hct 23.7, MCV 105.1 - Patient does have hx of ETOH abuse - B12 359 and folic acid 12.2 - Iron 48, total iron-binding capacity 183, percent saturation 26.2 - GI was consulted for possible EGD but unable to get consent so was recommended for outpt followup //Hypomagnesemia - replace as warranted //Tachyarrhythmia - resolved - s/p EPS with ablation of AV re-entry node tachycardia Dr. Vazquez 2016 cont current bb dose //ETOH abuse -- thiamine and folic acid - seizure precautions //COPD (chronic obstructive pulmonary disease) - duonebs if needed //HTN (hypertension) - Blood pressure was elevated during admission - continue with BB with holding parameters Discharge Planning: Discussed with case management and nursing and MDR. Continue to await safe discharge plan.
[2018-04-14] MEDS: Metoprolol Tartrate 50 MG Tablet PO SCH ×2 (09:00→20:36)
[2018-04-14] MEDS: Senna/Docusate Sodium 8.6/50 MG Tablet PO SCH ×2 (10:20→20:36)
[2018-04-14] MEDS: QUEtiapine 25 MG Tablet PO SCH (20:36)
--- NOTE | 2018-04-15 09:35 | P.PNIM ---
Subjective Interval history: Patient sleeping, wakes of her exam. Denies any chest pain shortness of breath. Feeling well. Physical Exam Vital signs: Intake & Output 04/14/18 04/15/18 04/15/18 18:59 06:59 18:59 Intake Total 360 / 360 Balance 360 / 360 Weight 60.2 kg Intake: Oral 360 / 360 Other: # Voids 2 Date of Last Bowel Movement 04/10/18 # Bowel Movements 0 Narrative: GENERAL: Sleeping, wakes up for exam. Awake, alert. Oriented to place. Again , no change on exam. SKIN: Warm and dry. HEAD: Normocephalic. EYES: No scleral icterus. No injection or drainage. NECK: Supple, trachea midline. No JVD. CARDIOVASCULAR: Regular rate and rhythm without murmurs, gallops, or rubs. RESPIRATORY: Breath sounds equal bilaterally. No accessory muscle use. GASTROINTESTINAL: Abdomen soft, non-tender, nondistended. MUSCULOSKELETAL: No cyanosis, or edema. BACK: Nontender without obvious deformity. No CVA tenderness. Results - Labs CBC & Chem 7: 03/07/18 08:25 03/09/18 08:00 Assessment and Plan - Assessment (1) Altered mental status Code(s): R41.82 - Altered mental status, unspecified Status: Chronic Plan: - Plan 04/15. Patient seen and examined again. No changes in management. Last bowel movement 04/10. Follow-up Dr. Blank evaluation. //Altered mental status - The patient is a 52 year old female with past medical history which includes Abnormal LFTs, EtOH abuse, chronic back pain, COPD, hypertension, SVT. Patient was brought to [facility] on 12/13 by friend for confusion x 2 weeks weakness and flu like symptoms. Patient was admitted to [facility] from 12/13/17 to 12/18/17 treated for metabolic encephalopathy related to UTI and then DC'd to [facility]. Patient was seen in the emergency department related to altered mentation and anemia . The patient at that time was had hemoglobin of 9.3 and her rectal examination was negative for blood. She was deemed safe for discharge with follow-up as an outpatient. Patient again presented to the ER 12/25/17 for increased altered mentation since falling [facility] her [facility] at approximately 8 :15 AM 12/25. The patient has a baseline history of altered mentation that is thought to be related to her history of alcohol abuse and Wernicke's encephalopathy. Psychiatry determined that she is not competent to make her own medical decisions. - CT head negative - Cont. folic acid and thiamine - Ammonia level 15 - TSH 3.710 - RPR nonreactive - EtOH use and review of prior records patient had been drinking 1.5-2 bottles of wine a day and had been decreasing intake. Patient has recently been admitted to [facility] possibility of EtOH withdrawal causing altered mental status. - PT evaluated - Appreciate Psych evaluation. They did not feel that the patient met criteria for involuntary psychiatric admission. It was felt that the pt may benefit from comprehensive inpatient/outpatient alcohol rehabilitation program. - Supportive care - DC order placed on 12/27/17- case management working on safe DC - CM has enlisted help from Adult Protective Services. No progress has been made to obtain an accepting facility. - Psychiatry re-evaluated 01/08/18- patient does not meet inpatient psych admission criteria - 02/10/18 increase Seroquel to 100 mg PO QHS - Re-consulted psych for competency evaluation, and they declared pt not competent to make her own medical decisions. - [place] [employer] assisting with Medicaid disability application and discharge planning. //Anemia - On admission hgb 7.8, Hct 23.7, MCV 105.1 - Patient does have hx of ETOH abuse - B12 359 and folic acid 12.2 - Iron 48, total iron-binding capacity 183, percent saturation 26.2 - GI was consulted for possible EGD but unable to get consent so was recommended for outpt followup //Hypomagnesemia - replace as warranted //Tachyarrhythmia - resolved - s/p EPS with ablation of AV re-entry node tachycardia Dr. Vazquez 2017 cont current bb dose //ETOH abuse -- thiamine and folic acid - seizure precautions //COPD (chronic obstructive pulmonary disease) - duonebs if needed //HTN (hypertension) - Blood pressure was elevated during admission - continue with BB with holding parameters Discharge Planning: Discussed with case management and nursing and MDR. Continue to await safe discharge plan.
[2018-04-15] MEDS: Metoprolol Tartrate 50 MG Tablet PO SCH ×2 (10:24→21:32)
[2018-04-15] MEDS: Senna/Docusate Sodium 8.6/50 MG Tablet PO SCH ×2 (10:24→21:32)
--- NOTE | 2018-04-15 11:53 | P.NPEVAL ---
Disclaimer Patient was given an explanation of the nature and purpose of the evaluation. Patient agreed to proceed with the evaluation and treatment plan. History - Reason for Referral The patient is a 52 year old right handed woman who initially was admitted on 05/2018 for metabolic encephalopathy and returned to a SNF, but then presented to the ED formental status changes and anemia on 12/24/2017 and again on 2017. This patient has a history of alcohol dependence, elevated LFTs, low back pain and COPD. Her LFTs are now normal, but her renal values are elevated. She is presently behaviorally managed on Seroquel 100 HS. 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 In fact, other than these details, she was an exceptionally poor historian. She is referred for baseline neuropsychological evaluation to assess cognitive, behavioral and emotional aspects of her medical condition and to provide treatment recommendations. - Additional Psychosocial History Hx Substance Use: Yes Education Level: >12 Years Hand Dominance: Right Medications Active Medications Acetaminophen (Tylenol) 650 mg PO Q4H PRN PRN Reason: TEMP > 100.4 Al Hydroxide/Mg Hydroxide (Milk Of [place] Liq) 30 ml PO Q12H PRN PRN Reason: MILD CONSTIPATION Albuterol (Duoneb Neb (Prn)) 1 ampul NEB Q2HR NEB PRN PRN Reason: SOB/WHEEZING Bisacodyl (Dulcolax Supp) 10 mg RECTAL DAILY PRN PRN Reason: SEVERE CONSTIPATION Flumazenil (Romazecon Inj) 0.2 mg IV.PUSH Q1M PRN PRN Reason: SEE LABEL COMMENTS Haloperidol Lactate (Haldol Inj) 5 mg IM Q8H PRN PRN Reason: AGGRESSIVE BEHAVIOR &AGITATION Lactulose (Lactulose Liq) 30 ml PO DAILY PRN PRN Reason: SEVERE CONSTIPATION Lorazepam (Ativan) 0.5 mg PO Q8HR PRN PRN Reason: ANXIETY AND/OR AGITATION Last Admin: 04/04/18 21:13 Dose: 0.5 mg Lorazepam (Ativan Inj) 0.5 mg IV.PUSH Q6H PRN PRN Reason: AGITATION/AGGRESSION Metoprolol Tartrate (Lopressor) 25 mg PO Q12HR JAVIER Last Admin: 04/15/18 10:24 Dose: Not Given Naloxone HCl (Narcan Inj) 0.4 mg IV.PUSH UNSCH PRN PRN Reason: SEE LABEL COMMENTS Pantoprazole Sodium (Protonix) 40 mg PO DAILY [facility] Last Admin: 04/15/18 10:24 Dose: 40 mg Quetiapine Fumarate (Seroquel) 100 mg PO HS [facility] Last Admin: 04/14/18 20:36 Dose: 100 mg Senna/Docusate Sodium (Kristy-Colace) 1 tab PO BID [facility] Last Admin: 04/15/18 10:24 Dose: 1 tab Sennosides (Senokot) 17.2 mg PO Q12H PRN PRN Reason: MODERATE CONSTIPATION Thiamine HCl (Vitamin B1) 100 mg PO DAILY [facility] Last Admin: 04/15/18 10:24 Dose: 100 mg Mental Status Assessment - Mental Status Orientation: oriented to: Self, disoriented to: Place, Time, Situation Mental Status: WFL: Thought processing, Language/interactions, Attention, Problem-solving, Visuospatial/construction, Impaired: Learning/memory Absent: Hallucinations, Delusions Adjustment/Coping Assessment - Adjustment/Coping Adjustment/Coping: Severe: Awareness, Insight, Not Assessed: Depression Affect: Full range - Observation In terms of emotional functioning, the patient demonstrated challenges. This patient demonstrated no signs of agitation, impulsivity or disinhibition, nor was there remarkable evidence of a formal thought disorder or psychosis. There was questionable evidence of depression or anxiety. The Geriatric Depression Scale-Short Form was administered given the ease to which it is administered to persons with known neurological pathology, and the patient endorsed 6 of 15 symptoms, which falls within the mildly depressed range. However, it is noted that her responses were no internally consistent, with calls into question the validity of her self-report. Thought content was free from suicidal, homicidal or paranoid ideation, and thought processes were tangential and somewhat perseverative. The patients mood was indifferent but overall euthymic, and her affect was stable and appropriate. The patient appears to possess minimal insight and awareness into their situation and within the limits of this brief evaluation, poor judgment. Effort Effort: Average Cognition Assessment - Attention/Processing Speed Rating: WFL: Attention/processing, Language, Visual perception, Spatial judgment , Impaired: Immediate & delayed memory, Awareness - insight adjustment Observation: The patient was alert and oriented to person only. She was not oriented to place , time or circumstances surrounding the recent hospitalization. The Mini-Mental State Exam was administered, and the patient obtained a score of 22 out of 30 points, which falls in the impaired range. However, on further evaluation, specific deficits were identified. In terms of attention skills, the patient exhibited relatively normal abilities. The patient was able to remain on task and remember basic and complex verbal instructions. The patient was able to spell the word WORLD backwards, complete oral arithmetic problems and recite word lists after one trial. In terms of memory functioning, the patient exhibited profound challenges. The patients initial registration of verbal information was normal, and the patient was only minimally able to improve her memory with repetition. After a period of delay, the patient was unable to recall any this information from memory. More specifically, on the Luria Memory Words Test-Short Form, the patients trial one performance was 3 of 7 words, trial five performance was 6 of 7 words, the patients Total Learning score was 25 (at cut-off), and the patients Delayed recall score was 0 of 7 words (profoundly below cut-off). The patients ability to recall verbal information in a paragraph format was considerably abnormal, as she was unable to recall any of this information after a brief delay, and recognition cues did not help her. In terms of speech and language skills, the patient demonstrated normal abilities. The patients initiated spontaneous conversation throughout the assessment. Speech was characterized by adequate prosody, grammar, articulation, volume and rate. No remarkable dysnomic or paraphasic errors were noted either during conversational speech or on confrontation naming tasks. Reading recognition skills were adequate, as were writing skills. She earned a standard score of 90 (percentile rank of 25%). The patients comprehension for basic one- and two-stage commands was normal. In terms of problem-solving skills, the patient exhibited normal abilities except in regard to her lack of insight, awareness and judgment. The patients ability to understand abstraction reasoning was normal, as reflected in her ability to abstract essential shared characteristics of objects and concepts. Mathematical reasoning skills were also normal. Speed of information processing , as evaluated by both the Letter and Category Fluency Tests was normal. Finally, there was no evidence of ideomotor apraxia or constructional difficulties during this brief evaluation. 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 Otherwise, her sustained attention, language skills, abstraction, calculation and processing speed skills were normal. Emotionally, she demonstrates an indifference to her situation, and her depression self-report is not internally consistent,. She lacks insight, awareness and judgment. 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 Recommendations Recommendations: This patient lacks the cognitive decision making capacity to make decisions of a legal, financial and medical nature. She demonstrates the impaired ability to appreciate a situation and its likely consequences, and her dense memory disorder interferes with her ability to manipulate information rationally. She will require a structured living situation on discharge, as she will decompensate in a less structured setting. Complete abstinence from alcohol going forward is an absolute necessity.
[2018-04-15] MEDS: QUEtiapine 25 MG Tablet PO SCH (21:32)
[2018-04-16] MEDS: Metoprolol Tartrate 50 MG Tablet PO SCH ×2 (11:11→21:10)
[2018-04-16] MEDS: Senna/Docusate Sodium 8.6/50 MG Tablet PO SCH ×2 (11:11→21:09)
--- NOTE | 2018-04-16 18:42 | P.PNIM ---
Subjective Interval history: patient says she is feeling all right. Denies any chest pain or shortness of breath. No acute changes per nursing. patient asked if she can leave this for a few days to see her family. SH she cannot because her memory is not very good. She says we may see her memory start to improve in the next few days. Physical Exam Vital signs: Vital Signs 04/15/18 20:00 04/16/18 08:00 Temperature 98.1 F 97.7 F Pulse Rate 108 H 75 Respiratory Rate 18 18 Blood Pressure 116/86 112/67 Pulse Oximetry 99 96 Intake & Output 04/15/18 04/16/18 04/16/18 18:59 06:59 18:59 Intake Total 240 / 240 360 / 360 Balance 240 / 240 360 / 360 Weight 55.3 kg Intake: Oral 240 / 240 360 / 360 Other: # Voids 2 2 Date of Last Bowel Movement 04/10/18 # Bowel Movements 1 Narrative: GENERAL: Sleeping, wakes up for exam. Awake, alert. Oriented to place. Again , no change on exam. SKIN: Warm and dry. HEAD: Normocephalic. EYES: No scleral icterus. No injection or drainage. NECK: Supple, trachea midline. No JVD. CARDIOVASCULAR: Regular rate and rhythm without murmurs, gallops, or rubs. RESPIRATORY: Breath sounds equal bilaterally. No accessory muscle use. GASTROINTESTINAL: Abdomen soft, non-tender, nondistended. MUSCULOSKELETAL: No cyanosis, or edema. BACK: Nontender without obvious deformity. No CVA tenderness. Results - Labs CBC & Chem 7: 03/07/18 08:25 03/09/18 08:00 Assessment and Plan - Assessment (1) Altered mental status Code(s): R41.82 - Altered mental status, unspecified Status: Chronic Plan: - Plan 04/16. Patient seen and examined again. no changes in management. Appreciate neuropsychology evaluation. //Altered mental status - The patient is a 52 year old female with past medical history which includes Abnormal LFTs, EtOH abuse, chronic back pain, COPD, hypertension, SVT. Patient was brought to [facility] on 12/13 by friend for confusion x 2 weeks weakness and flu like symptoms. Patient was admitted to [facility] from 12/13/17 to 12/18/17 treated for metabolic encephalopathy related to UTI and then DC'd to [facility]. Patient was seen in the emergency department related to altered mentation and anemia . The patient at that time was had hemoglobin of 9.3 and her rectal examination was negative for blood. She was deemed safe for discharge with follow-up as an outpatient. Patient again presented to the ER 12/25/17 for increased altered mentation since falling at her [facility] at approximately 8 :15 AM 12/25. The patient has a baseline history of altered mentation that is thought to be related to her history of alcohol abuse and Wernicke's encephalopathy. Psychiatry determined that she is not competent to make her own medical decisions. - CT head negative - Cont. folic acid and thiamine - Ammonia level 15 - TSH 3.710 - RPR nonreactive - EtOH use and review of prior records patient had been drinking 1.5-2 bottles of wine a day and had been decreasing intake. Patient has recently been admitted to [facility] possibility of EtOH withdrawal causing altered mental status. - PT evaluated - Appreciate Psych evaluation. They did not feel that the patient met criteria for involuntary psychiatric admission. It was felt that the pt may benefit from comprehensive inpatient/outpatient alcohol rehabilitation program. - Supportive care - DC order placed on 12/27/17- case management working on safe DC - CM has enlisted help from Adult Protective Services. No progress has been made to obtain an accepting facility. - Psychiatry re-evaluated 01/08/18- patient does not meet inpatient psych admission criteria - 02/10/18 increase Seroquel to 100 mg PO QHS - Re-consulted psych for competency evaluation, and they declared pt not competent to make her own medical decisions. - [place] [employer] assisting with Medicaid disability application and discharge planning. //Anemia - On admission hgb 7.8, Hct 23.7, MCV 105.1 - Patient does have hx of ETOH abuse - B12 359 and folic acid 12.2 - Iron 48, total iron-binding capacity 183, percent saturation 26.2 - GI was consulted for possible EGD but unable to get consent so was recommended for outpt followup //Hypomagnesemia - replace as warranted //Tachyarrhythmia - resolved - s/p EPS with ablation of AV re-entry node tachycardia Dr. Vazquez 2016 cont current bb dose //ETOH abuse -- thiamine and folic acid - seizure precautions //COPD (chronic obstructive pulmonary disease) - duonebs if needed //HTN (hypertension) - Blood pressure was elevated during admission - continue with BB with holding parameters Discharge Planning: Discussed with case management and nursing and MDR. Continue to await safe discharge plan.
[2018-04-16] MEDS: QUEtiapine 25 MG Tablet PO SCH (21:09)
[2018-04-17] MEDS: Senna/Docusate Sodium 8.6/50 MG Tablet PO SCH ×2 (09:00→21:00)
[2018-04-17] MEDS: Metoprolol Tartrate 50 MG Tablet PO SCH ×2 (09:00→21:00)
--- NOTE | 2018-04-17 10:02 | P.PNIM ---
Subjective Interval history: Says she is feeling right. Denies any chest pain shortness of breath. Denies nausea vomiting. Physical Exam Vital signs: Vital Signs 04/16/18 20:00 04/17/18 08:00 Temperature 98.1 F 97.8 F Pulse Rate 86 66 Respiratory Rate 15 18 Blood Pressure 115/71 105/56 L Pulse Oximetry 94 L 95 Intake & Output 04/16/18 04/17/18 04/17/18 18:59 06:59 18:59 Intake Total 360 / 360 420 / 420 Balance 360 / 360 420 / 420 Weight 57 kg Intake: Oral 360 / 360 420 / 420 Other: # Voids 2 4 Narrative: GENERAL: Sleeping, wakes up for exam. Awake, alert. Oriented to place. no change on exam. SKIN: Warm and dry. HEAD: Normocephalic. EYES: No scleral icterus. No injection or drainage. NECK: Supple, trachea midline. No JVD. CARDIOVASCULAR: Regular rate and rhythm without murmurs, gallops, or rubs. RESPIRATORY: Breath sounds equal bilaterally. No accessory muscle use. GASTROINTESTINAL: Abdomen soft, non-tender, nondistended. MUSCULOSKELETAL: No cyanosis, or edema. BACK: Nontender without obvious deformity. No CVA tenderness. Results - Labs CBC & Chem 7: 03/07/18 08:25 03/09/18 08:00 Assessment and Plan - Assessment (1) Altered mental status Code(s): R41.82 - Altered mental status, unspecified Status: Chronic Plan: - Plan 04/17. Patient seen and examined. no changes in management. //Altered mental status - The patient is a 52 year old female with past medical history which includes Abnormal LFTs, EtOH abuse, chronic back pain, COPD, hypertension, SVT. Patient was brought to [facility] on 12/13 by friend for confusion x 2 weeks weakness and flu like symptoms. Patient was admitted to [facility] from 12/13/17 to 12/18/17 treated for metabolic encephalopathy related to UTI and then DC'd to [facility]. Patient was seen in the emergency department related to altered mentation and anemia . The patient at that time was had hemoglobin of 9.3 and her rectal examination was negative for blood. She was deemed safe for discharge with follow-up as an outpatient. Patient again presented to the ER 5/22/18 for increased altered mentation since falling at her half-way at approximately 8 :15 AM 12/25. The patient has a baseline history of altered mentation that is thought to be related to her history of alcohol abuse and Wernicke's encephalopathy. Psychiatry determined that she is not competent to make her own medical decisions. - CT head negative - Cont. folic acid and thiamine - Ammonia level 15 - TSH 3.710 - RPR nonreactive - EtOH use and review of prior records patient had been drinking 1.5-2 bottles of wine a day and had been decreasing intake. Patient has recently been admitted to [facility] possibility of EtOH withdrawal causing altered mental status. - PT evaluated - Appreciate Psych evaluation. They did not feel that the patient met criteria for involuntary psychiatric admission. It was felt that the pt may benefit from comprehensive inpatient/outpatient alcohol rehabilitation program. - Supportive care - DC order placed on 12/27/17- case management working on safe DC - CM has enlisted help from Adult Protective Services. No progress has been made to obtain an accepting facility. - Psychiatry re-evaluated 01/08/18- patient does not meet inpatient psych admission criteria - 02/10/18 increase Seroquel to 100 mg PO QHS - Re-consulted psych as well as neuropsychology for competency evaluation, and they declared pt not competent to make her own medical decisions. - [place] [employer] assisting with Medicaid disability application and discharge planning. //Anemia - On admission hgb 7.8, Hct 23.7, MCV 105.1 - Patient does have hx of ETOH abuse - B12 359 and folic acid 12.2 - Iron 48, total iron-binding capacity 183, percent saturation 26.2 - GI was consulted for possible EGD but unable to get consent so was recommended for outpt followup //Hypomagnesemia - replace as warranted //Tachyarrhythmia - resolved - s/p EPS with ablation of AV re-entry node tachycardia Dr. Vazquez 2016 cont current bb dose //ETOH abuse -- thiamine and folic acid - seizure precautions //COPD (chronic obstructive pulmonary disease) - duonebs if needed //HTN (hypertension) - Blood pressure was elevated during admission - continue with BB with holding parameters Discharge Planning: Discussed with case management and nursing and MDR. Continue to await safe discharge plan.
[2018-04-17] MEDS: QUEtiapine 25 MG Tablet PO SCH (21:00)
[2018-04-18] MEDS: Metoprolol Tartrate 50 MG Tablet PO SCH ×2 (10:23→21:36)
[2018-04-18] MEDS: Senna/Docusate Sodium 8.6/50 MG Tablet PO SCH ×2 (10:23→21:36)
--- NOTE | 2018-04-18 14:19 | P.PNIM ---
Subjective Interval history: Patient remembered my name today. Denies any chest pain or shortness of breath. Says she feels well. Physical Exam Vital signs: Vital Signs 04/17/18 20:00 04/18/18 12:00 Temperature 98.4 F 97.6 F Pulse Rate 91 H 82 Respiratory Rate 17 20 Blood Pressure 109/74 96/72 L Pulse Oximetry 99 99 Intake & Output 04/17/18 04/18/18 04/18/18 18:59 06:59 18:59 Intake Total 480 / 480 Balance 480 / 480 Weight 56.7 kg Intake: Oral 480 / 480 Other: # Voids 2 Narrative: GENERAL: Sleeping, wakes up for exam. Awake, alert. Oriented to place. Remembers my name. No other changes. SKIN: Warm and dry. HEAD: Normocephalic. EYES: No scleral icterus. No injection or drainage. NECK: Supple, trachea midline. No JVD. CARDIOVASCULAR: Regular rate and rhythm without murmurs, gallops, or rubs. RESPIRATORY: Breath sounds equal bilaterally. No accessory muscle use. GASTROINTESTINAL: Abdomen soft, non-tender, nondistended. MUSCULOSKELETAL: No cyanosis, or edema. BACK: Nontender without obvious deformity. No CVA tenderness. Results - Labs CBC & Chem 7: 03/07/18 08:25 03/09/18 08:00 Assessment and Plan - Assessment (1) Altered mental status Code(s): R41.82 - Altered mental status, unspecified Status: Chronic Plan: - Plan 04/18. Patient seen and examined. Reviewed my name, however no changes in management. //Altered mental status - The patient is a 52 year old female with past medical history which includes Abnormal LFTs, EtOH abuse, chronic back pain, COPD, hypertension, SVT. Patient was brought to [facility] on 12/13 by friend for confusion x 2 weeks weakness and flu like symptoms. Patient was admitted to [facility] from 12/13/17 to 12/18/17 treated for metabolic encephalopathy related to UTI and then DC'd to [facility]. Patient was seen in the emergency department related to altered mentation and anemia . The patient at that time was had hemoglobin of 9.3 and her rectal examination was negative for blood. She was deemed safe for discharge with follow-up as an outpatient. Patient again presented to the ER 12/25/17 for increased altered mentation since falling at her detention at approximately 8 :15 AM 12/25. The patient has a baseline history of altered mentation that is thought to be related to her history of alcohol abuse and Wernicke's encephalopathy. Psychiatry determined that she is not competent to make her own medical decisions. - CT head negative - Cont. folic acid and thiamine - Ammonia level 15 - TSH 3.710 - RPR nonreactive - EtOH use and review of prior records patient had been drinking 1.5-2 bottles of wine a day and had been decreasing intake. Patient has recently been admitted to [facility] possibility of EtOH withdrawal causing altered mental status. - PT evaluated - Appreciate Psych evaluation. They did not feel that the patient met criteria for involuntary psychiatric admission. It was felt that the pt may benefit from comprehensive inpatient/outpatient alcohol rehabilitation program. - Supportive care - DC order placed on 12/27/17- case management working on safe DC - CM has enlisted help from Adult Protective Services. No progress has been made to obtain an accepting facility. - Psychiatry re-evaluated 01/08/18- patient does not meet inpatient psych admission criteria - 02/10/18 increase Seroquel to 100 mg PO QHS - Re-consulted psych as well as neuropsychology for competency evaluation, and they declared pt not competent to make her own medical decisions. - [place] [employer] assisting with Medicaid disability application and discharge planning. //Anemia - On admission hgb 7.8, Hct 23.7, MCV 105.1 - Patient does have hx of ETOH abuse - B12 359 and folic acid 12.2 - Iron 48, total iron-binding capacity 183, percent saturation 26.2 - GI was consulted for possible EGD but unable to get consent so was recommended for outpt followup //Hypomagnesemia - replace as warranted //Tachyarrhythmia - resolved - s/p EPS with ablation of AV re-entry node tachycardia Dr. Vazquez 2016 cont current bb dose //ETOH abuse -- thiamine and folic acid - seizure precautions //COPD (chronic obstructive pulmonary disease) - duonebs if needed //HTN (hypertension) - Blood pressure was elevated during admission - continue with BB with holding parameters Discharge Planning: Discussed with case management and nursing and MDR. Continue to await safe discharge plan.
[2018-04-18] MEDS: QUEtiapine 25 MG Tablet PO SCH (21:36)
[2018-04-19] MEDS: Senna/Docusate Sodium 8.6/50 MG Tablet PO SCH ×2 (11:15→21:46)
[2018-04-19] MEDS: Metoprolol Tartrate 50 MG Tablet PO SCH ×2 (11:15→21:46)
--- NOTE | 2018-04-19 16:06 | P.PNIM ---
Subjective Interval history: Patient voices no complaints today, she remains somewhat confused at baseline. Physical Exam Vital signs: Vital Signs 04/18/18 20:00 04/18/18 21:37 04/19/18 08:00 Temperature 98.0 F 97.4 F L Pulse Rate 74 76 79 Respiratory Rate 18 20 Blood Pressure 93/53 L 109/84 102/76 Pulse Oximetry 74 L 97 Intake & Output 04/18/18 04/19/18 04/19/18 18:59 06:59 18:59 Intake Total 480 / 480 Balance 480 / 480 Weight 59.2 kg Intake: Oral 480 / 480 Other: # Voids 4 Narrative: GENERAL: AAOx2, no acute distress SKIN: Warm and dry. No rashes HEAD: Atruamtic, normocephalic. EYES: No scleral icterus. No injection or drainage. ENT: Moist mucous membranes, patent nares, no erythema of oropharynx. NECK: Supple, trachea midline. No JVD or lymphadenopathy. Normal thyroid. CARDIOVASCULAR: Regular rate and rhythm. No murmurs, gallops, or rubs. RESPIRATORY: Breath sounds clear equal bilaterally. No crackles or wheezes. No accessory muscle use. GASTROINTESTINAL: Abdomen soft, non-tender, nondistended, normal active bowel sounds MUSCULOSKELETAL: No cyanosis, or edema. NEURO: CN II-XII grossly intact, no focal deficits, no slurring of speech Results - Labs CBC & Chem 7: 03/07/18 08:25 03/09/18 08:00 Assessment and Plan - Assessment (1) Altered mental status Code(s): R41.82 - Altered mental status, unspecified Status: Chronic Plan: - Plan The patient is a 52 year old female with past medical history which includes Abnormal LFTs, EtOH abuse, chronic back pain, COPD, hypertension, SVT. Patient was brought to [facility] on 12/13 by friend for confusion x 2 weeks weakness and flu like symptoms. Patient was admitted to [facility] from 12/13/17 to 12/18/17 treated for metabolic encephalopathy related to UTI and then DC'd to [facility]. Patient was seen in the emergency department related to altered mentation and anemia . The patient at that time was had hemoglobin of 9.3 and her rectal examination was negative for blood. She was deemed safe for discharge with follow-up as an outpatient. Patient again presented to the ER 12/25/17 for increased altered mentation since falling at her [facility] living at approximately 8 :15 AM 12/25. The patient has a baseline history of altered mentation that is thought to be related to her history of alcohol abuse and Wernicke's encephalopathy. Psychiatry determined that she is not competent to make her own medical decisions. Altered mental status CT head negative, normal TSH, normal RPR, normal ammonia level Consider Warneke's encephalopathy, continue folic acid and thiamine, continue seizure precautions Psych declined admission, they feel this is alcohol-related Continuing Seroquel 100 mg nightly Psychiatry declined admission, they feel this is alcohol related, they declare patient is not competent to make her own decisions Case management working on guardianship appointment to obtain accepting facility Anemia On admission hgb 7.8, Hct 23.7, MCV 105.1 Gastroenterology consulted, recommends outpatient follow-up h/o COPD Duo nebs as needed Hypertension Continue beta-nela
[2018-04-19] MEDS: QUEtiapine 25 MG Tablet PO SCH (21:46)
[2018-04-20] MEDS: Metoprolol Tartrate 50 MG Tablet PO SCH ×2 (09:45→20:35)
[2018-04-20] MEDS: Senna/Docusate Sodium 8.6/50 MG Tablet PO SCH ×2 (09:45→20:35)
--- NOTE | 2018-04-20 11:10 | P.PNIM ---
Subjective Interval history: Patient is resting in bed today. She spends a lot of time in bed despite being ambulatory. She has no new complaints. Physical Exam Vital signs: Vital Signs 04/19/18 20:00 04/19/18 21:00 04/20/18 00:00 Temperature 97.8 F 97.9 F Pulse Rate 77 76 Respiratory Rate 18 20 20 Blood Pressure 103/61 98/68 L Pulse Oximetry 98 04/20/18 04:00 04/20/18 08:00 Temperature 97.7 F Pulse Rate 82 Respiratory Rate 18 16 Blood Pressure 94/55 L Pulse Oximetry 98 Intake & Output 04/19/18 04/20/18 04/20/18 18:59 06:59 18:59 Intake Total 600 / 600 Balance 600 / 600 Weight 58.2 kg Intake: Oral 600 / 600 Other: # Voids 2 Date of Last Bowel Movement 04/10/18 # Bowel Movements 0 Narrative: GENERAL: AAOx2, no acute distress SKIN: Warm and dry. No rashes HEAD: Atruamtic, normocephalic. EYES: No scleral icterus. No injection or drainage. ENT: Moist mucous membranes, patent nares, no erythema of oropharynx. NECK: Supple, trachea midline. No JVD or lymphadenopathy. Normal thyroid. CARDIOVASCULAR: Regular rate and rhythm. No murmurs, gallops, or rubs. RESPIRATORY: Breath sounds clear equal bilaterally. No crackles or wheezes. No accessory muscle use. GASTROINTESTINAL: Abdomen soft, non-tender, nondistended, normal active bowel sounds MUSCULOSKELETAL: No cyanosis, or edema. NEURO: CN II-XII grossly intact, no focal deficits, no slurring of speech Results - Labs CBC & Chem 7: 03/07/18 08:25 03/09/18 08:00 Assessment and Plan - Assessment (1) Altered mental status Code(s): R41.82 - Altered mental status, unspecified Status: Chronic Plan: - Plan The patient is a 52 year old female with past medical history which includes Abnormal LFTs, EtOH abuse, chronic back pain, COPD, hypertension, SVT. Patient was brought to [facility] on 12/13 by friend for confusion x 2 weeks weakness and flu like symptoms. Patient was admitted to [facility] from 12/13/17 to 12/18/17 treated for metabolic encephalopathy related to UTI and then DC'd to [facility]. Patient was seen in the emergency department related to altered mentation and anemia . The patient at that time was had hemoglobin of 9.3 and her rectal examination was negative for blood. She was deemed safe for discharge with follow-up as an outpatient. Patient again presented to the ER 12/25/17 for increased altered mentation since falling at her halfway at approximately 8 :15 AM 12/25. The patient has a baseline history of altered mentation that is thought to be related to her history of alcohol abuse and Wernicke's encephalopathy. Psychiatry determined that she is not competent to make her own medical decisions. 04/20/18 = patient is intermittently confused, family is unwilling to take on her care. No new complaints. No change to care plan. Altered mental status CT head negative, normal TSH, normal RPR, normal ammonia level Consider Warneke's encephalopathy, continue folic acid and thiamine, continue seizure precautions Psych declined admission, they feel this is alcohol-related Continuing Seroquel 100 mg nightly Psychiatry declined admission, they feel this is alcohol related, they declare patient is not competent to make her own decisions Case management working on guardianship appointment to obtain accepting facility Anemia On admission hgb 7.8, Hct 23.7, MCV 105.1 Gastroenterology consulted, recommends outpatient follow-up h/o COPD Duo nebs as needed Hypertension Continue beta-nela
[2018-04-20] MEDS: QUEtiapine 25 MG Tablet PO SCH (20:35)
[2018-04-21] MEDS: Senna/Docusate Sodium 8.6/50 MG Tablet PO SCH ×2 (09:35→21:23)
[2018-04-21] MEDS: Metoprolol Tartrate 50 MG Tablet PO SCH ×2 (09:36→21:23)
--- NOTE | 2018-04-21 11:44 | P.PNIM ---
Subjective Interval history: Patient is more awake today but still low energy. She states she has not been feeling herself lately. Denies fevers or dysuria but generally smells of urine. Physical Exam Vital signs: Vital Signs 04/20/18 20:00 04/21/18 00:00 04/21/18 04:00 Temperature 97.7 F Pulse Rate 95 H Respiratory Rate 18 20 20 Blood Pressure 109/68 Pulse Oximetry 100 04/21/18 08:00 Temperature 97.4 F L Pulse Rate 68 Respiratory Rate 20 Blood Pressure 100/64 Pulse Oximetry 96 Intake & Output 04/20/18 04/21/18 04/21/18 18:59 06:59 18:59 Intake Total 460 / 460 Balance 460 / 460 Weight 58.2 kg Intake: Oral 460 / 460 Other: # Voids 8 Date of Last Bowel Movement 04/19/18 # Bowel Movements 1 Narrative: GENERAL: AAOx2, no acute distress SKIN: Warm and dry. No rashes HEAD: Atruamtic, normocephalic. EYES: No scleral icterus. No injection or drainage. ENT: Moist mucous membranes, patent nares, no erythema of oropharynx. NECK: Supple, trachea midline. No JVD or lymphadenopathy. Normal thyroid. CARDIOVASCULAR: Regular rate and rhythm. No murmurs, gallops, or rubs. RESPIRATORY: Breath sounds clear equal bilaterally. No crackles or wheezes. No accessory muscle use. GASTROINTESTINAL: Abdomen soft, non-tender, nondistended, normal active bowel sounds MUSCULOSKELETAL: No cyanosis, or edema. NEURO: CN II-XII grossly intact, no focal deficits, no slurring of speech Results - Labs CBC & Chem 7: 03/07/18 08:25 03/09/18 08:00 Assessment and Plan - Assessment (1) Altered mental status Code(s): R41.82 - Altered mental status, unspecified Status: Chronic Plan: - Plan The patient is a 52 year old female with past medical history which includes Abnormal LFTs, EtOH abuse, chronic back pain, COPD, hypertension, SVT. Patient was brought to [facility] on 12/13 by friend for confusion x 2 weeks weakness and flu like symptoms. Patient was admitted to [facility] from 12/13/17 to 12/18/17 treated for metabolic encephalopathy related to UTI and then DC'd to [facility]. Patient was seen in the emergency department related to altered mentation and anemia . The patient at that time was had hemoglobin of 9.3 and her rectal examination was negative for blood. She was deemed safe for discharge with follow-up as an outpatient. Patient again presented to the ER 12/25/17 for increased altered mentation since [facility] at [facility] 8 :15 AM 12/25. The patient has a baseline history of altered mentation that is thought to be related to her history of alcohol abuse and Wernicke's encephalopathy. Psychiatry determined that she is not competent to make her own medical decisions. 04/20/18 = patient is intermittently confused, family is unwilling to take on her care. No new complaints. No change to care plan. 04/21/18 = patient states she feels low energy recently, looking into possible UTI and screening with a.m. given history of anemia Altered mental status CT head negative, normal TSH, normal RPR, normal ammonia level Consider Warneke's encephalopathy, continue folic acid and thiamine, continue seizure precautions Psych declined admission, they feel this is alcohol-related Continuing Seroquel 100 mg nightly Psychiatry declined admission, they feel this is alcohol related, they declare patient is not competent to make her own decisions Case management working on guardianship appointment to obtain accepting facility Generalized weakness Recent onset, consider urinary tract infection, lungs are clear Screening urinalysis today Check a.m. labs, CBC and BMP Anemia On admission hgb 7.8, Hct 23.7, MCV 105.1 Gastroenterology consulted, recommends outpatient follow-up h/o COPD Duo nebs as needed Hypertension Continue beta-nela
[2018-04-21 15:21] LABS: Bilirubin,Urine Negative (Negative); Clarity,Urine Clear (Clear); Color,Urine Yellow (Yellw/Straw); Glucose,Urine (UA) Negative (Negative); Leukocyte Esterase,Urine Negative (Negative); Nitrite,Urine Negative (Negative); Squamous Epithelial Cell,Urine <1 /hpf (0-5)
[2018-04-21] MEDS: QUEtiapine 25 MG Tablet PO SCH (21:23)
[2018-04-22 07:59] LABS: Hematocrit 31.4 % (35.0-46.0); Hemoglobin 10.8 gm/dL (11.6-15.3); Mean Corpuscular HGB Conc 34.5 % (32.0-36.0); Mean Corpuscular Hemoglobin 30.2 pg (27.0-34.0); Mean Corpuscular Volume 87.4 fL (80.0-100.0); Mean Platelet Volume 9.2 fL (7.0-11.0); Platelet Count 190 th/mm3 (150-450); Red Blood Count 3.59 mil/mm3 (4.00-5.30); Red Cell Distribution Width 13.2 % (11.6-17.2); White Blood Count 4.5 th/mm3 (4.0-11.0)
[2018-04-22 08:14] LABS: Calcium 9.9 mg/dL (8.5-10.1); Carbon Dioxide 27.2 meq/L (21.0-32.0); Potassium 3.7 meq/L (3.5-5.1)
[2018-04-22] MEDS: Senna/Docusate Sodium 8.6/50 MG Tablet PO SCH ×2 (09:10→20:32)
[2018-04-22] MEDS: Metoprolol Tartrate 50 MG Tablet PO SCH ×2 (09:11→20:32)
--- NOTE | 2018-04-22 12:37 | P.PNIM ---
Subjective Interval history: Remains somewhat sleepy today, this is not like her baseline. Urinalysis collected yesterday was negative for any infection. Her lung sounds are clear. She has no complaints. Physical Exam Vital signs: Vital Signs 04/21/18 20:00 04/22/18 08:00 Temperature 97.8 F 97.3 F L Pulse Rate 104 H 71 Respiratory Rate 20 18 Blood Pressure 102/72 99/58 L Pulse Oximetry 94 L 94 L Intake & Output 04/21/18 04/22/18 04/22/18 18:59 06:59 18:59 Intake Total 440 / 440 Balance 440 / 440 Weight 58.2 kg Intake: Oral 440 / 440 Other: # Voids 6 Date of Last Bowel Movement 04/19/18 04/19/18 # Bowel Movements 1 Narrative: GENERAL: AAOx2, no acute distress SKIN: Warm and dry. No rashes HEAD: Atruamtic, normocephalic. EYES: No scleral icterus. No injection or drainage. ENT: Moist mucous membranes, patent nares, no erythema of oropharynx. NECK: Supple, trachea midline. No JVD or lymphadenopathy. Normal thyroid. CARDIOVASCULAR: Regular rate and rhythm. No murmurs, gallops, or rubs. RESPIRATORY: Breath sounds clear equal bilaterally. No crackles or wheezes. No accessory muscle use. GASTROINTESTINAL: Abdomen soft, non-tender, nondistended, normal active bowel sounds MUSCULOSKELETAL: No cyanosis, or edema. NEURO: CN II-XII grossly intact, no focal deficits, no slurring of speech Results - Labs CBC & Chem 7: 04/22/18 06:45 04/22/18 06:45 Laboratory Results - last 24 hr 04/21/18 04/22/18 04/22/18 15:00 06:45 06:45 WBC 4.5 RBC 3.59 L Hgb 10.8 L Hct 31.4 L MCV 87.4 MCH 30.2 MCHC 34.5 RDW 13.2 Plt Count 190 MPV 9.2 Sodium 141 Potassium 3.7 Chloride 103 Carbon Dioxide 27.2 Anion Gap 11 BUN 35 H Creatinine 1.43 H Estimated GFR 38 L Random Glucose 86 Calcium 9.9 Urine Color Yellow Urine Clarity Clear Urine pH 7.0 Ur Specific Prichard 1.010 Urine Protein Negative Urine Glucose (UA) Negative Urine Ketones Negative Urine Occult Blood Negative Urine Nitrate Negative Urine Bilirubin Negative Urine Urobilinogen Less than 2 Ur Leukocyte Esterase Negative Urine RBC Less than 1 Urine WBC Less than 1 Ur Squamous Epith Cells <1 Micro UA Comment Culture not ind Ur Microscopic Review Not Reportable Urine Culture Comments Culture not ind Assessment and Plan - Assessment (1) Altered mental status Code(s): R41.82 - Altered mental status, unspecified Status: Chronic Plan: - Plan The patient is a 52 year old female with past medical history which includes Abnormal LFTs, EtOH abuse, chronic back pain, COPD, hypertension, SVT. Patient was brought to [facility] on 12/13 by friend for confusion x 2 weeks weakness and flu like symptoms. Patient was admitted to [facility] from 12/13/17 to 12/18/17 treated for metabolic encephalopathy related to UTI and then DC'd to [facility]. Patient was seen in the emergency department related to altered mentation and anemia . The patient at that time was had hemoglobin of 9.3 and her rectal examination was negative for blood. She was deemed safe for discharge with follow-up as an outpatient. Patient again presented to the ER 12/25/17 for increased altered mentation since falling at her intermediate at approximately 8 :15 AM 12/25. The patient has a baseline history of altered mentation that is thought to be related to her history of alcohol abuse and Wernicke's encephalopathy. Psychiatry determined that she is not competent to make her own medical decisions. 04/20/18 = patient is intermittently confused, family is unwilling to take on her care. No new complaints. No change to care plan. 04/21/18 = patient states she feels low energy recently, looking into possible UTI and screening with a.m. given history of anemia 04/22/18 = urinalysis was negative for any infection, no anemia, no electrolyte imbalance. Will check ammonia with a.m. labs Altered mental status CT head negative, normal TSH, normal RPR, normal ammonia level Consider Wernike's encephalopathy, continue folic acid and thiamine, continue seizure precautions Psych declined admission, they feel this is alcohol-related Continuing Seroquel 100 mg nightly Psychiatry declined admission, they feel this is alcohol related, they declare patient is not competent to make her own decisions Case management working on guardianship appointment to obtain accepting facility Generalized weakness Recent onset, consider urinary tract infection, lungs are clear Screening urinalysis today Check a.m. labs, CBC and BMP Anemia On admission hgb 7.8, Hct 23.7, MCV 105.1 Gastroenterology consulted, recommends outpatient follow-up h/o COPD Duo nebs as needed Hypertension Continue beta-nela
[2018-04-22] MEDS: QUEtiapine 25 MG Tablet PO SCH (20:32)
[2018-04-23] MEDS: Metoprolol Tartrate 50 MG Tablet PO SCH ×2 (08:46→21:22)
[2018-04-23] MEDS: Senna/Docusate Sodium 8.6/50 MG Tablet PO SCH ×2 (08:46→21:23)
--- NOTE | 2018-04-23 14:41 | P.PN ---
Subjective Interval history: Follow-up visit anemia, encephalopathy. Patient seen and examined today. Reports she is doing well. Eating well. Has been walking around the unit without any difficulty. Denies pain and discomfort. Denies SOB/ dyspnea. Denies chest pain, palpitations, headaches, dizziness. Denies fevers, chills, n/ v/d. Denies hematuria, dysuria. Physical Exam Vital signs: Vital Signs 04/22/18 20:00 04/23/18 08:00 Temperature 98 F 97.8 F Pulse Rate 75 73 Respiratory Rate 14 16 Blood Pressure 103/68 93/59 L Pulse Oximetry 95 95 Intake & Output 04/22/18 04/23/18 04/23/18 18:59 06:59 18:59 Intake Total 480 / 480 Balance 480 / 480 Weight 58.8 kg Intake: Oral 480 / 480 Other: # Voids 2 Date of Last Bowel Movement 04/19/18 04/21/18 # Bowel Movements 0 Narrative: GENERAL: This is a thin appearing, well-developed patient, in no apparent distress. SKIN: Warm and dry. HEENT: Normocephalic. Pupils equal round and reactive. Nose without bleeding. Airway patent. NECK: Trachea midline. CARDIOVASCULAR: Regular rate and rhythm without murmurs, gallops, or rubs. RESPIRATORY: Clear to auscultation. Breath sounds equal bilaterally. No wheezes , rales, or rhonchi. GASTROINTESTINAL: Abdomen soft, non-tender, nondistended. Bowel Sounds normoactive x4. MUSCULOSKELETAL: Extremities without clubbing, cyanosis, or edema. NEUROLOGICAL: Awake and alert. Periods of confusion recently oriented. No focal neuro deficit. Moves all extremities. Normal speech. Results - Labs CBC & Chem 7: 04/22/18 06:45 04/22/18 06:45 Laboratory Results - last 24 hr 04/23/18 06:20 Ammonia 22 Assessment and Plan - Assessment (1) Altered mental status Code(s): R41.82 - Altered mental status, unspecified Status: Chronic Plan: - Plan The patient is a 52 year old female with past medical history which includes Abnormal LFTs, EtOH abuse, chronic back pain, COPD, hypertension, SVT. Patient was brought to [facility] on 12/13 by friend for confusion x 2 weeks weakness and flu like symptoms. Patient was admitted to [facility] from 12/13/17 to 12/18/17 treated for metabolic encephalopathy related to UTI and then DC'd to [facility]. Patient was seen in the emergency department related to altered mentation and anemia . The patient at that time was had hemoglobin of 9.3 and her rectal examination was negative for blood. She was deemed safe for discharge with follow-up as an outpatient. Patient again presented to the ER 12/25/17 for increased altered mentation since falling at her residential at approximately 8 :15 AM 12/25. The patient has a baseline history of altered mentation that is thought to be related to her history of alcohol abuse and Wernicke's encephalopathy. Psychiatry determined that she is not competent to make her own medical decisions. Altered mental status -CT head negative, normal TSH, normal RPR, normal ammonia level -Consider Wernike's encephalopathy, continue folic acid and thiamine, continue seizure precautions -Psych declined admission, they feel this is alcohol-related -Continuing Seroquel 100 mg nightly -Psychiatry declined admission, they feel this is alcohol related, they declare patient is not competent to make her own decisions -Case management working on guardianship appointment to obtain accepting facility -Continues to have confusion. Family willing to take care of the patient. Generalized weakness -Continue to encourage physical activity such as walking around the unit -UA negative, no electrolyte imbalance noted Anemia -On admission hgb 7.8, Hct 23.7, MCV 105.1 -Gastroenterology consulted, recommends outpatient follow-up -H&H improved, stable EtOH -Counseled on cessation -Continue vitamin D h/o COPD -Duo nebs as needed Hypertension -Continue beta-nela DVT Prop ambulatory Code Status: Full Code Discussed Condition With: Patient, nurse Discharge Planning: DC when arrangements are made. Difficult DC no placement. CM following
[2018-04-23] MEDS: QUEtiapine 25 MG Tablet PO SCH (21:23)
[2018-04-24] MEDS: Metoprolol Tartrate 50 MG Tablet PO SCH (08:14)
[2018-04-24] MEDS: Senna/Docusate Sodium 8.6/50 MG Tablet PO SCH ×2 (08:14→21:48)
--- NOTE | 2018-04-24 14:17 | P.PN ---
Subjective Interval history: Follow-up visit anemia, encephalopathy. Patient seen and examined today. Reports she is doing well. Denies pain and discomfort. Denies SOB/ dyspnea. Denies chest pain, palpitations, headaches, dizziness. Denies fevers, chills, n/ v/d. Denies hematuria, dysuria. As per nursing, patient's blood pressure on the lower side at Metroprolol has been held. Physical Exam Vital signs: Vital Signs 04/23/18 20:00 04/24/18 08:00 Temperature 99.1 F 97.6 F Pulse Rate 88 74 Respiratory Rate 18 18 Blood Pressure 99/57 L 81/50 L Pulse Oximetry 96 97 Intake & Output 04/23/18 04/24/18 04/24/18 18:59 06:59 18:59 Weight 58.6 kg Narrative: GENERAL: This is a thin appearing, well-developed patient, in no apparent distress. SKIN: Warm and dry. HEENT: Normocephalic. Pupils equal round and reactive. Nose without bleeding. Airway patent. NECK: Trachea midline. CARDIOVASCULAR: Regular rate and rhythm without murmurs, gallops, or rubs. RESPIRATORY: Clear to auscultation. Breath sounds equal bilaterally. No wheezes , rales, or rhonchi. GASTROINTESTINAL: Abdomen soft, non-tender, nondistended. Bowel Sounds normoactive x4. MUSCULOSKELETAL: Extremities without clubbing, cyanosis, or edema. NEUROLOGICAL: Awake and alert. Periods of confusion recently oriented. No focal neuro deficit. Moves all extremities. Normal speech. Results - Labs CBC & Chem 7: 04/22/18 06:45 04/22/18 06:45 Assessment and Plan - Assessment (1) Altered mental status Code(s): R41.82 - Altered mental status, unspecified Status: Chronic Plan: - Plan The patient is a 52 year old female with past medical history which includes Abnormal LFTs, EtOH abuse, chronic back pain, COPD, hypertension, SVT. Patient was brought to [facility] on 12/13 by friend for confusion x 2 weeks weakness and flu like symptoms. Patient was admitted to [facility] from 12/13/17 to 12/18/17 treated for metabolic encephalopathy related to UTI and then DC'd to [facility]. Patient was seen in the emergency department related to altered mentation and anemia . The patient at that time was had hemoglobin of 9.3 and her rectal examination was negative for blood. She was deemed safe for discharge with follow-up as an outpatient. Patient again presented to the ER 12/25/17 for increased altered mentation since falling at her senior living at approximately 8 :15 AM 12/25. The patient has a baseline history of altered mentation that is thought to be related to her history of alcohol abuse and Wernicke's encephalopathy. Psychiatry determined that she is not competent to make her own medical decisions. Lower BP -Decrease metoprolol 12.5 mg twice daily, parameters in place. -May possibly wean off patient if necessary. Altered mental status -CT head negative, normal TSH, normal RPR, normal ammonia level -Consider Wernike's encephalopathy, continue folic acid and thiamine, continue seizure precautions -Psych declined admission, they feel this is alcohol-related -Continuing Seroquel 100 mg nightly -Psychiatry declined admission, they feel this is alcohol related, they declare patient is not competent to make her own decisions -Case management working on guardianship appointment to obtain accepting facility -Continues to have confusion. Family unwilling to take care of the patient. Generalized weakness -Continue to encourage physical activity such as walking around the unit -UA negative, no electrolyte imbalance noted Anemia -On admission hgb 7.8, Hct 23.7, MCV 105.1 -Gastroenterology consulted, recommends outpatient follow-up -H&H improved, stable EtOH -Counseled on cessation -Continue vitamin D h/o COPD -Duo nebs as needed Hypertension -Continue beta-nela DVT Prop ambulatory Code Status: Full Code Discussed Condition With: Patient, nursing Discharge Planning: DC when arrangements are made. Difficult DC no placement. CM following
[2018-04-24] MEDS: QUEtiapine 25 MG Tablet PO SCH (21:48)
[2018-04-24] MEDS: Metoprolol Tartrate 25 MG Tablet PO SCH (21:49)
[2018-04-25] MEDS: Metoprolol Tartrate 25 MG Tablet PO SCH ×2 (09:17→20:37)
[2018-04-25] MEDS: Senna/Docusate Sodium 8.6/50 MG Tablet PO SCH ×2 (09:17→20:37)
--- NOTE | 2018-04-25 14:39 | P.PN ---
Subjective Interval history: no complaints- good po intake up and ambulating Physical Exam Vital signs: Vital Signs 04/24/18 20:00 04/24/18 21:45 04/25/18 08:00 Temperature 98.0 F 97.3 F L Pulse Rate 91 H 84 77 Respiratory Rate 20 16 Blood Pressure 104/77 115/78 95/52 L Pulse Oximetry 99 97 Intake & Output 04/24/18 04/25/18 04/25/18 18:59 06:59 18:59 Intake Total 560 / 560 Balance 560 / 560 Weight 58.8 kg Intake: Oral 560 / 560 Other: # Voids 3 # Bowel Movements 0 Narrative: GENERAL: in no apparent distress. SKIN: Warm and dry. HEENT: Normocephalic. Pupils equal round and reactive. Nose without bleeding. Airway patent. NECK: Trachea midline. CARDIOVASCULAR: Regular rate and rhythm without murmurs, gallops, or rubs. RESPIRATORY: Clear to auscultation. Breath sounds equal bilaterally. No wheezes , rales, or rhonchi. GASTROINTESTINAL: Abdomen soft, non-tender, nondistended. Bowel Sounds normoactive x4. MUSCULOSKELETAL: Extremities without clubbing, cyanosis, or edema. NEUROLOGICAL: Awake and alert oriented x 3, speech clear. Moves all extremities. Normal speech. Results - Labs CBC & Chem 7: 04/22/18 06:45 04/22/18 06:45 Assessment and Plan - Assessment (1) Altered mental status Code(s): R41.82 - Altered mental status, unspecified Status: Chronic Plan: - Plan The patient is a 52 year old female with past medical history which includes Abnormal LFTs, EtOH abuse, chronic back pain, COPD, hypertension, SVT. Patient was brought to [facility] on 12/13 by friend for confusion x 2 weeks weakness and flu like symptoms. Patient was admitted to [facility] from 12/13/17 to 12/18/17 treated for metabolic encephalopathy related to UTI and then DC'd to [facility]. Patient was seen in the emergency department related to altered mentation and anemia . The patient at that time was had hemoglobin of 9.3 and her rectal examination was negative for blood. She was deemed safe for discharge with follow-up as an outpatient. Patient again presented to the ER 12/25/17 for increased altered mentation since [facility] 8 :15 AM 12/25. The patient has a baseline history of altered mentation that is thought to be related to her history of alcohol abuse and Wernicke's encephalopathy. Psychiatry determined that she is not competent to make her own medical decisions. History of PAT S/P AV ann ablation in the past Jul 2017 Lower BP -Decrease metoprolol 6.25 mg po bid today 04/25 -May possibly wean off patient if necessary. Altered mental status- cooeprative and appropriate on today's exam -CT head negative, normal TSH, normal RPR, normal ammonia level -Consider Wernike's encephalopathy, continue folic acid and thiamine, continue seizure precautions -Psych declined admission, they feel this is alcohol-related -Continuing Seroquel 100 mg nightly -Psychiatry declined admission, they feel this is alcohol related, they declare patient is not competent to make her own decisions -Case management working on guardianship appointment to obtain accepting facility -Continues to have confusion. Family unwilling to take care of the patient. reveiwed meds- has not been getting Ativan prn since 02/05- - will discontinue from [facility] Generalized weakness- improved, good po -Continue to encourage physical activity such as walking around the unit -UA negative, no electrolyte imbalance noted Anemia -On admission hgb 7.8, Hct 23.7, MCV 105.1 -Gastroenterology consulted, recommends outpatient follow-up -H&H improved, stable EtOH -Counseled on cessation -Continue vitamin D h/o COPD -Duo nebs as needed Hypertension -Continue beta-nela DVT Prop ambulatory Code Status: Full Code Discussed Condition With: Patient, nursing Discharge Planning: DC when arrangements are made. Difficult DC no placement. CM following
[2018-04-25] MEDS: QUEtiapine 25 MG Tablet PO SCH (20:36)
[2018-04-26] MEDS: Senna/Docusate Sodium 8.6/50 MG Tablet PO SCH ×2 (08:33→20:12)
[2018-04-26] MEDS: Metoprolol Tartrate 25 MG Tablet PO SCH ×2 (08:33→20:13)
--- NOTE | 2018-04-26 12:34 | P.PN ---
Subjective Interval history: no complainst doing well Physical Exam Vital signs: Vital Signs 04/25/18 20:00 04/26/18 08:00 Temperature 97.6 F 97.4 F L Pulse Rate 87 106 H Respiratory Rate 16 16 Blood Pressure 102/73 100/65 Pulse Oximetry 99 97 Intake & Output 04/25/18 04/26/18 04/26/18 18:59 06:59 18:59 Intake Total 540 / 540 Balance 540 / 540 Weight 57.9 kg Intake: Oral 540 / 540 Other: # Voids 2 # Bowel Movements 0 Narrative: GENERAL: in no apparent distress. SKIN: Warm and dry. HEENT: Normocephalic. Pupils equal round and reactive. Nose without bleeding. Airway patent. NECK: Trachea midline. CARDIOVASCULAR: Regular rate and rhythm without murmurs, gallops, or rubs. RESPIRATORY: Clear to auscultation. Breath sounds equal bilaterally. No wheezes , rales, or rhonchi. GASTROINTESTINAL: Abdomen soft, non-tender, nondistended. Bowel Sounds normoactive x4. MUSCULOSKELETAL: Extremities without clubbing, cyanosis, or edema. NEUROLOGICAL: Awake and alert oriented x 3, speech clear. Moves all extremities. Normal speech. Results - Labs CBC & Chem 7: 04/22/18 06:45 04/22/18 06:45 Assessment and Plan - Assessment (1) Altered mental status Code(s): R41.82 - Altered mental status, unspecified Status: Chronic Plan: - Plan The patient is a 52 year old female with past medical history which includes Abnormal LFTs, EtOH abuse, chronic back pain, COPD, hypertension, SVT. Patient was brought to [facility] on 12/13 by friend for confusion x 2 weeks weakness and flu like symptoms. Patient was admitted to [facility] from 12/13/17 to 12/18/17 treated for metabolic encephalopathy related to UTI and then DC'd to [facility]. Patient was seen in the emergency department related to altered mentation and anemia . The patient at that time was had hemoglobin of 9.3 and her rectal examination was negative for blood. She was deemed safe for discharge with follow-up as an outpatient. Patient again presented to the ER 12/25/17 for increased altered mentation since falling at her skilled nursing at approximately 8 :15 AM 12/25. The patient has a baseline history of altered mentation that is thought to be related to her history of alcohol abuse and Wernicke's encephalopathy. Psychiatry determined that she is not competent to make her own medical decisions. History of PAT S/P AV ann ablation in the past Jul 2017 Lower BP- stble -Decrease metoprolol 6.25 mg po bid today 04/25 -May possibly wean off patient if necessary. Altered mental status- cooeprative and appropriate -CT head negative, normal TSH, normal RPR, normal ammonia level -Consider Wernike's encephalopathy, continue folic acid and thiamine, continue seizure precautions -Psych declined admission, they feel this is alcohol-related -Continuing Seroquel 100 mg nightly -Psychiatry declined admission, they feel this is alcohol related, they declare patient is not competent to make her own decisions -Case management working on guardianship appointment to obtain accepting facility -Continues to have confusion. Family unwilling to take care of the patient. reveiwed meds- has not been getting Ativan prn since 02/05- - will discontinue from [facility] 04/26 Generalized weakness- improved, good po -Continue to encourage physical activity such as walking around the unit -UA negative, no electrolyte imbalance noted Anemia -On admission hgb 7.8, Hct 23.7, MCV 105.1 -Gastroenterology consulted, recommends outpatient follow-up -H&H improved, stable EtOH -Counseled on cessation -Continue vitamin D h/o COPD -Duo nebs as needed Hypertension -Continue beta-nela DVT Prop ambulatory Code Status: Full Code Discussed Condition With: Patient, nursing Discharge Planning: DC when arrangements are made. Difficult DC no placement. CM following
[2018-04-26] MEDS: QUEtiapine 25 MG Tablet PO SCH (20:12)
[2018-04-27] MEDS: Metoprolol Tartrate 25 MG Tablet PO SCH ×2 (08:20→20:39)
[2018-04-27] MEDS: Senna/Docusate Sodium 8.6/50 MG Tablet PO SCH ×2 (08:21→20:39)
--- NOTE | 2018-04-27 12:37 | P.PN ---
Subjective Interval history: stable- no complains Physical Exam Vital signs: Vital Signs 04/26/18 16:00 04/26/18 20:00 04/27/18 08:00 Temperature 98.4 F 98.0 F Pulse Rate 81 74 Respiratory Rate 14 20 Blood Pressure 103/81 123/76 Pulse Oximetry 97 98 97 Intake & Output 04/26/18 04/27/18 04/27/18 18:59 06:59 18:59 Intake Total 480 / 480 420 / 420 Balance 480 / 480 420 / 420 Weight 58.9 kg Intake: Oral 480 / 480 420 / 420 Other: # Voids 3 3 # Bowel Movements 0 Narrative: in no apparent distress. SKIN: Warm and dry. HEENT: Normocephalic. Pupils equal round and reactive. Nose without bleeding. Airway patent. NECK: Trachea midline. CARDIOVASCULAR: Regular rate and rhythm without murmurs, gallops, or rubs. RESPIRATORY: Clear to auscultation. Breath sounds equal bilaterally. No wheezes , rales, or rhonchi. GASTROINTESTINAL: Abdomen soft, non-tender, nondistended. Bowel Sounds normoactive x4. MUSCULOSKELETAL: Extremities without clubbing, cyanosis, or edema. NEUROLOGICAL: Awake and alert oriented x 3, speech clear. Moves all extremities. Normal speech. Results - Labs CBC & Chem 7: 04/22/18 06:45 04/22/18 06:45 Assessment and Plan - Assessment (1) Altered mental status Code(s): R41.82 - Altered mental status, unspecified Status: Chronic Plan: - Plan The patient is a 52 year old female with past medical history which includes Abnormal LFTs, EtOH abuse, chronic back pain, COPD, hypertension, SVT. Patient was brought to [facility] on 12/13 by friend for confusion x 2 weeks weakness and flu like symptoms. Patient was admitted to [facility] from 12/13/17 to 12/18/17 treated for metabolic encephalopathy related to UTI and then DC'd to [facility]. Patient was seen in the emergency department related to altered mentation and anemia . The patient at that time was had hemoglobin of 9.3 and her rectal examination was negative for blood. She was deemed safe for discharge with follow-up as an outpatient. Patient again presented to the ER 12/25/17 for increased altered mentation since [facility] :15 AM 12/[facility]. The patient has a baseline history of altered mentation that is thought to be related to her history of alcohol abuse and Wernicke's encephalopathy. Psychiatry determined that she is not competent to make her own medical decisions. History of PAT S/P AV ann ablation in the past Jul 2017 - stable BP readings -Decrease metoprolol 6.25 mg po bid 04/25- good readings- rate controlled -May possibly wean off patient if necessary. Altered mental status- cooperative and appropriate -CT head negative, normal TSH, normal RPR, normal ammonia level -Consider Wernike's encephalopathy, continue folic acid and thiamine, continue seizure precautions -Psych declined admission, they feel this is alcohol-related -Continuing Seroquel 100 mg nightly -Psychiatry declined admission, they feel this is alcohol related, they declare patient is not competent to make her own decisions -Case management working on guardianship appointment to obtain accepting facility -Continues to have confusion. Family unwilling to take care of the patient. reveiwed meds- has not been getting Ativan prn since 02/05- - will discontinue from [facility] 04/26 Generalized weakness- improved, good po - up and ambulating -Continue to encourage physical activity such as walking around the unit -UA negative, no electrolyte imbalance noted Anemia -On admission hgb 7.8, Hct 23.7, MCV 105.1 -Gastroenterology consulted, recommends outpatient follow-up -H&H improved, stable EtOH -Counseled on cessation -Continue vitamin D h/o COPD -Duo nebs as needed Hypertension -Continue beta-nela DVT Prop ambulatory Code Status: Full Code Discussed Condition With: Patient, nursing Discharge Planning: DC when arrangements are made. Difficult DC no placement. CM following
[2018-04-27] MEDS: QUEtiapine 25 MG Tablet PO SCH (20:39)
[2018-04-28] MEDS: Senna/Docusate Sodium 8.6/50 MG Tablet PO SCH ×2 (08:28→20:37)
[2018-04-28] MEDS: Metoprolol Tartrate 25 MG Tablet PO SCH ×3 (09:17→20:38)
--- NOTE | 2018-04-28 09:20 | P.PN ---
Subjective Interval history: tachy on exam- sinus around 110s when examined no complains Physical Exam Vital signs: Vital Signs 04/27/18 20:00 04/28/18 08:00 Temperature 98 F 97.5 F L Pulse Rate 83 93 H Respiratory Rate 20 16 Blood Pressure 116/71 101/63 Pulse Oximetry 95 95 Intake & Output 04/27/18 04/28/18 04/28/18 18:59 06:59 18:59 Intake Total 480 / 480 Balance 480 / 480 Intake: Oral 480 / 480 Other: # Voids 4 Date of Last Bowel Movement 04/27/18 Narrative: in no apparent distress. SKIN: Warm and dry. HEENT: Normocephalic. Pupils equal round and reactive. Nose without bleeding. Airway patent. NECK: Trachea midline. CARDIOVASCULAR: Regular rhythm without murmurs, gallops, or rubs. tachycardic periodically RESPIRATORY: Clear to auscultation. Breath sounds equal bilaterally. No wheezes , rales, or rhonchi. GASTROINTESTINAL: Abdomen soft, non-tender, nondistended. Bowel Sounds normoactive x4. MUSCULOSKELETAL: Extremities without clubbing, cyanosis, or edema. NEUROLOGICAL: Awake and alert oriented x 3, speech clear. Moves all extremities. Normal speech. Results - Labs CBC & Chem 7: 04/22/18 06:45 04/22/18 06:45 Assessment and Plan - Assessment (1) Altered mental status Code(s): R41.82 - Altered mental status, unspecified Status: Chronic Plan: - Plan The patient is a 52 year old female with past medical history which includes Abnormal LFTs, EtOH abuse, chronic back pain, COPD, hypertension, SVT. Patient was brought to [facility] on 12/13 by friend for confusion x 2 weeks weakness and flu like symptoms. Patient was admitted to [facility] from 12/13/17 to 12/18/17 treated for metabolic encephalopathy related to UTI and then DC'd to [facility]. Patient was seen in the emergency department related to altered mentation and anemia . The patient at that time was had hemoglobin of 9.3 and her rectal examination was negative for blood. She was deemed safe for discharge with follow-up as an outpatient. Patient again presented to the ER 12/25/17 for increased altered mentation since falling at her care home at approximately 8 :15 AM 12/25. The patient has a baseline history of altered mentation that is thought to be related to her history of alcohol abuse and Wernicke's encephalopathy. Psychiatry determined that she is not competent to make her own medical decisions. History of PAT S/P AV ann ablation in the past Jul 2017 - stable BP readings HR up on exam- place back on telemetry -Decrease metoprolol 6.25 mg po bid 04/25-- increase t0 12.5 mg po bid today and monitor Altered mental status- cooperative and appropriate -CT head negative, normal TSH, normal RPR, normal ammonia level -Consider Wernike's encephalopathy, continue folic acid and thiamine, continue seizure precautions -Psych declined admission, they feel this is alcohol-related -Continuing Seroquel 100 mg nightly -Psychiatry declined admission, they feel this is alcohol related, they declare patient is not competent to make her own decisions -Case management working on guardianship appointment to obtain accepting facility -Continues to have confusion. Family unwilling to take care of the patient. reveiwed meds- has not been getting Ativan prn since 02/05- - will discontinue from [facility] 04/26 Generalized weakness- improved, good po - up and ambulating -Continue to encourage physical activity such as walking around the unit -UA negative, no electrolyte imbalance noted Anemia -On admission hgb 7.8, Hct 23.7, MCV 105.1 -Gastroenterology consulted, recommends outpatient follow-up -H&H improved, stable EtOH -Counseled on cessation -Continue vitamin D h/o COPD -Duo nebs as needed Hypertension -Continue beta-nela DVT Prop ambulatory Code Status: Full Code Discussed Condition With: Patient, nursing Discharge Planning: DC when arrangements are made. Difficult DC no placement. CM following
[2018-04-28] MEDS: QUEtiapine 25 MG Tablet PO SCH (20:37)
[2018-04-29] MEDS: Metoprolol Tartrate 25 MG Tablet PO SCH ×2 (09:36→20:26)
[2018-04-29] MEDS: Senna/Docusate Sodium 8.6/50 MG Tablet PO SCH ×2 (09:37→20:26)
--- NOTE | 2018-04-29 09:48 | P.PN ---
Subjective Interval history: Heart rate - improvedup and ambualting no complains Physical Exam Vital signs: Vital Signs 04/28/18 12:01 04/28/18 16:00 04/28/18 19:37 Temperature 97.8 F Pulse Rate 75 75 86 Respiratory Rate 18 Blood Pressure 99/68 L Pulse Oximetry 95 04/28/18 20:00 04/28/18 20:42 04/28/18 23:54 Temperature Pulse Rate 107 H 109 H Respiratory Rate Blood Pressure 106/75 Pulse Oximetry 04/29/18 04:00 Temperature Pulse Rate 81 Respiratory Rate Blood Pressure Pulse Oximetry Intake & Output 04/28/18 04/29/18 04/29/18 18:59 06:59 18:59 Intake Total 480 / 480 Balance 480 / 480 Intake: Oral 480 / 480 Other: # Voids 3 Date of Last Bowel Movement 04/27/18 # Bowel Movements 0 Narrative: in no apparent distress. SKIN: Warm and dry. HEENT: Normocephalic. Pupils equal round and reactive. Nose without bleeding. Airway patent. NECK: Trachea midline. CARDIOVASCULAR: Regular rhythm without murmurs, gallops, or rubs. tachycardic periodically RESPIRATORY: Clear to auscultation. Breath sounds equal bilaterally. No wheezes , rales, or rhonchi. GASTROINTESTINAL: Abdomen soft, non-tender, nondistended. Bowel Sounds normoactive x4. MUSCULOSKELETAL: Extremities without clubbing, cyanosis, or edema. NEUROLOGICAL: Awake and alert oriented x 3, speech clear. Moves all extremities. Normal speech. Results - Labs CBC & Chem 7: 04/22/18 06:45 04/22/18 06:45 Assessment and Plan - Assessment (1) Altered mental status Code(s): R41.82 - Altered mental status, unspecified Status: Chronic Plan: - Plan The patient is a 52 year old female with past medical history which includes Abnormal LFTs, EtOH abuse, chronic back pain, COPD, hypertension, SVT. Patient was brought to [facility] on 12/13 by friend for confusion x 2 weeks weakness and flu like symptoms. Patient was admitted to [facility] from 12/13/17 to 12/18/17 treated for metabolic encephalopathy related to UTI and then DC'd to [facility]. Patient was seen in the emergency department related to altered mentation and anemia . The patient at that time was had hemoglobin of 9.3 and her rectal examination was negative for blood. She was deemed safe for discharge with follow-up as an outpatient. Patient again presented to the ER 12/25/17 for increased altered mentation since [facility] at approximately 8 :15 AM 12/25. The patient has a baseline history of altered mentation that is thought to be related to her history of alcohol abuse and Wernicke's encephalopathy. Psychiatry determined that she is not competent to make her own medical decisions. History of PAT S/P AV ann ablation in the past Jul 2017- HR better 90s - stable BP readings HR up on exam- place back on telemetry -Decrease metoprolol 6.25 mg po bid 04/25-- increase t0 12.5 mg po bid 04/28 and monitor Altered mental status- Improved cooperative and appropriate -CT head negative, normal TSH, normal RPR, normal ammonia level -Consider Wernike's encephalopathy, continue folic acid and thiamine, continue seizure precautions -Psych declined admission, they feel this is alcohol-related -Continuing Seroquel 100 mg nightly -Psychiatry declined admission, they feel this is alcohol related, they declare patient is not competent to make her own decisions -Case management working on guardianship appointment to obtain accepting facility -Continues to have confusion. Family unwilling to take care of the patient. reveiwed meds- has not been getting Ativan prn since 02/05- - will discontinue from [facility] 04/26 Generalized weakness- improved, good po - up and ambulating -Continue to encourage physical activity such as walking around the unit -UA negative, no electrolyte imbalance noted Anemia -On admission hgb 7.8, Hct 23.7, MCV 105.1 -Gastroenterology consulted, recommends outpatient follow-up -H&H improved, stable EtOH -Counseled on cessation -Continue vitamin D h/o COPD -Duo nebs as needed Hypertension -Continue beta-nela DVT Prop ambulatory Code Status: Full Code Discussed Condition With: Patient, nursing Discharge Planning: DC when arrangements are made. Difficult DC no placement. CM following
[2018-04-29] MEDS: QUEtiapine 25 MG Tablet PO SCH (20:25)
[2018-04-30] MEDS: Senna/Docusate Sodium 8.6/50 MG Tablet PO SCH ×2 (08:30→21:13)
[2018-04-30] MEDS: Metoprolol Tartrate 25 MG Tablet PO SCH ×2 (08:33→21:13)
--- NOTE | 2018-04-30 11:57 | P.PNIM ---
Subjective Interval history: in no distress. no new complaints. Physical Exam Vital signs: Vital Signs 04/29/18 20:00 04/30/18 01:29 04/30/18 04:00 Temperature 97.9 F Pulse Rate 87 82 77 Respiratory Rate 20 Blood Pressure 107/80 Pulse Oximetry 99 04/30/18 08:00 Temperature 97.5 F L Pulse Rate 67 Respiratory Rate 16 Blood Pressure 117/64 Pulse Oximetry Intake & Output 04/29/18 04/30/18 04/30/18 18:59 06:59 18:59 Weight 58.9 kg Other: Date of Last Bowel Movement 04/27/18 - Constitutional no acute distress - Routine Respiratory Exam Present: CTA bilaterally - Routine Cardiovascular Exam Present: RRR - Routine Abdominal Exam Present: soft Results - Labs CBC & Chem 7: 04/22/18 06:45 04/22/18 06:45 Assessment and Plan - Assessment (1) Altered mental status Code(s): R41.82 - Altered mental status, unspecified Status: Chronic Plan: - Plan The patient is a 52 year old female with past medical history which includes Abnormal LFTs, EtOH abuse, chronic back pain, COPD, hypertension, SVT. Patient was brought to [facility] on 12/13 by friend for confusion x 2 weeks weakness and flu like symptoms. Patient was admitted to [facility] from 12/13/17 to 12/18/17 treated for metabolic encephalopathy related to UTI and then DC'd to [facility]. Patient was seen in the emergency department related to altered mentation and anemia . The patient at that time was had hemoglobin of 9.3 and her rectal examination was negative for blood. She was deemed safe for discharge with follow-up as an outpatient. Patient again presented to the ER 12/25/17 for increased altered mentation since [facility] at approximately 8 :15 AM 12/25. The patient has a baseline history of altered mentation that is thought to be related to her history of alcohol abuse and Wernicke's encephalopathy. Psychiatry determined that she is not competent to make her own medical decisions. History of PAT S/P AV ann ablation in the past Jul 2017- HR better 90s - stable BP readings HR up on exam- placed back on telemetry -on metoprolol t0 12.5 mg po bid - will monitor. Altered mental status- Improved cooperative and appropriate -CT head negative, normal TSH, normal RPR, normal ammonia level -Consider Wernike's encephalopathy, continue folic acid and thiamine, continue seizure precautions -Psych declined admission, they feel this is alcohol-related -Continuing Seroquel 100 mg nightly -Psychiatry declined admission, they feel this is alcohol related, they declare patient is not competent to make her own decisions -Case management working on guardianship appointment to obtain accepting facility -Continues to have confusion. Family unwilling to take care of the patient. Generalized weakness- improved, good po - up and ambulating -Continue to encourage physical activity such as walking around the unit -UA negative, no electrolyte imbalance noted Anemia -On admission hgb 7.8, Hct 23.7, MCV 105.1 -Gastroenterology consulted, recommends outpatient follow-up -H&H improved, stable EtOH -Counseled on cessation -Continue vitamin D h/o COPD -Duo nebs as needed Hypertension -Continue beta-nela DVT Prop ambulatory Code Status: Full Code Discussed Condition With: Patient, nursing Discharge Planning: awaiting placement.
[2018-04-30] MEDS: QUEtiapine 25 MG Tablet PO SCH (21:13)
--- NOTE | 2018-04-30 22:44 | ECG ---
Date Performed: 04/30/2018 Time Performed: 13:14:41 PTAGE: 52 years EKG: Sinus rhythm WITH FIRST DEGREE AV BLOCK INDETERMINATE AXIS ABNORMAL ECG PREVIOUS TRACING : 12/31/2017 10.19 Compared to previous tracing, rate slower DOCTOR: Jose Levine Interpretating Date/Time 04/30/2018 22:43:55
[2018-05-01] MEDS: Metoprolol Tartrate 25 MG Tablet PO SCH ×2 (08:57→21:10)
[2018-05-01] MEDS: Senna/Docusate Sodium 8.6/50 MG Tablet PO SCH ×2 (08:57→21:11)
--- NOTE | 2018-05-01 12:07 | P.PNIM ---
Subjective Interval history: in no acute distress. no new complaints; no change. Physical Exam Vital signs: Vital Signs 04/30/18 16:00 04/30/18 19:45 04/30/18 20:00 Temperature 98.2 F Pulse Rate 115 H 99 H 72 Respiratory Rate 20 Blood Pressure 106/73 Pulse Oximetry 99 05/01/18 00:00 05/01/18 03:50 05/01/18 08:00 Temperature 97.9 F Pulse Rate 70 79 89 Respiratory Rate 17 Blood Pressure 100/54 L Pulse Oximetry 98 Intake & Output 04/30/18 05/01/18 05/01/18 18:59 06:59 18:59 Intake Total 221 / 221 Balance 221 / 221 Weight 58.9 kg Intake: Oral 221 / 221 Other: # Voids 3 - Constitutional no acute distress (clinically no change.) Results - Labs CBC & Chem 7: 04/22/18 06:45 04/22/18 06:45 Assessment and Plan - Assessment (1) Altered mental status Code(s): R41.82 - Altered mental status, unspecified Status: Chronic Plan: - Plan The patient is a 52 year old female with past medical history which includes Abnormal LFTs, EtOH abuse, chronic back pain, COPD, hypertension, SVT. Patient was brought to [facility] on 12/13 by friend for confusion x 2 weeks weakness and flu like symptoms. Patient was admitted to [facility] from 12/13/17 to 12/18/17 treated for metabolic encephalopathy related to UTI and then DC'd to [facility]. Patient was seen in the emergency department related to altered mentation and anemia . The patient at that time was had hemoglobin of 9.3 and her rectal examination was negative for blood. She was deemed safe for discharge with follow-up as an outpatient. Patient again presented to the ER 12/25/17 for increased altered mentation since falling at her group home at approximately 8 :15 AM 12/25. The patient has a baseline history of altered mentation that is thought to be related to her history of alcohol abuse and Wernicke's encephalopathy. Psychiatry determined that she is not competent to make her own medical decisions. History of PAT S/P AV ann ablation in the past Jul 2017- HR better 90s - stable BP readings HR up on exam- placed back on telemetry -on metoprolol t0 12.5 mg po bid - will monitor. Altered mental status- Improved cooperative and appropriate -CT head negative, normal TSH, normal RPR, normal ammonia level -Consider Wernike's encephalopathy, continue folic acid and thiamine, continue seizure precautions -Psych declined admission, they feel this is alcohol-related -Continuing Seroquel 100 mg nightly -Psychiatry declined admission, they feel this is alcohol related, they declare patient is not competent to make her own decisions -Case management working on guardianship appointment to obtain accepting facility -Continues to have confusion. Family unwilling to take care of the patient. Generalized weakness- improved, good po - up and ambulating -Continue to encourage physical activity such as walking around the unit -UA negative, no electrolyte imbalance noted Anemia -On admission hgb 7.8, Hct 23.7, MCV 105.1 -Gastroenterology consulted, recommends outpatient follow-up -H&H improved, stable EtOH -Counseled on cessation -Continue vitamin D h/o COPD -Duo nebs as needed Hypertension -Continue beta-nela DVT Prop ambulatory Code Status: Full Code Discussed Condition With: Discharge Planning: awaiting placement.
[2018-05-01] MEDS: QUEtiapine 25 MG Tablet PO SCH (21:10)
[2018-05-02] MEDS: Metoprolol Tartrate 25 MG Tablet PO SCH ×2 (09:14→20:38)
[2018-05-02] MEDS: Senna/Docusate Sodium 8.6/50 MG Tablet PO SCH ×2 (09:14→20:38)
--- NOTE | 2018-05-02 11:40 | P.PNIM ---
Subjective Interval history: in no distress. clinically no change. Physical Exam Vital signs: Vital Signs 05/01/18 12:00 05/01/18 16:00 05/01/18 20:00 Temperature 97.7 F Pulse Rate 73 73 78 Respiratory Rate Blood Pressure 110/69 Pulse Oximetry 98 05/01/18 20:20 05/01/18 23:50 05/02/18 04:00 Temperature Pulse Rate 73 76 72 Respiratory Rate Blood Pressure Pulse Oximetry 05/02/18 08:00 Temperature 97.2 F L Pulse Rate 62 Respiratory Rate 18 Blood Pressure 104/65 Pulse Oximetry 100 Intake & Output 05/01/18 05/02/18 05/02/18 18:59 06:59 18:59 Intake Total 720 / 720 Balance 720 / 720 Weight 58.7 kg Intake: Oral 720 / 720 Other: # Voids 3 # Bowel Movements 0 - Constitutional no acute distress (clinically the same.) Results - Labs CBC & Chem 7: 04/22/18 06:45 04/22/18 06:45 Assessment and Plan - Assessment (1) Altered mental status Code(s): R41.82 - Altered mental status, unspecified Status: Chronic Plan: - Plan The patient is a 52 year old female with past medical history which includes Abnormal LFTs, EtOH abuse, chronic back pain, COPD, hypertension, SVT. Patient was brought to [facility] on 12/13 by friend for confusion x 2 weeks weakness and flu like symptoms. Patient was admitted to [facility] from 12/13/17 to 12/18/17 treated for metabolic encephalopathy related to UTI and then DC'd to [facility]. Patient was seen in the emergency department related to altered mentation and anemia . The patient at that time was had hemoglobin of 9.3 and her rectal examination was negative for blood. She was deemed safe for discharge with follow-up as an outpatient. Patient again presented to the ER 12/25/17 for increased altered mentation since falling at her group home at approximately 8 :15 AM 12/25. The patient has a baseline history of altered mentation that is thought to be related to her history of alcohol abuse and Wernicke's encephalopathy. Psychiatry determined that she is not competent to make her own medical decisions. History of PAT S/P AV ann ablation in the past Jul 2017- HR better 90s - stable BP readings HR up on exam- placed back on telemetry -on metoprolol t0 12.5 mg po bid - will monitor. Altered mental status- Improved cooperative and appropriate -CT head negative, normal TSH, normal RPR, normal ammonia level -Consider Wernike's encephalopathy, continue folic acid and thiamine, continue seizure precautions -Psych declined admission, they feel this is alcohol-related -Continuing Seroquel 100 mg nightly -Psychiatry declined admission, they feel this is alcohol related, they declare patient is not competent to make her own decisions -Case management working on guardianship appointment to obtain accepting facility -Continues to have confusion. Family unwilling to take care of the patient. Generalized weakness- improved, good po - up and ambulating -Continue to encourage physical activity such as walking around the unit -UA negative, no electrolyte imbalance noted Anemia -On admission hgb 7.8, Hct 23.7, MCV 105.1 -Gastroenterology consulted, recommends outpatient follow-up -H&H improved, stable EtOH -Counseled on cessation -Continue vitamin D h/o COPD -Duo nebs as needed Hypertension -Continue beta-nela DVT Prop ambulatory Code Status: Full Code Discussed Condition With: Discharge Planning: awaiting placement.
[2018-05-02] MEDS: QUEtiapine 25 MG Tablet PO SCH (20:37)
[2018-05-03] MEDS: Metoprolol Tartrate 25 MG Tablet PO SCH ×2 (08:54→20:12)
[2018-05-03] MEDS: Senna/Docusate Sodium 8.6/50 MG Tablet PO SCH ×2 (08:54→20:12)
--- NOTE | 2018-05-03 11:20 | P.PNIM ---
Subjective Interval history: in no distress. clinically no change. Physical Exam Vital signs: Vital Signs 05/02/18 12:00 05/02/18 16:00 05/02/18 20:00 Temperature 97.7 F Pulse Rate 61 78 80 Respiratory Rate 18 Blood Pressure 107/78 Pulse Oximetry 98 05/03/18 00:00 05/03/18 04:00 05/03/18 08:00 Temperature 98.1 F Pulse Rate 91 H 80 84 Respiratory Rate 18 Blood Pressure 99/61 L Pulse Oximetry 97 Intake & Output 05/02/18 05/03/18 05/03/18 18:59 06:59 18:59 Intake Total 960 / 960 Balance 960 / 960 Weight 58.1 kg Intake: Oral 960 / 960 Other: # Voids 4 Date of Last Bowel Movement 04/27/18 05/02/18 - Constitutional no acute distress (no change clinically.) Results - Labs CBC & Chem 7: 04/22/18 06:45 04/22/18 06:45 Assessment and Plan - Assessment (1) Altered mental status Code(s): R41.82 - Altered mental status, unspecified Status: Chronic Plan: - Plan The patient is a 52 year old female with past medical history which includes Abnormal LFTs, EtOH abuse, chronic back pain, COPD, hypertension, SVT. Patient was brought to [facility] on 12/13 by friend for confusion x 2 weeks weakness and flu like symptoms. Patient was admitted to [facility] from 12/13/17 to 12/18/17 treated for metabolic encephalopathy related to UTI and then DC'd to [facility]. Patient was seen in the emergency department related to altered mentation and anemia . The patient at that time was had hemoglobin of 9.3 and her rectal examination was negative for blood. She was deemed safe for discharge with follow-up as an outpatient. Patient again presented to the ER 12/25/17 for increased altered mentation since falling at her shelter at approximately 8 :15 AM 12/25. The patient has a baseline history of altered mentation that is thought to be related to her history of alcohol abuse and Wernicke's encephalopathy. Psychiatry determined that she is not competent to make her own medical decisions. History of PAT S/P AV ann ablation in the past Jul 2017- HR better 90s - stable BP readings HR up on exam- placed back on telemetry -on metoprolol t0 12.5 mg po bid - will monitor. Altered mental status- Improved cooperative and appropriate -CT head negative, normal TSH, normal RPR, normal ammonia level -Consider Wernike's encephalopathy, continue folic acid and thiamine, continue seizure precautions -Psych declined admission, they feel this is alcohol-related -Continuing Seroquel 100 mg nightly -Psychiatry declined admission, they feel this is alcohol related, they declare patient is not competent to make her own decisions -Case management working on guardianship appointment to obtain accepting facility -Continues to have confusion. Family unwilling to take care of the patient. Generalized weakness- improved, good po - up and ambulating -Continue to encourage physical activity such as walking around the unit -UA negative, no electrolyte imbalance noted Anemia -On admission hgb 7.8, Hct 23.7, MCV 105.1 -Gastroenterology consulted, recommends outpatient follow-up -H&H improved, stable EtOH -Counseled on cessation -Continue vitamin D h/o COPD -Duo nebs as needed Hypertension -Continue beta-nela DVT Prop ambulatory Code Status: Full Code Discussed Condition With: Discharge Planning: awaiting placement.
[2018-05-03] MEDS: QUEtiapine 25 MG Tablet PO SCH (20:12)
[2018-05-04] MEDS: Metoprolol Tartrate 25 MG Tablet PO SCH ×2 (09:46→20:28)
[2018-05-04] MEDS: Senna/Docusate Sodium 8.6/50 MG Tablet PO SCH ×2 (09:46→20:28)
--- NOTE | 2018-05-04 10:55 | P.PNIM ---
Subjective Interval history: in no acute distress. no new complaints. Physical Exam Vital signs: Vital Signs 05/03/18 12:00 05/03/18 16:00 05/03/18 20:00 Temperature 97.8 F Pulse Rate 84 74 99 H Respiratory Rate 18 Blood Pressure 99/65 L Pulse Oximetry 97 05/04/18 00:00 05/04/18 04:00 05/04/18 07:29 Temperature Pulse Rate 77 64 72 Respiratory Rate Blood Pressure Pulse Oximetry 05/04/18 08:00 Temperature 97.6 F Pulse Rate 72 Respiratory Rate 16 Blood Pressure 128/70 Pulse Oximetry 98 Intake & Output 05/03/18 05/04/18 05/04/18 18:59 06:59 18:59 Intake Total 358 / 358 Output Total 1250 / 1250 Balance 358 / 358 -1250 / -1250 Weight 57.5 kg Intake: Oral 358 / 358 Output: Urine 1250 / 1250 Other: # Voids 2 Date of Last Bowel Movement 05/02/18 - Constitutional no acute distress (no change clinically.) Results - Labs CBC & Chem 7: 04/22/18 06:45 04/22/18 06:45 Assessment and Plan - Assessment (1) Altered mental status Code(s): R41.82 - Altered mental status, unspecified Status: Chronic Plan: - Plan The patient is a 52 year old female with past medical history which includes Abnormal LFTs, EtOH abuse, chronic back pain, COPD, hypertension, SVT. Patient was brought to [facility] on 12/13 by friend for confusion x 2 weeks weakness and flu like symptoms. Patient was admitted to [facility] from 12/13/17 to 12/18/17 treated for metabolic encephalopathy related to UTI and then DC'd to [facility]. Patient was seen in the emergency department related to altered mentation and anemia . The patient at that time was had hemoglobin of 9.3 and her rectal examination was negative for blood. She was deemed safe for discharge with follow-up as an outpatient. Patient again presented to the ER 12/25/17 for increased altered mentation since falling at her assisted at approximately 8 :15 AM 12/25. The patient has a baseline history of altered mentation that is thought to be related to her history of alcohol abuse and Wernicke's encephalopathy. Psychiatry determined that she is not competent to make her own medical decisions. History of PAT S/P AV ann ablation in the past Jul 2017- HR better 90s - stable BP readings HR up on exam- placed back on telemetry -on metoprolol t0 12.5 mg po bid - will monitor. Altered mental status- Improved cooperative and appropriate -CT head negative, normal TSH, normal RPR, normal ammonia level -Consider Wernike's encephalopathy, continue folic acid and thiamine, continue seizure precautions -Psych declined admission, they feel this is alcohol-related -Continuing Seroquel 100 mg nightly -Psychiatry declined admission, they feel this is alcohol related, they declare patient is not competent to make her own decisions -Case management working on guardianship appointment to obtain accepting facility -Continues to have confusion. Family unwilling to take care of the patient. Generalized weakness- improved, good po - up and ambulating -Continue to encourage physical activity such as walking around the unit -UA negative, no electrolyte imbalance noted Anemia -On admission hgb 7.8, Hct 23.7, MCV 105.1 -Gastroenterology consulted, recommends outpatient follow-up -H&H improved, stable EtOH -Counseled on cessation -Continue vitamin D h/o COPD -Duo nebs as needed Hypertension -Continue beta-nela DVT Prop ambulatory Code Status: Full Code Discussed Condition With: Discharge Planning: awaiting placement.
[2018-05-04] MEDS: QUEtiapine 25 MG Tablet PO SCH (20:28)
[2018-05-05] MEDS: Senna/Docusate Sodium 8.6/50 MG Tablet PO SCH ×2 (09:10→20:37)
[2018-05-05] MEDS: Metoprolol Tartrate 25 MG Tablet PO SCH ×2 (09:10→20:37)
--- NOTE | 2018-05-05 11:46 | P.PNIM ---
Subjective Interval history: in no acute distress. no new complaints. Physical Exam Vital signs: Vital Signs 05/04/18 11:59 05/04/18 16:00 05/04/18 20:00 Temperature 97.8 F Pulse Rate 73 94 H 97 H Respiratory Rate 18 Blood Pressure 99/68 L Pulse Oximetry 97 05/05/18 00:00 05/05/18 04:00 05/05/18 07:30 Temperature Pulse Rate 74 66 66 Respiratory Rate Blood Pressure Pulse Oximetry 05/05/18 08:00 Temperature 97.6 F Pulse Rate 73 Respiratory Rate 18 Blood Pressure 101/59 L Pulse Oximetry 96 Intake & Output 05/04/18 05/05/18 05/05/18 18:59 06:59 18:59 Intake Total 480 / 480 420 / 420 Balance 480 / 480 420 / 420 Weight 58 kg Intake: Oral 480 / 480 420 / 420 Other: # Voids 3 2 Date of Last Bowel Movement 05/03/18 05/03/18 - Constitutional no acute distress - Routine Respiratory Exam Present: CTA bilaterally - Routine Cardiovascular Exam Present: RRR - Routine Abdominal Exam Present: soft - Routine Extremities Exam Comments: no pedal edema. - Routine Neurological Exam Present: alert, oriented X3 Results - Labs CBC & Chem 7: 04/22/18 06:45 04/22/18 06:45 Assessment and Plan - Assessment (1) Altered mental status Code(s): R41.82 - Altered mental status, unspecified Status: Chronic Plan: - Plan The patient is a 52 year old female with past medical history which includes Abnormal LFTs, EtOH abuse, chronic back pain, COPD, hypertension, SVT. Patient was brought to [facility] on 12/13 by friend for confusion x 2 weeks weakness and flu like symptoms. Patient was admitted to [facility] from 12/13/17 to 12/18/17 treated for metabolic encephalopathy related to UTI and then DC'd to [facility]. Patient was seen in the emergency department related to altered mentation and anemia . The patient at that time was had hemoglobin of 9.3 and her rectal examination was negative for blood. She was deemed safe for discharge with follow-up as an outpatient. Patient again presented to the ER 12/25/17 for increased altered mentation since falling at her halfway at approximately 8 :15 AM 12/25. The patient has a baseline history of altered mentation that is thought to be related to her history of alcohol abuse and Wernicke's encephalopathy. Psychiatry determined that she is not competent to make her own medical decisions. History of PAT S/P AV ann ablation in the past Jul 2017- - stable BP readings -on metoprolol t0 12.5 mg po bid - will monitor. Altered mental status- Improved cooperative and appropriate -CT head negative, normal TSH, normal RPR, normal ammonia level -Consider Wernike's encephalopathy, continue folic acid and thiamine, continue seizure precautions -Psych declined admission, they feel this is alcohol-related -Continuing Seroquel 100 mg nightly -Psychiatry declined admission, they feel this is alcohol related, they declare patient is not competent to make her own decisions -Case management working on guardianship appointment to obtain accepting facility -Continues to have confusion. Family unwilling to take care of the patient. Generalized weakness- improved, good po - up and ambulating -Continue to encourage physical activity such as walking around the unit -UA negative, no electrolyte imbalance noted Anemia -On admission hgb 7.8, Hct 23.7, MCV 105.1 -Gastroenterology consulted, recommends outpatient follow-up -H&H improved, stable EtOH -Counseled on cessation -Continue vitamin D h/o COPD -Duo nebs as needed Hypertension -Continue beta-nela DVT Prop ambulatory Code Status: Full Code Discussed Condition With: Discharge Planning: awaiting placement.
[2018-05-05] MEDS: QUEtiapine 25 MG Tablet PO SCH (20:37)
[2018-05-06] MEDS: Metoprolol Tartrate 25 MG Tablet PO SCH ×2 (08:55→21:19)
[2018-05-06] MEDS: Senna/Docusate Sodium 8.6/50 MG Tablet PO SCH ×2 (08:55→21:20)
--- NOTE | 2018-05-06 18:06 | P.PNIM ---
Physical Exam Vital signs: Vital Signs 05/05/18 20:00 05/06/18 00:00 05/06/18 04:00 Temperature 98.0 F Pulse Rate 85 77 75 Respiratory Rate 18 Blood Pressure 110/64 Pulse Oximetry 98 05/06/18 08:00 05/06/18 12:00 Temperature 97.5 F L Pulse Rate 66 69 Respiratory Rate 18 Blood Pressure 103/65 Pulse Oximetry 98 Intake & Output 05/05/18 05/06/18 05/06/18 18:59 06:59 18:59 Intake Total 240 / 240 Balance 240 / 240 Weight 58.2 kg Intake: Oral 240 / 240 Other: # Voids 1 Date of Last Bowel Movement 05/03/18 05/05/18 05/05/18 Results - Labs CBC & Chem 7: 04/22/18 06:45 04/22/18 06:45 Assessment and Plan - Assessment (1) Altered mental status Code(s): R41.82 - Altered mental status, unspecified Status: Chronic Plan: - Plan The patient is a 52 year old female with past medical history which includes Abnormal LFTs, EtOH abuse, chronic back pain, COPD, hypertension, SVT. Patient was brought to [facility] on 12/13 by friend for confusion x 2 weeks weakness and flu like symptoms. Patient was admitted to [facility] from 12/13/17 to 12/18/17 treated for metabolic encephalopathy related to UTI and then DC'd to [facility]. Patient was seen in the emergency department related to altered mentation and anemia . The patient at that time was had hemoglobin of 9.3 and her rectal examination was negative for blood. She was deemed safe for discharge with follow-up as an outpatient. Patient again presented to the ER 12/25/17 for increased altered mentation since falling at her snf at approximately 8 :15 AM 12/25. The patient has a baseline history of altered mentation that is thought to be related to her history of alcohol abuse and Wernicke's encephalopathy. Psychiatry determined that she is not competent to make her own medical decisions. History of PAT S/P AV ann ablation in the past Jul 2017 - HR controlled, stable BP readings -on metoprolol t0 12.5 mg po bid -monitor HR and BP Altered mental status- Improved cooperative and appropriate -CT head negative, normal TSH, normal RPR, normal ammonia level -Consider Wernike's encephalopathy, continue folic acid and thiamine, continue seizure precautions -Psych declined admission, they feel this is alcohol-related -Continuing Seroquel 100 mg nightly -Psychiatry declined admission, they feel this is alcohol related, they declare patient is not competent to make her own decisions -Case management working on guardianship appointment to obtain accepting facility -Continues to have confusion. Family unwilling to take care of the patient. Generalized weakness- improved, good po - up and ambulating -Continue to encourage physical activity such as walking around the unit -UA negative, no electrolyte imbalance noted Anemia -Recent hgb 10.8, Hct 31.4, MCV 87.4 -Gastroenterology consulted, recommends outpatient follow-up -H&H improved, stable EtOH -Counseled on cessation -Continue vitamin D h/o COPD no SOB -Duonebs as needed Hypertension BP controlled -Continue beta-nela DVT Prophylaxis: ambulatory Discharge Planning: Senior Instrumentation Engineer consult: for Placement
[2018-05-06] MEDS: QUEtiapine 25 MG Tablet PO SCH (21:19)
[2018-05-07 07:26] LABS: Hematocrit 33.6 % (35.0-46.0); Hemoglobin 11.2 gm/dL (11.6-15.3); Mean Corpuscular HGB Conc 33.3 % (32.0-36.0); Mean Corpuscular Hemoglobin 29.6 pg (27.0-34.0); Mean Corpuscular Volume 88.7 fL (80.0-100.0); Mean Platelet Volume 9.1 fL (7.0-11.0); Platelet Count 186 th/mm3 (150-450); Red Blood Count 3.78 mil/mm3 (4.00-5.30); White Blood Count 4.3 th/mm3 (4.0-11.0)
[2018-05-07 07:47] LABS: Calcium 10.7 mg/dL (8.5-10.1); Carbon Dioxide 26.1 meq/L (21.0-32.0); Potassium 3.9 meq/L (3.5-5.1)
[2018-05-07] MEDS: Metoprolol Tartrate 25 MG Tablet PO SCH ×2 (08:22→21:02)
[2018-05-07] MEDS: Senna/Docusate Sodium 8.6/50 MG Tablet PO SCH ×2 (08:22→21:02)
--- NOTE | 2018-05-07 18:06 | P.PNIM ---
Subjective Interval history: Follow-up altered mental status, EtOH, anemia, general weakness. Patient laying in bed sleeping, nurse reported patient sleeping all day and awake all night. Patient awakened for assessment, pleasant, answers questions appropriately alert and oriented x2. Patient denies any pain or shortness of breath, denies any headache or dizziness, denies any nausea or vomiting, denies diarrhea or constipation. Patient denies any fever or chills. Nurse denies any patient complaints. Physical Exam Vital signs: Vital Signs 05/06/18 19:50 05/06/18 20:20 05/07/18 00:00 Temperature 97.3 F L Pulse Rate 90 74 86 Respiratory Rate 14 Blood Pressure 102/69 Pulse Oximetry 99 05/07/18 04:00 05/07/18 08:00 05/07/18 12:00 Temperature 97.3 F L Pulse Rate 88 68 59 L Respiratory Rate 17 Blood Pressure 91/67 L Pulse Oximetry 95 Intake & Output 05/06/18 05/07/18 05/07/18 18:59 06:59 18:59 Weight 58 kg Other: Date of Last Bowel Movement 05/05/18 05/05/18 05/05/18 Narrative: GENERAL: Well-developed, well-nourished, alert and oriented x2, in no apparent distress SKIN: Warm and dry. HEAD: Atraumatic. Normocephalic. EYES: Pupils equal and round. No scleral icterus. No injection or drainage. ENT: No nasal bleeding or discharge. Mucous membranes pink and moist. NECK: Trachea midline. No JVD. CARDIOVASCULAR: Regular rate and rhythm. RESPIRATORY: No accessory muscle use. Clear to auscultation. Breath sounds equal bilaterally. GASTROINTESTINAL: Abdomen flat, soft, non-tender, nondistended. Hepatic and splenic margins not palpable. MUSCULOSKELETAL: Extremities without clubbing, cyanosis, or edema. No obvious deformities. NEUROLOGICAL: Awake and alert. No obvious cranial nerve deficits. Motor grossly within normal limits. Moving all all 4 extremities. Normal speech. PSYCHIATRIC: Appropriate mood and affect; insight and judgment unreliable. Results - Labs CBC & Chem 7: 05/07/18 06:45 05/07/18 06:45 Laboratory Results - last 24 hr 05/07/18 05/07/18 06:45 06:45 WBC 4.3 RBC 3.78 L Hgb 11.2 L Hct 33.6 L MCV 88.7 MCH 29.6 MCHC 33.3 RDW 14.0 Plt Count 186 MPV 9.1 Sodium 141 Potassium 3.9 Chloride 104 Carbon Dioxide 26.1 Anion Gap 11 BUN 28 H Creatinine 1.41 H Estimated GFR 39 L Random Glucose 88 Calcium 10.7 H Assessment and Plan - Assessment (1) Altered mental status Code(s): R41.82 - Altered mental status, unspecified Status: Chronic Plan: - Plan The patient is a 52 year old female with past medical history which includes Abnormal LFTs, EtOH abuse, chronic back pain, COPD, hypertension, SVT. Patient was brought to [facility] on 12/13 by friend for confusion x 2 weeks weakness and flu like symptoms. Patient was admitted to [facility] from 12/13/17 to 12/18/17 treated for metabolic encephalopathy related to UTI and then DC'd to [facility]. Patient was seen in the emergency department related to altered mentation and anemia . The patient at that time was had hemoglobin of 9.3 and her rectal examination was negative for blood. She was deemed safe for discharge with follow-up as an outpatient. Patient again presented to the ER 12/25/17 for increased altered mentation since falling at her correction at approximately 8 :15 AM 12/25. The patient has a baseline history of altered mentation that is thought to be related to her history of alcohol abuse and Wernicke's encephalopathy. Psychiatry determined that she is not competent to make her own medical decisions. History of PAT S/P AV ann ablation in the past Jul 2017 - HR controlled, stable BP readings -on metoprolol t0 12.5 mg po bid -monitor HR and BP Altered mental status- Improved cooperative and appropriate -CT head negative, normal TSH, normal RPR, normal ammonia level -Consider Wernike's encephalopathy, continue folic acid and thiamine, continue seizure precautions -Psych declined admission, they feel this is alcohol-related -Continuing Seroquel 100 mg nightly -Psychiatry declined admission, they feel this is alcohol related, they declare patient is not competent to make her own decisions -Case management working on guardianship appointment to obtain accepting facility -Continues to have confusion. Family unwilling to take care of the patient. Generalized weakness- improved, good po - up and ambulating -Continue to encourage physical activity such as walking around the unit -UA negative, no electrolyte imbalance noted Anemia -Recent hgb 10.8, Hct 31.4, MCV 87.4 -Gastroenterology consulted, recommends outpatient follow-up -H&H improved, stable EtOH -Counseled on cessation -Continue vitamin D h/o COPD no SOB -Duonebs as needed Hypertension BP controlled -Continue beta-nela DVT Prophylaxis: ambulatory Discharge Planning: Business Office Director consult: for Placement
[2018-05-07] MEDS: QUEtiapine 25 MG Tablet PO SCH (21:02)
[2018-05-08] MEDS: Metoprolol Tartrate 25 MG Tablet PO SCH ×2 (09:29→20:12)
[2018-05-08] MEDS: Senna/Docusate Sodium 8.6/50 MG Tablet PO SCH ×2 (09:29→20:12)
--- NOTE | 2018-05-08 17:42 | P.PNIM ---
Subjective Interval history: Follow-up altered mental status, EtOH, anemia, general weakness and hypertension. Patient seen and examined laying in bed, pleasant lady, awake alert and oriented x2. Patient denies any pain, chest pain or shortness of breath, denies any headache or dizziness, denies any nausea or vomiting, denies any diarrhea or constipation. Patient denies any complaint. Patient addressed concerned that she wants to go home. Physical Exam Vital signs: Vital Signs 05/07/18 20:00 05/08/18 00:00 05/08/18 04:00 Temperature 97.8 F Pulse Rate 120 H 72 68 Respiratory Rate 14 Blood Pressure 107/85 Pulse Oximetry 97 05/08/18 08:00 05/08/18 12:00 05/08/18 16:00 Temperature 97.4 F L Pulse Rate 58 L 65 98 H Respiratory Rate 16 Blood Pressure 112/58 L Pulse Oximetry 99 Intake & Output 05/07/18 05/08/18 05/08/18 18:59 06:59 18:59 Intake Total 480 / 480 Balance 480 / 480 Weight 57.9 kg Intake: Oral 480 / 480 Other: # Voids 7 Date of Last Bowel Movement 05/05/18 05/05/18 # Bowel Movements 0 Narrative: GENERAL: Well-developed, thin female, alert and oriented x2, in no apparent distress SKIN: Warm and dry. HEAD: Atraumatic. Normocephalic. EYES: Pupils equal and round. No scleral icterus. No injection or drainage. ENT: No nasal bleeding or discharge. Mucous membranes pink and moist. NECK: Trachea midline. No JVD. CARDIOVASCULAR: Regular rate and rhythm. RESPIRATORY: No accessory muscle use. Clear to auscultation. Breath sounds equal bilaterally. GASTROINTESTINAL: Abdomen flat, soft, non-tender, nondistended. Hepatic and splenic margins not palpable. MUSCULOSKELETAL: Extremities without clubbing, cyanosis, or edema. No obvious deformities. NEUROLOGICAL: Awake and alert. No obvious cranial nerve deficits. Motor grossly within normal limits. Moving all all 4 extremities. Normal speech. PSYCHIATRIC: Appropriate mood and affect; insight and judgment unreliable. Cooperative Results - Labs CBC & Chem 7: 05/07/18 06:45 05/07/18 06:45 Assessment and Plan - Assessment (1) Altered mental status Code(s): R41.82 - Altered mental status, unspecified Status: Chronic Plan: - Plan The patient is a 52 year old female with past medical history which includes Abnormal LFTs, EtOH abuse, chronic back pain, COPD, hypertension, SVT. Patient was brought to [facility] on 12/13 by friend for confusion x 2 weeks weakness and flu like symptoms. Patient was admitted to [facility] from 12/13/17 to 12/18/17 treated for metabolic encephalopathy related to UTI and then DC'd to [facility]. Patient was seen in the emergency department related to altered mentation and anemia . The patient at that time was had hemoglobin of 9.3 and her rectal examination was negative for blood. She was deemed safe for discharge with follow-up as an outpatient. Patient again presented to the ER 12/25/17 for increased altered mentation since falling at her snf at approximately 8 :15 AM 12/25. The patient has a baseline history of altered mentation that is thought to be related to her history of alcohol abuse and Wernicke's encephalopathy. Psychiatry determined that she is not competent to make her own medical decisions. History of PAT S/P AV ann ablation in the past Jul 2017 No chest pain, no shortness of breath - HR labile, blood pressure stable in the low side -on metoprolol decreased to 12.5 mg po bid -monitor HR and BP Altered mental status- Improved cooperative and appropriate -CT head negative, normal TSH, normal RPR, normal ammonia level -Consider Wernike's encephalopathy, continue folic acid and thiamine, continue seizure precautions -Psych declined admission, they feel this is alcohol-related -Continuing Seroquel 100 mg nightly -Psychiatry declined admission, they feel this is alcohol related, they declare patient is not competent to make her own decisions -Case management working on guardianship appointment to obtain accepting facility -Continues to have confusion. Family unwilling to take care of the patient. Generalized weakness- improved, good po - up and ambulating -Continue to encourage physical activity such as walking around the unit -UA negative, no electrolyte imbalance noted Anemia -Recent hgb 11.2, Hct 33.6, MCV 87.4 -Gastroenterology consulted, recommends outpatient follow-up -H&H improved, stable - monitor CBC EtOH -Counseled on cessation -Continue vitamin D h/o COPD no SOB -Duonebs as needed Hypertension BP in the low side -metoprolol dose decreased, on for SVT/PAT -monitor BP and HR DVT Prophylaxis: ambulatory Code Status: Full code Discussed Condition With: Discussed with patient and nurse Discharge Planning: Transformer Molder consult: for Placement
[2018-05-08] MEDS: QUEtiapine 25 MG Tablet PO SCH (20:12)
[2018-05-09] MEDS: Senna/Docusate Sodium 8.6/50 MG Tablet PO SCH ×2 (09:55→20:51)
[2018-05-09] MEDS: Metoprolol Tartrate 25 MG Tablet PO SCH ×2 (09:56→20:51)
--- NOTE | 2018-05-09 16:24 | P.PNIM ---
Subjective Interval history: Follow-up altered mental status/EtOH, anemia, general weakness and hypertension. Patient walking around in the room without difficulty moving all extremities, without any pain or discomfort. Patient seen and examined, alert and oriented x2, pleasant lady, denies any pain or shortness of breath. Denies any headache or seeing dizziness, denies any abdominal pain nausea, vomiting, denies any fever or chills. Physical Exam Vital signs: Vital Signs 05/08/18 20:00 05/09/18 00:00 05/09/18 04:00 Temperature 98 F Pulse Rate 101 H 78 77 Respiratory Rate 16 Blood Pressure 105/76 Pulse Oximetry 98 05/09/18 08:00 05/09/18 12:00 Temperature 98.1 F Pulse Rate 71 71 Respiratory Rate 18 Blood Pressure 90/51 L Pulse Oximetry 95 Intake & Output 05/08/18 05/09/18 05/09/18 18:59 06:59 18:59 Intake Total 600 / 600 120 / 120 Balance 600 / 600 120 / 120 Weight 57.3 kg Intake: Oral 600 / 600 120 / 120 Other: # Voids 3 2 Date of Last Bowel Movement 05/05/18 05/05/18 # Bowel Movements 0 0 Narrative: GENERAL: Well-developed, thin female, alert and oriented x2, in no apparent distress SKIN: Warm and dry. HEAD: Atraumatic. Normocephalic. EYES: Pupils equal and round. No scleral icterus. No injection or drainage. ENT: No nasal bleeding or discharge. Mucous membranes pink and moist. NECK: Trachea midline. No JVD. CARDIOVASCULAR: Regular rate and rhythm. RESPIRATORY: No accessory muscle use. Clear to auscultation. Breath sounds equal bilaterally. GASTROINTESTINAL: Abdomen flat, soft, non-tender, nondistended. Hepatic and splenic margins not palpable. MUSCULOSKELETAL: Extremities without clubbing, cyanosis, or edema. No obvious deformities. NEUROLOGICAL: Awake and alert. No obvious cranial nerve deficits. Motor grossly within normal limits. Moving all all 4 extremities. Normal speech. PSYCHIATRIC: Appropriate mood and affect; insight and judgment unreliable. Cooperative Results - Labs CBC & Chem 7: 05/07/18 06:45 05/07/18 06:45 Assessment and Plan - Assessment (1) Altered mental status Code(s): R41.82 - Altered mental status, unspecified Status: Chronic Plan: - Plan The patient is a 52 year old female with past medical history which includes Abnormal LFTs, EtOH abuse, chronic back pain, COPD, hypertension, SVT. Patient was brought to [facility] on 12/13 by friend for confusion x 2 weeks weakness and flu like symptoms. Patient was admitted to [facility] from 12/13/17 to 12/18/17 treated for metabolic encephalopathy related to UTI and then DC'd to [facility]. Patient was seen in the emergency department related to altered mentation and anemia . The patient at that time was had hemoglobin of 9.3 and her rectal examination was negative for blood. She was deemed safe for discharge with follow-up as an outpatient. Patient again presented to the ER 12/25/17 for increased altered mentation since falling at her [place] [facility] at approximately 8 :15 AM 12/25. The patient has a baseline history of altered mentation that is thought to be related to her history of alcohol abuse and Wernicke's encephalopathy. Psychiatry determined that she is not competent to make her own medical decisions. History of PAT S/P AV ann ablation in the past Jul 2017 No chest pain, no shortness of breath - HR labile, blood pressure stable in the low side -on metoprolol decreased to 12.5 mg po bid -monitor HR and BP Altered mental status- Improved cooperative and appropriate -CT head negative, normal TSH, normal RPR, normal ammonia level -Consider Wernike's encephalopathy, continue folic acid and thiamine, continue seizure precautions -Psych declined admission, they feel this is alcohol-related -Continuing Seroquel 100 mg nightly -Psychiatry declined admission, they feel this is alcohol related, they declare patient is not competent to make her own decisions -Case management working on guardianship appointment to obtain accepting facility -Continues to have confusion. Family unwilling to take care of the patient. Generalized weakness- improved, good po - up and ambulating -Continue to encourage physical activity such as walking around the unit -UA negative, no electrolyte imbalance noted Anemia -Recent hgb 11.2, Hct 33.6, MCV 87.4 -Gastroenterology consulted, recommends outpatient follow-up -H&H improved, stable - monitor CBC EtOH -Counseled on cessation -Continue vitamin D h/o COPD no SOB -Duonebs as needed Hypertension BP in the low side -metoprolol dose decreased, on for SVT/PAT -monitor BP and HR -Encourage increase fluid intake DVT Prophylaxis: ambulatory Code Status: full code Discussed Condition With: patient and nurse Discharge Planning: Fitting Room Operator consult: for Placement
[2018-05-09] MEDS: QUEtiapine 25 MG Tablet PO SCH (20:51)
[2018-05-10] MEDS: Senna/Docusate Sodium 8.6/50 MG Tablet PO SCH ×2 (09:17→20:56)
[2018-05-10] MEDS: Metoprolol Tartrate 25 MG Tablet PO SCH ×2 (09:17→20:56)
--- NOTE | 2018-05-10 17:25 | P.PNIM ---
Subjective Interval history: Follow-up altered mental status, EtOH, anemia, general weakness and hypertension. Patient seen and examined laying in bed, denies any discomfort. Patient alert and oriented x2 but pleasant. Patient up moving around in her room and in the hallway with no difficulty. Patient denies any headache or dizziness, denies any chest pain or shortness of breath, denies any nausea or vomiting, denies any diarrhea or constipation. Patient denies any fever or chills. Patient stated she is just waiting for a place to go home. Physical Exam Vital signs: Vital Signs 05/09/18 20:00 05/10/18 00:00 05/10/18 04:00 Temperature 98.1 F Pulse Rate 72 66 70 Respiratory Rate 16 Blood Pressure 113/77 Pulse Oximetry 94 L 05/10/18 08:00 05/10/18 12:00 Temperature 97.7 F Pulse Rate 67 60 Respiratory Rate 20 Blood Pressure 112/64 Pulse Oximetry 100 Intake & Output 05/09/18 05/10/18 05/10/18 18:59 06:59 18:59 Intake Total 480 / 480 420 / 420 Balance 480 / 480 420 / 420 Weight 56.9 kg Intake: Oral 480 / 480 420 / 420 Other: # Voids 2 4 Date of Last Bowel Movement 05/05/18 05/05/18 Narrative: GENERAL: Well-developed, thin female, alert and oriented x2, in no apparent distress SKIN: Warm and dry. HEAD: Atraumatic. Normocephalic. EYES: Pupils equal and round. No scleral icterus. No injection or drainage. ENT: No nasal bleeding or discharge. Mucous membranes pink and moist. NECK: Trachea midline. No JVD. CARDIOVASCULAR: Regular rate and rhythm. RESPIRATORY: No accessory muscle use. Clear to auscultation. Breath sounds equal bilaterally. GASTROINTESTINAL: Abdomen flat, soft, non-tender, nondistended. Hepatic and splenic margins not palpable. MUSCULOSKELETAL: Extremities without clubbing, cyanosis, or edema. No obvious deformities. NEUROLOGICAL: Awake and alert. No obvious cranial nerve deficits. Motor grossly within normal limits. Moving all all 4 extremities. Normal speech. PSYCHIATRIC: Appropriate mood and affect; insight and judgment unreliable. Cooperative Results - Labs CBC & Chem 7: 05/07/18 06:45 05/07/18 06:45 Assessment and Plan - Assessment (1) Altered mental status Code(s): R41.82 - Altered mental status, unspecified Status: Chronic Plan: - Plan The patient is a 52 year old female with past medical history which includes Abnormal LFTs, EtOH abuse, chronic back pain, COPD, hypertension, SVT. Patient was brought to [facility] on 12/13 by friend for confusion x 2 weeks weakness and flu like symptoms. Patient was admitted to [facility] from 12/13/17 to 12/18/17 treated for metabolic encephalopathy related to UTI and then DC'd to [facility]. Patient was seen in the emergency department related to altered mentation and anemia . The patient at that time was had hemoglobin of 9.3 and her rectal examination was negative for blood. She was deemed safe for discharge with follow-up as an outpatient. Patient again presented to the ER 12/25/17 for increased altered mentation since falling [facility] at approximately 8 :15 AM 12/25. The patient has a baseline history of altered mentation that is thought to be related to her history of alcohol abuse and Wernicke's encephalopathy. Psychiatry determined that she is not competent to make her own medical decisions. History of PAT S/P AV ann ablation in the past Jul 2017 No chest pain, no shortness of breath - HR labile, blood pressure stable in the low side -on metoprolol decreased to 12.5 mg po bid -monitor HR and BP Acute kidney injury on chronic -Creatinine 1.41 -Avoid nephrotoxins -Encourage increase fluid intake -monitor BMP Altered mental status- Improved cooperative and appropriate -CT head negative, normal TSH, normal RPR, normal ammonia level -Consider Wernike's encephalopathy, continue folic acid and thiamine, continue seizure precautions -Psych declined admission, they feel this is alcohol-related -Continuing Seroquel 100 mg nightly -Psychiatry declined admission, they feel this is alcohol related, they declare patient is not competent to make her own decisions -Case management working on guardianship appointment to obtain accepting facility -Continues to have confusion. Family unwilling to take care of the patient. Generalized weakness- improved, good po - up and ambulating -Continue to encourage physical activity such as walking around the unit -UA negative, no electrolyte imbalance noted Anemia -Recent hgb 11.2, Hct 33.6, MCV 87.4 -Gastroenterology consulted, recommends outpatient follow-up -H&H improved, stable - monitor CBC EtOH -Counseled on cessation -Continue vitamin D h/o COPD no SOB -Duonebs as needed Hypertension BP in the low side -metoprolol dose decreased, on for SVT/PAT -monitor BP and HR -Encourage increase fluid intake DVT Prophylaxis: ambulatory Code Status: dull code Discussed Condition With: patient and nursing Discharge Planning: Battery Container Inspector consult: for Placement
[2018-05-10] MEDS: QUEtiapine 25 MG Tablet PO SCH (20:56)
[2018-05-11] MEDS: Senna/Docusate Sodium 8.6/50 MG Tablet PO SCH ×2 (08:56→20:15)
[2018-05-11] MEDS: Metoprolol Tartrate 25 MG Tablet PO SCH ×2 (10:13→20:15)
--- NOTE | 2018-05-11 16:04 | P.PNIM ---
Subjective Interval history: Follow-up altered mental status, EtOH, anemia, general weakness and hypertension. Patient lying in bed asleep awaken with confusion patient stated she is confused, did not know where she got, asking why am I here for, thought she had a baby, and acute baby. Discussed with the patient might have been dreaming. Patient stated yes but is a good dream. Patient was able to identify her name and date of , however cannot tell how old she is. And identified she is in the hospital. Reminded patient we are just looking for her placement. And then she remembers and said oh yes. Patient denies any pain, chest pain or shortness of breath, denies any headache or dizziness, denies any abdominal pain, nausea, vomiting, constipation or diarrhea. Patient denies any fever or chills. Physical Exam Vital signs: Vital Signs 05/10/18 16:00 05/10/18 20:00 05/10/18 20:04 Temperature 97.8 F Pulse Rate 66 86 99 H Respiratory Rate 18 Blood Pressure 119/81 Pulse Oximetry 95 05/11/18 00:00 05/11/18 04:06 05/11/18 08:00 Temperature Pulse Rate 69 61 58 L Respiratory Rate Blood Pressure Pulse Oximetry 05/11/18 12:00 Temperature Pulse Rate 78 Respiratory Rate Blood Pressure Pulse Oximetry Intake & Output 05/10/18 05/11/18 05/11/18 18:59 06:59 18:59 Intake Total 120 / 120 680 / 680 Balance 120 / 120 680 / 680 Weight 55.4 kg Intake: Oral 120 / 120 680 / 680 Other: # Voids 2 2 Date of Last Bowel Movement 05/05/18 # Bowel Movements 1 Narrative: GENERAL: Well-developed, thin female, alert and oriented x2, in no apparent distress SKIN: Warm and dry. HEAD: Atraumatic. Normocephalic. EYES: Pupils equal and round. No scleral icterus. No injection or drainage. ENT: No nasal bleeding or discharge. Mucous membranes pink and moist. NECK: Trachea midline. No JVD. CARDIOVASCULAR: Regular rate and rhythm. RESPIRATORY: No accessory muscle use. Clear to auscultation. Breath sounds equal bilaterally. GASTROINTESTINAL: Abdomen flat, soft, non-tender, nondistended. Hepatic and splenic margins not palpable. MUSCULOSKELETAL: Extremities without clubbing, cyanosis, or edema. No obvious deformities. NEUROLOGICAL: Awake and alert. No obvious cranial nerve deficits. Motor grossly within normal limits. Moving all all 4 extremities. Normal speech. PSYCHIATRIC: Appropriate mood and affect; insight and judgment unreliable. Cooperative Results - Labs CBC & Chem 7: 05/07/18 06:45 05/07/18 06:45 Assessment and Plan - Assessment (1) Altered mental status Code(s): R41.82 - Altered mental status, unspecified Status: Chronic Plan: - Plan The patient is a 52 year old female with past medical history which includes Abnormal LFTs, EtOH abuse, chronic back pain, COPD, hypertension, SVT. Patient was brought to [facility] on 12/13 by friend for confusion x 2 weeks weakness and flu like symptoms. Patient was admitted to [facility] from 12/13/17 to 12/18/17 treated for metabolic encephalopathy related to UTI and then DC'd [facility]. Patient was seen in the emergency department related to altered mentation and anemia . The patient at that time was had hemoglobin of 9.3 and her rectal examination was negative for blood. She was deemed safe for discharge with follow-up as an outpatient. Patient again presented to the ER 12/25/17 for increased altered mentation since falling at her detention at approximately 8 :15 AM 12/25. The patient has a baseline history of altered mentation that is thought to be related to her history of alcohol abuse and Wernicke's encephalopathy. Psychiatry determined that she is not competent to make her own medical decisions. History of PAT S/P AV ann ablation in the past Jul 2017 No chest pain, no shortness of breath - HR labile, blood pressure stable in the low side -on metoprolol decreased to 12.5 mg po bid -monitor HR and BP Acute kidney injury on chronic -Creatinine 1.41 -Avoid nephrotoxins -Encourage increase fluid intake -monitor BMP Altered mental status- Improved cooperative and appropriate -CT head negative, normal TSH, normal RPR, normal ammonia level -Consider Wernike's encephalopathy, continue folic acid and thiamine, continue seizure precautions -Psych declined admission, they feel this is alcohol-related -Continuing Seroquel 100 mg nightly -Psychiatry declined admission, they feel this is alcohol related, they declare patient is not competent to make her own decisions -Case management working on guardianship appointment to obtain accepting facility -Continues to have confusion. Family unwilling to take care of the patient. Generalized weakness- improved, good po - up and ambulating -Continue to encourage physical activity such as walking around the unit -UA negative, no electrolyte imbalance noted Anemia -Recent hgb 11.2, Hct 33.6, MCV 87.4 -Gastroenterology consulted, recommends outpatient follow-up -H&H improved, stable - monitor CBC EtOH -Counseled on cessation -Continue vitamin D h/o COPD no SOB -Duonebs as needed Hypertension BP in the low side -metoprolol dose decreased, on for SVT/PAT -monitor BP and HR -Encourage increase fluid intake DVT Prophylaxis: ambulatory Discharge Planning: [employer] consult: for Placement
[2018-05-11] MEDS: QUEtiapine 25 MG Tablet PO SCH (20:14)
[2018-05-12] MEDS: Senna/Docusate Sodium 8.6/50 MG Tablet PO SCH ×2 (08:36→20:58)
[2018-05-12] MEDS: Metoprolol Tartrate 25 MG Tablet PO SCH ×2 (08:36→20:58)
--- NOTE | 2018-05-12 16:21 | P.PNIM ---
Subjective Interval history: Follow-up altered mental status,EtOH, anemia, general weakness and hypertension. Patient seen and examined laying in bed, sleeping awakened for examination. Patient stated she is still confused, patient states that she do not know where she is, able to identify her name and date of breath. Patient denies any pain or shortness of breath denies any headache or dizziness denies any nausea or vomiting denies any diarrhea or constipation. Patient patient's lunch tray found still sitting at the bedside, and breakfast tray in the counter. Discussed with patient increase of p.o. intake, patient stated she will it now. Patient assisted and set up for the trach. Will discuss with nursing to encourage and remind patient at mealtimes. Physical Exam Vital signs: Vital Signs 05/11/18 20:00 05/12/18 00:00 05/12/18 04:00 Temperature 97.7 F Pulse Rate 125 H 71 63 Respiratory Rate 18 Blood Pressure 102/63 Pulse Oximetry 91 L 05/12/18 08:00 05/12/18 12:00 Temperature 97.7 F Pulse Rate 60 62 Respiratory Rate 20 Blood Pressure 94/67 L Pulse Oximetry 97 Intake & Output 05/11/18 05/12/18 05/12/18 18:59 06:59 18:59 Intake Total 480 / 480 Balance 480 / 480 Weight 56 kg Intake: Oral 480 / 480 Other: # Voids 2 3 Date of Last Bowel Movement 05/05/18 # Bowel Movements 0 Narrative: GENERAL: Well-developed, thin female, alert and oriented x2, in no apparent distress SKIN: Warm and dry. HEAD: Atraumatic. Normocephalic. EYES: Pupils equal and round. No scleral icterus. No injection or drainage. ENT: No nasal bleeding or discharge. Mucous membranes pink and moist. NECK: Trachea midline. No JVD. CARDIOVASCULAR: Regular rate and rhythm. RESPIRATORY: No accessory muscle use. Clear to auscultation. Breath sounds equal bilaterally. GASTROINTESTINAL: Abdomen flat, soft, non-tender, nondistended. Hepatic and splenic margins not palpable. MUSCULOSKELETAL: Extremities without clubbing, cyanosis, or edema. No obvious deformities. NEUROLOGICAL: Awake and alert. No obvious cranial nerve deficits. Motor grossly within normal limits. Moving all all 4 extremities. Normal speech. PSYCHIATRIC: Pleasant, appropriate mood and affect; insight and judgment unreliable. Cooperative Results - Labs CBC & Chem 7: 05/07/18 06:45 05/07/18 06:45 Assessment and Plan - Assessment (1) Altered mental status Code(s): R41.82 - Altered mental status, unspecified Status: Chronic Plan: (2) Anemia Code(s): D64.9 - Anemia, unspecified Status: Chronic Plan: - On admission hgb 7.8, Hct 23.7, MCV 105.1 - 12/27/2017 hemoglobin improved 8.4 - 01/07/18 hemoglobin 10.3, Hct 31.2, MCV 101.9 - patient does have hx of ETOH abuse - B12 359 and folic acid 12.2 - Iron 48, total iron-binding capacity 183, percent saturation 26.2 - GI was consulted for possible EGD but unable to get consent so was recommended for outpt followup (3) Tachyarrhythmia Code(s): R00.0 - Tachycardia, unspecified Status: Chronic Plan: - Pt with history of tachyarrhythmia - s/p EPS with ablation of AV re-entry node tachycardia Dr. Vazquze 2016 - Pt started on Metoprolol 25mg po BID with initial improvement in HR - increased metoprolol to 50mg BID on 01/11/18, HR stable (4) COPD (chronic obstructive pulmonary disease) Code(s): J44.9 - Chronic obstructive pulmonary disease, unspecified Status: Chronic Plan: - Does not appear to be in acute exacerbation - duonebs if needed (5) HTN (hypertension) Code(s): I10 - Essential (primary) hypertension Status: Chronic Plan: - Blood pressure was elevated during admission - Pt was initially started on amlodipine 5 mg p.o. daily but with tachyarrhythmia the Norvasc was stopped and Metoprolol added - BP has been stable. 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 Patient was brought to [facility] on 12/13 by friend for confusion x 2 weeks weakness and flu like symptoms. Patient was admitted to [facility] from 12/13/17 to 12/18/17 treated for metabolic encephalopathy related to UTI and then DC'd to [facility]. Patient was seen in the emergency department related to altered mentation and anemia . The patient at that time was had hemoglobin of 9.3 and her rectal examination was negative for blood. She was deemed safe for discharge with follow-up as an outpatient. Patient again presented to the ER 12/25/17 for increased altered mentation since falling at her [facility] at approximately 8 :15 AM 12/25. The patient has a baseline history of altered mentation that is thought to be related to her history of alcohol abuse and Wernicke's encephalopathy. Psychiatry determined that she is not competent to make her own medical decisions. History of PAT /Hypertension S/P AV ann ablation in the past Jul 2017 No chest pain, no shortness of breath - HR improving, blood pressure stable in the low side -Continue on low-dose metoprolol 12.5 mg po bid -monitor HR and BP Acute kidney injury on chronic -Creatinine 1.41 -Avoid nephrotoxins -Encourage increase fluid intake -monitor BMP Altered mental status- Improved cooperative and appropriate -CT head negative, normal TSH, normal RPR, normal ammonia level -Consider Wernike's encephalopathy, continue folic acid and thiamine, continue seizure precautions -Psych declined admission, they feel this is alcohol-related -Continuing Seroquel 100 mg nightly -Psychiatry declined admission, they feel this is alcohol related, they declare patient is not competent to make her own decisions -Case management working on guardianship appointment to obtain accepting facility -Continues to have confusion. Family unwilling to take care of the patient. Generalized weakness - improved, up and ambulating -Continue to encourage physical activity such as walking around the unit -UA negative, no electrolyte imbalance noted -Staff to encourage and remind patient at mealtimes to increase p.o. intake Anemia -Recent hgb 11.2, Hct 33.6, MCV 87.4 -Gastroenterology consulted, recommends outpatient follow-up -H&H improved, stable - monitor CBC EtOH -Counseled on cessation -Continue vitamin D h/o COPD no SOB -Duonebs as needed DVT Prophylaxis: ambulatory Code Status: Full code Discussed Condition With: Patient and nursing Discharge Planning: [employer] consult: for Placement (2) Anemia Qualifiers: Anemia type: unspecified type Qualified Code(s): D64.9 - Anemia, unspecified
[2018-05-12] MEDS: QUEtiapine 25 MG Tablet PO SCH (20:58)
[2018-05-13] MEDS: Metoprolol Tartrate 25 MG Tablet PO SCH ×2 (08:27→20:37)
[2018-05-13] MEDS: Senna/Docusate Sodium 8.6/50 MG Tablet PO SCH ×2 (08:28→20:37)
--- NOTE | 2018-05-13 15:24 | P.PNIM ---
Subjective Interval history: 10- Follow-up altered mental status,EtOH, anemia, general weakness and hypertension. Patient seen and examined laying in bed, sleeping awakened for examination. Patient stated she is still confused, patient states that she do not know where she is, able to identify her name and date of breath. Patient denies any pain or shortness of breath denies any headache or dizziness denies any nausea or vomiting denies any diarrhea or constipation. Patient patient's lunch tray found still sitting at the bedside, and breakfast tray in the counter. Discussed with patient increase of p.o. intake, patient stated she will it now. Patient assisted and set up for the trach. Will discuss with nursing to encourage and remind patient at mealtimes. 10 NO NEW COMPLAINTS AWAIT PLACEMENT NO NEW ISSUES DW RN AND PT AND CM Physical Exam Vital signs: Vital Signs 05/12/18 16:00 05/12/18 20:00 05/13/18 00:00 Temperature 97.9 F Pulse Rate 64 73 74 Respiratory Rate 18 Blood Pressure 98/60 L Pulse Oximetry 96 05/13/18 04:00 05/13/18 08:00 Temperature 98.0 F Pulse Rate 63 65 Respiratory Rate 16 Blood Pressure 110/56 L Pulse Oximetry 96 Intake & Output 05/12/18 05/13/18 05/13/18 18:59 06:59 18:59 Intake Total 120 / 120 Balance 120 / 120 Weight 57.1 kg Intake: Oral 120 / 120 Other: # Voids 2 Date of Last Bowel Movement 05/05/18 05/12/18 # Bowel Movements 0 Narrative: GENERAL: Well-developed, thin female, alert and oriented x2, in no apparent distress SKIN: Warm and dry. HEAD: Atraumatic. Normocephalic. EYES: Pupils equal and round. No scleral icterus. No injection or drainage. ENT: No nasal bleeding or discharge. Mucous membranes pink and moist. NECK: Trachea midline. No JVD. CARDIOVASCULAR: Regular rate and rhythm. RESPIRATORY: No accessory muscle use. Clear to auscultation. Breath sounds equal bilaterally. GASTROINTESTINAL: Abdomen flat, soft, non-tender, nondistended. Hepatic and splenic margins not palpable. MUSCULOSKELETAL: Extremities without clubbing, cyanosis, or edema. No obvious deformities. NEUROLOGICAL: Awake and alert. No obvious cranial nerve deficits. Motor grossly within normal limits. Moving all all 4 extremities. Normal speech. PSYCHIATRIC: Pleasant, appropriate mood and affect; insight and judgment unreliable. Cooperative Results - Labs CBC & Chem 7: 05/07/18 06:45 05/07/18 06:45 Assessment and Plan - Assessment (1) Altered mental status Code(s): R41.82 - Altered mental status, unspecified Status: Chronic Plan: .. (2) Anemia Code(s): D64.9 - Anemia, unspecified Status: Chronic Plan: .. (3) Tachyarrhythmia Code(s): R00.0 - Tachycardia, unspecified Status: Chronic Plan: .. (4) COPD (chronic obstructive pulmonary disease) Code(s): J44.9 - Chronic obstructive pulmonary disease, unspecified Status: Chronic Plan: .. (5) HTN (hypertension) Code(s): I10 - Essential (primary) hypertension Status: Chronic Plan: .. 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 Patient was brought to [facility] on 12/13 by friend for confusion x 2 weeks weakness and flu like symptoms. Patient was admitted to [facility] from 12/13/17 to 12/18/17 treated for metabolic encephalopathy related to UTI and then DC'd to [facility]. Patient was seen in the emergency department related to altered mentation and anemia . The patient at that time was had hemoglobin of 9.3 and her rectal examination was negative for blood. She was deemed safe for discharge with follow-up as an outpatient. Patient again presented to the ER 12/25/17 for increased altered mentation since falling at her [facility] at approximately 8 :15 AM 12/25. The patient has a baseline history of altered mentation that is thought to be related to her history of alcohol abuse and Wernicke's encephalopathy. Psychiatry determined that she is not competent to make her own medical decisions. History of PAT /Hypertension S/P AV ann ablation in the past Jul 2017 No chest pain, no shortness of breath - HR improving, blood pressure stable in the low side -Continue on low-dose metoprolol 12.5 mg po bid -monitor HR and BP Acute kidney injury on chronic -Creatinine 1.41 -Avoid nephrotoxins -Encourage increase fluid intake -monitor BMP Altered mental status- Improved cooperative and appropriate -CT head negative, normal TSH, normal RPR, normal ammonia level -Consider Wernike's encephalopathy, continue folic acid and thiamine, continue seizure precautions -Psych declined admission, they feel this is alcohol-related -Continuing Seroquel 100 mg nightly -Psychiatry declined admission, they feel this is alcohol related, they declare patient is not competent to make her own decisions -Case management working on guardianship appointment to obtain accepting facility -Continues to have confusion. Family unwilling to take care of the patient. Generalized weakness - improved, up and ambulating -Continue to encourage physical activity such as walking around the unit -UA negative, no electrolyte imbalance noted -Staff to encourage and remind patient at mealtimes to increase p.o. intake Anemia -Recent hgb 11.2, Hct 33.6, MCV 87.4 -Gastroenterology consulted, recommends outpatient follow-up -H&H improved, stable - monitor CBC EtOH -Counseled on cessation -Continue vitamin D h/o COPD no SOB -Duonebs as needed DVT Prophylaxis: ambulatory Code Status: FULL CODE Discussed Condition With: RN AND PT AND CM Discharge Planning: SAFE PLACEMENT (2) Anemia Qualifiers: Anemia type: unspecified type Qualified Code(s): D64.9 - Anemia, unspecified
[2018-05-13] MEDS: QUEtiapine 25 MG Tablet PO SCH (20:37)
[2018-05-14] MEDS: Senna/Docusate Sodium 8.6/50 MG Tablet PO SCH ×2 (12:30→21:48)
[2018-05-14] MEDS: Metoprolol Tartrate 25 MG Tablet PO SCH ×2 (12:30→21:47)
--- NOTE | 2018-05-14 15:15 | P.PNIM ---
Subjective Interval history: 10-7 Follow-up altered mental status,EtOH, anemia, general weakness and hypertension. Patient seen and examined laying in bed, sleeping awakened for examination. Patient stated she is still confused, patient states that she do not know where she is, able to identify her name and date of breath. Patient denies any pain or shortness of breath denies any headache or dizziness denies any nausea or vomiting denies any diarrhea or constipation. Patient patient's lunch tray found still sitting at the bedside, and breakfast tray in the counter. Discussed with patient increase of p.o. intake, patient stated she will it now. Patient assisted and set up for the trach. Will discuss with nursing to encourage and remind patient at mealtimes. 10-8 NO NEW COMPLAINTS AWAIT PLACEMENT NO NEW ISSUES DW RN AND PT AND CM 10-9 NO NEW ISSUES NO COMPLAINTS AWAIT SAFE PLACEMENT DW RN AND PT AND CM Physical Exam Vital signs: Vital Signs 05/13/18 16:00 05/13/18 20:00 05/14/18 00:00 Temperature 98.1 F Pulse Rate 83 94 H 70 Respiratory Rate 17 Blood Pressure 111/66 Pulse Oximetry 98 05/14/18 04:00 05/14/18 08:00 05/14/18 12:00 Temperature 97.5 F L 97.5 F L Pulse Rate 70 74 83 Respiratory Rate 23 23 Blood Pressure 117/61 117/61 Pulse Oximetry 98 98 Intake & Output 05/13/18 05/14/18 05/14/18 18:59 06:59 18:59 Intake Total 480 / 480 Balance 480 / 480 Weight 57.3 kg Intake: Oral 480 / 480 Other: # Voids 2 Date of Last Bowel Movement 05/12/18 Narrative: GENERAL: Well-developed, thin female, alert and oriented x2, in no apparent distress SKIN: Warm and dry. HEAD: Atraumatic. Normocephalic. EYES: Pupils equal and round. No scleral icterus. No injection or drainage. ENT: No nasal bleeding or discharge. Mucous membranes pink and moist. NECK: Trachea midline. No JVD. CARDIOVASCULAR: Regular rate and rhythm. RESPIRATORY: No accessory muscle use. Clear to auscultation. Breath sounds equal bilaterally. GASTROINTESTINAL: Abdomen flat, soft, non-tender, nondistended. Hepatic and splenic margins not palpable. MUSCULOSKELETAL: Extremities without clubbing, cyanosis, or edema. No obvious deformities. NEUROLOGICAL: Awake and alert. No obvious cranial nerve deficits. Motor grossly within normal limits. Moving all all 4 extremities. Normal speech. PSYCHIATRIC: Pleasant, appropriate mood and affect; insight and judgment unreliable. Cooperative Results - Labs CBC & Chem 7: 05/07/18 06:45 05/07/18 06:45 Assessment and Plan - Assessment (1) Altered mental status Code(s): R41.82 - Altered mental status, unspecified Status: Chronic Plan: .. (2) Anemia Code(s): D64.9 - Anemia, unspecified Status: Chronic Plan: .. (3) Tachyarrhythmia Code(s): R00.0 - Tachycardia, unspecified Status: Chronic Plan: .. (4) COPD (chronic obstructive pulmonary disease) Code(s): J44.9 - Chronic obstructive pulmonary disease, unspecified Status: Chronic Plan: .. (5) HTN (hypertension) Code(s): I10 - Essential (primary) hypertension Status: Chronic Plan: .. 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 Patient was brought to [facility] on 12/13 by friend for confusion x 2 weeks weakness and flu like symptoms. Patient was admitted to [facility] from 12/13/17 to 12/18/17 treated for metabolic encephalopathy related to UTI and then DC'd to [facility]. Patient was seen in the emergency department related to altered mentation and anemia . The patient at that time was had hemoglobin of 9.3 and her rectal examination was negative for blood. She was deemed safe for discharge with follow-up as an outpatient. Patient again presented to the ER 12/25/17 for increased altered mentation since falling at her [facility] at approximately 8 :15 AM 12/25. The patient has a baseline history of altered mentation that is thought to be related to her history of alcohol abuse and Wernicke's encephalopathy. Psychiatry determined that she is not competent to make her own medical decisions. History of PAT /Hypertension S/P AV ann ablation in the past Jul 2017 No chest pain, no shortness of breath - HR improving, blood pressure stable in the low side -Continue on low-dose metoprolol 12.5 mg po bid -monitor HR and BP Acute kidney injury on chronic -Creatinine 1.41 -Avoid nephrotoxins -Encourage increase fluid intake -monitor BMP Altered mental status- Improved cooperative and appropriate -CT head negative, normal TSH, normal RPR, normal ammonia level -Consider Wernike's encephalopathy, continue folic acid and thiamine, continue seizure precautions -Psych declined admission, they feel this is alcohol-related -Continuing Seroquel 100 mg nightly -Psychiatry declined admission, they feel this is alcohol related, they declare patient is not competent to make her own decisions -Case management working on guardianship appointment to obtain accepting facility -Continues to have confusion. Family unwilling to take care of the patient. Generalized weakness - improved, up and ambulating -Continue to encourage physical activity such as walking around the unit -UA negative, no electrolyte imbalance noted -Staff to encourage and remind patient at mealtimes to increase p.o. intake Anemia -Recent hgb 11.2, Hct 33.6, MCV 87.4 -Gastroenterology consulted, recommends outpatient follow-up -H&H improved, stable - monitor CBC EtOH -Counseled on cessation -Continue vitamin D h/o COPD no SOB -Duonebs as needed DVT Prophylaxis: ambulatory Code Status: FULL CODE Discussed Condition With: RN AND PT AND CM Discharge Planning: SAFE PLACEMENT (2) Anemia Qualifiers: Anemia type: unspecified type Qualified Code(s): D64.9 - Anemia, unspecified
[2018-05-14] MEDS: QUEtiapine 25 MG Tablet PO SCH (21:48)
--- NOTE | 2018-05-15 14:18 | P.PNIM ---
Subjective Interval history: 10-7 Follow-up altered mental status,EtOH, anemia, general weakness and hypertension. Patient seen and examined laying in bed, sleeping awakened for examination. Patient stated she is still confused, patient states that she do not know where she is, able to identify her name and date of breath. Patient denies any pain or shortness of breath denies any headache or dizziness denies any nausea or vomiting denies any diarrhea or constipation. Patient patient's lunch tray found still sitting at the bedside, and breakfast tray in the counter. Discussed with patient increase of p.o. intake, patient stated she will it now. Patient assisted and set up for the trach. Will discuss with nursing to encourage and remind patient at mealtimes. 10-8 NO NEW COMPLAINTS AWAIT PLACEMENT NO NEW ISSUES DW RN AND PT AND CM 10-9 NO NEW ISSUES NO COMPLAINTS AWAIT SAFE PLACEMENT DW RN AND PT AND CM 10-10 [place] NO NEW ISSUES AWAIT SAFE PLACEMENT DW RN AND PT AND CM Physical Exam Vital signs: Vital Signs 05/14/18 16:00 05/14/18 20:00 05/15/18 00:00 Temperature 97.8 F Pulse Rate 86 72 75 Respiratory Rate 20 Blood Pressure 99/66 L Pulse Oximetry 97 05/15/18 04:00 05/15/18 08:00 05/15/18 12:00 Temperature 97.9 F Pulse Rate 80 85 96 H Respiratory Rate 20 Blood Pressure 101/63 Pulse Oximetry 96 Intake & Output 05/14/18 05/15/18 05/15/18 18:59 06:59 18:59 Intake Total 960 / 960 Balance 960 / 960 Weight 56.6 kg Intake: Oral 960 / 960 Other: # Voids 4 Results - Labs CBC & Chem 7: 05/07/18 06:45 05/07/18 06:45 Assessment and Plan - Assessment (1) Altered mental status Code(s): R41.82 - Altered mental status, unspecified Status: Chronic Plan: .. (2) Anemia Code(s): D64.9 - Anemia, unspecified Status: Chronic Plan: .. (3) Tachyarrhythmia Code(s): R00.0 - Tachycardia, unspecified Status: Chronic Plan: .. (4) COPD (chronic obstructive pulmonary disease) Code(s): J44.9 - Chronic obstructive pulmonary disease, unspecified Status: Chronic Plan: .. (5) HTN (hypertension) Code(s): I10 - Essential (primary) hypertension Status: Chronic Plan: .. 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 Patient was brought to [facility] on 12/13 by friend for confusion x 2 weeks weakness and flu like symptoms. Patient was admitted to [facility] from 12/13/17 to 12/18/17 treated for metabolic encephalopathy related to UTI and then DC'd to [facility]. Patient was seen in the emergency department related to altered mentation and anemia . The patient at that time was had hemoglobin of 9.3 and her rectal examination was negative for blood. She was deemed safe for discharge with follow-up as an outpatient. Patient again presented to the ER 12/25/17 for increased altered mentation since falling at her [facility] at approximately 8 :15 AM 12/25. The patient has a baseline history of altered mentation that is thought to be related to her history of alcohol abuse and Wernicke's encephalopathy. Psychiatry determined that she is not competent to make her own medical decisions. History of PAT /Hypertension S/P AV ann ablation in the past Jul 2017 No chest pain, no shortness of breath - HR improving, blood pressure stable in the low side -Continue on low-dose metoprolol 12.5 mg po bid -monitor HR and BP Acute kidney injury on chronic -Creatinine 1.41 -Avoid nephrotoxins -Encourage increase fluid intake -monitor BMP Altered mental status- Improved cooperative and appropriate -CT head negative, normal TSH, normal RPR, normal ammonia level -Consider Wernike's encephalopathy, continue folic acid and thiamine, continue seizure precautions -Psych declined admission, they feel this is alcohol-related -Continuing Seroquel 100 mg nightly -Psychiatry declined admission, they feel this is alcohol related, they declare patient is not competent to make her own decisions -Case management working on guardianship appointment to obtain accepting facility -Continues to have confusion. Family unwilling to take care of the patient. Generalized weakness - improved, up and ambulating -Continue to encourage physical activity such as walking around the unit -UA negative, no electrolyte imbalance noted -Staff to encourage and remind patient at mealtimes to increase p.o. intake Anemia -Recent hgb 11.2, Hct 33.6, MCV 87.4 -Gastroenterology consulted, recommends outpatient follow-up -H&H improved, stable - monitor CBC EtOH -Counseled on cessation -Continue vitamin D h/o COPD no SOB -Duonebs as needed DVT Prophylaxis: ambulatory Discharge Planning: SAFE PLACEMENT (2) Anemia Qualifiers: Anemia type: unspecified type Qualified Code(s): D64.9 - Anemia, unspecified
[2018-05-15] MEDS: Metoprolol Tartrate 25 MG Tablet PO SCH ×2 (14:40→20:20)
[2018-05-15] MEDS: Senna/Docusate Sodium 8.6/50 MG Tablet PO SCH ×2 (14:40→20:20)
[2018-05-15] MEDS: QUEtiapine 25 MG Tablet PO SCH (20:21)
[2018-05-16] MEDS: Metoprolol Tartrate 25 MG Tablet PO SCH ×2 (09:21→20:55)
[2018-05-16] MEDS: Senna/Docusate Sodium 8.6/50 MG Tablet PO SCH ×2 (09:22→20:55)
--- NOTE | 2018-05-16 11:40 | P.PNIM ---
Subjective Interval history: 10-7 Follow-up altered mental status,EtOH, anemia, general weakness and hypertension. Patient seen and examined laying in bed, sleeping awakened for examination. Patient stated she is still confused, patient states that she do not know where she is, able to identify her name and date of breath. Patient denies any pain or shortness of breath denies any headache or dizziness denies any nausea or vomiting denies any diarrhea or constipation. Patient patient's lunch tray found still sitting at the bedside, and breakfast tray in the counter. Discussed with patient increase of p.o. intake, patient stated she will it now. Patient assisted and set up for the trach. Will discuss with nursing to encourage and remind patient at mealtimes. 10-8 NO NEW COMPLAINTS AWAIT PLACEMENT NO NEW ISSUES DW RN AND PT AND CM 10-9 NO NEW ISSUES NO COMPLAINTS AWAIT SAFE PLACEMENT DW RN AND PT AND CM 10-10 [place] NO NEW ISSUES AWAIT SAFE PLACEMENT DW RN AND PT AND CM 10-11 NO NEW ISSUES DW RN AND PT AND CM Physical Exam Vital signs: Vital Signs 05/15/18 12:00 05/15/18 16:00 05/15/18 19:51 Temperature Pulse Rate 96 H 72 97 H Respiratory Rate Blood Pressure Pulse Oximetry 05/15/18 20:00 05/16/18 00:00 05/16/18 03:49 Temperature 97.4 F L Pulse Rate 90 86 67 Respiratory Rate 19 Blood Pressure 102/68 Pulse Oximetry 99 05/16/18 08:00 Temperature 97.5 F L Pulse Rate 69 Respiratory Rate 18 Blood Pressure 91/54 L Pulse Oximetry 97 Intake & Output 05/15/18 05/16/18 05/16/18 18:59 06:59 18:59 Intake Total 380 / 380 240 / 240 Balance 380 / 380 240 / 240 Weight 58 kg Intake: Oral 380 / 380 240 / 240 Other: # Voids 6 3 # Bowel Movements 1 0 Narrative: GENERAL: Well-developed, thin female, alert and oriented x2, in no apparent distress SKIN: Warm and dry. HEAD: Atraumatic. Normocephalic. EYES: Pupils equal and round. No scleral icterus. No injection or drainage. ENT: No nasal bleeding or discharge. Mucous membranes pink and moist. NECK: Trachea midline. No JVD. CARDIOVASCULAR: Regular rate and rhythm. RESPIRATORY: No accessory muscle use. Clear to auscultation. Breath sounds equal bilaterally. GASTROINTESTINAL: Abdomen flat, soft, non-tender, nondistended. Hepatic and splenic margins not palpable. MUSCULOSKELETAL: Extremities without clubbing, cyanosis, or edema. No obvious deformities. NEUROLOGICAL: Awake and alert. No obvious cranial nerve deficits. Motor grossly within normal limits. Moving all all 4 extremities. Normal speech. PSYCHIATRIC: Pleasant, appropriate mood and affect; insight and judgment unreliable. Cooperative Results - Labs CBC & Chem 7: 05/07/18 06:45 05/07/18 06:45 Assessment and Plan - Assessment (1) Altered mental status Code(s): R41.82 - Altered mental status, unspecified Status: Chronic Plan: .. (2) Anemia Code(s): D64.9 - Anemia, unspecified Status: Chronic Plan: .. (3) Tachyarrhythmia Code(s): R00.0 - Tachycardia, unspecified Status: Chronic Plan: .. (4) COPD (chronic obstructive pulmonary disease) Code(s): J44.9 - Chronic obstructive pulmonary disease, unspecified Status: Chronic Plan: .. (5) HTN (hypertension) Code(s): I10 - Essential (primary) hypertension Status: Chronic Plan: .. 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 Patient was brought to [facility] on 12/13 by friend for confusion x 2 weeks weakness and flu like symptoms. Patient was admitted to [facility] from 12/13/17 to 12/18/17 treated for metabolic encephalopathy related to UTI and then DC'd to [facility]. Patient was seen in the emergency department related to altered mentation and anemia . The patient at that time was had hemoglobin of 9.3 and her rectal examination was negative for blood. She was deemed safe for discharge with follow-up as an outpatient. Patient again presented to the ER 12/25/17 for increased altered mentation since [facility] at approximately 8 :15 AM 12/25. The patient has a baseline history of altered mentation that is thought to be related to her history of alcohol abuse and Wernicke's encephalopathy. Psychiatry determined that she is not competent to make her own medical decisions. History of PAT /Hypertension S/P AV ann ablation in the past Jul 2017 No chest pain, no shortness of breath - HR improving, blood pressure stable in the low side -Continue on low-dose metoprolol 12.5 mg po bid -monitor HR and BP Acute kidney injury on chronic -Creatinine 1.41 -Avoid nephrotoxins -Encourage increase fluid intake -monitor BMP Altered mental status- Improved cooperative and appropriate -CT head negative, normal TSH, normal RPR, normal ammonia level -Consider Wernike's encephalopathy, continue folic acid and thiamine, continue seizure precautions -Psych declined admission, they feel this is alcohol-related -Continuing Seroquel 100 mg nightly -Psychiatry declined admission, they feel this is alcohol related, they declare patient is not competent to make her own decisions -Case management working on guardianship appointment to obtain accepting facility -Continues to have confusion. Family unwilling to take care of the patient. Generalized weakness - improved, up and ambulating -Continue to encourage physical activity such as walking around the unit -UA negative, no electrolyte imbalance noted -Staff to encourage and remind patient at mealtimes to increase p.o. intake Anemia -Recent hgb 11.2, Hct 33.6, MCV 87.4 -Gastroenterology consulted, recommends outpatient follow-up -H&H improved, stable - monitor CBC EtOH -Counseled on cessation -Continue vitamin D h/o COPD no SOB -Duonebs as needed DVT Prophylaxis: ambulatory Code Status: FULL CODE Discussed Condition With: CM AND RN AND PT Discharge Planning: SAFE PLACEMENT (2) Anemia Qualifiers: Anemia type: unspecified type Qualified Code(s): D64.9 - Anemia, unspecified
[2018-05-16] MEDS: QUEtiapine 25 MG Tablet PO SCH (20:55)
[2018-05-17] MEDS: Senna/Docusate Sodium 8.6/50 MG Tablet PO SCH ×2 (08:50→21:24)
[2018-05-17] MEDS: Metoprolol Tartrate 25 MG Tablet PO SCH ×2 (08:51→21:24)
--- NOTE | 2018-05-17 12:40 | P.PNIM ---
Subjective Interval history: 10-7 Follow-up altered mental status,EtOH, anemia, general weakness and hypertension. Patient seen and examined laying in bed, sleeping awakened for examination. Patient stated she is still confused, patient states that she do not know where she is, able to identify her name and date of breath. Patient denies any pain or shortness of breath denies any headache or dizziness denies any nausea or vomiting denies any diarrhea or constipation. Patient patient's lunch tray found still sitting at the bedside, and breakfast tray in the counter. Discussed with patient increase of p.o. intake, patient stated she will it now. Patient assisted and set up for the trach. Will discuss with nursing to encourage and remind patient at mealtimes. 10-8 NO NEW COMPLAINTS AWAIT PLACEMENT NO NEW ISSUES DW RN AND PT AND CM 10-9 NO NEW ISSUES NO COMPLAINTS AWAIT SAFE PLACEMENT DW RN AND PT AND CM 10-10 [place] NO NEW ISSUES AWAIT SAFE PLACEMENT DW RN AND PT AND CM 10-11 NO NEW ISSUES DW RN AND PT AND CM 10-12 AWAIT SAFE PLACEMENT [place] TODAY DW RN AND PT AND CM Physical Exam Vital signs: Vital Signs 05/16/18 16:00 05/16/18 20:00 05/17/18 00:00 Temperature 97.4 F L Pulse Rate 65 77 85 Respiratory Rate 18 Blood Pressure 112/62 Pulse Oximetry 97 05/17/18 04:00 05/17/18 08:00 Temperature 97.4 F L Pulse Rate 70 64 Respiratory Rate 20 Blood Pressure 95/56 L Pulse Oximetry 99 Intake & Output 05/16/18 05/17/18 05/17/18 18:59 06:59 18:59 Intake Total 480 / 480 Balance 480 / 480 Weight 58.1 kg Intake: Oral 480 / 480 Other: # Voids 4 Date of Last Bowel Movement 05/16/18 05/16/18 Narrative: GENERAL: Well-developed, thin female, alert and oriented x2, in no apparent distress SKIN: Warm and dry. HEAD: Atraumatic. Normocephalic. EYES: Pupils equal and round. No scleral icterus. No injection or drainage. ENT: No nasal bleeding or discharge. Mucous membranes pink and moist. NECK: Trachea midline. No JVD. CARDIOVASCULAR: Regular rate and rhythm. RESPIRATORY: No accessory muscle use. Clear to auscultation. Breath sounds equal bilaterally. GASTROINTESTINAL: Abdomen flat, soft, non-tender, nondistended. Hepatic and splenic margins not palpable. MUSCULOSKELETAL: Extremities without clubbing, cyanosis, or edema. No obvious deformities. NEUROLOGICAL: Awake and alert. No obvious cranial nerve deficits. Motor grossly within normal limits. Moving all all 4 extremities. Normal speech. PSYCHIATRIC: Pleasant, appropriate mood and affect; insight and judgment unreliable. Cooperative Results - Labs CBC & Chem 7: 05/07/18 06:45 05/07/18 06:45 Assessment and Plan - Assessment (1) Altered mental status Code(s): R41.82 - Altered mental status, unspecified Status: Chronic Plan: .. (2) Anemia Code(s): D64.9 - Anemia, unspecified Status: Chronic Plan: .. (3) Tachyarrhythmia Code(s): R00.0 - Tachycardia, unspecified Status: Chronic Plan: .. (4) COPD (chronic obstructive pulmonary disease) Code(s): J44.9 - Chronic obstructive pulmonary disease, unspecified Status: Chronic Plan: .. (5) HTN (hypertension) Code(s): I10 - Essential (primary) hypertension Status: Chronic Plan: .. 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 Patient was brought to [facility] on 12/13 by friend for confusion x 2 weeks weakness and flu like symptoms. Patient was admitted to [facility] from 12/13/17 to 12/18/17 treated for metabolic encephalopathy related to UTI and then DC'd to [facility]. Patient was seen in the emergency department related to altered mentation and anemia . The patient at that time was had hemoglobin of 9.3 and her rectal examination was negative for blood. She was deemed safe for discharge with follow-up as an outpatient. Patient again presented to the ER 12/25/17 for increased altered mentation since falling at her [facility] at approximately 8 :15 AM 12/25. The patient has a baseline history of altered mentation that is thought to be related to her history of alcohol abuse and Wernicke's encephalopathy. Psychiatry determined that she is not competent to make her own medical decisions. History of PAT /Hypertension S/P AV ann ablation in the past Jul 2017 No chest pain, no shortness of breath - HR improving, blood pressure stable in the low side -Continue on low-dose metoprolol 12.5 mg po bid -monitor HR and BP Acute kidney injury on chronic -Creatinine 1.41 -Avoid nephrotoxins -Encourage increase fluid intake -monitor BMP Altered mental status- Improved cooperative and appropriate -CT head negative, normal TSH, normal RPR, normal ammonia level -Consider Wernicke's encephalopathy, continue folic acid and thiamine, continue seizure precautions -Psych declined admission, they feel this is alcohol-related -Continuing Seroquel 100 mg nightly -Psychiatry declined admission, they feel this is alcohol related, they declare patient is not competent to make her own decisions -Case management working on guardianship appointment to obtain accepting facility -Continues to have confusion. Family unwilling to take care of the patient. Generalized weakness - improved, up and ambulating -Continue to encourage physical activity such as walking around the unit -UA negative, no electrolyte imbalance noted -Staff to encourage and remind patient at mealtimes to increase p.o. intake Anemia -Recent hgb 11.2, Hct 33.6, MCV 87.4 -Gastroenterology consulted, recommends outpatient follow-up -H&H improved, stable - monitor CBC EtOH -Counseled on cessation -Continue vitamin D h/o COPD no SOB -Duonebs as needed DVT Prophylaxis: ambulatory Code Status: FULL CODE Discussed Condition With: RN AND PT AND CM Discharge Planning: SAFE PLACEMENT (2) Anemia Qualifiers: Anemia type: unspecified type Qualified Code(s): D64.9 - Anemia, unspecified
[2018-05-17] MEDS: QUEtiapine 25 MG Tablet PO SCH (21:25)
[2018-05-18] MEDS: Metoprolol Tartrate 25 MG Tablet PO SCH ×2 (08:33→21:57)
[2018-05-18] MEDS: Senna/Docusate Sodium 8.6/50 MG Tablet PO SCH ×2 (08:34→21:57)
--- NOTE | 2018-05-18 16:51 | P.PN ---
Subjective Interval history: Follow-up altered mental status,EtOH, anemia, general weakness and hypertension. Patient seen and examined laying in bed, sleeping, awakes to voice. Oriented x2. States that she did not sleep very much. Denies any chest pain, no shortness of breath. No acute changes overnight. Has not eaten her breakfast. Waiting for placement. Physical Exam Vital signs: Vital Signs 05/17/18 20:00 05/18/18 00:00 05/18/18 04:00 Temperature 97.9 F Pulse Rate 87 66 86 Respiratory Rate 18 Blood Pressure 110/76 Pulse Oximetry 98 05/18/18 08:00 Temperature 97.7 F Pulse Rate 75 Respiratory Rate 18 Blood Pressure 88/55 L Pulse Oximetry 97 Intake & Output 05/17/18 05/18/18 05/18/18 18:59 06:59 18:59 Intake Total 720 / 720 Balance 720 / 720 Weight 57.8 kg Intake: Oral 720 / 720 Other: # Voids 2 Date of Last Bowel Movement 05/16/18 Narrative: GENERAL: Well-developed, thin female, alert and oriented x2, in no apparent distress SKIN: Warm and dry. HEAD: Atraumatic. Normocephalic. EYES: Pupils equal and round. No scleral icterus. No injection or drainage. ENT: No nasal bleeding or discharge. Mucous membranes pink and moist. NECK: Trachea midline. No JVD. CARDIOVASCULAR: Regular rate and rhythm. RESPIRATORY: No accessory muscle use. Clear to auscultation. Breath sounds equal bilaterally. GASTROINTESTINAL: Abdomen flat, soft, non-tender, nondistended. Hepatic and splenic margins not palpable. MUSCULOSKELETAL: Extremities without clubbing, cyanosis, or edema. No obvious deformities. NEUROLOGICAL: Awakes to voice, oriented x2. No obvious cranial nerve deficits. Motor grossly within normal limits. Moving all all 4 extremities. Normal speech. PSYCHIATRIC: Pleasant, appropriate mood and affect; insight and judgment unreliable. Cooperative Results - Labs CBC & Chem 7: 05/07/18 06:45 05/07/18 06:45 Assessment and Plan - Assessment (1) Altered mental status Code(s): R41.82 - Altered mental status, unspecified Status: Chronic (2) Anemia Code(s): D64.9 - Anemia, unspecified Status: Chronic Plan: .. (3) Tachyarrhythmia Code(s): R00.0 - Tachycardia, unspecified Status: Chronic Plan: .. (4) COPD (chronic obstructive pulmonary disease) Code(s): J44.9 - Chronic obstructive pulmonary disease, unspecified Status: Chronic Plan: .. (5) HTN (hypertension) Code(s): I10 - Essential (primary) hypertension Status: Chronic Plan: .. 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 Patient was brought to [facility] on 12/13 by friend for confusion x 2 weeks weakness and flu like symptoms. Patient was admitted to [facility] from 12/13/17 to 12/18/17 treated for metabolic encephalopathy related to UTI and then DC'd to [facility]. Patient was seen in the emergency department related to altered mentation and anemia 12/24/18. The patient at that time was had hemoglobin of 9.3 and her rectal examination was negative for blood. She was deemed safe for discharge with follow-up as an outpatient. Patient again presented to the ER 12/25/17 for increased altered mentation since [facility] at approximately 8:15 AM 12/25. The patient has a baseline history of altered mentation that is thought to be related to her history of alcohol abuse and Wernicke's encephalopathy. Psychiatry determined that she is not competent to make her own medical decisions. History of PAT /Hypertension S/P AV ann ablation in the past Jul 2017 No chest pain, no shortness of breath -HR improving, blood pressure stable in the low side -Continue on low-dose metoprolol 12.5 mg po bid -hold parameters in place. -Discontinue telemetry. Acute kidney injury on chronic -Creatinine 1.41 -Avoid nephrotoxins -Encourage increase fluid intake -monitor BMP intermittently. Altered mental status- Improved cooperative and appropriate -CT head negative, normal TSH, normal RPR, normal ammonia level -Consider Wernicke's encephalopathy, continue folic acid and thiamine, continue seizure precautions -Psych declined admission, they feel this is alcohol-related -Continuing Seroquel 100 mg nightly -Psychiatry declined admission, they feel this is alcohol related, they declare patient is not competent to make her own decisions -Case management working on guardianship appointment to obtain accepting facility -Continues to have confusion. Family unwilling to take care of the patient. Generalized weakness - improved, up and ambulating -Continue to encourage physical activity such as walking around the unit -UA negative, no electrolyte imbalance noted -Staff to encourage and remind patient at mealtimes to increase p.o. intake Anemia -Recent hgb 11.2, Hct 33.6, MCV 87.4 -Gastroenterology consulted, recommends outpatient follow-up -H&H improved, stable -monitor CBC EtOH -Counseled on cessation -Continue vitamin D h/o COPD no SOB -Duonebs as needed DVT Prophylaxis: ambulatory Code Status: Full code Discussed Condition With: RN, pt, CM Discharge Planning: Waiting for placement (2) Anemia Qualifiers: Anemia type: unspecified type Qualified Code(s): D64.9 - Anemia, unspecified
[2018-05-18] MEDS: QUEtiapine 25 MG Tablet PO SCH (21:57)
[2018-05-19] MEDS: Senna/Docusate Sodium 8.6/50 MG Tablet PO SCH ×2 (09:12→22:02)
[2018-05-19] MEDS: Metoprolol Tartrate 25 MG Tablet PO SCH ×2 (09:12→22:02)
--- NOTE | 2018-05-19 11:46 | P.PNIM ---
Subjective Interval history: 10- Follow-up altered mental status,EtOH, anemia, general weakness and hypertension. Patient seen and examined laying in bed, sleeping awakened for examination. Patient stated she is still confused, patient states that she do not know where she is, able to identify her name and date of breath. Patient denies any pain or shortness of breath denies any headache or dizziness denies any nausea or vomiting denies any diarrhea or constipation. Patient patient's lunch tray found still sitting at the bedside, and breakfast tray in the counter. Discussed with patient increase of p.o. intake, patient stated she will it now. Patient assisted and set up for the trach. Will discuss with nursing to encourage and remind patient at mealtimes. 10-8 NO NEW COMPLAINTS AWAIT PLACEMENT NO NEW ISSUES DW RN AND PT AND CM 10-9 NO NEW ISSUES NO COMPLAINTS AWAIT SAFE PLACEMENT DW RN AND PT AND CM 10-10 [place] NO NEW ISSUES AWAIT SAFE PLACEMENT DW RN AND PT AND CM 10-11 NO NEW ISSUES DW RN AND PT AND CM 10-12 AWAIT SAFE PLACEMENT [place] TODAY DW RN AND PT AND CM 10-13 Follow-up altered mental status,EtOH, anemia, general weakness and hypertension. Patient seen and examined laying in bed, sleeping, awakes to voice. Oriented x2. States that she did not sleep very much. Denies any chest pain, no shortness of breath. No acute changes overnight. Has not eaten her breakfast. Waiting for placement. 10-14 NO NEW ISSUES VERY PLEAS[place] DW RN AND PT AND CM Physical Exam Vital signs: Vital Signs 05/18/18 20:00 05/19/18 00:00 05/19/18 04:22 Temperature 98.1 F Pulse Rate 86 Respiratory Rate Blood Pressure 111/72 Pulse Oximetry 94 L 05/19/18 08:00 Temperature 98.0 F Pulse Rate 70 Respiratory Rate 23 Blood Pressure 104/55 L Pulse Oximetry 98 Intake & Output 05/18/18 05/19/18 05/19/18 18:59 06:59 18:59 Intake Total 1440 / 1440 480 / 480 Balance 1440 / 1440 480 / 480 Weight 56.4 kg Intake: Oral 1440 / 1440 480 / 480 Other: # Voids 2 2 Date of Last Bowel Movement 05/16/18 # Bowel Movements 1 Narrative: GENERAL: Well-developed, thin female, alert and oriented x2, in no apparent distress SKIN: Warm and dry. HEAD: Atraumatic. Normocephalic. EYES: Pupils equal and round. No scleral icterus. No injection or drainage. ENT: No nasal bleeding or discharge. Mucous membranes pink and moist. NECK: Trachea midline. No JVD. CARDIOVASCULAR: Regular rate and rhythm. RESPIRATORY: No accessory muscle use. Clear to auscultation. Breath sounds equal bilaterally. GASTROINTESTINAL: Abdomen flat, soft, non-tender, nondistended. Hepatic and splenic margins not palpable. MUSCULOSKELETAL: Extremities without clubbing, cyanosis, or edema. No obvious deformities. NEUROLOGICAL: Awakes to voice, oriented x2. No obvious cranial nerve deficits. Motor grossly within normal limits. Moving all all 4 extremities. Normal speech. PSYCHIATRIC: Pleasant, appropriate mood and affect; insight and judgment unreliable. Cooperative Results - Labs CBC & Chem 7: 05/07/18 06:45 05/07/18 06:45 Assessment and Plan - Assessment (1) Altered mental status Code(s): R41.82 - Altered mental status, unspecified Status: Chronic Plan: .. (2) Anemia Code(s): D64.9 - Anemia, unspecified Status: Chronic Plan: .. (3) Tachyarrhythmia Code(s): R00.0 - Tachycardia, unspecified Status: Chronic Plan: .. (4) COPD (chronic obstructive pulmonary disease) Code(s): J44.9 - Chronic obstructive pulmonary disease, unspecified Status: Chronic Plan: .. (5) HTN (hypertension) Code(s): I10 - Essential (primary) hypertension Status: Chronic Plan: .. 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 Patient was brought to [facility] on 12/13 by friend for confusion x 2 weeks weakness and flu like symptoms. Patient was admitted to [facility] from 12/13/17 to 12/18/17 treated for metabolic encephalopathy related to UTI and then DC'd to [facility]. Patient was seen in the emergency department related to altered mentation and anemia 12/24/18. The patient at that time was had hemoglobin of 9.3 and her rectal examination was negative for blood. She was deemed safe for discharge with follow-up as an outpatient. Patient again presented to the ER 12/25/17 for increased altered mentation since falling at her residential at approximately 8:15 AM 12/25. The patient has a baseline history of altered mentation that is thought to be related to her history of alcohol abuse and Wernicke's encephalopathy. Psychiatry determined that she is not competent to make her own medical decisions. History of PAT /Hypertension S/P AV ann ablation in the past Jul 2017 No chest pain, no shortness of breath -HR improving, blood pressure stable in the low side -Continue on low-dose metoprolol 12.5 mg po bid -hold parameters in place. -Discontinue telemetry. Acute kidney injury on chronic -Creatinine 1.41 -Avoid nephrotoxins -Encourage increase fluid intake -monitor BMP intermittently. Altered mental status- Improved cooperative and appropriate -CT head negative, normal TSH, normal RPR, normal ammonia level -Consider Wernicke's encephalopathy, continue folic acid and thiamine, continue seizure precautions -Psych declined admission, they feel this is alcohol-related -Continuing Seroquel 100 mg nightly -Psychiatry declined admission, they feel this is alcohol related, they declare patient is not competent to make her own decisions -Case management working on guardianship appointment to obtain accepting facility -Continues to have confusion. Family unwilling to take care of the patient. Generalized weakness - improved, up and ambulating -Continue to encourage physical activity such as walking around the unit -UA negative, no electrolyte imbalance noted -Staff to encourage and remind patient at mealtimes to increase p.o. intake Anemia -Recent hgb 11.2, Hct 33.6, MCV 87.4 -Gastroenterology consulted, recommends outpatient follow-up -H&H improved, stable -monitor CBC EtOH -Counseled on cessation -Continue vitamin D h/o COPD no SOB -Duonebs as needed DVT Prophylaxis: ambulatory Code Status: FULL CODE Discussed Condition With: RN AND PT AND CM Discharge Planning: SAFE PLACEMENT (2) Anemia Qualifiers: Anemia type: unspecified type Qualified Code(s): D64.9 - Anemia, unspecified
[2018-05-19] MEDS: QUEtiapine 25 MG Tablet PO SCH (22:03)
[2018-05-20] MEDS: Metoprolol Tartrate 25 MG Tablet PO SCH ×2 (09:06→20:53)
[2018-05-20] MEDS: Senna/Docusate Sodium 8.6/50 MG Tablet PO SCH ×2 (09:07→20:53)
--- NOTE | 2018-05-20 12:27 | P.PNIM ---
Subjective Interval history: 10-7 Follow-up altered mental status,EtOH, anemia, general weakness and hypertension. Patient seen and examined laying in bed, sleeping awakened for examination. Patient stated she is still confused, patient states that she do not know where she is, able to identify her name and date of breath. Patient denies any pain or shortness of breath denies any headache or dizziness denies any nausea or vomiting denies any diarrhea or constipation. Patient patient's lunch tray found still sitting at the bedside, and breakfast tray in the counter. Discussed with patient increase of p.o. intake, patient stated she will it now. Patient assisted and set up for the trach. Will discuss with nursing to encourage and remind patient at mealtimes. 10-8 NO NEW COMPLAINTS AWAIT PLACEMENT NO NEW ISSUES DW RN AND PT AND CM 10-9 NO NEW ISSUES NO COMPLAINTS AWAIT SAFE PLACEMENT DW RN AND PT AND CM 10-10 [place] NO NEW ISSUES AWAIT SAFE PLACEMENT DW RN AND PT AND CM 10-11 NO NEW ISSUES DW RN AND PT AND CM 10-12 AWAIT SAFE PLACEMENT [place] TODAY DW RN AND PT AND CM 10-13 Follow-up altered mental status,EtOH, anemia, general weakness and hypertension. Patient seen and examined laying in bed, sleeping, awakes to voice. Oriented x2. States that she did not sleep very much. Denies any chest pain, no shortness of breath. No acute changes overnight. Has not eaten her breakfast. Waiting for placement. 10-14 NO NEW ISSUES VERY [place] DW RN AND PT AND CM 10-15 NO ISSUES RESTING IN BED DW RN AND PT AND CM NEEDS SAFE PLACEMENT Physical Exam Vital signs: Vital Signs 05/19/18 20:00 05/20/18 04:00 05/20/18 08:00 Temperature 97.6 F 97.8 F Pulse Rate 99 H 73 Respiratory Rate 16 18 16 Blood Pressure 112/88 85/59 L Pulse Oximetry 98 97 Intake & Output 05/19/18 05/20/18 05/20/18 18:59 06:59 18:59 Intake Total 480 / 480 Balance 480 / 480 Weight 54.9 kg Intake: Oral 480 / 480 Other: # Voids 2 Date of Last Bowel Movement 05/16/18 Narrative: GENERAL: Well-developed, thin female, alert and oriented x2, in no apparent distress SKIN: Warm and dry. HEAD: Atraumatic. Normocephalic. EYES: Pupils equal and round. No scleral icterus. No injection or drainage. ENT: No nasal bleeding or discharge. Mucous membranes pink and moist. NECK: Trachea midline. No JVD. CARDIOVASCULAR: Regular rate and rhythm. RESPIRATORY: No accessory muscle use. Clear to auscultation. Breath sounds equal bilaterally. GASTROINTESTINAL: Abdomen flat, soft, non-tender, nondistended. Hepatic and splenic margins not palpable. MUSCULOSKELETAL: Extremities without clubbing, cyanosis, or edema. No obvious deformities. NEUROLOGICAL: Awakes to voice, oriented x2. No obvious cranial nerve deficits. Motor grossly within normal limits. Moving all all 4 extremities. Normal speech. PSYCHIATRIC: Pleasant, appropriate mood and affect; insight and judgment unreliable. Cooperative Results - Labs CBC & Chem 7: 05/07/18 06:45 05/07/18 06:45 Assessment and Plan - Assessment (1) Altered mental status Code(s): R41.82 - Altered mental status, unspecified Status: Chronic Plan: .. (2) Anemia Code(s): D64.9 - Anemia, unspecified Status: Chronic Plan: .. (3) Tachyarrhythmia Code(s): R00.0 - Tachycardia, unspecified Status: Chronic Plan: .. (4) COPD (chronic obstructive pulmonary disease) Code(s): J44.9 - Chronic obstructive pulmonary disease, unspecified Status: Chronic Plan: .. (5) HTN (hypertension) Code(s): I10 - Essential (primary) hypertension Status: Chronic Plan: .. 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 Patient was brought to [facility] on 12/13 by friend for confusion x 2 weeks weakness and flu like symptoms. Patient was admitted to [facility] from 12/13/17 to 12/18/17 treated for metabolic encephalopathy related to UTI and then DC'd to [facility]. Patient was seen in the emergency department related to altered mentation and anemia 12/24/18. The patient at that time was had hemoglobin of 9.3 and her rectal examination was negative for blood. She was deemed safe for discharge with follow-up as an outpatient. Patient again presented to the ER 12/25/17 for increased altered mentation since falling at her retirement at approximately 8:15 AM 12/25. The patient has a baseline history of altered mentation that is thought to be related to her history of alcohol abuse and Wernicke's encephalopathy. Psychiatry determined that she is not competent to make her own medical decisions. History of PAT /Hypertension S/P AV ann ablation in the past Jul 2017 No chest pain, no shortness of breath -HR improving, blood pressure stable in the low side -Continue on low-dose metoprolol 12.5 mg po bid -hold parameters in place. -Discontinue telemetry. Acute kidney injury on chronic -Creatinine 1.41 -Avoid nephrotoxins -Encourage increase fluid intake -monitor BMP intermittently. Altered mental status- Improved cooperative and appropriate -CT head negative, normal TSH, normal RPR, normal ammonia level -Consider Wernicke's encephalopathy, continue folic acid and thiamine, continue seizure precautions -Psych declined admission, they feel this is alcohol-related -Continuing Seroquel 100 mg nightly -Psychiatry declined admission, they feel this is alcohol related, they declare patient is not competent to make her own decisions -Case management working on guardianship appointment to obtain accepting facility -Continues to have confusion. Family unwilling to take care of patient at home. Generalized weakness - improved, up and ambulating -Continue to encourage physical activity such as walking around the unit -UA negative, no electrolyte imbalance noted -Staff to encourage and remind patient at mealtimes to increase p.o. intake Anemia -Recent hgb 11.2, Hct 33.6, MCV 87.4 -Gastroenterology consulted, recommends outpatient follow-up -H&H improved, stable -monitor CBC EtOH -Counseled on cessation -Continue vitamin D h/o COPD no SOB -Duonebs as needed DVT Prophylaxis: ambulatory Code Status: FULL CODE Discussed Condition With: RN AND PT AND CM Discharge Planning: SAFE PLACEMENT (2) Anemia Qualifiers: Anemia type: unspecified type Qualified Code(s): D64.9 - Anemia, unspecified
[2018-05-20] MEDS: QUEtiapine 25 MG Tablet PO SCH (20:53)
[2018-05-21] MEDS: Senna/Docusate Sodium 8.6/50 MG Tablet PO SCH ×2 (08:42→20:03)
[2018-05-21] MEDS: Metoprolol Tartrate 25 MG Tablet PO SCH ×2 (08:42→20:03)
--- NOTE | 2018-05-21 11:47 | P.PNIM ---
Subjective Interval history: 10-7 Follow-up altered mental status,EtOH, anemia, general weakness and hypertension. Patient seen and examined laying in bed, sleeping awakened for examination. Patient stated she is still confused, patient states that she do not know where she is, able to identify her name and date of breath. Patient denies any pain or shortness of breath denies any headache or dizziness denies any nausea or vomiting denies any diarrhea or constipation. Patient patient's lunch tray found still sitting at the bedside, and breakfast tray in the counter. Discussed with patient increase of p.o. intake, patient stated she will it now. Patient assisted and set up for the trach. Will discuss with nursing to encourage and remind patient at mealtimes. 10-8 NO NEW COMPLAINTS AWAIT PLACEMENT NO NEW ISSUES DW RN AND PT AND CM 10-9 NO NEW ISSUES NO COMPLAINTS AWAIT SAFE PLACEMENT DW RN AND PT AND CM 10-10 [place] NO NEW ISSUES AWAIT SAFE PLACEMENT DW RN AND PT AND CM 10-11 NO NEW ISSUES DW RN AND PT AND CM 10-12 AWAIT SAFE PLACEMENT [place] TODAY DW RN AND PT AND CM 10-13 Follow-up altered mental status,EtOH, anemia, general weakness and hypertension. Patient seen and examined laying in bed, sleeping, awakes to voice. Oriented x2. States that she did not sleep very much. Denies any chest pain, no shortness of breath. No acute changes overnight. Has not eaten her breakfast. Waiting for placement. 10-14 NO NEW ISSUES VERY [place] DW RN AND PT AND CM 10-15 NO ISSUES RESTING IN BED DW RN AND PT AND CM NEEDS SAFE PLACEMENT 10-16 NO NEW COMPLAINTS TODAY DW RN AND PT AND CM AWAIT PLACEMENT Physical Exam Vital signs: Vital Signs 05/20/18 20:30 05/21/18 08:00 Temperature 98.2 F 97.9 F Pulse Rate 96 H 74 Respiratory Rate 20 20 Blood Pressure 100/64 102/57 L Pulse Oximetry 98 97 Intake & Output 05/20/18 05/21/18 05/21/18 18:59 06:59 18:59 Intake Total 360 / 360 Balance 360 / 360 Weight 56.2 kg Intake: Oral 360 / 360 Other: # Voids 2 Narrative: GENERAL: Well-developed, thin female, alert and oriented x2, in no apparent distress SKIN: Warm and dry. HEAD: Atraumatic. Normocephalic. EYES: Pupils equal and round. No scleral icterus. No injection or drainage. ENT: No nasal bleeding or discharge. Mucous membranes pink and moist. NECK: Trachea midline. No JVD. CARDIOVASCULAR: Regular rate and rhythm. RESPIRATORY: No accessory muscle use. Clear to auscultation. Breath sounds equal bilaterally. GASTROINTESTINAL: Abdomen flat, soft, non-tender, nondistended. Hepatic and splenic margins not palpable. MUSCULOSKELETAL: Extremities without clubbing, cyanosis, or edema. No obvious deformities. NEUROLOGICAL: Awakes to voice, oriented x2. No obvious cranial nerve deficits. Motor grossly within normal limits. Moving all all 4 extremities. Normal speech. PSYCHIATRIC: Pleasant, appropriate mood and affect; insight and judgment unreliable. Cooperative Results - Labs CBC & Chem 7: 05/07/18 06:45 05/07/18 06:45 Assessment and Plan - Assessment (1) Altered mental status Code(s): R41.82 - Altered mental status, unspecified Status: Chronic Plan: .. (2) Anemia Code(s): D64.9 - Anemia, unspecified Status: Chronic Plan: .. (3) Tachyarrhythmia Code(s): R00.0 - Tachycardia, unspecified Status: Chronic Plan: .. (4) COPD (chronic obstructive pulmonary disease) Code(s): J44.9 - Chronic obstructive pulmonary disease, unspecified Status: Chronic Plan: .. (5) HTN (hypertension) Code(s): I10 - Essential (primary) hypertension Status: Chronic Plan: .. 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 Patient was brought to [facility] on 12/13 by friend for confusion x 2 weeks weakness and flu like symptoms. Patient was admitted to [facility] from 12/13/17 to 12/18/17 treated for metabolic encephalopathy related to UTI and then DC'd to [facility]. Patient was seen in the emergency department related to altered mentation and anemia 12/24/18. The patient at that time was had hemoglobin of 9.3 and her rectal examination was negative for blood. She was deemed safe for discharge with follow-up as an outpatient. Patient again presented to the ER 12/25/17 for increased altered mentation since falling at her longterm at approximately 8:15 AM 12/25. The patient has a baseline history of altered mentation that is thought to be related to her history of alcohol abuse and Wernicke's encephalopathy. Psychiatry determined that she is not competent to make her own medical decisions. History of PAT /Hypertension S/P AV ann ablation in the past Jul 2017 No chest pain, no shortness of breath -HR improving, blood pressure stable in the low side -Continue on low-dose metoprolol 12.5 mg po bid -hold parameters in place. -Discontinue telemetry. Acute kidney injury on chronic -Creatinine 1.41 -Avoid nephrotoxins -Encourage increase fluid intake -monitor BMP intermittently. Altered mental status- Improved cooperative and appropriate -CT head negative, normal TSH, normal RPR, normal ammonia level -Consider Wernicke's encephalopathy, continue folic acid and thiamine, continue seizure precautions -Psych declined admission, they feel this is alcohol-related -Continuing Seroquel 100 mg nightly -Psychiatry declined admission, they feel this is alcohol related, they declare patient is not competent to make her own decisions -Case management working on guardianship appointment to obtain accepting facility -Continues to have confusion. Family unwilling to take care of patient at home. Generalized weakness - improved, up and ambulating -Continue to encourage physical activity such as walking around the unit -UA negative, no electrolyte imbalance noted -Staff to encourage and remind patient at mealtimes to increase p.o. intake Anemia -Recent hgb 11.2, Hct 33.6, MCV 87.4 -Gastroenterology consulted, recommends outpatient follow-up -H&H improved, stable -monitor CBC EtOH -Counseled on cessation -Continue vitamin D h/o COPD no SOB -Duonebs as needed DVT Prophylaxis: ambulatory Code Status: FULL CODE Discussed Condition With: KENDALL RN AND PT AND CM Discharge Planning: SAFE PLACEMENT (2) Anemia Qualifiers: Anemia type: unspecified type Qualified Code(s): D64.9 - Anemia, unspecified
[2018-05-21] MEDS: QUEtiapine 25 MG Tablet PO SCH (20:03)
[2018-05-22] MEDS: Metoprolol Tartrate 25 MG Tablet PO SCH ×2 (08:24→20:15)
[2018-05-22] MEDS: Senna/Docusate Sodium 8.6/50 MG Tablet PO SCH ×2 (08:24→20:14)
[2018-05-22] MEDS: QUEtiapine 25 MG Tablet PO SCH (09:00)
--- NOTE | 2018-05-22 12:08 | P.PNIM ---
Subjective Interval history: Follow up. Patient is awaiting placement. NO new complaints. Patient resting in bed, no chest pain. Physical Exam Vital signs: Vital Signs 05/21/18 19:46 05/22/18 08:00 Temperature 97.8 F 97.3 F L Pulse Rate 112 H 68 Respiratory Rate 18 16 Blood Pressure 93/67 L 110/54 L Pulse Oximetry 97 Intake & Output 05/21/18 05/22/18 05/22/18 18:59 06:59 18:59 Intake Total 360 / 360 Balance 360 / 360 Weight 57.2 kg Intake: Oral 360 / 360 Other: # Voids 1 3 # Bowel Movements 0 Narrative: GENERAL: Well-developed, thin female, alert and oriented x2, in no apparent distress SKIN: Warm and dry. HEAD: Atraumatic. Normocephalic. EYES: Pupils equal and round. No scleral icterus. No injection or drainage. ENT: No nasal bleeding or discharge. Mucous membranes pink and moist. NECK: Trachea midline. No JVD. CARDIOVASCULAR: Regular rate and rhythm. RESPIRATORY: No accessory muscle use. Clear to auscultation. Breath sounds equal bilaterally. GASTROINTESTINAL: Abdomen flat, soft, non-tender, nondistended. Hepatic and splenic margins not palpable. MUSCULOSKELETAL: Extremities without clubbing, cyanosis, or edema. No obvious deformities. NEUROLOGICAL: Awakes to voice, oriented x2. No obvious cranial nerve deficits. Motor grossly within normal limits. Moving all all 4 extremities. Normal speech. PSYCHIATRIC: Pleasant, appropriate mood and affect; insight and judgment unreliable. Cooperative Results - Labs CBC & Chem 7: 05/07/18 06:45 05/07/18 06:45 Assessment and Plan - Assessment (1) Altered mental status Code(s): R41.82 - Altered mental status, unspecified Status: Chronic Plan: .. (2) Anemia Code(s): D64.9 - Anemia, unspecified Status: Chronic Plan: .. (3) Tachyarrhythmia Code(s): R00.0 - Tachycardia, unspecified Status: Chronic Plan: .. (4) COPD (chronic obstructive pulmonary disease) Code(s): J44.9 - Chronic obstructive pulmonary disease, unspecified Status: Chronic Plan: .. (5) HTN (hypertension) Code(s): I10 - Essential (primary) hypertension Status: Chronic Plan: .. 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 Patient was brought to [facility] on 12/13 by friend for confusion x 2 weeks weakness and flu like symptoms. Patient was admitted to [facility] from 12/13/17 to 12/18/17 treated for metabolic encephalopathy related to UTI and then DC'd to [facility]. Patient was seen in the emergency department related to altered mentation and anemia 12/24/18. The patient at that time was had hemoglobin of 9.3 and her rectal examination was negative for blood. She was deemed safe for discharge with follow-up as an outpatient. Patient again presented to the ER 12/25/17 for increased altered mentation since falling at her long term at approximately 8:15 AM 12/25. The patient has a baseline history of altered mentation that is thought to be related to her history of alcohol abuse and Wernicke's encephalopathy. Psychiatry determined that she is not competent to make her own medical decisions. History of PAT /Hypertension S/P AV ann ablation in the past Jul 2017 No chest pain, no shortness of breath -HR improving, blood pressure stable in the low side -Continue on low-dose metoprolol 12.5 mg po bid -hold parameters in place. -Discontinue telemetry. Acute kidney injury on chronic -Creatinine 1.41 -Avoid nephrotoxins -Encourage increase fluid intake -monitor BMP intermittently. Altered mental status- Improved cooperative and appropriate -CT head negative, normal TSH, normal RPR, normal ammonia level -Consider Wernicke's encephalopathy, continue folic acid and thiamine, continue seizure precautions -Psych declined admission, they feel this is alcohol-related -Continuing Seroquel 100 mg nightly -Psychiatry declined admission, they feel this is alcohol related, they declare patient is not competent to make her own decisions -Case management working on guardianship appointment to obtain accepting facility -Continues to have confusion. Family unwilling to take care of patient at home. Generalized weakness - improved, up and ambulating -Continue to encourage physical activity such as walking around the unit -UA negative, no electrolyte imbalance noted -Staff to encourage and remind patient at mealtimes to increase p.o. intake Anemia -Recent hgb 11.2, Hct 33.6, MCV 87.4 -Gastroenterology consulted, recommends outpatient follow-up -H&H improved, stable -monitor CBC EtOH -Counseled on cessation -Continue vitamin D h/o COPD no SOB -Duonebs as needed DVT Prophylaxis: ambulatory Discussed Condition With: Patient and supervisory investigative specialist Planning: awaiting placement (2) Anemia Qualifiers: Anemia type: unspecified type Qualified Code(s): D64.9 - Anemia, unspecified
[2018-05-23] MEDS: QUEtiapine 25 MG Tablet PO SCH ×2 (08:00→20:00)
[2018-05-23] MEDS: Senna/Docusate Sodium 8.6/50 MG Tablet PO SCH ×2 (09:27→20:00)
[2018-05-23] MEDS: Metoprolol Tartrate 25 MG Tablet PO SCH ×2 (09:27→20:00)
--- NOTE | 2018-05-23 13:09 | P.PN ---
Subjective Interval history: no complains "nice to see you" Physical Exam Vital signs: Vital Signs 05/22/18 19:45 05/23/18 08:00 Temperature 97.8 F 97.9 F Pulse Rate 105 H 83 Respiratory Rate 17 16 Blood Pressure 114/78 110/84 Pulse Oximetry 100 97 Intake & Output 05/22/18 05/23/18 05/23/18 18:59 06:59 18:59 Intake Total 360 / 360 Output Total 400 / 400 Balance -40 / -40 Weight 57.2 kg Intake: Oral 360 / 360 Output: Urine 400 / 400 Other: Date of Last Bowel Movement 05/16/18 # Bowel Movements 0 Narrative: GENERAL: oriented x 3, speech clear, pleasant and cooperative SKIN: Warm and dry. HEAD: Atraumatic. Normocephalic. EYES: Pupils equal and round. No scleral icterus. No injection or drainage. ENT: No nasal bleeding or discharge. Mucous membranes pink and moist. NECK: Trachea midline. No JVD. CARDIOVASCULAR: Regular rate and rhythm. RESPIRATORY: No accessory muscle use. Clear to auscultation. Breath sounds equal bilaterally. GASTROINTESTINAL: Abdomen flat, soft, non-tender, nondistended. MUSCULOSKELETAL: Extremities without clubbing, cyanosis, or edema. No obvious deformities. NEUROLOGICAL: Awakes to voice, oriented x2. No obvious cranial nerve deficits. Motor grossly within normal limits. Moving all all 4 extremities. Normal speech. PSYCHIATRIC: Pleasant, appropriate mood and affect; insight and judgment unreliable. Cooperative Results - Labs CBC & Chem 7: 05/07/18 06:45 05/07/18 06:45 Assessment and Plan - Assessment (1) Altered mental status Code(s): R41.82 - Altered mental status, unspecified Status: Chronic Plan: .. (2) Anemia Code(s): D64.9 - Anemia, unspecified Status: Chronic Plan: .. (3) Tachyarrhythmia Code(s): R00.0 - Tachycardia, unspecified Status: Chronic Plan: .. (4) COPD (chronic obstructive pulmonary disease) Code(s): J44.9 - Chronic obstructive pulmonary disease, unspecified Status: Chronic Plan: .. (5) HTN (hypertension) Code(s): I10 - Essential (primary) hypertension Status: Chronic Plan: .. 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 Patient was brought to [facility] on 12/13 by friend for confusion x 2 weeks weakness and flu like symptoms. Patient was admitted to [facility] from 12/13/17 to 12/18/17 treated for metabolic encephalopathy related to UTI and then DC'd to [facility]. Patient was seen in the emergency department related to altered mentation and anemia 12/24/18. The patient at that time was had hemoglobin of 9.3 and her rectal examination was negative for blood. She was deemed safe for discharge with follow-up as an outpatient. Patient again presented to the ER 12/25/17 for increased altered mentation since falling at her [facility] at approximately 8:15 AM 12/25. The patient has a baseline history of altered mentation that is thought to be related to her history of alcohol abuse and Wernicke's encephalopathy. Psychiatry determined that she is not competent to make her own medical decisions. History of PAT /Hypertension S/P AV ann ablation in the past Jul 2017 No chest pain, no shortness of breath -HR improving, blood pressure stable in the low side -Continue on low-dose metoprolol 12.5 mg po bid -hold parameters in place. -Discontinue telemetry. Acute kidney injury on chronic -Creatinine 1.41 -Avoid nephrotoxins -Encourage increase fluid intake -monitor BMP intermittently. Altered mental status- Improved cooperative and appropriate -CT head negative, normal TSH, normal RPR, normal ammonia level -Consider Wernicke's encephalopathy, continue folic acid and thiamine, continue seizure precautions -Psych declined admission, they feel this is alcohol-related -Continuing Seroquel 100 mg nightly -Psychiatry declined admission, they feel this is alcohol related, they declare patient is not competent to make her own decisions -Case management working on guardianship appointment to obtain accepting facility -Continues to have confusion. Family unwilling to take care of patient at home. Generalized weakness - improved, up and ambulating -Continue to encourage physical activity such as walking around the unit -UA negative, no electrolyte imbalance noted -Staff to encourage and remind patient at mealtimes to increase p.o. intake Anemia -Recent hgb 11.2, Hct 33.6, MCV 87.4 -Gastroenterology consulted, recommends outpatient follow-up -H&H improved, stable -monitor CBC EtOH -Counseled on cessation -Continue vitamin D h/o COPD no SOB -Duonebs as needed DVT Prophylaxis: ambulatory Discussed Condition With: Patient and plate developer Planning: awaiting placement (2) Anemia Qualifiers: Anemia type: unspecified type Qualified Code(s): D64.9 - Anemia, unspecified The patient is a 52 year old female with past medical history which includes Abnormal LFTs, EtOH abuse, chronic back pain, COPD, hypertension, SVT. Patient was brought to [facility] on 12/13 by friend for confusion x 2 weeks weakness and flu like symptoms. Patient was admitted to [facility] from 12/13/17 to 12/18/17 treated for metabolic encephalopathy related to UTI and then DC'd to [facility]. Patient was seen in the emergency department related to altered mentation and anemia . The patient at that time was had hemoglobin of 9.3 and her rectal examination was negative for blood. She was deemed safe for discharge with follow-up as an outpatient. Patient again presented to the ER 12/25/17 for increased altered mentation since falling at her [facility] at approximately 8 :15 AM 12/25. The patient has a baseline history of altered mentation that is thought to be related to her history of alcohol abuse and Wernicke's encephalopathy. Psychiatry determined that she is not competent to make her own medical decisions. History of PAT S/P AV ann ablation in the past Jul 2017- HR better 90s - stable BP readings HR up on exam- place back on telemetry -Decrease metoprolol 6.25 mg po bid 04/25-- increase t0 12.5 mg po bid 04/28 and monitor Altered mental status- Improved cooperative and appropriate -CT head negative, normal TSH, normal RPR, normal ammonia level -Consider Wernike's encephalopathy, continue folic acid and thiamine, continue seizure precautions -Psych declined admission, they feel this is alcohol-related -Continuing Seroquel 100 mg nightly -Psychiatry declined admission, they feel this is alcohol related, they declare patient is not competent to make her own decisions -Case management working on guardianship appointment to obtain accepting facility -Continues to have confusion. Family unwilling to take care of the patient. reveiwed meds- has not been getting Ativan prn since 02/05- - will discontinue from [facility] 04/26 Generalized weakness- improved, good po - up and ambulating -Continue to encourage physical activity such as walking around the unit -UA negative, no electrolyte imbalance noted Anemia- Improved -On admission hgb 7.8, Hct 23.7, MCV 105.1 -Gastroenterology consulted, recommends outpatient follow-up -H&H improved, stable EtOH -Counseled on cessation -Continue vitamin D h/o COPD -Duo nebs as needed Hypertension -Continue beta-nela DVT Prop ambulatory Code Status: Full Code Discussed Condition With: Patient, nursing Discharge Planning: DC when arrangements are made. Difficult DC no placement. CM following (2) Anemia Qualifiers: Anemia type: unspecified type Qualified Code(s): D64.9 - Anemia, unspecified
[2018-05-24] MEDS: Senna/Docusate Sodium 8.6/50 MG Tablet PO SCH ×2 (08:11→20:44)
[2018-05-24] MEDS: Metoprolol Tartrate 25 MG Tablet PO SCH ×2 (08:11→20:44)
--- NOTE | 2018-05-24 12:59 | P.PN ---
Subjective Interval history: no complainsup and ambulating states her sister is willing to take her to go home wiht her Physical Exam Vital signs: Vital Signs 05/23/18 20:00 05/24/18 08:00 Temperature 98.4 F 98.0 F Pulse Rate 79 71 Respiratory Rate 18 15 Blood Pressure 111/67 105/65 Pulse Oximetry 100 98 Intake & Output 05/23/18 05/24/18 05/24/18 18:59 06:59 18:59 Intake Total 680 / 680 Balance 680 / 680 Weight 58.7 kg Intake: Oral 680 / 680 Other: # Voids 2 Date of Last Bowel Movement 05/16/18 Narrative: GENERAL: oriented x 3, speech clear, pleasant and cooperative SKIN: Warm and dry. HEAD: Atraumatic. Normocephalic. EYES: Pupils equal and round. No scleral icterus. No injection or drainage. ENT: No nasal bleeding or discharge. Mucous membranes pink and moist. NECK: Trachea midline. No JVD. CARDIOVASCULAR: Regular rate and rhythm. RESPIRATORY: No accessory muscle use. Clear to auscultation. Breath sounds equal bilaterally. GASTROINTESTINAL: Abdomen flat, soft, non-tender, nondistended. MUSCULOSKELETAL: Extremities without clubbing, cyanosis, or edema. No obvious deformities. NEUROLOGICAL: Awakes to voice, oriented x2. No obvious cranial nerve deficits. Motor grossly within normal limits. Moving all all 4 extremities. Normal speech. PSYCHIATRIC: Pleasant, appropriate mood and affect; i Cooperative Results - Labs CBC & Chem 7: 05/07/18 06:45 05/07/18 06:45 Assessment and Plan - Assessment (1) Altered mental status Code(s): R41.82 - Altered mental status, unspecified Status: Chronic Plan: .. (2) Anemia Code(s): D64.9 - Anemia, unspecified Status: Chronic Plan: .. (3) Tachyarrhythmia Code(s): R00.0 - Tachycardia, unspecified Status: Chronic Plan: .. (4) COPD (chronic obstructive pulmonary disease) Code(s): J44.9 - Chronic obstructive pulmonary disease, unspecified Status: Chronic Plan: .. (5) HTN (hypertension) Code(s): I10 - Essential (primary) hypertension Status: Chronic Plan: .. 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 Patient was brought to [facility] on 12/13 by friend for confusion x 2 weeks weakness and flu like symptoms. Patient was admitted to [facility] from 12/13/17 to 12/18/17 treated for metabolic encephalopathy related to UTI and then DC'd to [facility]. Patient was seen in the emergency department related to altered mentation and anemia 12/24/18. The patient at that time was had hemoglobin of 9.3 and her rectal examination was negative for blood. She was deemed safe for discharge with follow-up as an outpatient. Patient again presented to the ER 12/25/17 for increased altered mentation since falling at her [facility] at approximately 8:15 AM 12/25. The patient has a baseline history of altered mentation that is thought to be related to her history of alcohol abuse and Wernicke's encephalopathy. Psychiatry determined that she is not competent to make her own medical decisions. History of PAT /Hypertension S/P AV ann ablation in the past Jul 2017 No chest pain, no shortness of breath -HR improving, blood pressure stable in the low side -Continue on low-dose metoprolol 12.5 mg po bid -hold parameters in place. -Discontinue telemetry. Acute kidney injury on chronic -Creatinine 1.41 -Avoid nephrotoxins -Encourage increase fluid intake -monitor BMP intermittently. Altered mental status- Improved cooperative and appropriate -CT head negative, normal TSH, normal RPR, normal ammonia level -Consider Wernicke's encephalopathy, continue folic acid and thiamine, continue seizure precautions -Psych declined admission, they feel this is alcohol-related -Continuing Seroquel 100 mg nightly -Psychiatry declined admission, they feel this is alcohol related, they declare patient is not competent to make her own decisions -Case management working on guardianship appointment to obtain accepting facility -Continues to have confusion. Family unwilling to take care of patient at home. Generalized weakness - improved, up and ambulating -Continue to encourage physical activity such as walking around the unit -UA negative, no electrolyte imbalance noted -Staff to encourage and remind patient at mealtimes to increase p.o. 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 Patient was brought to [facility] on 12/13 by friend for confusion x 2 weeks weakness and flu like symptoms. Patient was admitted to [facility] from 12/13/17 to 12/18/17 treated for metabolic encephalopathy related to UTI and then DC'd to [facility]. Patient was seen in the emergency department related to altered mentation and anemia . The patient at that time was had hemoglobin of 9.3 and her rectal examination was negative for blood. She was deemed safe for discharge with follow-up as an outpatient. Patient again presented to the ER 12/25/17 for increased altered mentation since falling at her [facility] at approximately 8 :15 AM 12/25. The patient has a baseline history of altered mentation that is thought to be related to her history of alcohol abuse and Wernicke's encephalopathy. Psychiatry determined that she is not competent to make her own medical decisions. History of PAT S/P AV ann ablation in the past Jul 2017- HR better 90s - stable BP readings HR up on exam- place back on telemetry -Decrease metoprolol 6.25 mg po bid 04/25-- increase t0 12.5 mg po bid 04/28 and monitor Altered mental status- Improved cooperative and appropriate -CT head negative, normal TSH, normal RPR, normal ammonia level -Consider Wernike's encephalopathy, continue folic acid and thiamine, continue seizure precautions -Psych declined admission, they feel this is alcohol-related -Continuing Seroquel 100 mg nightly -Psychiatry declined admission, they feel this is alcohol related, they declare patient is not competent to make her own decisions -Case management working on guardianship appointment to obtain accepting facility -Continues to have confusion. Family unwilling to take care of the patient. reveiwed meds- has not been getting Ativan prn since 02/05- - will discontinue from [facility] 04/26 Generalized weakness- improved, good po - up and ambulating -Continue to encourage physical activity such as walking around the unit -UA negative, no electrolyte imbalance noted Anemia- IMproved -On admission hgb 7.8, Hct 23.7, MCV 105.1 -Gastroenterology consulted, recommends outpatient follow-up -H&H improved, stable EtOH -Counseled on cessation -Continue vitamin D h/o COPD -Duo nebs as needed Hypertension -Continue beta-nela DVT Prop ambulatory Code Status: Full Code Discussed Condition With: Patient, nursing Discharge Planning: DC when arrangements are made. Difficult DC no placement. CM following (2) Anemia Qualifiers: Anemia type: unspecified type Qualified Code(s): D64.9 - Anemia, unspecified
[2018-05-25] MEDS: Metoprolol Tartrate 25 MG Tablet PO SCH ×2 (08:41→21:09)
[2018-05-25] MEDS: Senna/Docusate Sodium 8.6/50 MG Tablet PO SCH ×2 (08:41→21:09)
--- NOTE | 2018-05-25 10:28 | P.PN ---
Subjective Interval history: no complains goo dpo up and ambulating Physical Exam Vital signs: Vital Signs 05/24/18 20:00 Temperature 97.7 F Pulse Rate 68 Respiratory Rate 16 Blood Pressure 112/59 L Pulse Oximetry 98 Intake & Output 05/24/18 05/25/18 05/25/18 18:59 06:59 18:59 Intake Total 480 / 480 120 / 120 Balance 480 / 480 120 / 120 Weight 56.8 kg Intake: Oral 480 / 480 120 / 120 Other: # Voids 3 3 Date of Last Bowel Movement 05/16/18 # Bowel Movements 0 0 Narrative: GENERAL: oriented x 3, speech clear, pleasant and cooperative HEAD: Atraumatic. Normocephalic. EYES: Pupils equal and round. No scleral icterus. NECK: Trachea midline. No JVD. CARDIOVASCULAR: Regular rate and rhythm. RESPIRATORY: No accessory muscle use. Clear to auscultation. Breath sounds equal bilaterally. GASTROINTESTINAL: Abdomen flat, soft, non-tender, nondistended. MUSCULOSKELETAL: Extremities without clubbing, cyanosis, or edema. No obvious deformities. NEUROLOGICAL: Awakes to voice, oriented x3 today . No obvious cranial nerve deficits. Motor grossly within normal limits. Moving all all 4 extremities. Normal speech. PSYCHIATRIC: Pleasant, appropriate mood and affect; i Cooperative Results - Labs CBC & Chem 7: 05/07/18 06:45 05/07/18 06:45 Assessment and Plan - Assessment (1) Altered mental status Code(s): R41.82 - Altered mental status, unspecified Status: Chronic Plan: .. (2) Anemia Code(s): D64.9 - Anemia, unspecified Status: Chronic Plan: .. (3) Tachyarrhythmia Code(s): R00.0 - Tachycardia, unspecified Status: Chronic Plan: .. (4) COPD (chronic obstructive pulmonary disease) Code(s): J44.9 - Chronic obstructive pulmonary disease, unspecified Status: Chronic Plan: .. (5) HTN (hypertension) Code(s): I10 - Essential (primary) hypertension Status: Chronic Plan: The patient is a 52 year old female with past medical history which includes Abnormal LFTs, EtOH abuse, chronic back pain, COPD, hypertension, SVT. Patient was brought to [facility] on 12/13 by friend for confusion x 2 weeks weakness and flu like symptoms. Patient was admitted to [facility] from 12/13/17 to 12/18/17 treated for metabolic encephalopathy related to UTI and then DC'd to [facility]. Patient was seen in the emergency department related to altered mentation and anemia . The patient at that time was had hemoglobin of 9.3 and her rectal examination was negative for blood. She was deemed safe for discharge with follow-up as an outpatient. Patient again presented to the ER 12/25/17 for increased altered mentation since falling at her long term at approximately 8 :15 AM 12/25. The patient has a baseline history of altered mentation that is thought to be related to her history of alcohol abuse and Wernicke's encephalopathy. Psychiatry determined that she is not competent to make her own medical decisions. History of PAT S/P AV ann ablation in the past Jul 2017- HR better 90s - stable BP readings HR up on exam- place back on telemetry -Decrease metoprolol 6.25 mg po bid 04/25-- increase t0 12.5 mg po bid 04/28 and monitor Altered mental status- Improved cooperative and appropriate -CT head negative, normal TSH, normal RPR, normal ammonia level -Consider Wernike's encephalopathy, continue folic acid and thiamine, continue seizure precautions -Psych declined admission, they feel this is alcohol-related -Continuing Seroquel 100 mg nightly -Psychiatry declined admission, they feel this is alcohol related, they declare patient is not competent to make her own decisions -Case management working on guardianship appointment to obtain accepting facility -Continues to have confusion. Family unwilling to take care of the patient. reveiwed meds- has not been getting Ativan prn since 02/05- - will discontinue from [facility] 04/26 Generalized weakness- improved, good po - up and ambulating -Continue to encourage physical activity such as walking around the unit -UA negative, no electrolyte imbalance noted Anemia- IMproved -On admission hgb 7.8, Hct 23.7, MCV 105.1 -Gastroenterology consulted, recommends outpatient follow-up -H&H improved, stable EtOH -Counseled on cessation -Continue vitamin D h/o COPD -Duo nebs as needed Hypertension -Continue beta-nela DVT Prop ambulatory Code Status: Full Code Discussed Condition With: Patient, nursing Discharge Planning: DC when arrangements are made. Difficult DC no placement. CM following (2) Anemia Qualifiers: Anemia type: unspecified type Qualified Code(s): D64.9 - Anemia, unspecified .. 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 Patient was brought to [facility] on 12/13 by friend for confusion x 2 weeks weakness and flu like symptoms. Patient was admitted to [facility] from 12/13/17 to 12/18/17 treated for metabolic encephalopathy related to UTI and then DC'd to [facility]. Patient was seen in the emergency department related to altered mentation and anemia . The patient at that time was had hemoglobin of 9.3 and her rectal examination was negative for blood. She was deemed safe for discharge with follow-up as an outpatient. Patient again presented to the ER 12/25/17 for increased altered mentation since falling at her long term at approximately 8 :15 AM 12/25. The patient has a baseline history of altered mentation that is thought to be related to her history of alcohol abuse and Wernicke's encephalopathy. Psychiatry determined that she is not competent to make her own medical decisions. History of PAT S/P AV ann ablation in the past Jul 2017- HR better 90s - stable BP readings HR up on exam- place back on telemetry -Decrease metoprolol 6.25 mg po bid 04/25-- increase t0 12.5 mg po bid 04/28 and monitor Altered mental status- Improved cooperative and appropriate -CT head negative, normal TSH, normal RPR, normal ammonia level -Consider Wernike's encephalopathy, continue folic acid and thiamine, continue seizure precautions -Psych declined admission, they feel this is alcohol-related -Continuing Seroquel 100 mg nightly -Psychiatry declined admission, they feel this is alcohol related, they declare patient is not competent to make her own decisions -Case management working on guardianship appointment to obtain accepting facility -Continues to have confusion. Family unwilling to take care of the patient. reveiwed meds- has not been getting Ativan prn since 02/05- - will discontinue from [facility] 04/26 Generalized weakness- improved, good po - up and ambulating -Continue to encourage physical activity such as walking around the unit -UA negative, no electrolyte imbalance noted Anemia- IMproved -On admission hgb 7.8, Hct 23.7, MCV 105.1 -Gastroenterology consulted, recommends outpatient follow-up -H&H improved, stable EtOH -Counseled on cessation -Continue vitamin D h/o COPD -Duo nebs as needed Hypertension -Continue beta-nela DVT Prop ambulatory Code Status: Full Code Discussed Condition With: Patient, nursing Discharge Planning: DC when arrangements are made. Difficult DC no placement. CM following (2) Anemia Qualifiers: Anemia type: unspecified type Qualified Code(s): D64.9 - Anemia, unspecified - Plan The patient is a 52 year old female with past medical history which includes Abnormal LFTs, EtOH abuse, chronic back pain, COPD, hypertension, SVT. Patient was brought to [facility] on 12/13 by friend for confusion x 2 weeks weakness and flu like symptoms. Patient was admitted to [facility] from 12/13/17 to 12/18/17 treated for metabolic encephalopathy related to UTI and then DC'd to [facility]. Patient was seen in the emergency department related to altered mentation and anemia . The patient at that time was had hemoglobin of 9.3 and her rectal examination was negative for blood. She was deemed safe for discharge with follow-up as an outpatient. Patient again presented to the ER 12/25/17 for increased altered mentation since falling at her long term at approximately 8 :15 AM 12/25. The patient has a baseline history of altered mentation that is thought to be related to her history of alcohol abuse and Wernicke's encephalopathy. Psychiatry determined that she is not competent to make her own medical decisions. History of PAT S/P AV ann ablation in the past Jul 2017- Hypertension- controlled -Continue beta-nela on Lopressor 12.5 mg po bid Altered mental status- Improved cooperative and appropriate -CT head negative, normal TSH, normal RPR, normal ammonia level -Consider Wernike's encephalopathy, continue folic acid and thiamine, continue seizure precautions -Psych declined admission, they feel this is alcohol-related -Continuing Seroquel 100 mg nightly -Psychiatry declined admission, they feel this is alcohol related, they declare patient is not competent to make her own decisions -Case management working on guardianship appointment to obtain accepting facility -Continues to have confusion. Family unwilling to take care of the patient. reveiwed meds- has not been getting Ativan prn since 02/05- - will discontinue from [facility] 04/26 Generalized weakness- improved, good po - up and ambulating -Continue to encourage physical activity such as walking around the unit -UA negative, no electrolyte imbalance noted Anemia- IMproved -On admission hgb 7.8, Hct 23.7, MCV 105.1 -Gastroenterology consulted, recommends outpatient follow-up -H&H improved, stable EtOH -Counseled on cessation -Continue vitamin D h/o COPD -Duo nebs as needed DVT Prop ambulatory Code Status: Full Code Discussed Condition With: Patient, nursing Discharge Planning: DC when arrangements are made. Difficult DC no placement. CM following (2) Anemia Qualifiers: Anemia type: unspecified type Qualified Code(s): D64.9 - Anemia, unspecified
[2018-05-25] MEDS: QUEtiapine 25 MG Tablet PO SCH (21:09)
[2018-05-26] MEDS: Senna/Docusate Sodium 8.6/50 MG Tablet PO SCH ×2 (08:25→21:12)
[2018-05-26] MEDS: Metoprolol Tartrate 25 MG Tablet PO SCH ×2 (08:26→21:12)
--- NOTE | 2018-05-26 09:51 | P.PN ---
Subjective Interval history: no complains Physical Exam Vital signs: Vital Signs 05/25/18 20:00 05/26/18 08:00 Temperature 97.9 F 97.6 F Pulse Rate 86 80 Respiratory Rate 18 19 Blood Pressure 108/71 113/70 Pulse Oximetry 99 98 Intake & Output 05/25/18 05/26/18 05/26/18 18:59 06:59 18:59 Intake Total 120 / 120 Balance 120 / 120 Intake: Oral 120 / 120 Other: # Voids 2 Date of Last Bowel Movement 05/16/18 # Bowel Movements 0 Narrative: GENERAL: oriented x 3, speech clear, pleasant and cooperative NECK: Trachea midline. No JVD. CARDIOVASCULAR: Regular rate and rhythm. RESPIRATORY: No accessory muscle use. Clear to auscultation. Breath sounds equal bilaterally. GASTROINTESTINAL: Abdomen flat, soft, non-tender, nondistended. MUSCULOSKELETAL: Extremities without clubbing, cyanosis, or edema. No obvious deformities. NEUROLOGICAL: Awakes to voice, oriented x3 today -neuro intact PSYCHIATRIC: Pleasant, appropriate mood and affect; i Cooperative Results - Labs CBC & Chem 7: 05/07/18 06:45 05/07/18 06:45 Assessment and Plan - Assessment (1) Altered mental status Code(s): R41.82 - Altered mental status, unspecified Status: Chronic Plan: .. (2) Anemia Code(s): D64.9 - Anemia, unspecified Status: Chronic Plan: .. (3) Tachyarrhythmia Code(s): R00.0 - Tachycardia, unspecified Status: Chronic Plan: .. (4) COPD (chronic obstructive pulmonary disease) Code(s): J44.9 - Chronic obstructive pulmonary disease, unspecified Status: Chronic Plan: .. (5) HTN (hypertension) Code(s): I10 - Essential (primary) hypertension Status: Chronic Plan: The patient is a 52 year old female with past medical history which includes Abnormal LFTs, EtOH abuse, chronic back pain, COPD, hypertension, SVT. Patient was brought to [facility] on 12/13 by friend for confusion x 2 weeks weakness and flu like symptoms. Patient was admitted to [facility] from 12/13/17 to 12/18/17 treated for metabolic encephalopathy related to UTI and then DC'd to [facility]. Patient was seen in the emergency department related to altered mentation and anemia . The patient at that time was had hemoglobin of 9.3 and her rectal examination was negative for blood. She was deemed safe for discharge with follow-up as an outpatient. Patient again presented to the ER 12/25/17 for increased altered mentation since falling at her fdc at approximately 8 :15 AM 12/25. The patient has a baseline history of altered mentation that is thought to be related to her history of alcohol abuse and Wernicke's encephalopathy. Psychiatry determined that she is not competent to make her own medical decisions. History of PAT S/P AV ann ablation in the past Jul 2017- HR better 90s - stable BP readings HR up on exam- place back on telemetry -Decrease metoprolol 6.25 mg po bid 04/25-- increase t0 12.5 mg po bid 04/28 and monitor Altered mental status- Improved cooperative and appropriate -CT head negative, normal TSH, normal RPR, normal ammonia level -Consider Wernike's encephalopathy, continue folic acid and thiamine, continue seizure precautions -Psych declined admission, they feel this is alcohol-related -Continuing Seroquel 100 mg nightly -Psychiatry declined admission, they feel this is alcohol related, they declare patient is not competent to make her own decisions -Case management working on guardianship appointment to obtain accepting facility -Continues to have confusion. Family unwilling to take care of the patient. reveiwed meds- has not been getting Ativan prn since 02/05- - will discontinue from [facility] 04/26 Generalized weakness- improved, good po - up and ambulating -Continue to encourage physical activity such as walking around the unit -UA negative, no electrolyte imbalance noted Anemia- IMproved -On admission hgb 7.8, Hct 23.7, MCV 105.1 -Gastroenterology consulted, recommends outpatient follow-up -H&H improved, stable EtOH -Counseled on cessation -Continue vitamin D h/o COPD -Duo nebs as needed Hypertension -Continue beta-nela DVT Prop ambulatory Code Status: Full Code Discussed Condition With: Patient, nursing Discharge Planning: DC when arrangements are made. Difficult DC no placement. CM following (2) Anemia Qualifiers: Anemia type: unspecified type Qualified Code(s): D64.9 - Anemia, unspecified .. 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 Patient was brought to [facility] on 12/13 by friend for confusion x 2 weeks weakness and flu like symptoms. Patient was admitted to [facility] from 12/13/17 to 12/18/17 treated for metabolic encephalopathy related to UTI and then DC'd to [facility]. Patient was seen in the emergency department related to altered mentation and anemia . The patient at that time was had hemoglobin of 9.3 and her rectal examination was negative for blood. She was deemed safe for discharge with follow-up as an outpatient. Patient again presented to the ER 12/25/17 for increased altered mentation since falling at her fdc at approximately 8 :15 AM 12/25. The patient has a baseline history of altered mentation that is thought to be related to her history of alcohol abuse and Wernicke's encephalopathy. Psychiatry determined that she is not competent to make her own medical decisions. History of PAT S/P AV ann ablation in the past Jul 2017- HR better 90s - stable BP readings HR up on exam- place back on telemetry -Decrease metoprolol 6.25 mg po bid 04/25-- increase t0 12.5 mg po bid 04/28 and monitor Altered mental status- Improved cooperative and appropriate -CT head negative, normal TSH, normal RPR, normal ammonia level -Consider Wernike's encephalopathy, continue folic acid and thiamine, continue seizure precautions -Psych declined admission, they feel this is alcohol-related -Continuing Seroquel 100 mg nightly -Psychiatry declined admission, they feel this is alcohol related, they declare patient is not competent to make her own decisions -Case management working on guardianship appointment to obtain accepting facility -Continues to have confusion. Family unwilling to take care of the patient. reveiwed meds- has not been getting Ativan prn since 02/05- - will discontinue from [facility] 04/26 Generalized weakness- improved, good po - up and ambulating -Continue to encourage physical activity such as walking around the unit -UA negative, no electrolyte imbalance noted Anemia- IMproved -On admission hgb 7.8, Hct 23.7, MCV 105.1 -Gastroenterology consulted, recommends outpatient follow-up -H&H improved, stable EtOH -Counseled on cessation -Continue vitamin D h/o COPD -Duo nebs as needed Hypertension -Continue beta-nela DVT Prop ambulatory Code Status: Full Code Discussed Condition With: Patient, nursing Discharge Planning: DC when arrangements are made. Difficult DC no placement. CM following (2) Anemia Qualifiers: Anemia type: unspecified type Qualified Code(s): D64.9 - Anemia, unspecified - Plan The patient is a 52 year old female with past medical history which includes Abnormal LFTs, EtOH abuse, chronic back pain, COPD, hypertension, SVT. Patient was brought to [facility] on 12/13 by friend for confusion x 2 weeks weakness and flu like symptoms. Patient was admitted to [facility] from 12/13/17 to 12/18/17 treated for metabolic encephalopathy related to UTI and then DC'd to [facility]. Patient was seen in the emergency department related to altered mentation and anemia . The patient at that time was had hemoglobin of 9.3 and her rectal examination was negative for blood. She was deemed safe for discharge with follow-up as an outpatient. Patient again presented to the ER 12/25/17 for increased altered mentation since falling at her fdc at approximately 8 :15 AM 12/25. The patient has a baseline history of altered mentation that is thought to be related to her history of alcohol abuse and Wernicke's encephalopathy. Psychiatry determined that she is not competent to make her own medical decisions. History of PAT S/P AV ann ablation in the past Jul 2017- Hypertension- controlled -Continue beta-nela on Lopressor 12.5 mg po bid Altered mental status- Improved cooperative and appropriate -CT head negative, normal TSH, normal RPR, normal ammonia level -Consider Wernike's encephalopathy, continue folic acid and thiamine, continue seizure precautions -Psych declined admission, they feel this is alcohol-related -Continuing Seroquel 100 mg nightly -Psychiatry declined admission, they feel this is alcohol related, they declare patient is not competent to make her own decisions -Case management working on guardianship appointment to obtain accepting facility -Continues to have confusion. Family unwilling to take care of the patient. reveiwed meds- has not been getting Ativan prn since 02/05- - discontinue from [facility] 04/26 Generalized weakness- improved, good po - up and ambulating -Continue to encourage physical activity such as walking around the unit -UA negative, no electrolyte imbalance noted Anemia- IMproved -On admission hgb 7.8, Hct 23.7, MCV 105.1 -Gastroenterology consulted, recommends outpatient follow-up -H&H improved, stable EtOH use -Counseled on cessation -Continue vitamin D h/o COPD -Duo nebs as needed DVT Prop ambulatory Code Status: Full Code Discussed Condition With: Patient, nursing Discharge Planning: DC when arrangements are made. Difficult DC no placement. CM following (2) Anemia Qualifiers: Anemia type: unspecified type Qualified Code(s): D64.9 - Anemia, unspecified
[2018-05-26] MEDS: QUEtiapine 25 MG Tablet PO SCH (21:12)
[2018-05-27] MEDS: Metoprolol Tartrate 25 MG Tablet PO SCH ×2 (08:21→21:01)
[2018-05-27] MEDS: Senna/Docusate Sodium 8.6/50 MG Tablet PO SCH ×2 (08:22→21:01)
--- NOTE | 2018-05-27 14:07 | P.PN ---
Subjective Interval history: Follow up on patient with encephalopathy. Patient seen and examined. Patient is asking where she is. She does not know why she is in the hospital. She does not know if she lives in [place]. She does not know the year. She reports feeling tired but has no other acute medical complaints. She denies any acute medical complaints. Physical Exam Vital signs: Vital Signs 05/26/18 20:00 05/27/18 08:00 Temperature 97.4 F L 97.3 F L Pulse Rate 88 59 L Respiratory Rate 18 20 Blood Pressure 115/75 97/64 L Pulse Oximetry 98 98 Intake & Output 05/26/18 05/27/18 05/27/18 18:59 06:59 18:59 Intake Total 720 / 720 Balance 720 / 720 Weight 55.1 kg Intake: Oral 720 / 720 Other: # Voids 4 Date of Last Bowel Movement 05/16/18 # Bowel Movements 1 Narrative: GENERAL: WDWN female INAD. Awake and alert. Oriented to self only. SKIN: Warm and dry. HEENT: Atraumatic. Normocephalic. Pupils equal and round. No scleral icterus. No injection or drainage. No nasal bleeding or discharge. Mucous membranes pink and moist. NECK: Trachea midline. CARDIOVASCULAR: Regular rate and rhythm. RESPIRATORY: No accessory muscle use. Clear to auscultation. Breath sounds equal bilaterally. GASTROINTESTINAL: Abdomen soft, non-tender, nondistended. MUSCULOSKELETAL: Extremities without clubbing, cyanosis, or edema. No obvious deformities. NEUROLOGICAL: Awake and alert. No obvious cranial nerve deficits. Motor grossly within normal limits. Able to move all extremities spontaneously. Normal speech. PSYCHIATRIC: Pleasant and cooperative. Results - Labs CBC & Chem 7: 05/07/18 06:45 05/07/18 06:45 Assessment and Plan - Assessment (1) Altered mental status Code(s): R41.82 - Altered mental status, unspecified Status: Chronic Plan: .. (2) Anemia Code(s): D64.9 - Anemia, unspecified Status: Chronic Plan: .. (3) Tachyarrhythmia Code(s): R00.0 - Tachycardia, unspecified Status: Chronic Plan: .. (4) COPD (chronic obstructive pulmonary disease) Code(s): J44.9 - Chronic obstructive pulmonary disease, unspecified Status: Chronic Plan: .. (5) HTN (hypertension) Code(s): I10 - Essential (primary) hypertension Status: Chronic Plan: The patient is a 52 year old female with past medical history which includes Abnormal LFTs, EtOH abuse, chronic back pain, COPD, hypertension, SVT. Patient was brought to [facility] on 12/13 by friend for confusion x 2 weeks weakness and flu like symptoms. Patient was admitted to [facility] from 12/13/17 to 12/18/17 treated for metabolic encephalopathy related to UTI and then DC'd to [facility]. Patient was seen in the emergency department related to altered mentation and anemia . The patient at that time was had hemoglobin of 9.3 and her rectal examination was negative for blood. She was deemed safe for discharge with follow-up as an outpatient. Patient again presented to the ER 12/25/17 for increased altered mentation since falling at her [facility] at approximately 8 :15 AM 12/25. The patient has a baseline history of altered mentation that is thought to be related to her history of alcohol abuse and Wernicke's encephalopathy. Psychiatry determined that she is not competent to make her own medical decisions. History of PAT S/P AV ann ablation in the past Jul 2017- HR better 90s - stable BP readings HR up on exam- place back on telemetry -Decrease metoprolol 6.25 mg po bid 04/25-- increase t0 12.5 mg po bid 04/28 and monitor Altered mental status- Improved cooperative and appropriate -CT head negative, normal TSH, normal RPR, normal ammonia level -Consider Wernike's encephalopathy, continue folic acid and thiamine, continue seizure precautions -Psych declined admission, they feel this is alcohol-related -Continuing Seroquel 100 mg nightly -Psychiatry declined admission, they feel this is alcohol related, they declare patient is not competent to make her own decisions -Case management working on guardianship appointment to obtain accepting facility -Continues to have confusion. Family unwilling to take care of the patient. reveiwed meds- has not been getting Ativan prn since 02/05- - will discontinue from [facility] 04/26 Generalized weakness- improved, good po - up and ambulating -Continue to encourage physical activity such as walking around the unit -UA negative, no electrolyte imbalance noted Anemia- IMproved -On admission hgb 7.8, Hct 23.7, MCV 105.1 -Gastroenterology consulted, recommends outpatient follow-up -H&H improved, stable EtOH -Counseled on cessation -Continue vitamin D h/o COPD -Duo nebs as needed Hypertension -Continue beta-nela DVT Prop ambulatory Code Status: Full Code Discussed Condition With: Patient, nursing Discharge Planning: DC when arrangements are made. Difficult DC no placement. CM following (2) Anemia Qualifiers: Anemia type: unspecified type Qualified Code(s): D64.9 - Anemia, unspecified .. 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 Patient was brought to [facility] on 12/13 by friend for confusion x 2 weeks weakness and flu like symptoms. Patient was admitted to [facility] from 12/13/17 to 12/18/17 treated for metabolic encephalopathy related to UTI and then DC'd to [facility]. Patient was seen in the emergency department related to altered mentation and anemia . The patient at that time was had hemoglobin of 9.3 and her rectal examination was negative for blood. She was deemed safe for discharge with follow-up as an outpatient. Patient again presented to the ER 12/25/17 for increased altered mentation since falling at her [facility] at approximately 8 :15 AM 12/25. The patient has a baseline history of altered mentation that is thought to be related to her history of alcohol abuse and Wernicke's encephalopathy. Psychiatry determined that she is not competent to make her own medical decisions. History of PAT S/P AV ann ablation in the past Jul 2017- HR better 90s - stable BP readings HR up on exam- place back on telemetry -Decrease metoprolol 6.25 mg po bid 04/25-- increase t0 12.5 mg po bid 04/28 and monitor Altered mental status- Improved cooperative and appropriate -CT head negative, normal TSH, normal RPR, normal ammonia level -Consider Wernike's encephalopathy, continue folic acid and thiamine, continue seizure precautions -Psych declined admission, they feel this is alcohol-related -Continuing Seroquel 100 mg nightly -Psychiatry declined admission, they feel this is alcohol related, they declare patient is not competent to make her own decisions -Case management working on guardianship appointment to obtain accepting facility -Continues to have confusion. Family unwilling to take care of the patient. reveiwed meds- has not been getting Ativan prn since 02/05- - will discontinue from [facility] 04/26 Generalized weakness- improved, good po - up and ambulating -Continue to encourage physical activity such as walking around the unit -UA negative, no electrolyte imbalance noted Anemia- IMproved -On admission hgb 7.8, Hct 23.7, MCV 105.1 -Gastroenterology consulted, recommends outpatient follow-up -H&H improved, stable EtOH -Counseled on cessation -Continue vitamin D h/o COPD -Duo nebs as needed Hypertension -Continue beta-nela DVT Prop ambulatory Code Status: Full Code Discussed Condition With: Patient, nursing Discharge Planning: DC when arrangements are made. Difficult DC no placement. CM following (2) Anemia Qualifiers: Anemia type: unspecified type Qualified Code(s): D64.9 - Anemia, unspecified - Plan 52 year old female with past medical history which includes Abnormal LFTs, EtOH abuse, chronic back pain, COPD, hypertension, SVT. Patient was brought to [facility] on 12/13 by friend for confusion x 2 weeks weakness and flu like symptoms. Patient was admitted to [facility] from 12/13/17 to 12/18/17 treated for metabolic encephalopathy related to UTI and then DC'd to [facility]. Patient was seen in the emergency department related to altered mentation and anemia 12/24/18. The patient at that time was had hemoglobin of 9.3 and her rectal examination was negative for blood. She was deemed safe for discharge with follow-up as an outpatient. Patient again presented to the ER 12/25/17 for increased altered mentation since falling at her [facility] at approximately 8:15 AM 12/25. The patient has a baseline history of altered mentation that is thought to be related to her history of alcohol abuse and Wernicke's encephalopathy. Psychiatry determined that she is not competent to make her own medical decisions. History of PAT S/P AV ann ablation in the past Jul 2017- HR better -BP low 97/64, ? due to Seroquel dose. Will decrease dose of Seroquel to 50mg nightly. Decrease metoprolol dose to 6.25mg BID with hold parameters -Continue to monitor heart rate Altered mental status- Improved cooperative and appropriate -CT head negative, normal TSH, normal RPR, normal ammonia level -Consider Wernike's encephalopathy, continue folic acid and thiamine, continue seizure precautions -Continuing Seroquel 100 mg nightly - changed to 50mg nightly due to low BP -Psychiatry declined admission, they feel this is alcohol related, they declare patient is not competent to make her own decisions -Case management working on guardianship appointment to obtain accepting facility -Continues to have confusion. Family unwilling to take care of the patient. Generalized weakness- improved, good po - up and ambulating -Continue to encourage physical activity such as walking around the unit -UA negative, no electrolyte imbalance noted Anemia- Improved -On admission hgb 7.8, Hct 23.7, MCV 105.1 -Gastroenterology consulted, recommends outpatient follow-up -H&H improved, stable EtOH -Counseled on cessation -Continue vitamin D h/o COPD, not in acute exacerbation -Duo nebs as needed Hypertension -Continue beta-nela Renal insufficiency -Creatinine appears to be at baseline -Avoid nephrotoxic agents -Monitor kidney function as indicated DVT Prop ambulatory Discussed Condition With: patient, nursing staff Discharge Planning: Difficult placement. CM assists with ongoing discharge planning. (2) Anemia Qualifiers: Anemia type: unspecified type Qualified Code(s): D64.9 - Anemia, unspecified
[2018-05-27] MEDS: QUEtiapine 25 MG Tablet PO SCH (21:01)
[2018-05-28] MEDS: Metoprolol Tartrate 25 MG Tablet PO SCH ×2 (08:05→21:05)
[2018-05-28] MEDS: Senna/Docusate Sodium 8.6/50 MG Tablet PO SCH ×2 (08:06→21:07)
--- NOTE | 2018-05-28 08:30 | P.PN ---
Subjective Interval history: no complains good po up and ambulating Physical Exam Vital signs: Vital Signs 05/27/18 20:00 Temperature 97.7 F Pulse Rate 78 Respiratory Rate 18 Blood Pressure 104/64 Pulse Oximetry 99 Intake & Output 05/27/18 05/28/18 05/28/18 18:59 06:59 18:59 Intake Total 1200 / 1200 440 / 440 Balance 1200 / 1200 440 / 440 Weight 57.7 kg Intake: Oral 1200 / 1200 440 / 440 Other: # Voids 5 2 Date of Last Bowel Movement 05/27/18 Narrative: GENERAL: WDWN female INAD. Awake and alert. on exam today- pleasant and cooperative, speech clear, oriented to person and place "hospital" knows the President "[place]" SKIN: Warm and dry. HEENT: Atraumatic. Normocephalic. Pupils equal and round. No scleral icterus. NMucous membranes pink and moist. NECK: Trachea midline. CARDIOVASCULAR: Regular rate and rhythm. RESPIRATORY: No accessory muscle use. Clear to auscultation. Breath sounds equal bilaterally. GASTROINTESTINAL: Abdomen soft, non-tender, nondistended. MUSCULOSKELETAL: Extremities without clubbing, cyanosis, or edema. No obvious deformities. NEUROLOGICAL: Awake and alert. No obvious cranial nerve deficits. Motor grossly within normal limits. Able to move all extremities spontaneously. Normal speech. gait steady PSYCHIATRIC: Pleasant and cooperative. Results - Labs CBC & Chem 7: 05/07/18 06:45 05/07/18 06:45 Assessment and Plan - Assessment (1) Altered mental status Code(s): R41.82 - Altered mental status, unspecified Status: Chronic Plan: .. (2) Anemia Code(s): D64.9 - Anemia, unspecified Status: Chronic Plan: .. (3) Tachyarrhythmia Code(s): R00.0 - Tachycardia, unspecified Status: Chronic Plan: .. (4) COPD (chronic obstructive pulmonary disease) Code(s): J44.9 - Chronic obstructive pulmonary disease, unspecified Status: Chronic Plan: .. (5) HTN (hypertension) Code(s): I10 - Essential (primary) hypertension Status: Chronic Plan: The patient is a 52 year old female with past medical history which includes Abnormal LFTs, EtOH abuse, chronic back pain, COPD, hypertension, SVT. Patient was brought to [facility] on 12/13 by friend for confusion x 2 weeks weakness and flu like symptoms. Patient was admitted to [facility] from 12/13/17 to 12/18/17 treated for metabolic encephalopathy related to UTI and then DC'd to [facility]. Patient was seen in the emergency department related to altered mentation and anemia . The patient at that time was had hemoglobin of 9.3 and her rectal examination was negative for blood. She was deemed safe for discharge with follow-up as an outpatient. Patient again presented to the ER 12/25/17 for increased altered mentation since falling at her shelter at approximately 8 :15 AM 12/25. The patient has a baseline history of altered mentation that is thought to be related to her history of alcohol abuse and Wernicke's encephalopathy. Psychiatry determined that she is not competent to make her own medical decisions. History of PAT S/P AV ann ablation in the past Jul 2017- HR better 90s - stable BP readings HR up on exam- place back on telemetry -Decrease metoprolol 6.25 mg po bid 04/25-- increase t0 12.5 mg po bid 04/28 and monitor Altered mental status- Improved cooperative and appropriate -CT head negative, normal TSH, normal RPR, normal ammonia level -Consider Wernike's encephalopathy, continue folic acid and thiamine, continue seizure precautions -Psych declined admission, they feel this is alcohol-related -Continuing Seroquel 100 mg nightly -Psychiatry declined admission, they feel this is alcohol related, they declare patient is not competent to make her own decisions -Case management working on guardianship appointment to obtain accepting facility -Continues to have confusion. Family unwilling to take care of the patient. reveiwed meds- has not been getting Ativan prn since 02/05- - will discontinue from [facility] 04/26 Generalized weakness- improved, good po - up and ambulating -Continue to encourage physical activity such as walking around the unit -UA negative, no electrolyte imbalance noted Anemia- IMproved -On admission hgb 7.8, Hct 23.7, MCV 105.1 -Gastroenterology consulted, recommends outpatient follow-up -H&H improved, stable EtOH -Counseled on cessation -Continue vitamin D h/o COPD -Duo nebs as needed Hypertension -Continue beta-nela DVT Prop ambulatory Code Status: Full Code Discussed Condition With: Patient, nursing Discharge Planning: DC when arrangements are made. Difficult DC no placement. CM following (2) Anemia Qualifiers: Anemia type: unspecified type Qualified Code(s): D64.9 - Anemia, unspecified .. 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 Patient was brought to [facility] on 12/13 by friend for confusion x 2 weeks weakness and flu like symptoms. Patient was admitted to [facility] from 12/13/17 to 12/18/17 treated for metabolic encephalopathy related to UTI and then DC'd to [facility]. Patient was seen in the emergency department related to altered mentation and anemia . The patient at that time was had hemoglobin of 9.3 and her rectal examination was negative for blood. She was deemed safe for discharge with follow-up as an outpatient. Patient again presented to the ER 12/25/17 for increased altered mentation since falling at her shelter at approximately 8 :15 AM 12/25. The patient has a baseline history of altered mentation that is thought to be related to her history of alcohol abuse and Wernicke's encephalopathy. Psychiatry determined that she is not competent to make her own medical decisions. History of PAT S/P AV ann ablation in the past Jul 2017- HR better 90s - stable BP readings HR up on exam- place back on telemetry -Decrease metoprolol 6.25 mg po bid 04/25-- increase t0 12.5 mg po bid 04/28 and monitor Altered mental status- Improved cooperative and appropriate -CT head negative, normal TSH, normal RPR, normal ammonia level -Consider Wernike's encephalopathy, continue folic acid and thiamine, continue seizure precautions -Psych declined admission, they feel this is alcohol-related -Continuing Seroquel 100 mg nightly -Psychiatry declined admission, they feel this is alcohol related, they declare patient is not competent to make her own decisions -Case management working on guardianship appointment to obtain accepting facility -Continues to have confusion. Family unwilling to take care of the patient. reveiwed meds- has not been getting Ativan prn since 02/05- - will discontinue from [facility] 04/26 Generalized weakness- improved, good po - up and ambulating -Continue to encourage physical activity such as walking around the unit -UA negative, no electrolyte imbalance noted Anemia- IMproved -On admission hgb 7.8, Hct 23.7, MCV 105.1 -Gastroenterology consulted, recommends outpatient follow-up -H&H improved, stable EtOH -Counseled on cessation -Continue vitamin D h/o COPD -Duo nebs as needed Hypertension -Continue beta-nela DVT Prop ambulatory Code Status: Full Code Discussed Condition With: Patient, nursing Discharge Planning: DC when arrangements are made. Difficult DC no placement. CM following (2) Anemia Qualifiers: Anemia type: unspecified type Qualified Code(s): D64.9 - Anemia, unspecified - Plan The patient is a 52 year old female with past medical history which includes Abnormal LFTs, EtOH abuse, chronic back pain, COPD, hypertension, SVT. Patient was brought to [facility] on 12/13 by friend for confusion x 2 weeks weakness and flu like symptoms. Patient was admitted to [facility] from 12/13/17 to 12/18/17 treated for metabolic encephalopathy related to UTI and then DC'd to [facility]. Patient was seen in the emergency department related to altered mentation and anemia . The patient at that time was had hemoglobin of 9.3 and her rectal examination was negative for blood. She was deemed safe for discharge with follow-up as an outpatient. Patient again presented to the ER 12/25/17 for increased altered mentation since falling at her shelter at approximately 8 :15 AM 12/25. The patient has a baseline history of altered mentation that is thought to be related to her history of alcohol abuse and Wernicke's encephalopathy. Psychiatry determined that she is not competent to make her own medical decisions. History of PAT S/P AV ann ablation in the past Jul 2017- Hypertension- controlled -Continue beta-nela on Lopressor 6.25 mg po bid Altered mental status- Improved -CT head negative, normal TSH, normal RPR, normal ammonia level Wernike's encephalopathy- pleasant and cooperative, appreciative of care she is getting , per staff- "she is a sweetheart" poor short term memory- Intermittent confusion but cooperative and not disruptive of care continue folic acid and thiamine, continue seizure precautions -Psych declined admission, they feel this is alcohol-related -Continuing Seroquel 100 mg nightly -Psychiatry declined admission, they feel this is alcohol related, they declare patient is not competent to make her own decisions -Case management working on guardianship appointment to obtain accepting facility Family unwilling to take care of the patient. reveiwed meds- has not been getting Ativan prn since 02/05- - discontinue from [facility] 04/26 Generalized weakness- improved, good po - up and ambulating -Continue to encourage physical activity such as walking around the unit -UA negative, no electrolyte imbalance noted Anemia- IMproved -On admission hgb 7.8, Hct 23.7, MCV 105.1 -Gastroenterology consulted, recommends outpatient follow-up -H&H improved, stable EtOH use -Counseled on cessation -Continue vitamin D h/o COPD -Duo nebs as needed DVT Prop ambulatory Code Status: Full Code Discussed Condition With: Patient, nursing Discharge Planning: DC when arrangements are made. Difficult DC no placement. CM following (2) Anemia Qualifiers: Anemia type: unspecified type Qualified Code(s): D64.9 - Anemia, unspecified
[2018-05-28] MEDS: QUEtiapine 25 MG Tablet PO SCH (21:06)
[2018-05-29] MEDS: Senna/Docusate Sodium 8.6/50 MG Tablet PO SCH ×2 (08:51→21:07)
[2018-05-29] MEDS: Metoprolol Tartrate 25 MG Tablet PO SCH ×3 (08:51→21:14)
--- NOTE | 2018-05-29 18:51 | P.PN ---
Subjective Interval history: Nursing denies any deterioration since last night. Pt seen ambulating in hallway. Physical Exam Vital signs: Vital Signs 05/28/18 20:00 05/29/18 08:00 Temperature 98.3 F 97.9 F Pulse Rate 73 73 Respiratory Rate 16 14 Blood Pressure 107/69 95/68 L Pulse Oximetry 97 96 Intake & Output 05/28/18 05/29/18 05/29/18 18:59 06:59 18:59 Intake Total 440 / 440 Balance 440 / 440 Weight 57.1 kg Intake: Oral 440 / 440 Other: # Voids 3 Date of Last Bowel Movement 05/27/18 Narrative: Patient ambulating through the hallway, in good spirits, no acute distress Results - Labs CBC & Chem 7: 05/07/18 06:45 05/07/18 06:45 Assessment and Plan - Assessment (1) Altered mental status Code(s): R41.82 - Altered mental status, unspecified Status: Chronic Plan: .. (2) Anemia Code(s): D64.9 - Anemia, unspecified Status: Chronic Plan: .. (3) Tachyarrhythmia Code(s): R00.0 - Tachycardia, unspecified Status: Chronic Plan: .. (4) COPD (chronic obstructive pulmonary disease) Code(s): J44.9 - Chronic obstructive pulmonary disease, unspecified Status: Chronic Plan: .. (5) HTN (hypertension) Code(s): I10 - Essential (primary) hypertension Status: Chronic Plan: The patient is a 52 year old female with past medical history which includes Abnormal LFTs, EtOH abuse, chronic back pain, COPD, hypertension, SVT. Patient was brought to [facility] on 12/13 by friend for confusion x 2 weeks weakness and flu like symptoms. Patient was admitted to [facility] from 12/13/17 to 12/18/17 treated for metabolic encephalopathy related to UTI and then DC'd to [facility]. Patient was seen in the emergency department related to altered mentation and anemia . The patient at that time was had hemoglobin of 9.3 and her rectal examination was negative for blood. She was deemed safe for discharge with follow-up as an outpatient. Patient again presented to the ER 12/25/17 for increased altered mentation [facility] The patient has a baseline history of altered mentation that is thought to be related to her history of alcohol abuse and Wernicke's encephalopathy. Psychiatry determined that she is not competent to make her own medical decisions. History of PAT S/P AV ann ablation in the past Jul 2017- HR better 90s - stable BP readings HR up on exam- place back on telemetry -Decrease metoprolol 6.25 mg po bid 04/25-- increase t0 12.5 mg po bid 04/28 and monitor Altered mental status- Improved cooperative and appropriate -CT head negative, normal TSH, normal RPR, normal ammonia level -Consider Wernike's encephalopathy, continue folic acid and thiamine, continue seizure precautions -Psych declined admission, they feel this is alcohol-related -Continuing Seroquel 100 mg nightly -Psychiatry declined admission, they feel this is alcohol related, they declare patient is not competent to make her own decisions -Case management working on guardianship appointment to obtain accepting facility -Continues to have confusion. Family unwilling to take care of the patient. reveiwed meds- has not been getting Ativan prn since 02/05- - will discontinue from [facility] 04/26 Generalized weakness- improved, good po - up and ambulating -Continue to encourage physical activity such as walking around the unit -UA negative, no electrolyte imbalance noted Anemia- IMproved -On admission hgb 7.8, Hct 23.7, MCV 105.1 -Gastroenterology consulted, recommends outpatient follow-up -H&H improved, stable EtOH -Counseled on cessation -Continue vitamin D h/o COPD -Duo nebs as needed Hypertension -Continue beta-nela DVT Prop ambulatory Code Status: Full Code Discussed Condition With: Patient, nursing Discharge Planning: DC when arrangements are made. Difficult DC no placement. CM following (2) Anemia Qualifiers: Anemia type: unspecified type Qualified Code(s): D64.9 - Anemia, unspecified .. 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 Patient was brought to [facility] on 12/13 by friend for confusion x 2 weeks weakness and flu like symptoms. Patient was admitted to [facility] from 12/13/17 to 12/18/17 treated for metabolic encephalopathy related to UTI and then DC'd to [facility]. Patient was seen in the emergency department related to altered mentation and anemia . The patient at that time was had hemoglobin of 9.3 and her rectal examination was negative for blood. She was deemed safe for discharge with follow-up as an outpatient. Patient again presented to the ER 12/25/17 for increased altered mentation since [facility] at approximately 8 :15 AM 12/25. The patient has a baseline history of altered mentation that is thought to be related to her history of alcohol abuse and Wernicke's encephalopathy. Psychiatry determined that she is not competent to make her own medical decisions. History of PAT S/P AV ann ablation in the past Jul 2017- HR better 90s - stable BP readings HR up on exam- place back on telemetry -Decrease metoprolol 6.25 mg po bid 04/25-- increase t0 12.5 mg po bid 04/28 and monitor Altered mental status- Improved cooperative and appropriate -CT head negative, normal TSH, normal RPR, normal ammonia level -Consider Wernike's encephalopathy, continue folic acid and thiamine, continue seizure precautions -Psych declined admission, they feel this is alcohol-related -Continuing Seroquel 100 mg nightly -Psychiatry declined admission, they feel this is alcohol related, they declare patient is not competent to make her own decisions -Case management working on guardianship appointment to obtain accepting facility -Continues to have confusion. Family unwilling to take care of the patient. reveiwed meds- has not been getting Ativan prn since 02/05- - will discontinue from [facility] 04/26 Generalized weakness- improved, good po - up and ambulating -Continue to encourage physical activity such as walking around the unit -UA negative, no electrolyte imbalance noted Anemia- IMproved -On admission hgb 7.8, Hct 23.7, MCV 105.1 -Gastroenterology consulted, recommends outpatient follow-up -H&H improved, stable EtOH -Counseled on cessation -Continue vitamin D h/o COPD -Duo nebs as needed Hypertension -Continue beta-nela DVT Prop ambulatory Code Status: Full Code Discussed Condition With: Patient, nursing Discharge Planning: DC when arrangements are made. Difficult DC no placement. CM following (2) Anemia Qualifiers: Anemia type: unspecified type Qualified Code(s): D64.9 - Anemia, unspecified - Plan (1) Altered mental status - The patient is a 52 year old female with past medical history which includes Abnormal LFTs, EtOH abuse, chronic back pain, COPD, hypertension, SVT. Patient was brought to [facility] on 12/13 by friend for confusion x 2 weeks weakness and flu like symptoms. Patient was admitted to [facility] from 12/13/17 to 12/18/17 treated for metabolic encephalopathy related to UTI and then DC'd to [facility]. Patient was seen in the emergency department related to altered mentation and anemia . The patient at that time was had hemoglobin of 9.3 and her rectal examination was negative for blood. She was deemed safe for discharge with follow-up as an outpatient. Patient again presented to the ER 12/25/17 for increased altered mentation since [facility] at approximately 8 :15 AM 12/25. The patient has a baseline history of altered mentation that is thought to be related to her history of alcohol abuse and Wernicke's encephalopathy. Psychiatry is to clear the patient not competent to make her own medical decisions. - CT head negative - Cont. folic acid and thiamine - Ammonia level 15 - TSH 3.710 - RPR nonreactive - EtOH use and review of prior records patient had been drinking 1.5-2 bottles of wine a day and had been decreasing intake. Patient has recently been admitted to [facility] possibility of EtOH withdrawal causing altered mental status. - PT evaluated - Appreciate Psych evaluation. They did not feel that the patient met criteria for involuntary psychiatric admission. It was felt that the pt may benefit from comprehensive inpatient/outpatient alcohol rehabilitation program. - Supportive care - DC order placed on 12/27/17- case management working on safe DC - CM has enlisted help from Adult Protective Services. No progress has been made to obtain an accepting facility. - Psychiatry re-evaluated 01/08/18- patient does not meet inpatient psych admission criteria - 02/10/18 increase Seroquel to 100 mg PO QHS - Re-consulted psych for competency evaluation, and they declared pt not competent to make her own medical decisions. - [place] Case Mgmt assisting with Medicaid disability application and discharge planning. (2) Anemia - On admission hgb 7.8, Hct 23.7, MCV 105.1 - patient does have hx of ETOH abuse - B12 359 and folic acid 12.2 - Iron 48, total iron-binding capacity 183, percent saturation 26.2 - GI was consulted for possible EGD but unable to get consent so was recommended for outpt followup (3) Hypomagnesemia - replace as warranted (4) Tachyarrhythmia - resolved - s/p EPS with ablation of AV re-entry node tachycardia Dr. Vazquez 2017 cont current bb dose (5) ETOH abuse -- thiamine and folic acid - seizure precautions (6) COPD (chronic obstructive pulmonary disease) - duonebs if needed (7) HTN (hypertension) - Blood pressure was elevated during admission - Pt was initially started on amlodipine 5 mg p.o. daily but with tachyarrhythmia the Norvasc was stopped and Metoprolol added - continue with BB with holding parameters. 05/29: no deteriorations or significant clinical changes overnight. (2) Anemia Qualifiers: Anemia type: unspecified type Qualified Code(s): D64.9 - Anemia, unspecified
[2018-05-29] MEDS: QUEtiapine 25 MG Tablet PO SCH (21:07)
[2018-05-30] MEDS: Metoprolol Tartrate 25 MG Tablet PO SCH ×2 (09:34→21:07)
[2018-05-30] MEDS: Senna/Docusate Sodium 8.6/50 MG Tablet PO SCH ×2 (09:35→21:07)
--- NOTE | 2018-05-30 14:23 | P.PN ---
Subjective Interval history: Nursing denies any deterioration since last night. Patient lying in bed, pleasant mood. Physical Exam Vital signs: Vital Signs 05/29/18 20:00 05/29/18 21:00 05/30/18 08:00 Temperature 97.9 F 97.5 F L Pulse Rate 101 H 92 H Respiratory Rate 18 18 Blood Pressure 97/69 L 106/69 124/77 Pulse Oximetry 100 99 Intake & Output 05/29/18 05/30/18 05/30/18 18:59 06:59 18:59 Weight 56.1 kg Other: # Voids 3 Date of Last Bowel Movement 05/27/18 05/27/18 Narrative: Heart sounds regular rate rhythm, no murmurs Results - Labs CBC & Chem 7: 05/07/18 06:45 05/07/18 06:45 Assessment and Plan - Assessment (1) Altered mental status Code(s): R41.82 - Altered mental status, unspecified Status: Chronic Plan: .. (2) Anemia Code(s): D64.9 - Anemia, unspecified Status: Chronic Plan: .. (3) Tachyarrhythmia Code(s): R00.0 - Tachycardia, unspecified Status: Chronic Plan: .. (4) COPD (chronic obstructive pulmonary disease) Code(s): J44.9 - Chronic obstructive pulmonary disease, unspecified Status: Chronic Plan: .. (5) HTN (hypertension) Code(s): I10 - Essential (primary) hypertension Status: Chronic Plan: (2) Anemia Qualifiers: Anemia type: unspecified type Qualified Code(s): D64.9 - Anemia, unspecified .. 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 Patient was brought to [facility] on 12/13 by friend for confusion x 2 weeks weakness and flu like symptoms. Patient was admitted to [facility] from 12/13/17 to 12/18/17 treated for metabolic encephalopathy related to UTI and then DC'd to [facility]. Patient was seen in the emergency department related to altered mentation and anemia . The patient at that time was had hemoglobin of 9.3 and her rectal examination was negative for blood. She was deemed safe for discharge with follow-up as an outpatient. Patient again presented to the ER 12/25/17 for increased altered mentation [facility] 8 :15 AM 12/25. he patient has a baseline history of confusion that is thought to be related to her history of alcohol abuse and Wernicke's encephalopathy. CT head negative, normal TSH RPR and ammonia results. Psychiatry determined that she is not competent to make her own medical decisions. GI recommended outpt f/ u for stable anemia. History of PAT S/P AV ann ablation in the past Jul 2017- Hypertension- controlled -Continue lopressor Wernike's encephalopathy- pleasant and cooperative, appreciative of care she is getting , per staff- "she is a sweetheart" poor short term memory- Intermittent confusion but cooperative and not disruptive of care continue folic acid and thiamine, continue seizure precautions -Psych declined admission, they feel this is alcohol-related -Continuing Seroquel 100 mg nightly -Psychiatry declined admission, they feel this is alcohol related, they declare patient is not competent to make her own decisions -Case management working on guardianship appointment to obtain accepting facility Family unwilling to take care of the patient. Anemia- -stable, outpt GI f/u EtOH use -Continue vitamin D h/o COPD -Duo nebs as needed DVT Prop ambulatory Code Status: Full Code Discharge Planning: DC when arrangements are made. Difficult DC no placement. CM following 05/30: no significant clinical changes. (2) Anemia Qualifiers: Anemia type: unspecified type Qualified Code(s): D64.9 - Anemia, unspecified
[2018-05-30] MEDS: QUEtiapine 25 MG Tablet PO SCH (21:07)
[2018-05-31] MEDS: Senna/Docusate Sodium 8.6/50 MG Tablet PO SCH ×2 (09:39→21:22)
[2018-05-31] MEDS: Metoprolol Tartrate 25 MG Tablet PO SCH ×2 (09:40→21:22)
--- NOTE | 2018-05-31 14:39 | P.PN ---
Subjective Interval history: Nursing denies any acute changes overnight. Patient offers no complaints. Physical Exam Vital signs: Vital Signs 05/30/18 20:00 05/31/18 08:00 Temperature 98.7 F 97.5 F L Pulse Rate 81 63 Respiratory Rate 18 16 Blood Pressure 110/67 101/56 L Pulse Oximetry 99 98 Intake & Output 05/30/18 05/31/18 05/31/18 18:59 06:59 18:59 Intake Total 480 / 480 1150 / 1150 Balance 480 / 480 1150 / 1150 Weight 55.8 kg Intake: Oral 480 / 480 1150 / 1150 Other: # Voids 1 5 Date of Last Bowel Movement 05/27/18 05/29/18 # Bowel Movements 0 Narrative: Heart sounds regular rate rhythm, no murmurs Lying in bed, awake, no acute distress Results - Labs CBC & Chem 7: 05/07/18 06:45 05/07/18 06:45 Assessment and Plan - Assessment (1) Altered mental status Code(s): R41.82 - Altered mental status, unspecified Status: Chronic Plan: .. (2) Anemia Code(s): D64.9 - Anemia, unspecified Status: Chronic Plan: .. (3) Tachyarrhythmia Code(s): R00.0 - Tachycardia, unspecified Status: Chronic Plan: .. (4) COPD (chronic obstructive pulmonary disease) Code(s): J44.9 - Chronic obstructive pulmonary disease, unspecified Status: Chronic Plan: .. (5) HTN (hypertension) Code(s): I10 - Essential (primary) hypertension Status: Chronic Plan: .. 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 Patient was brought to [facility] on 12/13 by friend for confusion x 2 weeks weakness and flu like symptoms. Patient was admitted to [facility] from 12/13/17 to 12/18/17 treated for metabolic encephalopathy related to UTI and then DC'd to [facility]. Patient was seen in the emergency department related to altered mentation and anemia . The patient at that time was had hemoglobin of 9.3 and her rectal examination was negative for blood. She was deemed safe for discharge with follow-up as an outpatient. Patient again presented to the ER 12/25/17 for increased altered mentation since [facility] at approximately 8 :15 AM 12/25. The patient has a baseline history of confusion that is thought to be related to her history of alcohol abuse and Wernicke's encephalopathy. CT head negative, normal TSH RPR and ammonia results. Psychiatry determined that she is not competent to make her own medical decisions. GI recommended outpt f/u for stable anemia. History of PAT S/P AV ann ablation in the past Jul 2017- Hypertension- controlled -Continue Lopressor Wernike's encephalopathy- pleasant and cooperative, appreciative of care she is getting , per staff- "she is a sweetheart" poor short term memory- Intermittent confusion but cooperative and not disruptive of care continue folic acid and thiamine, continue seizure precautions -Psych declined admission, they feel this is alcohol-related -Continuing Seroquel 100 mg nightly -Psychiatry declined admission, they feel this is alcohol related, they declare patient is not competent to make her own decisions -Case management working on guardianship appointment to obtain accepting facility -Family unwilling to take care of the patient. anemia- stable EtOH use -Continue vitamin D h/o COPD -Duo nebs as needed DVT Prop ambulatory Code Status: Full Code Discussed Condition With: Patient, nursing Discharge Planning: DC when arrangements are made. Difficult DC no placement. CM following 05/31: no significant clinical changes. (2) Anemia Qualifiers: Anemia type: unspecified type Qualified Code(s): D64.9 - Anemia, unspecified
[2018-05-31] MEDS: QUEtiapine 25 MG Tablet PO SCH (21:22)
[2018-06-01] MEDS: Senna/Docusate Sodium 8.6/50 MG Tablet PO SCH ×2 (09:03→20:54)
[2018-06-01] MEDS: Metoprolol Tartrate 25 MG Tablet PO SCH ×2 (09:03→20:52)
--- NOTE | 2018-06-01 14:32 | P.PN ---
Subjective Interval history: No acute events noted overnight. Patient herself is looking outside the window. Physical Exam Vital signs: Vital Signs 05/31/18 20:00 06/01/18 08:00 Temperature 97.7 F 97.5 F L Pulse Rate 94 H 89 Respiratory Rate 21 18 Blood Pressure 118/61 107/60 Pulse Oximetry 96 99 Intake & Output 05/31/18 06/01/18 06/01/18 18:59 06:59 18:59 Intake Total 480 / 480 Balance 480 / 480 Weight 55.8 kg Intake: Oral 480 / 480 Other: # Voids 4 Date of Last Bowel Movement 05/30/18 05/30/18 Narrative: Patient in her room, awake, alert, staring outside the window, no acute distress , unlabored breathing Results - Labs CBC & Chem 7: 05/07/18 06:45 05/07/18 06:45 Assessment and Plan - Assessment (1) Altered mental status Code(s): R41.82 - Altered mental status, unspecified Status: Chronic (2) Anemia Code(s): D64.9 - Anemia, unspecified Status: Chronic (3) Tachyarrhythmia Code(s): R00.0 - Tachycardia, unspecified Status: Chronic (4) COPD (chronic obstructive pulmonary disease) Code(s): J44.9 - Chronic obstructive pulmonary disease, unspecified Status: Chronic (5) HTN (hypertension) Code(s): I10 - Essential (primary) hypertension Status: Chronic (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 Patient was brought to [facility] on 12/13 by friend for confusion x 2 weeks weakness and flu like symptoms. Patient was admitted to [facility] from 12/13/17 to 12/18/17 treated for metabolic encephalopathy related to UTI and then DC'd to [facility]. Patient was seen in the emergency department related to altered mentation and anemia . The patient at that time was had hemoglobin of 9.3 and her rectal examination was negative for blood. She was deemed safe for discharge with follow-up as an outpatient. Patient again presented to the ER 12/25/17 for increased altered mentation since [facility] at approximately 8 :15 AM 12/25. he patient has a baseline history of confusion that is thought to be related to her history of alcohol abuse and Wernicke's encephalopathy. CT head negative, normal TSH RPR and ammonia results. Psychiatry determined that she is not competent to make her own medical decisions. GI recommended outpt f/ u for stable anemia. History of PAT S/P AV ann ablation in the past Jul 2017- Hypertension- controlled -Continue lopressor Wernike's encephalopathy- pleasant and cooperative, appreciative of care she is getting , per staff- "she is a sweetheart" poor short term memory- Intermittent confusion but cooperative and not disruptive of care continue folic acid and thiamine, continue seizure precautions -Psych declined admission, they feel this is alcohol-related -Continuing Seroquel 100 mg nightly -Psychiatry declined admission, they feel this is alcohol related, they declare patient is not competent to make her own decisions -Case management working on guardianship appointment to obtain accepting facility Family unwilling to take care of the patient. Anemia- -stable, outpt GI f/u EtOH use -Continue vitamin D h/o COPD -Duo nebs as needed DVT Prop ambulatory Code Status: Full Code Discharge Planning: DC when arrangements are made. Difficult DC no placement. CM following 06/01: no significant clinical changes. Resting comfortably (2) Anemia Qualifiers: Anemia type: unspecified type Qualified Code(s): D64.9 - Anemia, unspecified
[2018-06-01] MEDS: QUEtiapine 25 MG Tablet PO SCH (20:54)
[2018-06-02] MEDS: Metoprolol Tartrate 25 MG Tablet PO SCH ×2 (08:50→20:52)
[2018-06-02] MEDS: Senna/Docusate Sodium 8.6/50 MG Tablet PO SCH ×2 (08:50→20:50)
--- NOTE | 2018-06-02 14:28 | P.PN ---
Subjective Interval history: Nursing denies any deterioration since last night. Patient herself is sleeping , easily awoken in no acute distress. Physical Exam Vital signs: Vital Signs 06/01/18 20:00 06/02/18 08:00 Temperature 98.1 F 97.6 F Pulse Rate 69 72 Respiratory Rate 18 20 Blood Pressure 122/71 123/62 Pulse Oximetry 100 96 Intake & Output 06/01/18 06/02/18 06/02/18 18:59 06:59 18:59 Intake Total 210 / 210 Balance 210 / 210 Weight 56 kg Intake: Oral 210 / 210 Other: # Voids 1 Date of Last Bowel Movement 05/30/18 Narrative: Heart sounds regular rate rhythm Results - Labs CBC & Chem 7: 05/07/18 06:45 05/07/18 06:45 Assessment and Plan - Assessment (1) Altered mental status Code(s): R41.82 - Altered mental status, unspecified Status: Chronic Plan: .. (2) Anemia Code(s): D64.9 - Anemia, unspecified Status: Chronic Plan: .. (3) Tachyarrhythmia Code(s): R00.0 - Tachycardia, unspecified Status: Chronic Plan: .. (4) COPD (chronic obstructive pulmonary disease) Code(s): J44.9 - Chronic obstructive pulmonary disease, unspecified Status: Chronic Plan: .. (5) HTN (hypertension) Code(s): I10 - Essential (primary) hypertension Status: Chronic Plan: (2) Anemia Qualifiers: Anemia type: unspecified type Qualified Code(s): D64.9 - Anemia, unspecified .. 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 Patient was brought to [facility] on 12/13 by friend for confusion x 2 weeks weakness and flu like symptoms. Patient was admitted to [facility] from 12/13/17 to 12/18/17 treated for metabolic encephalopathy related to UTI and then DC'd to [facility]. Patient was seen in the emergency department related to altered mentation and anemia . The patient at that time was had hemoglobin of 9.3 and her rectal examination was negative for blood. She was deemed safe for discharge with follow-up as an outpatient. Patient again presented to the ER 12/25/17 for increased altered mentation since [facility] at approximately 8 :15 AM 12/25. he patient has a baseline history of confusion that is thought to be related to her history of alcohol abuse and Wernicke's encephalopathy. CT head negative, normal TSH RPR and ammonia results. Psychiatry determined that she is not competent to make her own medical decisions. GI recommended outpt f/ u for stable anemia. History of PAT S/P AV ann ablation in the past Jul 2017- Hypertension- controlled -Continue lopressor Wernike's encephalopathy- pleasant and cooperative, appreciative of care she is getting poor short term memory- Intermittent confusion but cooperative and not disruptive of care continue folic acid and thiamine, continue seizure precautions -Psych declined admission, they feel this is alcohol-related -Continuing Seroquel -Psychiatry declined admission, they feel this is alcohol related, they declare patient is not competent to make her own decisions -Case management working on guardianship appointment to obtain accepting facility Family unwilling to take care of the patient. Anemia- -stable, outpt GI f/u EtOH use -Continue vitamin D h/o COPD -Duo nebs as needed DVT Prop ambulatory Code Status: Full Code Discharge Planning: DC when arrangements are made. Difficult DC no placement. CM following 06/02: no significant clinical changes. Resting comfortably (2) Anemia Qualifiers: Anemia type: unspecified type Qualified Code(s): D64.9 - Anemia, unspecified
[2018-06-02] MEDS: QUEtiapine 25 MG Tablet PO SCH (20:50)
[2018-06-03] MEDS: Senna/Docusate Sodium 8.6/50 MG Tablet PO SCH ×2 (08:29→20:50)
[2018-06-03] MEDS: Metoprolol Tartrate 25 MG Tablet PO SCH ×2 (08:29→20:50)
--- NOTE | 2018-06-03 16:07 | P.PN ---
Subjective Interval history: No acute events reported overnight. Patient is very receptive to examination Physical Exam Vital signs: Vital Signs 06/02/18 20:00 06/03/18 08:00 Temperature 97.9 F 97.6 F Pulse Rate 93 H 68 Respiratory Rate 18 16 Blood Pressure 114/79 121/69 Pulse Oximetry 99 99 Narrative: Heart sounds regular rate rhythm, lying in bed, sleeping, easily woken, no acute distress Results - Labs CBC & Chem 7: 05/07/18 06:45 05/07/18 06:45 Assessment and Plan - Assessment (1) Altered mental status Code(s): R41.82 - Altered mental status, unspecified Status: Chronic Plan: .. (2) Anemia Code(s): D64.9 - Anemia, unspecified Status: Chronic Plan: .. (3) Tachyarrhythmia Code(s): R00.0 - Tachycardia, unspecified Status: Chronic Plan: .. (4) COPD (chronic obstructive pulmonary disease) Code(s): J44.9 - Chronic obstructive pulmonary disease, unspecified Status: Chronic Plan: .. (5) HTN (hypertension) Code(s): I10 - Essential (primary) hypertension Status: Chronic Plan: (2) Anemia Qualifiers: Anemia type: unspecified type Qualified Code(s): D64.9 - Anemia, unspecified .. 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 Patient was brought to [facility] on 12/13 by friend for confusion x 2 weeks weakness and flu like symptoms. Patient was admitted to [facility] from 12/13/17 to 12/18/17 treated for metabolic encephalopathy related to UTI and then DC'd to [facility]. Patient was seen in the emergency department related to altered mentation and anemia . The patient at that time was had hemoglobin of 9.3 and her rectal examination was negative for blood. She was deemed safe for discharge with follow-up as an outpatient. Patient again presented to the ER 12/25/17 for increased altered mentation since [facility] at [facility] :15 AM 12/[facility]. he patient has a baseline history of confusion that is thought to be related to her history of alcohol abuse and Wernicke's encephalopathy. CT head negative, normal TSH RPR and ammonia results. Psychiatry determined that she is not competent to make her own medical decisions. GI recommended outpt f/ u for stable anemia. History of PAT S/P AV ann ablation in the past Jul 2017- Hypertension- controlled -Continue lopressor Wernike's encephalopathy- pleasant and cooperative, appreciative of care she is getting poor short term memory- Intermittent confusion but cooperative and not disruptive of care continue folic acid and thiamine, continue seizure precautions -Psych declined admission, they feel this is alcohol-related -Continuing Seroquel -Psychiatry declined admission, they feel this is alcohol related, they declare patient is not competent to make her own decisions -Case management working on guardianship appointment to obtain accepting facility Family unwilling to take care of the patient. Anemia- -stable, outpt GI f/u EtOH use -Continue vitamin D h/o COPD -Duo nebs as needed DVT Prop ambulatory Code Status: Full Code Discharge Planning: DC when arrangements are made. Difficult DC no placement. CM following 06/03: no clinical changes. Resting (2) Anemia Qualifiers: Anemia type: unspecified type Qualified Code(s): D64.9 - Anemia, unspecified
[2018-06-03] MEDS: QUEtiapine 25 MG Tablet PO SCH (20:49)
[2018-06-04] MEDS: Metoprolol Tartrate 25 MG Tablet PO SCH ×2 (08:37→20:12)
[2018-06-04] MEDS: Senna/Docusate Sodium 8.6/50 MG Tablet PO SCH ×2 (08:37→20:12)
--- NOTE | 2018-06-04 10:44 | P.PN ---
Subjective Interval history: Follow-up altered mental status,EtOH, anemia, general weakness and hypertension. Patient seen and examined laying in bed, sleeping, awakes to voice. Oriented x2. Forgetful, asking how long she has been in hospital. Has no complaints. Physical Exam Vital signs: Vital Signs 06/03/18 20:00 06/04/18 08:00 Temperature 97.7 F 97.7 F Pulse Rate 87 68 Respiratory Rate 18 17 Blood Pressure 114/87 106/57 L Pulse Oximetry 95 100 Intake & Output 06/03/18 06/04/18 06/04/18 18:59 06:59 18:59 Intake Total 365 / 365 Balance 365 / 365 Weight 56.5 kg Intake: Oral Other: # Voids 3 Narrative: GENERAL: Well-nourished, well-developed patient in no apparent distress. SKIN: Warm and dry. HEAD: Atraumatic. Normocephalic. EYES: Pupils equal and round. No scleral icterus. No injection or drainage. ENT: No nasal bleeding or discharge. Mucous membranes pink and moist. NECK: Trachea midline. No JVD. CARDIOVASCULAR: Regular rate and rhythm. RESPIRATORY: No accessory muscle use. Clear to auscultation. Breath sounds equal bilaterally. GASTROINTESTINAL: Abdomen soft, non-tender, nondistended. Hepatic and splenic margins not palpable. MUSCULOSKELETAL: Extremities without clubbing, cyanosis, or edema. No obvious deformities. NEUROLOGICAL: Awakes to voice, oriented x2. No focal deficit PSYCHIATRIC: Forgetful, cooperative with care. Results - Labs CBC & Chem 7: 05/07/18 06:45 05/07/18 06:45 Assessment and Plan - Assessment (1) Altered mental status Code(s): R41.82 - Altered mental status, unspecified Status: Chronic Plan: .. (2) Anemia Code(s): D64.9 - Anemia, unspecified Status: Chronic Plan: .. (3) Tachyarrhythmia Code(s): R00.0 - Tachycardia, unspecified Status: Chronic Plan: .. (4) COPD (chronic obstructive pulmonary disease) Code(s): J44.9 - Chronic obstructive pulmonary disease, unspecified Status: Chronic Plan: .. (5) HTN (hypertension) Code(s): I10 - Essential (primary) hypertension Status: Chronic Plan: (2) Anemia Qualifiers: Anemia type: unspecified type Qualified Code(s): D64.9 - Anemia, unspecified .. 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 Patient was brought to [facility] on 12/13 by friend for confusion x 2 weeks weakness and flu like symptoms. Patient was admitted to [facility] from 12/13/17 to 12/18/17 treated for metabolic encephalopathy related to UTI and then DC'd to [facility]. Patient was seen in the emergency department related to altered mentation and anemia 12/24/18. The patient at that time was had hemoglobin of 9.3 and her rectal examination was negative for blood. She was deemed safe for discharge with follow-up as an outpatient. Patient again presented to the ER 12/25/17 for increased altered mentation since falling at her assisted at approximately 8:15 AM 12/25. The patient has a baseline history of altered mentation that is thought to be related to her history of alcohol abuse and Wernicke's encephalopathy. Psychiatry determined that she is not competent to make her own medical decisions. 06/04/2018-no acute changes overnight, pt. stable History of PAT /Hypertension S/P AV ann ablation in the past Jul 2017 No chest pain, no shortness of breath -Continue on low-dose metoprolol 6.25 mg po bid -hold parameters in place. -stable, telemetry was discontinued Acute kidney injury on chronic -Creatinine 1.41 -Avoid nephrotoxins -Encourage increase fluid intake -monitor BMP intermittently. Altered mental status- Improved cooperative and appropriate -CT head negative, normal TSH, normal RPR, normal ammonia level -Consider Wernicke's encephalopathy, continue folic acid and thiamine, continue seizure precautions -Psych declined admission, they feel this is alcohol-related. Not competent to make decisions. -Continuing Seroquel 100 mg nightly -Case management working on guardianship appointment to obtain accepting facility -Continues to have confusion. Family unwilling to take care of the patient. Generalized weakness - improved, up and ambulating -Continue to encourage physical activity such as walking around the unit -UA negative, no electrolyte imbalance noted -Staff to encourage and remind patient at mealtimes to increase p.o. intake Anemia -Recent hgb 11.2, Hct 33.6, MCV 87.4 -Gastroenterology consulted, recommends outpatient follow-up -H&H improved, stable -monitor CBC EtOH -Counseled on cessation -Continue vitamin D h/o COPD no SOB -Duonebs as needed DVT Prophylaxis: ambulatory Code Status: Full code Discussed Condition With: RN, pt, CM Discharge Planning: Waiting for placement (2) Anemia Qualifiers: Anemia type: unspecified type Qualified Code(s): D64.9 - Anemia, unspecified
[2018-06-04] MEDS: QUEtiapine 25 MG Tablet PO SCH (20:12)
[2018-06-05] MEDS: Senna/Docusate Sodium 8.6/50 MG Tablet PO SCH ×2 (08:34→20:19)
[2018-06-05] MEDS: Metoprolol Tartrate 25 MG Tablet PO SCH ×2 (08:34→20:19)
--- NOTE | 2018-06-05 13:59 | P.PN ---
Subjective Interval history: Follow-up altered mental status,EtOH, anemia, general weakness and hypertension. Patient seen and examined laying in bed, forgetful. Has no complaints. No acute changes overnight Physical Exam Vital signs: Vital Signs 06/04/18 20:00 Temperature 98.1 F Pulse Rate 79 Respiratory Rate 16 Blood Pressure 110/74 Pulse Oximetry 99 Intake & Output 06/04/18 06/05/18 06/05/18 18:59 06:59 18:59 Intake Total 560 / 560 Balance 560 / 560 Weight 54.7 kg Intake: Oral 560 / 560 Other: # Voids 5 # Bowel Movements 1 Narrative: GENERAL: Well-nourished, well-developed patient in no apparent distress. SKIN: Warm and dry. HEAD: Atraumatic. Normocephalic. EYES: Pupils equal and round. No scleral icterus. No injection or drainage. ENT: No nasal bleeding or discharge. Mucous membranes pink and moist. NECK: Trachea midline. No JVD. CARDIOVASCULAR: Regular rate and rhythm. RESPIRATORY: No accessory muscle use. Clear to auscultation. Breath sounds equal bilaterally. GASTROINTESTINAL: Abdomen soft, non-tender, nondistended. Hepatic and splenic margins not palpable. MUSCULOSKELETAL: Extremities without clubbing, cyanosis, or edema. No obvious deformities. NEUROLOGICAL: Awakes to voice, oriented x2. No focal deficit PSYCHIATRIC: Forgetful, cooperative with care. Results - Labs CBC & Chem 7: 05/07/18 06:45 05/07/18 06:45 Assessment and Plan - Assessment (1) Altered mental status Code(s): R41.82 - Altered mental status, unspecified Status: Chronic Plan: .. (2) Anemia Code(s): D64.9 - Anemia, unspecified Status: Chronic Plan: .. (3) Tachyarrhythmia Code(s): R00.0 - Tachycardia, unspecified Status: Chronic Plan: .. (4) COPD (chronic obstructive pulmonary disease) Code(s): J44.9 - Chronic obstructive pulmonary disease, unspecified Status: Chronic Plan: .. (5) HTN (hypertension) Code(s): I10 - Essential (primary) hypertension Status: Chronic Plan: (2) Anemia Qualifiers: Anemia type: unspecified type Qualified Code(s): D64.9 - Anemia, unspecified .. 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 Patient was brought to [facility] on 12/13 by friend for confusion x 2 weeks weakness and flu like symptoms. Patient was admitted to [facility] from 12/13/17 to 12/18/17 treated for metabolic encephalopathy related to UTI and then DC'd to [facility]. Patient was seen in the emergency department related to altered mentation and anemia 12/24/18. The patient at that time was had hemoglobin of 9.3 and her rectal examination was negative for blood. She was deemed safe for discharge with follow-up as an outpatient. Patient again presented to the ER 12/25/17 for increased altered mentation since falling at her [facility]way at approximately 8:15 AM 12/25. The patient has a baseline history of altered mentation that is thought to be related to her history of alcohol abuse and Wernicke's encephalopathy. Psychiatry determined that she is not competent to make her own medical decisions. 06/04/2018-no acute changes overnight, pt. stable 06/05/2018-no changes History of PAT /Hypertension S/P AV ann ablation in the past Jul 2017 No chest pain, no shortness of breath -Continue on low-dose metoprolol 6.25 mg po bid -hold parameters in place. -stable, telemetry was discontinued Acute kidney injury on chronic -Creatinine 1.41 -Avoid nephrotoxins -Encourage increase fluid intake -monitor BMP intermittently. Altered mental status- Improved cooperative and appropriate -CT head negative, normal TSH, normal RPR, normal ammonia level -Consider Wernicke's encephalopathy, continue folic acid and thiamine, continue seizure precautions -Psych declined admission, they feel this is alcohol-related. Not competent to make decisions. -Continuing Seroquel 100 mg nightly -Case management working on guardianship appointment to obtain accepting facility -Continues to have confusion. Family unwilling to take care of the patient. Generalized weakness - improved, up and ambulating -Continue to encourage physical activity such as walking around the unit -UA negative, no electrolyte imbalance noted -Staff to encourage and remind patient at mealtimes to increase p.o. intake Anemia -Recent hgb 11.2, Hct 33.6, MCV 87.4 -Gastroenterology consulted, recommends outpatient follow-up -H&H improved, stable -monitor CBC EtOH -Counseled on cessation -Continue vitamin D h/o COPD no SOB -Duonebs as needed DVT Prophylaxis: ambulatory Code Status: Full code Discussed Condition With: RN, pt, CM Discharge Planning: Waiting for placement (2) Anemia Qualifiers: Anemia type: unspecified type Qualified Code(s): D64.9 - Anemia, unspecified
[2018-06-05] MEDS: QUEtiapine 25 MG Tablet PO SCH (20:19)
[2018-06-06] MEDS: Metoprolol Tartrate 25 MG Tablet PO SCH ×2 (08:35→20:15)
[2018-06-06] MEDS: Senna/Docusate Sodium 8.6/50 MG Tablet PO SCH ×2 (08:36→20:15)
--- NOTE | 2018-06-06 15:22 | P.PN ---
Subjective Interval history: Follow-up altered mental status,EtOH, anemia, general weakness and hypertension. Patient seen and examined laying in bed, forgetful. Awakes to voice, no complaints Physical Exam Vital signs: Vital Signs 06/05/18 20:00 06/06/18 08:00 Temperature 98.1 F 97.6 F Pulse Rate 104 H 73 Respiratory Rate 16 16 Blood Pressure 122/78 125/74 Pulse Oximetry 97 98 Intake & Output 06/05/18 06/06/18 06/06/18 18:59 06:59 18:59 Intake Total 840 / 840 240 / 240 Balance 840 / 840 240 / 240 Weight 55.1 kg Intake: Oral 840 / 840 240 / 240 Other: # Voids 1 2 Date of Last Bowel Movement 06/04/18 # Bowel Movements 0 0 Narrative: GENERAL: Well-nourished, well-developed patient in no apparent distress. SKIN: Warm and dry. HEAD: Atraumatic. Normocephalic. EYES: Pupils equal and round. No scleral icterus. No injection or drainage. ENT: No nasal bleeding or discharge. Mucous membranes pink and moist. NECK: Trachea midline. No JVD. CARDIOVASCULAR: Regular rate and rhythm. RESPIRATORY: No accessory muscle use. Clear to auscultation. Breath sounds equal bilaterally. GASTROINTESTINAL: Abdomen soft, non-tender, nondistended. Hepatic and splenic margins not palpable. MUSCULOSKELETAL: Extremities without clubbing, cyanosis, or edema. No obvious deformities. NEUROLOGICAL: Awakes to voice, oriented x2. No focal deficit PSYCHIATRIC: Forgetful, cooperative with care. Results - Labs CBC & Chem 7: 05/07/18 06:45 05/07/18 06:45 Assessment and Plan - Assessment (1) Altered mental status Code(s): R41.82 - Altered mental status, unspecified Status: Chronic Plan: .. (2) Anemia Code(s): D64.9 - Anemia, unspecified Status: Chronic Plan: .. (3) Tachyarrhythmia Code(s): R00.0 - Tachycardia, unspecified Status: Chronic Plan: .. (4) COPD (chronic obstructive pulmonary disease) Code(s): J44.9 - Chronic obstructive pulmonary disease, unspecified Status: Chronic Plan: .. (5) HTN (hypertension) Code(s): I10 - Essential (primary) hypertension Status: Chronic Plan: (2) Anemia Qualifiers: Anemia type: unspecified type Qualified Code(s): D64.9 - Anemia, unspecified .. 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 Patient was brought to [facility] on 12/13 by friend for confusion x 2 weeks weakness and flu like symptoms. Patient was admitted to [facility] from 12/13/17 to 12/18/17 treated for metabolic encephalopathy related to UTI and then DC'd to [facility]. Patient was seen in the emergency department related to altered mentation and anemia 12/24/18. The patient at that time was had hemoglobin of 9.3 and her rectal examination was negative for blood. She was deemed safe for discharge with follow-up as an outpatient. Patient again presented to the ER 12/25/17 for increased altered mentation since falling at her care home at approximately 8:15 AM 12/25. The patient has a baseline history of altered mentation that is thought to be related to her history of alcohol abuse and Wernicke's encephalopathy. Psychiatry determined that she is not competent to make her own medical decisions. 06/04/2018-no acute changes overnight, pt. stable 06/05/2018-no changes 06/06/2018-no acute changes. History of PAT /Hypertension S/P AV ann ablation in the past Jul 2017 No chest pain, no shortness of breath -Continue on low-dose metoprolol 6.25 mg po bid -hold parameters in place. -stable, telemetry was discontinued Acute kidney injury on chronic -Creatinine 1.41 -Avoid nephrotoxins -Encourage increase fluid intake -monitor BMP intermittently. Altered mental status- Improved cooperative and appropriate -CT head negative, normal TSH, normal RPR, normal ammonia level -Consider Wernicke's encephalopathy, continue folic acid and thiamine, continue seizure precautions -Psych declined admission, they feel this is alcohol-related. Not competent to make decisions. -Continuing Seroquel 100 mg nightly -Case management working on guardianship appointment to obtain accepting facility -Continues to have confusion. Family unwilling to take care of the patient. Generalized weakness - improved, up and ambulating -Continue to encourage physical activity such as walking around the unit -UA negative, no electrolyte imbalance noted -Staff to encourage and remind patient at mealtimes to increase p.o. intake Anemia -Recent hgb 11.2, Hct 33.6, MCV 87.4 -Gastroenterology consulted, recommends outpatient follow-up -H&H improved, stable -monitor CBC EtOH -Counseled on cessation -Continue vitamin D h/o COPD no SOB -Duonebs as needed DVT Prophylaxis: ambulatory Check BMP and CBC in am Code Status: Full code Discussed Condition With: RN, pt , Cm Discharge Planning: Waiting for placement (2) Anemia Qualifiers: Anemia type: unspecified type Qualified Code(s): D64.9 - Anemia, unspecified
[2018-06-06] MEDS: QUEtiapine 25 MG Tablet PO SCH (20:14)
[2018-06-07] MEDS: Senna/Docusate Sodium 8.6/50 MG Tablet PO SCH ×2 (08:00→21:47)
[2018-06-07] MEDS: Metoprolol Tartrate 25 MG Tablet PO SCH ×2 (08:00→21:47)
[2018-06-07 08:56] LABS: Hematocrit 31.8 % (35.0-46.0); Mean Corpuscular HGB Conc 34.4 % (32.0-36.0); Mean Corpuscular Volume 89.9 fL (80.0-100.0); Mean Platelet Volume 9.2 fL (7.0-11.0); Platelet Count 196 th/mm3 (150-450); Red Blood Count 3.54 mil/mm3 (4.00-5.30); Red Cell Distribution Width 14.8 % (11.6-17.2); White Blood Count 5.1 th/mm3 (4.0-11.0)
[2018-06-07 09:24] LABS: Calcium 9.8 mg/dL (8.5-10.1); Carbon Dioxide 29.5 meq/L (21.0-32.0); Potassium 3.6 meq/L (3.5-5.1)
--- NOTE | 2018-06-07 12:45 | P.PN ---
Subjective Interval history: Follow-up altered mental status,EtOH, anemia, general weakness and hypertension. Patient seen and examined laying in bed, awakes to voice. No fever. No acute changes overnight. Physical Exam Vital signs: Vital Signs 06/06/18 20:00 06/07/18 08:00 Temperature 97.9 F 98.0 F Pulse Rate 86 91 H Respiratory Rate 14 18 Blood Pressure 109/69 108/73 Pulse Oximetry 98 93 L Intake & Output 06/06/18 06/07/18 06/07/18 18:59 06:59 18:59 Intake Total 240 / 240 Balance 240 / 240 Weight 55.3 kg Intake: Oral 240 / 240 Other: # Voids 2 # Bowel Movements 0 Narrative: GENERAL: Well-nourished, well-developed patient in no apparent distress. SKIN: Warm and dry. HEAD: Atraumatic. Normocephalic. EYES: Pupils equal and round. No scleral icterus. No injection or drainage. ENT: No nasal bleeding or discharge. Mucous membranes pink and moist. NECK: Trachea midline. No JVD. CARDIOVASCULAR: Regular rate and rhythm. RESPIRATORY: No accessory muscle use. Clear to auscultation. Breath sounds equal bilaterally. GASTROINTESTINAL: Abdomen soft, non-tender, nondistended. Hepatic and splenic margins not palpable. MUSCULOSKELETAL: Extremities without clubbing, cyanosis, or edema. No obvious deformities. NEUROLOGICAL: Awakes to voice, oriented x2. No focal deficit PSYCHIATRIC: Forgetful, cooperative with care. Results - Labs CBC & Chem 7: 06/07/18 07:51 06/07/18 07:51 Laboratory Results - last 24 hr 06/07/18 06/07/18 07:51 07:51 WBC 5.1 RBC 3.54 L Hgb 11.0 L Hct 31.8 L MCV 89.9 MCH 31.0 MCHC 34.4 RDW 14.8 Plt Count 196 MPV 9.2 Sodium 142 Potassium 3.6 Chloride 104 Carbon Dioxide 29.5 Anion Gap 9 BUN 29 H Creatinine 1.47 H Estimated GFR 37 L Random Glucose 81 Calcium 9.8 Assessment and Plan - Assessment (1) Altered mental status Code(s): R41.82 - Altered mental status, unspecified Status: Chronic Plan: .. (2) Anemia Code(s): D64.9 - Anemia, unspecified Status: Chronic Plan: .. (3) Tachyarrhythmia Code(s): R00.0 - Tachycardia, unspecified Status: Chronic Plan: .. (4) COPD (chronic obstructive pulmonary disease) Code(s): J44.9 - Chronic obstructive pulmonary disease, unspecified Status: Chronic Plan: .. (5) HTN (hypertension) Code(s): I10 - Essential (primary) hypertension Status: Chronic Plan: (2) Anemia Qualifiers: Anemia type: unspecified type Qualified Code(s): D64.9 - Anemia, unspecified .. 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 Patient was brought to [facility] on 12/13 by friend for confusion x 2 weeks weakness and flu like symptoms. Patient was admitted to [facility] from 12/13/17 to 12/18/17 treated for metabolic encephalopathy related to UTI and then DC'd to [facility]. Patient was seen in the emergency department related to altered mentation and anemia 12/24/18. The patient at that time was had hemoglobin of 9.3 and her rectal examination was negative for blood. She was deemed safe for discharge with follow-up as an outpatient. Patient again presented to the ER 12/25/17 for increased altered mentation since [facility] at [facility]:15 AM [facility]. The patient has a baseline history of altered mentation that is thought to be related to her history of alcohol abuse and Wernicke's encephalopathy. Psychiatry determined that she is not competent to make her own medical decisions. 06/04/2018-no acute changes overnight, pt. stable 06/05/2018-no changes 06/06/2018-no acute changes. 06/07/2018-no changes. History of PAT /Hypertension S/P AV ann ablation in the past Jul 2017 No chest pain, no shortness of breath -Continue on low-dose metoprolol 6.25 mg po bid -hold parameters in place. -stable, telemetry was discontinued Acute kidney injury on chronic -Creatinine 1.41 -Avoid nephrotoxins -Encourage increase fluid intake -monitor BMP intermittently. Altered mental status- Improved cooperative and appropriate -CT head negative, normal TSH, normal RPR, normal ammonia level -Consider Wernicke's encephalopathy, continue folic acid and thiamine, continue seizure precautions -Psych declined admission, they feel this is alcohol-related. Not competent to make decisions. -Continuing Seroquel 100 mg nightly -Case management working on guardianship appointment to obtain accepting facility -Continues to have confusion. Family unwilling to take care of the patient. Generalized weakness - improved, up and ambulating -Continue to encourage physical activity such as walking around the unit -UA negative, no electrolyte imbalance noted -Staff to encourage and remind patient at mealtimes to increase p.o. intake Anemia -Recent hgb 11, Hct 31.8, MCV 89.9 -Gastroenterology consulted, recommends outpatient follow-up -H&H improved, stable EtOH -Counseled on cessation -Continue vitamin D h/o COPD no SOB -Duonebs as needed DVT Prophylaxis: ambulatory labs reviewed, stable Code Status: Full code Discussed Condition With: RN, pt, CM Discharge Planning: Waiting for placement (2) Anemia Qualifiers: Anemia type: unspecified type Qualified Code(s): D64.9 - Anemia, unspecified
[2018-06-07] MEDS: QUEtiapine 25 MG Tablet PO SCH (21:46)
[2018-06-08] MEDS: Senna/Docusate Sodium 8.6/50 MG Tablet PO SCH ×2 (08:10→21:57)
[2018-06-08] MEDS: Metoprolol Tartrate 25 MG Tablet PO SCH ×2 (08:10→21:56)
--- NOTE | 2018-06-08 17:05 | P.PN ---
Subjective Interval history: Follow-up altered mental status,EtOH, anemia, general weakness and hypertension. Patient seen and examined, she is getting dressed. Indicates she is getting ready to walk around unit. Has no complaints. Asking if she can be discharged for an overnight or a weekend so she can go stay with her mom. She is forgetful, was not sure if she was in a hospital or a [facility] facility. Physical Exam Vital signs: Vital Signs 06/07/18 20:00 06/08/18 08:00 Temperature 98.6 F 97.2 F L Pulse Rate 73 74 Respiratory Rate 18 18 Blood Pressure 121/63 93/60 L Pulse Oximetry 97 94 L Intake & Output 06/07/18 06/08/18 06/08/18 18:59 06:59 18:59 Intake Total 480 / 480 Balance 480 / 480 Weight 54.8 kg Intake: Oral 480 / 480 Other: # Voids 3 Narrative: GENERAL: Well-nourished, well-developed patient in no apparent distress. SKIN: Warm and dry. HEAD: Atraumatic. Normocephalic. EYES: Pupils equal and round. No scleral icterus. No injection or drainage. ENT: No nasal bleeding or discharge. Mucous membranes pink and moist. NECK: Trachea midline. No JVD. CARDIOVASCULAR: Regular rate and rhythm. RESPIRATORY: No accessory muscle use. Clear to auscultation. Breath sounds equal bilaterally. GASTROINTESTINAL: Abdomen soft, non-tender, nondistended. Hepatic and splenic margins not palpable. MUSCULOSKELETAL: Extremities without clubbing, cyanosis, or edema. No obvious deformities. NEUROLOGICAL: Awake, oriented x2. No focal deficits. PSYCHIATRIC: Forgetful, cooperative with care. Results - Labs CBC & Chem 7: 06/07/18 07:51 06/07/18 07:51 Assessment and Plan - Assessment (1) Altered mental status Code(s): R41.82 - Altered mental status, unspecified Status: Chronic Plan: .. (2) Anemia Code(s): D64.9 - Anemia, unspecified Status: Chronic Plan: .. (3) Tachyarrhythmia Code(s): R00.0 - Tachycardia, unspecified Status: Chronic Plan: .. (4) COPD (chronic obstructive pulmonary disease) Code(s): J44.9 - Chronic obstructive pulmonary disease, unspecified Status: Chronic Plan: .. (5) HTN (hypertension) Code(s): I10 - Essential (primary) hypertension Status: Chronic Plan: (2) Anemia Qualifiers: Anemia type: unspecified type Qualified Code(s): D64.9 - Anemia, unspecified .. 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 Patient was brought to [facility] on 12/13 by friend for confusion x 2 weeks weakness and flu like symptoms. Patient was admitted to [facility] from 12/13/17 to 12/18/17 treated for metabolic encephalopathy related to UTI and then DC'd to [facility]. Patient was seen in the emergency department related to altered mentation and anemia 12/24/18. The patient at that time was had hemoglobin of 9.3 and her rectal examination was negative for blood. She was deemed safe for discharge with follow-up as an outpatient. Patient again presented to the ER 12/25/17 for increased altered mentation since falling at her [facility] at approximately 8:15 AM 12/25. The patient has a baseline history of altered mentation that is thought to be related to her history of alcohol abuse and Wernicke's encephalopathy. Psychiatry determined that she is not competent to make her own medical decisions. 06/04/2018-no acute changes overnight, pt. stable 06/05/2018-no changes 06/06/2018-no acute changes. 06/07/2018-no changes. 06/08/2018-no changes History of PAT /Hypertension S/P AV ann ablation in the past Jul 2017 No chest pain, no shortness of breath -Continue on low-dose metoprolol 6.25 mg po bid -hold parameters in place. -stable, telemetry was discontinued Acute kidney injury on chronic -Creatinine 1.41 -Avoid nephrotoxins -Encourage increase fluid intake -monitor BMP intermittently. Altered mental status- Improved cooperative and appropriate -CT head negative, normal TSH, normal RPR, normal ammonia level -Consider Wernicke's encephalopathy, continue folic acid and thiamine, continue seizure precautions -Psych declined admission, they feel this is alcohol-related. Not competent to make decisions. -Continuing Seroquel 100 mg nightly -Case management working on guardianship appointment to obtain accepting facility -Continues to have confusion. Family unwilling to take care of the patient. Generalized weakness - improved, up and ambulating -Continue to encourage physical activity such as walking around the unit -UA negative, no electrolyte imbalance noted -Staff to encourage and remind patient at mealtimes to increase p.o. intake Anemia -Recent hgb 11, Hct 31.8, MCV 89.9 -Gastroenterology consulted, recommends outpatient follow-up -H&H improved, stable EtOH -Counseled on cessation -Continue vitamin D h/o COPD no SOB -Duonebs as needed DVT Prophylaxis: ambulatory Code Status: Full code Discussed Condition With: RN, pt, CM Discharge Planning: Waiting for placement (2) Anemia Qualifiers: Anemia type: unspecified type Qualified Code(s): D64.9 - Anemia, unspecified
[2018-06-08] MEDS: QUEtiapine 25 MG Tablet PO SCH (21:57)
[2018-06-09] MEDS: Metoprolol Tartrate 25 MG Tablet PO SCH ×2 (08:24→20:16)
[2018-06-09] MEDS: Senna/Docusate Sodium 8.6/50 MG Tablet PO SCH ×2 (08:25→20:17)
--- NOTE | 2018-06-09 12:26 | P.PN ---
Subjective Interval history: Follow-up altered mental status,EtOH, anemia, general weakness and hypertension. Patient seen and examined. Yesterday she was caught by elevator asking visitors for cigarette. Patient indicates she is having urges, was put on patch yesterday and is helping. Has no complaints. Forgetful, again asking if she can go stay with her mother for 1 night Physical Exam Vital signs: Vital Signs 06/08/18 20:00 06/09/18 08:00 Temperature 97.4 F L 98.2 F Pulse Rate 98 H 85 Respiratory Rate 18 18 Blood Pressure 119/75 108/58 L Pulse Oximetry 98 97 Intake & Output 06/08/18 06/09/18 06/09/18 19:59 06:59 18:59 Intake Total Balance Weight Intake: Oral Other: # Voids Narrative: GENERAL: Well-nourished, well-developed patient in no apparent distress. SKIN: Warm and dry. HEAD: Atraumatic. Normocephalic. EYES: Pupils equal and round. No scleral icterus. No injection or drainage. ENT: No nasal bleeding or discharge. Mucous membranes pink and moist. NECK: Trachea midline. No JVD. CARDIOVASCULAR: Regular rate and rhythm. RESPIRATORY: No accessory muscle use. Clear to auscultation. Breath sounds equal bilaterally. GASTROINTESTINAL: Abdomen soft, non-tender, nondistended. Hepatic and splenic margins not palpable. MUSCULOSKELETAL: Extremities without clubbing, cyanosis, or edema. No obvious deformities. NEUROLOGICAL: Awake, oriented x2. No focal deficits. PSYCHIATRIC: Forgetful, cooperative with care. Results - Labs CBC & Chem 7: 06/07/18 07:51 06/07/18 07:51 Assessment and Plan - Assessment (1) Altered mental status Code(s): R41.82 - Altered mental status, unspecified Status: Chronic Plan: .. (2) Anemia Code(s): D64.9 - Anemia, unspecified Status: Chronic Plan: .. (3) Tachyarrhythmia Code(s): R00.0 - Tachycardia, unspecified Status: Chronic Plan: .. (4) COPD (chronic obstructive pulmonary disease) Code(s): J44.9 - Chronic obstructive pulmonary disease, unspecified Status: Chronic Plan: .. (5) HTN (hypertension) Code(s): I10 - Essential (primary) hypertension Status: Chronic Plan: (2) Anemia Qualifiers: Anemia type: unspecified type Qualified Code(s): D64.9 - Anemia, unspecified .. 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 Patient was brought to [facility] on 12/13 by friend for confusion x 2 weeks weakness and flu like symptoms. Patient was admitted to [facility] from 12/13/17 to 12/18/17 treated for metabolic encephalopathy related to UTI and then DC'd to [facility]. Patient was seen in the emergency department related to altered mentation and anemia 12/24/18. The patient at that time was had hemoglobin of 9.3 and her rectal examination was negative for blood. She was deemed safe for discharge with follow-up as an outpatient. Patient again presented to the ER 12/25/17 for increased altered mentation since falling at her [facility] at approximately 8:15 AM 12/25. The patient has a baseline history of altered mentation that is thought to be related to her history of alcohol abuse and Wernicke's encephalopathy. Psychiatry determined that she is not competent to make her own medical decisions. 06/04/2018-no acute changes overnight, pt. stable 06/05/2018-no changes 06/06/2018-no acute changes. 06/07/2018-no changes. 06/08/2018-no changes 06/09/2018-Nicotine patch added History of PAT /Hypertension S/P AV ann ablation in the past Jul 2017 No chest pain, no shortness of breath -Continue on low-dose metoprolol 6.25 mg po bid -hold parameters in place. -stable, telemetry was discontinued Acute kidney injury on chronic -Creatinine 1.41 -Avoid nephrotoxins -Encourage increase fluid intake -monitor BMP intermittently. Altered mental status- Improved cooperative and appropriate -CT head negative, normal TSH, normal RPR, normal ammonia level -Consider Wernicke's encephalopathy, continue folic acid and thiamine, continue seizure precautions -Psych declined admission, they feel this is alcohol-related. Not competent to make decisions. -Continuing Seroquel 100 mg nightly -Case management working on guardianship appointment to obtain accepting facility -Continues to have confusion. Family unwilling to take care of the patient. Generalized weakness - improved, up and ambulating -Continue to encourage physical activity such as walking around the unit -UA negative, no electrolyte imbalance noted -Staff to encourage and remind patient at mealtimes to increase p.o. intake Anemia -Recent hgb 11, Hct 31.8, MCV 89.9 -Gastroenterology consulted, recommends outpatient follow-up -H&H improved, stable EtOH -Counseled on cessation -Continue vitamin D h/o COPD no SOB -Duonebs as needed DVT Prophylaxis: ambulatory Code Status: Full code Discussed Condition With: RN, pt, CM Discharge Planning: Waiting for placement (2) Anemia Qualifiers: Anemia type: unspecified type Qualified Code(s): D64.9 - Anemia, unspecified
[2018-06-09] MEDS: QUEtiapine 25 MG Tablet PO SCH (20:16)
[2018-06-10] MEDS: Metoprolol Tartrate 25 MG Tablet PO SCH ×2 (09:25→20:40)
[2018-06-10] MEDS: Senna/Docusate Sodium 8.6/50 MG Tablet PO SCH ×2 (09:25→20:41)
--- NOTE | 2018-06-10 12:51 | P.PN ---
Subjective Interval history: Follow-up altered mental status,EtOH, anemia, general weakness and hypertension. Patient seen and examined. Again asking if she can go home with her mother. Has no complaints. Ambulatory. No fever. Physical Exam Vital signs: Vital Signs 06/09/18 20:00 06/10/18 08:00 Temperature 98 F 98 F Pulse Rate 91 H 72 Respiratory Rate 17 18 Blood Pressure 142/79 H 106/65 Pulse Oximetry 95 98 Intake & Output 06/09/18 06/10/18 06/10/18 18:59 06:59 18:59 Intake Total 480 / 480 Balance 480 / 480 Weight 54.2 kg Intake: Oral 480 / 480 Other: # Voids 2 Date of Last Bowel Movement 06/08/18 Narrative: GENERAL: Well-nourished, well-developed patient in no apparent distress. SKIN: Warm and dry. HEAD: Atraumatic. Normocephalic. EYES: Pupils equal and round. No scleral icterus. No injection or drainage. ENT: No nasal bleeding or discharge. Mucous membranes pink and moist. NECK: Trachea midline. No JVD. CARDIOVASCULAR: Regular rate and rhythm. RESPIRATORY: No accessory muscle use. Clear to auscultation. Breath sounds equal bilaterally. GASTROINTESTINAL: Abdomen soft, non-tender, nondistended. Hepatic and splenic margins not palpable. MUSCULOSKELETAL: Extremities without clubbing, cyanosis, or edema. No obvious deformities. NEUROLOGICAL: Awake, oriented x2. No focal deficits. PSYCHIATRIC: Forgetful, cooperative with care. Results - Labs CBC & Chem 7: 06/07/18 07:51 06/07/18 07:51 Assessment and Plan - Assessment (1) Altered mental status Code(s): R41.82 - Altered mental status, unspecified Status: Chronic Plan: .. (2) Anemia Code(s): D64.9 - Anemia, unspecified Status: Chronic Plan: .. (3) Tachyarrhythmia Code(s): R00.0 - Tachycardia, unspecified Status: Chronic Plan: .. (4) COPD (chronic obstructive pulmonary disease) Code(s): J44.9 - Chronic obstructive pulmonary disease, unspecified Status: Chronic Plan: .. (5) HTN (hypertension) Code(s): I10 - Essential (primary) hypertension Status: Chronic Plan: (2) Anemia Qualifiers: Anemia type: unspecified type Qualified Code(s): D64.9 - Anemia, unspecified .. 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 Patient was brought to [facility] on 12/13 by friend for confusion x 2 weeks weakness and flu like symptoms. Patient was admitted to [facility] from 12/13/17 to 12/18/17 treated for metabolic encephalopathy related to UTI and then DC'd to [facility]. Patient was seen in the emergency department related to altered mentation and anemia 12/24/18. The patient at that time was had hemoglobin of 9.3 and her rectal examination was negative for blood. She was deemed safe for discharge with follow-up as an outpatient. Patient again presented to the ER 12/25/17 for increased altered mentation since falling at her residential at approximately 8:15 AM 12/25. The patient has a baseline history of altered mentation that is thought to be related to her history of alcohol abuse and Wernicke's encephalopathy. Psychiatry determined that she is not competent to make her own medical decisions. 06/04/2018-no acute changes overnight, pt. stable 06/05/2018-no changes 06/06/2018-no acute changes. 06/07/2018-no changes. 06/08/2018-no changes 06/09/2018-Nicotine patch added 06/10/2019-no changes History of PAT /Hypertension S/P AV ann ablation in the past Jul 2017 No chest pain, no shortness of breath -Continue on low-dose metoprolol 6.25 mg po bid -hold parameters in place. -stable, telemetry was discontinued Acute kidney injury on chronic -Creatinine 1.41 -Avoid nephrotoxins -Encourage increase fluid intake -monitor BMP intermittently. Altered mental status- Improved cooperative and appropriate -CT head negative, normal TSH, normal RPR, normal ammonia level -Consider Wernicke's encephalopathy, continue folic acid and thiamine, continue seizure precautions -Psych declined admission, they feel this is alcohol-related. Not competent to make decisions. -Continuing Seroquel 100 mg nightly -Case management working on guardianship appointment to obtain accepting facility -Continues to have confusion. Family unwilling to take care of the patient. Generalized weakness - improved, up and ambulating -Continue to encourage physical activity such as walking around the unit -UA negative, no electrolyte imbalance noted -Staff to encourage and remind patient at mealtimes to increase p.o. intake Anemia -Recent hgb 11, Hct 31.8, MCV 89.9 -Gastroenterology consulted, recommends outpatient follow-up -H&H improved, stable EtOH -Counseled on cessation -Continue vitamin D h/o COPD no SOB -Duonebs as needed DVT Prophylaxis: ambulatory Code Status: Full code Discussed Condition With: RN, pt, CM Discharge Planning: Waiting for placement (2) Anemia Qualifiers: Anemia type: unspecified type Qualified Code(s): D64.9 - Anemia, unspecified
[2018-06-10] MEDS: QUEtiapine 25 MG Tablet PO SCH (20:41)
[2018-06-11] MEDS: Senna/Docusate Sodium 8.6/50 MG Tablet PO SCH ×2 (08:39→21:16)
[2018-06-11] MEDS: Metoprolol Tartrate 25 MG Tablet PO SCH ×2 (08:39→21:16)
--- NOTE | 2018-06-11 14:10 | P.PN ---
Subjective Interval history: Patient seen and examined Stable No acute event overnight Physical Exam Vital signs: Vital Signs 06/10/18 20:00 06/11/18 08:00 Temperature 98.9 F 97.6 F Pulse Rate 84 88 Respiratory Rate 16 18 Blood Pressure 123/68 114/72 Pulse Oximetry 99 100 Intake & Output 06/10/18 06/11/18 06/11/18 18:59 06:59 18:59 Intake Total 1300 / 1300 Output Total 750 / 750 Balance 550 / 550 Weight 54.6 kg Intake: Oral 1300 / 1300 Output: Urine 750 / 750 Other: # Voids 3 Date of Last Bowel Movement 06/10/18 06/10/18 # Bowel Movements 0 Narrative: GENERAL: Well-nourished, well-developed patient in no apparent distress. SKIN: Warm and dry. HEAD: Atraumatic. Normocephalic. EYES: Pupils equal and round. No scleral icterus. No injection or drainage. ENT: No nasal bleeding or discharge. Mucous membranes pink and moist. NECK: Trachea midline. No JVD. CARDIOVASCULAR: Regular rate and rhythm. RESPIRATORY: No accessory muscle use. Clear to auscultation. Breath sounds equal bilaterally. GASTROINTESTINAL: Abdomen soft, non-tender, nondistended. Hepatic and splenic margins not palpable. MUSCULOSKELETAL: Extremities without clubbing, cyanosis, or edema. No obvious deformities. NEUROLOGICAL: Awake, oriented x2. No focal deficits. PSYCHIATRIC: cooperative with care. Results - Labs CBC & Chem 7: 06/07/18 07:51 06/07/18 07:51 Assessment and Plan - Assessment (1) Altered mental status Code(s): R41.82 - Altered mental status, unspecified Status: Chronic Plan: .. (2) Anemia Code(s): D64.9 - Anemia, unspecified Status: Chronic Plan: .. (3) Tachyarrhythmia Code(s): R00.0 - Tachycardia, unspecified Status: Chronic Plan: .. (4) COPD (chronic obstructive pulmonary disease) Code(s): J44.9 - Chronic obstructive pulmonary disease, unspecified Status: Chronic Plan: .. (5) HTN (hypertension) Code(s): I10 - Essential (primary) hypertension Status: Chronic Plan: (2) Anemia Qualifiers: Anemia type: unspecified type Qualified Code(s): D64.9 - Anemia, unspecified .. 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 Acute kidney injury on chronic -Creatinine 1.41 -Avoid nephrotoxins Altered mental status- Improved cooperative and appropriate -CT head negative, normal TSH, normal RPR, normal ammonia level -Consider Wernicke's encephalopathy, continue folic acid and thiamine, continue seizure precautions -Psych declined admission, they feel this is alcohol-related. Not competent to make decisions. -Continuing Seroquel 100 mg nightly -Case management working on guardianship appointment to obtain accepting facility -Continues to have confusion. Family unwilling to take care of the patient. Generalized weakness - improved, up and ambulating -UA negative, no electrolyte imbalance noted Anemia -Recent hgb 11, Hct 31.8, MCV 89.9 -Gastroenterology consulted, recommends outpatient follow-up -H&H improved, stable EtOH -Counseled on cessation -Continue vitamin D h/o COPD no SOB -Duonebs as needed DVT Prophylaxis: ambulatory Continue current treatment as of June 11, 2018 (2) Anemia Qualifiers: Anemia type: unspecified type Qualified Code(s): D64.9 - Anemia, unspecified
[2018-06-11] MEDS: QUEtiapine 25 MG Tablet PO SCH (21:17)
[2018-06-12] MEDS: Metoprolol Tartrate 25 MG Tablet PO SCH ×2 (09:11→22:24)
[2018-06-12] MEDS: Senna/Docusate Sodium 8.6/50 MG Tablet PO SCH ×2 (09:11→22:24)
--- NOTE | 2018-06-12 10:44 | P.PN ---
Subjective Interval history: Patient seen and examined Sleeping, however stable. Physical Exam Vital signs: Vital Signs 06/11/18 20:00 06/12/18 00:00 06/12/18 04:00 Temperature 97.7 F Pulse Rate 86 Respiratory Rate 18 20 20 Blood Pressure 121/82 Pulse Oximetry 99 06/12/18 08:00 06/12/18 08:30 Temperature 97.8 F Pulse Rate 74 Respiratory Rate 20 20 Blood Pressure 105/68 Pulse Oximetry 97 Intake & Output 06/11/18 06/12/18 06/12/18 18:59 06:59 18:59 Weight 53.8 kg Other: # Voids 2 Date of Last Bowel Movement 06/11/18 06/11/18 06/11/18 Narrative: GENERAL: Well-nourished, well-developed patient in no apparent distress but sleeping this morning SKIN: Warm and dry. HEAD: Atraumatic. Normocephalic. EYES: Pupils equal and round. No scleral icterus. No injection or drainage. ENT: No nasal bleeding or discharge. Mucous membranes pink and moist. NECK: Trachea midline. No JVD. CARDIOVASCULAR: Regular rate and rhythm. RESPIRATORY: No accessory muscle use. Clear to auscultation. Breath sounds equal bilaterally. GASTROINTESTINAL: Abdomen soft, non-tender, nondistended. Hepatic and splenic margins not palpable. MUSCULOSKELETAL: Extremities without clubbing, cyanosis, or edema. No obvious deformities. NEUROLOGICAL: No focal deficits. Results - Labs CBC & Chem 7: 06/07/18 07:51 06/07/18 07:51 Assessment and Plan - Assessment (1) Altered mental status Code(s): R41.82 - Altered mental status, unspecified Status: Chronic Plan: .. (2) Anemia Code(s): D64.9 - Anemia, unspecified Status: Chronic Plan: .. (3) Tachyarrhythmia Code(s): R00.0 - Tachycardia, unspecified Status: Chronic Plan: .. (4) COPD (chronic obstructive pulmonary disease) Code(s): J44.9 - Chronic obstructive pulmonary disease, unspecified Status: Chronic Plan: .. (5) HTN (hypertension) Code(s): I10 - Essential (primary) hypertension Status: Chronic Plan: (2) Anemia Qualifiers: Anemia type: unspecified type Qualified Code(s): D64.9 - Anemia, unspecified .. 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 Acute kidney injury on chronic -Creatinine 1.41 -Avoid nephrotoxins Altered mental status- Improved cooperative and appropriate -CT head negative, normal TSH, normal RPR, normal ammonia level -Consider Wernicke's encephalopathy, continue folic acid and thiamine, continue seizure precautions -Psych declined admission, they feel this is alcohol-related. Not competent to make decisions. -Continuing Seroquel 100 mg nightly -Case management working on guardianship appointment to obtain accepting facility -Continues to have confusion. Family unwilling to take care of the patient. Generalized weakness - improved, up and ambulating -UA negative, no electrolyte imbalance noted Anemia -Recent hgb 11, Hct 31.8, MCV 89.9 -Gastroenterology consulted, recommends outpatient follow-up -H&H improved, stable EtOH -Counseled on cessation -Continue vitamin D h/o COPD no SOB -Duonebs as needed DVT Prophylaxis: ambulatory Continue current treatment as of June 12, 2018 (2) Anemia Qualifiers: Anemia type: unspecified type Qualified Code(s): D64.9 - Anemia, unspecified
[2018-06-12] MEDS: QUEtiapine 25 MG Tablet PO SCH (22:24)
[2018-06-13] MEDS: Metoprolol Tartrate 25 MG Tablet PO SCH ×2 (10:05→22:31)
[2018-06-13] MEDS: Senna/Docusate Sodium 8.6/50 MG Tablet PO SCH ×2 (10:06→22:31)
--- NOTE | 2018-06-13 11:13 | P.PN ---
Subjective Interval history: Follow up for inability to care for self, encephalopathy. The patient has no medical complaints today. Denies any fevers, headache, chest pain, shortness of breath, or abdominal complaints. Vital signs reviewed and stable. Physical Exam Vital signs: Vital Signs 06/12/18 20:00 06/13/18 08:00 Temperature 98.1 F 97.6 F Pulse Rate 73 68 Respiratory Rate 18 18 Blood Pressure 97/64 L 116/76 Pulse Oximetry 97 99 Intake & Output 06/12/18 06/13/18 06/13/18 18:59 06:59 18:59 Intake Total 120 / 120 Balance 120 / 120 Weight 55.1 kg Intake: Oral 120 / 120 Other: # Voids 2 1 Date of Last Bowel Movement 06/11/18 06/12/18 # Bowel Movements 1 Narrative: GENERAL: Pleasant thin female patient in NAD. SKIN: Warm and dry. HEAD: Atraumatic. Normocephalic. EYES: Pupils equal and round. No scleral icterus. No injection or drainage. ENT: No nasal bleeding or discharge. Mucous membranes pink and moist. NECK: Trachea midline. No JVD. CARDIOVASCULAR: Regular rate and rhythm. RESPIRATORY: No accessory muscle use. Clear to auscultation. Breath sounds equal bilaterally. GASTROINTESTINAL: Abdomen soft, non-tender, nondistended. Hepatic and splenic margins not palpable. MUSCULOSKELETAL: Extremities without clubbing, cyanosis, or edema. No obvious deformities. NEUROLOGICAL: No focal deficits. Results - Labs CBC & Chem 7: 06/07/18 07:51 06/07/18 07:51 Assessment and Plan - Assessment (1) Altered mental status Code(s): R41.82 - Altered mental status, unspecified Status: Chronic Plan: .. (2) Anemia Code(s): D64.9 - Anemia, unspecified Status: Chronic Plan: .. (3) Tachyarrhythmia Code(s): R00.0 - Tachycardia, unspecified Status: Chronic Plan: .. (4) COPD (chronic obstructive pulmonary disease) Code(s): J44.9 - Chronic obstructive pulmonary disease, unspecified Status: Chronic Plan: .. (5) HTN (hypertension) Code(s): I10 - Essential (primary) hypertension Status: Chronic Plan: (2) Anemia Qualifiers: Anemia type: unspecified type Qualified Code(s): D64.9 - Anemia, unspecified .. 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 Acute kidney injury on chronic -Creatinine 1.41 -Avoid nephrotoxins Altered mental status- Improved cooperative and appropriate -CT head negative, normal TSH, normal RPR, normal ammonia level -Consider Wernicke's encephalopathy, continue folic acid and thiamine, continue seizure precautions -Psych declined admission, they feel this is alcohol-related. Not competent to make decisions. -Continuing Seroquel 100 mg nightly -Case management working on guardianship appointment to obtain accepting facility -Continues to have confusion. Family unwilling to take care of the patient. Generalized weakness - improved, up and ambulating -UA negative, no electrolyte imbalance noted Anemia -Recent hgb 11, Hct 31.8, MCV 89.9 -Gastroenterology consulted, recommends outpatient follow-up -H&H improved, stable EtOH -Counseled on cessation -Continue vitamin D h/o COPD no SOB -Duonebs as needed DVT Prophylaxis: ambulatory 06/13 - No change, stable. (2) Anemia Qualifiers: Anemia type: unspecified type Qualified Code(s): D64.9 - Anemia, unspecified
[2018-06-13] MEDS: QUEtiapine 25 MG Tablet PO SCH (22:32)
[2018-06-14] MEDS: Senna/Docusate Sodium 8.6/50 MG Tablet PO SCH ×2 (09:03→20:23)
[2018-06-14] MEDS: Metoprolol Tartrate 25 MG Tablet PO SCH ×2 (09:05→20:21)
--- NOTE | 2018-06-14 09:08 | P.PN ---
Subjective Interval history: Follow up for inability to care for self, encephalopathy. Patient seen resting in bed. She is oriented to self, [facility], President Darwin, states the month is July and does not know the year. She denies any new medical complaints. She is tolerating oral intake. Vital signs reviewed and stable. Physical Exam Vital signs: Vital Signs 06/13/18 20:00 Temperature 98.2 F Pulse Rate 70 Respiratory Rate 20 Blood Pressure 130/58 L Pulse Oximetry 96 Intake & Output 06/13/18 06/14/18 06/14/18 18:59 06:59 18:59 Intake Total 960 / 960 Balance 960 / 960 Intake: Oral 960 / 960 Other: # Voids 1 Date of Last Bowel Movement 06/13/18 Narrative: GENERAL: Pleasant thin female patient in NAD. SKIN: Warm and dry. HEENT: Atraumatic. Normocephalic. Pupils equal and round. Mucous membranes pink and moist. NECK: Trachea midline. CARDIOVASCULAR: Regular rate and rhythm. No murmur appreciated. RESPIRATORY: No accessory muscle use. Clear to auscultation. Breath sounds equal bilaterally. GASTROINTESTINAL: Abdomen soft, non-tender, nondistended. Normoactive bowel sounds x4. MUSCULOSKELETAL: Extremities without clubbing, cyanosis, or edema. No obvious deformities. NEUROLOGICAL: No focal deficits. Normal speech. Oriented x3 out of 4. Follows commands. Results - Labs CBC & Chem 7: 06/07/18 07:51 06/07/18 07:51 Assessment and Plan - Assessment (1) Altered mental status Code(s): R41.82 - Altered mental status, unspecified Status: Chronic Plan: .. (2) Anemia Code(s): D64.9 - Anemia, unspecified Status: Chronic Plan: .. (3) Tachyarrhythmia Code(s): R00.0 - Tachycardia, unspecified Status: Chronic Plan: .. (4) COPD (chronic obstructive pulmonary disease) Code(s): J44.9 - Chronic obstructive pulmonary disease, unspecified Status: Chronic Plan: .. (5) HTN (hypertension) Code(s): I10 - Essential (primary) hypertension Status: Chronic Plan: (2) Anemia Qualifiers: Anemia type: unspecified type Qualified Code(s): D64.9 - Anemia, unspecified .. 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 Acute kidney injury on chronic -Creatinine 1.41 -Avoid nephrotoxins Altered mental status- Improved cooperative and appropriate -CT head negative, normal TSH, normal RPR, normal ammonia level -Consider Wernicke's encephalopathy, continue folic acid and thiamine, continue seizure precautions -Psych declined admission, they feel this is alcohol-related. Not competent to make decisions. -Continuing Seroquel 100 mg nightly -Case management working on guardianship appointment to obtain accepting facility -Continues to have intermittent confusion, although mostly oriented. Family unwilling to take care of the patient. Generalized weakness - improved, up and ambulating -UA negative, no electrolyte imbalance noted Anemia -Recent hgb 11, Hct 31.8, MCV 89.9 -Gastroenterology consulted, recommends outpatient follow-up -H&H improved, stable EtOH -Counseled on cessation -Continue vitamin D h/o COPD no SOB -Duonebs as needed DVT Prophylaxis: ambulatory 06/14 - No change in treatment, stable. (2) Anemia Qualifiers: Anemia type: unspecified type Qualified Code(s): D64.9 - Anemia, unspecified
[2018-06-14] MEDS: QUEtiapine 25 MG Tablet PO SCH (20:23)
[2018-06-15] MEDS: Metoprolol Tartrate 25 MG Tablet PO SCH ×2 (08:46→21:02)
[2018-06-15] MEDS: Senna/Docusate Sodium 8.6/50 MG Tablet PO SCH ×2 (08:46→21:02)
--- NOTE | 2018-06-15 15:16 | P.PN ---
Subjective Interval history: In nad. Denies chest pain or sob No fever or chills. Shari appears in nad NO events overnight Per nurse she gets upsed and sad at times. Physical Exam Vital signs: Vital Signs 06/14/18 20:00 06/15/18 08:00 Temperature 97.9 F 97.7 F Pulse Rate 79 64 Respiratory Rate 18 14 Blood Pressure 93/56 L 105/69 Pulse Oximetry 98 96 Intake & Output 06/14/18 06/15/18 06/15/18 18:59 06:59 18:59 Intake Total 960 / 960 240 / 240 Balance 960 / 960 240 / 240 Weight 54.8 kg Intake: Oral 960 / 960 240 / 240 Other: # Bowel Movements 1 Narrative: GENERAL: Shari 52 thin female, appears in NAD. CARDIOVASCULAR: Regular rate and rhythm. No murmur appreciated. RESPIRATORY: No accessory muscle use. Clear to auscultation. Breath sounds equal bilaterally. GASTROINTESTINAL: Abdomen soft, non-tender, nondistended. Normoactive bowel sounds x4. MUSCULOSKELETAL: Extremities without clubbing, cyanosis, or edema. No obvious deformities. NEUROLOGICAL: No focal deficits. Normal speech. Oriented x3 out of 4. Follows commands. Results - Labs CBC & Chem 7: 06/07/18 07:51 06/07/18 07:51 Assessment and Plan - Assessment (1) Altered mental status Code(s): R41.82 - Altered mental status, unspecified Status: Chronic Plan: .. (2) Anemia Code(s): D64.9 - Anemia, unspecified Status: Chronic Plan: .. (3) Tachyarrhythmia Code(s): R00.0 - Tachycardia, unspecified Status: Chronic Plan: .. (4) COPD (chronic obstructive pulmonary disease) Code(s): J44.9 - Chronic obstructive pulmonary disease, unspecified Status: Chronic Plan: .. (5) HTN (hypertension) Code(s): I10 - Essential (primary) hypertension Status: Chronic Plan: (2) Anemia Qualifiers: Anemia type: unspecified type Qualified Code(s): D64.9 - Anemia, unspecified .. 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 52-year-old female with History of PAT /Hypertension S/P AV ann ablation in the past Jul 2017 -Continue on low-dose metoprolol 6.25 mg po bid -hold parameters in place. Acute kidney injury on chronic -Creatinine 1.41 -Avoid nephrotoxins Altered mental status- Improved cooperative and appropriate -CT head negative, normal TSH, normal RPR, normal ammonia level -Consider Wernicke's encephalopathy, continue folic acid and thiamine, continue seizure precautions -Psych declined admission, they feel this is alcohol-related. Not competent to make decisions. -Continuing Seroquel 100 mg nightly -Case management working on guardianship appointment to obtain accepting facility -Continues to have intermittent confusion, although mostly oriented. Family unwilling to take care of the patient. Generalized weakness - improved, up and ambulating -UA negative, no electrolyte imbalance noted Anemia -Recent hgb 11, Hct 31.8, MCV 89.9 -Gastroenterology consulted, recommends outpatient follow-up -H&H improved, stable EtOH -Counseled on cessation -Continue vitamin D h/o COPD no SOB -Duonebs as needed DVT Prophylaxis: ambulatory (2) Anemia Qualifiers: Anemia type: unspecified type Qualified Code(s): D64.9 - Anemia, unspecified
[2018-06-15] MEDS: QUEtiapine 25 MG Tablet PO SCH (21:03)
[2018-06-16] MEDS: Metoprolol Tartrate 25 MG Tablet PO SCH ×2 (08:02→20:25)
[2018-06-16] MEDS: Senna/Docusate Sodium 8.6/50 MG Tablet PO SCH ×2 (08:02→20:24)
--- NOTE | 2018-06-16 13:16 | P.PN ---
Subjective Interval history: She is sleepy appears in not acute distress. She is walking on the hallways during the day without any problems. Eating well. No events overnight. Physical Exam Vital signs: Vital Signs 06/15/18 20:00 06/16/18 08:00 Temperature 98.1 F 97.6 F Pulse Rate 77 69 Respiratory Rate 17 18 Blood Pressure 125/87 100/69 Pulse Oximetry 94 L 100 Intake & Output 06/15/18 06/16/18 06/16/18 18:59 06:59 18:59 Intake Total 240 / 240 480 / 480 Balance 240 / 240 480 / 480 Weight 54.8 kg 55 kg Intake: Oral 240 / 240 480 / 480 Other: # Voids 2 # Bowel Movements 1 Narrative: GENERAL: Pleasant 52 thin female, appears in NAD. CARDIOVASCULAR: Regular rate and rhythm. No murmur appreciated. RESPIRATORY: No accessory muscle use. Clear to auscultation. Breath sounds equal bilaterally. GASTROINTESTINAL: Abdomen soft, non-tender, nondistended. Normoactive bowel sounds x4. MUSCULOSKELETAL: Extremities without clubbing, cyanosis, or edema. No obvious deformities. NEUROLOGICAL: No focal deficits. Normal speech. Oriented x3 out of 4. Follows commands. Results - Labs CBC & Chem 7: 06/07/18 07:51 06/07/18 07:51 Assessment and Plan - Assessment (1) Altered mental status Code(s): R41.82 - Altered mental status, unspecified Status: Chronic Plan: .. (2) Anemia Code(s): D64.9 - Anemia, unspecified Status: Chronic Plan: .. (3) Tachyarrhythmia Code(s): R00.0 - Tachycardia, unspecified Status: Chronic Plan: .. (4) COPD (chronic obstructive pulmonary disease) Code(s): J44.9 - Chronic obstructive pulmonary disease, unspecified Status: Chronic Plan: .. (5) HTN (hypertension) Code(s): I10 - Essential (primary) hypertension Status: Chronic Plan: (2) Anemia Qualifiers: Anemia type: unspecified type Qualified Code(s): D64.9 - Anemia, unspecified .. 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 52-year-old female with History of PAT /Hypertension S/P AV ann ablation in the past Jul 2017 -Continue on low-dose metoprolol 6.25 mg po bid -hold parameters in place. Acute kidney injury on chronic -Creatinine 1.41 -Avoid nephrotoxins Altered mental status- Improved cooperative and appropriate -CT head negative, normal TSH, normal RPR, normal ammonia level -Consider Wernicke's encephalopathy, continue folic acid and thiamine, continue seizure precautions -Psych declined admission, they feel this is alcohol-related. Not competent to make decisions. -Continuing Seroquel 100 mg nightly -Case management working on guardianship appointment to obtain accepting facility -Continues to have intermittent confusion, although mostly oriented. Family unwilling to take care of the patient. Generalized weakness - improved, up and ambulating -UA negative, no electrolyte imbalance noted Anemia -Recent hgb 11, Hct 31.8, MCV 89.9 -Gastroenterology consulted, recommends outpatient follow-up -H&H improved, stable EtOH -Counseled on cessation -Continue vitamin D h/o COPD no SOB -Duonebs as needed DVT Prophylaxis: ambulatory Difficult discharge. Case management is following for discharge plan (2) Anemia Qualifiers: Anemia type: unspecified type Qualified Code(s): D64.9 - Anemia, unspecified
[2018-06-16] MEDS: QUEtiapine 25 MG Tablet PO SCH (20:24)
[2018-06-17] MEDS: Senna/Docusate Sodium 8.6/50 MG Tablet PO SCH ×2 (09:20→20:40)
[2018-06-17] MEDS: Metoprolol Tartrate 25 MG Tablet PO SCH ×2 (09:21→20:39)
[2018-06-17] MEDS ORDERED: Influenza (Quadrivalent) Vaccine 0.5 ML Syringe IM ONE (14:15)
--- NOTE | 2018-06-17 14:17 | P.PN ---
Subjective Interval history: She is in bed says she feels cold and has blankets. She is ambulating in the hallways without problems during the day. No events overnight. Physical Exam Vital signs: Vital Signs 06/16/18 20:00 06/17/18 08:00 Temperature 97.9 F 97.4 F L Pulse Rate 78 73 Respiratory Rate 15 16 Blood Pressure 121/93 H 103/58 L Pulse Oximetry 100 97 Intake & Output 06/16/18 06/17/18 06/17/18 18:59 06:59 18:59 Intake Total 480 / 480 Balance 480 / 480 Weight 55.1 kg Intake: Oral 480 / 480 Other: # Voids 2 # Bowel Movements 1 Narrative: GENERAL: Pleasant 52 thin female, appears in NAD. CARDIOVASCULAR: Regular rate and rhythm. No murmur appreciated. RESPIRATORY: No accessory muscle use. Clear to auscultation. Breath sounds equal bilaterally. GASTROINTESTINAL: Abdomen soft, non-tender, nondistended. Normoactive bowel sounds x4. MUSCULOSKELETAL: Extremities without clubbing, cyanosis, or edema. No obvious deformities. NEUROLOGICAL: No focal deficits. Normal speech. Oriented x3 out of 4. Follows commands. Results - Labs CBC & Chem 7: 06/07/18 07:51 06/07/18 07:51 Assessment and Plan - Assessment (1) Altered mental status Code(s): R41.82 - Altered mental status, unspecified Status: Chronic Plan: .. (2) Anemia Code(s): D64.9 - Anemia, unspecified Status: Chronic Plan: .. (3) Tachyarrhythmia Code(s): R00.0 - Tachycardia, unspecified Status: Chronic Plan: .. (4) COPD (chronic obstructive pulmonary disease) Code(s): J44.9 - Chronic obstructive pulmonary disease, unspecified Status: Chronic Plan: .. (5) HTN (hypertension) Code(s): I10 - Essential (primary) hypertension Status: Chronic Plan: (2) Anemia Qualifiers: Anemia type: unspecified type Qualified Code(s): D64.9 - Anemia, unspecified .. 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 Consulted Dr. Blank neuropsychology 52-year-old female with History of PAT /Hypertension S/P AV ann ablation in the past Jul 2017 -Continue on low-dose metoprolol 6.25 mg po bid -hold parameters in place. Acute kidney injury on chronic -Creatinine 1.41 -Avoid nephrotoxins Altered mental status- Improved cooperative and appropriate -CT head negative, normal TSH, normal RPR, normal ammonia level -Consider Wernicke's encephalopathy, continue folic acid and thiamine, continue seizure precautions -Psych declined admission, they feel this is alcohol-related. Not competent to make decisions. -Continuing Seroquel 100 mg nightly -Case management working on guardianship appointment to obtain accepting facility -Continues to have intermittent confusion, although mostly oriented. Family unwilling to take care of the patient. Generalized weakness - improved, up and ambulating -UA negative, no electrolyte imbalance noted Anemia -Recent hgb 11, Hct 31.8, MCV 89.9 -Gastroenterology consulted, recommends outpatient follow-up -H&H improved, stable EtOH -Counseled on cessation -Continue vitamin D h/o COPD no SOB -Duonebs as needed DVT Prophylaxis: ambulatory Difficult discharge. Case management is following for discharge plan Consult neuropsychology Dr. Blank (2) Anemia Qualifiers: Anemia type: unspecified type Qualified Code(s): D64.9 - Anemia, unspecified
[2018-06-17] MEDS: QUEtiapine 25 MG Tablet PO SCH (20:40)
[2018-06-18] MEDS: Senna/Docusate Sodium 8.6/50 MG Tablet PO SCH ×2 (08:32→20:16)
[2018-06-18] MEDS: Metoprolol Tartrate 25 MG Tablet PO SCH ×2 (08:32→20:17)
--- NOTE | 2018-06-18 16:26 | P.PN ---
Subjective Interval history: In bed she appears in not acute distress. She is however able to walk in the hallways. Says she did not sleep well last night and she feels sleepy at this time. No nausea vomiting or diarrhea constipation. Eating fairly well. Physical Exam Vital signs: Vital Signs 06/17/18 20:00 06/18/18 08:00 06/18/18 09:00 Temperature 97.7 F 97.1 F L Pulse Rate 117 H 105 H Respiratory Rate 18 18 Blood Pressure 123/77 86/68 L 111/76 Pulse Oximetry 98 100 Intake & Output 06/17/18 06/18/18 06/18/18 18:59 06:59 18:59 Weight 56.2 kg Other: # Voids 3 Date of Last Bowel Movement 06/17/18 # Bowel Movements 2 Narrative: GENERAL: Pleasant 52 thin female, appears in NAD. CARDIOVASCULAR: Regular rate and rhythm. No murmur appreciated. RESPIRATORY: No accessory muscle use. Clear to auscultation. Breath sounds equal bilaterally. GASTROINTESTINAL: Abdomen soft, non-tender, nondistended. Normoactive bowel sounds x4. MUSCULOSKELETAL: Extremities without clubbing, cyanosis, or edema. No obvious deformities. NEUROLOGICAL: No focal deficits. Normal speech. Oriented x3 out of 4. Follows commands. Results - Labs CBC & Chem 7: 06/07/18 07:51 06/07/18 07:51 Assessment and Plan - Assessment (1) Altered mental status Code(s): R41.82 - Altered mental status, unspecified Status: Chronic Plan: .. (2) Anemia Code(s): D64.9 - Anemia, unspecified Status: Chronic Plan: .. (3) Tachyarrhythmia Code(s): R00.0 - Tachycardia, unspecified Status: Chronic Plan: .. (4) COPD (chronic obstructive pulmonary disease) Code(s): J44.9 - Chronic obstructive pulmonary disease, unspecified Status: Chronic Plan: .. (5) HTN (hypertension) Code(s): I10 - Essential (primary) hypertension Status: Chronic Plan: (2) Anemia Qualifiers: Anemia type: unspecified type Qualified Code(s): D64.9 - Anemia, unspecified .. 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 Will consult psychiatry for evaluation/ of decision making consulted Dr. Blank neuropsychology. 52-year-old female with History of PAT /Hypertension S/P AV ann ablation in the past Jul 2017 -Continue on low-dose metoprolol 6.25 mg po bid -hold parameters in place. Acute kidney injury on chronic -Creatinine 1.41 -Avoid nephrotoxins Altered mental status- Improved cooperative and appropriate -CT head negative, normal TSH, normal RPR, normal ammonia level -Consider Wernicke's encephalopathy, continue folic acid and thiamine, continue seizure precautions -Psych declined admission, they feel this is alcohol-related. Not competent to make decisions. -Continuing Seroquel 100 mg nightly -Case management working on guardianship appointment to obtain accepting facility -Continues to have intermittent confusion, although mostly oriented. Family unwilling to take care of the patient. Generalized weakness - improved, up and ambulating -UA negative, no electrolyte imbalance noted Anemia -Recent hgb 11, Hct 31.8, MCV 89.9 -Gastroenterology consulted, recommends outpatient follow-up -H&H improved, stable EtOH -Counseled on cessation -Continue vitamin D h/o COPD no SOB -Duonebs as needed DVT Prophylaxis: ambulatory Difficult discharge. Case management is following for discharge plan Consult neuropsychology Dr. Blank (2) Anemia Qualifiers: Anemia type: unspecified type Qualified Code(s): D64.9 - Anemia, unspecified
[2018-06-18] MEDS: QUEtiapine 25 MG Tablet PO SCH (20:16)
[2018-06-19] MEDS: Metoprolol Tartrate 25 MG Tablet PO SCH ×2 (11:21→21:47)
[2018-06-19] MEDS: Senna/Docusate Sodium 8.6/50 MG Tablet PO SCH ×2 (11:22→21:48)
--- NOTE | 2018-06-19 13:01 | P.PNPSY ---
Subjective Remarks: I have seen and examined this patient for psychiatric reevaluation of a decision -making capacity today as a request of Dr Newton. I also have reviewed the EMR. The patient is found calm, cooperative, very pleasant. She reports to be in an good mood "but I want to go home". She is in a good spirit, denies depression , denies hopelessness, denies helplessness, denies worthlessness, denies suicidal and homicidal ideation, denies visual and auditory hallucinations. She denies pain or distress. However, the patient is completely disoriented in time and place, she does not even know the reason she is in the hospital, unable to verbalize an understanding and appreciation of her current medical situation, unable to even verbalize a logical choice regarding her medical conditions, she has a prominent confabulatory thought process, with prominent empiric content with the reality, but no prominent paranoia, no agitation, no ideas of reference, no internal preoccupation present. Patient thinks that she is in a hotel, she says that we are at the beginning of 2011. Her Folstein Mini -Mental is 16/30 and her draw a clock shows a significant impairment in cognition. Mental Status Examination Appearance: Appropriate Consciousness: Alert Orientation: Person Motor Activity: Normal gait Speech: Unremarkable Language: Adequate Fund of Knowledge: Adequate Attention and Concentration: Adequate Memory: Unremarkable, Impaired Mood: Appropriate Affect: Appropriate Thought Process & Associations: Intact Thought Content: Appropriate Hallucination Type: None Delusion Type: None Suicidal Ideation: No Suicidal Plan: No Suicidal Intention: No Homicidal Ideation: No Homicidal Plan: No Homicidal Intention: No Insight: Poor Judgment: Poor Assessment and Plan - Assessment (1) 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 There is not acute neuropsychiatric symptoms that require immediate psychiatric intervention. Patient is unable to verbalize appreciation or understanding of current medical situation, not even able to verbalize a logical choice regarding her medical conditions. MMS is 16/30. Continue current psychotropic regimen. The patient does not meet criteria for involuntary psychiatric admission. The patient has no decision-making capacity to participate in treatment and discharge plan at this moment given her improvement in condition. Justification for Continued Inpatient Stay: No admission is indicated
--- NOTE | 2018-06-19 16:00 | P.PN ---
Subjective Interval history: Says she wants to go home and ex will take care of her however she is not sure ... Seen by psychiatry Dr. Mayen's who says patient does not have ability to make decisions. Otherwise patient is in not acute distress has no other complaints. Physical Exam Vital signs: Vital Signs 06/18/18 20:00 06/19/18 08:00 Temperature 98.3 F 97.8 F Pulse Rate 83 73 Respiratory Rate 18 17 Blood Pressure 114/86 102/63 Pulse Oximetry 99 97 Intake & Output 06/18/18 06/19/18 06/19/18 18:59 06:59 18:59 Intake Total 240 / 240 Balance 240 / 240 Weight 56.2 kg 56.4 kg Intake: Oral 240 / 240 Other: # Voids 3 2 # Bowel Movements 2 0 Narrative: GENERAL: Pleasant 52 thin female, appears in NAD. CARDIOVASCULAR: Regular rate and rhythm. No murmur appreciated. RESPIRATORY: No accessory muscle use. Clear to auscultation. Breath sounds equal bilaterally. GASTROINTESTINAL: Abdomen soft, non-tender, nondistended. Normoactive bowel sounds x4. MUSCULOSKELETAL: Extremities without clubbing, cyanosis, or edema. No obvious deformities. NEUROLOGICAL: No focal deficits. Normal speech. Oriented x3 out of 4. Follows commands. Results - Labs CBC & Chem 7: 06/07/18 07:51 06/07/18 07:51 Assessment and Plan - Assessment (1) Altered mental status Code(s): R41.82 - Altered mental status, unspecified Status: Chronic Plan: .. (2) Anemia Code(s): D64.9 - Anemia, unspecified Status: Chronic Plan: .. (3) Tachyarrhythmia Code(s): R00.0 - Tachycardia, unspecified Status: Chronic Plan: .. (4) COPD (chronic obstructive pulmonary disease) Code(s): J44.9 - Chronic obstructive pulmonary disease, unspecified Status: Chronic Plan: .. (5) HTN (hypertension) Code(s): I10 - Essential (primary) hypertension Status: Chronic Plan: (2) Anemia Qualifiers: Anemia type: unspecified type Qualified Code(s): D64.9 - Anemia, unspecified .. 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 Serrano, notes reviewed. Patient is not able to make decision on her own. Continue the same management. 06/18- No change in treatment, stable. Will consult psychiatry for evaluation/ of decision making consulted Dr. Blank neuropsychology. 52-year-old female with History of PAT /Hypertension S/P AV ann ablation in the past Jul 2017 -Continue on low-dose metoprolol 6.25 mg po bid -hold parameters in place. Acute kidney injury on chronic -Creatinine 1.41 -Avoid nephrotoxins Altered mental status- Improved cooperative and appropriate -CT head negative, normal TSH, normal RPR, normal ammonia level -Consider Wernicke's encephalopathy, continue folic acid and thiamine, continue seizure precautions -Psych declined admission, they feel this is alcohol-related. Not competent to make decisions. -Continuing Seroquel 100 mg nightly -Case management working on guardianship appointment to obtain accepting facility -Continues to have intermittent confusion, although mostly oriented. Family unwilling to take care of the patient. Generalized weakness - improved, up and ambulating -UA negative, no electrolyte imbalance noted Anemia -Recent hgb 11, Hct 31.8, MCV 89.9 -Gastroenterology consulted, recommends outpatient follow-up -H&H improved, stable EtOH -Counseled on cessation -Continue vitamin D h/o COPD no SOB -Duonebs as needed DVT Prophylaxis: ambulatory Difficult discharge. Case management is following for discharge plan. Consult neuropsychology Dr. Blank Seen by psychiatry Dr. Serrano. Patient is not able to make decisions on her own. (2) Anemia Qualifiers: Anemia type: unspecified type Qualified Code(s): D64.9 - Anemia, unspecified
[2018-06-19] MEDS: QUEtiapine 25 MG Tablet PO SCH (21:48)
--- NOTE | 2018-06-20 10:36 | P.PN ---
Subjective Interval history: PT and OT at bedside working with the patient. Patient does not have any concerns at this time. No nausea or vomiting no diarrhea constipation. Physical Exam Vital signs: Vital Signs 06/19/18 20:00 06/20/18 04:00 06/20/18 08:00 Temperature 98.3 F 97.3 F L Pulse Rate 89 94 H Respiratory Rate 18 20 16 Blood Pressure 122/81 93/62 L Pulse Oximetry 18 L 98 Intake & Output 06/19/18 06/20/18 06/20/18 18:59 06:59 18:59 Intake Total 360 / 360 840 / 840 Balance 360 / 360 840 / 840 Weight 55.6 kg Intake: Oral 360 / 360 840 / 840 Other: # Voids 3 3 Date of Last Bowel Movement 06/18/18 # Bowel Movements 0 0 Narrative: GENERAL: Pleasant 52 thin female, appears in NAD. CARDIOVASCULAR: Regular rate and rhythm. No murmur appreciated. RESPIRATORY: No accessory muscle use. Clear to auscultation. Breath sounds equal bilaterally. GASTROINTESTINAL: Abdomen soft, non-tender, nondistended. Normoactive bowel sounds x4. MUSCULOSKELETAL: Extremities without clubbing, cyanosis, or edema. No obvious deformities. NEUROLOGICAL: No focal deficits. Normal speech. Oriented x3 out of 4. Follows commands. Results - Labs CBC & Chem 7: 06/07/18 07:51 06/07/18 07:51 Assessment and Plan - Assessment (1) Altered mental status Code(s): R41.82 - Altered mental status, unspecified Status: Chronic Plan: .. (2) Anemia Code(s): D64.9 - Anemia, unspecified Status: Chronic Plan: .. (3) Tachyarrhythmia Code(s): R00.0 - Tachycardia, unspecified Status: Chronic Plan: .. (4) COPD (chronic obstructive pulmonary disease) Code(s): J44.9 - Chronic obstructive pulmonary disease, unspecified Status: Chronic Plan: .. (5) HTN (hypertension) Code(s): I10 - Essential (primary) hypertension Status: Chronic Plan: (2) Anemia Qualifiers: Anemia type: unspecified type Qualified Code(s): D64.9 - Anemia, unspecified .. 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 Continue the same management. VSS. 06/[address] Serrano, notes reviewed. Patient is not able to make decision on her own. Continue the same management. 06/18- No change in treatment, stable. Will consult psychiatry for evaluation/ of decision making consulted Dr. Blank neuropsychology. 52-year-old female with History of PAT /Hypertension S/P AV ann ablation in the past Jul 2017 -Continue on low-dose metoprolol 6.25 mg po bid -hold parameters in place. Acute kidney injury on chronic -Creatinine 1.41 -Avoid nephrotoxins Altered mental status- Improved cooperative and appropriate -CT head negative, normal TSH, normal RPR, normal ammonia level -Consider Wernicke's encephalopathy, continue folic acid and thiamine, continue seizure precautions -Psych declined admission, they feel this is alcohol-related. Not competent to make decisions. -Continuing Seroquel 100 mg nightly -Case management working on guardianship appointment to obtain accepting facility -Continues to have intermittent confusion, although mostly oriented. Family unwilling to take care of the patient. Generalized weakness - improved, up and ambulating -UA negative, no electrolyte imbalance noted Anemia -Recent hgb 11, Hct 31.8, MCV 89.9 -Gastroenterology consulted, recommends outpatient follow-up -H&H improved, stable EtOH -Counseled on cessation -Continue vitamin D h/o COPD no SOB -Duonebs as needed DVT Prophylaxis: ambulatory Difficult discharge. Case management is following for discharge plan. Consult neuropsychology Dr. Blank Seen by psychiatry Dr. Serrano. Patient is not able to make decisions on her own. (2) Anemia Qualifiers: Anemia type: unspecified type Qualified Code(s): D64.9 - Anemia, unspecified
[2018-06-20] MEDS: Metoprolol Tartrate 25 MG Tablet PO SCH ×2 (12:57→21:29)
[2018-06-20] MEDS: Senna/Docusate Sodium 8.6/50 MG Tablet PO SCH ×2 (13:00→21:30)
[2018-06-20] MEDS: QUEtiapine 25 MG Tablet PO SCH (21:30)
[2018-06-21] MEDS: Senna/Docusate Sodium 8.6/50 MG Tablet PO SCH ×2 (08:25→21:30)
[2018-06-21] MEDS: Metoprolol Tartrate 25 MG Tablet PO SCH ×2 (09:00→21:30)
--- NOTE | 2018-06-21 10:03 | P.PNIM ---
Subjective Interval history: in no acute distress. resting comfortably. Physical Exam Vital signs: Vital Signs 06/20/18 20:00 06/21/18 08:00 Temperature 97.9 F 97.6 F Pulse Rate 80 77 Respiratory Rate 14 18 Blood Pressure 109/71 96/76 L Pulse Oximetry 97 97 Intake & Output 06/20/18 06/21/18 06/21/18 18:59 06:59 18:59 Intake Total 480 / 480 Balance 480 / 480 Weight 55.1 kg Intake: Oral 480 / 480 Other: # Voids 2 Date of Last Bowel Movement 06/19/18 - Constitutional no acute distress - Routine Respiratory Exam Present: CTA bilaterally - Routine Cardiovascular Exam Present: RRR - Routine Abdominal Exam Present: soft - Routine Extremities Exam Comments: no pedal edema. - Routine Neurological Exam Present: alert Results - Labs CBC & Chem 7: 06/07/18 07:51 06/07/18 07:51 Assessment and Plan - Assessment (1) Altered mental status Code(s): R41.82 - Altered mental status, unspecified Status: Chronic Plan: .. (2) Anemia Code(s): D64.9 - Anemia, unspecified Status: Chronic Plan: .. (3) Tachyarrhythmia Code(s): R00.0 - Tachycardia, unspecified Status: Chronic Plan: .. (4) COPD (chronic obstructive pulmonary disease) Code(s): J44.9 - Chronic obstructive pulmonary disease, unspecified Status: Chronic Plan: .. (5) HTN (hypertension) Code(s): I10 - Essential (primary) hypertension Status: Chronic Plan: (2) Anemia Qualifiers: Anemia type: unspecified type Qualified Code(s): D64.9 - Anemia, unspecified .. 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 Acute kidney injury on chronic -Creatinine 1.41 -Avoid nephrotoxins Altered mental status- Improved cooperative and appropriate -CT head negative, normal TSH, normal RPR, normal ammonia level -Consider Wernicke's encephalopathy, continue thiamine, continue seizure precautions -Psych declined admission, they feel this is alcohol-related. Not competent to make decisions. -Continuing Seroquel 50 mg nightly -Case management working on guardianship appointment to obtain accepting facility -Continues to have intermittent confusion, although mostly oriented. Family unwilling to take care of the patient. Generalized weakness - improved, up and ambulating -UA negative, no electrolyte imbalance noted Anemia -Gastroenterology consulted, recommends outpatient follow-up -H&H improved, stable EtOH -Counseled on cessation -Continue vitamin D h/o COPD no SOB DVT Prophylaxis: ambulatory Discharge Planning: awaiting placement. (2) Anemia Qualifiers: Anemia type: unspecified type Qualified Code(s): D64.9 - Anemia, unspecified
[2018-06-21] MEDS: QUEtiapine 25 MG Tablet PO SCH (21:31)
--- NOTE | 2018-06-22 09:01 | P.PNIM ---
Subjective Interval history: in no acute distress. no new complaints. Physical Exam Vital signs: Vital Signs 06/21/18 20:00 Temperature 98.2 F Pulse Rate 107 H Respiratory Rate 16 Blood Pressure 134/86 Pulse Oximetry 97 Intake & Output 06/21/18 06/22/18 06/22/18 18:59 06:59 18:59 Intake Total 420 / 420 Balance 420 / 420 Weight 55.6 kg Intake: Oral 420 / 420 Other: # Voids 2 - Constitutional no acute distress (clinically no change.) Results - Labs CBC & Chem 7: 06/07/18 07:51 06/07/18 07:51 Assessment and Plan - Assessment (1) Altered mental status Code(s): R41.82 - Altered mental status, unspecified Status: Chronic Plan: .. (2) Anemia Code(s): D64.9 - Anemia, unspecified Status: Chronic Plan: .. (3) Tachyarrhythmia Code(s): R00.0 - Tachycardia, unspecified Status: Chronic Plan: .. (4) COPD (chronic obstructive pulmonary disease) Code(s): J44.9 - Chronic obstructive pulmonary disease, unspecified Status: Chronic Plan: .. (5) HTN (hypertension) Code(s): I10 - Essential (primary) hypertension Status: Chronic Plan: (2) Anemia Qualifiers: Anemia type: unspecified type Qualified Code(s): D64.9 - Anemia, unspecified .. 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 Acute kidney injury on chronic -Creatinine 1.41 -Avoid nephrotoxins Altered mental status- Improved cooperative and appropriate -CT head negative, normal TSH, normal RPR, normal ammonia level -Consider Wernicke's encephalopathy, continue thiamine, continue seizure precautions -Psych declined admission, they feel this is alcohol-related. Not competent to make decisions. -Continuing Seroquel 50 mg nightly -Case management working on guardianship appointment to obtain accepting facility -Continues to have intermittent confusion, although mostly oriented. Family unwilling to take care of the patient. Generalized weakness - improved, up and ambulating -UA negative, no electrolyte imbalance noted Anemia -Gastroenterology consulted, recommends outpatient follow-up -H&H improved, stable EtOH -Counseled on cessation -Continue vitamin D h/o COPD no SOB DVT Prophylaxis: ambulatory Discharge Planning: awaiting placement. (2) Anemia Qualifiers: Anemia type: unspecified type Qualified Code(s): D64.9 - Anemia, unspecified
[2018-06-22] MEDS: Metoprolol Tartrate 25 MG Tablet PO SCH ×2 (10:34→21:18)
[2018-06-22] MEDS: Senna/Docusate Sodium 8.6/50 MG Tablet PO SCH ×2 (10:36→21:19)
[2018-06-22] MEDS: QUEtiapine 25 MG Tablet PO SCH (21:19)
[2018-06-23] MEDS: Metoprolol Tartrate 25 MG Tablet PO SCH ×2 (09:20→21:32)
[2018-06-23] MEDS: Senna/Docusate Sodium 8.6/50 MG Tablet PO SCH ×2 (09:20→21:32)
--- NOTE | 2018-06-23 10:42 | P.PNIM ---
Subjective Interval history: in no distress. clinically no change. Physical Exam Vital signs: Vital Signs 06/22/18 20:00 06/23/18 08:00 Temperature 97.9 F 97.3 F L Pulse Rate 89 94 H Respiratory Rate 20 16 Blood Pressure 139/88 139/66 Pulse Oximetry 98 99 Intake & Output 06/22/18 06/23/18 06/23/18 18:59 06:59 18:59 Weight 55.5 kg Other: # Voids 3 Date of Last Bowel Movement 06/20/18 06/21/18 06/21/18 # Bowel Movements 1 - Constitutional no acute distress (clinically no change.) Results - Labs CBC & Chem 7: 06/07/18 07:51 06/07/18 07:51 Assessment and Plan - Assessment (1) Altered mental status Code(s): R41.82 - Altered mental status, unspecified Status: Chronic Plan: .. (2) Anemia Code(s): D64.9 - Anemia, unspecified Status: Chronic Plan: .. (3) Tachyarrhythmia Code(s): R00.0 - Tachycardia, unspecified Status: Chronic Plan: .. (4) COPD (chronic obstructive pulmonary disease) Code(s): J44.9 - Chronic obstructive pulmonary disease, unspecified Status: Chronic Plan: .. (5) HTN (hypertension) Code(s): I10 - Essential (primary) hypertension Status: Chronic Plan: (2) Anemia Qualifiers: Anemia type: unspecified type Qualified Code(s): D64.9 - Anemia, unspecified .. 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 Acute kidney injury on chronic -stable -Avoid nephrotoxins Altered mental status- Improved cooperative and appropriate -CT head negative, normal TSH, normal RPR, normal ammonia level -Consider Wernicke's encephalopathy, continue thiamine, continue seizure precautions -Psych declined admission, they feel this is alcohol-related. Not competent to make decisions. -Continuing Seroquel 50 mg nightly -Case management working on guardianship appointment to obtain accepting facility -Continues to have intermittent confusion, although mostly oriented. Family unwilling to take care of the patient. Generalized weakness - improved, up and ambulating -UA negative, no electrolyte imbalance noted Anemia -Gastroenterology consulted, recommends outpatient follow-up -H&H improved, stable EtOH -Counseled on cessation -Continue vitamin D h/o COPD no SOB DVT Prophylaxis: ambulatory Discharge Planning: awaiting placement. (2) Anemia Qualifiers: Anemia type: unspecified type Qualified Code(s): D64.9 - Anemia, unspecified
[2018-06-23] MEDS: QUEtiapine 25 MG Tablet PO SCH (21:32)
[2018-06-24] MEDS: Metoprolol Tartrate 25 MG Tablet PO SCH ×2 (08:48→21:37)
[2018-06-24] MEDS: Senna/Docusate Sodium 8.6/50 MG Tablet PO SCH ×2 (08:49→21:38)
--- NOTE | 2018-06-24 10:51 | P.PNIM ---
Subjective Interval history: in no acute distress. no new complaints. Physical Exam Vital signs: Vital Signs 06/23/18 20:00 06/24/18 08:00 Temperature 98.5 F 97.7 F Pulse Rate 100 H 75 Respiratory Rate 21 16 Blood Pressure 102/62 112/79 Pulse Oximetry 97 100 Intake & Output 06/23/18 06/24/18 06/24/18 18:59 06:59 18:59 Intake Total 900 / 900 Balance 900 / 900 Weight 55.5 kg Intake: Oral 900 / 900 Other: # Voids 2 3 Date of Last Bowel Movement 06/21/18 06/22/18 06/22/18 - Constitutional no acute distress (clinically no change.) Results - Labs CBC & Chem 7: 06/07/18 07:51 06/07/18 07:51 Assessment and Plan - Assessment (1) Altered mental status Code(s): R41.82 - Altered mental status, unspecified Status: Chronic Plan: .. (2) Anemia Code(s): D64.9 - Anemia, unspecified Status: Chronic Plan: .. (3) Tachyarrhythmia Code(s): R00.0 - Tachycardia, unspecified Status: Chronic Plan: .. (4) COPD (chronic obstructive pulmonary disease) Code(s): J44.9 - Chronic obstructive pulmonary disease, unspecified Status: Chronic Plan: .. (5) HTN (hypertension) Code(s): I10 - Essential (primary) hypertension Status: Chronic Plan: (2) Anemia Qualifiers: Anemia type: unspecified type Qualified Code(s): D64.9 - Anemia, unspecified .. 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 Acute kidney injury on chronic -stable -Avoid nephrotoxins Altered mental status- Improved cooperative and appropriate -CT head negative, normal TSH, normal RPR, normal ammonia level -Consider Wernicke's encephalopathy, continue thiamine, continue seizure precautions -Psych declined admission, they feel this is alcohol-related. Not competent to make decisions. -Continuing Seroquel 50 mg nightly -Case management working on guardianship appointment to obtain accepting facility -Continues to have intermittent confusion, although mostly oriented. Family unwilling to take care of the patient. Generalized weakness - improved, up and ambulating -UA negative, no electrolyte imbalance noted Anemia -Gastroenterology consulted, recommends outpatient follow-up -H&H improved, stable EtOH -Counseled on cessation -Continue vitamin D h/o COPD no SOB DVT Prophylaxis: ambulatory Discharge Planning: awaiting placement. (2) Anemia Qualifiers: Anemia type: unspecified type Qualified Code(s): D64.9 - Anemia, unspecified
[2018-06-24] MEDS: QUEtiapine 25 MG Tablet PO SCH (21:37)
[2018-06-25] MEDS: Metoprolol Tartrate 25 MG Tablet PO SCH ×2 (08:56→21:04)
[2018-06-25] MEDS: Senna/Docusate Sodium 8.6/50 MG Tablet PO SCH ×2 (08:57→21:05)
--- NOTE | 2018-06-25 10:54 | P.PNIM ---
Subjective Interval history: in no acute distress. no new complaints. Physical Exam Vital signs: Vital Signs 06/24/18 20:00 06/25/18 08:00 Temperature 98.7 F 97.5 F L Pulse Rate 98 H 93 H Respiratory Rate 19 16 Blood Pressure 100/68 96/68 L Pulse Oximetry 96 99 Intake & Output 06/24/18 06/25/18 06/25/18 18:59 06:59 18:59 Intake Total 720 / 720 Balance 720 / 720 Weight 55.5 kg Intake: Oral 720 / 720 Other: # Voids 2 Date of Last Bowel Movement 06/22/18 06/24/18 # Bowel Movements 0 - Constitutional no acute distress (no change clinically.) Results - Labs CBC & Chem 7: 06/07/18 07:51 06/07/18 07:51 Assessment and Plan - Assessment (1) Altered mental status Code(s): R41.82 - Altered mental status, unspecified Status: Chronic Plan: .. (2) Anemia Code(s): D64.9 - Anemia, unspecified Status: Chronic Plan: .. (3) Tachyarrhythmia Code(s): R00.0 - Tachycardia, unspecified Status: Chronic Plan: .. (4) COPD (chronic obstructive pulmonary disease) Code(s): J44.9 - Chronic obstructive pulmonary disease, unspecified Status: Chronic Plan: .. (5) HTN (hypertension) Code(s): I10 - Essential (primary) hypertension Status: Chronic Plan: (2) Anemia Qualifiers: Anemia type: unspecified type Qualified Code(s): D64.9 - Anemia, unspecified .. 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 Acute kidney injury on chronic -stable -Avoid nephrotoxins Altered mental status- Improved cooperative and appropriate -CT head negative, normal TSH, normal RPR, normal ammonia level -Consider Wernicke's encephalopathy, continue thiamine, continue seizure precautions -Psych declined admission, they feel this is alcohol-related. Not competent to make decisions. -Continuing Seroquel 50 mg nightly -Case management working on guardianship appointment to obtain accepting facility -Continues to have intermittent confusion, although mostly oriented. Family unwilling to take care of the patient. Generalized weakness - improved, up and ambulating -UA negative, no electrolyte imbalance noted Anemia -Gastroenterology consulted, recommends outpatient follow-up -H&H improved, stable EtOH -Counseled on cessation -Continue vitamin D h/o COPD no SOB DVT Prophylaxis: ambulatory continue current care. Discharge Planning: awaiting placement. (2) Anemia Qualifiers: Anemia type: unspecified type Qualified Code(s): D64.9 - Anemia, unspecified
[2018-06-25] MEDS: QUEtiapine 25 MG Tablet PO SCH (21:04)
[2018-06-26] MEDS: Senna/Docusate Sodium 8.6/50 MG Tablet PO SCH ×2 (09:09→21:30)
[2018-06-26] MEDS: Metoprolol Tartrate 25 MG Tablet PO SCH ×2 (09:11→21:31)
--- NOTE | 2018-06-26 11:20 | P.PNIM ---
Subjective Interval history: in no acute distress. clinically no change. no new complaints. Physical Exam Vital signs: Vital Signs 06/25/18 20:00 06/25/18 21:04 06/26/18 08:00 Temperature 97.7 F 98.0 F Pulse Rate 95 H 67 Respiratory Rate 16 16 Blood Pressure 131/76 109/88 97/68 L Pulse Oximetry 98 97 Intake & Output 06/25/18 06/26/18 06/26/18 18:59 06:59 18:59 Intake Total 720 / 720 Balance 720 / 720 Weight 55.8 kg Intake: Oral 720 / 720 Other: Date of Last Bowel Movement 06/24/18 - Constitutional no acute distress (clinically no change.) Results - Labs CBC & Chem 7: 06/07/18 07:51 06/07/18 07:51 Assessment and Plan - Assessment (1) Altered mental status Code(s): R41.82 - Altered mental status, unspecified Status: Chronic Plan: .. (2) Anemia Code(s): D64.9 - Anemia, unspecified Status: Chronic Plan: .. (3) Tachyarrhythmia Code(s): R00.0 - Tachycardia, unspecified Status: Chronic Plan: .. (4) COPD (chronic obstructive pulmonary disease) Code(s): J44.9 - Chronic obstructive pulmonary disease, unspecified Status: Chronic Plan: .. (5) HTN (hypertension) Code(s): I10 - Essential (primary) hypertension Status: Chronic Plan: (2) Anemia Qualifiers: Anemia type: unspecified type Qualified Code(s): D64.9 - Anemia, unspecified .. 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 Acute kidney injury on chronic -stable -Avoid nephrotoxins Altered mental status- Improved cooperative and appropriate -CT head negative, normal TSH, normal RPR, normal ammonia level -Consider Wernicke's encephalopathy, continue thiamine, continue seizure precautions -Psych declined admission, they feel this is alcohol-related. Not competent to make decisions. -Continuing Seroquel 50 mg nightly -Case management working on guardianship appointment to obtain accepting facility -Continues to have intermittent confusion, although mostly oriented. Family unwilling to take care of the patient. Generalized weakness - improved, up and ambulating -UA negative, no electrolyte imbalance noted Anemia -Gastroenterology consulted, recommends outpatient follow-up -H&H improved, stable EtOH -Counseled on cessation -Continue thiamine h/o COPD no SOB DVT Prophylaxis: ambulatory continue current care. Discharge Planning: awaiting placement. (2) Anemia Qualifiers: Anemia type: unspecified type Qualified Code(s): D64.9 - Anemia, unspecified
[2018-06-26] MEDS: QUEtiapine 25 MG Tablet PO SCH (21:30)
[2018-06-27] MEDS: Metoprolol Tartrate 25 MG Tablet PO SCH ×2 (08:54→20:49)
[2018-06-27] MEDS: Senna/Docusate Sodium 8.6/50 MG Tablet PO SCH ×2 (08:54→20:48)
--- NOTE | 2018-06-27 11:42 | P.PNIM ---
Subjective Interval history: in no distress. clinically no change. Physical Exam Vital signs: Vital Signs 06/26/18 20:00 06/26/18 20:45 06/27/18 08:00 Temperature 97.8 F 97.9 F Pulse Rate 98 H 94 H Respiratory Rate 18 18 16 Blood Pressure 117/77 105/61 Pulse Oximetry 98 98 Intake & Output 06/26/18 06/27/18 06/27/18 18:59 06:59 18:59 Intake Total 360 / 360 Output Total 1400 / 1400 Balance -1040 / -1040 Weight 55.8 kg Intake: Oral 360 / 360 Output: Urine 1400 / 1400 Other: # Bowel Movements 1 - Constitutional no acute distress (clinically no change.) Results - Labs CBC & Chem 7: 06/07/18 07:51 06/07/18 07:51 Assessment and Plan - Assessment (1) Altered mental status Code(s): R41.82 - Altered mental status, unspecified Status: Chronic Plan: .. (2) Anemia Code(s): D64.9 - Anemia, unspecified Status: Chronic Plan: .. (3) Tachyarrhythmia Code(s): R00.0 - Tachycardia, unspecified Status: Chronic Plan: .. (4) COPD (chronic obstructive pulmonary disease) Code(s): J44.9 - Chronic obstructive pulmonary disease, unspecified Status: Chronic Plan: .. (5) HTN (hypertension) Code(s): I10 - Essential (primary) hypertension Status: Chronic Plan: (2) Anemia Qualifiers: Anemia type: unspecified type Qualified Code(s): D64.9 - Anemia, unspecified .. 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 Acute kidney injury on chronic -stable -Avoid nephrotoxins Altered mental status- Improved cooperative and appropriate -CT head negative, normal TSH, normal RPR, normal ammonia level -Consider Wernicke's encephalopathy, continue thiamine, continue seizure precautions -Psych declined admission, they feel this is alcohol-related. Not competent to make decisions. -Continuing Seroquel 50 mg nightly -Case management working on guardianship appointment to obtain accepting facility -Continues to have intermittent confusion, although mostly oriented. Family unwilling to take care of the patient. Generalized weakness - improved, up and ambulating -UA negative, no electrolyte imbalance noted Anemia -Gastroenterology consulted, recommends outpatient follow-up -H&H improved, stable EtOH -Counseled on cessation -Continue thiamine h/o COPD no SOB DVT Prophylaxis: ambulatory continue current care. Discharge Planning: awaiting placement. (2) Anemia Qualifiers: Anemia type: unspecified type Qualified Code(s): D64.9 - Anemia, unspecified
[2018-06-27] MEDS: QUEtiapine 25 MG Tablet PO SCH (20:48)
[2018-06-28] MEDS: Senna/Docusate Sodium 8.6/50 MG Tablet PO SCH ×2 (09:20→20:54)
[2018-06-28] MEDS: Metoprolol Tartrate 25 MG Tablet PO SCH ×2 (09:21→20:54)
--- NOTE | 2018-06-28 09:57 | P.PNIM ---
Subjective Interval history: in no acute distress. d/w the RN and no acute issues over night. Physical Exam Vital signs: Vital Signs 06/27/18 20:00 06/28/18 08:00 Temperature 97.8 F 97.5 F L Pulse Rate 108 H 80 Respiratory Rate 18 16 Blood Pressure 106/84 97/62 L Pulse Oximetry 97 96 Intake & Output 06/27/18 06/28/18 06/28/18 18:59 06:59 18:59 Intake Total 420 / 420 960 / 960 Output Total 4 / 4 Balance 416 / 416 960 / 960 Intake: Oral 420 / 420 960 / 960 Output: Urine / Other: # Voids 3 # Bowel Movements 0 - Constitutional no acute distress (clinically no change.) Results - Labs CBC & Chem 7: 06/07/18 07:51 06/07/18 07:51 Assessment and Plan - Assessment (1) Altered mental status Code(s): R41.82 - Altered mental status, unspecified Status: Chronic Plan: .. (2) Anemia Code(s): D64.9 - Anemia, unspecified Status: Chronic Plan: .. (3) Tachyarrhythmia Code(s): R00.0 - Tachycardia, unspecified Status: Chronic Plan: .. (4) COPD (chronic obstructive pulmonary disease) Code(s): J44.9 - Chronic obstructive pulmonary disease, unspecified Status: Chronic Plan: .. (5) HTN (hypertension) Code(s): I10 - Essential (primary) hypertension Status: Chronic Plan: (2) Anemia Qualifiers: Anemia type: unspecified type Qualified Code(s): D64.9 - Anemia, unspecified .. 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 Acute kidney injury on chronic -stable -Avoid nephrotoxins Altered mental status- Improved cooperative and appropriate -CT head negative, normal TSH, normal RPR, normal ammonia level -Consider Wernicke's encephalopathy, continue thiamine, continue seizure precautions -Psych declined admission, they feel this is alcohol-related. Not competent to make decisions. -Continuing Seroquel 50 mg nightly -Case management working on guardianship appointment to obtain accepting facility -Continues to have intermittent confusion, although mostly oriented. Family unwilling to take care of the patient. Generalized weakness - improved, up and ambulating -UA negative, no electrolyte imbalance noted Anemia -Gastroenterology consulted, recommends outpatient follow-up -H&H improved, stable EtOH -Counseled on cessation -Continue thiamine h/o COPD no SOB DVT Prophylaxis: ambulatory no change clinically. continue current care. Discharge Planning: awaiting placement. (2) Anemia Qualifiers: Anemia type: unspecified type Qualified Code(s): D64.9 - Anemia, unspecified
[2018-06-28] MEDS: QUEtiapine 25 MG Tablet PO SCH (20:54)
[2018-06-29] MEDS: Metoprolol Tartrate 25 MG Tablet PO SCH ×2 (08:50→21:14)
[2018-06-29] MEDS: Senna/Docusate Sodium 8.6/50 MG Tablet PO SCH ×2 (08:50→21:14)
--- NOTE | 2018-06-29 13:51 | P.PN ---
Subjective Interval history: Follow-up altered mental status,EtOH, anemia, general weakness and hypertension. Patient is sitting in her bed, pleasant. She is able to hold a conversation. Often attributes her problems to alcohol use. Physical Exam Vital signs: Vital Signs 06/28/18 20:00 06/29/18 00:00 06/29/18 04:00 Temperature 97.9 F Pulse Rate 89 Respiratory Rate 20 20 20 Blood Pressure 120/75 Pulse Oximetry 98 06/29/18 08:00 Temperature 97.5 F L Pulse Rate 65 Respiratory Rate 20 Blood Pressure 94/55 L Pulse Oximetry 99 Intake & Output 06/28/18 06/29/18 06/29/18 18:59 06:59 18:59 Intake Total 960 / 960 Balance 960 / 960 Weight 54 kg Intake: Oral 960 / 960 Other: # Voids 4 Narrative: GENERAL: Alert, oriented to person, place, month, year. SKIN: Warm and dry. HEAD: Normocephalic. EYES: No scleral icterus. No injection or drainage. NECK: Supple, trachea midline. No JVD or lymphadenopathy. CARDIOVASCULAR: Regular rate and rhythm without murmurs, gallops, or rubs. RESPIRATORY: Breath sounds equal bilaterally. No accessory muscle use. GASTROINTESTINAL: Abdomen soft, non-tender, nondistended. MUSCULOSKELETAL: No cyanosis, or edema. BACK: Nontender without obvious deformity. No CVA tenderness. Results - Labs CBC & Chem 7: 06/07/18 07:51 06/07/18 07:51 Assessment and Plan - Assessment (1) Altered mental status Code(s): R41.82 - Altered mental status, unspecified Status: Chronic Plan: .. (2) Anemia Code(s): D64.9 - Anemia, unspecified Status: Chronic Plan: .. (3) Tachyarrhythmia Code(s): R00.0 - Tachycardia, unspecified Status: Chronic Plan: .. (4) COPD (chronic obstructive pulmonary disease) Code(s): J44.9 - Chronic obstructive pulmonary disease, unspecified Status: Chronic Plan: .. (5) HTN (hypertension) Code(s): I10 - Essential (primary) hypertension Status: Chronic Plan: (2) Anemia Qualifiers: Anemia type: unspecified type Qualified Code(s): D64.9 - Anemia, unspecified .. 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 Patient was brought to [facility] on 12/13 by friend for confusion x 2 weeks weakness and flu like symptoms. Patient was admitted to [facility] from 12/13/17 to 12/18/17 treated for metabolic encephalopathy related to UTI and then DC'd to [facility]. Patient was seen in the emergency department related to altered mentation and anemia . The patient at that time was had hemoglobin of 9.3 and her rectal examination was negative for blood. She was deemed safe for discharge with follow-up as an outpatient. Patient again presented to the ER 12/25/17 for increased altered mentation since falling at her [facility] at approximately 8 :15 AM 12/25. The patient has a baseline history of altered mentation that is thought to be related to her history of alcohol abuse and Wernicke's encephalopathy. Psychiatry determined that she is not competent to make her own medical decisions. History of AVNRT Hypertension -S/P AV ann ablation on 02/15/2017. -Continue on low-dose metoprolol 6.25 mg po bid - hold parameters in place. Acute kidney injury on chronic -stable - creatinine around 1.4 -Avoid nephrotoxins Altered mental status- Improved, cooperative and appropriate -CT head negative, normal TSH, normal RPR, normal ammonia level -Possibly Wernicke's encephalopathy, continue thiamine, continue seizure precautions -Psych declined admission, they feel this is alcohol-related. Not competent to make decisions. -Continuing Seroquel 50 mg nightly -Case management working on guardianship appointment to obtain accepting facility -Continues to have intermittent confusion, although mostly oriented. Family unwilling to take care of the patient. Generalized weakness - improved, up and ambulating. Resolved. Anemia -Gastroenterology consulted, recommends outpatient follow-up -H&H improved, stable around 11. EtOH -Counseled on cessation -Continue thiamine Full code. Ambulation. 06/29/2018: No major changes in management. Continue supportive care. Placement is difficult. (2) Anemia Qualifiers: Anemia type: unspecified type Qualified Code(s): D64.9 - Anemia, unspecified
[2018-06-29] MEDS: QUEtiapine 25 MG Tablet PO SCH (21:14)
[2018-06-30] MEDS: Metoprolol Tartrate 25 MG Tablet PO SCH ×2 (09:03→21:07)
[2018-06-30] MEDS: Senna/Docusate Sodium 8.6/50 MG Tablet PO SCH ×2 (09:03→21:07)
--- NOTE | 2018-06-30 16:31 | P.PN ---
Subjective Interval history: Follow-up altered mental status,EtOH, anemia, general weakness and hypertension. Patient is resting in bed. No acute concerns. Physical Exam Vital signs: Vital Signs 06/29/18 20:00 06/30/18 00:00 06/30/18 04:00 Temperature 98 F Pulse Rate 95 H Respiratory Rate 20 18 20 Blood Pressure 107/63 Pulse Oximetry 98 06/30/18 08:00 Temperature 98 F Pulse Rate 80 Respiratory Rate 20 Blood Pressure 99/56 L Pulse Oximetry 99 Intake & Output 06/29/18 06/30/18 06/30/18 18:59 06:59 18:59 Intake Total 480 / 480 360 / 360 Output Total Balance 480 / 480 359 / 359 Weight 54.1 kg Intake: Oral 480 / 480 360 / 360 Output: Stool Other: # Voids 3 Date of Last Bowel Movement 06/29/18 # Bowel Movements 1 Narrative: GENERAL: Alert, oriented to person, place, month, year. SKIN: Warm and dry. HEAD: Normocephalic. EYES: No scleral icterus. No injection or drainage. NECK: Supple, trachea midline. No JVD or lymphadenopathy. CARDIOVASCULAR: Regular rate and rhythm without murmurs, gallops, or rubs. RESPIRATORY: Breath sounds equal bilaterally. No accessory muscle use. GASTROINTESTINAL: Abdomen soft, non-tender, nondistended. MUSCULOSKELETAL: No cyanosis, or edema. BACK: Nontender without obvious deformity. No CVA tenderness. Results - Labs CBC & Chem 7: 06/07/18 07:51 06/07/18 07:51 Assessment and Plan - Assessment (1) Altered mental status Code(s): R41.82 - Altered mental status, unspecified Status: Chronic Plan: .. (2) Anemia Code(s): D64.9 - Anemia, unspecified Status: Chronic Plan: .. (3) Tachyarrhythmia Code(s): R00.0 - Tachycardia, unspecified Status: Chronic Plan: .. (4) COPD (chronic obstructive pulmonary disease) Code(s): J44.9 - Chronic obstructive pulmonary disease, unspecified Status: Chronic Plan: .. (5) HTN (hypertension) Code(s): I10 - Essential (primary) hypertension Status: Chronic Plan: (2) Anemia Qualifiers: Anemia type: unspecified type Qualified Code(s): D64.9 - Anemia, unspecified .. 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 Patient was brought to [facility] on 12/13 by friend for confusion x 2 weeks weakness and flu like symptoms. Patient was admitted to [facility] from 12/13/17 to 12/18/17 treated for metabolic encephalopathy related to UTI and then DC'd to [facility]. Patient was seen in the emergency department related to altered mentation and anemia . The patient at that time was had hemoglobin of 9.3 and her rectal examination was negative for blood. She was deemed safe for discharge with follow-up as an outpatient. Patient again presented to the ER 12/25/17 for increased altered mentation since falling at her custodial at approximately 8 :15 AM 12/25. The patient has a baseline history of altered mentation that is thought to be related to her history of alcohol abuse and Wernicke's encephalopathy. Psychiatry determined that she is not competent to make her own medical decisions. History of AVNRT Hypertension -S/P AV ann ablation on 02/15/2017. -Continue on low-dose metoprolol 6.25 mg po bid - hold parameters in place. Acute kidney injury on chronic -stable - creatinine around 1.4 -Avoid nephrotoxins Altered mental status- Improved, cooperative and appropriate -CT head negative, normal TSH, normal RPR, normal ammonia level -Possibly Wernicke's encephalopathy, continue thiamine, continue seizure precautions -Psych declined admission, they feel this is alcohol-related. Not competent to make decisions. -Continuing Seroquel 50 mg nightly -Case management working on guardianship appointment to obtain accepting facility -Continues to have intermittent confusion, although mostly oriented. Family unwilling to take care of the patient. Generalized weakness - improved, up and ambulating. Resolved. Anemia -Gastroenterology consulted, recommends outpatient follow-up -H&H improved, stable around 11. EtOH -Counseled on cessation -Continue thiamine Full code. Ambulation. 06/30/2018: No major changes in management. Continue supportive care. Placement is difficult. (2) Anemia Qualifiers: Anemia type: unspecified type Qualified Code(s): D64.9 - Anemia, unspecified
[2018-06-30] MEDS: QUEtiapine 25 MG Tablet PO SCH (21:07)
[2018-07-01] MEDS: Senna/Docusate Sodium 8.6/50 MG Tablet PO SCH ×2 (08:50→22:32)
[2018-07-01] MEDS: Metoprolol Tartrate 25 MG Tablet PO SCH ×2 (08:50→22:32)
[2018-07-01] MEDS: QUEtiapine 25 MG Tablet PO SCH (22:32)
[2018-07-02] MEDS: Metoprolol Tartrate 25 MG Tablet PO SCH ×2 (09:39→20:50)
[2018-07-02] MEDS: Senna/Docusate Sodium 8.6/50 MG Tablet PO SCH ×2 (09:40→20:50)
--- NOTE | 2018-07-02 17:55 | P.PN ---
Subjective Interval history: Delayed entry for 07/01/2018 Follow-up altered mental status,EtOH, anemia, general weakness and hypertension. Patient is currently doing well. She is ambulating well, tolerating diet well. Physical Exam Vital signs: Vital Signs 07/01/18 20:00 07/02/18 08:00 Temperature 97.6 F 97.4 F L Pulse Rate 94 H 79 Respiratory Rate 16 14 Blood Pressure 121/70 114/69 Pulse Oximetry 97 100 Intake & Output 07/01/18 07/02/18 07/02/18 18:59 06:59 18:59 Intake Total 720 / 720 500 / 500 Balance 720 / 720 500 / 500 Weight 54 kg Intake: Oral 720 / 720 500 / 500 Other: # Voids 3 # Bowel Movements 0 Narrative: GENERAL: Alert, oriented to person, place, month, year. SKIN: Warm and dry. HEAD: Normocephalic. EYES: No scleral icterus. No injection or drainage. NECK: Supple, trachea midline. No JVD or lymphadenopathy. CARDIOVASCULAR: Regular rate and rhythm without murmurs, gallops, or rubs. RESPIRATORY: Breath sounds equal bilaterally. No accessory muscle use. GASTROINTESTINAL: Abdomen soft, non-tender, nondistended. MUSCULOSKELETAL: No cyanosis, or edema. BACK: Nontender without obvious deformity. No CVA tenderness. Results - Labs CBC & Chem 7: 06/07/18 07:51 06/07/18 07:51 Assessment and Plan - Assessment (1) Altered mental status Code(s): R41.82 - Altered mental status, unspecified Status: Chronic Plan: .. (2) Anemia Code(s): D64.9 - Anemia, unspecified Status: Chronic Plan: .. (3) Tachyarrhythmia Code(s): R00.0 - Tachycardia, unspecified Status: Chronic Plan: .. (4) COPD (chronic obstructive pulmonary disease) Code(s): J44.9 - Chronic obstructive pulmonary disease, unspecified Status: Chronic Plan: .. (5) HTN (hypertension) Code(s): I10 - Essential (primary) hypertension Status: Chronic Plan: (2) Anemia Qualifiers: Anemia type: unspecified type Qualified Code(s): D64.9 - Anemia, unspecified .. 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 Patient was brought to [facility] on 12/13 by friend for confusion x 2 weeks weakness and flu like symptoms. Patient was admitted to [facility] from 12/13/17 to 12/18/17 treated for metabolic encephalopathy related to UTI and then DC'd to [facility]. Patient was seen in the emergency department related to altered mentation and anemia . The patient at that time was had hemoglobin of 9.3 and her rectal examination was negative for blood. She was deemed safe for discharge with follow-up as an outpatient. Patient again presented to the ER 12/25/17 for increased altered mentation since falling at her [facility] at approximately 8 :15 AM 12/25. The patient has a baseline history of altered mentation that is thought to be related to her history of alcohol abuse and Wernicke's encephalopathy. Psychiatry determined that she is not competent to make her own medical decisions. History of AVNRT Hypertension -S/P AV ann ablation on 02/15/2017. -Continue on low-dose metoprolol 6.25 mg po bid - hold parameters in place. Acute kidney injury on chronic -stable - creatinine around 1.4 -Avoid nephrotoxins Altered mental status- Improved, cooperative and appropriate -CT head negative, normal TSH, normal RPR, normal ammonia level -Possibly Wernicke's encephalopathy, continue thiamine, continue seizure precautions -Psych declined admission, they feel this is alcohol-related. Not competent to make decisions. -Continuing Seroquel 50 mg nightly -Case management working on guardianship appointment to obtain accepting facility -Continues to have intermittent confusion, although mostly oriented. Family unwilling to take care of the patient. Generalized weakness - improved, up and ambulating. Resolved. Anemia -Gastroenterology consulted, recommends outpatient follow-up -H&H improved, stable around 11. EtOH -Counseled on cessation -Continue thiamine Full code. Ambulation. 07/01/2018: No major changes in management. Continue supportive care. Placement is difficult. (2) Anemia Qualifiers: Anemia type: unspecified type Qualified Code(s): D64.9 - Anemia, unspecified
[2018-07-02] MEDS: QUEtiapine 25 MG Tablet PO SCH (20:50)
[2018-07-03] MEDS: Metoprolol Tartrate 25 MG Tablet PO SCH ×2 (09:12→21:44)
[2018-07-03] MEDS: Senna/Docusate Sodium 8.6/50 MG Tablet PO SCH ×2 (09:16→21:45)
--- NOTE | 2018-07-03 11:54 | P.PNPSY ---
Subjective Remarks: The patient was seen today for psychiatric reevaluation along with charge nurse of the floor Dafne. This case was also discussed with rn social work of the floor Alessandra. On my psychiatric evaluation today I find a patient that is calm, cooperative, in a good spirit, very pleasant. The patient reports that she is ready to be discharged, that she has a friend who is willing to come and pick her up and have her living with him. The patient denies symptomatology of depression, she denies anhedonia, she denies hopelessness, denies helplessness, she denies suicidal and homicidal ideation, she denies visual and auditory hallucinations. The patient shows periodic confusion, but she is fully oriented x3, able to tell me the reason of her hospitalization, who is the president of [place], scores 25 in MMS, with some deficit and recent recall, and executive function. No agitation, no aggressive behavior, no paranoia, no loosening of associations, no ideas of reference present at the moment. Mental Status Examination Appearance: Appropriate Consciousness: Alert Orientation: x4 Motor Activity: Normal gait Speech: Unremarkable Language: Adequate Fund of Knowledge: Adequate Attention and Concentration: Adequate Memory: Unremarkable, Impaired Mood: Appropriate Affect: Appropriate Thought Process & Associations: Intact Thought Content: Appropriate Hallucination Type: None Delusion Type: None Suicidal Ideation: No Suicidal Plan: No Suicidal Intention: No Homicidal Ideation: No Homicidal Plan: No Homicidal Intention: No Insight: Fair Judgment: Impulsive Assessment and Plan - Assessment (1) 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 The patient denies depression, anxiety, salvador and psychosis. She denies suicidal and homicidal ideation, denies visual and auditory hallucinations. The condition of the patient has definitely improved since the last time I saw her, now she is oriented x3, able to tell me the reason of her hospitalization and she has a discharge plan which is going to live with a Friend. As per rn social work in the medical floor, this friend has been contacted and agreed with this plan. The patient scores 25 mm suggesting that she does have a mild to moderate cognitive impairment which could lead to poor judgmental mental decisions in the future, but at this moment there is no medical/mental reason to deprived the patient for her capacity to participate in a discharge plan. Continue current psychotropic regimen. Support, motivational psych education provided. Justification for Continued Inpatient Stay: No admission in psychiatry is indicated.
--- NOTE | 2018-07-03 14:12 | P.DS ---
Date of admission: 01/09/18 11:23 Primary care physician: UNKNOWN Attending physician on discharge: Gustavo Peñaloza Anticipated date of discharge: 07/03/18 Brief History from admission: Date of admission 12/26/2017 The patient is a 52 year old female with past medical history which includes Abnormal LFTs, EtOH abuse, chronic back pain, COPD, hypertension, tachyarrhythmia s/p EPS with ablation of AV re-entry node tachycardia Dr. Vazquez 2016. Patient is currently confused information gathered from patient as well as prior charting. Patient was brought to [facility] on by friend for confusion x 2 weeks weakness and flu like symptoms. Patient was admitted to [facility] from 12/13/17 to 12/18/17 treated for metabolic encephalopathy related to UTI and then DC'd to [facility]. Patient was seen in the [facility] emergency department related to altered mentation and anemia 12/24/18. The patient at that time was had hemoglobin of 9.3 and her rectal examination was negative for blood. She was deemed safe for discharge with follow-up as an outpatient. Patient again presented to the ER 12/25/17 for increased altered mentation since [facility] 8 :15 AM 12/25. The patient has a baseline history of altered mentation that is thought to be related to her history of alcohol abuse and Wernicke's encephalopathy. Discussed patient with nurse at [facility] who reports patient has been confused since admission with agitation at times. Patient is able to correctly provide her name, that she is in [place] but unable to give city, patient also able to provide year but not the month or day. Patient reports that she has had a cold for a, "awhile." offers no other complaints at this time. Patient update on day of discharge: Patient is doing well. Ambulating well, tolerating diet well. No acute concerns. Happy to be able to go home. DS: Diagnosis - Discharge Diagnosis (1) Altered mental status Status: Chronic (2) Anemia Status: Chronic (3) Tachyarrhythmia Status: Chronic (4) COPD (chronic obstructive pulmonary disease) Status: Chronic (5) HTN (hypertension) Status: Chronic (6) Alcoholic Korsakoff syndrome Status: Acute DS: Medications - Discharge Medications Prescriptions: folic acid 1 mg PO DAILY #30 tab metoprolol tartrate 6.25 mg PO Q12HR 30 Days tab quetiapine 50 mg PO HS #30 tab thiamine HCl (vitamin B1) 100 mg PO DAILY #30 tab DS: Summary Hospital Course: The patient is a 52 year old female with past medical history which includes Abnormal LFTs, EtOH abuse, chronic back pain, COPD, hypertension, SVT. Patient was brought to [facility] on 12/13 by friend for confusion x 2 weeks weakness and flu like symptoms. Patient was admitted to [facility] from 12/13/17 to 12/18/17 treated for metabolic encephalopathy related to UTI and then DC'd to [facility]. Patient was seen in the emergency department related to altered mentation and anemia . The patient at that time was had hemoglobin of 9.3 and her rectal examination was negative for blood. She was deemed safe for discharge with follow-up as an outpatient. Patient again presented to the ER 12/25/17 for increased altered mentation since [facility] at approximately 8 :15 AM 12/25. The patient has a baseline history of altered mentation that is thought to be related to her history of alcohol abuse and Wernicke's encephalopathy. Psychiatry determined that she is not competent to make her own medical decisions. History of AVNRT Hypertension -S/P AV ann ablation on 02/15/2017. -Continue on low-dose metoprolol 6.25 mg po bid - hold parameters in place. Acute kidney injury on chronic -stable - creatinine around 1.4 -Avoid nephrotoxins Altered mental status- Improved, cooperative and appropriate -CT head negative, normal TSH, normal RPR, normal ammonia level -Possibly Wernicke's encephalopathy, continue thiamine, continue seizure precautions -Psych declined admission, they feel this is alcohol-related. Not competent to make decisions. -Continuing Seroquel 50 mg nightly -Case management working on guardianship appointment to obtain accepting facility -Continues to have intermittent confusion, although mostly oriented. Family unwilling to take care of the patient. Generalized weakness - improved, up and ambulating. Resolved. Anemia -Gastroenterology consulted, recommends outpatient follow-up -H&H improved, stable around 11. EtOH -Counseled on cessation -Continue thiamine Overall, patient is doing well. I have evaluated patient on two occasions and I feel that she does have capacity to make decisions for herself. We requested a repeat eval by psychiatry who also agreed that patient has capacity. She wants to go and live with her friend. We will discharge patient home. - Time Spent with Patient Total time spent providing and/or coordinating discharge services: Less than 30 minutes Exam Vital signs: Vital Signs 07/02/18 20:00 07/03/18 08:00 Temperature 97.6 F 97.9 F Pulse Rate 87 91 H Respiratory Rate 19 16 Blood Pressure 122/76 103/67 Pulse Oximetry 96 99 Intake & Output 07/02/18 07/03/18 07/03/18 18:59 06:59 18:59 Intake Total 480 / 480 Balance 480 / 480 Intake: Oral 480 / 480 Other: # Voids 2 # Bowel Movements 1 Narrative: GENERAL: Alert, oriented to person, place, month, year. Coherent thoughts. SKIN: Warm and dry. HEAD: Normocephalic. EYES: No scleral icterus. No injection or drainage. NECK: Supple, trachea midline. No JVD or lymphadenopathy. CARDIOVASCULAR: Regular rate and rhythm without murmurs, gallops, or rubs. RESPIRATORY: Breath sounds equal bilaterally. No accessory muscle use. GASTROINTESTINAL: Abdomen soft, non-tender, nondistended. MUSCULOSKELETAL: No cyanosis, or edema. BACK: Nontender without obvious deformity. No CVA tenderness. Results Procedures completed during hospitalization: none Discharge Plan - Discharge Disposition Patient Disposition: Discharge Home - Discharge Condition Condition: Good - Discharge Order Discharge Orders: Discharge Order (Routine); Ordered 07/03/18 Ordered By: Gustavo Peñaloza - Discharge Details Anticipated Discharge Date: 07/03/18 - Physicians Team Primary Care Provider: UNKNOWN, Attending Provider: Gustavo Peñaloza Other Providers: Lai Marley MD ; [facility] ; [facility] ; [facility] ; [facility] ; [facility]ency ; Jeronimo Blank, PhD ; Rolo Serrano MD - Rxs /Orders / Referrals /Forms Prescriptions: New folic acid 1 mg Tablet 1 mg PO DAILY Qty: 30 RF: 11 metoprolol tartrate 25 mg Tablet 6.25 mg PO Q12HR 30 Days RF: 3 quetiapine 25 mg Tablet 50 mg PO HS Qty: 30 RF: 3 thiamine HCl (vitamin B1) 100 mg Tablet 100 mg PO DAILY Qty: 30 RF: 11 Continue docusate sodium 100 mg Capsule 100 mg PO BID pantoprazole 20 mg Tablet,Delayed Release (Dr/Ec) 20 mg PO DAILY Discontinued ferrous sulfate 325 mg (65 mg iron) Tablet 325 mg PO BIDPC lorazepam 0.5 mg Tablet 0.5 mg PO BID metoprolol tartrate 25 mg Tablet 25 mg PO Q12HR quetiapine 25 mg Tablet 75 mg PO DAILY Referrals: UNKNOWN, [Primary Care Provider] - See Instructions (Follow up with [facility] [phone] within 1-2 weeks. )
[2018-07-03] MEDS: QUEtiapine 25 MG Tablet PO SCH (21:45)
[2018-07-04] MEDS: Metoprolol Tartrate 25 MG Tablet PO SCH ×2 (12:58→21:12)
[2018-07-04] MEDS: Senna/Docusate Sodium 8.6/50 MG Tablet PO SCH ×2 (12:59→21:13)
--- NOTE | 2018-07-04 16:16 | P.PN ---
Subjective Interval history: Follow-up altered mental status,EtOH, anemia, general weakness and hypertension. Patient is doing well, ambulating well. No acute concerns. No fever, chills. Physical Exam Vital signs: Vital Signs 07/03/18 20:00 07/04/18 00:00 07/04/18 04:00 Temperature 97.6 F Pulse Rate 74 Respiratory Rate 18 20 20 Blood Pressure 130/77 Pulse Oximetry 100 07/04/18 08:00 Temperature 98 F Pulse Rate 77 Respiratory Rate 18 Blood Pressure 96/66 L Pulse Oximetry 97 Intake & Output 07/03/18 07/04/18 07/04/18 18:59 06:59 18:59 Intake Total 1800 / 1800 Balance 1800 / 1800 Weight 53.6 kg Intake: Oral 1800 / 1800 Other: # Voids 2 # Urine Diapers 3 Date of Last Bowel Movement 07/03/18 07/02/18 # Bowel Movements 2 0 Narrative: GENERAL: Alert, oriented to person, place, month, year. Coherent thoughts. SKIN: Warm and dry. HEAD: Normocephalic. EYES: No scleral icterus. No injection or drainage. NECK: Supple, trachea midline. No JVD or lymphadenopathy. CARDIOVASCULAR: Regular rate and rhythm without murmurs, gallops, or rubs. RESPIRATORY: Breath sounds equal bilaterally. No accessory muscle use. GASTROINTESTINAL: Abdomen soft, non-tender, nondistended. MUSCULOSKELETAL: No cyanosis, or edema. BACK: Nontender without obvious deformity. No CVA tenderness. Results - Labs CBC & Chem 7: 06/07/18 07:51 06/07/18 07:51 - Procedures none Assessment and Plan - Assessment (1) Altered mental status Code(s): R41.82 - Altered mental status, unspecified Status: Chronic Plan: .. (2) Anemia Code(s): D64.9 - Anemia, unspecified Status: Chronic Plan: .. (3) Tachyarrhythmia Code(s): R00.0 - Tachycardia, unspecified Status: Chronic Plan: .. (4) COPD (chronic obstructive pulmonary disease) Code(s): J44.9 - Chronic obstructive pulmonary disease, unspecified Status: Chronic Plan: .. (5) HTN (hypertension) Code(s): I10 - Essential (primary) hypertension Status: Chronic Plan: (2) Anemia Qualifiers: Anemia type: unspecified type Qualified Code(s): D64.9 - Anemia, unspecified .. 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 Patient was brought to [facility] on 12/13 by friend for confusion x 2 weeks weakness and flu like symptoms. Patient was admitted to [facility] from 12/13/17 to 12/18/17 treated for metabolic encephalopathy related to UTI and then DC'd to [facility]. Patient was seen in the emergency department related to altered mentation and anemia . The patient at that time was had hemoglobin of 9.3 and her rectal examination was negative for blood. She was deemed safe for discharge with follow-up as an outpatient. Patient again presented to the ER 12/25/17 for increased altered mentation since falling at her care home at approximately 8 :15 AM 12/25. The patient has a baseline history of altered mentation that is thought to be related to her history of alcohol abuse and Wernicke's encephalopathy. Psychiatry determined that she is not competent to make her own medical decisions. History of AVNRT Hypertension -S/P AV ann ablation on 02/15/2017. -Continue on low-dose metoprolol 6.25 mg po bid - hold parameters in place. Acute kidney injury on chronic -stable - creatinine around 1.4 -Avoid nephrotoxins Altered mental status- Improved, cooperative and appropriate -CT head negative, normal TSH, normal RPR, normal ammonia level -Possibly Wernicke's encephalopathy, continue thiamine, continue seizure precautions -Psych declined admission, they feel this is alcohol-related. Not competent to make decisions. -Continuing Seroquel 50 mg nightly -Case management working on guardianship appointment to obtain accepting facility -Continues to have intermittent confusion, although mostly oriented. Family unwilling to take care of the patient. Generalized weakness - improved, up and ambulating. Resolved. Anemia -Gastroenterology consulted, recommends outpatient follow-up -H&H improved, stable around 11. EtOH -Counseled on cessation -Continue thiamine Full code. Ambulation. 07/04/2018: No major changes in management. Continue supportive care. Patient has been discharged as of 07/03/2018 after determination that she has capacity with which I agree. Patient is supposed to go with a friend. However, it has been difficult to get in touch with that friend. (2) Anemia Qualifiers: Anemia type: unspecified type Qualified Code(s): D64.9 - Anemia, unspecified
[2018-07-04] MEDS: QUEtiapine 25 MG Tablet PO SCH (21:13)
[2018-07-05] MEDS: Senna/Docusate Sodium 8.6/50 MG Tablet PO SCH ×2 (10:20→21:14)
[2018-07-05] MEDS: Metoprolol Tartrate 25 MG Tablet PO SCH ×2 (10:20→21:13)
--- NOTE | 2018-07-05 16:39 | P.PN ---
Subjective Interval history: Follow-up altered mental status,EtOH, anemia, general weakness and hypertension. Patient is doing well. No acute concerns. No contact with patient' s friend yet. Physical Exam Vital signs: Vital Signs 07/04/18 20:00 07/05/18 01:56 07/05/18 04:00 Temperature 97.9 F Pulse Rate 86 Respiratory Rate 16 18 18 Blood Pressure 111/90 Pulse Oximetry 99 07/05/18 08:00 07/05/18 09:26 Temperature 97.7 F Pulse Rate 107 H 84 Respiratory Rate 18 Blood Pressure 85/61 L 103/58 L Pulse Oximetry 96 Intake & Output 07/04/18 07/05/18 07/05/18 18:59 06:59 18:59 Intake Total 360 / 360 422 / 422 Balance 360 / 360 422 / 422 Weight 54 kg Intake: Oral 360 / 360 422 / 422 Other: # Voids 3 3 # Urine Diapers 3 Date of Last Bowel Movement 07/04/18 # Bowel Movements 0 Narrative: GENERAL: Alert, oriented to person, place, month, year. Coherent thoughts. SKIN: Warm and dry. HEAD: Normocephalic. EYES: No scleral icterus. No injection or drainage. NECK: Supple, trachea midline. No JVD or lymphadenopathy. CARDIOVASCULAR: Regular rate and rhythm without murmurs, gallops, or rubs. RESPIRATORY: Breath sounds equal bilaterally. No accessory muscle use. GASTROINTESTINAL: Abdomen soft, non-tender, nondistended. MUSCULOSKELETAL: No cyanosis, or edema. BACK: Nontender without obvious deformity. No CVA tenderness. Results - Labs CBC & Chem 7: 06/07/18 07:51 06/07/18 07:51 - Procedures none Assessment and Plan - Assessment (1) Altered mental status Code(s): R41.82 - Altered mental status, unspecified Status: Chronic Plan: .. (2) Anemia Code(s): D64.9 - Anemia, unspecified Status: Chronic Plan: .. (3) Tachyarrhythmia Code(s): R00.0 - Tachycardia, unspecified Status: Chronic Plan: .. (4) COPD (chronic obstructive pulmonary disease) Code(s): J44.9 - Chronic obstructive pulmonary disease, unspecified Status: Chronic Plan: .. (5) HTN (hypertension) Code(s): I10 - Essential (primary) hypertension Status: Chronic Plan: (2) Anemia Qualifiers: Anemia type: unspecified type Qualified Code(s): D64.9 - Anemia, unspecified .. 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 Patient was brought to [facility] on 12/13 by friend for confusion x 2 weeks weakness and flu like symptoms. Patient was admitted to [facility] from 12/13/17 to 12/18/17 treated for metabolic encephalopathy related to UTI and then DC'd to [facility]. Patient was seen in the emergency department related to altered mentation and anemia . The patient at that time was had hemoglobin of 9.3 and her rectal examination was negative for blood. She was deemed safe for discharge with follow-up as an outpatient. Patient again presented to the ER 12/25/17 for increased altered mentation since falling at her intermediate at approximately 8 :15 AM 12/25. The patient has a baseline history of altered mentation that is thought to be related to her history of alcohol abuse and Wernicke's encephalopathy. Psychiatry determined that she is not competent to make her own medical decisions. History of AVNRT Hypertension -S/P AV ann ablation on 02/15/2017. -Continue on low-dose metoprolol 6.25 mg po bid - hold parameters in place. Acute kidney injury on chronic -stable - creatinine around 1.4 -Avoid nephrotoxins Altered mental status- Improved, cooperative and appropriate -CT head negative, normal TSH, normal RPR, normal ammonia level -Possibly Wernicke's encephalopathy, continue thiamine, continue seizure precautions -Psych declined admission, they feel this is alcohol-related. Not competent to make decisions. -Continuing Seroquel 50 mg nightly -Case management working on guardianship appointment to obtain accepting facility -Continues to have intermittent confusion, although mostly oriented. Family unwilling to take care of the patient. Generalized weakness - improved, up and ambulating. Resolved. Anemia -Gastroenterology consulted, recommends outpatient follow-up -H&H improved, stable around 11. EtOH -Counseled on cessation -Continue thiamine Full code. Ambulation. 07/05/2018: Patient has capacity. Discharged to go with her friend. However, we have not able to get in touch with her friend. (2) Anemia Qualifiers: Anemia type: unspecified type Qualified Code(s): D64.9 - Anemia, unspecified
[2018-07-05] MEDS: QUEtiapine 25 MG Tablet PO SCH (21:14)
[2018-07-06] MEDS: Senna/Docusate Sodium 8.6/50 MG Tablet PO SCH ×2 (09:35→20:44)
[2018-07-06] MEDS: Metoprolol Tartrate 25 MG Tablet PO SCH ×2 (09:35→20:44)
[2018-07-06] MEDS: QUEtiapine 25 MG Tablet PO SCH (20:44)
--- NOTE | 2018-07-06 20:58 | P.PN ---
Subjective Interval history: Follow-up altered mental status,EtOH, anemia, general weakness and hypertension. Patient is currently doing well. No acute concerns. Ambulating well, tolerating diet well. Physical Exam Vital signs: Vital Signs 07/06/18 08:00 07/06/18 20:00 Temperature 98 F 98.9 F Pulse Rate 91 H 80 Respiratory Rate 16 16 Blood Pressure 107/65 102/67 Pulse Oximetry 98 95 Intake & Output 07/06/18 07/06/18 07/07/18 06:59 18:59 06:59 Intake Total 480 / 480 480 / 480 Balance 480 / 480 480 / 480 Weight 54.8 kg Intake: Oral 480 / 480 480 / 480 Other: # Voids 2 111 # Bowel Movements 0 Narrative: GENERAL: Alert, NAD. Coherent thoughts. SKIN: Warm and dry. HEAD: Normocephalic. EYES: No scleral icterus. No injection or drainage. NECK: Supple, trachea midline. No JVD or lymphadenopathy. CARDIOVASCULAR: Regular rate and rhythm without murmurs, gallops, or rubs. RESPIRATORY: Breath sounds equal bilaterally. No accessory muscle use. GASTROINTESTINAL: Abdomen soft, non-tender, nondistended. MUSCULOSKELETAL: No cyanosis, or edema. BACK: Nontender without obvious deformity. No CVA tenderness. Results - Labs CBC & Chem 7: 06/07/18 07:51 06/07/18 07:51 - Procedures none Assessment and Plan - Assessment (1) Altered mental status Code(s): R41.82 - Altered mental status, unspecified Status: Chronic Plan: .. (2) Anemia Code(s): D64.9 - Anemia, unspecified Status: Chronic Plan: .. (3) Tachyarrhythmia Code(s): R00.0 - Tachycardia, unspecified Status: Chronic Plan: .. (4) COPD (chronic obstructive pulmonary disease) Code(s): J44.9 - Chronic obstructive pulmonary disease, unspecified Status: Chronic Plan: .. (5) HTN (hypertension) Code(s): I10 - Essential (primary) hypertension Status: Chronic Plan: (2) Anemia Qualifiers: Anemia type: unspecified type Qualified Code(s): D64.9 - Anemia, unspecified .. 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 Patient was brought to [facility] on 12/13 by friend for confusion x 2 weeks weakness and flu like symptoms. Patient was admitted to [facility] from 12/13/17 to 12/18/17 treated for metabolic encephalopathy related to UTI and then DC'd to [facility]. Patient was seen in the emergency department related to altered mentation and anemia . The patient at that time was had hemoglobin of 9.3 and her rectal examination was negative for blood. She was deemed safe for discharge with follow-up as an outpatient. Patient again presented to the ER 12/25/17 for increased altered mentation since falling at her [facility] at approximately 8 :15 AM 12/25. The patient has a baseline history of altered mentation that is thought to be related to her history of alcohol abuse and Wernicke's encephalopathy. Psychiatry determined that she is not competent to make her own medical decisions. History of AVNRT Hypertension -S/P AV ann ablation on 02/15/2017. -Continue on low-dose metoprolol 6.25 mg po bid - hold parameters in place. Acute kidney injury on chronic -stable - creatinine around 1.4 -Avoid nephrotoxins Altered mental status- Improved, cooperative and appropriate -CT head negative, normal TSH, normal RPR, normal ammonia level -Possibly Wernicke's encephalopathy, continue thiamine, continue seizure precautions -Psych declined admission, they feel this is alcohol-related. Not competent to make decisions. -Continuing Seroquel 50 mg nightly -Case management working on guardianship appointment to obtain accepting facility -Continues to have intermittent confusion, although mostly oriented. Family unwilling to take care of the patient. Generalized weakness - improved, up and ambulating. Resolved. Anemia -Gastroenterology consulted, recommends outpatient follow-up -H&H improved, stable around 11. EtOH -Counseled on cessation -Continue thiamine Full code. Ambulation. 07/06/2018: Patient has capacity. Discharged to go with her friend. However, we have not able to get in touch with her friend. (2) Anemia Qualifiers: Anemia type: unspecified type Qualified Code(s): D64.9 - Anemia, unspecified
[2018-07-07] MEDS: Metoprolol Tartrate 25 MG Tablet PO SCH ×2 (09:36→20:36)
[2018-07-07] MEDS: Senna/Docusate Sodium 8.6/50 MG Tablet PO SCH ×2 (09:36→20:35)
[2018-07-07] MEDS: QUEtiapine 25 MG Tablet PO SCH (20:35)
--- NOTE | 2018-07-07 23:41 | P.PN ---
Subjective Interval history: Follow-up altered mental status,EtOH, anemia, general weakness and hypertension. Patient is doing well. Ambulating well. Says her mother is coming to visit her today. Physical Exam Vital signs: Vital Signs 07/07/18 08:00 Temperature 97.6 F Pulse Rate 78 Respiratory Rate 16 Blood Pressure 90/65 L Pulse Oximetry 96 Intake & Output 07/07/18 07/07/18 07/08/18 06:59 18:59 06:59 Intake Total 480 / 480 Balance 480 / 480 Weight 54.4 kg Intake: Oral 480 / 480 Other: # Voids 4 # Bowel Movements 1 Narrative: GENERAL: Alert, NAD. Coherent thoughts. SKIN: Warm and dry. HEAD: Normocephalic. EYES: No scleral icterus. No injection or drainage. NECK: Supple, trachea midline. No JVD or lymphadenopathy. CARDIOVASCULAR: Regular rate and rhythm without murmurs, gallops, or rubs. RESPIRATORY: Breath sounds equal bilaterally. No accessory muscle use. GASTROINTESTINAL: Abdomen soft, non-tender, nondistended. MUSCULOSKELETAL: No cyanosis, or edema. BACK: Nontender without obvious deformity. No CVA tenderness. Results - Labs CBC & Chem 7: 06/07/18 07:51 06/07/18 07:51 - Procedures none Assessment and Plan - Assessment (1) Altered mental status Code(s): R41.82 - Altered mental status, unspecified Status: Chronic Plan: .. (2) Anemia Code(s): D64.9 - Anemia, unspecified Status: Chronic Plan: .. (3) Tachyarrhythmia Code(s): R00.0 - Tachycardia, unspecified Status: Chronic Plan: .. (4) COPD (chronic obstructive pulmonary disease) Code(s): J44.9 - Chronic obstructive pulmonary disease, unspecified Status: Chronic Plan: .. (5) HTN (hypertension) Code(s): I10 - Essential (primary) hypertension Status: Chronic Plan: (2) Anemia Qualifiers: Anemia type: unspecified type Qualified Code(s): D64.9 - Anemia, unspecified .. 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 Patient was brought to [facility] on 12/13 by friend for confusion x 2 weeks weakness and flu like symptoms. Patient was admitted to [facility] from 12/13/17 to 12/18/17 treated for metabolic encephalopathy related to UTI and then DC'd to [facility]. Patient was seen in the emergency department related to altered mentation and anemia . The patient at that time was had hemoglobin of 9.3 and her rectal examination was negative for blood. She was deemed safe for discharge with follow-up as an outpatient. Patient again presented to the ER 12/25/17 for increased altered mentation since [facility] 8 :15 AM 12[facility]25. The patient has a baseline history of altered mentation that is thought to be related to her history of alcohol abuse and Wernicke's encephalopathy. Psychiatry determined that she is not competent to make her own medical decisions. History of AVNRT Hypertension -S/P AV ann ablation on 02/15/2017. -Continue on low-dose metoprolol 6.25 mg po bid - hold parameters in place. Acute kidney injury on chronic -stable - creatinine around 1.4 -Avoid nephrotoxins Altered mental status- Improved, cooperative and appropriate -CT head negative, normal TSH, normal RPR, normal ammonia level -Possibly Wernicke's encephalopathy, continue thiamine, continue seizure precautions -Psych declined admission, they feel this is alcohol-related. Not competent to make decisions. -Continuing Seroquel 50 mg nightly -Case management working on guardianship appointment to obtain accepting facility -Continues to have intermittent confusion, although mostly oriented. Family unwilling to take care of the patient. Generalized weakness - improved, up and ambulating. Resolved. Anemia -Gastroenterology consulted, recommends outpatient follow-up -H&H improved, stable around 11. EtOH -Counseled on cessation -Continue thiamine Full code. Ambulation. 07/07/2018: Patient has capacity. Discharged to go with her friend. However, we have not able to get in touch with her friend. Patient mother may come today to visit. (2) Anemia Qualifiers: Anemia type: unspecified type Qualified Code(s): D64.9 - Anemia, unspecified
[2018-07-08] MEDS: Metoprolol Tartrate 25 MG Tablet PO SCH ×2 (08:56→20:08)
[2018-07-08] MEDS: Senna/Docusate Sodium 8.6/50 MG Tablet PO SCH ×2 (08:56→20:09)
[2018-07-08] MEDS: QUEtiapine 25 MG Tablet PO SCH (20:09)
--- NOTE | 2018-07-08 22:39 | P.PN ---
Subjective Interval history: Follow-up altered mental status,EtOH, anemia, general weakness and hypertension. Patient is doing well. Ambulating well. No acute concerns. Physical Exam Vital signs: Vital Signs 07/08/18 08:00 07/08/18 20:00 Temperature 97.1 F L 98 F Pulse Rate 72 82 Respiratory Rate 18 14 Blood Pressure 104/72 122/79 Pulse Oximetry 97 99 Intake & Output 07/08/18 07/08/18 07/09/18 06:59 18:59 06:59 Intake Total 708 / 708 Balance 708 / 708 Intake: Oral 708 / 708 Other: # Voids 6 Narrative: GENERAL: Alert, NAD. Coherent thoughts. SKIN: Warm and dry. HEAD: Normocephalic. EYES: No scleral icterus. No injection or drainage. NECK: Supple, trachea midline. No JVD or lymphadenopathy. CARDIOVASCULAR: Regular rate and rhythm without murmurs, gallops, or rubs. RESPIRATORY: Breath sounds equal bilaterally. No accessory muscle use. GASTROINTESTINAL: Abdomen soft, non-tender, nondistended. MUSCULOSKELETAL: No cyanosis, or edema. BACK: Nontender without obvious deformity. No CVA tenderness. Results - Labs CBC & Chem 7: 06/07/18 07:51 06/07/18 07:51 - Procedures none Assessment and Plan - Assessment (1) Altered mental status Code(s): R41.82 - Altered mental status, unspecified Status: Chronic Plan: .. (2) Anemia Code(s): D64.9 - Anemia, unspecified Status: Chronic Plan: .. (3) Tachyarrhythmia Code(s): R00.0 - Tachycardia, unspecified Status: Chronic Plan: .. (4) COPD (chronic obstructive pulmonary disease) Code(s): J44.9 - Chronic obstructive pulmonary disease, unspecified Status: Chronic Plan: .. (5) HTN (hypertension) Code(s): I10 - Essential (primary) hypertension Status: Chronic Plan: (2) Anemia Qualifiers: Anemia type: unspecified type Qualified Code(s): D64.9 - Anemia, unspecified .. 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 Patient was brought to [facility] on 12/13 by friend for confusion x 2 weeks weakness and flu like symptoms. Patient was admitted to [facility] from 12/13/17 to 12/18/17 treated for metabolic encephalopathy related to UTI and then DC'd to [facility]. Patient was seen in the emergency department related to altered mentation and anemia . The patient at that time was had hemoglobin of 9.3 and her rectal examination was negative for blood. She was deemed safe for discharge with follow-up as an outpatient. Patient again presented to the ER 12/25/17 for increased altered mentation since falling at her custodial at approximately 8 :15 AM 12/25. The patient has a baseline history of altered mentation that is thought to be related to her history of alcohol abuse and Wernicke's encephalopathy. Psychiatry determined that she is not competent to make her own medical decisions. History of AVNRT Hypertension -S/P AV ann ablation on 02/15/2017. -Continue on low-dose metoprolol 6.25 mg po bid - hold parameters in place. Acute kidney injury on chronic -stable - creatinine around 1.4 -Avoid nephrotoxins Altered mental status- Improved, cooperative and appropriate -CT head negative, normal TSH, normal RPR, normal ammonia level -Possibly Wernicke's encephalopathy, continue thiamine, continue seizure precautions -Psych declined admission, they feel this is alcohol-related. Not competent to make decisions. -Continuing Seroquel 50 mg nightly -Case management working on guardianship appointment to obtain accepting facility -Continues to have intermittent confusion, although mostly oriented. Family unwilling to take care of the patient. Generalized weakness - improved, up and ambulating. Resolved. Anemia -Gastroenterology consulted, recommends outpatient follow-up -H&H improved, stable around 11. EtOH -Counseled on cessation -Continue thiamine Full code. Ambulation. 07/08/2018: Patient has capacity. Discharged to go with her friend. However, we have not able to get in touch with her friend. No safe discharge plan. (2) Anemia Qualifiers: Anemia type: unspecified type Qualified Code(s): D64.9 - Anemia, unspecified
[2018-07-09 09:10] VITALS: O2SAT 98
[2018-07-09] MEDS: Senna/Docusate Sodium 8.6/50 MG Tablet PO SCH ×2 (09:34→20:35)
[2018-07-09] MEDS: Metoprolol Tartrate 25 MG Tablet PO SCH ×2 (12:08→20:32)
--- NOTE | 2018-07-09 13:50 | P.PN ---
Subjective Interval history: Follow-up altered mental status,EtOH, anemia, general weakness and hypertension. Patient is currently resting in bed. Denies any chest pain, shortness of breath, fever or chills. She is ablating well. She wants to go home. Physical Exam Vital signs: Vital Signs 07/08/18 20:00 07/09/18 08:00 07/09/18 11:30 Temperature 98 F 97.4 F L Pulse Rate 82 91 H 83 Respiratory Rate 14 18 Blood Pressure 122/79 102/64 104/70 Pulse Oximetry 99 98 Intake & Output 07/08/18 07/09/18 07/09/18 18:59 06:59 18:59 Intake Total 708 / 708 Balance 708 / 708 Intake: Oral 708 / 708 Other: # Voids 6 Date of Last Bowel Movement 07/08/18 Narrative: GENERAL: Alert, NAD. Coherent thoughts process. SKIN: Warm and dry. HEAD: Normocephalic. EYES: No scleral icterus. No injection or drainage. NECK: Supple, trachea midline. No JVD or lymphadenopathy. CARDIOVASCULAR: Regular rate and rhythm without murmurs, gallops, or rubs. RESPIRATORY: Breath sounds equal bilaterally. No accessory muscle use. GASTROINTESTINAL: Abdomen soft, non-tender, nondistended. MUSCULOSKELETAL: No cyanosis, or edema. BACK: Nontender without obvious deformity. No CVA tenderness. Results - Labs CBC & Chem 7: 06/07/18 07:51 06/07/18 07:51 - Procedures none Assessment and Plan - Assessment (1) Altered mental status Code(s): R41.82 - Altered mental status, unspecified Status: Chronic Plan: .. (2) Anemia Code(s): D64.9 - Anemia, unspecified Status: Chronic Plan: .. (3) Tachyarrhythmia Code(s): R00.0 - Tachycardia, unspecified Status: Chronic Plan: .. (4) COPD (chronic obstructive pulmonary disease) Code(s): J44.9 - Chronic obstructive pulmonary disease, unspecified Status: Chronic Plan: .. (5) HTN (hypertension) Code(s): I10 - Essential (primary) hypertension Status: Chronic Plan: (2) Anemia Qualifiers: Anemia type: unspecified type Qualified Code(s): D64.9 - Anemia, unspecified .. 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 Patient was brought to [facility] on 12/13 by friend for confusion x 2 weeks weakness and flu like symptoms. Patient was admitted to [facility] from 12/13/17 to 12/18/17 treated for metabolic encephalopathy related to UTI and then DC'd to [facility]. Patient was seen in the emergency department related to altered mentation and anemia . The patient at that time was had hemoglobin of 9.3 and her rectal examination was negative for blood. She was deemed safe for discharge with follow-up as an outpatient. Patient again presented to the ER 12/25/17 for increased altered mentation since falling at [facility] [place] [facility] at approximately 8 :15 AM 12/25. The patient has a baseline history of altered mentation that is thought to be related to her history of alcohol abuse and Wernicke's encephalopathy. Psychiatry determined that she is not competent to make her own medical decisions. History of AVNRT Hypertension -S/P AV ann ablation on 02/15/2017. -Continue on low-dose metoprolol 6.25 mg po bid - hold parameters in place. Acute kidney injury on chronic -stable - creatinine around 1.4 -Avoid nephrotoxins Altered mental status- Improved, cooperative and appropriate -CT head negative, normal TSH, normal RPR, normal ammonia level -Possibly Wernicke's encephalopathy, continue thiamine, continue seizure precautions -Psych declined admission, they feel this is alcohol-related. Not competent to make decisions. -Continuing Seroquel 50 mg nightly -Case management working on guardianship appointment to obtain accepting facility -Continues to have intermittent confusion, although mostly oriented. Generalized weakness - improved, up and ambulating. Resolved. Anemia -Gastroenterology consulted, recommends outpatient follow-up -H&H improved, stable around 11. EtOH -Counseled on cessation -Continue thiamine Full code. Ambulation. 07/09/2018: Patient has capacity. Psychiatry has also determined that patient has capacity. Patient initially wanted to go home with her friend. However patient or our staff have been unable to reach patient's friend. Since patient has capacity, if a safe discharge is that she has hotel placement is arranged, patient can likely be discharged. Patient's mother lives in town. (2) Anemia Qualifiers: Anemia type: unspecified type Qualified Code(s): D64.9 - Anemia, unspecified
[2018-07-09] MEDS: QUEtiapine 25 MG Tablet PO SCH (20:31)
[2018-07-10 09:11] VITALS: BP 97/61; PULSE 64; RESP 14; TEMP 97.5
[2018-07-10] MEDS: Metoprolol Tartrate 25 MG Tablet PO SCH (09:14)
[2018-07-10] MEDS: Senna/Docusate Sodium 8.6/50 MG Tablet PO SCH (09:14)
--- NOTE | 2018-07-10 19:56 | P.PN ---
Physical Exam Vital signs: Vital Signs 07/10/18 08:00 Temperature 97.5 F L Pulse Rate 64 Respiratory Rate 14 Blood Pressure 97/61 L Pulse Oximetry 98 Intake & Output 07/10/18 07/10/18 07/11/18 06:59 18:59 06:59 Intake Total 240 / 240 Balance 240 / 240 Weight 54.4 kg Intake: Oral 240 / 240 Other: # Voids 1 Date of Last Bowel Movement 07/09/18 07/08/18 Results - Labs CBC & Chem 7: 06/07/18 07:51 06/07/18 07:51 - Procedures none Assessment and Plan - Assessment (1) Altered mental status Code(s): R41.82 - Altered mental status, unspecified Status: Chronic Plan: .. (2) Anemia Code(s): D64.9 - Anemia, unspecified Status: Chronic Plan: .. (3) Tachyarrhythmia Code(s): R00.0 - Tachycardia, unspecified Status: Chronic Plan: .. (4) COPD (chronic obstructive pulmonary disease) Code(s): J44.9 - Chronic obstructive pulmonary disease, unspecified Status: Chronic Plan: .. (5) HTN (hypertension) Code(s): I10 - Essential (primary) hypertension Status: Chronic Plan: (2) Anemia Qualifiers: Anemia type: unspecified type Qualified Code(s): D64.9 - Anemia, unspecified .. 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 Continue the same management. VSS. 06/[address] Serrano, notes reviewed. Patient is not able to make decision on her own. Continue the same management. 06/18- No change in treatment, stable. Will consult psychiatry for evaluation/ of decision making consulted Dr. Blank neuropsychology. 52-year-old female with History of PAT /Hypertension S/P AV ann ablation in the past Jul 2017 -Continue on low-dose metoprolol 6.25 mg po bid -hold parameters in place. Acute kidney injury on chronic -Creatinine 1.41 -Avoid nephrotoxins Altered mental status- Improved cooperative and appropriate -CT head negative, normal TSH, normal RPR, normal ammonia level -Consider Wernicke's encephalopathy, continue folic acid and thiamine, continue seizure precautions -Psych declined admission, they feel this is alcohol-related. Not competent to make decisions. -Continuing Seroquel 100 mg nightly -Case management working on guardianship appointment to obtain accepting facility -Continues to have intermittent confusion, although mostly oriented. Family unwilling to take care of the patient. Generalized weakness - improved, up and ambulating -UA negative, no electrolyte imbalance noted Anemia -Recent hgb 11, Hct 31.8, MCV 89.9 -Gastroenterology consulted, recommends outpatient follow-up -H&H improved, stable EtOH -Counseled on cessation -Continue vitamin D h/o COPD no SOB -Duonebs as needed DVT Prophylaxis: ambulatory Difficult discharge. Case management is following for discharge plan. Consult neuropsychology Dr. Blank Seen by psychiatry Dr. Serrano. Patient is not able to make decisions on her own. (2) Anemia Qualifiers: Anemia type: unspecified type Qualified Code(s): D64.9 - Anemia, unspecified
--- NOTE | 2018-07-10 19:57 | P.DS ---
Date of admission: 01/09/18 11:23 Primary care physician: UNKNOWN Anticipated date of discharge: 07/03/18 Brief History from admission: Date of admission 12/26/2017 The patient is a 52 year old female with past medical history which includes Abnormal LFTs, EtOH abuse, chronic back pain, COPD, hypertension, tachyarrhythmia s/p EPS with ablation of AV re-entry node tachycardia Dr. Vazquez 2016. Patient is currently confused information gathered from patient as well as prior charting. Patient was brought to [facility] on by friend for confusion x 2 weeks weakness and flu like symptoms. Patient was admitted to [facility] from 12/13/17 to 12/18/17 treated for metabolic encephalopathy related to UTI and then DC'd to [facility]. Patient was seen in the [facility] emergency department related to altered mentation and anemia 12/24/18. The patient at that time was had hemoglobin of 9.3 and her rectal examination was negative for blood. She was deemed safe for discharge with follow-up as an outpatient. Patient again presented to the ER 12/25/17 for increased altered mentation since falling at her intermediate at approximately 8 :15 AM 12/25. The patient has a baseline history of altered mentation that is thought to be related to her history of alcohol abuse and Wernicke's encephalopathy. Discussed patient with nurse at [facility] who reports patient has been confused since admission with agitation at times. Patient is able to correctly provide her name, that she is in [place] but unable to give city, patient also able to provide year but not the month or day. Patient reports that she has had a cold for a, "awhile." offers no other complaints at this time. DS: Diagnosis - Discharge Diagnosis (1) Altered mental status Status: Chronic (2) Anemia Status: Chronic (3) Tachyarrhythmia Status: Chronic (4) COPD (chronic obstructive pulmonary disease) Status: Chronic (5) HTN (hypertension) Status: Chronic (6) Alcoholic Korsakoff syndrome Status: Acute DS: Medications - Discharge Medications Prescriptions: folic acid 1 mg PO DAILY #30 tab metoprolol tartrate 6.25 mg PO Q12HR 30 Days tab quetiapine 50 mg PO HS #30 tab thiamine HCl (vitamin B1) 100 mg PO DAILY #30 tab DS: Summary Hospital Course: The patient is a 52 year old female with past medical history which includes Abnormal LFTs, EtOH abuse, chronic back pain, COPD, hypertension, SVT. Patient was brought to [facility] on 12/13 by friend for confusion x 2 weeks weakness and flu like symptoms. Patient was admitted to [facility] from 12/13/17 to 12/18/17 treated for metabolic encephalopathy related to UTI and then DC'd to [facility]. Patient was seen in the emergency department related to altered mentation and anemia . The patient at that time was had hemoglobin of 9.3 and her rectal examination was negative for blood. She was deemed safe for discharge with follow-up as an outpatient. Patient again presented to the ER 12/25/17 for increased altered mentation since falling at her intermediate at approximately 8 :15 AM 12/25. The patient has a baseline history of altered mentation that is thought to be related to her history of alcohol abuse and Wernicke's encephalopathy. Psychiatry determined that she is not competent to make her own medical decisions. History of AVNRT Hypertension -S/P AV ann ablation on 02/15/2017. -Continue on low-dose metoprolol 6.25 mg po bid - hold parameters in place. Acute kidney injury on chronic -stable - creatinine around 1.4 -Avoid nephrotoxins Altered mental status- Improved, cooperative and appropriate -CT head negative, normal TSH, normal RPR, normal ammonia level -Possibly Wernicke's encephalopathy, continue thiamine, continue seizure precautions -Psych declined admission, they feel this is alcohol-related. Not competent to make decisions. -Continuing Seroquel 50 mg nightly -Case management working on guardianship appointment to obtain accepting facility -Continues to have intermittent confusion, although mostly oriented. Generalized weakness - improved, up and ambulating. Resolved. Anemia -Gastroenterology consulted, recommends outpatient follow-up -H&H improved, stable around 11. EtOH -Counseled on cessation -Continue thiamine Full code. Ambulation. 07/09/2018: Patient has capacity. Psychiatry has also determined that patient has capacity. Patient initially wanted to go home with her friend. However patient or our staff have been unable to reach patient's friend. Since patient has capacity, if a safe discharge is that she has hotel placement is arranged, patient can likely be discharged. Patient's mother lives in [facility]. 07/10 Patient is DC to follow up as OP with PCP and consultants - Time Spent with Patient Total time spent providing and/or coordinating discharge services: Greater than 30 minutes Exam Vital signs: Vital Signs 07/10/18 08:00 Temperature 97.5 F L Pulse Rate 64 Respiratory Rate 14 Blood Pressure 97/61 L Pulse Oximetry 98 Intake & Output 07/10/18 07/10/18 07/11/18 06:59 18:59 06:59 Intake Total 240 / 240 Balance 240 / 240 Weight 54.4 kg Intake: Oral 240 / 240 Other: # Voids 1 Date of Last Bowel Movement 07/09/18 07/08/18 Narrative: GENERAL: Pleasant 52 female, appears in NAD. CARDIOVASCULAR: Regular rate and rhythm. No murmur appreciated. RESPIRATORY: No accessory muscle use. Clear to auscultation. Breath sounds equal bilaterally. GASTROINTESTINAL: Abdomen soft, non-tender, nondistended. Normoactive bowel sounds x4. MUSCULOSKELETAL: Extremities without clubbing, cyanosis, or edema. No obvious deformities. NEUROLOGICAL: No focal deficits. Normal speech. Results Procedures completed during hospitalization: none Discharge Plan - Discharge Disposition Patient Disposition: Discharge Home - Discharge Condition Condition: Good - Discharge Order Discharge Orders: Discharge Order (Routine); Ordered 07/03/18 Ordered By: Gustavo Peñaloza - Discharge Details Anticipated Discharge Date: 07/03/18 - Physicians Team Primary Care Provider: UNKNOWN, Attending Provider: Bindu Newton Other Providers: Lai Marley MD ; [facility],Agency ; [facility]Agency ; [facility],Agency ; [facility],Agency ; [facility],Agency ; Jeronimo Blank, PhD ; Rolo Serrano MD - Rxs /Orders / Referrals /Forms Prescriptions: New folic acid 1 mg Tablet 1 mg PO DAILY Qty: 30 RF: 11 metoprolol tartrate 25 mg Tablet 6.25 mg PO Q12HR 30 Days RF: 3 quetiapine 25 mg Tablet 50 mg PO HS Qty: 30 RF: 3 thiamine HCl (vitamin B1) 100 mg Tablet 100 mg PO DAILY Qty: 30 RF: 11 Continue docusate sodium 100 mg Capsule 100 mg PO BID pantoprazole 20 mg Tablet,Delayed Release (Dr/Ec) 20 mg PO DAILY Discontinued ferrous sulfate 325 mg (65 mg iron) Tablet 325 mg PO BIDPC lorazepam 0.5 mg Tablet 0.5 mg PO BID metoprolol tartrate 25 mg Tablet 25 mg PO Q12HR quetiapine 25 mg Tablet 75 mg PO DAILY Referrals: UNKNOWN, [Primary Care Provider] - See Instructions (Follow up with [facility] [phone] within 1-2 weeks. ) - Discharge Instructions Patient Printed Instructions: Metoprolol (By mouth), Thiamine (By mouth), Folic Acid (By mouth), Quetiapine (By mouth), Encephalopathy (DC) - Post Discharge Care Plan Care Plan Goals: Your Health Problems: Goals to Promote Your Health: * To prevent worsening of your condition * To maintain your health at the optimal level Directions to Meet Your Goals: * Take your medications as prescribed * Follow your dietary instruction * Follow activity as directed * Keep your appointments as scheduled * Take your immunizations and boosters as scheduled * If your symptoms worsen call your PCP * If no PCP go to Urgent Care or Emergency Room Smoking is dangerous to your health. Avoid second hand smoke. You may reach the 24-hour crisis hotline for domestic abuse at [phone]- 4632.Your Health Problems: Goals to Promote Your Health: * To prevent worsening of your condition * To maintain your health at the optimal level Directions to Meet Your Goals: * Take your medications as prescribed * Follow your dietary instruction * Follow activity as directed * Keep your appointments as scheduled * Take your immunizations and boosters as scheduled * If your symptoms worsen call your PCP * If no PCP go to Urgent Care or Emergency Room Smoking is dangerous to your health. Avoid second hand smoke. You may reach the 24-hour crisis hotline for domestic abuse at .
== END 2018-07-10 13:45 | disposition home or self-care (01) ==
LOC: N04 01-09 11:23
PROVIDERS: ADMIT Hospitalist; ATTEND Hospitalist